=== PATIENT | male | born 1980 | race Caucasian/White ===

== ENCOUNTER 2017-07-22 14:21 | Inpatient (IN) | payer MEDICARE, MEDICAID, OTHER ==
[~2017-07-22] VITALS: Ht 180.3 cm; Wt 105.2 kg
[2017-07-22 14:21] VITALS: BP 129/67
[~2017-07-22 14:21] MED LIST: ABILIFY10 MG ORAL; ACETAMINOPHEN500 M5 PO; AMBIEN10 M1 ORAL; AMBIEN5 MG ORAL; ANUSOL-HC25 MG RECTAL; ASPIR 8181 MG ORAL; BENADRYL50 MG ORAL; COLACE250 MG ORAL; CYCLOBENZAPRINE10 MG ORAL; DEPAKOTE ER500 MG ORAL; DEPAKOTE500 MG PO; DESYREL100 MG PO; DILAUDID1 MG/1 ML PO; DILAUDID4 MG ORAL; DOCUSATE SODIU100 MG ORAL; DULCOLAX10 MG RC; FERROUS SULFAT325 M2 ORAL; FLEET ENEMA133 ML RECTAL; GABAPENTIN400 MG ORAL; GEODON20 MG ORAL; HUMALOG100 UNIT/3 SUBQ; HUMULIN R100 UNIT/1 SUBQ; IBUPROFEN600 MG ORAL; IMODIUM2 MG ORAL; LANTUS SOL100 UNIT/1 SUBQ; LEVEMIR FL100 UNIT/1 SUBQ; LEVEMIR100 UNIT/1 SUBQ; LISINOPRIL5 MG ORAL; LORAZEPAM1 MG ORAL; LYRICA75 M1 ORAL; METFORMIN HCL1000 M1 ORAL; MIRALAX17 GM ORAL; NEURONTIN300 MG ORAL; NORCO 5-325 TA1 EAC1 ORAL; NORCO 5-325 TA1 EACH ORAL; NOVOLIN R100 UNIT/1 SUBQ; NOVOLOG100 UNIT/3; NOVOLOG100 UNIT/3 SUBQ; PERCOCET 10-321 EAC1 PO; PERCOCET 10-321 EACH ORAL; PREPARATION H26 GM TP; QUETIAPINE FUM100 MG ORAL; QUETIAPINE FUM200 MG ORAL; RANITIDINE HCL300 MG ORAL; SENOKOT1 TAB ORAL; SERTRALINE HCL100 MG PO; SERTRALINE HCL25 MG ORAL; TRAMADOL HCL50 MG ORAL; UNOBMED; VIBRAMYCIN100 MG ORAL; WELLBUTRIN XL150 M1 ORAL; ZOFRAN4 MG/5 ML ORAL; ZOLOFT50 MG ORAL; ZOLPIDEM TARTRA10 MG ORAL; ZYPREXA5 MG ORAL
[2017-07-22] MEDS ORDERED: Solu-MEDROL 125mg Inj IVP ONE (14:45)
[2017-07-22] MEDS: Albuterol ud Inhalation HHN SCH ×3 (15:01→16:14)
[2017-07-22] MEDS: Ipratropium 0.02% Inh Soln 2.5ml UD HHN SCH ×3 (15:01→16:14)
[2017-07-22] MEDS ORDERED: Promethazine/Codeine 5ml UD ORAL PRN (15:30)
[2017-07-22] MEDS ORDERED: LORazepam Inj 2mg/ml 1ml IV PRN (15:30)
[2017-07-22] MEDS ORDERED: Albuterol/Ipratropium 3ml neb HHN PRN (15:30)
--- NOTE | 2017-07-22 15:59 | Diagnostic Imaging Report ---
Indication: SOB Technique: One view of the chest Comparison: 11/19/2015 Findings: Lungs and pleural spaces are clear. Heart size is normal. No significant change Impression: No acute process
[2017-07-22 16:23] LABS: BASOPHILS % (AUTO) 0.8 % (0.0-2.0); EOSINOPHILS % (AUTO) 1.2 % (0.0-3.0); LYMPHOCYTES % (AUTO) 24.9 % (20.0-45.0); MEAN CORPUSCULAR HEMOGLOBIN 29.8 PG (27.0-31.0); MEAN CORPUSCULAR HGB CONC 34.4 G/DL (32.0-36.0); MEAN CORPUSCULAR VOLUME 87 FL (80-99); MEAN PLATELET VOLUME 7.8 FL (6.5-10.1); MONOCYTES % (AUTO) 9.7 % (1.0-10.0); NEUTROPHILS % (AUTO) 63.4 % (45.0-75.0); PLATELET COUNT 266 K/UL (150-450); RED BLOOD COUNT 4.49 M/UL (4.70-6.10); RED CELL DISTRIBUTION WIDTH 12.5 % (11.6-14.8)
--- NOTE | 2017-07-22 16:43 | Emergency Room Report ---
History of Present Illness General Chief Complaint: Upper Respiratory Illness Source: Patient Present Illness HPI 36-year-old male presents ED for evaluation. Patient resides in a long term facility. Patient has had a persistent cough times one week with wheezing. Has history of COPD. Patient denies any fevers or chills. States cough is dry. Denies chest pain or shortness of breath. [facility]Chek at [facility] was also high fashion 400. Patient has a history of diabetes. Patient was given insulin afterwards. No aggravating relieving factors. Denies any other associated symptoms Allergies: Coded Allergies: No Known Allergies (Unverified , 02/06/15) Patient History Past Medical History: DM, HTN Past Surgical History: none Pertinent Family History: none Social History: Denies: smoking, alcohol use, drug use Immunizations: UTD Reviewed Nursing Documentation: PMH: Agreed, PSxH: Agreed Nursing Documentation-PMH Past Medical History: Deferred Hx Cardiac Problems: Yes Hx Hypertension: Yes Hx Diabetes: Yes Hx Cancer: No Hx Gastrointestinal Problems: No Hx Neurological Problems: No Hx Peripheral Neuropathy: Yes Hx Dizziness: Yes Hx Weakness: Yes Review of Systems All Other Systems: negative except mentioned in HPI Physical Exam Vital Signs Date Time Temp Pulse Resp B/P (MAP) Pulse Ox O2 Delivery O2 Flow Rate FiO2 07/22/17 14:12 97.3 103 15 129/67 97 Room Air Sp02 EP Interpretation: reviewed, normal General Appearance: no apparent distress, alert, GCS 15, non-toxic Head: normocephalic, atraumatic Eyes: bilateral eye normal inspection, bilateral eye PERRL ENT: hearing grossly normal, normal pharynx, no angioedema, normal voice Neck: full range of motion, supple/symm/no masses Respiratory: speaking full sentences, wheezing Cardiovascular #1: regular rate, rhythm, no edema Cardiovascular #2: 2+ carotid (R), 2+ carotid (L), 2+ radial (R), 2+ radial (L) , 2+ dorsalis pedis (R), 2+ dorsalis pedis (L) Gastrointestinal: normal bowel sounds, non tender, soft, non-distended, no guarding, no rebound Rectal: deferred Genitourinary: normal inspection, no CVA tenderness Musculoskeletal: back normal, gait/station normal, normal range of motion, non- tender Neurologic: alert, oriented x3, responsive, motor strength/tone normal, sensory intact, speech normal Psychiatric: judgement/insight normal, memory normal, mood/affect normal, no suicidal/homicidal ideation Reflexes: 3+ bicep (R), 3+ bicep (L), 3+ tricep (R), 3+ tricep (L), 3+ knee (R) , 3+ knee (L) Skin: normal color, no rash, warm/dry, well hydrated Lymphatic: no adenopathy Medical Decision Making Diagnostic Impression: Primary Impression: COPD exacerbation ER Course Hospital Course 36-year-old M presenting to ED with cough, wheezing h/o COPD Differential diagnoses include: Pneumonia, CHF exacerbation, pneumothorax, fluid overload Clinical course Patient placed on stretcher. On alarm security or surveillance monitor with stable vitals. After initial history and physical, I ordered nebulizer treatments. I ordered labs, IV fluids, EKG, chest x-ray, blood cultures, UA. Labs - minimal leukocytosis noted, hemoglobin/hematocrit stable, electrolytes okay, lactate okay, troponins negative CXR - hyperinflated lungs. no infiltrates abx given. IVFs given. Case discussed with Dr. Keen and he agreed to the patient to his service for further care and support I feel this is a highly complex case requiring extensive working including EKG/ Rhythm strip, Xray/CT/US, Blood/urine lab work, repeat exams while in ED, and administration of strong opiates/narcotics for pain control, admission to hospital or close patient follow up. Diagnosis - COPD exacerbation Patient admitted to floor in serious condition Labs Test 07/22/17 15:55 07/22/17 16:45 White Blood Count 12.0 K/UL (4.8-10.8) Red Blood Count 4.49 M/UL (4.70-6.10) Hemoglobin 13.4 G/DL (14.2-18.0) Hematocrit 38.9 % (42.0-52.0) Mean Corpuscular Volume 87 FL (80-99) Mean Corpuscular Hemoglobin 29.8 PG (27.0-31.0) Mean Corpuscular Hemoglobin Concent 34.4 G/DL (32.0-36.0) Red Cell Distribution Width 12.5 % (11.6-14.8) Platelet Count 266 K/UL (150-450) Mean Platelet Volume 7.8 FL (6.5-10.1) Neutrophils (%) (Auto) 63.4 % (45.0-75.0) Lymphocytes (%) (Auto) 24.9 % (20.0-45.0) Monocytes (%) (Auto) 9.7 % (1.0-10.0) Eosinophils (%) (Auto) 1.2 % (0.0-3.0) Basophils (%) (Auto) 0.8 % (0.0-2.0) Sodium Level 141 mEQ/L (135-145) Potassium Level 4.0 mEQ/L (3.4-4.9) Chloride Level 101 mEQ/L (98-107) Carbon Dioxide Level 25 mEQ/L (20-30) Anion Gap 15 (5-15) Blood Urea Nitrogen 12 mg/dL (7-23) Creatinine 0.8 mg/dL (0.7-1.2) Estimat Glomerular Filtration Rate > 60 mL/min (>60) Glucose Level 78 mg/dL (74-106) Lactic Acid Level 1.90 mmol/L (0.66-2.22) Calcium Level 9.5 mg/dL (8.6-10.2) Magnesium Level 1.8 mg/dL (1.7-2.5) Total Bilirubin 0.2 mg/dL (0.0-1.2) Aspartate Amino Transf (AST/SGOT) 19 U/L (5-40) Alanine Aminotransferase (ALT/SGPT) 25 U/L (3-41) Alkaline Phosphatase 66 U/L (40-129) Total Creatine Kinase 562 U/L (38-174) Creatine Kinase MB 3.4 ng/mL (< 6.7) Creatine Kinase MB Relative Index 0.6 Troponin I < 0.30 ng/mL (<=0.30) Pro-B-Type Natriuretic Peptide 42 pg/mL (0-125) Total Protein 6.6 g/dL (6.6-8.7) Albumin 4.1 g/dL (3.5-5.2) Globulin 2.5 g/dL Albumin/Globulin Ratio 1.6 (1.0-2.7) Acetone Level Negative (NEGATIVE) EKG Diagnostic Results Rate: normal Rhythm: NSR ST Segments: no acute changes ASA given to the pt in ED: No Rhythm Strip Diag. Results EP Interpretation: yes Rhythm: NSR, no PVC's, no ectopy Chest X-Ray Diagnostic Results Chest X-Ray Diagnostic Results : Chest X-Ray Ordered: Yes # of Views/Limited/Complete: 1 View Indication: Shortness of Breath EP Interpretation: Yes Interpretation: no consolidation, no effusion, no pneumothorax, no acute cardiopulmonary disease Impression: No acute disease Electronically Signed by: Electronically signed by Archie Wells MD Last Vital Signs Date Time Temp Pulse Resp B/P (MAP) Pulse Ox O2 Delivery O2 Flow Rate FiO2 07/22/17 16:10 96 18 99 Room Air 07/22/17 14:21 97.3 129/67 Status: improved Disposition: ADMITTED INPATIENT Condition: Serious Referrals: INDU KEEN (PCP) ARCHIE WELLS M.D. Jul 22, 2017 16:43
[2017-07-22 16:50] LABS: TROPONIN I < 0.30 ng/mL (<=0.30)
[2017-07-22 16:53] LABS: ALANINE AMINOTRANSFERASE 25 U/L (3-41); ALBUMIN/GLOBULIN RATIO 1.6 (1.0-2.7); ANION GAP 15 (5-15); ASPARTATE AMINO TRANSFERASE 19 U/L (5-40); CALCIUM 9.5 mg/dL (8.6-10.2); CARBON DIOXIDE 25 mEQ/L (20-30); CHLORIDE 101 mEQ/L (98-107); CREATININE 0.8 mg/dL (0.7-1.2); GLOMERULAR FILTRATION RATE > 60 mL/min (>60); HEMOLYSIS 5; MAGNESIUM 1.8 mg/dL (1.7-2.5); SODIUM 141 mEQ/L (135-145); TOTAL PROTEIN 6.6 g/dL (6.6-8.7)
[2017-07-22] MEDS ORDERED: Morphine Sulfate 4mg/ml Inj IVP ONE (17:00)
[2017-07-22 17:04] LABS: CKMB 3.4 ng/mL (< 6.7)
[2017-07-22 17:17] LABS: APPEARANCE,URINE CLEAR; KETONES,URINE 1+ (NEGATIVE); LEUKOCYTE ESTERASE ,URINE 1+ (NEGATIVE); NITRITE,URINE NEGATIVE (NEGATIVE); PH,URINE 7 (4.5-8.0); PROTEIN,URINE NEGATIVE (NEGATIVE); UROBILINOGEN,URINE NORMAL MG/DL (0.0-1.0)
[2017-07-22 17:30] LABS: RBC,URINE 0-2 /HPF (0 - 0); WBC,URINE 0-2 /HPF (0 - 0)
[2017-07-22 18:58] VITALS: BP 129/79
[2017-07-22] MEDS: Lyrica 75mg cap ORAL SCH (19:44)
[2017-07-22] MEDS: Solu-MEDROL 125mg Inj IV SCH ×2 (19:44→23:56)
[2017-07-22 20:06] VITALS: BP 131/79
[2017-07-22] MEDS: Theophylline ER 100mg ORAL SCH (20:48)
[2017-07-22] MEDS: Heparin 5000 units/ml inj SUBQ SCH ×2 (20:48→20:58)
[2017-07-22] MEDS: NovoLOG Insulin Flexpen SUBQ SCH (20:50)
[2017-07-22] MEDS: Morphine Sulfate 2mg/ml Inj IVP PRN (20:51)
[2017-07-22] MEDS ORDERED: Levemir Flexpen SUBQ SCH (21:00)
[2017-07-22] MEDS: Albuterol/Ipratropium 3ml neb HHN SCH (23:00)
--- NOTE | 2017-07-22 23:30 | History and Physical Report ---
DATE OF ADMISSION: 07/22/2017 TIME: 2 p.m. CONSULTANTS: 1. Lashanda Pham M.D. 2. Dr. Licona. 3. Charmaine Victor M.D. 4. Tavo Malhotra M.D. 5. Antonio Napier M.D. CHIEF COMPLAINT: Cough, wheeze, and hyperglycemia. Brief History: The patient is a 36-year-old male from [facility] presents with above-mentioned diagnoses, cough and wheezing for about two days, getting worse, lost his voice. He also had blood sugar of about 450 this morning. The patient came to [place], diagnosed with the above, awaiting bed to be transferred to medical floor. Currently, calm in bed, slight short of breath,. No complaints. PAST MEDICAL HISTORY: Diabetes, COPD, and encephalopathy. PAST SURGICAL HISTORY: Neck. MEDICATIONS: Albuterol, Atrovent, Solu-Medrol, IV fluids. ALLERGIES: The patient claims [employer]. Social History: Positive smoke. No alcohol. No intravenous drug abuse. FAMILY HISTORY: Noncontributory. Review of Systems: No chest pain. Slight short of breath. No nausea, vomiting or diarrhea. PHYSICAL EXAMINATION: GENERAL: Slightly anxious in bed, oriented x3, no acute distress. Vital Signs: Temperature is 97 degrees, pulse 103, respirations 15, and blood pressure 129/67. CARDIOVASCULAR: No murmurs. LUNGS: Poor exchange. Slight wheeze bilaterally. ABDOMEN: Bowel sounds are positive. Nontender and nondistended. EXTREMITIES: No cyanosis, clubbing, or edema. NEUROLOGICAL: The patient moves all extremities, slightly weak. LABORATORY DATA: The lab results are pending. ASSESSMENT: 1. Cough. 2. Wheeze. 3. Chronic obstructive pulmonary disease exacerbation. 4. Diabetes. 5. Hyperglycemia. 6. Encephalopathy. 7. Chronic pain. Plan: Continue pre-medications. OT/PT. Dietary evaluation. O2 and pulmonary treatment. Taper off steroids. Antibiotics per Infectious Diseases. Resume home medications. CBC and BMP in the morning. Dr. Pham, Dr. Licona, Dr. Victor, Dr. Malhotra, and Dr. Napier to consult. We will continue to follow this patient medically. Aniceto Sepulveda D.O. DR: JAZIEL JOB#: [id number] CC:
[2017-07-23] VITALS: BP 126/68
[2017-07-23] MEDS: Morphine Sulfate 2mg/ml Inj IVP PRN ×6 (00:53→21:42)
[2017-07-23] MEDS: Albuterol/Ipratropium 3ml neb HHN SCH ×6 (02:55→23:15)
[2017-07-23 04:00] VITALS: BP 116/60
[2017-07-23] MEDS: Solu-MEDROL 125mg Inj IV SCH ×3 (05:37→21:42)
[2017-07-23] MEDS: NovoLOG Insulin Flexpen SUBQ SCH ×7 (05:38→20:43)
[2017-07-23 07:21] LABS: MEAN CORPUSCULAR HEMOGLOBIN 30.2 PG (27.0-31.0); MEAN CORPUSCULAR HGB CONC 34.3 G/DL (32.0-36.0); MEAN CORPUSCULAR VOLUME 88 FL (80-99); MEAN PLATELET VOLUME 7.7 FL (6.5-10.1); PLATELET COUNT 232 K/UL (150-450); RED BLOOD COUNT 4.31 M/UL (4.70-6.10); RED CELL DISTRIBUTION WIDTH 12.6 % (11.6-14.8); WHITE BLOOD COUNT 11.8 K/UL (4.8-10.8)
[2017-07-23 07:31] LABS: ALANINE AMINOTRANSFERASE 22 U/L (3-41); ALBUMIN/GLOBULIN RATIO 1.5 (1.0-2.7); ANION GAP 17 (5-15); ASPARTATE AMINO TRANSFERASE 14 U/L (5-40); CALCIUM 9.1 mg/dL (8.6-10.2); CARBON DIOXIDE 23 mEQ/L (20-30); CHLORIDE 96 mEQ/L (98-107); CREATININE 0.8 mg/dL (0.7-1.2); GLOMERULAR FILTRATION RATE > 60 mL/min (>60); HEMOLYSIS 0; POTASSIUM 4.2 mEQ/L (3.4-4.9); SODIUM 136 mEQ/L (135-145); TOTAL PROTEIN 6.5 g/dL (6.6-8.7)
[2017-07-23 08:00] VITALS: BP 116/51
--- NOTE | 2017-07-23 08:18 | General Progress Note ---
Assessment/Plan Assessment/Plan (1) Chiari malformation type II (2) Degenerative disc disease, cervical (3) Lumbar degenerative disc disease (4) Arthritis, lumbar spine (5) Peripheral neuropathy (6) Hydrocephalus (7) Diabetes mellitus Pt will be continued on Morphine as needed. Pt was d/w Dr. Napier and he concurred. Thank you for the courtesy of this consultation. Subjective Date patient seen: Jul 23, 2017 Time patient seen: 07:30 - am Allergies: Coded Allergies: No Known Allergies (Unverified , 02/06/15) Subjective Constitutional: Reports: weakness, Denies: chills, diaphoresis, fever, malaise , no symptoms, other HEENT: Denies: blurred vision, double vision, ear discharge, ear pain, eye pain , mouth pain, mouth swelling, no symptoms, nose congestion, nose pain, other, tearing, throat pain, throat swelling Cardiovascular: Denies: chest pain, edema, irregular heart rate, lightheadedness, no symptoms, other, palpitations, syncope Respiratory: Denies: SOB at rest, SOB with excertion, cough, no symptoms, orthopnea, other, shortness of breath, sputum, stridor, wheezing Gastrointestinal/Abdominal: Denies: abdomen distended, abdominal pain, black stools, blood in stool, constipated, diarrhea, difficulty swallowing, nausea, no symptoms, other, poor appetite, poor fluid intake, rectal bleeding, tarry stools, vomiting Genitourinary: Denies: burning, discharge, flank pain, frequency, hematuria, incontinence, no symptoms, other, pain, urgency Neurologic/Psychiatric: Reports: headache, numbness, tingling, weakness, Denies : anxiety, depressed, emotional problems, no symptoms, other, paresthesia, pre- existing deficit, seizure, tremors Endocrine: Denies: excessive sweating, flushing, increased hunger, increased thirst, increased urine, intolerance to cold, intolerance to heat, no symptoms, other, unexplained weight gain, unexplained weight loss Hematologic/Lymphatic: Denies: anemia, easy bleeding, easy bruising, no symptoms, other Subjective Pt is a known patient from prior admissions and has been admitted under the care of Dr. Sepulveda for COPD exacerbation. He has been started on Morphine 2mg IV Q4H PRN which has help to reduce his pain as per the patient. Objective Last 24 Hour Vital Signs Date Time Temp Pulse Resp B/P (MAP) Pulse Ox O2 Delivery O2 Flow Rate FiO2 07/23/17 07:38 105 16 98 Nasal Cannula 2.0 07/23/17 07:25 99 Nasal Cannula 2.0 07/23/17 07:25 105 20 Room Air 07/23/17 07:25 Nasal Cannula 2.0 07/23/17 07:25 105 20 99 Nasal Cannula 2.0 07/23/17 04:00 97.7 112 19 116/60 95 Room Air 07/23/17 03:05 109 16 98 Nasal Cannula 2.0 07/23/17 02:56 112 18 95 Nasal Cannula 2.0 07/23/17 00:00 97.9 101 18 126/68 95 Nasal Cannula 2.0 07/22/17 23:08 109 18 99 Nasal Cannula 2.0 07/22/17 23:01 109 18 97 Nasal Cannula 2.0 07/22/17 20:50 105 18 97 Nasal Cannula 2.0 07/22/17 20:49 102 20 Nasal Cannula 2.0 07/22/17 20:49 Nasal Cannula 2.0 07/22/17 20:49 94 Nasal Cannula 2.0 07/22/17 20:40 102 20 94 Nasal Cannula 2.0 07/22/17 20:06 98.1 102 20 131/79 93 Room Air 07/22/17 18:58 98.2 106 18 129/79 95 07/22/17 17:48 97.3 97 19 127/67 98 Room Air 07/22/17 16:10 96 18 99 Room Air 07/22/17 16:00 100 20 Room Air 07/22/17 15:33 103 20 100 Room Air 07/22/17 15:16 101 18 99 Room Air 07/22/17 15:15 99 20 100 Room Air 07/22/17 15:00 99 18 Room Air 07/22/17 15:00 99 18 99 Room Air 07/22/17 14:21 97.3 100 15 129/67 97 Room Air 07/22/17 14:12 97.3 103 15 129/67 97 Room Air Laboratory Tests 07/22/17 15:55: White Blood Count 12.0H, Red Blood Count 4.49L, Hemoglobin 13.4L, Hematocrit 38.9L, Mean Corpuscular Volume 87, Mean Corpuscular Hemoglobin 29.8, Mean Corpuscular Hemoglobin Concent 34.4, Red Cell Distribution Width 12.5, Platelet Count 266, Mean Platelet Volume 7.8, Neutrophils (%) (Auto) 63.4, Lymphocytes (% ) (Auto) 24.9, Monocytes (%) (Auto) 9.7, Eosinophils (%) (Auto) 1.2, Basophils ( %) (Auto) 0.8, Sodium Level 141, Potassium Level 4.0, Chloride Level 101, Carbon Dioxide Level 25, Anion Gap 15, Blood Urea Nitrogen 12, Creatinine 0.8, Estimat Glomerular Filtration Rate > 60, Glucose Level 78, Lactic Acid Level 1.90, Calcium Level 9.5, Magnesium Level 1.8, Total Bilirubin 0.2, Aspartate Amino Transf (AST/SGOT) 19, Alanine Aminotransferase (ALT/SGPT) 25, Alkaline Phosphatase 66, Total Creatine Kinase 562H, Creatine Kinase MB 3.4, Creatine Kinase MB Relative Index 0.6, Troponin I < 0.30, Pro-B-Type Natriuretic Peptide 42, Total Protein 6.6, Albumin 4.1, Globulin 2.5, Albumin/Globulin Ratio 1.6, Acetone Level Negative 07/22/17 16:45: Urine Color Pale yellow, Urine Appearance Clear, Urine pH 7, Urine Specific [place] 1.010, Urine Protein Negative, Urine Glucose (UA) Negative, Urine Ketones 1+H, Urine Occult Blood Negative, Urine Nitrite Negative, Urine Bilirubin Negative, Urine Urobilinogen Normal, Urine Leukocyte Esterase 1+H, Urine RBC 0-2H, Urine WBC 0-2, Urine Squamous Epithelial Cells None, Urine Bacteria None 07/23/17 05:10: White Blood Count 11.8H, Red Blood Count 4.31L, Hemoglobin 13.0L, Hematocrit 37.9L, Mean Corpuscular Volume 88, Mean Corpuscular Hemoglobin 30.2, Mean Corpuscular Hemoglobin Concent 34.3, Red Cell Distribution Width 12.6, Platelet Count 232, Mean Platelet Volume 7.7, Neutrophils (%) (Auto) , Lymphocytes (%) ( Auto) , Monocytes (%) (Auto) , Eosinophils (%) (Auto) , Basophils (%) (Auto) , Sodium Level 136, Potassium Level 4.2, Chloride Level 96L, Carbon Dioxide Level 23, Anion Gap 17H, Blood Urea Nitrogen 15, Creatinine 0.8, Estimat Glomerular Filtration Rate > 60, Glucose Level 335#H, Calcium Level 9.1, Total Bilirubin 0.3, Aspartate Amino Transf (AST/SGOT) 14, Alanine Aminotransferase (ALT/SGPT) 22, Alkaline Phosphatase 64, Total Protein 6.5L, Albumin 3.9, Globulin 2.6, Albumin/Globulin Ratio 1.5 Height (Feet): 5 Height (Inches): 11.00 Weight (Pounds): 232 Objective General Appearance: no apparent distress, alert EENT: normal ENT inspection, TMs normal Neck: supple, limited range of motion, muscle spasm Cardiovascular: normal rate, regular rhythm Respiratory/Chest: decreased breath sounds Abdomen: non tender, soft Extremities: non-tender Edema: no edema noted Arm (L), no edema noted Arm (R), no edema noted Leg (L), no edema noted Leg (R), no edema noted Pedal (L), no edema noted Pedal (R), no edema noted Generalized Neurologic: alert, oriented x 3 Skin: warm/dry TREE SINGLETON Jul 23, 2017 08:18
[2017-07-23] MEDS: Theophylline ER 100mg ORAL SCH ×2 (08:27→20:40)
[2017-07-23] MEDS: Ziprasidone 20mg cap ORAL SCH (08:29)
[2017-07-23] MEDS: Lyrica 75mg cap ORAL SCH ×3 (08:29→18:21)
[2017-07-23] MEDS: Heparin 5000 units/ml inj SUBQ SCH ×3 (08:34→20:49)
[2017-07-23 08:58] LABS: BAND NEUTROPHILS % (MANUAL) 6 % (0-8); BASOPHILS % (MANUAL) 0 % (0-2); EOSINOPHILS % (MANUAL) 0 % (0-3); LYMPHOCYTES % (MANUAL) 16 % (20-45); NEUTROPHILS % (MANUAL) 78 % (45-75); PLATELET ESTIMATE ADEQUATE; PLATELET MORPHOLOGY NORMAL; TOTAL CELLS COUNTED 100
[2017-07-23 12:00] VITALS: BP 107/63
--- NOTE | 2017-07-23 13:11 | General Progress Note ---
Assessment/Plan Problem List: (1) Diabetes mellitus ICD Codes: E11.9 - Diabetes mellitus SNOMED: 16754276 (2) Generalized weakness ICD Codes: R53.1 - Weakness SNOMED: 23005233 (3) COPD exacerbation ICD Codes: J44.1 - Chronic obstructive pulmonary disease with (acute) exacerbation SNOMED: 450080350, 935839965 (4) Hyperglycemia due to type 2 diabetes mellitus ICD Codes: E11.65 - Type 2 diabetes mellitus with hyperglycemia SNOMED: 696597388726476 (5) Opiate dependence ICD Codes: F11.20 - Opioid dependence SNOMED: 37292243 (6) Anxiety ICD Codes: F41.9 - Anxiety disorder, unspecified; Z68.41 - Body mass index (BMI ) 40.0-44.9, adult SNOMED: 34276691 Status: stable, progressing, tolerating diet Assessment/Plan o2 pulm tx abx ot pt diet cbc bmp am Subjective Constitutional: Reports: weakness Respiratory: Reports: shortness of breath Allergies: Coded Allergies: No Known Allergies (Unverified , 02/06/15) All Systems: reviewed and negative except above Subjective o2 nc sleepy Objective Last 24 Hour Vital Signs Date Time Temp Pulse Resp B/P (MAP) Pulse Ox O2 Delivery O2 Flow Rate FiO2 07/23/17 12:00 97.9 124 19 107/63 94 Nasal Cannula 4.0 07/23/17 11:00 103 18 99 Nasal Cannula 2.0 07/23/17 10:11 97.7 07/23/17 09:28 97.7 07/23/17 08:00 98.1 90 18 116/51 96 Nasal Cannula 07/23/17 07:38 105 16 98 Nasal Cannula 2.0 07/23/17 07:25 99 Nasal Cannula 2.0 07/23/17 07:25 105 20 Room Air 07/23/17 07:25 Nasal Cannula 2.0 07/23/17 07:25 105 20 99 Nasal Cannula 2.0 07/23/17 04:00 97.7 112 19 116/60 95 Room Air 07/23/17 03:05 109 16 98 Nasal Cannula 2.0 07/23/17 02:56 112 18 95 Nasal Cannula 2.0 07/23/17 00:00 97.9 101 18 126/68 95 Nasal Cannula 2.0 07/22/17 23:08 109 18 99 Nasal Cannula 2.0 07/22/17 23:01 109 18 97 Nasal Cannula 2.0 07/22/17 20:50 105 18 97 Nasal Cannula 2.0 07/22/17 20:49 102 20 Nasal Cannula 2.0 07/22/17 20:49 Nasal Cannula 2.0 07/22/17 20:49 94 Nasal Cannula 2.0 07/22/17 20:40 102 20 94 Nasal Cannula 2.0 07/22/17 20:06 98.1 102 20 131/79 93 Room Air 07/22/17 18:58 98.2 106 18 129/79 95 07/22/17 17:48 97.3 97 19 127/67 98 Room Air 07/22/17 16:10 96 18 99 Room Air 07/22/17 16:00 100 20 Room Air 07/22/17 15:33 103 20 100 Room Air 07/22/17 15:16 101 18 99 Room Air 07/22/17 15:15 99 20 100 Room Air 07/22/17 15:00 99 18 Room Air 07/22/17 15:00 99 18 99 Room Air 07/22/17 14:21 97.3 100 15 129/67 97 Room Air 07/22/17 14:12 97.3 103 15 129/67 97 Room Air Laboratory Tests 07/22/17 15:55: White Blood Count 12.0H, Red Blood Count 4.49L, Hemoglobin 13.4L, Hematocrit 38.9L, Mean Corpuscular Volume 87, Mean Corpuscular Hemoglobin 29.8, Mean Corpuscular Hemoglobin Concent 34.4, Red Cell Distribution Width 12.5, Platelet Count 266, Mean Platelet Volume 7.8, Neutrophils (%) (Auto) 63.4, Lymphocytes (% ) (Auto) 24.9, Monocytes (%) (Auto) 9.7, Eosinophils (%) (Auto) 1.2, Basophils ( %) (Auto) 0.8, Sodium Level 141, Potassium Level 4.0, Chloride Level 101, Carbon Dioxide Level 25, Anion Gap 15, Blood Urea Nitrogen 12, Creatinine 0.8, Estimat Glomerular Filtration Rate > 60, Glucose Level 78, Lactic Acid Level 1.90, Calcium Level 9.5, Magnesium Level 1.8, Total Bilirubin 0.2, Aspartate Amino Transf (AST/SGOT) 19, Alanine Aminotransferase (ALT/SGPT) 25, Alkaline Phosphatase 66, Total Creatine Kinase 562H, Creatine Kinase MB 3.4, Creatine Kinase MB Relative Index 0.6, Troponin I < 0.30, Pro-B-Type Natriuretic Peptide 42, Total Protein 6.6, Albumin 4.1, Globulin 2.5, Albumin/Globulin Ratio 1.6, Acetone Level Negative 07/22/17 16:45: Urine Color Pale yellow, Urine Appearance Clear, Urine pH 7, Urine Specific [place] 1.010, Urine Protein Negative, Urine Glucose (UA) Negative, Urine Ketones 1+H, Urine Occult Blood Negative, Urine Nitrite Negative, Urine Bilirubin Negative, Urine Urobilinogen Normal, Urine Leukocyte Esterase 1+H, Urine RBC 0-2H, Urine WBC 0-2, Urine Squamous Epithelial Cells None, Urine Bacteria None 07/23/17 05:10: White Blood Count 11.8H, Red Blood Count 4.31L, Hemoglobin 13.0L, Hematocrit 37.9L, Mean Corpuscular Volume 88, Mean Corpuscular Hemoglobin 30.2, Mean Corpuscular Hemoglobin Concent 34.3, Red Cell Distribution Width 12.6, Platelet Count 232, Mean Platelet Volume 7.7, Neutrophils (%) (Auto) , Lymphocytes (%) ( Auto) , Monocytes (%) (Auto) , Eosinophils (%) (Auto) , Basophils (%) (Auto) , Sodium Level 136, Potassium Level 4.2, Chloride Level 96L, Carbon Dioxide Level 23, Anion Gap 17H, Blood Urea Nitrogen 15, Creatinine 0.8, Estimat Glomerular Filtration Rate > 60, Glucose Level 335#H, Calcium Level 9.1, Total Bilirubin 0.3, Aspartate Amino Transf (AST/SGOT) 14, Alanine Aminotransferase (ALT/SGPT) 22, Alkaline Phosphatase 64, Total Protein 6.5L, Albumin 3.9, Globulin 2.6, Albumin/Globulin Ratio 1.5, Differential Total Cells Counted 100, Neutrophils % (Manual) 78H, Lymphocytes % (Manual) 16L, Monocytes % (Manual) 0L, Eosinophils % (Manual) 0, Basophils % (Manual) 0, Band Neutrophils 6, Platelet Estimate Adequate, Platelet Morphology Normal Height (Feet): 5 Height (Inches): 11.00 Weight (Pounds): 232 General Appearance: lethargic EENT: normal ENT inspection Neck: normal alignment Cardiovascular: normal peripheral pulses, normal rate, regular rhythm Respiratory/Chest: chest wall non-tender, lungs clear, decreased breath sounds Abdomen: normal bowel sounds, non tender, soft Extremities: normal inspection Edema: no edema noted Arm (L), no edema noted Arm (R), no edema noted Leg (L), no edema noted Leg (R), no edema noted Pedal (L), no edema noted Pedal (R), no edema noted Generalized Neurologic: responsive, motor weakness Skin: normal pigmentation, warm/dry INDU KEEN Jul 23, 2017 13:11
--- NOTE | 2017-07-23 14:07 | Infectious Diseases Prog Note ---
Assessment/Plan Problems: (1) COPD exacerbation Assessment & Plan: will start doxycycline, continue inhalers and steroids (2) Hyperglycemia due to type 2 diabetes mellitus Assessment & Plan: suspect poor compliance , monitor blood sugurar to keep tight glycemic control between 80-120 (3) Diabetes mellitus Assessment & Plan: recommend tight glycemic control to keep blood glucose between 80-120 Subjective Allergies: Coded Allergies: No Known Allergies (Unverified , 02/06/15) Objective Vital Signs Last 24 Hour Vital Signs Date Time Temp Pulse Resp B/P (MAP) Pulse Ox O2 Delivery O2 Flow Rate FiO2 07/23/17 13:31 97.9 07/23/17 12:00 97.9 124 19 107/63 94 Nasal Cannula 4.0 07/23/17 11:10 103 16 98 Nasal Cannula 2.0 07/23/17 11:00 103 18 99 Nasal Cannula 2.0 07/23/17 10:11 97.7 07/23/17 08:00 98.1 90 18 116/51 96 Nasal Cannula 07/23/17 07:38 105 16 98 Nasal Cannula 2.0 07/23/17 07:25 99 Nasal Cannula 2.0 07/23/17 07:25 105 20 Room Air 07/23/17 07:25 Nasal Cannula 2.0 07/23/17 07:25 105 20 99 Nasal Cannula 2.0 07/23/17 04:00 97.7 112 19 116/60 95 Room Air 07/23/17 03:05 109 16 98 Nasal Cannula 2.0 07/23/17 02:56 112 18 95 Nasal Cannula 2.0 07/23/17 00:00 97.9 101 18 126/68 95 Nasal Cannula 2.0 07/22/17 23:08 109 18 99 Nasal Cannula 2.0 07/22/17 23:01 109 18 97 Nasal Cannula 2.0 07/22/17 20:50 105 18 97 Nasal Cannula 2.0 07/22/17 20:49 102 20 Nasal Cannula 2.0 07/22/17 20:49 Nasal Cannula 2.0 07/22/17 20:49 94 Nasal Cannula 2.0 07/22/17 20:40 102 20 94 Nasal Cannula 2.0 07/22/17 20:06 98.1 102 20 131/79 93 Room Air 07/22/17 18:58 98.2 106 18 129/79 95 07/22/17 17:48 97.3 97 19 127/67 98 Room Air 07/22/17 16:10 96 18 99 Room Air 07/22/17 16:00 100 20 Room Air 07/22/17 15:33 103 20 100 Room Air 07/22/17 15:16 101 18 99 Room Air 07/22/17 15:15 99 20 100 Room Air 07/22/17 15:00 99 18 Room Air 07/22/17 15:00 99 18 99 Room Air 07/22/17 14:21 97.3 100 15 129/67 97 Room Air 07/22/17 14:12 97.3 103 15 129/67 97 Room Air Height (Feet): 5 Height (Inches): 11.00 Weight (Pounds): 232 Laboratory Tests Test 07/22/17 15:55 07/22/17 16:45 07/23/17 05:10 White Blood Count 12.0 K/UL (4.8-10.8) H 11.8 K/UL (4.8-10.8) H Red Blood Count 4.49 M/UL (4.70-6.10) L 4.31 M/UL (4.70-6.10) L Hemoglobin 13.4 G/DL (14.2-18.0) L 13.0 G/DL (14.2-18.0) L Hematocrit 38.9 % (42.0-52.0) L 37.9 % (42.0-52.0) L Mean Corpuscular Volume 87 FL (80-99) 88 FL (80-99) Mean Corpuscular Hemoglobin 29.8 PG (27.0-31.0) 30.2 PG (27.0-31.0) Mean Corpuscular Hemoglobin Concent 34.4 G/DL (32.0-36.0) 34.3 G/DL (32.0-36.0) Red Cell Distribution Width 12.5 % (11.6-14.8) 12.6 % (11.6-14.8) Platelet Count 266 K/UL (150-450) 232 K/UL (150-450) Mean Platelet Volume 7.8 FL (6.5-10.1) 7.7 FL (6.5-10.1) Neutrophils (%) (Auto) 63.4 % (45.0-75.0) % (45.0-75.0) Lymphocytes (%) (Auto) 24.9 % (20.0-45.0) % (20.0-45.0) Monocytes (%) (Auto) 9.7 % (1.0-10.0) % (1.0-10.0) Eosinophils (%) (Auto) 1.2 % (0.0-3.0) % (0.0-3.0) Basophils (%) (Auto) 0.8 % (0.0-2.0) % (0.0-2.0) Sodium Level 141 mEQ/L (135-145) 136 mEQ/L (135-145) Potassium Level 4.0 mEQ/L (3.4-4.9) 4.2 mEQ/L (3.4-4.9) Chloride Level 101 mEQ/L (98-107) 96 mEQ/L (98-107) L Carbon Dioxide Level 25 mEQ/L (20-30) 23 mEQ/L (20-30) Anion Gap 15 (5-15) 17 (5-15) H Blood Urea Nitrogen 12 mg/dL (7-23) 15 mg/dL (7-23) Creatinine 0.8 mg/dL (0.7-1.2) 0.8 mg/dL (0.7-1.2) Estimat Glomerular Filtration Rate > 60 mL/min (>60) > 60 mL/min (>60) Glucose Level 78 mg/dL (74-106) 335 mg/dL (74-106) #H Lactic Acid Level 1.90 mmol/L (0.66-2.22) Calcium Level 9.5 mg/dL (8.6-10.2) 9.1 mg/dL (8.6-10.2) Magnesium Level 1.8 mg/dL (1.7-2.5) Total Bilirubin 0.2 mg/dL (0.0-1.2) 0.3 mg/dL (0.0-1.2) Aspartate Amino Transf (AST/SGOT) 19 U/L (5-40) 14 U/L (5-40) Alanine Aminotransferase (ALT/SGPT) 25 U/L (3-41) 22 U/L (3-41) Alkaline Phosphatase 66 U/L (40-129) 64 U/L (40-129) Total Creatine Kinase 562 U/L (38-174) H Creatine Kinase MB 3.4 ng/mL (< 6.7) Creatine Kinase MB Relative Index 0.6 Troponin I < 0.30 ng/mL (<=0.30) Pro-B-Type Natriuretic Peptide 42 pg/mL (0-125) Total Protein 6.6 g/dL (6.6-8.7) 6.5 g/dL (6.6-8.7) L Albumin 4.1 g/dL (3.5-5.2) 3.9 g/dL (3.5-5.2) Globulin 2.5 g/dL 2.6 g/dL Albumin/Globulin Ratio 1.6 (1.0-2.7) 1.5 (1.0-2.7) Acetone Level Negative (NEGATIVE) Urine Color Pale yellow Urine Appearance Clear Urine pH 7 (4.5-8.0) Urine Specific [place] 1.010 (1.005-1.035) Urine Protein Negative (NEGATIVE) Urine Glucose (UA) Negative (NEGATIVE) Urine Ketones 1+ (NEGATIVE) H Urine Occult Blood Negative (NEGATIVE) Urine Nitrite Negative (NEGATIVE) Urine Bilirubin Negative (NEGATIVE) Urine Urobilinogen Normal MG/DL (0.0-1.0) Urine Leukocyte Esterase 1+ (NEGATIVE) H Urine RBC 0-2 /HPF (0 - 0) H Urine WBC 0-2 /HPF (0 - 0) Urine Squamous Epithelial Cells None /LPF (NONE/OCC) Urine Bacteria None /HPF (NONE) Differential Total Cells Counted 100 Neutrophils % (Manual) 78 % (45-75) H Lymphocytes % (Manual) 16 % (20-45) L Monocytes % (Manual) 0 % (1-10) L Eosinophils % (Manual) 0 % (0-3) Basophils % (Manual) 0 % (0-2) Band Neutrophils 6 % (0-8) Platelet Estimate Adequate Platelet Morphology Normal Current Medications Medications (Trade) Dose Ordered Sig/Sofia Route PRN Reason Start Time Stop Time Status Last Admin Dose Admin Acetaminophen (Tylenol) 650 mg Q4H PRN ORAL FEVER>100.5 07/22/17 15:30 08/21/17 15:29 Albuterol/ Ipratropium (DuoNeb 0.5-3(2.5)mg/3ml) 3 ml Q4HRT HHN 07/22/17 23:00 07/27/17 22:59 07/23/17 11:00 Clonidine HCl (Catapres) 0.1 mg Q4H PRN ORAL sbp more than 160 07/22/17 15:30 08/21/17 15:29 Dextrose (Dextrose 50%) STAT PRN IV Hypoglycemia 07/22/17 18:30 08/21/17 18:29 Heparin Sodium (Porcine) (Heparin 5000 units/ml) 5,000 units EVERY 12 HOURS SUBQ 07/22/17 21:00 08/21/17 20:59 07/23/17 08:34 Insulin Aspart (NovoLOG) BEFORE MEALS AND HS SUBQ 07/22/17 21:00 08/21/17 20:59 07/23/17 11:39 Insulin Aspart (NovoLOG) 8 units NOVOTIAC SUBQ 07/23/17 06:30 08/22/17 06:29 07/23/17 11:38 Insulin Detemir (Levemir) 10 units BEDTIME SUBQ 07/22/17 21:00 08/21/17 20:59 07/22/17 20:49 Lorazepam (Ativan 2mg/ml 1ml) 0.5 mg Q4H PRN IV For Anxiety 07/22/17 15:30 07/29/17 15:29 Methylprednisolone Sodium Succinate (Solu-MEDROL) 60 mg EVERY 6 HOURS IV 07/22/17 19:30 08/21/17 19:29 07/23/17 12:32 Morphine Sulfate (Morphine Sulfate) 2 mg Q4H PRN IVP severe pain 7-10 07/22/17 15:30 07/29/17 15:29 07/23/17 13:49 Nitroglycerin (Ntg) 0.4 mg Q5M X 3 DOSES PRN SL Prn Chest Pain 07/22/17 15:30 08/21/17 15:29 Ondansetron HCl (Zofran) 4 mg Q6H PRN IVP Nausea & Vomiting 07/22/17 15:30 08/21/17 15:29 Pregabalin (Lyrica) 75 mg THREE TIMES A DAY ORAL 07/22/17 19:30 08/21/17 19:29 07/23/17 12:32 Promethazine HCl/ Codeine (Phenergan with Codeine) 5 ml Q6H PRN ORAL cough 07/22/17 15:30 08/21/17 15:29 Temazepam (Restoril) 15 mg HSPRN PRN ORAL Insomnia 07/22/17 21:00 07/29/17 20:59 07/22/17 22:57 Theophylline (Bobby-Dur) 100 mg EVERY 12 HOURS ORAL 07/22/17 21:00 08/21/17 20:59 07/23/17 08:27 Ziprasidone (Geodon) 20 mg DAILY ORAL 07/23/17 09:00 08/22/17 08:59 07/23/17 08:29 Teresita Sewell M.D. Jul 23, 2017 14:07
[2017-07-23 16:00] VITALS: BP 127/63
--- NOTE | 2017-07-23 16:18 | Consultation ---
History of Present Illness General Date patient seen: Jul 22, 2017 Chief Complaint: Upper Respiratory Illness Present Illness HPI 36-year-old male with COPD, Diabetes, custodial resident presented to ED for evaluation a persistent cough times one week with wheezing. Patient denies any fevers or chills. . Denies chest pain or shortness of breath. No aggravating relieving factors. He is admitted for acute exacerbation of COPd and bronchitis. Allergies: Coded Allergies: No Known Allergies (Unverified , 02/06/15) Medication History Scheduled Pregabalin* (Lyrica*), 75 MG ORAL THREE TIMES A DAY, (Reported) Ziprasidone Hcl* (Geodon*), 20 MG ORAL DAILY, (Reported) Scheduled PRN Hydromorphone Hcl (Dilaudid), 1 MG PO Q4HR PRN for For Pain, (Reported) Miscellaneous Medications Insulin Aspart* (Novolog*), 0 SUBQ, (Reported) Unable to Obtain Medications (Unable To Obtain Meds), (Reported) Patient History Healthcare decision maker Resuscitation status Advanced Directive on File Past Medical/Surgical History Past Medical/Surgical History: (1) Anxiety (2) Diabetes mellitus (3) Lumbar back pain Review of Systems All Other Systems: negative except mentioned in HPI Physical Exam General Appearance: WD/WN Lines, tubes and drains: peripheral HEENT: normocephalic, atraumatic Neck: non-tender, normal alignment Respiratory/Chest: chest wall non-tender, lungs clear Cardiovascular/Chest: normal peripheral pulses, normal rate Abdomen: normal bowel sounds, non tender Genitourinary/Rectal: normal genital exam, normal rectal exam Extremities: normal range of motion, non-tender 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 normal Last 24 Hour Vital Signs Date Time Temp Pulse Resp B/P (MAP) Pulse Ox O2 Delivery O2 Flow Rate FiO2 07/23/17 14:57 100 16 99 Nasal Cannula 3.0 32 07/23/17 14:47 100 18 99 Nasal Cannula 2.0 28 07/23/17 14:19 97.9 07/23/17 13:31 97.9 07/23/17 12:00 97.9 124 19 107/63 94 Nasal Cannula 4.0 07/23/17 11:10 103 16 98 Nasal Cannula 2.0 28 07/23/17 11:00 103 18 99 Nasal Cannula 2.0 28 07/23/17 08:00 98.1 90 18 116/51 96 Nasal Cannula 07/23/17 07:38 105 16 98 Nasal Cannula 2.0 07/23/17 07:25 99 Nasal Cannula 2.0 07/23/17 07:25 105 20 Room Air 07/23/17 07:25 Nasal Cannula 2.0 07/23/17 07:25 105 20 99 Nasal Cannula 2.0 07/23/17 04:00 97.7 112 19 116/60 95 Room Air 07/23/17 03:05 109 16 98 Nasal Cannula 2.0 07/23/17 02:56 112 18 95 Nasal Cannula 2.0 07/23/17 00:00 97.9 101 18 126/68 95 Nasal Cannula 2.0 07/22/17 23:08 109 18 99 Nasal Cannula 2.0 07/22/17 23:01 109 18 97 Nasal Cannula 2.0 07/22/17 20:50 105 18 97 Nasal Cannula 2.0 07/22/17 20:49 102 20 Nasal Cannula 2.0 07/22/17 20:49 Nasal Cannula 2.0 07/22/17 20:49 94 Nasal Cannula 2.0 07/22/17 20:40 102 20 94 Nasal Cannula 2.0 07/22/17 20:06 98.1 102 20 131/79 93 Room Air 07/22/17 18:58 98.2 106 18 129/79 95 07/22/17 17:48 97.3 97 19 127/67 98 Room Air Laboratory Tests Test 07/22/17 16:45 07/23/17 05:10 Urine Color Pale yellow Urine Appearance Clear Urine pH 7 (4.5-8.0) Urine Specific [place] 1.010 (1.005-1.035) Urine Protein Negative (NEGATIVE) Urine Glucose (UA) Negative (NEGATIVE) Urine Ketones 1+ (NEGATIVE) H Urine Occult Blood Negative (NEGATIVE) Urine Nitrite Negative (NEGATIVE) Urine Bilirubin Negative (NEGATIVE) Urine Urobilinogen Normal MG/DL (0.0-1.0) Urine Leukocyte Esterase 1+ (NEGATIVE) H Urine RBC 0-2 /HPF (0 - 0) H Urine WBC 0-2 /HPF (0 - 0) Urine Squamous Epithelial Cells None /LPF (NONE/OCC) Urine Bacteria None /HPF (NONE) White Blood Count 11.8 K/UL (4.8-10.8) H Red Blood Count 4.31 M/UL (4.70-6.10) L Hemoglobin 13.0 G/DL (14.2-18.0) L Hematocrit 37.9 % (42.0-52.0) L Mean Corpuscular Volume 88 FL (80-99) Mean Corpuscular Hemoglobin 30.2 PG (27.0-31.0) Mean Corpuscular Hemoglobin Concent 34.3 G/DL (32.0-36.0) Red Cell Distribution Width 12.6 % (11.6-14.8) Platelet Count 232 K/UL (150-450) Mean Platelet Volume 7.7 FL (6.5-10.1) Neutrophils (%) (Auto) % (45.0-75.0) Lymphocytes (%) (Auto) % (20.0-45.0) Monocytes (%) (Auto) % (1.0-10.0) Eosinophils (%) (Auto) % (0.0-3.0) Basophils (%) (Auto) % (0.0-2.0) Differential Total Cells Counted 100 Neutrophils % (Manual) 78 % (45-75) H Lymphocytes % (Manual) 16 % (20-45) L Monocytes % (Manual) 0 % (1-10) L Eosinophils % (Manual) 0 % (0-3) Basophils % (Manual) 0 % (0-2) Band Neutrophils 6 % (0-8) Platelet Estimate Adequate Platelet Morphology Normal Sodium Level 136 mEQ/L (135-145) Potassium Level 4.2 mEQ/L (3.4-4.9) Chloride Level 96 mEQ/L (98-107) L Carbon Dioxide Level 23 mEQ/L (20-30) Anion Gap 17 (5-15) H Blood Urea Nitrogen 15 mg/dL (7-23) Creatinine 0.8 mg/dL (0.7-1.2) Estimat Glomerular Filtration Rate > 60 mL/min (>60) Glucose Level 335 mg/dL (74-106) #H Calcium Level 9.1 mg/dL (8.6-10.2) Total Bilirubin 0.3 mg/dL (0.0-1.2) Aspartate Amino Transf (AST/SGOT) 14 U/L (5-40) Alanine Aminotransferase (ALT/SGPT) 22 U/L (3-41) Alkaline Phosphatase 64 U/L (40-129) Total Protein 6.5 g/dL (6.6-8.7) L Albumin 3.9 g/dL (3.5-5.2) Globulin 2.6 g/dL Albumin/Globulin Ratio 1.5 (1.0-2.7) Height (Feet): 5 Height (Inches): 11.00 Weight (Pounds): 232 Medications Current Medications Medications (Trade) Dose Ordered Sig/Sofia Route PRN Reason Start Time Stop Time Status Last Admin Dose Admin Acetaminophen (Tylenol) 650 mg Q4H PRN ORAL FEVER>100.5 07/22/17 15:30 08/21/17 15:29 Albuterol/ Ipratropium (DuoNeb 0.5-3(2.5)mg/3ml) 3 ml Q4HRT HHN 07/22/17 23:00 07/27/17 22:59 07/23/17 14:47 Clonidine HCl (Catapres) 0.1 mg Q4H PRN ORAL sbp more than 160 07/22/17 15:30 08/21/17 15:29 Dextrose (Dextrose 50%) STAT PRN IV Hypoglycemia 07/22/17 18:30 08/21/17 18:29 Doxycycline Monohydrate (Vibramycin) 100 mg EVERY 12 HOURS ORAL 07/23/17 15:00 07/30/17 14:59 07/23/17 15:08 Heparin Sodium (Porcine) (Heparin 5000 units/ml) 5,000 units EVERY 12 HOURS SUBQ 07/22/17 21:00 08/21/17 20:59 07/23/17 08:34 Insulin Aspart (NovoLOG) BEFORE MEALS AND HS SUBQ 07/22/17 21:00 08/21/17 20:59 07/23/17 11:39 Insulin Aspart (NovoLOG) 8 units NOVOTIAC SUBQ 07/23/17 06:30 08/22/17 06:29 07/23/17 11:38 Insulin Detemir (Levemir) 10 units BEDTIME SUBQ 07/22/17 21:00 08/21/17 20:59 07/22/17 20:49 Lorazepam (Ativan 2mg/ml 1ml) 0.5 mg Q4H PRN IV For Anxiety 07/22/17 15:30 07/29/17 15:29 Methylprednisolone Sodium Succinate (Solu-MEDROL) 60 mg EVERY 6 HOURS IV 07/22/17 19:30 08/21/17 19:29 07/23/17 12:32 Morphine Sulfate (Morphine Sulfate) 2 mg Q4H PRN IVP severe pain 7-10 07/22/17 15:30 07/29/17 15:29 07/23/17 13:49 Nitroglycerin (Ntg) 0.4 mg Q5M X 3 DOSES PRN SL Prn Chest Pain 07/22/17 15:30 08/21/17 15:29 Ondansetron HCl (Zofran) 4 mg Q6H PRN IVP Nausea & Vomiting 07/22/17 15:30 08/21/17 15:29 Pregabalin (Lyrica) 75 mg THREE TIMES A DAY ORAL 07/22/17 19:30 08/21/17 19:29 07/23/17 12:32 Promethazine HCl/ Codeine (Phenergan with Codeine) 5 ml Q6H PRN ORAL cough 07/22/17 15:30 08/21/17 15:29 Temazepam (Restoril) 15 mg HSPRN PRN ORAL Insomnia 07/22/17 21:00 07/29/17 20:59 07/22/17 22:57 Theophylline (Bobby-Dur) 100 mg EVERY 12 HOURS ORAL 07/22/17 21:00 08/21/17 20:59 07/23/17 08:27 Ziprasidone (Geodon) 20 mg DAILY ORAL 07/23/17 09:00 08/22/17 08:59 07/23/17 08:29 Assessment/Plan Problem List: (1) COPD exacerbation ICD Codes: J44.1 - Chronic obstructive pulmonary disease with (acute) exacerbation SNOMED: 244025176, 006717788 (2) Lumbar back pain ICD Codes: M54.5 - Lumbar back pain SNOMED: 359823559 (3) Anxiety ICD Codes: F41.9 - Anxiety disorder, unspecified; Z68.41 - Body mass index (BMI ) 40.0-44.9, adult SNOMED: 10544377 (4) Diabetes mellitus ICD Codes: E11.9 - Diabetes mellitus SNOMED: 87705894 Assessment/Plan Iv steroids IV abx check sputum sliding scale insulin coverage. QUINN SMITH Jul 23, 2017 16:18
--- NOTE | 2017-07-23 16:21 | Pulmonology Progress Note ---
Assessment/Plan Problems: (1) COPD exacerbation (2) Lumbar back pain (3) Anxiety (4) Diabetes mellitus Assessment/Plan taper steroids IV abx check sputum sliding scale Subjective ROS Limited/Unobtainable: No Interval Events: not much change, still coughing Allergies: Coded Allergies: No Known Allergies (Unverified , 02/06/15) Objective Last 24 Hour Vital Signs Date Time Temp Pulse Resp B/P (MAP) Pulse Ox O2 Delivery O2 Flow Rate FiO2 07/23/17 14:57 100 16 99 Nasal Cannula 3.0 32 07/23/17 14:47 100 18 99 Nasal Cannula 2.0 07/23/17 14:19 97.9 07/23/17 13:31 97.9 07/23/17 12:00 97.9 124 19 107/63 94 Nasal Cannula 4.0 07/23/17 11:10 103 16 98 Nasal Cannula 2.0 07/23/17 11:00 103 18 99 Nasal Cannula 2.0 07/23/17 08:00 98.1 90 18 116/51 96 Nasal Cannula 07/23/17 07:38 105 16 98 Nasal Cannula 2.0 07/23/17 07:25 99 Nasal Cannula 2.0 07/23/17 07:25 105 20 Room Air 07/23/17 07:25 Nasal Cannula 2.0 07/23/17 07:25 105 20 99 Nasal Cannula 2.0 07/23/17 04:00 97.7 112 19 116/60 95 Room Air 07/23/17 03:05 109 16 98 Nasal Cannula 2.0 07/23/17 02:56 112 18 95 Nasal Cannula 2.0 07/23/17 00:00 97.9 101 18 126/68 95 Nasal Cannula 2.0 07/22/17 23:08 109 18 99 Nasal Cannula 2.0 07/22/17 23:01 109 18 97 Nasal Cannula 2.0 07/22/17 20:50 105 18 97 Nasal Cannula 2.0 07/22/17 20:49 102 20 Nasal Cannula 2.0 07/22/17 20:49 Nasal Cannula 2.0 07/22/17 20:49 94 Nasal Cannula 2.0 07/22/17 20:40 102 20 94 Nasal Cannula 2.0 07/22/17 20:06 98.1 102 20 131/79 93 Room Air 07/22/17 18:58 98.2 106 18 129/79 95 07/22/17 17:48 97.3 97 19 127/67 98 Room Air General Appearance: WD/WN HEENT: normocephalic, atraumatic Respiratory/Chest: chest wall non-tender, lungs clear Cardiovascular: normal peripheral pulses, normal rate Abdomen: normal bowel sounds, soft, non tender Genitourinary: normal external genitalia Extremities: no cyanosis Laboratory Tests 07/22/17 16:45: Urine Color Pale yellow, Urine Appearance Clear, Urine pH 7, Urine Specific [place] 1.010, Urine Protein Negative, Urine Glucose (UA) Negative, Urine Ketones 1+H, Urine Occult Blood Negative, Urine Nitrite Negative, Urine Bilirubin Negative, Urine Urobilinogen Normal, Urine Leukocyte Esterase 1+H, Urine RBC 0-2H, Urine WBC 0-2, Urine Squamous Epithelial Cells None, Urine Bacteria None 07/23/17 05:10: White Blood Count 11.8H, Red Blood Count 4.31L, Hemoglobin 13.0L, Hematocrit 37.9L, Mean Corpuscular Volume 88, Mean Corpuscular Hemoglobin 30.2, Mean Corpuscular Hemoglobin Concent 34.3, Red Cell Distribution Width 12.6, Platelet Count 232, Mean Platelet Volume 7.7, Neutrophils (%) (Auto) , Lymphocytes (%) ( Auto) , Monocytes (%) (Auto) , Eosinophils (%) (Auto) , Basophils (%) (Auto) , Differential Total Cells Counted 100, Neutrophils % (Manual) 78H, Lymphocytes % (Manual) 16L, Monocytes % (Manual) 0L, Eosinophils % (Manual) 0, Basophils % ( Manual) 0, Band Neutrophils 6, Platelet Estimate Adequate, Platelet Morphology Normal, Sodium Level 136, Potassium Level 4.2, Chloride Level 96L, Carbon Dioxide Level 23, Anion Gap 17H, Blood Urea Nitrogen 15, Creatinine 0.8, Estimat Glomerular Filtration Rate > 60, Glucose Level 335#H, Calcium Level 9.1 , Total Bilirubin 0.3, Aspartate Amino Transf (AST/SGOT) 14, Alanine Aminotransferase (ALT/SGPT) 22, Alkaline Phosphatase 64, Total Protein 6.5L, Albumin 3.9, Globulin 2.6, Albumin/Globulin Ratio 1.5 Current Medications Medications (Trade) Dose Ordered Sig/Sofia Route PRN Reason Start Time Stop Time Status Last Admin Dose Admin Acetaminophen (Tylenol) 650 mg Q4H PRN ORAL FEVER>100.5 07/22/17 15:30 08/21/17 15:29 Albuterol/ Ipratropium (DuoNeb 0.5-3(2.5)mg/3ml) 3 ml Q4HRT HHN 07/22/17 23:00 07/27/17 22:59 07/23/17 14:47 Clonidine HCl (Catapres) 0.1 mg Q4H PRN ORAL sbp more than 160 07/22/17 15:30 08/21/17 15:29 Dextrose (Dextrose 50%) STAT PRN IV Hypoglycemia 07/22/17 18:30 08/21/17 18:29 Doxycycline Monohydrate (Vibramycin) 100 mg EVERY 12 HOURS ORAL 07/23/17 15:00 07/30/17 14:59 07/23/17 15:08 Heparin Sodium (Porcine) (Heparin 5000 units/ml) 5,000 units EVERY 12 HOURS SUBQ 07/22/17 21:00 08/21/17 20:59 07/23/17 08:34 Insulin Aspart (NovoLOG) BEFORE MEALS AND HS SUBQ 07/22/17 21:00 08/21/17 20:59 07/23/17 11:39 Insulin Aspart (NovoLOG) 8 units NOVOTIAC SUBQ 07/23/17 06:30 08/22/17 06:29 07/23/17 11:38 Insulin Detemir (Levemir) 10 units BEDTIME SUBQ 07/22/17 21:00 08/21/17 20:59 07/22/17 20:49 Lorazepam (Ativan 2mg/ml 1ml) 0.5 mg Q4H PRN IV For Anxiety 07/22/17 15:30 07/29/17 15:29 Methylprednisolone Sodium Succinate (Solu-MEDROL) 60 mg EVERY 6 HOURS IV 07/22/17 19:30 08/21/17 19:29 07/23/17 12:32 Morphine Sulfate (Morphine Sulfate) 2 mg Q4H PRN IVP severe pain 7-10 07/22/17 15:30 07/29/17 15:29 07/23/17 13:49 Nitroglycerin (Ntg) 0.4 mg Q5M X 3 DOSES PRN SL Prn Chest Pain 07/22/17 15:30 08/21/17 15:29 Ondansetron HCl (Zofran) 4 mg Q6H PRN IVP Nausea & Vomiting 07/22/17 15:30 08/21/17 15:29 Pregabalin (Lyrica) 75 mg THREE TIMES A DAY ORAL 07/22/17 19:30 08/21/17 19:29 07/23/17 12:32 Promethazine HCl/ Codeine (Phenergan with Codeine) 5 ml Q6H PRN ORAL cough 07/22/17 15:30 08/21/17 15:29 Temazepam (Restoril) 15 mg HSPRN PRN ORAL Insomnia 07/22/17 21:00 07/29/17 20:59 07/22/17 22:57 Theophylline (Bobby-Dur) 100 mg EVERY 12 HOURS ORAL 07/22/17 21:00 08/21/17 20:59 07/23/17 08:27 Ziprasidone (Geodon) 20 mg DAILY ORAL 07/23/17 09:00 08/22/17 08:59 07/23/17 08:29 QUINN SMITH Jul 23, 2017 16:21
--- NOTE | 2017-07-23 18:51 | General Progress Note ---
Assessment/Plan Problem List: (1) Hyperglycemia due to type 2 diabetes mellitus ICD Codes: E11.65 - Type 2 diabetes mellitus with hyperglycemia SNOMED: 371719036920351 (2) COPD exacerbation ICD Codes: J44.1 - Chronic obstructive pulmonary disease with (acute) exacerbation SNOMED: 063720333, [id number] Assessment/Plan increase Levemir to 24 units qhs increase Novolog to 18 units ac tid continue sliding scale ac / hs add Metformin Subjective Allergies: Coded Allergies: No Known Allergies (Unverified , 02/06/15) All Systems: reviewed and negative except above Subjective admitted with bronchospasm started on treatment with steroid which exacerbated his diabetes Objective Last 24 Hour Vital Signs Date Time Temp Pulse Resp B/P (MAP) Pulse Ox O2 Delivery O2 Flow Rate FiO2 07/23/17 18:16 97.9 07/23/17 16:00 97.9 116 17 127/63 94 Nasal Cannula 4.0 07/23/17 14:57 100 16 99 Nasal Cannula 3.0 07/23/17 14:47 100 18 99 Nasal Cannula 2.0 07/23/17 13:31 97.9 07/23/17 12:00 97.9 124 19 107/63 94 Nasal Cannula 4.0 07/23/17 11:10 103 16 98 Nasal Cannula 2.0 07/23/17 11:00 103 18 99 Nasal Cannula 2.0 07/23/17 08:00 98.1 90 18 116/51 96 Nasal Cannula 07/23/17 07:38 105 16 98 Nasal Cannula 2.0 07/23/17 07:25 99 Nasal Cannula 2.0 07/23/17 07:25 105 20 Room Air 07/23/17 07:25 Nasal Cannula 2.0 07/23/17 07:25 105 20 99 Nasal Cannula 2.0 07/23/17 04:00 97.7 112 19 116/60 95 Room Air 07/23/17 03:05 109 16 98 Nasal Cannula 2.0 07/23/17 02:56 112 18 95 Nasal Cannula 2.0 07/23/17 00:00 97.9 101 18 126/68 95 Nasal Cannula 2.0 07/22/17 23:08 109 18 99 Nasal Cannula 2.0 07/22/17 23:01 109 18 97 Nasal Cannula 2.0 07/22/17 20:50 105 18 97 Nasal Cannula 2.0 07/22/17 20:49 102 20 Nasal Cannula 2.0 07/22/17 20:49 Nasal Cannula 2.0 07/22/17 20:49 94 Nasal Cannula 2.0 07/22/17 20:40 102 20 94 Nasal Cannula 2.0 07/22/17 20:06 98.1 102 20 131/79 93 Room Air 07/22/17 18:58 98.2 106 18 129/79 95 Laboratory Tests 07/23/17 05:10: White Blood Count 11.8H, Red Blood Count 4.31L, Hemoglobin 13.0L, Hematocrit 37.9L, Mean Corpuscular Volume 88, Mean Corpuscular Hemoglobin 30.2, Mean Corpuscular Hemoglobin Concent 34.3, Red Cell Distribution Width 12.6, Platelet Count 232, Mean Platelet Volume 7.7, Neutrophils (%) (Auto) , Lymphocytes (%) ( Auto) , Monocytes (%) (Auto) , Eosinophils (%) (Auto) , Basophils (%) (Auto) , Differential Total Cells Counted 100, Neutrophils % (Manual) 78H, Lymphocytes % (Manual) 16L, Monocytes % (Manual) 0L, Eosinophils % (Manual) 0, Basophils % ( Manual) 0, Band Neutrophils 6, Platelet Estimate Adequate, Platelet Morphology Normal, Sodium Level 136, Potassium Level 4.2, Chloride Level 96L, Carbon Dioxide Level 23, Anion Gap 17H, Blood Urea Nitrogen 15, Creatinine 0.8, Estimat Glomerular Filtration Rate > 60, Glucose Level 335#H, Calcium Level 9.1 , Total Bilirubin 0.3, Aspartate Amino Transf (AST/SGOT) 14, Alanine Aminotransferase (ALT/SGPT) 22, Alkaline Phosphatase 64, Total Protein 6.5L, Albumin 3.9, Globulin 2.6, Albumin/Globulin Ratio 1.5 Height (Feet): 5 Height (Inches): 11.00 Weight (Pounds): 232 General Appearance: no apparent distress Neck: normal alignment Cardiovascular: normal peripheral pulses Respiratory/Chest: crackles/rales Abdomen: normal bowel sounds Pelvis: normal external exam Edema: no edema noted Arm (L), no edema noted Arm (R), no edema noted Leg (L), no edema noted Leg (R), no edema noted Pedal (L), no edema noted Pedal (R), no edema noted Generalized Objective Current Medications Medications (Trade) Dose Ordered Sig/Sofia Route PRN Reason Start Time Stop Time Status Last Admin Dose Admin Acetaminophen (Tylenol) 650 mg Q4H PRN ORAL FEVER>100.5 07/22/17 15:30 08/21/17 15:29 Albuterol/ Ipratropium (DuoNeb 0.5-3(2.5)mg/3ml) 3 ml Q4HRT HHN 07/22/17 23:00 07/27/17 22:59 07/23/17 14:47 Clonidine HCl (Catapres) 0.1 mg Q4H PRN ORAL sbp more than 160 07/22/17 15:30 08/21/17 15:29 Dextrose (Dextrose 50%) STAT PRN IV Hypoglycemia 07/22/17 18:30 08/21/17 18:29 Doxycycline Monohydrate (Vibramycin) 100 mg EVERY 12 HOURS ORAL 07/23/17 15:00 07/30/17 14:59 07/23/17 15:08 Heparin Sodium (Porcine) (Heparin 5000 units/ml) 5,000 units EVERY 12 HOURS SUBQ 07/22/17 21:00 08/21/17 20:59 07/23/17 08:34 Insulin Aspart (NovoLOG) BEFORE MEALS AND HS SUBQ 07/22/17 21:00 08/21/17 20:59 07/23/17 17:06 Insulin Aspart (NovoLOG) 8 units NOVOTIAC SUBQ 07/23/17 06:30 08/22/17 06:29 07/23/17 17:06 Insulin Detemir (Levemir) 10 units BEDTIME SUBQ 07/22/17 21:00 08/21/17 20:59 07/22/17 20:49 Lorazepam (Ativan 2mg/ml 1ml) 0.5 mg Q4H PRN IV For Anxiety 07/22/17 15:30 07/29/17 15:29 Methylprednisolone Sodium Succinate (Solu-MEDROL) 40 mg EVERY 8 HOURS IV 07/23/17 22:00 08/21/17 19:29 Morphine Sulfate (Morphine Sulfate) 2 mg Q4H PRN IVP severe pain 7-10 07/22/17 15:30 07/29/17 15:29 07/23/17 17:46 Nitroglycerin (Ntg) 0.4 mg Q5M X 3 DOSES PRN SL Prn Chest Pain 07/22/17 15:30 08/21/17 15:29 Ondansetron HCl (Zofran) 4 mg Q6H PRN IVP Nausea & Vomiting 07/22/17 15:30 08/21/17 15:29 Pregabalin (Lyrica) 75 mg THREE TIMES A DAY ORAL 07/22/17 19:30 08/21/17 19:29 07/23/17 18:21 Promethazine HCl/ Codeine (Phenergan with Codeine) 5 ml Q6H PRN ORAL cough 07/22/17 15:30 08/21/17 15:29 Temazepam (Restoril) 15 mg HSPRN PRN ORAL Insomnia 07/22/17 21:00 07/29/17 20:59 07/22/17 22:57 Theophylline (Bobby-Dur) 100 mg EVERY 12 HOURS ORAL 07/22/17 21:00 08/21/17 20:59 07/23/17 08:27 Ziprasidone (Geodon) 20 mg DAILY ORAL 07/23/17 09:00 08/22/17 08:59 07/23/17 08:29 Item Value Date Time Bedside Blood Glucose 413 mg/dl H 07/23/17 1706 Bedside Blood Glucose 332 mg/dl H 07/23/17 1139 Bedside Blood Glucose 307 mg/dl H 07/23/17 0616 ORALIA VALENCIA Jul 23, 2017 18:51
[2017-07-23 20:00] VITALS: BP 123/65
[2017-07-23] MEDS ORDERED: Levemir Flexpen SUBQ SCH (21:00)
[2017-07-24] VITALS: BP 136/74
--- NOTE | 2017-07-24 00:30 | Consultation ---
DATE OF CONSULTATION: 07/23/2017 NOTE: "INCOMPLETE DICTATION" INFECTIOUS DISEASE CONSULTATION CONSULTING PHYSICIAN: Teresita Sewell M.D. REQUESTING PHYSICIAN: Aniceto Sepulveda D.O. Reason For Consultation: Bronchitis, recommendation for antibiotics treatment. History Of Present Illness: The patient is a 36-year-old male, who is a chronic smoker, was sent from [facility] for cough productive with shortness of breath and wheezing. The patient has been smoker since age of 9 and he continued to smoke up to the date of admission. He denies any fever or chills, but his cough was productive of yellowish phlegm. The patient was found to have hyperglycemia on admission, so he was admitted to the hospital for antibiotics treatment and further management and I was consulted by the primary provider for further evaluation and medication treatment of his acute bronchitis. PAST MEDICAL HISTORY: Significant for diabetes and hypertension. PAST SURGICAL HISTORY: Negative. SOCIAL HISTORY: The patient is a chronic smoker since the age of 9. FAMILY HISTORY: Noncontributory. Teresita Sewell M.D. DR: RADHA JOB#: [id number] CC:
[2017-07-24] MEDS: Morphine Sulfate 2mg/ml Inj IVP PRN ×6 (01:41→22:10)
[2017-07-24] MEDS: Albuterol/Ipratropium 3ml neb HHN SCH ×6 (03:30→23:28)
[2017-07-24 04:00] VITALS: BP 102/56
[2017-07-24] MEDS: Solu-MEDROL 125mg Inj IV SCH ×3 (05:58→21:25)
[2017-07-24] MEDS: metFORMIN 500mg tab ORAL SCH ×3 (05:58→17:22)
[2017-07-24] MEDS: NovoLOG Insulin Flexpen SUBQ SCH ×7 (06:17→21:28)
[2017-07-24 07:27] LABS: MEAN CORPUSCULAR HEMOGLOBIN 30.3 PG (27.0-31.0); MEAN CORPUSCULAR HGB CONC 34.2 G/DL (32.0-36.0); MEAN CORPUSCULAR VOLUME 89 FL (80-99); MEAN PLATELET VOLUME 7.6 FL (6.5-10.1); PLATELET COUNT 245 K/UL (150-450); RED BLOOD COUNT 4.11 M/UL (4.70-6.10); RED CELL DISTRIBUTION WIDTH 12.8 % (11.6-14.8); WHITE BLOOD COUNT 18.1 K/UL (4.8-10.8)
[2017-07-24 07:31] LABS: ANION GAP 12 (5-15); CALCIUM 9.3 mg/dL (8.6-10.2); CARBON DIOXIDE 24 mEQ/L (20-30); CHLORIDE 96 mEQ/L (98-107); CREATININE 0.8 mg/dL (0.7-1.2); GLOMERULAR FILTRATION RATE > 60 mL/min (>60); HEMOLYSIS 1; POTASSIUM 4.8 mEQ/L (3.4-4.9); SODIUM 132 mEQ/L (135-145)
[2017-07-24 08:00] VITALS: BP 120/76
[2017-07-24] MEDS: Theophylline ER 100mg ORAL SCH ×2 (08:46→21:32)
[2017-07-24] MEDS: Lyrica 75mg cap ORAL SCH ×3 (08:47→18:07)
[2017-07-24 08:55] LABS: BAND NEUTROPHILS % (MANUAL) 3 % (0-8); BASOPHILS % (MANUAL) 0 % (0-2); EOSINOPHILS % (MANUAL) 0 % (0-3); LYMPHOCYTES % (MANUAL) 9 % (20-45); NEUTROPHILS % (MANUAL) 83 % (45-75); PLATELET ESTIMATE ADEQUATE; PLATELET MORPHOLOGY NORMAL; TOTAL CELLS COUNTED 100
[2017-07-24] MEDS: Heparin 5000 units/ml inj SUBQ SCH ×2 (08:58→21:00)
[2017-07-24] MEDS: Ziprasidone 20mg cap ORAL SCH (09:14)
--- NOTE | 2017-07-24 11:54 | General Progress Note ---
Assessment/Plan Assessment/Plan (1) Chiari malformation type II (2) Degenerative disc disease, cervical (3) Lumbar degenerative disc disease (4) Arthritis, lumbar spine (5) Peripheral neuropathy (6) Hydrocephalus (7) Diabetes mellitus Pt will be continued on Morphine as needed. Pt was d/w Dr. Napier and he concurred. Subjective Date patient seen: Jul 24, 2017 Time patient seen: 11:00 - am Allergies: Coded Allergies: No Known Allergies (Unverified , 02/06/15) Subjective Constitutional: Reports: weakness, Denies: chills, diaphoresis, fever, malaise , no symptoms, other HEENT: Denies: blurred vision, double vision, ear discharge, ear pain, eye pain , mouth pain, mouth swelling, no symptoms, nose congestion, nose pain, other, tearing, throat pain, throat swelling Cardiovascular: Denies: chest pain, edema, irregular heart rate, lightheadedness, no symptoms, other, palpitations, syncope Respiratory: Denies: SOB at rest, SOB with excertion, cough, no symptoms, orthopnea, other, shortness of breath, sputum, stridor, wheezing Gastrointestinal/Abdominal: Denies: abdomen distended, abdominal pain, black stools, blood in stool, constipated, diarrhea, difficulty swallowing, nausea, no symptoms, other, poor appetite, poor fluid intake, rectal bleeding, tarry stools, vomiting Genitourinary: Denies: burning, discharge, flank pain, frequency, hematuria, incontinence, no symptoms, other, pain, urgency Neurologic/Psychiatric: Reports: headache, numbness, tingling, weakness, Denies : anxiety, depressed, emotional problems, no symptoms, other, paresthesia, pre- existing deficit, seizure, tremors Endocrine: Denies: excessive sweating, flushing, increased hunger, increased thirst, increased urine, intolerance to cold, intolerance to heat, no symptoms, other, unexplained weight gain, unexplained weight loss Hematologic/Lymphatic: Denies: anemia, easy bleeding, easy bruising, no symptoms, other Subjective Pt is in bed no signs of pain or distress at this time the pain is tolerated on the Morphine rating it a 5/10. Objective Last 24 Hour Vital Signs Date Time Temp Pulse Resp B/P (MAP) Pulse Ox O2 Delivery O2 Flow Rate FiO2 07/24/17 11:06 116 18 93 Nasal Cannula 3.0 32 07/24/17 11:06 115 20 97 Nasal Cannula 3.0 32 07/24/17 08:03 115 20 98 Nasal Cannula 3.0 32 07/24/17 08:00 97.0 113 20 120/76 97 Nasal Cannula 7.0 07/24/17 07:58 110 20 93 Nasal Cannula 3.0 32 07/24/17 07:58 Nasal Cannula 3.0 32 07/24/17 07:58 93 Nasal Cannula 3.0 32 07/24/17 06:28 97.9 07/24/17 04:00 97.9 123 21 102/56 96 Nasal Cannula 2.0 07/24/17 03:38 110 20 98 Nasal Cannula 3.0 32 07/24/17 03:29 109 20 94 Nasal Cannula 3.0 32 07/24/17 00:00 98.1 106 19 136/74 93 Nasal Cannula 2.0 07/23/17 23:24 116 20 99 Nasal Cannula 3.0 32 07/23/17 23:15 112 20 95 Nasal Cannula 3.0 32 07/23/17 20:00 98.4 123 19 123/65 93 Nasal Cannula 2.0 07/23/17 19:27 114 20 98 Nasal Cannula 3.0 32 07/23/17 19:17 94 Nasal Cannula 3.0 32 07/23/17 19:17 110 18 94 Nasal Cannula 3.0 32 07/23/17 19:17 Nasal Cannula 3.0 32 07/23/17 16:00 97.9 116 17 127/63 94 Nasal Cannula 4.0 07/23/17 14:57 100 16 99 Nasal Cannula 3.0 32 07/23/17 14:47 100 18 99 Nasal Cannula 2.0 28 07/23/17 13:31 97.9 07/23/17 12:00 97.9 124 19 107/63 94 Nasal Cannula 4.0 Intake and Output 07/24/17 07/25/17 19:00 07:00 Intake Total 240 ml Output Total 500 ml Balance -260 ml Intake Oral 240 ml Output Urine Total 500 ml # Bowel Movements 1 Laboratory Tests 07/24/17 05:15: White Blood Count 18.1#H, Red Blood Count 4.11L, Hemoglobin 12.5L, Hematocrit 36.5L, Mean Corpuscular Volume 89, Mean Corpuscular Hemoglobin 30.3, Mean Corpuscular Hemoglobin Concent 34.2, Red Cell Distribution Width 12.8, Platelet Count 245, Mean Platelet Volume 7.6, Neutrophils (%) (Auto) , Lymphocytes (%) ( Auto) , Monocytes (%) (Auto) , Eosinophils (%) (Auto) , Basophils (%) (Auto) , Differential Total Cells Counted 100, Neutrophils % (Manual) 83H, Lymphocytes % (Manual) 9L, Monocytes % (Manual) 5, Eosinophils % (Manual) 0, Basophils % ( Manual) 0, Band Neutrophils 3, Platelet Estimate Adequate, Platelet Morphology Normal, Sodium Level 132L, Potassium Level 4.8, Chloride Level 96L, Carbon Dioxide Level 24, Anion Gap 12, Blood Urea Nitrogen 21, Creatinine 0.8, Estimat Glomerular Filtration Rate > 60, Glucose Level 475#H, Calcium Level 9.3 Height (Feet): 5 Height (Inches): 11.00 Weight (Pounds): 232 Objective General Appearance: no apparent distress, alert EENT: normal ENT inspection, TMs normal Neck: supple, limited range of motion, muscle spasm Cardiovascular: normal rate, regular rhythm Respiratory/Chest: decreased breath sounds Abdomen: non tender, soft Extremities: non-tender Edema: no edema noted Arm (L), no edema noted Arm (R), no edema noted Leg (L), no edema noted Leg (R), no edema noted Pedal (L), no edema noted Pedal (R), no edema noted Generalized Neurologic: alert, oriented x 3 Skin: warm/dry TREE SINGLETON Jul 24, 2017 11:54
[2017-07-24 12:00] VITALS: BP 122/53
--- NOTE | 2017-07-24 15:08 | General Progress Note ---
Assessment/Plan Problem List: (1) Diabetes mellitus ICD Codes: E11.9 - Diabetes mellitus SNOMED: 09648080 (2) Generalized weakness ICD Codes: R53.1 - Weakness SNOMED: 88950202 (3) COPD exacerbation ICD Codes: J44.1 - Chronic obstructive pulmonary disease with (acute) exacerbation SNOMED: 087726548, 592628106 (4) Hyperglycemia due to type 2 diabetes mellitus ICD Codes: E11.65 - Type 2 diabetes mellitus with hyperglycemia SNOMED: 363996959594401 (5) Opiate dependence ICD Codes: F11.20 - Opioid dependence SNOMED: 83055082 (6) Anxiety ICD Codes: F41.9 - Anxiety disorder, unspecified; Z68.41 - Body mass index (BMI ) 40.0-44.9, adult SNOMED: 29243569 Status: stable, progressing, tolerating diet Assessment/Plan o2 pulm tx abx ot pt diet cbc bmp am Subjective Constitutional: Reports: weakness Allergies: Coded Allergies: No Known Allergies (Unverified , 02/06/15) All Systems: reviewed and negative except above Subjective o2 nc sleepy Objective Last 24 Hour Vital Signs Date Time Temp Pulse Resp B/P (MAP) Pulse Ox O2 Delivery O2 Flow Rate FiO2 07/24/17 12:00 98.1 115 21 122/53 93 Nasal Cannula 7.0 07/24/17 11:06 116 18 93 Nasal Cannula 3.0 32 07/24/17 11:06 115 20 97 Nasal Cannula 3.0 32 07/24/17 08:03 115 20 98 Nasal Cannula 3.0 32 07/24/17 08:00 97.0 113 20 120/76 97 Nasal Cannula 7.0 07/24/17 07:58 110 20 93 Nasal Cannula 3.0 32 07/24/17 07:58 Nasal Cannula 3.0 32 07/24/17 07:58 93 Nasal Cannula 3.0 32 07/24/17 06:28 97.9 07/24/17 04:00 97.9 123 21 102/56 96 Nasal Cannula 2.0 07/24/17 03:38 110 20 98 Nasal Cannula 3.0 32 07/24/17 03:29 109 20 94 Nasal Cannula 3.0 32 07/24/17 00:00 98.1 106 19 136/74 93 Nasal Cannula 2.0 07/23/17 23:24 116 20 99 Nasal Cannula 3.0 32 07/23/17 23:15 112 20 95 Nasal Cannula 3.0 32 07/23/17 20:00 98.4 123 19 123/65 93 Nasal Cannula 2.0 07/23/17 19:27 114 20 98 Nasal Cannula 3.0 32 07/23/17 19:17 94 Nasal Cannula 3.0 32 07/23/17 19:17 110 18 94 Nasal Cannula 3.0 32 07/23/17 19:17 Nasal Cannula 3.0 32 07/23/17 16:00 97.9 116 17 127/63 94 Nasal Cannula 4.0 Intake and Output 07/24/17 07/25/17 19:00 07:00 Intake Total 240 ml Output Total 500 ml Balance -260 ml Intake Oral 240 ml Output Urine Total 500 ml # Bowel Movements 1 Laboratory Tests 07/24/17 05:15: White Blood Count 18.1#H, Red Blood Count 4.11L, Hemoglobin 12.5L, Hematocrit 36.5L, Mean Corpuscular Volume 89, Mean Corpuscular Hemoglobin 30.3, Mean Corpuscular Hemoglobin Concent 34.2, Red Cell Distribution Width 12.8, Platelet Count 245, Mean Platelet Volume 7.6, Neutrophils (%) (Auto) , Lymphocytes (%) ( Auto) , Monocytes (%) (Auto) , Eosinophils (%) (Auto) , Basophils (%) (Auto) , Differential Total Cells Counted 100, Neutrophils % (Manual) 83H, Lymphocytes % (Manual) 9L, Monocytes % (Manual) 5, Eosinophils % (Manual) 0, Basophils % ( Manual) 0, Band Neutrophils 3, Platelet Estimate Adequate, Platelet Morphology Normal, Sodium Level 132L, Potassium Level 4.8, Chloride Level 96L, Carbon Dioxide Level 24, Anion Gap 12, Blood Urea Nitrogen 21, Creatinine 0.8, Estimat Glomerular Filtration Rate > 60, Glucose Level 475#H, Calcium Level 9.3 Height (Feet): 5 Height (Inches): 11.00 Weight (Pounds): 232 General Appearance: lethargic EENT: normal ENT inspection Neck: normal alignment Cardiovascular: normal peripheral pulses, normal rate, regular rhythm Respiratory/Chest: chest wall non-tender, lungs clear, normal breath sounds Abdomen: normal bowel sounds, non tender, soft Extremities: normal inspection Edema: no edema noted Arm (L), no edema noted Arm (R), no edema noted Leg (L), no edema noted Leg (R), no edema noted Pedal (L), no edema noted Pedal (R), no edema noted Generalized INDU KEEN Jul 24, 2017 15:08
--- NOTE | 2017-07-24 15:35 | Pulmonology Progress Note ---
Assessment/Plan Problems: (1) COPD exacerbation (2) Lumbar back pain (3) Anxiety (4) Diabetes mellitus Assessment/Plan taper steroids IV abx check sputum sliding scale improving slowly Subjective ROS Limited/Unobtainable: No Constitutional: Reports: no symptoms HEENT: Repors: no symptoms Respiratory: Reports: no symptoms Allergies: Coded Allergies: No Known Allergies (Unverified , 02/06/15) Objective Last 24 Hour Vital Signs Date Time Temp Pulse Resp B/P (MAP) Pulse Ox O2 Delivery O2 Flow Rate FiO2 07/24/17 15:13 120 20 94 Nasal Cannula 3.0 32 07/24/17 15:00 115 20 98 Nasal Cannula 3.0 32 07/24/17 12:00 98.1 115 21 122/53 93 Nasal Cannula 7.0 07/24/17 11:06 116 18 93 Nasal Cannula 3.0 32 07/24/17 11:06 115 20 97 Nasal Cannula 3.0 32 07/24/17 08:03 115 20 98 Nasal Cannula 3.0 32 07/24/17 08:00 97.0 113 20 120/76 97 Nasal Cannula 7.0 07/24/17 07:58 110 20 93 Nasal Cannula 3.0 32 07/24/17 07:58 Nasal Cannula 3.0 32 07/24/17 07:58 93 Nasal Cannula 3.0 32 07/24/17 06:28 97.9 07/24/17 04:00 97.9 123 21 102/56 96 Nasal Cannula 2.0 07/24/17 03:38 110 20 98 Nasal Cannula 3.0 32 07/24/17 03:29 109 20 94 Nasal Cannula 3.0 32 07/24/17 00:00 98.1 106 19 136/74 93 Nasal Cannula 2.0 07/23/17 23:24 116 20 99 Nasal Cannula 3.0 32 07/23/17 23:15 112 20 95 Nasal Cannula 3.0 32 07/23/17 20:00 98.4 123 19 123/65 93 Nasal Cannula 2.0 07/23/17 19:27 114 20 98 Nasal Cannula 3.0 32 07/23/17 19:17 94 Nasal Cannula 3.0 32 07/23/17 19:17 110 18 94 Nasal Cannula 3.0 32 07/23/17 19:17 Nasal Cannula 3.0 32 07/23/17 16:00 97.9 116 17 127/63 94 Nasal Cannula 4.0 Intake and Output 07/24/17 07/25/17 19:00 07:00 Intake Total 240 ml Output Total 500 ml Balance -260 ml Intake Oral 240 ml Output Urine Total 500 ml # Bowel Movements 1 General Appearance: WD/WN HEENT: normocephalic, atraumatic Respiratory/Chest: chest wall non-tender, lungs clear Cardiovascular: normal peripheral pulses, normal rate Abdomen: soft, non tender Extremities: no cyanosis Skin: no rash Neurologic/Psychiatric: 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 Complete Laboratory Tests 07/24/17 05:15: White Blood Count 18.1#H, Red Blood Count 4.11L, Hemoglobin 12.5L, Hematocrit 36.5L, Mean Corpuscular Volume 89, Mean Corpuscular Hemoglobin 30.3, Mean Corpuscular Hemoglobin Concent 34.2, Red Cell Distribution Width 12.8, Platelet Count 245, Mean Platelet Volume 7.6, Neutrophils (%) (Auto) , Lymphocytes (%) ( Auto) , Monocytes (%) (Auto) , Eosinophils (%) (Auto) , Basophils (%) (Auto) , Differential Total Cells Counted 100, Neutrophils % (Manual) 83H, Lymphocytes % (Manual) 9L, Monocytes % (Manual) 5, Eosinophils % (Manual) 0, Basophils % ( Manual) 0, Band Neutrophils 3, Platelet Estimate Adequate, Platelet Morphology Normal, Sodium Level 132L, Potassium Level 4.8, Chloride Level 96L, Carbon Dioxide Level 24, Anion Gap 12, Blood Urea Nitrogen 21, Creatinine 0.8, Estimat Glomerular Filtration Rate > 60, Glucose Level 475#H, Calcium Level 9.3 Current Medications Medications (Trade) Dose Ordered Sig/Sofia Route PRN Reason Start Time Stop Time Status Last Admin Dose Admin Acetaminophen (Tylenol) 650 mg Q4H PRN ORAL FEVER>100.5 9/27/17 15:30 08/21/17 15:29 Albuterol/ Ipratropium (DuoNeb 0.5-3(2.5)mg/3ml) 3 ml Q4HRT HHN 07/22/17 23:00 07/27/17 22:59 07/24/17 15:11 Clonidine HCl (Catapres) 0.1 mg Q4H PRN ORAL sbp more than 160 07/22/17 15:30 08/21/17 15:29 Dextrose (Dextrose 50%) STAT PRN IV Hypoglycemia 07/22/17 18:30 08/21/17 18:29 Divalproex Sodium (Depakote ER) 500 mg EVERY 12 HOURS ORAL 07/24/17 21:00 08/23/17 20:59 Doxycycline Monohydrate (Vibramycin) 100 mg EVERY 12 HOURS ORAL 07/23/17 15:00 07/30/17 14:59 07/24/17 08:46 Heparin Sodium (Porcine) (Heparin 5000 units/ml) 5,000 units EVERY 12 HOURS SUBQ 07/22/17 21:00 08/21/17 20:59 07/23/17 08:34 Insulin Aspart (NovoLOG) BEFORE MEALS AND HS SUBQ 07/22/17 21:00 08/21/17 20:59 07/24/17 12:02 Insulin Aspart (NovoLOG) 18 units NOVOTIAC SUBQ 07/24/17 06:30 08/23/17 06:29 07/24/17 12:01 Insulin Detemir (Levemir) 24 units BEDTIME SUBQ 07/23/17 21:00 08/22/17 20:59 07/23/17 20:42 Lorazepam (Ativan 2mg/ml 1ml) 0.5 mg Q4H PRN IV For Anxiety 07/22/17 15:30 07/29/17 15:29 Metformin HCl (Glucophage) 500 mg TIAC ORAL 07/24/17 06:30 08/23/17 06:29 07/24/17 12:00 Methylprednisolone Sodium Succinate (Solu-MEDROL) 40 mg EVERY 8 HOURS IV 07/23/17 22:00 08/21/17 19:29 07/24/17 14:51 Morphine Sulfate (Morphine Sulfate) 2 mg Q4H PRN IVP severe pain 7-10 07/22/17 15:30 07/29/17 15:29 07/24/17 14:02 Nitroglycerin (Ntg) 0.4 mg Q5M X 3 DOSES PRN SL Prn Chest Pain 07/22/17 15:30 08/21/17 15:29 Ondansetron HCl (Zofran) 4 mg Q6H PRN IVP Nausea & Vomiting 07/22/17 15:30 08/21/17 15:29 Pregabalin (Lyrica) 75 mg THREE TIMES A DAY ORAL 07/22/17 19:30 08/21/17 19:29 07/24/17 13:01 Promethazine HCl/ Codeine (Phenergan with Codeine) 5 ml Q6H PRN ORAL cough 07/22/17 15:30 08/21/17 15:29 Quetiapine Fumarate (SEROquel) 300 mg QHS ORAL 07/24/17 21:00 08/23/17 20:59 Theophylline (Bobby-Dur) 100 mg EVERY 12 HOURS ORAL 07/22/17 21:00 08/21/17 20:59 07/24/17 08:46 Ziprasidone (Geodon) 20 mg DAILY ORAL 07/23/17 09:00 08/22/17 08:59 07/24/17 09:14 Zolpidem Tartrate (Ambien) 5 mg HSPRN PRN ORAL Insomnia 07/24/17 21:00 07/31/17 20:59 QUINN SMITH Jul 24, 2017 15:35
[2017-07-24 16:00] VITALS: BP 107/58
--- NOTE | 2017-07-24 16:17 | General Progress Note ---
Assessment/Plan Problem List: (1) Hyperglycemia due to type 2 diabetes mellitus ICD Codes: E11.65 - Type 2 diabetes mellitus with hyperglycemia SNOMED: 451977182602426 (2) COPD exacerbation ICD Codes: J44.1 - Chronic obstructive pulmonary disease with (acute) exacerbation SNOMED: 806897712, [id number] Assessment/Plan increase Levemir to 40 units qhs increase Novolog to 30 units ac tid continue sliding scale ac / hs continue Metformin Subjective Allergies: Coded Allergies: No Known Allergies (Unverified , 02/06/15) All Systems: reviewed and negative except above Subjective glucose out of control despite insulin dose adjustment patient is ordering food from outside Objective Last 24 Hour Vital Signs Date Time Temp Pulse Resp B/P (MAP) Pulse Ox O2 Delivery O2 Flow Rate FiO2 07/24/17 15:13 120 20 94 Nasal Cannula 3.0 32 07/24/17 15:00 115 20 98 Nasal Cannula 3.0 32 07/24/17 12:00 98.1 115 21 122/53 93 Nasal Cannula 7.0 07/24/17 11:06 116 18 93 Nasal Cannula 3.0 32 07/24/17 11:06 115 20 97 Nasal Cannula 3.0 32 07/24/17 08:03 115 20 98 Nasal Cannula 3.0 32 07/24/17 08:00 97.0 113 20 120/76 97 Nasal Cannula 7.0 07/24/17 07:58 110 20 93 Nasal Cannula 3.0 32 07/24/17 07:58 Nasal Cannula 3.0 32 07/24/17 07:58 93 Nasal Cannula 3.0 32 07/24/17 06:28 97.9 07/24/17 04:00 97.9 123 21 102/56 96 Nasal Cannula 2.0 07/24/17 03:38 110 20 98 Nasal Cannula 3.0 32 07/24/17 03:29 109 20 94 Nasal Cannula 3.0 32 07/24/17 00:00 98.1 106 19 136/74 93 Nasal Cannula 2.0 07/23/17 23:24 116 20 99 Nasal Cannula 3.0 32 07/23/17 23:15 112 20 95 Nasal Cannula 3.0 32 07/23/17 20:00 98.4 123 19 123/65 93 Nasal Cannula 2.0 07/23/17 19:27 114 20 98 Nasal Cannula 3.0 32 07/23/17 19:17 94 Nasal Cannula 3.0 32 07/23/17 19:17 110 18 94 Nasal Cannula 3.0 32 07/23/17 19:17 Nasal Cannula 3.0 32 Intake and Output 07/24/17 07/25/17 19:00 07:00 Intake Total 240 ml Output Total 500 ml Balance -260 ml Intake Oral 240 ml Output Urine Total 500 ml # Bowel Movements 1 Laboratory Tests 07/24/17 05:15: White Blood Count 18.1#H, Red Blood Count 4.11L, Hemoglobin 12.5L, Hematocrit 36.5L, Mean Corpuscular Volume 89, Mean Corpuscular Hemoglobin 30.3, Mean Corpuscular Hemoglobin Concent 34.2, Red Cell Distribution Width 12.8, Platelet Count 245, Mean Platelet Volume 7.6, Neutrophils (%) (Auto) , Lymphocytes (%) ( Auto) , Monocytes (%) (Auto) , Eosinophils (%) (Auto) , Basophils (%) (Auto) , Differential Total Cells Counted 100, Neutrophils % (Manual) 83H, Lymphocytes % (Manual) 9L, Monocytes % (Manual) 5, Eosinophils % (Manual) 0, Basophils % ( Manual) 0, Band Neutrophils 3, Platelet Estimate Adequate, Platelet Morphology Normal, Sodium Level 132L, Potassium Level 4.8, Chloride Level 96L, Carbon Dioxide Level 24, Anion Gap 12, Blood Urea Nitrogen 21, Creatinine 0.8, Estimat Glomerular Filtration Rate > 60, Glucose Level 475#H, Calcium Level 9.3 Height (Feet): 5 Height (Inches): 11.00 Weight (Pounds): 232 General Appearance: no apparent distress Neck: normal alignment Cardiovascular: normal rate Respiratory/Chest: lungs clear Abdomen: normal bowel sounds Edema: no edema noted Arm (L), no edema noted Arm (R), no edema noted Leg (L), no edema noted Leg (R), no edema noted Pedal (L), no edema noted Pedal (R), no edema noted Generalized Objective Current Medications Medications (Trade) Dose Ordered Sig/Sofia Route PRN Reason Start Time Stop Time Status Last Admin Dose Admin Acetaminophen (Tylenol) 650 mg Q4H PRN ORAL FEVER>100.5 07/22/17 15:30 08/21/17 15:29 Albuterol/ Ipratropium (DuoNeb 0.5-3(2.5)mg/3ml) 3 ml Q4HRT HHN 07/22/17 23:00 07/27/17 22:59 07/24/17 15:11 Clonidine HCl (Catapres) 0.1 mg Q4H PRN ORAL sbp more than 160 07/22/17 15:30 08/21/17 15:29 Dextrose (Dextrose 50%) STAT PRN IV Hypoglycemia 07/22/17 18:30 08/21/17 18:29 Divalproex Sodium (Depakote ER) 500 mg EVERY 12 HOURS ORAL 07/24/17 21:00 08/23/17 20:59 Doxycycline Monohydrate (Vibramycin) 100 mg EVERY 12 HOURS ORAL 07/23/17 15:00 07/30/17 14:59 07/24/17 08:46 Heparin Sodium (Porcine) (Heparin 5000 units/ml) 5,000 units EVERY 12 HOURS SUBQ 07/22/17 21:00 08/21/17 20:59 07/23/17 08:34 Insulin Aspart (NovoLOG) BEFORE MEALS AND HS SUBQ 07/22/17 21:00 08/21/17 20:59 07/24/17 12:02 Insulin Aspart (NovoLOG) 18 units NOVOTIAC SUBQ 07/24/17 06:30 08/23/17 06:29 07/24/17 12:01 Insulin Detemir (Levemir) 24 units BEDTIME SUBQ 07/23/17 21:00 08/22/17 20:59 07/23/17 20:42 Lorazepam (Ativan 2mg/ml 1ml) 0.5 mg Q4H PRN IV For Anxiety 07/22/17 15:30 07/29/17 15:29 Metformin HCl (Glucophage) 500 mg TIAC ORAL 07/24/17 06:30 08/23/17 06:29 07/24/17 12:00 Methylprednisolone Sodium Succinate (Solu-MEDROL) 40 mg EVERY 8 HOURS IV 07/23/17 22:00 08/21/17 19:29 07/24/17 14:51 Morphine Sulfate (Morphine Sulfate) 2 mg Q4H PRN IVP severe pain 7-10 07/22/17 15:30 07/29/17 15:29 07/24/17 14:02 Nitroglycerin (Ntg) 0.4 mg Q5M X 3 DOSES PRN SL Prn Chest Pain 07/22/17 15:30 08/21/17 15:29 Ondansetron HCl (Zofran) 4 mg Q6H PRN IVP Nausea & Vomiting 07/22/17 15:30 08/21/17 15:29 Pregabalin (Lyrica) 75 mg THREE TIMES A DAY ORAL 07/22/17 19:30 08/21/17 19:29 07/24/17 13:01 Promethazine HCl/ Codeine (Phenergan with Codeine) 5 ml Q6H PRN ORAL cough 07/22/17 15:30 08/21/17 15:29 Quetiapine Fumarate (SEROquel) 300 mg QHS ORAL 07/24/17 21:00 08/23/17 20:59 Theophylline (Bobby-Dur) 100 mg EVERY 12 HOURS ORAL 07/22/17 21:00 08/21/17 20:59 07/24/17 08:46 Ziprasidone (Geodon) 20 mg DAILY ORAL 07/23/17 09:00 08/22/17 08:59 07/24/17 09:14 Zolpidem Tartrate (Ambien) 5 mg HSPRN PRN ORAL Insomnia 07/24/17 21:00 07/31/17 20:59 Item Value Date Time Bedside Blood Glucose 492 mg/dl H 07/24/17 1202 Bedside Blood Glucose Critically High Result 07/24/17 0621 Bedside Blood Glucose 466 mg/dl H 07/23/172042 ORALIA VALENCIA Jul 24, 2017 16:17
--- NOTE | 2017-07-24 18:35 | Infectious Diseases Prog Note ---
Assessment/Plan Problems: (1) COPD exacerbation Assessment & Plan: continue doxycycline, inhalers and taper steroids (2) Hyperglycemia due to type 2 diabetes mellitus Assessment & Plan: suspect poor compliance , monitor blood sugurar to keep tight glycemic control between 80-120 (3) Diabetes mellitus Assessment & Plan: recommend tight glycemic control to keep blood glucose between 80-120 Subjective Constitutional: Reports: no symptoms HEENT: Reports: no symptoms Respiratory: Reports: dry cough Breasts: Reports: no symptoms Cardiovascular: Reports: no symptoms Gastrointestinal/Abdominal: Reports: no symptoms Genitourinary: Reports: no symptoms Neurologic: Reports: no symptoms Psychiatric: Reports: no symptoms Skin: Reports: no symptoms Endocrine: Reports: no symptoms Allergies: Coded Allergies: No Known Allergies (Unverified , 02/06/15) Objective Vital Signs Last 24 Hour Vital Signs Date Time Temp Pulse Resp B/P (MAP) Pulse Ox O2 Delivery O2 Flow Rate FiO2 07/24/17 16:00 98.1 121 18 107/58 93 Nasal Cannula 4.0 07/24/17 15:13 120 20 94 Nasal Cannula 3.0 32 07/24/17 15:00 115 20 98 Nasal Cannula 3.0 32 07/24/17 12:00 98.1 115 21 122/53 93 Nasal Cannula 7.0 07/24/17 11:06 116 18 93 Nasal Cannula 3.0 32 07/24/17 11:06 115 20 97 Nasal Cannula 3.0 32 07/24/17 08:03 115 20 98 Nasal Cannula 3.0 32 07/24/17 08:00 97.0 113 20 120/76 97 Nasal Cannula 7.0 07/24/17 07:58 110 20 93 Nasal Cannula 3.0 32 07/24/17 07:58 Nasal Cannula 3.0 32 07/24/17 07:58 93 Nasal Cannula 3.0 32 07/24/17 06:28 97.9 07/24/17 04:00 97.9 123 21 102/56 96 Nasal Cannula 2.0 07/24/17 03:38 110 20 98 Nasal Cannula 3.0 32 07/24/17 03:29 109 20 94 Nasal Cannula 3.0 32 07/24/17 00:00 98.1 106 19 136/74 93 Nasal Cannula 2.0 07/23/17 23:24 116 20 99 Nasal Cannula 3.0 32 07/23/17 23:15 112 20 95 Nasal Cannula 3.0 32 07/23/17 20:00 98.4 123 19 123/65 93 Nasal Cannula 2.0 07/23/17 19:27 114 20 98 Nasal Cannula 3.0 32 07/23/17 19:17 94 Nasal Cannula 3.0 32 07/23/17 19:17 110 18 94 Nasal Cannula 3.0 32 07/23/17 19:17 Nasal Cannula 3.0 32 Height (Feet): 5 Height (Inches): 11.00 Weight (Pounds): 232 General Appearance: WD/WN, no acute distress HEENT: normocephalic, atraumatic, anicteric, mucous membranes moist, PERRL Respiratory/Chest: chest wall non-tender, no respiratory distress, no accessory muscle use, decreased breath sounds, inspiratory wheezing Cardiovascular: normal peripheral pulses, normal rate, regular rhythm, no gallop/murmur, no JVD Abdomen: normal bowel sounds, soft, non tender, no organomegaly, non distended , no mass, no scars Extremities: no cyanosis, no clubbing Skin: no rash, no lesions, no ulcers Microbiology Date/Time Source Procedure Growth Status 07/22/17 16:00 Blood Blood Culture - Preliminary NO GROWTH AFTER 24 HOURS Resulted 07/22/17 15:45 Blood Blood Culture - Preliminary NO GROWTH AFTER 24 HOURS Resulted 07/22/17 17:05 Nasal Nares MRSA Culture - Final Staphylococcus Aureus - Mrsa Complete 07/22/17 17:05 Rectum 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 Complete Laboratory Tests Test 07/24/17 05:15 White Blood Count 18.1 K/UL (4.8-10.8) #H Red Blood Count 4.11 M/UL (4.70-6.10) L Hemoglobin 12.5 G/DL (14.2-18.0) L Hematocrit 36.5 % (42.0-52.0) L Mean Corpuscular Volume 89 FL (80-99) Mean Corpuscular Hemoglobin 30.3 PG (27.0-31.0) Mean Corpuscular Hemoglobin Concent 34.2 G/DL (32.0-36.0) Red Cell Distribution Width 12.8 % (11.6-14.8) Platelet Count 245 K/UL (150-450) Mean Platelet Volume 7.6 FL (6.5-10.1) Neutrophils (%) (Auto) % (45.0-75.0) Lymphocytes (%) (Auto) % (20.0-45.0) Monocytes (%) (Auto) % (1.0-10.0) Eosinophils (%) (Auto) % (0.0-3.0) Basophils (%) (Auto) % (0.0-2.0) Differential Total Cells Counted 100 Neutrophils % (Manual) 83 % (45-75) H Lymphocytes % (Manual) 9 % (20-45) L Monocytes % (Manual) 5 % (1-10) Eosinophils % (Manual) 0 % (0-3) Basophils % (Manual) 0 % (0-2) Band Neutrophils 3 % (0-8) Platelet Estimate Adequate Platelet Morphology Normal Sodium Level 132 mEQ/L (135-145) L Potassium Level 4.8 mEQ/L (3.4-4.9) Chloride Level 96 mEQ/L (98-107) L Carbon Dioxide Level 24 mEQ/L (20-30) Anion Gap 12 (5-15) Blood Urea Nitrogen 21 mg/dL (7-23) Creatinine 0.8 mg/dL (0.7-1.2) Estimat Glomerular Filtration Rate > 60 mL/min (>60) Glucose Level 475 mg/dL (74-106) #H Calcium Level 9.3 mg/dL (8.6-10.2) Current Medications Medications (Trade) Dose Ordered Sig/Sofia Route PRN Reason Start Time Stop Time Status Last Admin Dose Admin Acetaminophen (Tylenol) 650 mg Q4H PRN ORAL FEVER>100.5 07/22/17 15:30 08/21/17 15:29 Albuterol/ Ipratropium (DuoNeb 0.5-3(2.5)mg/3ml) 3 ml Q4HRT HHN 07/22/17 23:00 07/27/17 22:59 07/24/17 15:11 Clonidine HCl (Catapres) 0.1 mg Q4H PRN ORAL sbp more than 160 07/22/17 15:30 08/21/17 15:29 Dextrose (Dextrose 50%) STAT PRN IV Hypoglycemia 07/22/17 18:30 08/21/17 18:29 Divalproex Sodium (Depakote ER) 500 mg EVERY 12 HOURS ORAL 07/24/17 21:00 08/23/17 20:59 Doxycycline Monohydrate (Vibramycin) 100 mg EVERY 12 HOURS ORAL 07/23/17 15:00 07/30/17 14:59 07/24/17 08:46 Heparin Sodium (Porcine) (Heparin 5000 units/ml) 5,000 units EVERY 12 HOURS SUBQ 07/22/17 21:00 08/21/17 20:59 07/23/17 08:34 Insulin Aspart (NovoLOG) BEFORE MEALS AND HS SUBQ 07/22/17 21:00 08/21/17 20:59 07/24/17 17:24 Insulin Aspart (NovoLOG) 30 units NOVOTIAC SUBQ 07/24/17 16:50 08/23/17 16:49 07/24/17 17:25 Insulin Detemir (Levemir) 40 units BEDTIME SUBQ 07/24/17 21:00 08/23/17 20:59 Lorazepam (Ativan 2mg/ml 1ml) 0.5 mg Q4H PRN IV For Anxiety 07/22/17 15:30 07/29/17 15:29 Metformin HCl (Glucophage) 500 mg TIAC ORAL 07/24/17 06:30 08/23/17 06:29 07/24/17 17:22 Methylprednisolone Sodium Succinate (Solu-MEDROL) 40 mg EVERY 8 HOURS IV 07/23/17 22:00 08/21/17 19:29 07/24/17 14:51 Morphine Sulfate (Morphine Sulfate) 2 mg Q4H PRN IVP severe pain 7-10 07/22/17 15:30 07/29/17 15:29 07/24/17 18:07 Nitroglycerin (Ntg) 0.4 mg Q5M X 3 DOSES PRN SL Prn Chest Pain 07/22/17 15:30 08/21/17 15:29 Ondansetron HCl (Zofran) 4 mg Q6H PRN IVP Nausea & Vomiting 07/22/17 15:30 08/21/17 15:29 Pregabalin (Lyrica) 75 mg THREE TIMES A DAY ORAL 07/22/17 19:30 08/21/17 19:29 07/24/17 18:07 Promethazine HCl/ Codeine (Phenergan with Codeine) 5 ml Q6H PRN ORAL cough 07/22/17 15:30 08/21/17 15:29 Quetiapine Fumarate (SEROquel) 300 mg QHS ORAL 07/24/17 21:00 08/23/17 20:59 Theophylline (Bobby-Dur) 100 mg EVERY 12 HOURS ORAL 07/22/17 21:00 08/21/17 20:59 07/24/17 08:46 Ziprasidone (Geodon) 20 mg DAILY ORAL 07/23/17 09:00 08/22/17 08:59 07/24/17 09:14 Zolpidem Tartrate (Ambien) 5 mg HSPRN PRN ORAL Insomnia 07/24/17 21:00 07/31/17 20:59 Teresita Sewell M.D. Jul 24, 2017 18:35
[2017-07-24 20:00] VITALS: BP 142/69
[2017-07-24] MEDS: Depakote ER 500mg tab ORAL SCH (21:24)
[2017-07-24] MEDS: Levemir Flexpen SUBQ SCH (21:29)
[2017-07-24] MEDS: Zolpidem 5mg tab ORAL PRN (22:14)
[2017-07-25] VITALS (7 sets, daily range): BP systolic 115–151; BP diastolic 60–99
[2017-07-25] MEDS: Morphine Sulfate 2mg/ml Inj IVP PRN ×6 (02:13→22:34)
[2017-07-25] MEDS: Albuterol/Ipratropium 3ml neb HHN SCH ×6 (03:32→23:22)
[2017-07-25] MEDS: metFORMIN 500mg tab ORAL SCH ×3 (06:02→16:03)
[2017-07-25] MEDS: Solu-MEDROL 125mg Inj IV SCH ×3 (06:02→22:31)
[2017-07-25] MEDS: NovoLOG Insulin Flexpen SUBQ SCH ×7 (06:03→20:38)
[2017-07-25 08:46] LABS: MEAN CORPUSCULAR HEMOGLOBIN 30.1 PG (27.0-31.0); MEAN CORPUSCULAR HGB CONC 34.1 G/DL (32.0-36.0); MEAN CORPUSCULAR VOLUME 88 FL (80-99); PLATELET COUNT 245 K/UL (150-450); RED BLOOD COUNT 4.12 M/UL (4.70-6.10); RED CELL DISTRIBUTION WIDTH 12.9 % (11.6-14.8)
[2017-07-25 08:58] LABS: ANION GAP 16 (5-15); CALCIUM 9.1 mg/dL (8.6-10.2); CARBON DIOXIDE 23 mEQ/L (20-30); CHLORIDE 94 mEQ/L (98-107); CREATININE 0.8 mg/dL (0.7-1.2); GLOMERULAR FILTRATION RATE > 60 mL/min (>60); HEMOLYSIS 5; POTASSIUM 4.4 mEQ/L (3.4-4.9); SODIUM 133 mEQ/L (135-145)
[2017-07-25] MEDS: Theophylline ER 100mg ORAL SCH ×2 (09:45→20:31)
[2017-07-25] MEDS: Depakote ER 500mg tab ORAL SCH ×2 (09:45→20:31)
[2017-07-25] MEDS: Ziprasidone 20mg cap ORAL SCH (09:45)
[2017-07-25] MEDS: Lyrica 75mg cap ORAL SCH ×3 (09:46→17:08)
[2017-07-25] MEDS: Heparin 5000 units/ml inj SUBQ SCH ×2 (09:47→20:32)
--- NOTE | 2017-07-25 10:14 | General Progress Note ---
Assessment/Plan Problem List: (1) Diabetes mellitus ICD Codes: E11.9 - Diabetes mellitus SNOMED: 96004652 (2) Generalized weakness ICD Codes: R53.1 - Weakness SNOMED: 36040267 (3) COPD exacerbation ICD Codes: J44.1 - Chronic obstructive pulmonary disease with (acute) exacerbation SNOMED: 527446476, 922481614 (4) Hyperglycemia due to type 2 diabetes mellitus ICD Codes: E11.65 - Type 2 diabetes mellitus with hyperglycemia SNOMED: 157335908782552 (5) Opiate dependence ICD Codes: F11.20 - Opioid dependence SNOMED: 08611537 (6) Anxiety ICD Codes: F41.9 - Anxiety disorder, unspecified; Z68.41 - Body mass index (BMI ) 40.0-44.9, adult SNOMED: 09766949 Status: stable, progressing, tolerating diet Assessment/Plan o2 pulm tx abx ot pt diet cbc bmp am ltach eval transfer Subjective Constitutional: Reports: weakness Respiratory: Reports: shortness of breath Allergies: Coded Allergies: No Known Allergies (Unverified , 02/06/15) All Systems: reviewed and negative except above Subjective o2 nc sleepy Objective Last 24 Hour Vital Signs Date Time Temp Pulse Resp B/P (MAP) Pulse Ox O2 Delivery O2 Flow Rate FiO2 07/25/17 08:08 92 22 94 Nasal Cannula 3.0 32 07/25/17 08:00 97.7 114 20 115/64 92 Nasal Cannula 2.0 07/25/17 07:58 92 22 92 Nasal Cannula 3.0 32 07/25/17 07:57 Nasal Cannula 3.0 32 07/25/17 07:56 92 Nasal Cannula 3.0 32 07/25/17 04:00 98.2 102 20 121/64 94 Room Air 07/25/17 03:41 105 20 95 Nasal Cannula 3.0 32 07/25/17 03:33 102 20 95 Nasal Cannula 3.0 32 07/25/17 00:00 97.0 109 20 119/62 92 Nasal Cannula 07/24/17 23:37 111 20 94 Nasal Cannula 3.0 32 07/24/17 23:29 110 20 91 Nasal Cannula 3.0 32 07/24/17 20:00 98.1 115 20 142/69 95 Nasal Cannula 07/24/17 19:37 116 20 92 Nasal Cannula 3.0 32 07/24/17 19:29 111 20 93 Nasal Cannula 3.0 32 07/24/17 19:28 Nasal Cannula 3.0 32 07/24/17 19:28 93 Nasal Cannula 3.0 32 07/24/17 16:00 98.1 121 18 107/58 93 Nasal Cannula 4.0 07/24/17 15:13 120 20 94 Nasal Cannula 3.0 32 07/24/17 15:00 115 20 98 Nasal Cannula 3.0 32 07/24/17 12:00 98.1 115 21 122/53 93 Nasal Cannula 7.0 07/24/17 11:06 116 18 93 Nasal Cannula 3.0 32 07/24/17 11:06 115 20 97 Nasal Cannula 3.0 32 Intake and Output 07/25/17 07/26/17 19:00 07:00 Intake Total 240 ml Balance 240 ml Intake Oral 240 ml Laboratory Tests 07/25/17 07:47: White Blood Count 14.0H, Red Blood Count 4.12L, Hemoglobin 12.4L, Hematocrit 36.4L, Mean Corpuscular Volume 88, Mean Corpuscular Hemoglobin 30.1, Mean Corpuscular Hemoglobin Concent 34.1, Red Cell Distribution Width 12.9, Platelet Count 245, Mean Platelet Volume 8.0, Neutrophils (%) (Auto) , Lymphocytes (%) ( Auto) , Monocytes (%) (Auto) , Eosinophils (%) (Auto) , Basophils (%) (Auto) , Neutrophils % (Manual) [Pending], Lymphocytes % (Manual) [Pending], Platelet Estimate [Pending], Platelet Morphology [Pending], Sodium Level 133L, Potassium Level 4.4, Chloride Level 94L, Carbon Dioxide Level 23, Anion Gap 16H, Blood Urea Nitrogen 20, Creatinine 0.8, Estimat Glomerular Filtration Rate > 60, Glucose Level 434H, Calcium Level 9.1 Height (Feet): 5 Height (Inches): 11.00 Weight (Pounds): 232 General Appearance: lethargic EENT: normal ENT inspection Neck: normal alignment Cardiovascular: normal peripheral pulses, normal rate, regular rhythm Respiratory/Chest: chest wall non-tender, lungs clear, normal breath sounds Abdomen: normal bowel sounds, non tender, soft Extremities: normal inspection Edema: no edema noted Arm (L), no edema noted Arm (R), no edema noted Leg (L), no edema noted Leg (R), no edema noted Pedal (L), no edema noted Pedal (R), no edema noted Generalized Neurologic: responsive, motor weakness Skin: normal pigmentation, warm/dry INDU KEEN Jul 25, 2017 10:14
[2017-07-25 10:34] LABS: BAND NEUTROPHILS % (MANUAL) 4 % (0-8); LYMPHOCYTES % (MANUAL) 8 % (20-45); NEUTROPHILS % (MANUAL) 87 % (45-75); PLATELET MORPHOLOGY NORMAL; TOTAL CELLS COUNTED 100
[2017-07-25 10:35] LABS: BASOPHILS % (MANUAL) 0 % (0-2); EOSINOPHILS % (MANUAL) 0 % (0-3); PLATELET ESTIMATE ADEQUATE
--- NOTE | 2017-07-25 15:24 | Pulmonology Progress Note ---
Assessment/Plan Problems: (1) COPD exacerbation (2) Lumbar back pain (3) Anxiety (4) Diabetes mellitus Assessment/Plan taper steroids IV abx check sputum sliding scale improving slowly Subjective ROS Limited/Unobtainable: No Constitutional: Reports: no symptoms Respiratory: Reports: no symptoms Allergies: Coded Allergies: No Known Allergies (Unverified , 02/06/15) Objective Last 24 Hour Vital Signs Date Time Temp Pulse Resp B/P (MAP) Pulse Ox O2 Delivery O2 Flow Rate FiO2 07/25/17 15:05 110 22 98 Nasal Cannula 3.0 32 07/25/17 14:55 104 22 95 Nasal Cannula 3.0 32 07/25/17 12:06 98.6 108 22 116/78 99 Room Air 07/25/17 11:49 102 20 100 Nasal Cannula 3.0 32 07/25/17 11:39 100 20 96 Nasal Cannula 3.0 32 07/25/17 08:08 92 22 94 Nasal Cannula 3.0 32 07/25/17 08:00 97.7 114 20 115/64 92 Nasal Cannula 2.0 07/25/17 07:58 92 22 92 Nasal Cannula 3.0 32 07/25/17 07:57 Nasal Cannula 3.0 32 07/25/17 07:56 92 Nasal Cannula 3.0 32 07/25/17 04:00 98.2 102 20 121/64 94 Room Air 07/25/17 03:41 105 20 95 Nasal Cannula 3.0 32 07/25/17 03:33 102 20 95 Nasal Cannula 3.0 32 07/25/17 00:00 97.0 109 20 119/62 92 Nasal Cannula 07/24/17 23:37 111 20 94 Nasal Cannula 3.0 32 07/24/17 23:29 110 20 91 Nasal Cannula 3.0 32 07/24/17 20:00 98.1 115 20 142/69 95 Nasal Cannula 07/24/17 19:37 116 20 92 Nasal Cannula 3.0 32 07/24/17 19:29 111 20 93 Nasal Cannula 3.0 32 07/24/17 19:28 Nasal Cannula 3.0 32 07/24/17 19:28 93 Nasal Cannula 3.0 32 07/24/17 16:00 98.1 121 18 107/58 93 Nasal Cannula 4.0 Intake and Output 07/25/17 07/26/17 19:00 07:00 Intake Total 240 ml Balance 240 ml Intake Oral 240 ml Objective General Appearance: WD/WN HEENT: normocephalic, atraumatic Respiratory/Chest: chest wall non-tender, lungs clear Cardiovascular: normal peripheral pulses, normal rate Abdomen: soft, non tender Extremities: no cyanosis Skin: no rash 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 Complete Laboratory Tests 07/25/17 07:47: White Blood Count 14.0H, Red Blood Count 4.12L, Hemoglobin 12.4L, Hematocrit 36.4L, Mean Corpuscular Volume 88, Mean Corpuscular Hemoglobin 30.1, Mean Corpuscular Hemoglobin Concent 34.1, Red Cell Distribution Width 12.9, Platelet Count 245, Mean Platelet Volume 8.0, Neutrophils (%) (Auto) , Lymphocytes (%) ( Auto) , Monocytes (%) (Auto) , Eosinophils (%) (Auto) , Basophils (%) (Auto) , Differential Total Cells Counted 100, Neutrophils % (Manual) 87H, Lymphocytes % (Manual) 8L, Monocytes % (Manual) 1, Eosinophils % (Manual) 0, Basophils % ( Manual) 0, Band Neutrophils 4, Platelet Estimate Adequate, Platelet Morphology Normal, Sodium Level 133L, Potassium Level 4.4, Chloride Level 94L, Carbon Dioxide Level 23, Anion Gap 16H, Blood Urea Nitrogen 20, Creatinine 0.8, Estimat Glomerular Filtration Rate > 60, Glucose Level 434H, Calcium Level 9.1 Current Medications Medications (Trade) Dose Ordered Sig/Sofia Route PRN Reason Start Time Stop Time Status Last Admin Dose Admin Acetaminophen (Tylenol) 650 mg Q4H PRN ORAL FEVER>100.5 07/22/17 15:30 08/21/17 15:29 Albuterol/ Ipratropium (DuoNeb 0.5-3(2.5)mg/3ml) 3 ml Q4HRT HHN 07/22/17 23:00 07/27/17 22:59 07/25/17 14:55 Clonidine HCl (Catapres) 0.1 mg Q4H PRN ORAL sbp more than 160 07/22/17 15:30 08/21/17 15:29 Dextrose (Dextrose 50%) STAT PRN IV Hypoglycemia 07/22/17 18:30 08/21/17 18:29 Divalproex Sodium (Depakote ER) 500 mg EVERY 12 HOURS ORAL 07/24/17 21:00 08/23/17 20:59 07/25/17 09:45 Doxycycline Monohydrate (Vibramycin) 100 mg EVERY 12 HOURS ORAL 07/23/17 15:00 07/30/17 14:59 07/25/17 09:45 Heparin Sodium (Porcine) (Heparin 5000 units/ml) 5,000 units EVERY 12 HOURS SUBQ 07/22/17 21:00 08/21/17 20:59 07/25/17 09:47 Insulin Aspart (NovoLOG) BEFORE MEALS AND HS SUBQ 07/22/17 21:00 08/21/17 20:59 07/25/17 11:30 Insulin Aspart (NovoLOG) 30 units NOVOTIAC SUBQ 07/24/17 16:50 08/23/17 16:49 07/25/17 11:30 Insulin Detemir (Levemir) 40 units BEDTIME SUBQ 07/24/17 21:00 08/23/17 20:59 07/24/17 21:29 Lorazepam (Ativan 2mg/ml 1ml) 0.5 mg Q4H PRN IV For Anxiety 07/22/17 15:30 07/29/17 15:29 Metformin HCl (Glucophage) 500 mg TIAC ORAL 07/24/17 06:30 08/23/17 06:29 07/25/17 11:31 Methylprednisolone Sodium Succinate (Solu-MEDROL) 40 mg EVERY 8 HOURS IV 07/23/17 22:00 08/21/17 19:29 07/25/17 13:35 Morphine Sulfate (Morphine Sulfate) 2 mg Q4H PRN IVP severe pain 7-10 07/22/17 15:30 07/29/17 15:29 07/25/17 14:33 Nitroglycerin (Ntg) 0.4 mg Q5M X 3 DOSES PRN SL Prn Chest Pain 07/22/17 15:30 08/21/17 15:29 Ondansetron HCl (Zofran) 4 mg Q6H PRN IVP Nausea & Vomiting 07/22/17 15:30 08/21/17 15:29 Pregabalin (Lyrica) 75 mg THREE TIMES A DAY ORAL 07/22/17 19:30 08/21/17 19:29 07/25/17 13:35 Promethazine HCl/ Codeine (Phenergan with Codeine) 5 ml Q6H PRN ORAL cough 07/22/17 15:30 08/21/17 15:29 Quetiapine Fumarate (SEROquel) 300 mg QHS ORAL 07/24/17 21:00 08/23/17 20:59 07/24/17 21:24 Theophylline (Bobby-Dur) 100 mg EVERY 12 HOURS ORAL 07/22/17 21:00 08/21/17 20:59 07/25/17 09:45 Ziprasidone (Geodon) 20 mg DAILY ORAL 07/23/17 09:00 08/22/17 08:59 07/25/17 09:45 Zolpidem Tartrate (Ambien) 5 mg HSPRN PRN ORAL Insomnia 07/24/17 21:00 07/31/17 20:59 07/24/17 22:14 QUINN SMITH Jul 25, 2017 15:24
--- NOTE | 2017-07-25 16:30 | Infectious Diseases Prog Note ---
Assessment/Plan Problems: (1) COPD exacerbation Assessment & Plan: continue doxycycline, inhalers and taper steroids (2) Hyperglycemia due to type 2 diabetes mellitus Assessment & Plan: suspect poor compliance , monitor blood sugurar to keep tight glycemic control between 80-120 (3) Diabetes mellitus Assessment & Plan: recommend tight glycemic control to keep blood glucose between 80-120 Subjective Constitutional: Reports: no symptoms HEENT: Reports: no symptoms Respiratory: Reports: no symptoms Breasts: Reports: no symptoms Cardiovascular: Reports: no symptoms Gastrointestinal/Abdominal: Reports: no symptoms Genitourinary: Reports: no symptoms Neurologic: Reports: no symptoms Psychiatric: Reports: no symptoms Skin: Reports: no symptoms Endocrine: Reports: no symptoms Hematologic: Reports: no symptoms Allergies: Coded Allergies: No Known Allergies (Unverified , 02/06/15) Objective Vital Signs Last 24 Hour Vital Signs Date Time Temp Pulse Resp B/P (MAP) Pulse Ox O2 Delivery O2 Flow Rate FiO2 07/25/17 15:44 97.6 110 20 119/63 99 Room Air 07/25/17 15:05 110 22 98 Nasal Cannula 3.0 32 07/25/17 14:55 104 22 95 Nasal Cannula 3.0 32 07/25/17 14:34 97.6 07/25/17 14:34 97.6 07/25/17 12:06 98.6 108 22 116/78 99 Room Air 07/25/17 11:49 102 20 100 Nasal Cannula 3.0 32 07/25/17 11:39 100 20 96 Nasal Cannula 3.0 32 07/25/17 08:08 92 22 94 Nasal Cannula 3.0 32 07/25/17 08:00 97.7 114 20 115/64 92 Nasal Cannula 2.0 07/25/17 07:58 92 22 92 Nasal Cannula 3.0 32 07/25/17 07:57 Nasal Cannula 3.0 32 07/25/17 07:56 92 Nasal Cannula 3.0 32 07/25/17 04:00 98.2 102 20 121/64 94 Room Air 07/25/17 03:41 105 20 95 Nasal Cannula 3.0 32 07/25/17 03:33 102 20 95 Nasal Cannula 3.0 32 07/25/17 00:00 97.0 109 20 119/62 92 Nasal Cannula 07/24/17 23:37 111 20 94 Nasal Cannula 3.0 32 07/24/17 23:29 110 20 91 Nasal Cannula 3.0 32 07/24/17 20:00 98.1 115 20 142/69 95 Nasal Cannula 07/24/17 19:37 116 20 92 Nasal Cannula 3.0 32 07/24/17 19:29 111 20 93 Nasal Cannula 3.0 32 07/24/17 19:28 Nasal Cannula 3.0 32 07/24/17 19:28 93 Nasal Cannula 3.0 32 Height (Feet): 5 Height (Inches): 11.00 Weight (Pounds): 232 General Appearance: WD/WN, no acute distress HEENT: normocephalic, atraumatic, anicteric, mucous membranes moist Respiratory/Chest: chest wall non-tender, lungs clear, no respiratory distress , no accessory muscle use, decreased breath sounds Cardiovascular: normal peripheral pulses, normal rate, regular rhythm, no gallop/murmur, no JVD Abdomen: normal bowel sounds, soft, non tender, no organomegaly, non distended , no mass Extremities: no cyanosis, no clubbing Skin: no rash, no lesions Microbiology Date/Time Source Procedure Growth Status 07/22/17 17:05 Nasal Nares MRSA Culture - Final Staphylococcus Aureus - Mrsa Complete 07/22/17 17:05 Rectum 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 Complete Laboratory Tests Test 07/25/17 07:47 White Blood Count 14.0 K/UL (4.8-10.8) H Red Blood Count 4.12 M/UL (4.70-6.10) L Hemoglobin 12.4 G/DL (14.2-18.0) L Hematocrit 36.4 % (42.0-52.0) L Mean Corpuscular Volume 88 FL (80-99) Mean Corpuscular Hemoglobin 30.1 PG (27.0-31.0) Mean Corpuscular Hemoglobin Concent 34.1 G/DL (32.0-36.0) Red Cell Distribution Width 12.9 % (11.6-14.8) Platelet Count 245 K/UL (150-450) Mean Platelet Volume 8.0 FL (6.5-10.1) Neutrophils (%) (Auto) % (45.0-75.0) Lymphocytes (%) (Auto) % (20.0-45.0) Monocytes (%) (Auto) % (1.0-10.0) Eosinophils (%) (Auto) % (0.0-3.0) Basophils (%) (Auto) % (0.0-2.0) Differential Total Cells Counted 100 Neutrophils % (Manual) 87 % (45-75) H Lymphocytes % (Manual) 8 % (20-45) L Monocytes % (Manual) 1 % (1-10) Eosinophils % (Manual) 0 % (0-3) Basophils % (Manual) 0 % (0-2) Band Neutrophils 4 % (0-8) Platelet Estimate Adequate Platelet Morphology Normal Sodium Level 133 mEQ/L (135-145) L Potassium Level 4.4 mEQ/L (3.4-4.9) Chloride Level 94 mEQ/L (98-107) L Carbon Dioxide Level 23 mEQ/L (20-30) Anion Gap 16 (5-15) H Blood Urea Nitrogen 20 mg/dL (7-23) Creatinine 0.8 mg/dL (0.7-1.2) Estimat Glomerular Filtration Rate > 60 mL/min (>60) Glucose Level 434 mg/dL (74-106) H Calcium Level 9.1 mg/dL (8.6-10.2) Current Medications Medications (Trade) Dose Ordered Sig/Sofia Route PRN Reason Start Time Stop Time Status Last Admin Dose Admin Acetaminophen (Tylenol) 650 mg Q4H PRN ORAL FEVER>100.5 07/22/17 15:30 08/21/17 15:29 Albuterol/ Ipratropium (DuoNeb 0.5-3(2.5)mg/3ml) 3 ml Q4HRT HHN 07/22/17 23:00 07/27/17 22:59 07/25/17 14:55 Clonidine HCl (Catapres) 0.1 mg Q4H PRN ORAL sbp more than 160 07/22/17 15:30 08/21/17 15:29 Dextrose (Dextrose 50%) STAT PRN IV Hypoglycemia 07/22/17 18:30 08/21/17 18:29 Divalproex Sodium (Depakote ER) 500 mg EVERY 12 HOURS ORAL 07/24/17 21:00 08/23/17 20:59 07/25/17 09:45 Doxycycline Monohydrate (Vibramycin) 100 mg EVERY 12 HOURS ORAL 07/23/17 15:00 07/30/17 14:59 07/25/17 09:45 Heparin Sodium (Porcine) (Heparin 5000 units/ml) 5,000 units EVERY 12 HOURS SUBQ 07/22/17 21:00 08/21/17 20:59 07/25/17 09:47 Insulin Aspart (NovoLOG) BEFORE MEALS AND HS SUBQ 07/22/17 21:00 08/21/17 20:59 07/25/17 16:18 Insulin Aspart (NovoLOG) 30 units NOVOTIAC SUBQ 07/24/17 16:50 08/23/17 16:49 07/25/17 16:19 Insulin Detemir (Levemir) 40 units BEDTIME SUBQ 07/24/17 21:00 08/23/17 20:59 07/24/17 21:29 Lorazepam (Ativan 2mg/ml 1ml) 0.5 mg Q4H PRN IV For Anxiety 07/22/17 15:30 07/29/17 15:29 Metformin HCl (Glucophage) 500 mg TIAC ORAL 07/24/17 06:30 08/23/17 06:29 07/25/17 16:03 Methylprednisolone Sodium Succinate (Solu-MEDROL) 40 mg EVERY 8 HOURS IV 07/23/17 22:00 08/21/17 19:29 07/25/17 13:35 Morphine Sulfate (Morphine Sulfate) 2 mg Q4H PRN IVP severe pain 7-10 07/22/17 15:30 07/29/17 15:29 07/25/17 14:33 Nitroglycerin (Ntg) 0.4 mg Q5M X 3 DOSES PRN SL Prn Chest Pain 07/22/17 15:30 08/21/17 15:29 Ondansetron HCl (Zofran) 4 mg Q6H PRN IVP Nausea & Vomiting 07/22/17 15:30 08/21/17 15:29 Pregabalin (Lyrica) 75 mg THREE TIMES A DAY ORAL 07/22/17 19:30 08/21/17 19:29 07/25/17 13:35 Promethazine HCl/ Codeine (Phenergan with Codeine) 5 ml Q6H PRN ORAL cough 07/22/17 15:30 10/27/17 15:29 Quetiapine Fumarate (SEROquel) 300 mg QHS ORAL 07/24/17 21:00 08/23/17 20:59 07/24/17 21:24 Theophylline (Bobby-Dur) 100 mg EVERY 12 HOURS ORAL 07/22/17 21:00 08/21/17 20:59 07/25/17 09:45 Ziprasidone (Geodon) 20 mg DAILY ORAL 07/23/17 09:00 08/22/17 08:59 07/25/17 09:45 Zolpidem Tartrate (Ambien) 5 mg HSPRN PRN ORAL Insomnia 07/24/17 21:00 07/31/17 20:59 07/24/17 22:14 Teresita Sewell M.D. Jul 25, 2017 16:30
[2017-07-25] MEDS: Levemir Flexpen SUBQ SCH (20:38)
[2017-07-25] MEDS: Zolpidem 5mg tab ORAL PRN (23:48)
[2017-07-26] VITALS: BP 122/65
[2017-07-26] MEDS: Morphine Sulfate 2mg/ml Inj IVP PRN ×6 (02:34→22:40)
[2017-07-26] MEDS: Albuterol/Ipratropium 3ml neb HHN SCH ×6 (03:29→23:00)
[2017-07-26 04:00] VITALS: BP 114/65
[2017-07-26] MEDS: Solu-MEDROL 125mg Inj IV SCH ×2 (05:48→14:01)
[2017-07-26] MEDS: metFORMIN 500mg tab ORAL SCH ×3 (05:49→16:15)
[2017-07-26] MEDS: NovoLOG Insulin Flexpen SUBQ SCH ×7 (05:50→21:00)
--- NOTE | 2017-07-26 07:39 | General Progress Note ---
Assessment/Plan Problem List: (1) Hyperglycemia due to type 2 diabetes mellitus ICD Codes: E11.65 - Type 2 diabetes mellitus with hyperglycemia SNOMED: 422477218603989 (2) COPD exacerbation ICD Codes: J44.1 - Chronic obstructive pulmonary disease with (acute) exacerbation SNOMED: 850442499, 336762560 Assessment/Plan diabetes exacerbated by IVSM and non compliance with diet increase Levemir to 30 units bid units qhs increase Novolog to 45 units ac tid continue sliding scale ac / hs continue Metformin Subjective Allergies: Coded Allergies: No Known Allergies (Unverified , 02/06/15) All Systems: reviewed and negative except above Subjective glucose out of control despite insulin dose adjustment non compliant with diet Objective Last 24 Hour Vital Signs Date Time Temp Pulse Resp B/P (MAP) Pulse Ox O2 Delivery O2 Flow Rate FiO2 07/26/17 07:25 Nasal Cannula 3.0 32 07/26/17 07:25 111 20 98 Nasal Cannula 3.0 32 07/26/17 07:25 98 Nasal Cannula 3.0 32 07/26/17 07:20 110 20 96 Nasal Cannula 3.0 32 07/26/17 04:00 98.1 117 20 114/65 94 07/26/17 03:39 118 20 97 Nasal Cannula 3.0 32 07/26/17 03:29 112 20 94 Nasal Cannula 3.0 32 07/26/17 00:00 97.5 108 21 122/65 95 Nasal Cannula 2.0 07/25/17 23:30 110 20 92 Nasal Cannula 3.0 32 07/25/17 23:23 96 20 93 Nasal Cannula 3.0 32 07/25/17 20:00 97.5 115 22 132/60 92 Room Air 07/25/17 19:35 122 20 91 Nasal Cannula 3.0 32 07/25/17 19:26 111 20 92 Nasal Cannula 3.0 32 07/25/17 19:22 Nasal Cannula 3.0 32 07/25/17 19:22 92 Nasal Cannula 3.0 32 07/25/17 18:07 98.2 07/25/17 17:20 98.2 87 22 151/99 92 Nasal Cannula 2.0 07/25/17 15:44 97.6 110 20 119/63 99 Room Air 07/25/17 15:05 110 22 98 Nasal Cannula 3.0 32 07/25/17 14:55 104 22 95 Nasal Cannula 3.0 32 07/25/17 14:34 97.6 07/25/17 12:06 98.6 108 22 116/78 99 Room Air 07/25/17 11:49 102 20 100 Nasal Cannula 3.0 32 07/25/17 11:39 100 20 96 Nasal Cannula 3.0 32 07/25/17 08:08 92 22 94 Nasal Cannula 3.0 32 07/25/17 08:00 97.7 114 20 115/64 92 Nasal Cannula 2.0 07/25/17 07:58 92 22 92 Nasal Cannula 3.0 32 07/25/17 07:57 Nasal Cannula 3.0 32 07/25/17 07:56 92 Nasal Cannula 3.0 32 Laboratory Tests 07/25/17 07:47: White Blood Count 14.0H, Red Blood Count 4.12L, Hemoglobin 12.4L, Hematocrit 36.4L, Mean Corpuscular Volume 88, Mean Corpuscular Hemoglobin 30.1, Mean Corpuscular Hemoglobin Concent 34.1, Red Cell Distribution Width 12.9, Platelet Count 245, Mean Platelet Volume 8.0, Neutrophils (%) (Auto) , Lymphocytes (%) ( Auto) , Monocytes (%) (Auto) , Eosinophils (%) (Auto) , Basophils (%) (Auto) , Differential Total Cells Counted 100, Neutrophils % (Manual) 87H, Lymphocytes % (Manual) 8L, Monocytes % (Manual) 1, Eosinophils % (Manual) 0, Basophils % ( Manual) 0, Band Neutrophils 4, Platelet Estimate Adequate, Platelet Morphology Normal, Sodium Level 133L, Potassium Level 4.4, Chloride Level 94L, Carbon Dioxide Level 23, Anion Gap 16H, Blood Urea Nitrogen 20, Creatinine 0.8, Estimat Glomerular Filtration Rate > 60, Glucose Level 434H, Calcium Level 9.1 Height (Feet): 5 Height (Inches): 11.00 Weight (Pounds): 232 General Appearance: no apparent distress EENT: PERRL/EOMI Neck: normal alignment Cardiovascular: normal rate Respiratory/Chest: decreased breath sounds Abdomen: normal bowel sounds Pelvis: normal external exam Edema: no edema noted Arm (L), no edema noted Arm (R), no edema noted Leg (L), no edema noted Leg (R), no edema noted Pedal (L), no edema noted Pedal (R), no edema noted Generalized Objective Current Medications Medications (Trade) Dose Ordered Sig/Sofia Route PRN Reason Start Time Stop Time Status Last Admin Dose Admin Acetaminophen (Tylenol) 650 mg Q4H PRN ORAL FEVER>100.5 07/22/17 15:30 08/21/17 15:29 Albuterol/ Ipratropium (DuoNeb 0.5-3(2.5)mg/3ml) 3 ml Q4HRT HHN 07/22/17 23:00 07/27/17 22:59 07/26/17 07:34 Clonidine HCl (Catapres) 0.1 mg Q4H PRN ORAL sbp more than 160 07/22/17 15:30 08/21/17 15:29 Dextrose (Dextrose 50%) STAT PRN IV Hypoglycemia 07/22/17 18:30 08/21/17 18:29 Divalproex Sodium (Depakote ER) 500 mg EVERY 12 HOURS ORAL 07/24/17 21:00 08/23/17 20:59 07/25/17 20:31 Doxycycline Monohydrate (Vibramycin) 100 mg EVERY 12 HOURS ORAL 07/23/17 15:00 07/30/17 14:59 07/25/17 20:31 Heparin Sodium (Porcine) (Heparin 5000 units/ml) 5,000 units EVERY 12 HOURS SUBQ 07/22/17 21:00 08/21/17 20:59 07/25/17 09:47 Insulin Aspart (NovoLOG) BEFORE MEALS AND HS SUBQ 07/22/17 21:00 08/21/17 20:59 07/26/17 05:50 Insulin Aspart (NovoLOG) 30 units NOVOTIAC SUBQ 07/24/17 16:50 08/23/17 16:49 07/26/17 05:50 Insulin Detemir (Levemir) 40 units BEDTIME SUBQ 07/24/17 21:00 08/23/17 20:59 07/25/17 20:38 Lorazepam (Ativan 2mg/ml 1ml) 0.5 mg Q4H PRN IV For Anxiety 07/22/17 15:30 07/29/17 15:29 Metformin HCl (Glucophage) 500 mg TIAC ORAL 07/24/17 06:30 08/23/17 06:29 07/26/17 05:49 Methylprednisolone Sodium Succinate (Solu-MEDROL) 40 mg EVERY 8 HOURS IV 07/23/17 22:00 08/21/17 19:29 07/26/17 05:48 Morphine Sulfate (Morphine Sulfate) 2 mg Q4H PRN IVP severe pain 7-10 07/22/17 15:30 07/29/17 15:29 07/26/17 06:37 Nitroglycerin (Ntg) 0.4 mg Q5M X 3 DOSES PRN SL Prn Chest Pain 07/22/17 15:30 08/21/17 15:29 Ondansetron HCl (Zofran) 4 mg Q6H PRN IVP Nausea & Vomiting 07/22/17 15:30 08/21/17 15:29 Pregabalin (Lyrica) 75 mg THREE TIMES A DAY ORAL 07/22/17 19:30 08/21/17 19:29 07/25/17 17:08 Promethazine HCl/ Codeine (Phenergan with Codeine) 5 ml Q6H PRN ORAL cough 07/22/17 15:30 08/21/17 15:29 Quetiapine Fumarate (SEROquel) 300 mg QHS ORAL 07/24/17 21:00 08/23/17 20:59 07/25/17 20:31 Theophylline (Bobby-Dur) 100 mg EVERY 12 HOURS ORAL 07/22/17 21:00 08/21/17 20:59 07/25/17 20:31 Ziprasidone (Geodon) 20 mg DAILY ORAL 07/23/17 09:00 08/22/17 08:59 07/25/17 09:45 Zolpidem Tartrate (Ambien) 5 mg HSPRN PRN ORAL Insomnia 07/24/17 21:00 07/31/17 20:59 07/25/17 23:48 Item Value Date Time Bedside Blood Glucose 455 mg/dl H 07/26/17 0630 Bedside Blood Glucose 476 mg/dl H 07/25/17 2100 Bedside Blood Glucose 400 mg/dl H 07/25/17 1619 Bedside Blood Glucose 443 mg/dl H 07/25/17 1130 ORALIA VALENCIA Jul 26, 2017 07:39
[2017-07-26 08:00] VITALS: BP 140/67
[2017-07-26 08:05] LABS: BASOPHILS % (AUTO) 0.4 % (0.0-2.0); LYMPHOCYTES % (AUTO) 10.5 % (20.0-45.0); MEAN CORPUSCULAR HEMOGLOBIN 29.5 PG (27.0-31.0); MEAN CORPUSCULAR HGB CONC 33.5 G/DL (32.0-36.0); MEAN CORPUSCULAR VOLUME 88 FL (80-99); MEAN PLATELET VOLUME 7.6 FL (6.5-10.1); MONOCYTES % (AUTO) 5.3 % (1.0-10.0); NEUTROPHILS % (AUTO) 83.8 % (45.0-75.0); PLATELET COUNT 221 K/UL (150-450); RED BLOOD COUNT 4.25 M/UL (4.70-6.10); RED CELL DISTRIBUTION WIDTH 12.6 % (11.6-14.8); WHITE BLOOD COUNT 14.1 K/UL (4.8-10.8)
[2017-07-26 08:42] LABS: ANION GAP 18 (5-15); CALCIUM 9.1 mg/dL (8.6-10.2); CARBON DIOXIDE 21 mEQ/L (20-30); CHLORIDE 92 mEQ/L (98-107); CREATININE 0.8 mg/dL (0.7-1.2); GLOMERULAR FILTRATION RATE > 60 mL/min (>60); HEMOLYSIS 2; POTASSIUM 4.1 mEQ/L (3.4-4.9); SODIUM 131 mEQ/L (135-145)
[2017-07-26] MEDS: Levemir Flexpen SUBQ SCH ×2 (09:27→18:15)
[2017-07-26] MEDS: Theophylline ER 100mg ORAL SCH ×2 (09:28→20:57)
[2017-07-26] MEDS: Heparin 5000 units/ml inj SUBQ SCH ×2 (09:28→20:59)
[2017-07-26] MEDS: Lyrica 75mg cap ORAL SCH ×3 (09:28→18:09)
[2017-07-26] MEDS: Depakote ER 500mg tab ORAL SCH ×2 (09:28→20:57)
[2017-07-26] MEDS: Ziprasidone 20mg cap ORAL SCH (09:28)
--- NOTE | 2017-07-26 09:54 | General Progress Note ---
Assessment/Plan Problem List: (1) Diabetes mellitus ICD Codes: E11.9 - Diabetes mellitus SNOMED: 02134243 (2) Generalized weakness ICD Codes: R53.1 - Weakness SNOMED: 64465302 (3) COPD exacerbation ICD Codes: J44.1 - Chronic obstructive pulmonary disease with (acute) exacerbation SNOMED: 284919804, 839723068 (4) Hyperglycemia due to type 2 diabetes mellitus ICD Codes: E11.65 - Type 2 diabetes mellitus with hyperglycemia SNOMED: 698345845137237 (5) Opiate dependence ICD Codes: F11.20 - Opioid dependence SNOMED: 78868762 (6) Anxiety ICD Codes: F41.9 - Anxiety disorder, unspecified; Z68.41 - Body mass index (BMI ) 40.0-44.9, adult SNOMED: 87059013 Status: stable, progressing, tolerating diet Assessment/Plan o2 pulm tx abx ot pt diet cbc bmp am ltach eval transfer Subjective Constitutional: Reports: weakness Respiratory: Reports: shortness of breath Allergies: Coded Allergies: No Known Allergies (Unverified , 02/06/15) All Systems: reviewed and negative except above Subjective o2 nc sleepy Objective Last 24 Hour Vital Signs Date Time Temp Pulse Resp B/P (MAP) Pulse Ox O2 Delivery O2 Flow Rate FiO2 07/26/17 08:00 97.7 115 18 140/67 Room Air 07/26/17 07:25 Nasal Cannula 3.0 32 07/26/17 07:25 111 20 98 Nasal Cannula 3.0 32 07/26/17 07:25 98 Nasal Cannula 3.0 32 07/26/17 07:20 110 20 96 Nasal Cannula 3.0 32 07/26/17 04:00 98.1 117 20 114/65 94 07/26/17 03:39 118 20 97 Nasal Cannula 3.0 32 07/26/17 03:29 112 20 94 Nasal Cannula 3.0 32 07/26/17 00:00 97.5 108 21 122/65 95 Nasal Cannula 2.0 07/25/17 23:30 110 20 92 Nasal Cannula 3.0 32 07/25/17 23:23 96 20 93 Nasal Cannula 3.0 32 07/25/17 20:00 97.5 115 22 132/60 92 Room Air 07/25/17 19:35 122 20 91 Nasal Cannula 3.0 32 07/25/17 19:26 111 20 92 Nasal Cannula 3.0 32 07/25/17 19:22 Nasal Cannula 3.0 32 07/25/17 19:22 92 Nasal Cannula 3.0 32 07/25/17 18:07 98.2 07/25/17 17:20 98.2 87 22 151/99 92 Nasal Cannula 2.0 07/25/17 15:44 97.6 110 20 119/63 99 Room Air 07/25/17 15:05 110 22 98 Nasal Cannula 3.0 32 07/25/17 14:55 104 22 95 Nasal Cannula 3.0 32 07/25/17 14:34 97.6 07/25/17 12:06 98.6 108 22 116/78 99 Room Air 07/25/17 11:49 102 20 100 Nasal Cannula 3.0 32 07/25/17 11:39 100 20 96 Nasal Cannula 3.0 32 Laboratory Tests 07/26/17 07:20: White Blood Count 14.1H, Red Blood Count 4.25L, Hemoglobin 12.5L, Hematocrit 37.4L, Mean Corpuscular Volume 88, Mean Corpuscular Hemoglobin 29.5, Mean Corpuscular Hemoglobin Concent 33.5, Red Cell Distribution Width 12.6, Platelet Count 221, Mean Platelet Volume 7.6, Neutrophils (%) (Auto) 83.8H, Lymphocytes ( %) (Auto) 10.5L, Monocytes (%) (Auto) 5.3, Eosinophils (%) (Auto) 0.0, Basophils (%) (Auto) 0.4, Sodium Level 131L, Potassium Level 4.1, Chloride Level 92L, Carbon Dioxide Level 21, Anion Gap 18H, Blood Urea Nitrogen 20, Creatinine 0.8, Estimat Glomerular Filtration Rate > 60, Glucose Level 463H, Calcium Level 9.1 Height (Feet): 5 Height (Inches): 11.00 Weight (Pounds): 232 General Appearance: lethargic EENT: normal ENT inspection Neck: normal alignment Cardiovascular: normal peripheral pulses, normal rate, regular rhythm Respiratory/Chest: chest wall non-tender, lungs clear, decreased breath sounds Abdomen: normal bowel sounds, non tender, soft Extremities: normal inspection Edema: no edema noted Arm (L), no edema noted Arm (R), no edema noted Leg (L), no edema noted Leg (R), no edema noted Pedal (L), no edema noted Pedal (R), no edema noted Generalized Neurologic: responsive, motor weakness Skin: normal pigmentation, warm/dry INDU KEEN Jul 26, 2017 09:54
[2017-07-26] MEDS ORDERED: D5NS 1,000 ML IV SCH (11:00)
--- NOTE | 2017-07-26 11:36 | General Progress Note ---
Assessment/Plan Assessment/Plan (1) Chiari malformation type II (2) Degenerative disc disease, cervical (3) Lumbar degenerative disc disease (4) Arthritis, lumbar spine (5) Peripheral neuropathy (6) Hydrocephalus (7) Diabetes mellitus Pt will be continued on Morphine as needed. Pt was d/w Dr. Napier and he concurred. Subjective Date patient seen: Jul 26, 2017 Time patient seen: 10:30 - am Allergies: Coded Allergies: No Known Allergies (Unverified , 02/06/15) Subjective Constitutional: Reports: weakness, Denies: chills, diaphoresis, fever, malaise , no symptoms, other HEENT: Denies: blurred vision, double vision, ear discharge, ear pain, eye pain , mouth pain, mouth swelling, no symptoms, nose congestion, nose pain, other, tearing, throat pain, throat swelling Cardiovascular: Denies: chest pain, edema, irregular heart rate, lightheadedness, no symptoms, other, palpitations, syncope Respiratory: Denies: SOB at rest, SOB with excertion, cough, no symptoms, orthopnea, other, shortness of breath, sputum, stridor, wheezing Gastrointestinal/Abdominal: Denies: abdomen distended, abdominal pain, black stools, blood in stool, constipated, diarrhea, difficulty swallowing, nausea, no symptoms, other, poor appetite, poor fluid intake, rectal bleeding, tarry stools, vomiting Genitourinary: Denies: burning, discharge, flank pain, frequency, hematuria, incontinence, no symptoms, other, pain, urgency Neurologic/Psychiatric: Reports: headache, numbness, tingling, weakness, Denies : anxiety, depressed, emotional problems, no symptoms, other, paresthesia, pre- existing deficit, seizure, tremors Endocrine: Denies: excessive sweating, flushing, increased hunger, increased thirst, increased urine, intolerance to cold, intolerance to heat, no symptoms, other, unexplained weight gain, unexplained weight loss Hematologic/Lymphatic: Denies: anemia, easy bleeding, easy bruising, no symptoms, other Subjective Patient is in bed is c/o pain which has been at a moderate level on the morphine. Objective Last 24 Hour Vital Signs Date Time Temp Pulse Resp B/P (MAP) Pulse Ox O2 Delivery O2 Flow Rate FiO2 07/26/17 11:10 115 20 98 Nasal Cannula 3.0 32 07/26/17 11:05 114 20 95 Nasal Cannula 3.0 32 07/26/17 11:05 98.1 07/26/17 10:27 98.1 07/26/17 08:00 97.7 115 18 140/67 Room Air 07/26/17 07:25 Nasal Cannula 3.0 32 07/26/17 07:25 111 20 98 Nasal Cannula 3.0 32 07/26/17 07:25 98 Nasal Cannula 3.0 32 07/26/17 07:20 110 20 96 Nasal Cannula 3.0 32 07/26/17 04:00 98.1 117 20 114/65 94 07/26/17 03:39 118 20 97 Nasal Cannula 3.0 32 07/26/17 03:29 112 20 94 Nasal Cannula 3.0 32 07/26/17 00:00 97.5 108 21 122/65 95 Nasal Cannula 2.0 07/25/17 23:30 110 20 92 Nasal Cannula 3.0 32 07/25/17 23:23 96 20 93 Nasal Cannula 3.0 32 07/25/17 20:00 97.5 115 22 132/60 92 Room Air 07/25/17 19:35 122 20 91 Nasal Cannula 3.0 32 07/25/17 19:26 111 20 92 Nasal Cannula 3.0 32 07/25/17 19:22 Nasal Cannula 3.0 32 07/25/17 19:22 92 Nasal Cannula 3.0 32 07/25/17 17:20 98.2 87 22 151/99 92 Nasal Cannula 2.0 07/25/17 15:44 97.6 110 20 119/63 99 Room Air 07/25/17 15:05 110 22 98 Nasal Cannula 3.0 32 07/25/17 14:55 104 22 95 Nasal Cannula 3.0 32 07/25/17 12:06 98.6 108 22 116/78 99 Room Air 07/25/17 11:49 102 20 100 Nasal Cannula 3.0 32 07/25/17 11:39 100 20 96 Nasal Cannula 3.0 32 Laboratory Tests 07/26/17 07:20: White Blood Count 14.1H, Red Blood Count 4.25L, Hemoglobin 12.5L, Hematocrit 37.4L, Mean Corpuscular Volume 88, Mean Corpuscular Hemoglobin 29.5, Mean Corpuscular Hemoglobin Concent 33.5, Red Cell Distribution Width 12.6, Platelet Count 221, Mean Platelet Volume 7.6, Neutrophils (%) (Auto) 83.8H, Lymphocytes ( %) (Auto) 10.5L, Monocytes (%) (Auto) 5.3, Eosinophils (%) (Auto) 0.0, Basophils (%) (Auto) 0.4, Sodium Level 131L, Potassium Level 4.1, Chloride Level 92L, Carbon Dioxide Level 21, Anion Gap 18H, Blood Urea Nitrogen 20, Creatinine 0.8, Estimat Glomerular Filtration Rate > 60, Glucose Level 463H, Calcium Level 9.1 Height (Feet): 5 Height (Inches): 11.00 Weight (Pounds): 232 Objective General Appearance: no apparent distress, alert EENT: normal ENT inspection, TMs normal Neck: supple, limited range of motion, muscle spasm Cardiovascular: normal rate, regular rhythm Respiratory/Chest: decreased breath sounds Abdomen: non tender, soft Extremities: non-tender Edema: no edema noted Arm (L), no edema noted Arm (R), no edema noted Leg (L), no edema noted Leg (R), no edema noted Pedal (L), no edema noted Pedal (R), no edema noted Generalized Neurologic: alert, oriented x 3 Skin: warm/dry TREE SINGLETON Jul 26, 2017 11:36
[2017-07-26 12:00] VITALS: BP 138/70
--- NOTE | 2017-07-26 12:30 | Consultation ---
DATE OF CONSULTATION: 07/23/2017 PSYCHOTHERAPY CONSULTATION AND PROGRESS NOTE CONSULTING PHYSICIAN: Juan Chinchilla M.D. TREATING ATTENDING PHYSICIAN: Aniceto Sepulveda D.O. History of Present Illness: The patient is a 36-year-old male patient. The patient has a history of schizoaffective disorder and history of possible bipolar disorder. The patient brought to the hospital for chronic obstructive pulmonary disorder and hyperglycemia. The patient is from [facility]. The patient states that he was brought to the hospital, admitted for treatment due to mood was fluctuating, his current medical condition. hypertension, some depression and for these reasons the patient is referred for psychotherapeutic services. The patient does have a history of schizoaffective disorder, bipolar type. Denies suicidal or homicidal thoughts of ideation. Denies auditory or visual hallucinations at this time. . Past Medical History: Includes a history of neuropathy, diabetes, and lower extremity weakness. ALLERGIES: The patient has no known drug allergies. Substance Abuse History: The patient does have a history of smoking cigarettes; however, denies history of alcohol use or illicit drug use. Psychiatric History: The patient schizoaffective disorder, bipolar type. The patient has been treated with psychotropic medications in the past. Social History: The patient is a 36-year-old male patient. The patient is currently a resident at [facility]. The patient states that he is . Mental Status Examination: The patient is alert and oriented x4 to person, place, time, and situation. His mood is depressed. Affect is blunted. Thought process is fairly disorganized. The patient has poor attention and concentration. Poor insight, judgment, and impulse control. DIAGNOSES: AXIS I Schizoaffective disorder, bipolar type. AXIS II Deferred. AXIS III Per History and Physical. Plan: This clinician assessed the patient, provided the patient with reality orientation and supportive psychotherapy. Encouraging the patient to participate in treatment milieu as well as . Continue with medication management and behavioral management. This clinician has reviewed the patient's chart and discussed the treatment with the nursing staff. Juan Chinchilla PsyD. DR: Brittany JOB#: [id number] CC:
--- NOTE | 2017-07-26 12:30 | Consultation ---
DATE OF CONSULTATION: 07/24/2017 NOTE: "POOR AUDIO QUALITY" PSYCHIATRIC CONSULTATION History of Present Illness: The patient is a 36-year-old male patient, . The patient admitted with diagnoses of COPD, hyperglycemia, , mood lability, distress, but not on the CPAP . It affected . So, the consultation requested for this patient complications . Social History: The patient . Financially supported by [email or web address] and Medicare. He lives in . SUBSTANCE ABUSE HISTORY: Denies drug and alcohol use. PSYCHIATRIC HISTORY: Schizoaffective disorder. ALLERGIES: No known drug allergies. Medical History: There is a history of diabetes, COPD, wheezing, and chronic cough with shortness of breath. Mental Status Examination: This is a male, 36 years old with psychomotor agitation. Mood is irritable and agitated. Affect is guarded and restricted. Thought process disorganized. He denies any suicidal or homicidal thoughts. Insight and judgment is poor. DIAGNOSES: Schizoaffective, bipolar type. Plan: We will go ahead and restart his Seroquel 300 mg nightly. Continue Geodon 20 mg daily. Also, restart his Depakote 500 mg twice a day to stabilize his mood and encourage him to interact appropriately with staff. Medications . I would like to thank, Dr. Aniceto Sepulvead, for this interesting consultation. Chart reviewed. Discussed with staff. Charmaine Victor M.D. DR: REBECCA JOB#: [id number] CC:
[2017-07-26] MEDS ORDERED: D5NS 1000ml IV ONE (15:26)
--- NOTE | 2017-07-26 15:55 | Infectious Diseases Prog Note ---
Assessment/Plan Problems: (1) COPD exacerbation Assessment & Plan: continue doxycycline, inhalers and taper steroids (2) Hyperglycemia due to type 2 diabetes mellitus Assessment & Plan: suspect poor compliance , monitor blood sugurar to keep tight glycemic control between 80-120 (3) Diabetes mellitus Assessment & Plan: recommend tight glycemic control to keep blood glucose between 80-120 Subjective Constitutional: Reports: no symptoms HEENT: Reports: no symptoms Respiratory: Reports: dry cough Breasts: Reports: no symptoms Cardiovascular: Reports: no symptoms Gastrointestinal/Abdominal: Reports: no symptoms Genitourinary: Reports: no symptoms Neurologic: Reports: no symptoms Psychiatric: Reports: no symptoms Allergies: Coded Allergies: No Known Allergies (Unverified , 02/06/15) Objective Vital Signs Last 24 Hour Vital Signs Date Time Temp Pulse Resp B/P (MAP) Pulse Ox O2 Delivery O2 Flow Rate FiO2 07/26/17 15:24 104 20 96 Nasal Cannula 3.0 32 07/26/17 14:38 98.8 07/26/17 14:38 98.8 07/26/17 12:00 98.8 98 18 138/70 95 Room Air 07/26/17 11:10 115 20 98 Nasal Cannula 3.0 32 07/26/17 11:05 114 20 95 Nasal Cannula 3.0 32 07/26/17 08:00 97.7 115 18 140/67 Room Air 07/26/17 07:25 Nasal Cannula 3.0 32 07/26/17 07:25 111 20 98 Nasal Cannula 3.0 32 07/26/17 07:25 98 Nasal Cannula 3.0 32 07/26/17 07:20 110 20 96 Nasal Cannula 3.0 32 07/26/17 04:00 98.1 117 20 114/65 94 07/26/17 03:39 118 20 97 Nasal Cannula 3.0 32 07/26/17 03:29 112 20 94 Nasal Cannula 3.0 32 07/26/17 00:00 97.5 108 21 122/65 95 Nasal Cannula 2.0 07/25/17 23:30 110 20 92 Nasal Cannula 3.0 32 07/25/17 23:23 96 20 93 Nasal Cannula 3.0 32 07/25/17 20:00 97.5 115 22 132/60 92 Room Air 07/25/17 19:35 122 20 91 Nasal Cannula 3.0 32 07/25/17 19:26 111 20 92 Nasal Cannula 3.0 32 07/25/17 19:22 Nasal Cannula 3.0 32 07/25/17 19:22 92 Nasal Cannula 3.0 32 07/25/17 17:20 98.2 87 22 151/99 92 Nasal Cannula 2.0 Height (Feet): 5 Height (Inches): 11.00 Weight (Pounds): 232 General Appearance: WD/WN, no acute distress HEENT: normocephalic, atraumatic, anicteric, mucous membranes moist Respiratory/Chest: chest wall non-tender, no respiratory distress, no accessory muscle use, decreased breath sounds, expiratory wheezing Cardiovascular: normal peripheral pulses, normal rate, regular rhythm, no gallop/murmur Abdomen: normal bowel sounds, soft, non tender, no organomegaly, non distended , no mass Extremities: no cyanosis, no clubbing Skin: no rash, no lesions, no ulcers Laboratory Tests Test 07/26/17 07:20 White Blood Count 14.1 K/UL (4.8-10.8) H Red Blood Count 4.25 M/UL (4.70-6.10) L Hemoglobin 12.5 G/DL (14.2-18.0) L Hematocrit 37.4 % (42.0-52.0) L Mean Corpuscular Volume 88 FL (80-99) Mean Corpuscular Hemoglobin 29.5 PG (27.0-31.0) Mean Corpuscular Hemoglobin Concent 33.5 G/DL (32.0-36.0) Red Cell Distribution Width 12.6 % (11.6-14.8) Platelet Count 221 K/UL (150-450) Mean Platelet Volume 7.6 FL (6.5-10.1) Neutrophils (%) (Auto) 83.8 % (45.0-75.0) H Lymphocytes (%) (Auto) 10.5 % (20.0-45.0) L Monocytes (%) (Auto) 5.3 % (1.0-10.0) Eosinophils (%) (Auto) 0.0 % (0.0-3.0) Basophils (%) (Auto) 0.4 % (0.0-2.0) Sodium Level 131 mEQ/L (135-145) L Potassium Level 4.1 mEQ/L (3.4-4.9) Chloride Level 92 mEQ/L (98-107) L Carbon Dioxide Level 21 mEQ/L (20-30) Anion Gap 18 (5-15) H Blood Urea Nitrogen 20 mg/dL (7-23) Creatinine 0.8 mg/dL (0.7-1.2) Estimat Glomerular Filtration Rate > 60 mL/min (>60) Glucose Level 463 mg/dL (74-106) H Calcium Level 9.1 mg/dL (8.6-10.2) Current Medications Medications (Trade) Dose Ordered Sig/Sofia Route PRN Reason Start Time Stop Time Status Last Admin Dose Admin Acetaminophen (Tylenol) 650 mg Q4H PRN ORAL FEVER>100.5 07/22/17 15:30 08/21/17 15:29 Albuterol/ Ipratropium (DuoNeb 0.5-3(2.5)mg/3ml) 3 ml Q4HRT HHN 07/22/17 23:00 07/27/17 22:59 07/26/17 15:00 Clonidine HCl (Catapres) 0.1 mg Q4H PRN ORAL sbp more than 160 07/22/17 15:30 08/21/17 15:29 Dextrose (Dextrose 50%) STAT PRN IV Hypoglycemia 07/22/17 18:30 08/21/17 18:29 Divalproex Sodium (Depakote ER) 500 mg EVERY 12 HOURS ORAL 07/24/17 21:00 08/23/17 20:59 07/26/17 09:28 Doxycycline Monohydrate (Vibramycin) 100 mg EVERY 12 HOURS ORAL 07/23/17 15:00 07/30/17 14:59 07/26/17 09:28 Heparin Sodium (Porcine) (Heparin 5000 units/ml) 5,000 units EVERY 12 HOURS SUBQ 07/22/17 21:00 08/21/17 20:59 07/26/17 09:28 Insulin Aspart (NovoLOG) BEFORE MEALS AND HS SUBQ 07/22/17 21:00 08/21/17 20:59 07/26/17 11:12 Insulin Aspart (NovoLOG) 45 units NOVOTIAC SUBQ 07/26/17 11:50 08/25/17 11:49 07/26/17 11:13 Insulin Detemir (Levemir) 30 units BID SUBQ 07/26/17 09:00 08/23/17 20:59 07/26/17 09:27 Lorazepam (Ativan 2mg/ml 1ml) 0.5 mg Q4H PRN IV For Anxiety 07/22/17 15:30 07/29/17 15:29 Metformin HCl (Glucophage) 500 mg TIAC ORAL 07/24/17 06:30 08/23/17 06:29 07/26/17 11:11 Methylprednisolone Sodium Succinate (Solu-MEDROL) 40 mg EVERY 8 HOURS IV 07/23/17 22:00 08/21/17 19:29 07/26/17 14:01 Morphine Sulfate (Morphine Sulfate) 2 mg Q4H PRN IVP severe pain 7-10 07/22/17 15:30 07/29/17 15:29 07/26/17 14:34 Nitroglycerin (Ntg) 0.4 mg Q5M X 3 DOSES PRN SL Prn Chest Pain 07/22/17 15:30 08/21/17 15:29 Ondansetron HCl (Zofran) 4 mg Q6H PRN IVP Nausea & Vomiting 07/22/17 15:30 08/21/17 15:29 Pregabalin (Lyrica) 75 mg THREE TIMES A DAY ORAL 07/22/17 19:30 08/21/17 19:29 07/26/17 13:39 Promethazine HCl/ Codeine (Phenergan with Codeine) 5 ml Q6H PRN ORAL cough 07/22/17 15:30 08/21/17 15:29 Quetiapine Fumarate (SEROquel) 300 mg QHS ORAL 07/24/17 21:00 08/23/17 20:59 07/25/17 20:31 Sodium Chloride 1,000 ml @ 60 mls/hr [id number] IV 07/26/17 11:00 08/25/17 10:59 07/26/17 11:13 Theophylline (Bobby-Dur) 100 mg EVERY 12 HOURS ORAL 07/22/17 21:00 08/21/17 20:59 07/26/17 09:28 Ziprasidone (Geodon) 20 mg DAILY ORAL 07/23/17 09:00 08/22/17 08:59 07/26/17 09:28 Zolpidem Tartrate (Ambien) 5 mg HSPRN PRN ORAL Insomnia 07/24/17 21:00 07/31/17 20:59 07/25/17 23:48 Teresita Sewell M.D. Jul 26, 2017 15:55
[2017-07-26 15:57] VITALS: BP 133/72
--- NOTE | 2017-07-26 16:20 | Pulmonology Progress Note ---
Assessment/Plan Problems: (1) COPD exacerbation (2) Lumbar back pain (3) Anxiety (4) Diabetes mellitus Assessment/Plan taper steroids IV abx check sputum sliding scale improving slowly Subjective ROS Limited/Unobtainable: No Constitutional: Reports: no symptoms HEENT: Repors: no symptoms Allergies: Coded Allergies: No Known Allergies (Unverified , 02/06/15) Objective Last 24 Hour Vital Signs Date Time Temp Pulse Resp B/P (MAP) Pulse Ox O2 Delivery O2 Flow Rate FiO2 07/26/17 15:57 97.4 103 21 133/72 97 Room Air 07/26/17 15:35 96 20 100 Nasal Cannula 3.0 32 07/26/17 15:24 104 20 96 Nasal Cannula 3.0 32 07/26/17 14:38 98.8 07/26/17 14:38 98.8 07/26/17 12:00 98.8 98 18 138/70 95 Room Air 07/26/17 11:10 115 20 98 Nasal Cannula 3.0 32 07/26/17 11:05 114 20 95 Nasal Cannula 3.0 32 07/26/17 08:00 97.7 115 18 140/67 Room Air 07/26/17 07:25 Nasal Cannula 3.0 32 07/26/17 07:25 111 20 98 Nasal Cannula 3.0 32 07/26/17 07:25 98 Nasal Cannula 3.0 32 07/26/17 07:20 110 20 96 Nasal Cannula 3.0 32 07/26/17 04:00 98.1 117 20 114/65 94 07/26/17 03:39 118 20 97 Nasal Cannula 3.0 32 07/26/17 03:29 112 20 94 Nasal Cannula 3.0 32 07/26/17 00:00 97.5 108 21 122/65 95 Nasal Cannula 2.0 07/25/17 23:30 110 20 92 Nasal Cannula 3.0 32 07/25/17 23:23 96 20 93 Nasal Cannula 3.0 32 07/25/17 20:00 97.5 115 22 132/60 92 Room Air 07/25/17 19:35 122 20 91 Nasal Cannula 3.0 32 07/25/17 19:26 111 20 92 Nasal Cannula 3.0 32 07/25/17 19:22 Nasal Cannula 3.0 32 07/25/17 19:22 92 Nasal Cannula 3.0 32 07/25/17 17:20 98.2 87 22 151/99 92 Nasal Cannula 2.0 Intake and Output 07/26/17 07/27/17 19:00 07:00 Intake Total 240 ml Balance 240 ml IV Total 240 ml General Appearance: WD/WN HEENT: normocephalic, atraumatic Respiratory/Chest: chest wall non-tender, lungs clear Cardiovascular: normal peripheral pulses, normal rate Abdomen: normal bowel sounds, no organomegaly Extremities: no cyanosis Skin: no rash 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/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 Laboratory Tests 07/26/17 07:20: White Blood Count 14.1H, Red Blood Count 4.25L, Hemoglobin 12.5L, Hematocrit 37.4L, Mean Corpuscular Volume 88, Mean Corpuscular Hemoglobin 29.5, Mean Corpuscular Hemoglobin Concent 33.5, Red Cell Distribution Width 12.6, Platelet Count 221, Mean Platelet Volume 7.6, Neutrophils (%) (Auto) 83.8H, Lymphocytes ( %) (Auto) 10.5L, Monocytes (%) (Auto) 5.3, Eosinophils (%) (Auto) 0.0, Basophils (%) (Auto) 0.4, Sodium Level 131L, Potassium Level 4.1, Chloride Level 92L, Carbon Dioxide Level 21, Anion Gap 18H, Blood Urea Nitrogen 20, Creatinine 0.8, Estimat Glomerular Filtration Rate > 60, Glucose Level 463H, Calcium Level 9.1 Current Medications Medications (Trade) Dose Ordered Sig/Sofia Route PRN Reason Start Time Stop Time Status Last Admin Dose Admin Acetaminophen (Tylenol) 650 mg Q4H PRN ORAL FEVER>100.5 07/22/17 15:30 08/21/17 15:29 Albuterol/ Ipratropium (DuoNeb 0.5-3(2.5)mg/3ml) 3 ml Q4HRT HHN 07/22/17 23:00 07/27/17 22:59 07/26/17 15:00 Clonidine HCl (Catapres) 0.1 mg Q4H PRN ORAL sbp more than 160 07/22/17 15:30 08/21/17 15:29 Dextrose (Dextrose 50%) STAT PRN IV Hypoglycemia 07/22/17 18:30 08/21/17 18:29 Divalproex Sodium (Depakote ER) 500 mg EVERY 12 HOURS ORAL 07/24/17 21:00 08/23/17 20:59 07/26/17 09:28 Doxycycline Monohydrate (Vibramycin) 100 mg EVERY 12 HOURS ORAL 07/23/17 15:00 07/30/17 14:59 07/26/17 09:28 Heparin Sodium (Porcine) (Heparin 5000 units/ml) 5,000 units EVERY 12 HOURS SUBQ 07/22/17 21:00 08/21/17 20:59 07/26/17 09:28 Insulin Aspart (NovoLOG) BEFORE MEALS AND HS SUBQ 07/22/17 21:00 08/21/17 20:59 07/26/17 16:18 Insulin Aspart (NovoLOG) 45 units NOVOTIAC SUBQ 07/26/17 11:50 08/25/17 11:49 07/26/17 16:18 Insulin Detemir (Levemir) 30 units BID SUBQ 07/26/17 09:00 08/23/17 20:59 07/26/17 09:27 Lorazepam (Ativan 2mg/ml 1ml) 0.5 mg Q4H PRN IV For Anxiety 07/22/17 15:30 07/29/17 15:29 Metformin HCl (Glucophage) 500 mg TIAC ORAL 07/24/17 06:30 08/23/17 06:29 07/26/17 16:15 Methylprednisolone Sodium Succinate (Solu-MEDROL) 40 mg EVERY 8 HOURS IV 07/23/17 22:00 08/21/17 19:29 07/26/17 14:01 Morphine Sulfate (Morphine Sulfate) 2 mg Q4H PRN IVP severe pain 7-10 07/22/17 15:30 07/29/17 15:29 07/26/17 14:34 Nitroglycerin (Ntg) 0.4 mg Q5M X 3 DOSES PRN SL Prn Chest Pain 07/22/17 15:30 08/21/17 15:29 Ondansetron HCl (Zofran) 4 mg Q6H PRN IVP Nausea & Vomiting 07/22/17 15:30 08/21/17 15:29 Pregabalin (Lyrica) 75 mg THREE TIMES A DAY ORAL 07/22/17 19:30 08/21/17 19:29 07/26/17 13:39 Promethazine HCl/ Codeine (Phenergan with Codeine) 5 ml Q6H PRN ORAL cough 07/22/17 15:30 08/21/17 15:29 Quetiapine Fumarate (SEROquel) 300 mg QHS ORAL 07/24/17 21:00 08/23/17 20:59 07/25/17 20:31 Sodium Chloride 1,000 ml @ 60 mls/hr [id number] IV 07/26/17 11:00 08/25/17 10:59 07/26/17 11:13 Theophylline (Bobby-Dur) 100 mg EVERY 12 HOURS ORAL 07/22/17 21:00 08/21/17 20:59 07/26/17 09:28 Ziprasidone (Geodon) 20 mg DAILY ORAL 07/23/17 09:00 08/22/17 08:59 07/26/17 09:28 Zolpidem Tartrate (Ambien) 5 mg HSPRN PRN ORAL Insomnia 07/24/17 21:00 07/31/17 20:59 07/25/17 23:48 QUINN SMITH Jul 26, 2017 16:20
[2017-07-26 20:00] VITALS: BP 137/67
--- NOTE | 2017-07-26 21:15 | Progress Note ---
DATE: 07/26/2017 SUBJECTIVE: The patient is a 36-year-old male patient with COPD. Plan: I will continue treatment with Geodon, Depakote, and Ambien and continued followed by psychiatry throughout hospital course. Chart reviewed and discussed with staff. Seen and assessed at the bedside. Charmaine Victor M.D. DR: LEROY JOB#: [id number] CC:
[2017-07-26] MEDS: Zolpidem 5mg tab ORAL PRN (22:43)
[2017-07-26] MEDS: Nitroglycerin Subl 0.4mg tab SL PRN ×3 (23:26→23:42)
--- NOTE | 2017-07-26 23:48 | Nephrology Progress Note ---
Objective Objective Last 24 Hour Vital Signs Date Time Temp Pulse Resp B/P (MAP) Pulse Ox O2 Delivery O2 Flow Rate FiO2 07/26/17 23:42 86/54 07/26/17 23:35 93/55 07/26/17 23:26 110/59 07/26/17 23:14 107 18 97 Nasal Cannula 3.0 32 07/26/17 23:00 105 18 96 Nasal Cannula 3.0 32 07/26/17 23:00 32 07/26/17 20:37 120 18 96 Nasal Cannula 3.0 32 07/26/17 20:07 117 18 Nasal Cannula 3.0 32 07/26/17 20:04 117 18 97 Nasal Cannula 3.0 32 07/26/17 20:04 97 Nasal Cannula 3.0 32 07/26/17 20:04 Nasal Cannula 3.0 32 07/26/17 20:04 32 07/26/17 20:00 98.6 119 21 137/67 99 Nasal Cannula 2.0 07/26/17 15:57 97.4 103 21 133/72 97 Room Air 07/26/17 15:35 96 20 100 Nasal Cannula 3.0 32 07/26/17 15:24 104 20 96 Nasal Cannula 3.0 32 07/26/17 14:38 98.8 07/26/17 14:38 98.8 07/26/17 12:00 98.8 98 18 138/70 95 Room Air 07/26/17 11:10 115 20 98 Nasal Cannula 3.0 32 07/26/17 11:05 114 20 95 Nasal Cannula 3.0 32 07/26/17 08:00 97.7 115 18 140/67 Room Air 07/26/17 07:25 Nasal Cannula 3.0 32 07/26/17 07:25 111 20 98 Nasal Cannula 3.0 32 07/26/17 07:25 98 Nasal Cannula 3.0 32 07/26/17 07:20 110 20 96 Nasal Cannula 3.0 32 07/26/17 04:00 98.1 117 20 114/65 94 07/26/17 03:39 118 20 97 Nasal Cannula 3.0 32 07/26/17 03:29 112 20 94 Nasal Cannula 3.0 32 07/26/17 00:00 97.5 108 21 122/65 95 Nasal Cannula 2.0 Intake and Output 07/26/17 07/27/17 19:00 07:00 Intake Total 420 ml Balance 420 ml IV Total 420 ml Laboratory Tests 07/26/17 07:20: White Blood Count 14.1H, Red Blood Count 4.25L, Hemoglobin 12.5L, Hematocrit 37.4L, Mean Corpuscular Volume 88, Mean Corpuscular Hemoglobin 29.5, Mean Corpuscular Hemoglobin Concent 33.5, Red Cell Distribution Width 12.6, Platelet Count 221, Mean Platelet Volume 7.6, Neutrophils (%) (Auto) 83.8H, Lymphocytes ( %) (Auto) 10.5L, Monocytes (%) (Auto) 5.3, Eosinophils (%) (Auto) 0.0, Basophils (%) (Auto) 0.4, Sodium Level 131L, Potassium Level 4.1, Chloride Level 92L, Carbon Dioxide Level 21, Anion Gap 18H, Blood Urea Nitrogen 20, Creatinine 0.8, Estimat Glomerular Filtration Rate > 60, Glucose Level 463H, Calcium Level 9.1 Height (Feet): 5 Height (Inches): 11.00 Weight (Pounds): 232 FINA W[place] Jul 26, 2017 23:47
[2017-07-27] VITALS: BP 99/48
[2017-07-27] MEDS: Morphine Sulfate 2mg/ml Inj IVP PRN ×6 (02:42→22:43)
[2017-07-27] MEDS: Albuterol/Ipratropium 3ml neb HHN SCH ×5 (03:44→19:00)
[2017-07-27 04:00] VITALS: BP 101/60
[2017-07-27] MEDS: metFORMIN 500mg tab ORAL SCH ×3 (06:41→17:04)
[2017-07-27] MEDS: NovoLOG Insulin Flexpen SUBQ SCH ×7 (06:45→21:02)
[2017-07-27 08:00] VITALS: BP 119/60
--- NOTE | 2017-07-27 08:04 | General Progress Note ---
Assessment/Plan Problem List: (1) Hyperglycemia due to type 2 diabetes mellitus ICD Codes: E11.65 - Type 2 diabetes mellitus with hyperglycemia SNOMED: 855550190901713 (2) COPD exacerbation ICD Codes: J44.1 - Chronic obstructive pulmonary disease with (acute) exacerbation SNOMED: 164804344, [id number] Assessment/Plan diabetes still out of control but IVSM is DC'ed therefore lower insulin requirement is expected continue Levemir 30 units bid reduce Novolog to 30 units ac tid continue sliding scale ac / hs continue Metformin Subjective Allergies: Coded Allergies: No Known Allergies (Unverified , 02/06/15) All Systems: reviewed and negative except above Subjective events noted Objective Last 24 Hour Vital Signs Date Time Temp Pulse Resp B/P (MAP) Pulse Ox O2 Delivery O2 Flow Rate FiO2 07/27/17 07:42 108 18 99 Nasal Cannula 3.0 32 07/27/17 07:39 Nasal Cannula 3.0 32 07/27/17 07:30 102 18 96 Nasal Cannula 3.0 32 07/27/17 07:30 32 07/27/17 07:25 96 Nasal Cannula 3.0 32 07/27/17 04:00 97.9 104 20 101/60 94 Nasal Cannula 2.0 07/27/17 03:47 105 18 96 Nasal Cannula 3.0 32 07/27/17 03:45 104 18 94 Nasal Cannula 3.0 32 07/27/17 03:45 32 07/27/17 00:00 97.7 113 21 99/48 93 Nasal Cannula 2.0 07/26/17 23:42 86/54 07/26/17 23:35 93/55 07/26/17 23:26 110/59 07/26/17 23:14 107 18 97 Nasal Cannula 3.0 32 07/26/17 23:00 105 18 96 Nasal Cannula 3.0 32 07/26/17 23:00 32 07/26/17 20:37 120 18 96 Nasal Cannula 3.0 32 07/26/17 20:07 117 18 Nasal Cannula 3.0 32 07/26/17 20:04 117 18 97 Nasal Cannula 3.0 32 07/26/17 20:04 97 Nasal Cannula 3.0 32 07/26/17 20:04 Nasal Cannula 3.0 32 07/26/17 20:04 32 07/26/17 20:00 98.6 119 21 137/67 99 Nasal Cannula 2.0 07/26/17 15:57 97.4 103 21 133/72 97 Room Air 07/26/17 15:35 96 20 100 Nasal Cannula 3.0 32 07/26/17 15:24 104 20 96 Nasal Cannula 3.0 32 07/26/17 14:38 98.8 07/26/17 14:38 98.8 07/26/17 12:00 98.8 98 18 138/70 95 Room Air 07/26/17 11:10 115 20 98 Nasal Cannula 3.0 32 07/26/17 11:05 114 20 95 Nasal Cannula 3.0 32 Height (Feet): 5 Height (Inches): 11.00 Weight (Pounds): 232 General Appearance: no apparent distress Neck: normal alignment Cardiovascular: normal rate Respiratory/Chest: normal breath sounds Abdomen: normal bowel sounds Pelvis: normal external exam Edema: no edema noted Arm (L), no edema noted Arm (R), no edema noted Leg (L), no edema noted Leg (R), no edema noted Pedal (L), no edema noted Pedal (R), no edema noted Generalized Objective Current Medications Medications (Trade) Dose Ordered Sig/Sofia Route PRN Reason Start Time Stop Time Status Last Admin Dose Admin Acetaminophen (Tylenol) 650 mg Q4H PRN ORAL FEVER>100.5 07/22/17 15:30 08/21/17 15:29 Albuterol/ Ipratropium (DuoNeb 0.5-3(2.5)mg/3ml) 3 ml Q4HRT HHN 07/22/17 23:00 07/27/17 22:59 07/27/17 07:37 Clonidine HCl (Catapres) 0.1 mg Q4H PRN ORAL sbp more than 160 07/22/17 15:30 08/21/17 15:29 Dextrose (Dextrose 50%) STAT PRN IV Hypoglycemia 07/22/17 18:30 08/21/17 18:29 Divalproex Sodium (Depakote ER) 500 mg EVERY 12 HOURS ORAL 07/24/17 21:00 08/23/17 20:59 07/26/17 20:57 Doxycycline Monohydrate (Vibramycin) 100 mg EVERY 12 HOURS ORAL 07/23/17 15:00 07/30/17 14:59 10/1/17 20:57 Heparin Sodium (Porcine) (Heparin 5000 units/ml) 5,000 units EVERY 12 HOURS SUBQ 07/22/17 21:00 08/21/17 20:59 07/26/17 20:59 Insulin Aspart (NovoLOG) BEFORE MEALS AND HS SUBQ 07/22/17 21:00 08/21/17 20:59 07/27/17 06:45 Insulin Aspart (NovoLOG) 45 units NOVOTIAC SUBQ 07/26/17 11:50 08/25/17 11:49 07/27/17 06:46 Insulin Detemir (Levemir) 30 units BID SUBQ 07/26/17 09:00 08/23/17 20:59 07/26/17 18:15 Lorazepam (Ativan 2mg/ml 1ml) 0.5 mg Q4H PRN IV For Anxiety 07/22/17 15:30 07/29/17 15:29 Metformin HCl (Glucophage) 500 mg TIAC ORAL 07/24/17 06:30 08/23/17 06:29 07/27/17 06:41 Morphine Sulfate (Morphine Sulfate) 2 mg Q4H PRN IVP severe pain 7-10 07/22/17 15:30 07/29/17 15:29 07/27/17 06:42 Nitroglycerin (Ntg) 0.4 mg Q5M X 3 DOSES PRN SL Prn Chest Pain 07/22/17 15:30 08/21/17 15:29 07/26/17 23:42 Ondansetron HCl (Zofran) 4 mg Q6H PRN IVP Nausea & Vomiting 07/22/17 15:30 08/21/17 15:29 Pregabalin (Lyrica) 75 mg THREE TIMES A DAY ORAL 07/22/17 19:30 08/21/17 19:29 07/26/17 18:09 Promethazine HCl/ Codeine (Phenergan with Codeine) 5 ml Q6H PRN ORAL cough 07/22/17 15:30 08/21/17 15:29 Quetiapine Fumarate (SEROquel) 300 mg QHS ORAL 07/24/17 21:00 08/23/17 20:59 07/26/17 20:57 Theophylline (Bobby-Dur) 100 mg EVERY 12 HOURS ORAL 07/22/17 21:00 08/21/17 20:59 07/26/17 20:57 Ziprasidone (Geodon) 20 mg DAILY ORAL 07/23/17 09:00 08/22/17 08:59 07/26/17 09:28 Zolpidem Tartrate (Ambien) 5 mg HSPRN PRN ORAL Insomnia 07/24/17 21:00 07/31/17 20:59 07/26/17 22:43 Item Value Date Time Bedside Blood Glucose 392 mg/dl H 07/27/17 0646 Bedside Blood Glucose 380 mg/dl H 07/26/17 2100 Bedside Blood Glucose 319 mg/dl H 07/26/17 1815 Bedside Blood Glucose 401 mg/dl H 07/26/17 1113 Bedside Blood Glucose 455 mg/dl H 07/26/17 0927 Bedside Blood Glucose 455 mg/dl H 07/26/17 0630 ORALIA VALENCIA Jul 27, 2017 08:04
--- NOTE | 2017-07-27 08:20 | General Progress Note ---
Assessment/Plan Assessment/Plan (1) Chiari malformation type II (2) Degenerative disc disease, cervical (3) Lumbar degenerative disc disease (4) Arthritis, lumbar spine (5) Peripheral neuropathy (6) Hydrocephalus (7) Diabetes mellitus Pt will be continued on Morphine as needed. Pt was d/w Dr. Napier and he concurred. Subjective Date patient seen: Jul 27, 2017 Time patient seen: 07:45 - am Allergies: Coded Allergies: No Known Allergies (Unverified , 02/06/15) Subjective Constitutional: Reports: weakness, Denies: chills, diaphoresis, fever, malaise , no symptoms, other HEENT: Denies: blurred vision, double vision, ear discharge, ear pain, eye pain , mouth pain, mouth swelling, no symptoms, nose congestion, nose pain, other, tearing, throat pain, throat swelling Cardiovascular: Denies: chest pain, edema, irregular heart rate, lightheadedness, no symptoms, other, palpitations, syncope Respiratory: Denies: SOB at rest, SOB with excertion, cough, no symptoms, orthopnea, other, shortness of breath, sputum, stridor, wheezing Gastrointestinal/Abdominal: Denies: abdomen distended, abdominal pain, black stools, blood in stool, constipated, diarrhea, difficulty swallowing, nausea, no symptoms, other, poor appetite, poor fluid intake, rectal bleeding, tarry stools, vomiting Genitourinary: Denies: burning, discharge, flank pain, frequency, hematuria, incontinence, no symptoms, other, pain, urgency Neurologic/Psychiatric: Reports: headache, numbness, tingling, weakness, Denies : anxiety, depressed, emotional problems, no symptoms, other, paresthesia, pre- existing deficit, seizure, tremors Endocrine: Denies: excessive sweating, flushing, increased hunger, increased thirst, increased urine, intolerance to cold, intolerance to heat, no symptoms, other, unexplained weight gain, unexplained weight loss Hematologic/Lymphatic: Denies: anemia, easy bleeding, easy bruising, no symptoms, other Subjective Patient reports that his pain is at a stable and tolerated on the morphine. Objective Last 24 Hour Vital Signs Date Time Temp Pulse Resp B/P (MAP) Pulse Ox O2 Delivery O2 Flow Rate FiO2 07/27/17 07:42 108 18 99 Nasal Cannula 3.0 32 07/27/17 07:39 Nasal Cannula 3.0 32 07/27/17 07:30 102 18 96 Nasal Cannula 3.0 32 07/27/17 07:30 32 07/27/17 07:25 96 Nasal Cannula 3.0 32 07/27/17 04:00 97.9 104 20 101/60 94 Nasal Cannula 2.0 07/27/17 03:47 105 18 96 Nasal Cannula 3.0 32 07/27/17 03:45 104 18 94 Nasal Cannula 3.0 32 07/27/17 03:45 32 07/27/17 00:00 97.7 113 21 99/48 93 Nasal Cannula 2.0 07/26/17 23:42 86/54 07/26/17 23:35 93/55 07/26/17 23:26 110/59 07/26/17 23:14 107 18 97 Nasal Cannula 3.0 32 07/26/17 23:00 105 18 96 Nasal Cannula 3.0 32 07/26/17 23:00 32 07/26/17 20:37 120 18 96 Nasal Cannula 3.0 32 07/26/17 20:07 117 18 Nasal Cannula 3.0 32 07/26/17 20:04 117 18 97 Nasal Cannula 3.0 32 07/26/17 20:04 97 Nasal Cannula 3.0 32 07/26/17 20:04 Nasal Cannula 3.0 32 07/26/17 20:04 32 07/26/17 20:00 98.6 119 21 137/67 99 Nasal Cannula 2.0 07/26/17 15:57 97.4 103 21 133/72 97 Room Air 07/26/17 15:35 96 20 100 Nasal Cannula 3.0 32 07/26/17 15:24 104 20 96 Nasal Cannula 3.0 32 07/26/17 14:38 98.8 07/26/17 14:38 98.8 07/26/17 12:00 98.8 98 18 138/70 95 Room Air 07/26/17 11:10 115 20 98 Nasal Cannula 3.0 32 07/26/17 11:05 114 20 95 Nasal Cannula 3.0 32 Height (Feet): 5 Height (Inches): 11.00 Weight (Pounds): 232 Objective General Appearance: no apparent distress, alert EENT: normal ENT inspection, TMs normal Neck: supple, limited range of motion, muscle spasm Cardiovascular: normal rate, regular rhythm Respiratory/Chest: decreased breath sounds Abdomen: non tender, soft Extremities: non-tender Edema: no edema noted Arm (L), no edema noted Arm (R), no edema noted Leg (L), no edema noted Leg (R), no edema noted Pedal (L), no edema noted Pedal (R), no edema noted Generalized Neurologic: alert, oriented x 3 Skin: warm/dry TREE SINGLETON Jul 27, 2017 08:20
[2017-07-27] MEDS: Depakote ER 500mg tab ORAL SCH ×2 (08:29→20:57)
[2017-07-27] MEDS: Theophylline ER 100mg ORAL SCH ×2 (08:29→20:58)
[2017-07-27] MEDS: Lyrica 75mg cap ORAL SCH ×3 (08:29→17:56)
[2017-07-27] MEDS: Ziprasidone 20mg cap ORAL SCH (08:30)
--- NOTE | 2017-07-27 08:31 | Progress Note ---
Subjective: The patient is a 36-year-old male patient with COPD, diagnosis of bipolar II . Plan: Treat him with Geodon 40 mg daily to stabilize his mood and Ambien for insomnia . Chart reviewed and discussed with staff. Seen and assessed at the bedside. Charmaine Victor M.D. DR: DUY JOB#: [id number] CC:
[2017-07-27] MEDS: Heparin 5000 units/ml inj SUBQ SCH ×2 (08:32→20:58)
--- NOTE | 2017-07-27 08:32 | Progress Note ---
DATE: 07/24/2017 PSYCHOTHERAPY CONSULTATION PROGRESS NOTE TREATING ATTENDING PHYSICIAN: Ancieto Sepulveda D.O. Subjective: The patient is a 36-year-old male patient diagnosed with schizoaffective disorder, bipolar type. The patient has been irritable and agitated. He states that he is concerned about 00:30. Plan: This clinician assessed the patient. Provided the patient with reality orientation and supportive psychotherapy. Encouraging the patient to participate in treatment milieu. Continue with medication management and behavioral management. This clinician has reviewed the patient's chart and discussed the treatment with the nursing staff. Juan Chinchilla PsyD. DR: EDMAR JOB#: [id number] CC:
[2017-07-27 08:44] LABS: BASOPHILS % (AUTO) 0.6 % (0.0-2.0); EOSINOPHILS % (AUTO) 0.1 % (0.0-3.0); LYMPHOCYTES % (AUTO) 31.9 % (20.0-45.0); MEAN CORPUSCULAR HEMOGLOBIN 30.1 PG (27.0-31.0); MEAN CORPUSCULAR HGB CONC 34.5 G/DL (32.0-36.0); MEAN CORPUSCULAR VOLUME 87 FL (80-99); MEAN PLATELET VOLUME 7.7 FL (6.5-10.1); MONOCYTES % (AUTO) 5.4 % (1.0-10.0); PLATELET COUNT 209 K/UL (150-450); RED BLOOD COUNT 4.38 M/UL (4.70-6.10); RED CELL DISTRIBUTION WIDTH 12.8 % (11.6-14.8); WHITE BLOOD COUNT 14.6 K/UL (4.8-10.8)
[2017-07-27 08:58] LABS: TROPONIN I < 0.30 ng/mL (<=0.30)
[2017-07-27 09:00] LABS: ANION GAP 14 (5-15); CARBON DIOXIDE 25 mEQ/L (20-30); CHLORIDE 95 mEQ/L (98-107); CREATININE 0.9 mg/dL (0.7-1.2); GLOMERULAR FILTRATION RATE > 60 mL/min (>60); HEMOLYSIS 2; POTASSIUM 3.7 mEQ/L (3.4-4.9); SODIUM 134 mEQ/L (135-145)
[2017-07-27] MEDS ORDERED: Solu-MEDROL 40mg Inj IVP SCH (09:00)
[2017-07-27] MEDS: Levemir Flexpen SUBQ SCH ×2 (09:41→17:58)
[2017-07-27 12:00] VITALS: BP 107/58
--- NOTE | 2017-07-27 13:53 | General Progress Note ---
Assessment/Plan Problem List: (1) Diabetes mellitus ICD Codes: E11.9 - Diabetes mellitus SNOMED: 64371556 (2) Generalized weakness ICD Codes: R53.1 - Weakness SNOMED: 46045404 (3) COPD exacerbation ICD Codes: J44.1 - Chronic obstructive pulmonary disease with (acute) exacerbation SNOMED: 135102498, 887114020 (4) Hyperglycemia due to type 2 diabetes mellitus ICD Codes: E11.65 - Type 2 diabetes mellitus with hyperglycemia SNOMED: 989734956073233 (5) Opiate dependence ICD Codes: F11.20 - Opioid dependence SNOMED: 86343661 (6) Anxiety ICD Codes: F41.9 - Anxiety disorder, unspecified; Z68.41 - Body mass index (BMI ) 40.0-44.9, adult SNOMED: 88995120 Status: stable, progressing, tolerating diet Assessment/Plan o2 pulm tx abx ot pt diet cbc bmp am ltach eval transfer Subjective Constitutional: Reports: weakness Respiratory: Reports: shortness of breath Allergies: Coded Allergies: No Known Allergies (Unverified , 02/06/15) All Systems: reviewed and negative except above Subjective o2 nc sleepy Objective Last 24 Hour Vital Signs Date Time Temp Pulse Resp B/P (MAP) Pulse Ox O2 Delivery O2 Flow Rate FiO2 07/27/17 12:00 98.2 119 20 107/58 95 Nasal Cannula 2.0 07/27/17 11:51 105 16 99 Nasal Cannula 3.0 32 07/27/17 11:40 32 07/27/17 11:40 102 18 96 Nasal Cannula 3.0 32 07/27/17 11:11 97.9 07/27/17 09:28 97.9 07/27/17 08:00 97.5 113 20 119/60 94 Nasal Cannula 2.0 07/27/17 07:42 108 18 99 Nasal Cannula 3.0 32 07/27/17 07:39 Nasal Cannula 3.0 32 07/27/17 07:30 102 18 96 Nasal Cannula 3.0 32 07/27/17 07:30 32 07/27/17 07:25 96 Nasal Cannula 3.0 32 07/27/17 04:00 97.9 104 20 101/60 94 Nasal Cannula 2.0 07/27/17 03:47 105 18 96 Nasal Cannula 3.0 32 07/27/17 03:45 104 18 94 Nasal Cannula 3.0 32 07/27/17 03:45 32 07/27/17 00:00 97.7 113 21 99/48 93 Nasal Cannula 2.0 07/26/17 23:42 86/54 07/26/17 23:35 93/55 07/26/17 23:26 110/59 07/26/17 23:14 107 18 97 Nasal Cannula 3.0 32 07/26/17 23:00 105 18 96 Nasal Cannula 3.0 32 07/26/17 23:00 32 07/26/17 20:37 120 18 96 Nasal Cannula 3.0 32 07/26/17 20:07 117 18 Nasal Cannula 3.0 32 07/26/17 20:04 117 18 97 Nasal Cannula 3.0 32 07/26/17 20:04 97 Nasal Cannula 3.0 32 07/26/17 20:04 Nasal Cannula 3.0 32 07/26/17 20:04 32 07/26/17 20:00 98.6 119 21 137/67 99 Nasal Cannula 2.0 07/26/17 15:57 97.4 103 21 133/72 97 Room Air 07/26/17 15:35 96 20 100 Nasal Cannula 3.0 32 07/26/17 15:24 104 20 96 Nasal Cannula 3.0 32 07/26/17 14:38 98.8 Laboratory Tests 07/27/17 08:35: White Blood Count 14.6H, Red Blood Count 4.38L, Hemoglobin 13.2L, Hematocrit 38.3L, Mean Corpuscular Volume 87, Mean Corpuscular Hemoglobin 30.1, Mean Corpuscular Hemoglobin Concent 34.5, Red Cell Distribution Width 12.8, Platelet Count 209, Mean Platelet Volume 7.7, Neutrophils (%) (Auto) 62.0, Lymphocytes (% ) (Auto) 31.9, Monocytes (%) (Auto) 5.4, Eosinophils (%) (Auto) 0.1, Basophils ( %) (Auto) 0.6, Sodium Level 134L, Potassium Level 3.7, Chloride Level 95L, Carbon Dioxide Level 25, Anion Gap 14, Blood Urea Nitrogen 23, Creatinine 0.9, Estimat Glomerular Filtration Rate > 60, Glucose Level 285#H, Calcium Level 9.0 , Troponin I < 0.30 Height (Feet): 5 Height (Inches): 11.00 Weight (Pounds): 232 General Appearance: lethargic EENT: normal ENT inspection Neck: normal alignment Cardiovascular: normal peripheral pulses, normal rate, regular rhythm Respiratory/Chest: chest wall non-tender, lungs clear, decreased breath sounds Abdomen: normal bowel sounds, non tender, soft Extremities: normal inspection Edema: no edema noted Arm (L), no edema noted Arm (R), no edema noted Leg (L), no edema noted Leg (R), no edema noted Pedal (L), no edema noted Pedal (R), no edema noted Generalized Neurologic: responsive, motor weakness Skin: normal pigmentation, warm/dry INDU KEEN Jul 27, 2017 13:53
[2017-07-27 16:00] VITALS: BP 120/61
--- NOTE | 2017-07-27 18:06 | Infectious Diseases Prog Note ---
Assessment/Plan Problems: (1) COPD exacerbation Assessment & Plan: improving on doxycycline, inhalers and steroids, recommend pulmonary function test as an out patient, , taper steroids (2) Hyperglycemia due to type 2 diabetes mellitus Assessment & Plan: suspect poor compliance , monitor blood sugurar to keep tight glycemic control between 80-120 (3) Diabetes mellitus Assessment & Plan: recommend tight glycemic control to keep blood glucose between 80-120 Subjective Constitutional: Reports: no symptoms HEENT: Reports: no symptoms Respiratory: Reports: no symptoms Breasts: Reports: no symptoms Cardiovascular: Reports: no symptoms Gastrointestinal/Abdominal: Reports: no symptoms Genitourinary: Reports: no symptoms Neurologic: Reports: no symptoms Psychiatric: Reports: no symptoms Skin: Reports: no symptoms Endocrine: Reports: no symptoms Hematologic: Reports: no symptoms Allergies: Coded Allergies: No Known Allergies (Unverified , 02/06/15) Objective Vital Signs Last 24 Hour Vital Signs Date Time Temp Pulse Resp B/P (MAP) Pulse Ox O2 Delivery O2 Flow Rate FiO2 07/27/17 16:00 97.9 120 21 120/61 95 Nasal Cannula 2.0 07/27/17 15:28 101 16 Nasal Cannula 3.0 32 07/27/17 15:20 99 18 96 Nasal Cannula 3.0 32 07/27/17 15:20 32 07/27/17 15:17 98.2 07/27/17 12:00 98.2 119 20 107/58 95 Nasal Cannula 2.0 07/27/17 11:51 105 16 99 Nasal Cannula 3.0 32 07/27/17 11:40 32 07/27/17 11:40 102 18 96 Nasal Cannula 3.0 32 07/27/17 09:28 97.9 07/27/17 08:00 97.5 113 20 119/60 94 Nasal Cannula 2.0 07/27/17 07:42 108 18 99 Nasal Cannula 3.0 32 07/27/17 07:39 Nasal Cannula 3.0 32 07/27/17 07:30 102 18 96 Nasal Cannula 3.0 32 07/27/17 07:30 32 07/27/17 07:25 96 Nasal Cannula 3.0 32 07/27/17 04:00 97.9 104 20 101/60 94 Nasal Cannula 2.0 07/27/17 03:47 105 18 96 Nasal Cannula 3.0 32 07/27/17 03:45 104 18 94 Nasal Cannula 3.0 32 07/27/17 03:45 32 07/27/17 00:00 97.7 113 21 99/48 93 Nasal Cannula 2.0 07/26/17 23:42 86/54 07/26/17 23:35 93/55 07/26/17 23:26 110/59 07/26/17 23:14 107 18 97 Nasal Cannula 3.0 32 07/26/17 23:00 105 18 96 Nasal Cannula 3.0 32 07/26/17 23:00 32 07/26/17 20:37 120 18 96 Nasal Cannula 3.0 32 07/26/17 20:07 117 18 Nasal Cannula 3.0 32 07/26/17 20:04 117 18 97 Nasal Cannula 3.0 32 07/26/17 20:04 97 Nasal Cannula 3.0 32 07/26/17 20:04 Nasal Cannula 3.0 32 07/26/17 20:04 32 07/26/17 20:00 98.6 119 21 137/67 99 Nasal Cannula 2.0 Height (Feet): 5 Height (Inches): 11.00 Weight (Pounds): 232 General Appearance: WD/WN, no acute distress HEENT: normocephalic, atraumatic, anicteric Respiratory/Chest: chest wall non-tender, no respiratory distress, no accessory muscle use, respiratory distress, decreased breath sounds, expiratory wheezing Cardiovascular: normal peripheral pulses, normal rate, regular rhythm, no gallop/murmur, no JVD Abdomen: normal bowel sounds, soft, non tender, no organomegaly, non distended , no mass Extremities: no cyanosis, no clubbing Skin: no rash, no lesions, no ulcers Neurologic/Psychiatric: alert, oriented x 3 Laboratory Tests Test 07/27/17 08:35 White Blood Count 14.6 K/UL (4.8-10.8) H Red Blood Count 4.38 M/UL (4.70-6.10) L Hemoglobin 13.2 G/DL (14.2-18.0) L Hematocrit 38.3 % (42.0-52.0) L Mean Corpuscular Volume 87 FL (80-99) Mean Corpuscular Hemoglobin 30.1 PG (27.0-31.0) Mean Corpuscular Hemoglobin Concent 34.5 G/DL (32.0-36.0) Red Cell Distribution Width 12.8 % (11.6-14.8) Platelet Count 209 K/UL (150-450) Mean Platelet Volume 7.7 FL (6.5-10.1) Neutrophils (%) (Auto) 62.0 % (45.0-75.0) Lymphocytes (%) (Auto) 31.9 % (20.0-45.0) Monocytes (%) (Auto) 5.4 % (1.0-10.0) Eosinophils (%) (Auto) 0.1 % (0.0-3.0) Basophils (%) (Auto) 0.6 % (0.0-2.0) Sodium Level 134 mEQ/L (135-145) L Potassium Level 3.7 mEQ/L (3.4-4.9) Chloride Level 95 mEQ/L (98-107) L Carbon Dioxide Level 25 mEQ/L (20-30) Anion Gap 14 (5-15) Blood Urea Nitrogen 23 mg/dL (7-23) Creatinine 0.9 mg/dL (0.7-1.2) Estimat Glomerular Filtration Rate > 60 mL/min (>60) Glucose Level 285 mg/dL (74-106) #H Calcium Level 9.0 mg/dL (8.6-10.2) Troponin I < 0.30 ng/mL (<=0.30) Current Medications Medications (Trade) Dose Ordered Sig/Sofia Route PRN Reason Start Time Stop Time Status Last Admin Dose Admin Acetaminophen (Tylenol) 650 mg Q4H PRN ORAL FEVER>100.5 07/22/17 15:30 08/21/17 15:29 Albuterol/ Ipratropium (DuoNeb 0.5-3(2.5)mg/3ml) 3 ml Q4HRT HHN 07/22/17 23:00 07/27/17 22:59 07/27/17 15:27 Clonidine HCl (Catapres) 0.1 mg Q4H PRN ORAL sbp more than 160 07/22/17 15:30 08/21/17 15:29 Dextrose (Dextrose 50%) STAT PRN IV Hypoglycemia 07/22/17 18:30 08/21/17 18:29 Divalproex Sodium (Depakote ER) 500 mg EVERY 12 HOURS ORAL 07/24/17 21:00 08/23/17 20:59 07/27/17 08:29 Doxycycline Monohydrate (Vibramycin) 100 mg EVERY 12 HOURS ORAL 07/23/17 15:00 07/30/17 14:59 07/27/17 08:29 Heparin Sodium (Porcine) (Heparin 5000 units/ml) 5,000 units EVERY 12 HOURS SUBQ 07/22/17 21:00 08/21/17 20:59 07/26/17 20:59 Insulin Aspart (NovoLOG) BEFORE MEALS AND HS SUBQ 07/22/17 21:00 08/21/17 20:59 07/27/17 17:07 Insulin Aspart (NovoLOG) 30 units NOVOTIAC SUBQ 07/27/17 11:50 08/26/17 11:49 07/27/17 17:09 Insulin Detemir (Levemir) 30 units BID SUBQ 07/26/17 09:00 08/23/17 20:59 07/27/17 17:58 Lorazepam (Ativan 2mg/ml 1ml) 0.5 mg Q4H PRN IV For Anxiety 07/22/17 15:30 07/29/17 15:29 Metformin HCl (Glucophage) 500 mg TIAC ORAL 07/24/17 06:30 08/23/17 06:29 07/27/17 17:04 Morphine Sulfate (Morphine Sulfate) 2 mg Q4H PRN IVP severe pain 7-10 07/27/17 11:30 08/03/17 23:59 07/27/17 14:47 Nitroglycerin (Ntg) 0.4 mg Q5M X 3 DOSES PRN SL Prn Chest Pain 07/22/17 15:30 08/21/17 15:29 07/26/17 23:42 Ondansetron HCl (Zofran) 4 mg Q6H PRN IVP Nausea & Vomiting 07/22/17 15:30 08/21/17 15:29 Pregabalin (Lyrica) 150 mg THREE TIMES A DAY ORAL 07/27/17 18:00 08/26/17 17:59 07/27/17 17:56 Promethazine HCl/ Codeine (Phenergan with Codeine) 5 ml Q6H PRN ORAL cough 07/22/17 15:30 08/21/17 15:29 Quetiapine Fumarate (SEROquel) 300 mg QHS ORAL 07/24/17 21:00 08/23/17 20:59 07/26/17 20:57 Theophylline (Bobby-Dur) 100 mg EVERY 12 HOURS ORAL 07/22/17 21:00 08/21/17 20:59 07/27/17 08:29 Ziprasidone (Geodon) 20 mg DAILY ORAL 07/23/17 09:00 08/22/17 08:59 07/27/17 08:30 Zolpidem Tartrate (Ambien) 5 mg HSPRN PRN ORAL Insomnia 07/24/17 21:00 07/31/17 20:59 07/26/17 22:43 Teresita Sewell M.D. Jul 27, 2017 18:06
--- NOTE | 2017-07-27 18:32 | Pulmonology Progress Note ---
Assessment/Plan Problems: (1) COPD exacerbation (2) Lumbar back pain (3) Anxiety (4) Diabetes mellitus Assessment/Plan taper steroids IV abx check sputum sliding scale improving slowly Subjective ROS Limited/Unobtainable: No Constitutional: Reports: no symptoms HEENT: Repors: no symptoms Respiratory: Reports: no symptoms Allergies: Coded Allergies: No Known Allergies (Unverified , 02/06/15) Objective Last 24 Hour Vital Signs Date Time Temp Pulse Resp B/P (MAP) Pulse Ox O2 Delivery O2 Flow Rate FiO2 07/27/17 16:00 97.9 120 21 120/61 95 Nasal Cannula 2.0 07/27/17 15:28 101 16 Nasal Cannula 3.0 32 07/27/17 15:20 99 18 96 Nasal Cannula 3.0 32 07/27/17 15:20 32 07/27/17 15:17 98.2 07/27/17 12:00 98.2 119 20 107/58 95 Nasal Cannula 2.0 07/27/17 11:51 105 16 99 Nasal Cannula 3.0 32 07/27/17 11:40 32 07/27/17 11:40 102 18 96 Nasal Cannula 3.0 32 07/27/17 09:28 97.9 07/27/17 08:00 97.5 113 20 119/60 94 Nasal Cannula 2.0 07/27/17 07:42 108 18 99 Nasal Cannula 3.0 32 07/27/17 07:39 Nasal Cannula 3.0 32 07/27/17 07:30 102 18 96 Nasal Cannula 3.0 32 07/27/17 07:30 32 07/27/17 07:25 96 Nasal Cannula 3.0 32 07/27/17 04:00 97.9 104 20 101/60 94 Nasal Cannula 2.0 07/27/17 03:47 105 18 96 Nasal Cannula 3.0 32 07/27/17 03:45 104 18 94 Nasal Cannula 3.0 32 07/27/17 03:45 32 07/27/17 00:00 97.7 113 21 99/48 93 Nasal Cannula 2.0 07/26/17 23:42 86/54 07/26/17 23:35 93/55 07/26/17 23:26 110/59 07/26/17 23:14 107 18 97 Nasal Cannula 3.0 32 07/26/17 23:00 105 18 96 Nasal Cannula 3.0 32 07/26/17 23:00 32 07/26/17 20:37 120 18 96 Nasal Cannula 3.0 32 07/26/17 20:07 117 18 Nasal Cannula 3.0 32 07/26/17 20:04 117 18 97 Nasal Cannula 3.0 32 07/26/17 20:04 97 Nasal Cannula 3.0 32 07/26/17 20:04 Nasal Cannula 3.0 32 07/26/17 20:04 32 07/26/17 20:00 98.6 119 21 137/67 99 Nasal Cannula 2.0 Objective General Appearance: WD/WN HEENT: normocephalic, atraumatic Respiratory/Chest: chest wall non-tender, lungs clear Cardiovascular: normal peripheral pulses, normal rate Abdomen: soft, non tender Extremities: no cyanosis Skin: no rash 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, no motor/sensory deficits Lymphatic: no neck adenopathy Laboratory Tests 07/27/17 08:35: White Blood Count 14.6H, Red Blood Count 4.38L, Hemoglobin 13.2L, Hematocrit 38.3L, Mean Corpuscular Volume 87, Mean Corpuscular Hemoglobin 30.1, Mean Corpuscular Hemoglobin Concent 34.5, Red Cell Distribution Width 12.8, Platelet Count 209, Mean Platelet Volume 7.7, Neutrophils (%) (Auto) 62.0, Lymphocytes (% ) (Auto) 31.9, Monocytes (%) (Auto) 5.4, Eosinophils (%) (Auto) 0.1, Basophils ( %) (Auto) 0.6, Sodium Level 134L, Potassium Level 3.7, Chloride Level 95L, Carbon Dioxide Level 25, Anion Gap 14, Blood Urea Nitrogen 23, Creatinine 0.9, Estimat Glomerular Filtration Rate > 60, Glucose Level 285#H, Calcium Level 9.0 , Troponin I < 0.30 Current Medications Medications (Trade) Dose Ordered Sig/Sofia Route PRN Reason Start Time Stop Time Status Last Admin Dose Admin Acetaminophen (Tylenol) 650 mg Q4H PRN ORAL FEVER>100.5 07/22/17 15:30 08/21/17 15:29 Albuterol/ Ipratropium (DuoNeb 0.5-3(2.5)mg/3ml) 3 ml Q4HRT HHN 07/22/17 23:00 07/27/17 22:59 07/27/17 15:27 Clonidine HCl (Catapres) 0.1 mg Q4H PRN ORAL sbp more than 160 07/22/17 15:30 08/21/17 15:29 Dextrose (Dextrose 50%) STAT PRN IV Hypoglycemia 07/22/17 18:30 08/21/17 18:29 Divalproex Sodium (Depakote ER) 500 mg EVERY 12 HOURS ORAL 07/24/17 21:00 08/23/17 20:59 07/27/17 08:29 Doxycycline Monohydrate (Vibramycin) 100 mg EVERY 12 HOURS ORAL 07/23/17 15:00 07/30/17 14:59 07/27/17 08:29 Heparin Sodium (Porcine) (Heparin 5000 units/ml) 5,000 units EVERY 12 HOURS SUBQ 07/22/17 21:00 08/21/17 20:59 07/26/17 20:59 Insulin Aspart (NovoLOG) BEFORE MEALS AND HS SUBQ 07/22/17 21:00 08/21/17 20:59 07/27/17 17:07 Insulin Aspart (NovoLOG) 30 units NOVOTIAC SUBQ 07/27/17 11:50 08/26/17 11:49 07/27/17 17:09 Insulin Detemir (Levemir) 30 units BID SUBQ 07/26/17 09:00 08/23/17 20:59 07/27/17 17:58 Lorazepam (Ativan 2mg/ml 1ml) 0.5 mg Q4H PRN IV For Anxiety 07/22/17 15:30 07/29/17 15:29 Metformin HCl (Glucophage) 500 mg TIAC ORAL 07/24/17 06:30 08/23/17 06:29 07/27/17 17:04 Morphine Sulfate (Morphine Sulfate) 2 mg Q4H PRN IVP severe pain 7-10 07/27/17 11:30 08/03/17 23:59 07/27/17 14:47 Nitroglycerin (Ntg) 0.4 mg Q5M X 3 DOSES PRN SL Prn Chest Pain 07/22/17 15:30 08/21/17 15:29 07/26/17 23:42 Ondansetron HCl (Zofran) 4 mg Q6H PRN IVP Nausea & Vomiting 07/22/17 15:30 08/21/17 15:29 Pregabalin (Lyrica) 150 mg THREE TIMES A DAY ORAL 07/27/17 18:00 08/26/17 17:59 07/27/17 17:56 Promethazine HCl/ Codeine (Phenergan with Codeine) 5 ml Q6H PRN ORAL cough 07/22/17 15:30 08/21/17 15:29 Quetiapine Fumarate (SEROquel) 300 mg QHS ORAL 07/24/17 21:00 08/23/17 20:59 07/26/17 20:57 Theophylline (Bobby-Dur) 100 mg EVERY 12 HOURS ORAL 07/22/17 21:00 08/21/17 20:59 07/27/17 08:29 Ziprasidone (Geodon) 20 mg DAILY ORAL 07/23/17 09:00 08/22/17 08:59 07/27/17 08:30 Zolpidem Tartrate (Ambien) 5 mg HSPRN PRN ORAL Insomnia 07/24/17 21:00 07/31/17 20:59 07/26/17 22:43 QUINN SMITH Jul 27, 2017 18:32
[2017-07-27 20:00] VITALS: BP 116/71
--- NOTE | 2017-07-27 22:57 | Nephrology Progress Note ---
Assessment/Plan Problem List: (1) Diabetes mellitus (2) Anxiety (3) Generalized weakness (4) Leukocytosis (5) COPD exacerbation Plan Continue current treatment plan Free water restriction Strict glycemic control Monitor lytes, correct prn O2 therapy prn Pain management prn Objective Objective Last 24 Hour Vital Signs Date Time Temp Pulse Resp B/P (MAP) Pulse Ox O2 Delivery O2 Flow Rate FiO2 07/27/17 22:01 20 07/27/17 22:00 20 07/27/17 20:00 98.4 123 21 116/71 94 Room Air 07/27/17 19:30 Nasal Cannula 2.0 28 07/27/17 19:30 95 Nasal Cannula 2.0 28 07/27/17 19:16 97.9 07/27/17 18:55 97.9 07/27/17 16:00 97.9 120 21 120/61 95 Nasal Cannula 2.0 07/27/17 15:28 101 16 Nasal Cannula 3.0 32 07/27/17 15:20 99 18 96 Nasal Cannula 3.0 32 07/27/17 15:20 32 07/27/17 12:00 98.2 119 20 107/58 95 Nasal Cannula 2.0 07/27/17 11:51 105 16 99 Nasal Cannula 3.0 32 07/27/17 11:40 32 07/27/17 11:40 102 18 96 Nasal Cannula 3.0 32 07/27/17 09:28 97.9 07/27/17 08:00 97.5 113 20 119/60 94 Nasal Cannula 2.0 07/27/17 07:42 108 18 99 Nasal Cannula 3.0 32 07/27/17 07:39 Nasal Cannula 3.0 32 07/27/17 07:30 102 18 96 Nasal Cannula 3.0 32 07/27/17 07:30 32 07/27/17 07:25 96 Nasal Cannula 3.0 32 07/27/17 04:00 97.9 104 20 101/60 94 Nasal Cannula 2.0 07/27/17 03:47 105 18 96 Nasal Cannula 3.0 32 07/27/17 03:45 104 18 94 Nasal Cannula 3.0 32 07/27/17 03:45 32 07/27/17 00:00 97.7 113 21 99/48 93 Nasal Cannula 2.0 07/26/17 23:42 86/54 07/26/17 23:35 93/55 07/26/17 23:26 110/59 07/26/17 23:14 107 18 97 Nasal Cannula 3.0 32 07/26/17 23:00 105 18 96 Nasal Cannula 3.0 32 07/26/17 23:00 32 Intake and Output 07/27/17 07/28/17 19:00 07:00 Intake Total 600 ml Output Total 2200 ml Balance -1600 ml Intake Oral 600 ml Output Urine Total 2200 ml # Voids 2 Laboratory Tests 07/27/17 08:35: White Blood Count 14.6H, Red Blood Count 4.38L, Hemoglobin 13.2L, Hematocrit 38.3L, Mean Corpuscular Volume 87, Mean Corpuscular Hemoglobin 30.1, Mean Corpuscular Hemoglobin Concent 34.5, Red Cell Distribution Width 12.8, Platelet Count 209, Mean Platelet Volume 7.7, Neutrophils (%) (Auto) 62.0, Lymphocytes (% ) (Auto) 31.9, Monocytes (%) (Auto) 5.4, Eosinophils (%) (Auto) 0.1, Basophils ( %) (Auto) 0.6, Sodium Level 134L, Potassium Level 3.7, Chloride Level 95L, Carbon Dioxide Level 25, Anion Gap 14, Blood Urea Nitrogen 23, Creatinine 0.9, Estimat Glomerular Filtration Rate > 60, Glucose Level 285#H, Calcium Level 9.0 , Troponin I < 0.30 Height (Feet): 5 Height (Inches): 11.00 Weight (Pounds): 232 FINA [place] Jul 27, 2017 22:57
[2017-07-28] VITALS: BP 107/61
[2017-07-28] MEDS: Zolpidem 5mg tab ORAL PRN (00:15)
[2017-07-28] MEDS: Albuterol/Ipratropium 3ml neb HHN SCH ×4 (00:45→11:12)
[2017-07-28] MEDS: Morphine Sulfate 2mg/ml Inj IVP PRN ×2 (02:42→06:35)
[2017-07-28 04:00] VITALS: BP 102/55
[2017-07-28] MEDS: NovoLOG Insulin Flexpen SUBQ SCH ×4 (06:36→12:39)
[2017-07-28] MEDS: metFORMIN 500mg tab ORAL SCH ×2 (06:37→12:34)
[2017-07-28] MEDS ORDERED: oxyCODONE HCL/Acetaminophen 5/325mg ORAL PRN (08:15)
--- NOTE | 2017-07-28 08:20 | General Progress Note ---
Assessment/Plan Assessment/Plan (1) Chiari malformation type II (2) Degenerative disc disease, cervical (3) Lumbar degenerative disc disease (4) Arthritis, lumbar spine (5) Peripheral neuropathy (6) Hydrocephalus (7) Diabetes mellitus Pt will be discontinued off Morphine and we will start Percocet 5/325mg PO 1 tab Q4H PRN severe pain. Pt was d/w Dr. Napier and he concurred. Subjective Date patient seen: Jul 28, 2017 Time patient seen: 07:00 - am Allergies: Coded Allergies: No Known Allergies (Unverified , 02/06/15) Subjective Constitutional: Reports: weakness, Denies: chills, diaphoresis, fever, malaise , no symptoms, other HEENT: Denies: blurred vision, double vision, ear discharge, ear pain, eye pain , mouth pain, mouth swelling, no symptoms, nose congestion, nose pain, other, tearing, throat pain, throat swelling Cardiovascular: Denies: chest pain, edema, irregular heart rate, lightheadedness, no symptoms, other, palpitations, syncope Respiratory: Denies: SOB at rest, SOB with excertion, cough, no symptoms, orthopnea, other, shortness of breath, sputum, stridor, wheezing Gastrointestinal/Abdominal: Denies: abdomen distended, abdominal pain, black stools, blood in stool, constipated, diarrhea, difficulty swallowing, nausea, no symptoms, other, poor appetite, poor fluid intake, rectal bleeding, tarry stools, vomiting Genitourinary: Denies: burning, discharge, flank pain, frequency, hematuria, incontinence, no symptoms, other, pain, urgency Neurologic/Psychiatric: Reports: headache, numbness, tingling, weakness, Denies : anxiety, depressed, emotional problems, no symptoms, other, paresthesia, pre- existing deficit, seizure, tremors Endocrine: Denies: excessive sweating, flushing, increased hunger, increased thirst, increased urine, intolerance to cold, intolerance to heat, no symptoms, other, unexplained weight gain, unexplained weight loss Hematologic/Lymphatic: Denies: anemia, easy bleeding, easy bruising, no symptoms, other Subjective Pain has been stable and is comfortable. I d/w pt about stopping the morphine and starting Percocet he understands. Objective Last 24 Hour Vital Signs Date Time Temp Pulse Resp B/P (MAP) Pulse Ox O2 Delivery O2 Flow Rate FiO2 07/28/17 07:25 114 20 99 Room Air 21 07/28/17 07:23 Nasal Cannula 2.0 28 07/28/17 07:16 118 20 96 Room Air 21 07/28/17 07:15 96 Room Air 21 07/28/17 04:00 97.9 103 21 102/55 95 Nasal Cannula 2.0 07/28/17 03:42 104 20 99 Nasal Cannula 2.0 28 07/28/17 03:41 101 20 97 Nasal Cannula 2.0 28 07/28/17 00:00 98.2 108 20 107/61 96 Room Air 07/27/17 23:00 20 07/27/17 23:00 20 07/27/17 22:01 20 07/27/17 22:00 20 07/27/17 20:00 98.4 123 21 116/71 94 Room Air 07/27/17 19:30 Nasal Cannula 2.0 28 07/27/17 19:30 95 Nasal Cannula 2.0 28 07/27/17 19:16 97.9 07/27/17 18:55 97.9 07/27/17 16:00 97.9 120 21 120/61 95 Nasal Cannula 2.0 07/27/17 15:28 101 16 Nasal Cannula 3.0 32 07/27/17 15:20 99 18 96 Nasal Cannula 3.0 32 07/27/17 15:20 32 07/27/17 12:00 98.2 119 20 107/58 95 Nasal Cannula 2.0 07/27/17 11:51 105 16 99 Nasal Cannula 3.0 32 07/27/17 11:40 32 07/27/17 11:40 102 18 96 Nasal Cannula 3.0 32 07/27/17 09:28 97.9 Laboratory Tests 07/27/17 08:35: White Blood Count 14.6H, Red Blood Count 4.38L, Hemoglobin 13.2L, Hematocrit 38.3L, Mean Corpuscular Volume 87, Mean Corpuscular Hemoglobin 30.1, Mean Corpuscular Hemoglobin Concent 34.5, Red Cell Distribution Width 12.8, Platelet Count 209, Mean Platelet Volume 7.7, Neutrophils (%) (Auto) 62.0, Lymphocytes (% ) (Auto) 31.9, Monocytes (%) (Auto) 5.4, Eosinophils (%) (Auto) 0.1, Basophils ( %) (Auto) 0.6, Sodium Level 134L, Potassium Level 3.7, Chloride Level 95L, Carbon Dioxide Level 25, Anion Gap 14, Blood Urea Nitrogen 23, Creatinine 0.9, Estimat Glomerular Filtration Rate > 60, Glucose Level 285#H, Calcium Level 9.0 , Troponin I < 0.30 Height (Feet): 5 Height (Inches): 11.00 Weight (Pounds): 232 Objective General Appearance: no apparent distress, alert EENT: normal ENT inspection, TMs normal Neck: supple, limited range of motion, muscle spasm Cardiovascular: normal rate, regular rhythm Respiratory/Chest: decreased breath sounds Abdomen: non tender, soft Extremities: non-tender Edema: no edema noted Arm (L), no edema noted Arm (R), no edema noted Leg (L), no edema noted Leg (R), no edema noted Pedal (L), no edema noted Pedal (R), no edema noted Generalized Neurologic: alert, oriented x 3 Skin: warm/dry TREE SINGLETON PIrene Jul 28, 2017 08:20
--- NOTE | 2017-07-28 08:30 | Progress Note ---
DATE: 07/27/2017 Subjective: This is a 36-year-old male patient with bipolar II disorder and schizoaffective, bipolar type. Plan: Continue him on Geodon 20 mg daily and also continue him on Depakote to stabilize his mood. We would continue to monitor the patient's course. I encouraged him to interact appropriately with staff and other patients. Chart reviewed and discussed with staff. Seen and assessed at the bedside. Charmaine Victor M.D. DR: MARY JOB#: [id number] CC:
[2017-07-28] MEDS: Heparin 5000 units/ml inj SUBQ SCH (09:00)
--- NOTE | 2017-07-28 09:19 | General Progress Note ---
Assessment/Plan Problem List: (1) Hyperglycemia due to type 2 diabetes mellitus ICD Codes: E11.65 - Type 2 diabetes mellitus with hyperglycemia SNOMED: 986325908974941 (2) COPD exacerbation ICD Codes: J44.1 - Chronic obstructive pulmonary disease with (acute) exacerbation SNOMED: 434816531, 773082936 Assessment/Plan glycemic control improving continue Levemir 30 units bid continue Novolog to 30 units ac tid continue sliding scale ac / hs continue Metformin Subjective Allergies: Coded Allergies: No Known Allergies (Unverified , 02/06/15) All Systems: reviewed and negative except above Subjective events noted Objective Last 24 Hour Vital Signs Date Time Temp Pulse Resp B/P (MAP) Pulse Ox O2 Delivery O2 Flow Rate FiO2 07/28/17 07:25 114 20 99 Room Air 21 07/28/17 07:23 Nasal Cannula 2.0 28 07/28/17 07:16 118 20 96 Room Air 21 07/28/17 07:15 96 Room Air 21 07/28/17 04:00 97.9 103 21 102/55 95 Nasal Cannula 2.0 07/28/17 03:42 104 20 99 Nasal Cannula 2.0 28 07/28/17 03:41 101 20 97 Nasal Cannula 2.0 28 07/28/17 00:00 98.2 108 20 107/61 96 Room Air 07/27/17 23:00 20 07/27/17 23:00 20 07/27/17 22:01 20 07/27/17 22:00 20 07/27/17 20:00 98.4 123 21 116/71 94 Room Air 07/27/17 19:30 Nasal Cannula 2.0 28 07/27/17 19:30 95 Nasal Cannula 2.0 28 07/27/17 19:16 97.9 07/27/17 18:55 97.9 07/27/17 16:00 97.9 120 21 120/61 95 Nasal Cannula 2.0 07/27/17 15:28 101 16 Nasal Cannula 3.0 32 07/27/17 15:20 99 18 96 Nasal Cannula 3.0 32 07/27/17 15:20 32 07/27/17 12:00 98.2 119 20 107/58 95 Nasal Cannula 2.0 07/27/17 11:51 105 16 99 Nasal Cannula 3.0 32 07/27/17 11:40 32 07/27/17 11:40 102 18 96 Nasal Cannula 3.0 32 07/27/17 09:28 97.9 Height (Feet): 5 Height (Inches): 11.00 Weight (Pounds): 232 General Appearance: no apparent distress Neck: non-tender Cardiovascular: normal rate Respiratory/Chest: lungs clear Abdomen: normal bowel sounds Pelvis: normal external exam Objective Current Medications Medications (Trade) Dose Ordered Sig/Sofia Route PRN Reason Start Time Stop Time Status Last Admin Dose Admin Acetaminophen (Tylenol) 650 mg Q4H PRN ORAL FEVER>100.5 07/22/17 15:30 08/21/17 15:29 Albuterol/ Ipratropium (DuoNeb 0.5-3(2.5)mg/3ml) 3 ml Q4HRT HHN 07/28/17 00:45 08/02/17 00:44 07/28/17 07:20 Clonidine HCl (Catapres) 0.1 mg Q4H PRN ORAL sbp more than 160 07/22/17 15:30 08/21/17 15:29 Dextrose (Dextrose 50%) STAT PRN IV Hypoglycemia 07/22/17 18:30 08/21/17 18:29 Divalproex Sodium (Depakote ER) 500 mg EVERY 12 HOURS ORAL 07/24/17 21:00 08/23/17 20:59 07/27/17 20:57 Doxycycline Monohydrate (Vibramycin) 100 mg EVERY 12 HOURS ORAL 07/23/17 15:00 07/30/17 14:59 07/27/17 20:58 Heparin Sodium (Porcine) (Heparin 5000 units/ml) 5,000 units EVERY 12 HOURS SUBQ 07/22/17 21:00 08/21/17 20:59 07/26/17 20:59 Insulin Aspart (NovoLOG) BEFORE MEALS AND HS SUBQ 07/22/17 21:00 08/21/17 20:59 07/28/17 06:37 Insulin Aspart (NovoLOG) 30 units NOVOTIAC SUBQ 07/27/17 11:50 08/26/17 11:49 07/28/17 06:36 Insulin Detemir (Levemir) 30 units BID SUBQ 07/26/17 09:00 08/23/17 20:59 07/27/17 17:58 Lorazepam (Ativan 2mg/ml 1ml) 0.5 mg Q4H PRN IV For Anxiety 07/22/17 15:30 07/29/17 15:29 Metformin HCl (Glucophage) 500 mg TIAC ORAL 07/24/17 06:30 08/23/17 06:29 07/28/17 06:37 Nitroglycerin (Ntg) 0.4 mg Q5M X 3 DOSES PRN SL Prn Chest Pain 07/22/17 15:30 08/21/17 15:29 07/26/17 23:42 Ondansetron HCl (Zofran) 4 mg Q6H PRN IVP Nausea & Vomiting 07/22/17 15:30 08/21/17 15:29 Oxycodone/ Acetaminophen (Percocet 5-325) 1 tab Q4H PRN ORAL severe pain 07/28/17 08:15 08/04/17 08:14 Pregabalin (Lyrica) 150 mg THREE TIMES A DAY ORAL 07/27/17 18:00 08/26/17 17:59 07/27/17 17:56 Promethazine HCl/ Codeine (Phenergan with Codeine) 5 ml Q6H PRN ORAL cough 07/22/17 15:30 08/21/17 15:29 Quetiapine Fumarate (SEROquel) 300 mg QHS ORAL 07/24/17 21:00 08/23/17 20:59 07/27/17 20:58 Theophylline (Bobby-Dur) 100 mg EVERY 12 HOURS ORAL 07/22/17 21:00 08/21/17 20:59 07/27/17 20:58 Ziprasidone (Geodon) 20 mg DAILY ORAL 07/23/17 09:00 08/22/17 08:59 07/27/17 08:30 Zolpidem Tartrate (Ambien) 5 mg HSPRN PRN ORAL Insomnia 07/24/17 21:00 07/31/17 20:59 07/28/17 00:15 Item Value Date Time Bedside Blood Glucose 253 mg/dl H 07/28/17 0637 Bedside Blood Glucose 225 mg/dl H 07/27/17 2102 Bedside Blood Glucose 279 mg/dl H 07/27/17 1758 Bedside Blood Glucose 288 mg/dl H 07/27/17 1207 Bedside Blood Glucose 392 mg/dl H 07/27/1741 Bedside Blood Glucose 392 mg/dl H 07/27/17 0646 ORALIA VALENCIA Jul 28, 2017 09:19
[2017-07-28] MEDS: Depakote ER 500mg tab ORAL SCH (09:39)
[2017-07-28] MEDS: Theophylline ER 100mg ORAL SCH (09:40)
[2017-07-28] MEDS: Lyrica 75mg cap ORAL SCH ×2 (09:40→13:56)
[2017-07-28] MEDS: Levemir Flexpen SUBQ SCH (09:48)
[2017-07-28 09:49] LABS: BASOPHILS % (AUTO) 0.6 % (0.0-2.0); EOSINOPHILS % (AUTO) 0.9 % (0.0-3.0); LYMPHOCYTES % (AUTO) 31.8 % (20.0-45.0); MEAN CORPUSCULAR HEMOGLOBIN 29.4 PG (27.0-31.0); MEAN CORPUSCULAR HGB CONC 33.7 G/DL (32.0-36.0); MEAN CORPUSCULAR VOLUME 87 FL (80-99); MEAN PLATELET VOLUME 7.8 FL (6.5-10.1); MONOCYTES % (AUTO) 5.7 % (1.0-10.0); PLATELET COUNT 194 K/UL (150-450); RED BLOOD COUNT 4.46 M/UL (4.70-6.10); WHITE BLOOD COUNT 13.6 K/UL (4.8-10.8)
[2017-07-28 09:55] LABS: ANION GAP 12 (5-15); CALCIUM 9.2 mg/dL (8.6-10.2); CARBON DIOXIDE 26 mEQ/L (20-30); CHLORIDE 95 mEQ/L (98-107); CREATININE 0.8 mg/dL (0.7-1.2); GLOMERULAR FILTRATION RATE > 60 mL/min (>60); HEMOLYSIS 3; POTASSIUM 3.9 mEQ/L (3.4-4.9); SODIUM 133 mEQ/L (135-145)
[2017-07-28] MEDS: Ziprasidone 20mg cap ORAL SCH (09:57)
--- NOTE | 2017-07-28 13:03 | General Progress Note ---
Assessment/Plan Problem List: (1) Diabetes mellitus ICD Codes: E11.9 - Diabetes mellitus SNOMED: 44627480 (2) Generalized weakness ICD Codes: R53.1 - Weakness SNOMED: 92891338 (3) COPD exacerbation ICD Codes: J44.1 - Chronic obstructive pulmonary disease with (acute) exacerbation SNOMED: 209349001, 045656168 (4) Hyperglycemia due to type 2 diabetes mellitus ICD Codes: E11.65 - Type 2 diabetes mellitus with hyperglycemia SNOMED: 931878788048389 (5) Opiate dependence ICD Codes: F11.20 - Opioid dependence SNOMED: 39665285 (6) Anxiety ICD Codes: F41.9 - Anxiety disorder, unspecified; Z68.41 - Body mass index (BMI ) 40.0-44.9, adult SNOMED: 03913707 Status: stable, progressing, tolerating diet Assessment/Plan o2 pulm tx abx ot pt diet cbc bmp am dc if clear Subjective Allergies: Coded Allergies: No Known Allergies (Unverified , 02/06/15) All Systems: reviewed and negative except above Subjective calm no complaints Objective Last 24 Hour Vital Signs Date Time Temp Pulse Resp B/P (MAP) Pulse Ox O2 Delivery O2 Flow Rate FiO2 07/28/17 11:25 112 20 Room Air 07/28/17 11:10 108 20 Room Air 07/28/17 07:25 114 20 99 Room Air 07/28/17 07:23 Nasal Cannula 2.0 28 07/28/17 07:16 118 20 96 Room Air 07/28/17 07:15 96 Room Air 07/28/17 04:00 97.9 103 21 102/55 95 Nasal Cannula 2.0 07/28/17 03:42 104 20 99 Nasal Cannula 2.0 07/28/17 03:41 101 20 97 Nasal Cannula 2.0 28 07/28/17 00:00 98.2 108 20 107/61 96 Room Air 07/27/17 23:00 20 07/27/17 23:00 20 07/27/17 22:01 20 07/27/17 22:00 20 07/27/17 20:00 98.4 123 21 116/71 94 Room Air 07/27/17 19:30 Nasal Cannula 2.0 28 07/27/17 19:30 95 Nasal Cannula 2.0 28 07/27/17 19:16 97.9 07/27/17 18:55 97.9 07/27/17 16:00 97.9 120 21 120/61 95 Nasal Cannula 2.0 07/27/17 15:28 101 16 Nasal Cannula 3.0 32 07/27/17 15:20 99 18 96 Nasal Cannula 3.0 32 07/27/17 15:20 32 Laboratory Tests 07/28/17 09:20: White Blood Count 13.6H, Red Blood Count 4.46L, Hemoglobin 13.1L, Hematocrit 38.8L, Mean Corpuscular Volume 87, Mean Corpuscular Hemoglobin 29.4, Mean Corpuscular Hemoglobin Concent 33.7, Red Cell Distribution Width 13.0, Platelet Count 194, Mean Platelet Volume 7.8, Neutrophils (%) (Auto) 61.0, Lymphocytes (% ) (Auto) 31.8, Monocytes (%) (Auto) 5.7, Eosinophils (%) (Auto) 0.9, Basophils ( %) (Auto) 0.6, Sodium Level 133L, Potassium Level 3.9, Chloride Level 95L, Carbon Dioxide Level 26, Anion Gap 12, Blood Urea Nitrogen 21, Creatinine 0.8, Estimat Glomerular Filtration Rate > 60, Glucose Level 238H, Calcium Level 9.2 Height (Feet): 5 Height (Inches): 11.00 Weight (Pounds): 232 General Appearance: alert EENT: normal ENT inspection Neck: normal alignment Cardiovascular: normal peripheral pulses, normal rate, regular rhythm Respiratory/Chest: chest wall non-tender, lungs clear, normal breath sounds Abdomen: normal bowel sounds, non tender, soft Edema: no edema noted Arm (L), no edema noted Arm (R), no edema noted Leg (L), no edema noted Leg (R), no edema noted Pedal (L), no edema noted Pedal (R), no edema noted Generalized Neurologic: responsive, motor weakness Skin: normal pigmentation, warm/dry INDU KEEN Jul 28, 2017 13:03
[2017-07-28] MEDS ORDERED: DEPAKOTE250 MG PO (13:39)
[2017-07-28] MEDS ORDERED: SEROQUEL200 MG ORAL (13:40)
[2017-07-28] MEDS ORDERED: PERCOCET 5-3251 EACH ORAL (13:41)
[2017-07-28] MEDS ORDERED: AMBIEN5 MG ORAL (13:44)
[2017-07-28] MEDS ORDERED: LEVEMIR100 UNIT/1 SUBQ (14:00)
[2017-07-28] MEDS ORDERED: NOVOLOG100 UNIT/3 SUBQ (14:05)
[2017-07-28] MEDS ORDERED: NOVOLOG100 UNITS1 SQ (14:05)
[2017-07-28] MEDS ORDERED: METFORMIN HCL500 M1 ORAL (14:09)
--- NOTE | 2017-07-28 18:00 | Cardiology Report ---
APPROVED REPORT EKG Measurement Heart [id number] 124P60 [id number] Sinus tachycardia Otherwise normal ECG
--- NOTE | 2017-07-28 22:01 | Pulmonology Progress Note ---
Assessment/Plan Problems: (1) COPD exacerbation (2) Lumbar back pain (3) Anxiety (4) Diabetes mellitus Assessment/Plan taper steroids IV abx check sputum sliding scale improving slowly Subjective ROS Limited/Unobtainable: No Constitutional: Reports: no symptoms HEENT: Repors: no symptoms Respiratory: Reports: no symptoms Cardiovascular: Reports: no symptoms Allergies: Coded Allergies: No Known Allergies (Unverified , 02/06/15) Objective Last 24 Hour Vital Signs Date Time Temp Pulse Resp B/P (MAP) Pulse Ox O2 Delivery O2 Flow Rate FiO2 07/28/17 11:25 112 20 Room Air 21 07/28/17 11:10 108 20 Room Air 21 07/28/17 07:25 114 20 99 Room Air 21 07/28/17 07:23 Nasal Cannula 2.0 28 07/28/17 07:16 118 20 96 Room Air 21 07/28/17 07:15 96 Room Air 21 07/28/17 04:00 97.9 103 21 102/55 95 Nasal Cannula 2.0 07/28/17 03:42 104 20 99 Nasal Cannula 2.0 28 07/28/17 03:41 101 20 97 Nasal Cannula 2.0 28 07/28/17 00:00 98.2 108 20 107/61 96 Room Air 07/27/17 23:00 20 07/27/17 23:00 20 Objective General Appearance: WD/WN HEENT: normocephalic, atraumatic Respiratory/Chest: chest wall non-tender, lungs clear Cardiovascular: normal peripheral pulses, normal rate Abdomen: soft, non tender Extremities: no cyanosis Skin: no rash Neurologic/Psychiatric: criminology professor II-XII grossly normal, no motor/sensory deficits Lymphatic: no neck adenopathy Laboratory Tests 07/28/17 09:20: White Blood Count 13.6H, Red Blood Count 4.46L, Hemoglobin 13.1L, Hematocrit 38.8L, Mean Corpuscular Volume 87, Mean Corpuscular Hemoglobin 29.4, Mean Corpuscular Hemoglobin Concent 33.7, Red Cell Distribution Width 13.0, Platelet Count 194, Mean Platelet Volume 7.8, Neutrophils (%) (Auto) 61.0, Lymphocytes (% ) (Auto) 31.8, Monocytes (%) (Auto) 5.7, Eosinophils (%) (Auto) 0.9, Basophils ( %) (Auto) 0.6, Sodium Level 133L, Potassium Level 3.9, Chloride Level 95L, Carbon Dioxide Level 26, Anion Gap 12, Blood Urea Nitrogen 21, Creatinine 0.8, Estimat Glomerular Filtration Rate > 60, Glucose Level 238H, Calcium Level 9.2 QUINN SMITH Jul 28, 2017 22:01
--- NOTE | 2017-07-30 08:15 | Progress Note ---
DATE: 07/28/2017 Subjective: The patient is a 36-year-old male patient who came in with COPD. altered mental status. Continue treatment with Geodon and Depakote, Geodon to stabilize his mood and to prevent mood lability . Chart reviewed and discussed with staff. Seen and assessed at the bedside. Charmaine Victor M.D. DR: POONAM JOB#: [id number] CC:
--- NOTE | 2017-07-30 11:27 | Discharge Summary ---
Discharge Summary Hospital Course Date of Admission Jul 22, 2017 at 16:00 Date of Discharge Jul 28, 2017 at 15:26 Admitting Diagnosis COPD, hyperglycemia HPI Chucky Chopra is a 36 year old male who was admitted on Jul 22, 2017 at 16:00 for Chronic Obstructive Pulmonary Disorder, Hyperglyce Hospital Course [id number] Discharge Discharge Disposition Patient was discharged to SNF/Subacute Facility(03) Discharge Diagnoses: Jocy Valdes NP Jul 30, 2017 11:27
--- NOTE | 2017-07-31 01:45 | Discharge Summary 2 SIG ---
DATE OF ADMISSION: 07/22/2017 DATE OF DISCHARGE: 07/28/2017 CONSULTANTS: 1. Lashanda Pham M.D. 2. Teresita Sewell M.D. 3. Tavo Malhotra M.D. 4. Charmaine Victor M.D. 5. Juan Chinchilla M.D. 6. Antonio Napier M.D. Brief Hospital Course: The patient is a 36-year-old male from [facility] presented to ED with cough, wheezing, for 2 days which was getting worse and lost his voice. Blood sugar was 450. On evaluation at ED, laboratories showed minimal leukocytosis. Lactate was negative. Chest x-ray done showed no consolidation, effusion or pneumothorax. No acute cardiopulmonary disease. EKG was in normal sinus rhythm. He was admitted for COPD exacerbation and was started on IV Solu-Medrol and was given doxycycline. He had poor compliance with medications. He had hyperglycemia secondary to type 2 diabetes mellitus. Insulin were titrated and he was started on metformin. At that time of discharge, he was being given Levemir 30 units b.i.d. with NovoLog 30 units before meals b.i.d. and metformin 500 mg t.i.d. before meals. He has schizoaffective bipolar-type disorder and was given Geodon and Depakote to help stabilize mood. Steroid was eventually tapered, and the patient was discharged back to skilled nursing. FINAL DIAGNOSES: 1. Acute chronic obstructive pulmonary disease exacerbation. 2. Diabetes mellitus, out of control. 3. Opiate dependence. 4. Anxiety. 5. Generalized weakness. 6. Lumbar back pain. 7. Schizoaffective bipolar-type disorder. 8. Diabetes mellitus, out of control. DISPOSITION: The patient was discharged back to SNF. DISCHARGE MEDICATIONS: Refer to med list. Aniceto Sepulveda D.O. I have been assigned to dictate discharge summary on this account and I was not involved in the patient's management. Jocy Valdes N.P. DR: JAMI JOB#: [id number] CC: JERALD
--- NOTE | 2017-08-01 02:11 | Cardiology Report ---
APPROVED REPORT EKG Measurement Heart [id number] AL 150P72 [id number] Normal sinus rhythm Normal ECG
--- NOTE | 2017-08-01 02:30 | Consultation ---
DATE OF CONSULTATION: 07/22/2017 INFECTIOUS DISEASES CONSULTATION ADDENDUM MEDICATIONS: Please refer to the MAR. ALLERGIES: The patient has no known drug allergy. PHYSICAL EXAMINATION: General: A middle-aged male, lying in bed, comfortable, awake, alert, oriented, not in distress, coughing and wheezing. Vital Signs: Temperature 97.3 degrees, pulse 100, respirations 15, blood pressure 129/67 and saturation 97% on room air. HEENT: Normocephalic and atraumatic. Pupils are reactive to light. Moist oral mucosa. No exudate or thrush. NECK: Supple. No lymphadenopathy. CARDIOVASCULAR: Regular rate and rhythm. No murmur or gallop. Lungs: He had wheezing and poor air entry to both lung wilson. No rhonchi. Abdomen: Soft, obese, nontender, and nondistended. Positive bowel sounds. No hepatosplenomegaly. EXTREMITIES: No edema or cyanosis. Laboratory And Diagnostic Data: Labs showed white count of 12,000, hemoglobin of 13.4 and platelet count of 266. BUN of 12 and creatinine of 0.8. AST of 19 and ALT of 25. Urinalysis showed +1 leukocyte esterase and 0 to 2 WBC. Imaging, chest x-ray on admission showed no acute process. ASSESSMENT AND RECOMMENDATION: 1. Chronic obstructive pulmonary disease exacerbation. We will start the patient on doxycycline. Continue inhalers and steroids. Recommend pulmonary function test as an outpatient. Taper steroids. 2. Hyperglycemia due to poorly controlled diabetes and steroid. Suspect poor compliance. Monitor blood sugar to keep tight glycemic control between 80 to 120. 3. Diabetes mellitus, poorly controlled. Recommend tight glycemic control to keep blood glucose between 80 to 120. Thank you for the consult. ID will continue to follow. Teresita Sewell M.D. DR: LUIS E JOB#: [id number] CC:
== END 2017-07-28 15:26 | DRG 191 ==
LOC: EDBD 14:21 → EMR 15:58 → 4E 16:00 → EDBEDREQ 16:46
DX: J44.1 Chronic obstructive pulmonary disease with (acute) exacerbation (principal); F11.20 Opioid dependence, uncomplicated; E11.42 Type 2 diabetes mellitus with diabetic polyneuropathy; E11.65 Type 2 diabetes mellitus with hyperglycemia; Q07.02 Arnold-Chiari syndrome with hydrocephalus; J44.0 Chronic obstructive pulmonary disease with (acute) lower respiratory infection; I10 Essential (primary) hypertension; F41.9 Anxiety disorder, unspecified; G89.29 Other chronic pain; M50.30 Other cervical disc degeneration, unspecified cervical region; M51.36 Other intervertebral disc degeneration, lumbar region; J20.9 Acute bronchitis, unspecified; F25.0 Schizoaffective disorder, bipolar type; F17.210 Nicotine dependence, cigarettes, uncomplicated
CPT/HCPCS: 36415; 71010; 80048; 80053; 81003; 82009; 82550; 82553; 82962; 83605; 83735; 83880; 84484; 85007; 85025; 87040; 87081; 93005; 94640; 94664; 94760; 99285; J1815; J2405; J7620; S5561

== ENCOUNTER 2018-01-26 23:15 | Inpatient (IN) | payer MEDICARE, MEDICAID ==
[~2018-01-26] VITALS: Ht 180.3 cm; Wt 107.5 kg
[~2018-01-26 23:15] MED LIST changes: +DEPAKOTE250 MG PO; +METFORMIN HCL500 M1 ORAL; +NOVOLOG100 UNITS1 SQ; +PERCOCET 5-3251 EACH ORAL; +SEROQUEL200 MG ORAL
--- NOTE | 2018-01-26 23:51 | Emergency Room Report ---
History of Present Illness General Chief Complaint: Chest Pain Source: Patient Present Illness HPI 37-year-old male, history of stroke 2 months ago, diabetes, unknown other past medical history, very poor historian with odd affect, presenting with chest pain , high blood sugar Patient states that the last time he took his blood sugar was 2 days ago, states that it was normal, but feels like it is high Also complaining of vague generalized chest pain. Started today. No shortness of breath Also states that his left side felt weak 2 days ago, but states that it now feels weak again today, does not recall the last time that he felt like it was normal, states that it was may be yesterday No headache no neck pain no fever no chills ekg stickers noted to be on patient's chest, patient states that he lives in [place]. he was in the hospital 2 days ago and left because he said "they were not helping me" Allergies: Coded Allergies: No Known Allergies (Unverified , 02/06/15) Patient History Past Medical History: see triage record Past Surgical History: none Pertinent Family History: none Reviewed Nursing Documentation: PMH: Agreed; PSxH: Agreed Nursing Documentation-PMH Hx Cardiac Problems: Yes - STROKE 2 MONTHS AGO Hx Hypertension: Yes Hx COPD: Yes Hx Diabetes: Yes Hx Cancer: No Hx Gastrointestinal Problems: No Hx Neurological Problems: No Hx Peripheral Neuropathy: Yes Hx Dizziness: Yes Hx Weakness: Yes Review of Systems All Other Systems: negative except mentioned in HPI Physical Exam Vital Signs Date Time Temp Pulse Resp B/P (MAP) Pulse Ox O2 Delivery O2 Flow Rate FiO2 01/26/18 23:25 98.2 119 18 124/74 96 Room Air 98.2 Sp02 EP Interpretation: reviewed, normal General Appearance: other - Withdrawn affect, however not in acute distress, calm and cooperative Head: normocephalic, atraumatic Eyes: bilateral eye normal inspection, bilateral eye PERRL, bilateral eye EOMI ENT: normal ENT inspection, normal pharynx, normal voice, moist mucus membranes Neck: normal inspection, full range of motion, supple Respiratory: normal inspection, lungs clear, normal breath sounds, no respiratory distress, no retraction, no wheezing, speaking full sentences, chest symmetrical Cardiovascular #1: tachycardia Cardiovascular #2: 2+ radial (R), 2+ radial (L) Gastrointestinal: normal inspection, non tender, soft, non-distended, no guarding Genitourinary: no CVA tenderness Musculoskeletal: normal inspection, back normal, normal range of motion, non- tender Neurologic: other - Oriented 3, cranial nerves are intact, no facial droop, left-sided motor strength upper and lower extremity is 3-5, right-sided is 5 out of 5, sensory intact, gait is normal Psychiatric: normal inspection, judgement/insight normal, memory normal Skin: normal inspection, normal color, no rash, warm/dry, well hydrated, normal turgor Medical Decision Making Diagnostic Impression: Primary Impression: Acute coronary syndrome Additional Impression: Left hemiparesis ER Course 37-year-old male with chest pain, left-sided weakness, reports of blood sugar is high DDX: ACS vs. CHF vs. pneumonia vs. gastritis/GERD vs. pneumothorax Left-sided hemiparesis, last normal was 24 hours ago, CVA, electrolyte disturbance Plan: IV access, obtain labs including troponin, EKG, CXR CT head ER course: Glucose is normal CT head normal VSS trop neg Disposition: Patient will be admitted to telemetry DW Dr Aniceto Sepulveda Please note that this Emergency Department Report was dictated using [employer] separation designer technology software, occasionally this can lead to erroneous entry secondary to interpretation by the dictation equipment. EKG Diagnostic Results EP Interpretation: Yes Rate: tachy Rhythm: NSR ST Segments: No acute changes ASA given to patient: no Rhythm Strip EP Interpretation: Yes Rate: 110 Rhythm: NSR, no PVCs, no ectopy Chest X-ray CXR: Ordered: Yes 1 view Indication: Chest pain EP interpretation: Yes Interpretation: No consolidation, no effusion, no PTX, no acute cardiopulmonary disease Impression: No acute disease Electronically signed by Ignacio Caro MD Laboratory Tests Test 01/27/18 00:20 01/27/18 00:28 White Blood Count 13.8 K/UL (4.8-10.8) H Red Blood Count 5.07 M/UL (4.70-6.10) Hemoglobin 14.8 G/DL (14.2-18.0) Hematocrit 42.7 % (42.0-52.0) Mean Corpuscular Volume 84 FL (80-99) Mean Corpuscular Hemoglobin 29.2 PG (27.0-31.0) Mean Corpuscular Hemoglobin Concent 34.8 G/DL (32.0-36.0) Red Cell Distribution Width 11.9 % (11.6-14.8) Platelet Count 247 K/UL (150-450) Mean Platelet Volume 7.7 FL (6.5-10.1) Neutrophils (%) (Auto) 70.5 % (45.0-75.0) Lymphocytes (%) (Auto) 20.7 % (20.0-45.0) Monocytes (%) (Auto) 6.8 % (1.0-10.0) Eosinophils (%) (Auto) 1.2 % (0.0-3.0) Basophils (%) (Auto) 0.9 % (0.0-2.0) Prothrombin Time 8.8 SEC (9.30-11.50) L Prothrombin Time INR 0.8 (0.9-1.1) L PTT 26 SEC (23-33) Sodium Level 138 MMOL/L (136-145) Potassium Level 4.0 MMOL/L (3.5-5.1) Chloride Level 103 MMOL/L (98-107) Carbon Dioxide Level 28 MMOL/L (21-32) Anion Gap 7 mmol/L (5-15) Blood Urea Nitrogen 16 mg/dL (7-18) Creatinine 0.9 MG/DL (0.55-1.30) Estimate Glomerular Filtration Rate > 60 mL/min (>60) Glucose Level 154 MG/DL (74-106) H Calcium Level 9.0 MG/DL (8.5-10.1) Magnesium Level 1.8 MG/DL (1.8-2.4) Total Bilirubin 0.3 MG/DL (0.2-1.0) Aspartate Amino Transferase (AST) 19 U/L (15-37) Alanine Aminotransferase (ALT) 31 U/L (12-78) Alkaline Phosphatase 73 U/L (46-116) Troponin I 0.000 ng/mL (0.000-0.056) Pro-B-Type Natriuretic Peptide 146 pg/mL (0-125) H Total Protein 6.7 G/DL (6.4-8.2) Albumin 3.8 G/DL (3.4-5.0) Globulin 2.9 g/dL Albumin/Globulin Ratio 1.3 (1.0-2.7) Urine Color Yellow Urine Appearance Clear Urine pH 6 (4.5-8.0) Urine Specific [place] 1.015 (1.005-1.035) Urine Protein Negative (NEGATIVE) Urine Glucose (UA) Negative (NEGATIVE) Urine Ketones Negative (NEGATIVE) Urine Occult Blood Negative (NEGATIVE) Urine Nitrite Negative (NEGATIVE) Urine Bilirubin Negative (NEGATIVE) Urine Urobilinogen Normal MG/DL (0.0-1.0) Urine Leukocyte Esterase Negative (NEGATIVE) CT/MRI/US Diagnostic Results CT/MRI/US Diagnostic Results : Imaging Test Ordered: CT head Impression CT HEAD: Comparison: 08/24/15 No acute intracranial findings or substantial change. Last Vital Signs Date Time Temp Pulse Resp B/P (MAP) Pulse Ox O2 Delivery O2 Flow Rate FiO2 01/26/18 23:25 98.2 119 18 124/74 96 Room Air 98.2 Disposition: ADMITTED INPATIENT Condition: Serious Ignacio Caro M.D. Jan 26, 2018 23:51
[2018-01-27] VITALS (8 sets, daily range): BP systolic 111–139; BP diastolic 67–78
[2018-01-27 00:46] LABS: APPEARANCE,URINE CLEAR; BILIRUBIN, URINE NEGATIVE (NEGATIVE); GLUCOSE, URINE (UA) NEGATIVE (NEGATIVE); KETONES,URINE NEGATIVE (NEGATIVE); LEUKOCYTE ESTERASE ,URINE NEGATIVE (NEGATIVE); NITRITE,URINE NEGATIVE (NEGATIVE); PH,URINE 6 (4.5-8.0); PROTEIN,URINE NEGATIVE (NEGATIVE); UROBILINOGEN,URINE NORMAL MG/DL (0.0-1.0)
[2018-01-27 00:52] LABS: COLOR,URINE YELLOW
[2018-01-27 00:52] LABS: BASOPHILS % (AUTO) 0.9 % (0.0-2.0); EOSINOPHILS % (AUTO) 1.2 % (0.0-3.0); HEMATOCRIT 42.7 % (42.0-52.0); HEMOGLOBIN 14.8 G/DL (14.2-18.0); LYMPHOCYTES % (AUTO) 20.7 % (20.0-45.0); MEAN CORPUSCULAR VOLUME 84 FL (80-99); MONOCYTES % (AUTO) 6.8 % (1.0-10.0); NEUTROPHILS % (AUTO) 70.5 % (45.0-75.0); PLATELET COUNT 247 K/UL (150-450); RED BLOOD COUNT 5.07 M/UL (4.70-6.10); RED CELL DISTRIBUTION WIDTH 11.9 % (11.6-14.8); WHITE BLOOD COUNT 13.8 K/UL (4.8-10.8)
[2018-01-27 00:57] LABS: ANION GAP 7 mmol/L (5-15); BLOOD UREA NITROGEN 16 mg/dL (7-18); CARBON DIOXIDE 28 MMOL/L (21-32); CHLORIDE 103 MMOL/L (98-107); CREATININE 0.9 MG/DL (0.55-1.30); SODIUM 138 MMOL/L (136-145)
[2018-01-27] MEDS ORDERED: Morphine Sulfate 4mg/ml Inj IVP ONE (01:00)
[2018-01-27] MEDS ORDERED: Aspirin Baby 81mg ORAL ONE (01:00)
[2018-01-27 01:02] LABS: ALANINE AMINOTRANSFERASE 31 U/L (12-78); ALBUMIN 3.8 G/DL (3.4-5.0); ALBUMIN/GLOBULIN RATIO 1.3 (1.0-2.7); ALKALINE PHOSPHATASE 73 U/L (46-116); ASPARTATE AMINO TRANSFERASE 19 U/L (15-37); BILIRUBIN,TOTAL 0.3 MG/DL (0.2-1.0)
[2018-01-27 01:10] LABS: INR 0.8 (0.9-1.1)
[2018-01-27] MEDS ORDERED: Mylanta II UD 30ml ORAL PRN (07:30)
[2018-01-27] MEDS ORDERED: oxyCODONE HCL/Acetaminophen 5/325mg ORAL PRN (07:30)
[2018-01-27] MEDS ORDERED: Zolpidem 5mg tab ORAL PRN (07:30)
[2018-01-27] MEDS ORDERED: Promethazine/Codeine 5ml UD ORAL PRN (07:30)
[2018-01-27] MEDS ORDERED: Morphine Sulfate 2mg/ml Inj IVP PRN (07:30)
[2018-01-27] MEDS ORDERED: Miralax 17gm pkt ORAL PRN (07:30)
[2018-01-27] MEDS ORDERED: LORazepam Inj 2mg/ml 1ml IV PRN (07:30)
[2018-01-27] MEDS ORDERED: Lyrica 75mg cap ORAL SCH (09:00)
[2018-01-27] MEDS ORDERED: Theophylline ER 100mg ORAL SCH (09:00)
--- NOTE | 2018-01-27 09:01 | Diagnostic Imaging Report ---
Indication: Headache Technique: Contiguous 5 mm thick transaxial imaging of the head obtained in a Siemens Sensation [address] scanner. Soft tissue and bone windows generated. Automatic Exposure Control was utilized. Total Dose length Product (DLP): 1379.[address] Dose Index Volume (CTDIvol): 70.38 mGy Comparison: 08/24/2015 Findings: The size and configuration of the cortical sulci, basal cisterns, and ventricles are within normal limits for age. There is no mass effect, midline shift, or edema identified. There is no evidence of acute hemorrhage or abnormal intra-axial or extra-axial fluid collections. The bones and soft tissues are unremarkable. Suboccipital craniectomy again noted. Impression: No mass effect, edema or acute bleed. The CT scanner at [facility] is accredited by the [employer] and the scans are performed using dose optimization techniques as appropriate to a performed exam including Automatic Exposure control.
[2018-01-27] MEDS: Morphine Sulfate 4mg/ml Inj IVP PRN (09:05)
[2018-01-27] MEDS: Lyrica 75mg cap ORAL SCH ×3 (10:17→21:10)
[2018-01-27] MEDS: Ziprasidone 20mg cap ORAL SCH ×2 (10:17→18:36)
[2018-01-27] MEDS: Depakote ER 500mg tab ORAL SCH ×2 (10:18→21:10)
--- NOTE | 2018-01-27 10:26 | Diagnostic Imaging Report ---
Indication: Chest pain Comparison: 07/22/2017 A single view chest radiograph was obtained. Findings: Cardiomediastinal appearance is within normal limits for age. Pulmonary vascularity is appropriate. The diaphragmatic contour is smooth and costophrenic angles are sharp. No pleural effusions are identified. The bones are unremarkable. Impression: No acute findings
[2018-01-27] MEDS: Heparin 5000 units/ml inj SUBQ SCH ×2 (10:43→21:14)
--- NOTE | 2018-01-27 11:17 | Neurology Progress Note ---
Objective Physical Exam Last Vital Signs Date Time Temp Pulse Resp B/P (MAP) Pulse Ox O2 Delivery O2 Flow Rate FiO2 01/27/18 08:00 97.2 95 21 124/71 95 Room Air 97.2 01/27/18 04:00 21 Laboratory Tests Test 01/27/18 00:20 01/27/18 00:28 White Blood Count 13.8 K/UL (4.8-10.8) H Red Blood Count 5.07 M/UL (4.70-6.10) Hemoglobin 14.8 G/DL (14.2-18.0) Hematocrit 42.7 % (42.0-52.0) Mean Corpuscular Volume 84 FL (80-99) Mean Corpuscular Hemoglobin 29.2 PG (27.0-31.0) Mean Corpuscular Hemoglobin Concent 34.8 G/DL (32.0-36.0) Red Cell Distribution Width 11.9 % (11.6-14.8) Platelet Count 247 K/UL (150-450) Mean Platelet Volume 7.7 FL (6.5-10.1) Neutrophils (%) (Auto) 70.5 % (45.0-75.0) Lymphocytes (%) (Auto) 20.7 % (20.0-45.0) Monocytes (%) (Auto) 6.8 % (1.0-10.0) Eosinophils (%) (Auto) 1.2 % (0.0-3.0) Basophils (%) (Auto) 0.9 % (0.0-2.0) Prothrombin Time 8.8 SEC (9.30-11.50) L Prothromb Time International Ratio 0.8 (0.9-1.1) L Activated Partial Thromboplast Time 26 SEC (23-33) Sodium Level 138 MMOL/L (136-145) Potassium Level 4.0 MMOL/L (3.5-5.1) Chloride Level 103 MMOL/L (98-107) Carbon Dioxide Level 28 MMOL/L (21-32) Anion Gap 7 mmol/L (5-15) Blood Urea Nitrogen 16 mg/dL (7-18) Creatinine 0.9 MG/DL (0.55-1.30) Estimat Glomerular Filtration Rate > 60 mL/min (>60) Glucose Level 154 MG/DL (74-106) H Calcium Level 9.0 MG/DL (8.5-10.1) Magnesium Level 1.8 MG/DL (1.8-2.4) Total Bilirubin 0.3 MG/DL (0.2-1.0) Aspartate Amino Transf (AST/SGOT) 19 U/L (15-37) Alanine Aminotransferase (ALT/SGPT) 31 U/L (12-78) Alkaline Phosphatase 73 U/L (46-116) Troponin I 0.000 ng/mL (0.000-0.056) Pro-B-Type Natriuretic Peptide 146 pg/mL (0-125) H Total Protein 6.7 G/DL (6.4-8.2) Albumin 3.8 G/DL (3.4-5.0) Globulin 2.9 g/dL Albumin/Globulin Ratio 1.3 (1.0-2.7) Urine Color Yellow Urine Appearance Clear Urine pH 6 (4.5-8.0) Urine Specific [place] 1.015 (1.005-1.035) Urine Protein Negative (NEGATIVE) Urine Glucose (UA) Negative (NEGATIVE) Urine Ketones Negative (NEGATIVE) Urine Occult Blood Negative (NEGATIVE) Urine Nitrite Negative (NEGATIVE) Urine Bilirubin Negative (NEGATIVE) Urine Urobilinogen Normal MG/DL (0.0-1.0) Urine Leukocyte Esterase Negative (NEGATIVE) Impression/Recommendations Recommendations #[id number] OLIVE WEAVER Jan 27, 2018 11:17
[2018-01-27] MEDS: NovoLOG Insulin Flexpen SUBQ SCH ×3 (12:47→21:14)
[2018-01-27] MEDS: Aspirin EC 81mg tab ORAL SCH (13:57)
--- NOTE | 2018-01-27 15:08 | Consultation ---
History of Present Illness General Date patient seen: Jan 27, 2018 Chief Complaint: Chest Pain Referring physician: Dr. Sepulveda Reason for Consultation: chest pain, dyspnea Present Illness HPI 37-year-old male, wtih history of stroke 2 months ago, diabetes, homeless, very poor historian presented to ER with chest pain. Also complaining of vague generalized chest pain. No headache no neck pain no fever no chills. he was in the hospital 2 days ago and left because he said "they were not helping me" Allergies: Coded Allergies: No Known Allergies (Unverified , 02/06/15) Medication History Scheduled Divalproex Sodium* (Depakote*), 500 MG PO Q12HR, (Reported) Insulin Aspart (Novolog Flexpen), 30 SQ TID, (Reported) Insulin Detemir (Levemir), 30 SUBQ BID, (Reported) Metformin Hcl* (Metformin Hcl*), 500 MG ORAL TIDAC, (Reported) Pregabalin* (Lyrica*), 75 MG ORAL THREE TIMES A DAY, (Reported) Quetiapine Fumarate* (Seroquel*), 300 MG ORAL BEDTIME, (Reported) Ziprasidone Hcl* (Geodon*), 20 MG ORAL DAILY, (Reported) Scheduled PRN Hydromorphone Hcl (Dilaudid), 1 MG PO Q4HR PRN for For Pain, (Reported) Oxycodone/Acetaminophen 5-325* (Percocet 5-325 Mg Tablet*), 1 TAB ORAL Q4H PRN for For Pain, (Reported) Zolpidem Tartrate* (Ambien*), 5 MG ORAL BEDTIME PRN for Insomnia, (Reported) Miscellaneous Medications Insulin Aspart* (Novolog*), 0 SUBQ, (Reported) Insulin Aspart* (Novolog*), 0 SUBQ, (Reported) Unable to Obtain Medications (Unable To Obtain Meds), (Reported) Patient History Healthcare decision maker Resuscitation status Full Code Advanced Directive on File Past Medical/Surgical History Past Medical/Surgical History: (1) Acute coronary syndrome (2) Opiate dependence (3) Anxiety (4) Diabetes mellitus (5) hemiparesis/hemiataxia , left. acute Review of Systems All Other Systems: negative except mentioned in HPI Physical Exam General Appearance: WD/WN Lines, tubes and drains: peripheral HEENT: normocephalic, atraumatic Neck: non-tender, normal alignment Respiratory/Chest: chest wall non-tender, lungs clear Breasts: no masses Cardiovascular/Chest: normal rate Abdomen: non tender, soft Genitourinary/Rectal: normal genital exam Extremities: normal range of motion, non-tender, normal inspection Last 24 Hour Vital Signs Date Time Temp Pulse Resp B/P (MAP) Pulse Ox O2 Delivery O2 Flow Rate FiO2 01/27/18 12:00 97.9 92 19 123/69 96 Room Air 97.9 01/27/18 08:00 97.2 95 21 124/71 95 Room Air 97.2 01/27/18 04:00 97.5 84 18 113/72 96 Room Air 21 97.5 01/27/18 04:00 87 01/27/18 03:04 88 01/27/18 02:40 97.3 87 20 130/78 97 Room Air 21 97.3 01/27/18 02:35 97.7 101 18 139/70 96 Room Air 97.7 01/27/18 02:00 97.0 97 22 124/73 95 Room Air 97.0 01/27/18 01:26 97.7 01/27/18 01:04 97.7 101 18 139/70 96 Room Air 97.7 01/27/18 00:56 98.2 01/26/18 23:44 119 18 01/26/18 23:25 98.2 119 18 124/74 96 Room Air 98.2 Intake and Output 01/26/18 01/27/18 19:00 07:00 Intake Total 240 ml Balance 240 ml Intake Oral 240 ml # Voids 2 # Bowel Movements 1 Laboratory Tests Test 01/27/18 00:20 01/27/18 00:28 White Blood Count 13.8 K/UL (4.8-10.8) H Red Blood Count 5.07 M/UL (4.70-6.10) Hemoglobin 14.8 G/DL (14.2-18.0) Hematocrit 42.7 % (42.0-52.0) Mean Corpuscular Volume 84 FL (80-99) Mean Corpuscular Hemoglobin 29.2 PG (27.0-31.0) Mean Corpuscular Hemoglobin Concent 34.8 G/DL (32.0-36.0) Red Cell Distribution Width 11.9 % (11.6-14.8) Platelet Count 247 K/UL (150-450) Mean Platelet Volume 7.7 FL (6.5-10.1) Neutrophils (%) (Auto) 70.5 % (45.0-75.0) Lymphocytes (%) (Auto) 20.7 % (20.0-45.0) Monocytes (%) (Auto) 6.8 % (1.0-10.0) Eosinophils (%) (Auto) 1.2 % (0.0-3.0) Basophils (%) (Auto) 0.9 % (0.0-2.0) Prothrombin Time 8.8 SEC (9.30-11.50) L Prothromb Time International Ratio 0.8 (0.9-1.1) L Activated Partial Thromboplast Time 26 SEC (23-33) Sodium Level 138 MMOL/L (136-145) Potassium Level 4.0 MMOL/L (3.5-5.1) Chloride Level 103 MMOL/L (98-107) Carbon Dioxide Level 28 MMOL/L (21-32) Anion Gap 7 mmol/L (5-15) Blood Urea Nitrogen 16 mg/dL (7-18) Creatinine 0.9 MG/DL (0.55-1.30) Estimat Glomerular Filtration Rate > 60 mL/min (>60) Glucose Level 154 MG/DL (74-106) H Calcium Level 9.0 MG/DL (8.5-10.1) Magnesium Level 1.8 MG/DL (1.8-2.4) Total Bilirubin 0.3 MG/DL (0.2-1.0) Aspartate Amino Transf (AST/SGOT) 19 U/L (15-37) Alanine Aminotransferase (ALT/SGPT) 31 U/L (12-78) Alkaline Phosphatase 73 U/L (46-116) Troponin I 0.000 ng/mL (0.000-0.056) Pro-B-Type Natriuretic Peptide 146 pg/mL (0-125) H Total Protein 6.7 G/DL (6.4-8.2) Albumin 3.8 G/DL (3.4-5.0) Globulin 2.9 g/dL Albumin/Globulin Ratio 1.3 (1.0-2.7) Urine Color Yellow Urine Appearance Clear Urine pH 6 (4.5-8.0) Urine Specific [place] 1.015 (1.005-1.035) Urine Protein Negative (NEGATIVE) Urine Glucose (UA) Negative (NEGATIVE) Urine Ketones Negative (NEGATIVE) Urine Occult Blood Negative (NEGATIVE) Urine Nitrite Negative (NEGATIVE) Urine Bilirubin Negative (NEGATIVE) Urine Urobilinogen Normal MG/DL (0.0-1.0) Urine Leukocyte Esterase Negative (NEGATIVE) Height (Feet): 5 Height (Inches): 11.00 Weight (Pounds): 237 Medications Current Medications Medications (Trade) Dose Ordered Sig/Sofia Route PRN Reason Start Time Stop Time Status Last Admin Dose Admin Acetaminophen (Tylenol) 650 mg Q4H PRN ORAL fever>100.5 01/27/18 07:30 02/26/18 07:29 Al Hydroxide/Mg Hydroxide (Mylanta II) 30 ml Q6H PRN ORAL dyspepsia 01/27/18 07:30 02/26/18 07:29 Aspirin (Ecotrin) 81 mg DAILY ORAL 01/27/18 13:00 02/26/18 12:59 01/27/18 13:57 Dextrose (Dextrose 50%) 25 ml PRN PRN IV BS 60 TO 69 MG/DL 01/27/18 07:45 02/26/18 07:44 Dextrose (Dextrose 50%) 50 ml PRN PRN IV BS LESS THAN 60 MG/DL 01/27/18 08:00 02/26/18 07:59 Divalproex Sodium (Depakote ER) 500 mg EVERY 12 HOURS ORAL 01/27/18 09:00 02/26/18 08:59 01/27/18 10:18 Heparin Sodium (Porcine) (Heparin 5000 units/ml) 5,000 units EVERY 12 HOURS SUBQ 01/27/18 09:00 02/26/18 08:59 01/27/18 10:43 Insulin Aspart (NovoLOG) BEFORE MEALS AND HS SUBQ 01/27/18 11:30 02/26/18 11:29 01/27/18 12:47 Lorazepam (Ativan 2mg/ml 1ml) 0.5 mg Q4H PRN IV For Anxiety 01/27/18 07:30 02/03/18 07:29 Morphine Sulfate (Morphine Sulfate) 1 mg Q4H PRN IVP Severe Pain (Pain Scale 7-10) 01/27/18 09:00 02/03/18 08:59 01/27/18 09:05 Nicotine (Nicoderm) 1 patch Q24H TDERMAL 01/27/18 13:30 02/26/18 13:29 01/27/18 13:58 Ondansetron HCl (Zofran) 4 mg Q6H PRN IVP Nausea & Vomiting 01/27/18 07:30 02/26/18 07:29 Oxycodone/ Acetaminophen (Percocet 5-325) 1 tab Q4H PRN ORAL moderate pain (4 to 6) 01/27/18 07:30 02/03/18 07:29 Polyethylene Glycol (Miralax) 17 gm HSPRN PRN ORAL Constipation 01/27/18 07:30 02/26/18 07:29 Pregabalin (Lyrica) 75 mg TID@1000,1500,2000 ORAL 01/27/18 10:00 02/26/18 09:59 01/27/18 10:17 Promethazine HCl/ Codeine (Phenergan with Codeine) 5 ml Q4H PRN ORAL For Cough 01/27/18 07:30 02/26/18 07:29 Quetiapine Fumarate (SEROquel) 300 mg BEDTIME ORAL 01/27/18 21:00 02/26/18 20:59 Theophylline (Bobby-Dur) 100 mg EVERY 12 HOURS ORAL 01/27/18 09:00 02/26/18 08:59 01/27/18 10:16 Ziprasidone (Geodon) 20 mg TWICE A DAY ORAL 01/27/18 09:00 02/26/18 08:59 01/27/18 10:17 Zolpidem Tartrate (Ambien) 5 mg HSPRN PRN ORAL Insomnia 01/27/18 07:30 02/03/18 07:29 Assessment/Plan Problem List: (1) Acute coronary syndrome ICD Codes: I24.9 - Acute ischemic heart disease, unspecified SNOMED: 754032130 (2) Opiate dependence ICD Codes: F11.20 - Opioid dependence SNOMED: 67249805 (3) Generalized weakness ICD Codes: R53.1 - Weakness SNOMED: 12219126 (4) hemiparesis/hemiataxia , left. 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
[2018-01-27] MEDS: Lexiscan 0.4mg/5ml syringe IV SCH (15:15)
--- NOTE | 2018-01-27 16:31 | Cardiology Report ---
APPROVED REPORT EKG Measurement Heart [id number] [id number] Sinus tachycardia Otherwise normal ECG
--- NOTE | 2018-01-27 18:00 | History and Physical Report ---
DATE OF ADMISSION: 01/27/2018 TIME: 2 p.m. CONSULTANTS: 1. Hayes Kirk M.D. 2. Hernan Reilly M.D. 3. Lashanda Pham M.D. CHIEF COMPLAINT: Chest pain, shortness of breath, and left weakness. BRIEF HISTORY: This is a 37-year-old male, who [facility] became homeless, presents with two days of increased left chest pain radiating to left arm, slight weakness, and was very short of breath. The patient came to the [facility], diagnosed with the above, and admitted to telemetry for further care. Currently, calm in bed. Chest pain and left arm pain 8/10. No complaints. PAST MEDICAL HISTORY: Diabetes, hypertension, and chronic pain. PAST SURGICAL HISTORY: Back and neck. MEDICATION: Include Seroquel, NicoDerm, NovoLog, Lyrica, Geodon, Depakote, heparin, Bobby-Dur, morphine, dextrose, Percocet, and MiraLAX. ALLERGIES: Denies. SOCIAL HISTORY: Positive smoking. No alcohol. No intravenous drug use. FAMILY HISTORY: Noncontributory. REVIEW OF SYSTEMS: Slight chest pain. Slightly short of breath. No nausea, vomiting, or diarrhea. PHYSICAL EXAMINATION: GENERAL: Calm in bed, oriented x3, and in no acute distress. VITAL SIGNS: Temperature 97, pulse 92, respirations 19, and blood pressure 123/69. CARDIOVASCULAR: No murmur. LUNGS: Distant and clear. ABDOMEN: Bowel sounds positive. Nontender. Nondistended. EXTREMITIES: No cyanosis or edema. NEUROLOGIC: The patient moves all extremities. Slightly weak. LABORATORY AND DIAGNOSTIC DATA: White count 13.8, otherwise CBC is normal. BMP show glucose 154, otherwise BMP is normal. INR is 0.8. Urinalysis is negative. ASSESSMENT: 1. Chest pain and left arm pain. 2. Shortness of breath. 3. Left hemiparesis. 4. Diabetes. 5. Hypertension. 6. Chronic pain. 7. Psych history. PLAN: 1. Continue premeds. 2. Troponin q.8 h. x3. 3. EKG. 4. O2 and pulmonary treatment. 5. Pain control. 6. Blood pressure and blood sugar control. 7. Resume home medications. 8. We will continue to follow this patient. Aniceto Sepulveda D.O. DR: [place] JOB#: [id number] CC:
--- NOTE | 2018-01-27 18:30 | Consultation ---
DATE OF CONSULTATION: 01/27/2018 NEUROLOGICAL CONSULTATION CONSULTING PHYSICIAN: Hernan Reilly M.D. REQUESTING PHYSICIAN: Aniceto Sepulveda D.O. HISTORY OF PRESENT ILLNESS: The patient is a 37-year-old man, seen in neurological consultation to evaluate possible acute stroke. According to the patient, approximately two months ago, he had episodes of left-sided weakness, for which he was hospitalized and then following day, he was discharged as his symptoms obviously were improving. He was symptom-free until couple of days ago when he developed weakness in left upper and left lower extremity and dysarthric speech. When presented to this hospital, he was complaining of chest pain, high blood sugars, vague generalized chest pain. The patient informed that he now resides in [place], [place] and two days ago when developed left-sided weakness, he was seen in the emergency room, but then released home. Following current admission, vital signs were stable, heart rate 119, had left-sided weakness. He had a stat CT of the brain done. This was negative study. No acute abnormalities. EKG, normal sinus rhythm. Chest x-ray, no acute disease noted. Lab work was obtained revealing a CBC study with WBC of 13.8. Normal coagulation panel, urinalysis, chemistry panel with BNP of 146 and glucose 154, but otherwise normal including normal troponin. Following admission until present, there was not much changes in his status. PAST MEDICAL HISTORY: The patient has a history of suboccipital craniotomy, surgery in upper and lower back, hypertension, diabetes, diabetic neuropathy, and chronic psychiatric disorder. MEDICATIONS: The patient's treatment prior to admission included Depakote 500 mg b.i.d., Dilaudid, insulin, metformin, Percocet p.r.n., Lyrica 75 mg t.i.d., Seroquel 300 mg at bedtime, Geodon 20 mg daily, and zolpidem. ALLERGIES: None reported. FAMILY HISTORY: Noncontributory. SOCIAL HISTORY: The patient used to be homeless, now lives in apartment, but apparently he will be moving to . REVIEW OF SYSTEMS: Left-sided weakness, abnormal speech, normal swallowing, numbness and weakness in left upper and left lower extremity, difficulty ambulation. Currently, no chest pain. No palpitations. No respiratory difficulties. Denies abdominal pain discomfort. No urine or bowel incontinence. Normal swallowing. Addendum, the patient has been seen in Neurology consultation in 2014 when he presented with left arm numbness, give-away weakness in left leg. This was attributed to previous surgery, namely Chiari malformation type 2 surgery. At that time, MR angiogram of the brain was normal and MRI of the lumbar spine and cervical spine revealed no acute changes. PHYSICAL EXAMINATION: GENERAL: A well-developed, well-nourished man, not in acute distress, lying comfortably in bed. VITAL SIGNS: His vital signs are stable. Blood pressure 144/71 and temperature 97.2 degrees. HEENT: Head, normocephalic. No evidence of trauma. There is suboccipital scarring. MUSCULOSKELETAL: Peripheral pulses 1+ and symmetric. MENTAL STATUS: He is alert and oriented x3 with no evidence of aphasia or apraxia. He is a poor historian, poor concentration, but follows commands. CRANIAL NERVE II: Pupils both responding to light and accommodation. Extraocular movements intact. No nystagmus. CRANIAL NERVE V: Normal corneal responses. Reduced pin sensation on the left side of the face. CRANIAL NERVE VII: No facial asymmetry. CRANIAL NERVE VIII: Normal hearing. CRANIAL NERVES IX THROUGH XII: Normal limits. MOTOR EXAMINATION: Weakness 3/5 left upper and left lower extremity with proper movement in his both arms and legs when turning around and attention is away. There is a give-away weakness in the left lower extremity. This is intermittent. There is action tremor in his left arm and left leg. Deep tendon reflexes depressed, bilaterally symmetric. Plantar responses flexor. No pathological responses. SENSORY EXAMINATION: Decreased response to pin stimulation on left side of the face and left side of the body. Gait unable to test. The patient was able to stand up, but was violently shaking, went back to bed. IMPRESSION: 1. New onset of left sided hemiparesis, hemisensory loss with dysarthria and give-away weakness. Rule out acute stroke, rule out exacerbation of cervical myelopathy following old surgeries. Rule out a psychosomatic disorder. 2. Hypertension. 3. Hyperlipidemia. 4. Diabetes type 2 with diabetic polyneuropathy. RECOMMENDATION: Get MRI of the brain and MRI of the cervical spine. Get PT/OT. Psychiatry reevaluation to adjust the treatment given significant behavioral abnormalities. Treatment will include aspirin and statins. We will follow with you. Thank you for allowing me to see this interesting patient in neurological consultation. Hernan Kiana Reilly DR: BABATUNDE JOB#: [id number] CC:
--- NOTE | 2018-01-27 19:00 | Consultation ---
DATE OF CONSULTATION: 01/27/2018 CARDIOLOGY CONSULTATION CONSULTING PHYSICIAN: Hayes Kirk M.D. REFERRING PHYSICIAN: Aniceto Sepulveda D.O. REASON FOR CONSULTATION: Chest pain. HISTORY OF PRESENT ILLNESS: The patient is a 37-year-old gentleman, who states that he had a stroke about two months ago. The patient also has diabetes who takes insulin as well as hypertension and COPD. The patient presented to the emergency room complaining of chest pain. The patient also had radiation of pain to the left arm. In the emergency room, the patient was noted to have EKG stickers seen on his chest and he states that he lives in and was hospitalized two days ago, but he left because he stated they were not helping him. REVIEW OF SYSTEMS: Performed and was negative other than what was mentioned in the history of present illness. PAST MEDICAL HISTORY: 1. Hypertension. 2. Diabetes. 3. History of prior CVA. 4. Peripheral neuropathy. FAMILY HISTORY: Noncontributory. SOCIAL HISTORY: He apparently has been using drugs including crystal meth, but no urine toxicology screen was not performed yet. PHYSICAL EXAMINATION: VITAL SIGNS: Blood pressure of 122/69, pulse is 92, respirations 18, and temperature 97.9 degrees. HEAD AND NECK: No JVD. LUNGS: Clear. CARDIOVASCULAR: Regular S1 and S2 with no gallop or murmur. ABDOMEN: Soft. EXTREMITIES: No pitting edema. LABORATORY AND DIAGNOSTIC DATA: EKG showed sinus tachycardia, otherwise normal electrocardiogram. Rate is around 105. His labs show INR 0.8. Sodium 138, potassium 4.0, BUN of 16 and creatinine 0.9 and glucose 174. First troponin is negative. BNP is 146. White count 13.8, hemoglobin 14.8, hematocrit 42.7, and platelet count of 247. ASSESSMENT AND PLAN: 1. Chest pain. The pain is atypical. First troponin is negative and EKG does not show any acute ischemic changes. We will repeat cardiac enzymes as well as echocardiogram. Schedule the patient for a nuclear stress test in the morning. 2. Hypertension. Currently, blood pressure is a stable, hold off on antihypertensives. 3. Diabetes. 4. History of prior CVA, on aspirin. 5. Asthma, theophylline. Thank you very much, Dr. Sepulveda, for allowing me to participate in the care of this patient. Please do not hesitate to contact me for any questions regarding my evaluation. Hayes Kirk M.D. DR: ARCADIO JOB#: [id number] CC:
[2018-01-27] MEDS ORDERED: QUEtiapine 200mg tab ORAL SCH (21:00)
[2018-01-28] VITALS: BP 120/54
[2018-01-28 04:00] VITALS: BP 111/64
[2018-01-28] MEDS: Morphine Sulfate 4mg/ml Inj IVP PRN ×5 (05:50→23:03)
[2018-01-28] MEDS: NovoLOG Insulin Flexpen SUBQ SCH ×4 (06:14→21:53)
[2018-01-28 08:00] VITALS: BP 112/68
[2018-01-28] MEDS: Ziprasidone 20mg cap ORAL SCH ×2 (09:30→17:23)
[2018-01-28] MEDS: Aspirin EC 81mg tab ORAL SCH (09:31)
[2018-01-28] MEDS: Depakote ER 500mg tab ORAL SCH ×2 (09:31→21:54)
[2018-01-28] MEDS: Lyrica 75mg cap ORAL SCH ×3 (09:32→21:55)
[2018-01-28] MEDS: Heparin 5000 units/ml inj SUBQ SCH ×2 (09:34→22:00)
[2018-01-28 12:00] VITALS: BP 121/79
--- NOTE | 2018-01-28 12:41 | Cardiology Report ---
APPROVED REPORT EKG Measurement Heart [id number] Normal sinus rhythm Normal ECG
--- NOTE | 2018-01-28 12:57 | General Progress Note ---
Assessment/Plan Problem List: (1) Left arm numbness prob old residual to neck surgery (2) Chest wall pain ICD Codes: R07.89 - Other chest pain SNOMED: 254001800 (3) Diabetes ICD Codes: E11.9 - Type 2 diabetes mellitus without complications SNOMED: 24729615 (4) Chest pain ICD Codes: R07.9 - Chest pain SNOMED: 53543864 Status: unchanged Assessment/Plan ot pt diet pain control cbc bmp am dc plan Subjective Constitutional: Reports: weakness Allergies: Coded Allergies: No Known Allergies (Unverified , 02/06/15) All Systems: reviewed and negative except above Subjective calm in bed sl cp Objective Last 24 Hour Vital Signs Date Time Temp Pulse Resp B/P (MAP) Pulse Ox O2 Delivery O2 Flow Rate FiO2 01/28/18 11:28 Room Air 01/28/18 11:28 Room Air 01/28/18 10:02 97.7 01/28/18 08:00 97.7 86 21 112/68 95 Room Air 97.7 01/28/18 08:00 95 01/28/18 06:40 88 18 94 Room Air 01/28/18 06:38 87 18 94 Room Air 01/28/18 04:00 78 01/28/18 04:00 97.9 86 18 111/64 95 Room Air 97.9 01/28/18 02:31 Room Air 01/28/18 02:31 Room Air 01/28/18 00:00 86 01/28/18 00:00 97.2 87 20 120/54 98 Room Air 97.2 01/27/18 23:04 Room Air 01/27/18 23:04 Room Air 21 01/27/18 20:00 97.5 75 20 111/67 98 Room Air 97.5 01/27/18 20:00 84 01/27/18 18:33 82 18 98 Room Air 21 01/27/18 18:32 94 20 97 Room Air 01/27/18 16:00 84 01/27/18 16:00 97.9 86 21 131/70 96 Room Air 97.9 01/27/18 15:00 92 18 98 Room Air Intake and Output 01/27/18 01/28/18 18:59 06:59 Intake Total 500 ml 400 ml Balance 500 ml 400 ml Intake Oral 500 ml 400 ml # Voids 2 Height (Feet): 5 Height (Inches): 11.00 Weight (Pounds): 237 General Appearance: alert EENT: normal ENT inspection Neck: normal alignment Cardiovascular: normal peripheral pulses, normal rate, regular rhythm Respiratory/Chest: chest wall non-tender, lungs clear, normal breath sounds Abdomen: normal bowel sounds, non tender, soft Extremities: normal inspection Edema: no edema noted Arm (L), no edema noted Arm (R), no edema noted Leg (L), no edema noted Leg (R), no edema noted Pedal (L), no edema noted Pedal (R), no edema noted Generalized Neurologic: responsive, motor weakness Skin: normal pigmentation, warm/dry INDU KEEN Jan 28, 2018 12:57
--- NOTE | 2018-01-28 13:00 | Neurology Progress Note ---
Interim History Interim History Complaints: not better Events: stable Objective Physical Exam Last Vital Signs Date Time Temp Pulse Resp B/P (MAP) Pulse Ox O2 Delivery O2 Flow Rate FiO2 01/28/18 10:02 97.7 01/28/18 08:00 86 21 112/68 95 Room Air 01/28/18 06:40 21 General: well developed, well nourished, no acute distress Head: normocophalic, atraumatic Neck: no rigidity EENT: benign Neurologic Exam Mental Status: awake, alert, oriented x4, other - inappropriate affect Speech: normal speech, no dysarthia Language: normal language, no aphasia Cranial Nerve II: fundus normal, visual wilson, no papilledema Cranial Nerves III, IV, : PERRLA, EOMI, pupils Cranial Nerve V: other - L face numbness Cranial Nerve VII: normal facial expressions Cranial Nerve VIII: normal hearing, no nystagmus Cranial Nerve IX: normal palate elevation, gag response Cranial Nerve X: no voice hoarseness Cranial Nerve XI: SCM symmetric, trapezii function normal Cranial Nerve XII: tongue midline, no tongue atrophy/fasciculations Motor System: normal muscle tone, other - able to lift all limbs poor effort Sensory: other - L hemisensory loss Coordination: other - clumsy L side. Deep Tendon Reflexes: 1+ bicep (L), 1+ bicep (R), 1+ tricep (L), 1+ tricep (R) , 1+ brachioradialis (L), 1+ brachioradialis (R), 1+ knee (L), 1+ knee (R), 1+ ankle (L), 1+ ankle (R) Reflexes: mute plantar (L), mute plantar (R) Impression/Recommendations Problems: (1) hemiparesis/hemiataxia , left. acute (2) Psychosomatic disorder Status: unchanged Recommendations #[id number] pt/ot psych eval hold opiates OLIVE WEAVER Jan 28, 2018 13:00
--- NOTE | 2018-01-28 13:42 | Diagnostic Imaging Report ---
Indication: Altered mental status Technique: MRI the brain performed utilizing T1 sagittal, T2 axial, T1 FLAIR axial, T2 FLAIR axial, T2*GRE and diffusion axial images without gadolinium. Comparison: Noncontrast CT of the head 01/26/2018; MRI of the brain 02/07/2015 Findings: Mild motion degradation. No diffusion abnormalities are seen on diffusion weighted imaging. The sulci, ventricles and cisterns are within normal limits for age and stable compared to the prior exam. There is no shift of midline structures. No significant extra-axial collections of fluid or blood are demonstrated. The sella and parasellar regions are unremarkable. Expected signal flow voids are seen of the vessels of the skull base. Visualized mastoid air cells are clear. Very minimal mucosal thickening noted in some ethmoid air cells. Patient again noted to be status post suboccipital craniotomy. Very minimal downward cerebellar tonsillar herniation stable. IMPRESSION: No evidence of acute infarct. No intracranial hemorrhage. No mass effect, edema or midline shift. Unchanged mild downward cerebellar tonsillar herniation likely reflective of a Chiari I. Evidence of prior suboccipital craniectomy.
--- NOTE | 2018-01-28 13:58 | Diagnostic Imaging Report ---
Indication: Altered mental status Technique: Sagittal T1 FLAIR PROPELLER, sagittal T2 , sagittal STIR, axial T2 PROPELLER, axial 3D COSMIC ASPIR images were obtained through the cervical spine Comparison: 02/07/2015 Findings: Images somewhat degraded by patient motion. There is mild tonsillar herniation. There is evidence of prior suboccipital craniectomy. There is no definite focal cord signal abnormality. There is multilevel degenerative change of the cervical spine with multilevel disc desiccation, disc space narrowing and uncovertebral joint hypertrophy and disc osteophyte complexes. Level by level analysis as below: C2/C3: Unremarkable. C3/C4: Mild to moderate disc disease with uncovertebral joint hypertrophy. There is mild central canal stenosis. Probable mild right foraminal narrowing. C4/C5: There is a moderate-sized disc osteophyte complex with mild to moderate central canal stenosis and bilateral foraminal narrowing. C5/C6: Small disc osteophyte complex with mild indentation of the thecal sac. Question mild foraminal stenosis on the right. C6/C7: Unremarkable. C7/T1: Unremarkable. Imaged paraspinal soft tissues appear grossly unremarkable. No focal abnormality is seen on large field of view localizer sequences. IMPRESSION: Motion degraded exam. No definite focal cord signal abnormality. Multilevel degenerative change of the cervical spine most pronounced at C4-C5. Overall not significantly progressed compared to prior exam of 02/07/2015. Chiari 1 malformation. Status post suboccipital clinically.
[2018-01-28] MEDS: Lexiscan 0.4mg/5ml syringe IV SCH (15:15)
--- NOTE | 2018-01-28 15:19 | Pulmonology Progress Note ---
Assessment/Plan Problems: (1) Acute coronary syndrome (2) Opiate dependence (3) Generalized weakness (4) hemiparesis/hemiataxia , left. acute (5) COPD (chronic obstructive pulmonary disease) (6) Anxiety (7) Diabetes mellitus Assessment/Plan stress test done, Imaging done symptomatic treatment titrate fio2 to sat of 92% respiratory treatment sliding scale Subjective ROS Limited/Unobtainable: No Interval Events: comfortable, nad Allergies: Coded Allergies: No Known Allergies (Unverified , 02/06/15) Objective Last 24 Hour Vital Signs Date Time Temp Pulse Resp B/P (MAP) Pulse Ox O2 Delivery O2 Flow Rate FiO2 01/28/18 14:31 97.7 01/28/18 12:00 77 01/28/18 11:28 Room Air 01/28/18 11:28 Room Air 01/28/18 10:02 97.7 01/28/18 08:00 97.7 86 21 112/68 95 Room Air 97.7 01/28/18 08:00 95 01/28/18 06:40 88 18 94 Room Air 01/28/18 06:38 87 18 94 Room Air 01/28/18 04:00 78 01/28/18 04:00 97.9 86 18 111/64 95 Room Air 97.9 01/28/18 02:31 Room Air 21 01/28/18 02:31 Room Air 21 01/28/18 00:00 86 01/28/18 00:00 97.2 87 20 120/54 98 Room Air 97.2 01/27/18 23:04 Room Air 01/27/18 23:04 Room Air 01/27/18 20:00 97.5 75 20 111/67 98 Room Air 97.5 01/27/18 20:00 84 01/27/18 18:33 82 18 98 Room Air 21 01/27/18 18:32 94 20 97 Room Air 01/27/18 16:00 84 01/27/18 16:00 97.9 86 21 131/70 96 Room Air 97.9 Intake and Output 01/27/18 01/28/18 19:00 07:00 Intake Total 500 ml 400 ml Balance 500 ml 400 ml Intake Oral 500 ml 400 ml # Voids 2 General Appearance: WD/WN HEENT: normocephalic, atraumatic Respiratory/Chest: chest wall non-tender, lungs clear Cardiovascular: normal peripheral pulses, normal rate Abdomen: normal bowel sounds, soft, non tender, no scars Extremities: no cyanosis 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 Lymphatic: no neck adenopathy Current Medications Medications (Trade) Dose Ordered Sig/Sofia Route PRN Reason Start Time Stop Time Status Last Admin Dose Admin Acetaminophen (Tylenol) 650 mg Q4H PRN ORAL fever>100.5 01/27/18 07:30 02/26/18 07:29 Al Hydroxide/Mg Hydroxide (Mylanta II) 30 ml Q6H PRN ORAL dyspepsia 01/27/18 07:30 02/26/18 07:29 Aspirin (Ecotrin) 81 mg DAILY ORAL 01/27/18 13:00 02/26/18 12:59 01/28/18 09:31 Dextrose (Dextrose 50%) 25 ml PRN PRN IV BS 60 TO 69 MG/DL 01/27/18 07:45 02/26/18 07:44 Dextrose (Dextrose 50%) 50 ml PRN PRN IV BS LESS THAN 60 MG/DL 01/27/18 08:00 02/26/18 07:59 Divalproex Sodium (Depakote ER) 500 mg EVERY 12 HOURS ORAL 01/27/18 09:00 02/26/18 08:59 01/28/18 09:31 Heparin Sodium (Porcine) (Heparin 5000 units/ml) 5,000 units EVERY 12 HOURS SUBQ 01/27/18 09:00 02/26/18 08:59 01/28/18 09:34 Insulin Aspart (NovoLOG) BEFORE MEALS AND HS SUBQ 01/27/18 11:30 02/26/18 11:29 01/28/18 06:14 Lorazepam (Ativan 2mg/ml 1ml) 0.5 mg Q4H PRN IV For Anxiety 01/27/18 07:30 02/03/18 07:29 Morphine Sulfate (Morphine Sulfate) 1 mg Q4H PRN IVP Severe Pain (Pain Scale 7-10) 01/27/18 09:00 02/03/18 08:59 01/28/18 14:31 Nicotine (Nicoderm) 1 patch Q24H TDERMAL 01/27/18 13:30 02/26/18 13:29 01/28/18 14:31 Ondansetron HCl (Zofran) 4 mg Q6H PRN IVP Nausea & Vomiting 01/27/18 07:30 02/26/18 07:29 Oxycodone/ Acetaminophen (Percocet 5-325) 1 tab Q4H PRN ORAL moderate pain (4 to 6) 01/27/18 07:30 02/03/18 07:29 Polyethylene Glycol (Miralax) 17 gm HSPRN PRN ORAL Constipation 01/27/18 07:30 02/26/18 07:29 Pregabalin (Lyrica) 75 mg TID@1000,1500,2000 ORAL 01/27/18 10:00 02/26/18 09:59 01/28/18 09:32 Promethazine HCl/ Codeine (Phenergan with Codeine) 5 ml Q4H PRN ORAL For Cough 01/27/18 07:30 02/26/18 07:29 Quetiapine Fumarate (SEROquel) 300 mg BEDTIME ORAL 01/27/18 21:00 02/26/18 20:59 01/27/18 21:11 Regadenoson (Lexiscan) 0.4 mg ONCE IV 01/27/18 15:15 01/28/18 23:59 Theophylline (Bobby-Dur) 100 mg EVERY 12 HOURS ORAL 01/29/18 09:00 02/28/18 08:59 Ziprasidone (Geodon) 20 mg TWICE A DAY ORAL 01/27/18 09:00 02/26/18 08:59 01/28/18 09:30 Zolpidem Tartrate (Ambien) 5 mg HSPRN PRN ORAL Insomnia 01/27/18 07:30 02/03/18 07:29 Lashanda Pham MD Jan 28, 2018 15:19
[2018-01-28 16:00] VITALS: BP 123/67
--- NOTE | 2018-01-28 16:53 | Cardiac Electrophysiology PN ---
Assessment/Plan Assessment/Plan 1. Typical Chest pain. Ruled out for WA. EKG does not show any acute ischemic changes. Echocardiogram EF 70%. Nuclear stress test done today. Results pending 2. Hypertension. Stable, hold off on antihypertensives. 3. Diabetes. 4. History of prior CVA, on aspirin. 5. Asthma, theophylline. JOSEFINA RN Subjective Subjective Comfortable in NAD. No chest pain or SOB or any arrhythmias. Objective Last 24 Hour Vital Signs Date Time Temp Pulse Resp B/P (MAP) Pulse Ox O2 Delivery O2 Flow Rate FiO2 01/28/18 16:02 97.7 01/28/18 16:00 98.1 97 18 123/67 96 Room Air 21 98.1 01/28/18 15:25 92 18 96 Room Air 21 01/28/18 15:20 92 20 96 Room Air 21 01/28/18 14:31 97.7 01/28/18 12:00 77 01/28/18 12:00 97.5 84 20 121/79 95 Room Air 21 97.5 01/28/18 11:28 Room Air 21 01/28/18 11:28 Room Air 21 01/28/18 10:31 97.7 01/28/18 10:31 97.7 01/28/18 10:02 97.7 01/28/18 08:00 97.7 86 21 112/68 95 Room Air 97.7 01/28/18 08:00 95 01/28/18 06:40 88 18 94 Room Air 21 01/28/18 06:38 87 18 94 Room Air 21 01/28/18 04:00 78 01/28/18 04:00 97.9 86 18 111/64 95 Room Air 97.9 01/28/18 02:31 Room Air 21 01/28/18 02:31 Room Air 21 01/28/18 00:00 86 01/28/18 00:00 97.2 87 20 120/54 98 Room Air 97.2 01/27/18 23:04 Room Air 21 01/27/18 23:04 Room Air 21 01/27/18 20:00 97.5 75 20 111/67 98 Room Air 97.5 01/27/18 20:00 84 01/27/18 18:33 82 18 98 Room Air 21 01/27/18 18:32 94 20 97 Room Air Intake and Output 01/27/18 01/28/18 19:00 07:00 Intake Total 500 ml 400 ml Balance 500 ml 400 ml Intake Oral 500 ml 400 ml # Voids 2 Objective HEAD AND NECK: No JVD. LUNGS: Clear. CARDIOVASCULAR: Regular S1 and S2 with no gallop or murmur. ABDOMEN: Soft. EXTREMITIES: No pitting edema. Hayes Kirk MD Jan 28, 2018 16:53
--- NOTE | 2018-01-28 17:00 | Progress Note ---
DATE: 01/28/2018 SUBJECTIVE: The patient is a 37-year-old male patient with chest pain. He has come confusion and disorganized thought process and mood lability and increased depression. That is why, his attending has requested daily psychiatric consultation. Diagnosis, schizoaffective, bipolar type. MENTAL STATUS EXAMINATION: The patient is a 37-year-old male. Appearance is disheveled. Attitude is irritable and agitated. Affect guarded and restricted. Intellect poor. Mood depressed and anxious. Motor activity, psychomotor agitation. Attention span is poor. Orientation x2. Speech is pressured. Thought process, disorganized and illogical. Thought content, no auditory hallucinations or paranoid delusions. Insight and judgment is poor. DIAGNOSIS: Schizoaffective, bipolar type. PLAN: Plan for this patient is to treat him with Geodon 20 mg twice a day, Depakote 500 mg twice a day, Seroquel 300 mg at bedtime. Provided 18-20 minutes of supportive therapy. Chart is reviewed and discussed with staff. Seen and assessed in his room. Charmaine Victor M.D. DR: REBECCA JOB#: [id number] CC:
[2018-01-28 20:00] VITALS: BP 120/65
[2018-01-29] VITALS: BP 119/64
--- NOTE | 2018-01-29 00:15 | Consultation ---
DATE OF CONSULTATION: 01/27/2018 NOTE: POOR AUDIO HISTORY OF PRESENT ILLNESS: The patient is a 37-year-old male patient. He was admitted to [facility] secondary to chest pain and dizziness. This patient has lot of mood lability and agitation worsened by the stress of his medical illness. That is why his attending physician requested daily psychiatric consultation. This patient to be seen by Psychiatry. I saw and assessed him at bedside. He continues to be disorganized. He does have some mood lability. He has got no logical plan for own his self-care, feelings of helplessness and hopelessness, low energy, poor appetite, and lost of interest in activity. Insight and judgment is poor attending physician has requested daily psychiatric consultation. MEDICATIONS: As far as psychotropic medications, Geodon 20 mg b.i.d., Depakote 500 mg twice a day, and Seroquel 300 mg at bedtime. SOCIAL HISTORY: He is financially supported by [employer] and Medicare . He is currently homeless. SUBSTANCE ABUSE HISTORY: Denies any drug and alcohol use. . PSYCHIATRIC HISTORY: Schizoaffective, bipolar type. He has multiple psychiatric admissions. STRENGTHS: He is motivated to get better. WEAKNESSES: He is impulsive . MENTAL STATUS EXAMINATION: The patient is a 37-year-old male. Appearance is disheveled. Attitude is irritable and agitated. Affect is guarded and restricted. Intellect poor. Mood depressed and anxious. Motor activity, psychomotor agitation. Attention span is poor. Orientation x2. Speech is pressured. Thought process, disorganized. Thought content, paranoid delusions and auditory hallucinations. Insight and judgment is poor. DIAGNOSES: 1. Schizoaffective, bipolar type. 2. Medical problems, chest pain. 3. Psychosocial stressors, financial. PLAN: I am going to restart him on Geodon 20 mg twice a day for psychosis, Depakote 500 mg twice a day , and Seroquel 300 mg at bedtime. Provide 20 minutes supportive therapy and encourage him to interact appropriately with staff and other patients. Chart reviewed and discussed with staff. The patient was seen and assessed in his room . Charmaine Victor M.D. DR: Shania JOB#: [id number] CC:
[2018-01-29 04:00] VITALS: BP 107/66
[2018-01-29] MEDS: Morphine Sulfate 4mg/ml Inj IVP PRN ×5 (04:27→21:27)
[2018-01-29] MEDS: NovoLOG Insulin Flexpen SUBQ SCH ×4 (06:05→21:29)
[2018-01-29 08:00] VITALS: BP 118/66
--- NOTE | 2018-01-29 09:09 | Cardiac Electrophysiology PN ---
Assessment/Plan Assessment/Plan 1. Atypical Chest pain. Ruled out for IA. EKG does not show any acute ischemic changes. Echocardiogram EF 70%. Nuclear stress test done yesterday. Results still pending 2. Hypertension. Stable off on antihypertensives. 3. Diabetes. 4. History of prior CVA, on aspirin. 5. Asthma, theophylline. JOSEFINA RN Subjective Subjective Comfortable in NAD. No chest pain or SOB . Objective Last 24 Hour Vital Signs Date Time Temp Pulse Resp B/P (MAP) Pulse Ox O2 Delivery O2 Flow Rate FiO2 01/29/18 08:28 97.5 01/29/18 07:38 Room Air 01/29/18 07:37 Room Air 01/29/18 04:00 96 01/29/18 04:00 97.5 91 22 107/66 97 Room Air 21 97.5 01/29/18 03:06 Room Air 01/29/18 03:06 Room Air 01/29/18 00:00 96.9 99 20 119/64 99 Room Air 21 96.9 01/29/18 00:00 98 01/28/18 23:11 91 20 97 Room Air 21 01/28/18 23:08 91 20 97 Room Air 21 01/28/18 20:00 98.6 98 18 120/65 97 Room Air 21 98.6 01/28/18 20:00 97 01/28/18 19:23 Room Air 21 01/28/18 19:20 96 20 97 Room Air 21 01/28/18 18:49 97.7 01/28/18 17:07 97.7 01/28/18 16:02 97.7 01/28/18 16:00 98.1 97 18 123/67 96 Room Air 21 98.1 01/28/18 16:00 78 01/28/18 15:25 92 18 96 Room Air 21 01/28/18 15:20 92 20 96 Room Air 21 01/28/18 14:31 97.7 01/28/18 12:00 77 01/28/18 12:00 97.5 84 20 121/79 95 Room Air 21 97.5 01/28/18 11:28 Room Air 21 01/28/18 11:28 Room Air 21 01/28/18 10:31 97.7 01/28/18 10:02 97.7 Intake and Output 01/28/18 01/29/18 19:00 07:00 Intake Total 350 ml 600 ml Output Total 1200 ml 800 ml Balance -850 ml -200 ml Intake Oral 350 ml 600 ml Output Urine Total 1200 ml 800 ml Laboratory Tests Test 01/28/18 18:25 Urine Opiates Screen Negative (NEGATIVE) Urine Barbiturates Screen Negative (NEGATIVE) Phencyclidine (PCP) Screen Negative (NEGATIVE) Urine Amphetamines Screen Negative (NEGATIVE) Urine Benzodiazepines Screen Negative (NEGATIVE) Urine Cocaine Screen Negative (NEGATIVE) Urine Marijuana (THC) Screen Negative (NEGATIVE) Objective HEAD AND NECK: No JVD. LUNGS: Clear. CARDIOVASCULAR: Regular S1 and S2 with no gallop or murmur. ABDOMEN: Soft. EXTREMITIES: No pitting edema. Hayes Kirk MD Jan 29, 2018 09:09
--- NOTE | 2018-01-29 09:23 | Diagnostic Imaging Report ---
Indications: Chest pain Technique: Single day single isotope protocol utilized. Initially, resting images obtained using IV administration 9.9 millicuries 99M technetium Myoview. Subsequently, patient underwent lexiscan stress testing. See cardiology report for details. During Lexiscan infusion, IV administration 30.8 mCi 99 M technetium Myoview. SPECT and planar images obtained. SPECT images gated to 8 phases of the cardiac cycle were also obtained, and reformatted into cine images for evaluation of ejection fraction. Comparison: Findings: Presence or absence of symptoms during infusion is not described on the cardiology report. Per cardiology report, resting EKG demonstrates normal sinus rhythm presence or absence of EKG changes during the infusion is not described on the cardiology report. Imaging demonstrates no fixed or reversible poststress perfusion defects. Normal cardiac chamber size.. Calculated post stress ejection fraction 68%. No focal wall motion abnormality demonstrated. Impression: Nonischemic clinical response to pharmacologic stress, per cardiology report Nonischemic electrocardiographic response to pharmacologic stress, per cardiology report No imaging findings to suggest ischemia, at level of stress achieved. Calculated post stress ejection fraction 68%
[2018-01-29] MEDS: Theophylline ER 100mg ORAL SCH ×2 (09:31→21:27)
[2018-01-29] MEDS: Depakote ER 500mg tab ORAL SCH ×2 (09:31→21:27)
[2018-01-29] MEDS: Aspirin EC 81mg tab ORAL SCH (09:31)
[2018-01-29] MEDS: Ziprasidone 20mg cap ORAL SCH ×2 (09:31→18:00)
[2018-01-29] MEDS: Lyrica 75mg cap ORAL SCH ×3 (09:32→21:27)
[2018-01-29] MEDS: Heparin 5000 units/ml inj SUBQ SCH ×2 (09:36→21:28)
[2018-01-29 10:10] LABS: BASOPHILS % (AUTO) 0.9 % (0.0-2.0); EOSINOPHILS % (AUTO) 2.6 % (0.0-3.0); HEMOGLOBIN 14.4 G/DL (14.2-18.0); LYMPHOCYTES % (AUTO) 34.7 % (20.0-45.0); MEAN CORPUSCULAR VOLUME 86 FL (80-99); NEUTROPHILS % (AUTO) 54.9 % (45.0-75.0); PLATELET COUNT 201 K/UL (150-450); RED BLOOD COUNT 5.01 M/UL (4.70-6.10); RED CELL DISTRIBUTION WIDTH 12.1 % (11.6-14.8); WHITE BLOOD COUNT 9.4 K/UL (4.8-10.8)
[2018-01-29 10:14] LABS: ANION GAP 6 mmol/L (5-15); BLOOD UREA NITROGEN 14 mg/dL (7-18); CALCIUM 8.6 MG/DL (8.5-10.1); CARBON DIOXIDE 27 MMOL/L (21-32); CHLORIDE 105 MMOL/L (98-107); CREATININE 0.9 MG/DL (0.55-1.30); POTASSIUM 3.8 MMOL/L (3.5-5.1); SODIUM 138 MMOL/L (136-145)
[2018-01-29 12:00] VITALS: BP 120/65
--- NOTE | 2018-01-29 12:15 | Neurology Progress Note ---
Interim History Interim History ROS Limited/Unobtainable: No Complaints: not better/ mood ok Events: stable/movement improving Objective Physical Exam Last Vital Signs Date Time Temp Pulse Resp B/P (MAP) Pulse Ox O2 Delivery O2 Flow Rate FiO2 01/29/18 10:31 97.5 01/29/18 08:00 93 01/29/18 08:00 20 118/66 97 Room Air 21 Laboratory Tests Test 01/28/18 18:25 01/29/18 09:45 Urine Opiates Screen Negative (NEGATIVE) Urine Barbiturates Screen Negative (NEGATIVE) Phencyclidine (PCP) Screen Negative (NEGATIVE) Urine Amphetamines Screen Negative (NEGATIVE) Urine Benzodiazepines Screen Negative (NEGATIVE) Urine Cocaine Screen Negative (NEGATIVE) Urine Marijuana (THC) Screen Negative (NEGATIVE) White Blood Count 9.4 K/UL (4.8-10.8) Red Blood Count 5.01 M/UL (4.70-6.10) Hemoglobin 14.4 G/DL (14.2-18.0) Hematocrit 43.0 % (42.0-52.0) Mean Corpuscular Volume 86 FL (80-99) Mean Corpuscular Hemoglobin 28.8 PG (27.0-31.0) Mean Corpuscular Hemoglobin Concent 33.6 G/DL (32.0-36.0) Red Cell Distribution Width 12.1 % (11.6-14.8) Platelet Count 201 K/UL (150-450) Mean Platelet Volume 7.2 FL (6.5-10.1) Neutrophils (%) (Auto) 54.9 % (45.0-75.0) Lymphocytes (%) (Auto) 34.7 % (20.0-45.0) Monocytes (%) (Auto) 7.0 % (1.0-10.0) Eosinophils (%) (Auto) 2.6 % (0.0-3.0) Basophils (%) (Auto) 0.9 % (0.0-2.0) Sodium Level 138 MMOL/L (136-145) Potassium Level 3.8 MMOL/L (3.5-5.1) Chloride Level 105 MMOL/L (98-107) Carbon Dioxide Level 27 MMOL/L (21-32) Anion Gap 6 mmol/L (5-15) Blood Urea Nitrogen 14 mg/dL (7-18) Creatinine 0.9 MG/DL (0.55-1.30) Estimat Glomerular Filtration Rate > 60 mL/min (>60) Glucose Level 136 MG/DL (74-106) H Calcium Level 8.6 MG/DL (8.5-10.1) General: well developed, well nourished, no acute distress Head: normocophalic, atraumatic Neck: no rigidity EENT: benign Neurologic Exam Mental Status: awake - arousable, alert, oriented x4, other - inappropriate affect Speech: normal speech, no dysarthia Language: normal language, no aphasia Cranial Nerve II: fundus normal, visual wilson, no papilledema Cranial Nerves III, IV, : PERRLA, EOMI, pupils Cranial Nerve V: other - L face numbness Cranial Nerve VII: normal facial expressions Cranial Nerve VIII: normal hearing, no nystagmus Cranial Nerve IX: normal palate elevation, gag response Cranial Nerve X: no voice hoarseness Cranial Nerve XI: SCM symmetric, trapezii function normal Cranial Nerve XII: tongue midline, no tongue atrophy/fasciculations Motor System: normal muscle tone, other - able to lift all limbs poor effort Sensory: other - L hemisensory loss Coordination: other - clumsy L side. Deep Tendon Reflexes: 1+ bicep (L), 1+ bicep (R), 1+ tricep (L), 1+ tricep (R) , 1+ brachioradialis (L), 1+ brachioradialis (R), 1+ knee (L), 1+ knee (R), 1+ ankle (L), 1+ ankle (R) Reflexes: mute plantar (L), mute plantar (R) Gait: other - with assistance Impression/Recommendations Problems: (1) hemiparesis/hemiataxia , left. acute (2) Psychosomatic disorder Status: unchanged Recommendations #[id number] pt/ot psych eval hold opiates OLIVE WEAVER Jan 29, 2018 12:14
--- NOTE | 2018-01-29 12:53 | General Progress Note ---
Assessment/Plan Problem List: (1) Left arm numbness prob old residual to neck surgery (2) Chest wall pain ICD Codes: R07.89 - Other chest pain SNOMED: 155836722 (3) Diabetes ICD Codes: E11.9 - Type 2 diabetes mellitus without complications SNOMED: 05395853 (4) Chest pain ICD Codes: R07.9 - Chest pain SNOMED: 43506817 Status: unchanged Assessment/Plan ot pt diet pain control cbc bmp am dc plan snf Subjective Constitutional: Reports: weakness Allergies: Coded Allergies: No Known Allergies (Unverified , 02/06/15) All Systems: reviewed and negative except above Subjective calm in bed sl cp Objective Last 24 Hour Vital Signs Date Time Temp Pulse Resp B/P (MAP) Pulse Ox O2 Delivery O2 Flow Rate FiO2 01/29/18 12:42 98.0 01/29/18 12:00 98.0 95 20 120/65 96 Room Air 21 98.0 01/29/18 10:31 97.5 01/29/18 09:32 97.5 01/29/18 08:58 97.5 01/29/18 08:28 97.5 01/29/18 08:00 93 01/29/18 08:00 97.5 91 20 118/66 97 Room Air 21 97.5 01/29/18 07:38 Room Air 01/29/18 07:37 Room Air 01/29/18 04:00 96 01/29/18 04:00 97.5 91 22 107/66 97 Room Air 21 97.5 01/29/18 03:06 Room Air 01/29/18 03:06 Room Air 01/29/18 00:00 96.9 99 20 119/64 99 Room Air 21 96.9 01/29/18 00:00 98 01/28/18 23:11 91 20 97 Room Air 21 01/28/18 23:08 91 20 97 Room Air 21 01/28/18 20:00 98.6 98 18 120/65 97 Room Air 21 98.6 01/28/18 20:00 97 01/28/18 19:23 Room Air 21 01/28/18 19:20 96 20 97 Room Air 21 01/28/18 18:49 97.7 01/28/18 16:02 97.7 01/28/18 16:00 98.1 97 18 123/67 96 Room Air 21 98.1 01/28/18 16:00 78 01/28/18 15:25 92 18 96 Room Air 21 01/28/18 15:20 92 20 96 Room Air 21 01/28/18 14:31 97.7 Intake and Output 01/28/18 01/29/18 19:00 07:00 Intake Total 350 ml 600 ml Output Total 1200 ml 800 ml Balance -850 ml -200 ml Intake Oral 350 ml 600 ml Output Urine Total 1200 ml 800 ml Laboratory Tests 01/28/18 18:25: Urine Opiates Screen Negative, Urine Barbiturates Screen Negative, Phencyclidine (PCP) Screen Negative, Urine Amphetamines Screen Negative, Urine Benzodiazepines Screen Negative, Urine Cocaine Screen Negative, Urine Marijuana (THC) Screen Negative 01/29/18 09:45: White Blood Count 9.4, Red Blood Count 5.01, Hemoglobin 14.4, Hematocrit 43.0, Mean Corpuscular Volume 86, Mean Corpuscular Hemoglobin 28.8, Mean Corpuscular Hemoglobin Concent 33.6, Red Cell Distribution Width 12.1, Platelet Count 201, Mean Platelet Volume 7.2, Neutrophils (%) (Auto) 54.9, Lymphocytes (%) (Auto) 34.7, Monocytes (%) (Auto) 7.0, Eosinophils (%) (Auto) 2.6, Basophils (%) (Auto ) 0.9, Sodium Level 138, Potassium Level 3.8, Chloride Level 105, Carbon Dioxide Level 27, Anion Gap 6, Blood Urea Nitrogen 14, Creatinine 0.9, Estimat Glomerular Filtration Rate > 60, Glucose Level 136H, Calcium Level 8.6 Height (Feet): 5 Height (Inches): 11.00 Weight (Pounds): 237 General Appearance: alert EENT: normal ENT inspection Neck: normal alignment Cardiovascular: normal peripheral pulses, normal rate, regular rhythm Respiratory/Chest: chest wall non-tender, lungs clear, normal breath sounds Abdomen: normal bowel sounds, non tender, soft Extremities: normal inspection Edema: no edema noted Arm (L), no edema noted Arm (R), no edema noted Leg (L), no edema noted Leg (R), no edema noted Pedal (L), no edema noted Pedal (R), no edema noted Generalized Neurologic: responsive, motor weakness Skin: normal pigmentation, warm/dry INDU KEEN Jan 29, 2018 12:53
--- NOTE | 2018-01-29 15:48 | Pulmonology Progress Note ---
Assessment/Plan Problems: (1) Acute coronary syndrome (2) Opiate dependence (3) Generalized weakness (4) hemiparesis/hemiataxia , left. acute (5) COPD (chronic obstructive pulmonary disease) (6) Anxiety (7) Diabetes mellitus Assessment/Plan stress test done, negative Imaging done symptomatic treatment titrate fio2 to sat of 92% respiratory treatment sliding scale All medications and treatment were reviewed./ Subjective ROS Limited/Unobtainable: No Constitutional: Reports: no symptoms HEENT: Repors: no symptoms Respiratory: Reports: no symptoms Allergies: Coded Allergies: No Known Allergies (Unverified , 02/06/15) Objective Last 24 Hour Vital Signs Date Time Temp Pulse Resp B/P (MAP) Pulse Ox O2 Delivery O2 Flow Rate FiO2 01/29/18 13:12 98.0 01/29/18 12:42 98.0 01/29/18 12:00 91 01/29/18 12:00 98.0 95 20 120/65 96 Room Air 21 98.0 01/29/18 10:31 97.5 01/29/18 09:32 97.5 01/29/18 08:28 97.5 01/29/18 08:00 93 01/29/18 08:00 97.5 91 20 118/66 97 Room Air 21 97.5 01/29/18 07:38 Room Air 01/29/18 07:37 Room Air 01/29/18 04:00 96 01/29/18 04:00 97.5 91 22 107/66 97 Room Air 21 97.5 01/29/18 03:06 Room Air 01/29/18 03:06 Room Air 01/29/18 00:00 96.9 99 20 119/64 99 Room Air 21 96.9 01/29/18 00:00 98 01/28/18 23:11 91 20 97 Room Air 21 01/28/18 23:08 91 20 97 Room Air 21 01/28/18 20:00 98.6 98 18 120/65 97 Room Air 21 98.6 01/28/18 20:00 97 01/28/18 19:23 Room Air 21 01/28/18 19:20 96 20 97 Room Air 21 01/28/18 18:49 97.7 01/28/18 16:02 97.7 01/28/18 16:00 98.1 97 18 123/67 96 Room Air 21 98.1 01/28/18 16:00 78 Intake and Output 01/28/18 01/29/18 19:00 07:00 Intake Total 350 ml 600 ml Output Total 1200 ml 800 ml Balance -850 ml -200 ml Intake Oral 350 ml 600 ml Output Urine Total 1200 ml 800 ml General Appearance: WD/WN HEENT: normocephalic, atraumatic Respiratory/Chest: chest wall non-tender, normal breath sounds, no accessory muscle use Cardiovascular: normal peripheral pulses, normal rate Abdomen: normal bowel sounds, no organomegaly Laboratory Tests 01/28/18 18:25: Urine Opiates Screen Negative, Urine Barbiturates Screen Negative, Phencyclidine (PCP) Screen Negative, Urine Amphetamines Screen Negative, Urine Benzodiazepines Screen Negative, Urine Cocaine Screen Negative, Urine Marijuana (THC) Screen Negative 01/29/18 09:45: White Blood Count 9.4, Red Blood Count 5.01, Hemoglobin 14.4, Hematocrit 43.0, Mean Corpuscular Volume 86, Mean Corpuscular Hemoglobin 28.8, Mean Corpuscular Hemoglobin Concent 33.6, Red Cell Distribution Width 12.1, Platelet Count 201, Mean Platelet Volume 7.2, Neutrophils (%) (Auto) 54.9, Lymphocytes (%) (Auto) 34.7, Monocytes (%) (Auto) 7.0, Eosinophils (%) (Auto) 2.6, Basophils (%) (Auto ) 0.9, Sodium Level 138, Potassium Level 3.8, Chloride Level 105, Carbon Dioxide Level 27, Anion Gap 6, Blood Urea Nitrogen 14, Creatinine 0.9, Estimat Glomerular Filtration Rate > 60, Glucose Level 136H, Calcium Level 8.6 Current Medications Medications (Trade) Dose Ordered Sig/Sofia Route PRN Reason Start Time Stop Time Status Last Admin Dose Admin Acetaminophen (Tylenol) 650 mg Q4H PRN ORAL fever>100.5 01/27/18 07:30 02/26/18 07:29 Al Hydroxide/Mg Hydroxide (Mylanta II) 30 ml Q6H PRN ORAL dyspepsia 01/27/18 07:30 02/26/18 07:29 Aspirin (Ecotrin) 81 mg DAILY ORAL 01/27/18 13:00 02/26/18 12:59 01/29/18 09:31 Dextrose (Dextrose 50%) 25 ml PRN PRN IV BS 60 TO 69 MG/DL 01/27/18 07:45 02/26/18 07:44 Dextrose (Dextrose 50%) 50 ml PRN PRN IV BS LESS THAN 60 MG/DL 01/27/18 08:00 02/26/18 07:59 Divalproex Sodium (Depakote ER) 500 mg EVERY 12 HOURS ORAL 01/27/18 09:00 02/26/18 08:59 01/29/18 09:31 Heparin Sodium (Porcine) (Heparin 5000 units/ml) 5,000 units EVERY 12 HOURS SUBQ 01/27/18 09:00 02/26/18 08:59 01/29/18 09:36 Insulin Aspart (NovoLOG) BEFORE MEALS AND HS SUBQ 01/27/18 11:30 02/26/18 11:29 01/29/18 12:43 Lorazepam (Ativan 2mg/ml 1ml) 0.5 mg Q4H PRN IV For Anxiety 01/27/18 07:30 02/03/18 07:29 Morphine Sulfate (Morphine Sulfate) 1 mg Q4H PRN IVP Severe Pain (Pain Scale 7-10) 01/27/18 09:00 02/03/18 08:59 01/29/18 12:42 Nicotine (Nicoderm) 1 patch Q24H TDERMAL 01/27/18 13:30 02/26/18 13:29 01/29/18 12:41 Ondansetron HCl (Zofran) 4 mg Q6H PRN IVP Nausea & Vomiting 01/27/18 07:30 02/26/18 07:29 Oxycodone/ Acetaminophen (Percocet 5-325) 1 tab Q4H PRN ORAL moderate pain (4 to 6) 01/27/18 07:30 02/03/18 07:29 Polyethylene Glycol (Miralax) 17 gm HSPRN PRN ORAL Constipation 01/27/18 07:30 02/26/18 07:29 Pregabalin (Lyrica) 75 mg TID@1000,1500,2000 ORAL 01/27/18 10:00 02/26/18 09:59 01/29/18 09:32 Promethazine HCl/ Codeine (Phenergan with Codeine) 5 ml Q4H PRN ORAL For Cough 01/27/18 07:30 02/26/18 07:29 Quetiapine Fumarate (SEROquel) 300 mg BEDTIME ORAL 01/27/18 21:00 02/26/18 20:59 01/28/18 21:54 Theophylline (Bobby-Dur) 100 mg EVERY 12 HOURS ORAL 01/29/18 09:00 02/28/18 08:59 01/29/18 09:31 Ziprasidone (Geodon) 20 mg TWICE A DAY ORAL 01/27/18 09:00 02/26/18 08:59 01/29/18 09:31 Zolpidem Tartrate (Ambien) 5 mg HSPRN PRN ORAL Insomnia 01/27/18 07:30 02/03/18 07:29 Lashanda Pham MD Jan 29, 2018 15:48
[2018-01-29 16:00] VITALS: BP 127/74
[2018-01-29 20:00] VITALS: BP 117/79
[2018-01-29] MEDS ORDERED: Miralax 17gm pkt ORAL PRN (21:00)
[2018-01-29] MEDS ORDERED: oxyCODONE HCL/Acetaminophen 5/325mg ORAL PRN (22:00)
[2018-01-29] MEDS ORDERED: LORazepam Inj 2mg/ml 1ml IV PRN (22:00)
[2018-01-29] MEDS ORDERED: Mylanta II UD 30ml ORAL PRN (22:00)
[2018-01-29] MEDS ORDERED: Promethazine/Codeine 5ml UD ORAL PRN (22:00)
[2018-01-29] MEDS ORDERED: Zolpidem 5mg tab ORAL PRN (22:00)
[2018-01-30] VITALS: BP 119/72
[2018-01-30] MEDS: Morphine Sulfate 4mg/ml Inj IVP PRN ×6 (01:51→23:53)
--- NOTE | 2018-01-30 02:30 | Consultation ---
DATE OF CONSULTATION: 01/28/2018 NOTE: POOR AUDIO PSYCHOTHERAPY CONSULTATION PROGRESS NOTE CONSULTING PHYSICIAN: Juan Chinchilla M.D. TREATING ATTENDING PHYSICIAN: Aniceto Sepulveda D.O. HISTORY: The patient is a 37-year-old male patient who has a history of mental illness including schizoaffective disorder, bipolar type. The patient has been unstable in his mood, is anxious, irritable, and labile. For these reasons, he was referred for psychotherapeutic services hospital due to chest pain and dizziness. When this clinician assessed this patient, the patient states that he believes that he had a stroke a few months ago, has been feeling very helpless, hopeless, and devastated at this time. This has impacted his functioning, his speech, his relationships. For these reasons, he has been having a difficult time regulating affect. He denies any suicidal or homicidal thoughts of ideation. Denies any auditory or visual hallucinations. PAST MEDICAL HISTORY: History of diabetes, hypertension, and chronic pain. ALLERGIES: The patient has no known drug allergies. SUBSTANCE ABUSE HISTORY: The patient has a history of smoking cigarettes. Denies history of alcohol use. Denies history of illicit substance use. PSYCHIATRIC HISTORY: The patient has a history of schizoaffective disorder, bipolar type and has been treated with psychotropic medications in the past. SOCIAL HISTORY: The patient is a 37-year-old male patient. He was very the patient states that he has a fiancee and a son and is financially sustained through [employer]. MENTAL STATUS EXAMINATION: The patient is alert and oriented to person and place. Mood is irritable. Affect is labile. Thought process is disorganized. Thought content has been . He has poor attention and concentration. PLAN: This clinician assessed the patient and assessed the patient's mental status. Provided the patient reality orientation and supportive psychotherapy. Encouraging the patient to participate in treatment milieu. Providing him with coping skills. Continue behavioral management. This clinician has reviewed the patient's chart and discussed the treatment with treatment team. Juan Chinchilla PsyD. DR: RUI JOB#: [id number] CC:
[2018-01-30 04:00] VITALS: BP 108/64
[2018-01-30] MEDS: NovoLOG Insulin Flexpen SUBQ SCH ×4 (06:27→21:03)
[2018-01-30 07:13] LABS: BASOPHILS % (AUTO) 0.8 % (0.0-2.0); EOSINOPHILS % (AUTO) 2.7 % (0.0-3.0); HEMATOCRIT 39.6 % (42.0-52.0); HEMOGLOBIN 14.2 G/DL (14.2-18.0); LYMPHOCYTES % (AUTO) 31.6 % (20.0-45.0); MEAN CORPUSCULAR VOLUME 85 FL (80-99); MONOCYTES % (AUTO) 6.8 % (1.0-10.0); NEUTROPHILS % (AUTO) 58.2 % (45.0-75.0); PLATELET COUNT 197 K/UL (150-450); RED BLOOD COUNT 4.65 M/UL (4.70-6.10); RED CELL DISTRIBUTION WIDTH 12.1 % (11.6-14.8); WHITE BLOOD COUNT 9.4 K/UL (4.8-10.8)
[2018-01-30 07:26] LABS: ANION GAP 7 mmol/L (5-15); BLOOD UREA NITROGEN 18 mg/dL (7-18); CALCIUM 8.7 MG/DL (8.5-10.1); CARBON DIOXIDE 27 MMOL/L (21-32); CHLORIDE 103 MMOL/L (98-107); POTASSIUM 3.6 MMOL/L (3.5-5.1); SODIUM 137 MMOL/L (136-145)
[2018-01-30 08:57] VITALS: BP 114/69
[2018-01-30] MEDS: Theophylline ER 100mg ORAL SCH ×2 (09:03→21:01)
[2018-01-30] MEDS: Depakote ER 500mg tab ORAL SCH ×2 (09:03→21:01)
[2018-01-30] MEDS: Ziprasidone 20mg cap ORAL SCH ×2 (09:03→17:25)
[2018-01-30] MEDS: Aspirin EC 81mg tab ORAL SCH (09:03)
[2018-01-30] MEDS: Lyrica 75mg cap ORAL SCH ×3 (09:04→21:03)
[2018-01-30] MEDS: Heparin 5000 units/ml inj SUBQ SCH ×2 (09:10→21:00)
--- NOTE | 2018-01-30 09:49 | General Progress Note ---
Assessment/Plan Problem List: (1) Left arm numbness prob old residual to neck surgery (2) Chest wall pain ICD Codes: R07.89 - Other chest pain SNOMED: 108880865 (3) Diabetes ICD Codes: E11.9 - Type 2 diabetes mellitus without complications SNOMED: 27509206 (4) Chest pain ICD Codes: R07.9 - Chest pain SNOMED: 63098008 Status: stable, progressing, tolerating diet Assessment/Plan ot pt diet pain control cbc bmp am dc plan snf Subjective Constitutional: Reports: weakness Allergies: Coded Allergies: No Known Allergies (Unverified , 02/06/15) All Systems: reviewed and negative except above Subjective calm in bed sl cp Objective Last 24 Hour Vital Signs Date Time Temp Pulse Resp B/P (MAP) Pulse Ox O2 Delivery O2 Flow Rate FiO2 01/30/18 09:04 98.1 01/30/18 08:57 98.1 92 20 114/69 93 98.1 01/30/18 04:00 98.1 89 17 108/64 96 98.1 01/30/18 02:21 98.2 01/30/18 01:51 98.2 01/30/18 00:00 97.3 102 16 119/72 97.3 01/29/18 22:26 98.2 01/29/18 21:27 98.2 01/29/18 21:27 98.2 01/29/18 20:00 98.2 105 16 117/79 98.2 01/29/18 16:00 97.7 86 20 127/74 95 Room Air 21 97.7 01/29/18 13:12 98.0 01/29/18 12:42 98.0 01/29/18 12:00 91 01/29/18 12:00 98.0 95 20 120/65 96 Room Air 21 98.0 Intake and Output 01/29/18 01/30/18 19:00 07:00 Intake Total 1040 ml Output Total 1850 ml 900 ml Balance -810 ml -900 ml Intake Oral 1040 ml Output Urine Total 1850 ml 900 ml Laboratory Tests 01/30/18 05:30: White Blood Count 9.4, Red Blood Count 4.65L, Hemoglobin 14.2, Hematocrit 39.6L , Mean Corpuscular Volume 85, Mean Corpuscular Hemoglobin 30.6, Mean Corpuscular Hemoglobin Concent 35.9, Red Cell Distribution Width 12.1, Platelet Count 197, Mean Platelet Volume 7.8, Neutrophils (%) (Auto) 58.2, Lymphocytes (% ) (Auto) 31.6, Monocytes (%) (Auto) 6.8, Eosinophils (%) (Auto) 2.7, Basophils ( %) (Auto) 0.8, Sodium Level 137, Potassium Level 3.6, Chloride Level 103, Carbon Dioxide Level 27, Anion Gap 7, Blood Urea Nitrogen 18, Creatinine 1.0, Estimat Glomerular Filtration Rate > 60, Glucose Level 130H, Calcium Level 8.7 Height (Feet): 5 Height (Inches): 11.00 Weight (Pounds): 237 General Appearance: alert EENT: normal ENT inspection Neck: non-tender, normal alignment, supple Cardiovascular: normal peripheral pulses, normal rate, regular rhythm Respiratory/Chest: chest wall non-tender, lungs clear, normal breath sounds Abdomen: normal bowel sounds, non tender, soft Extremities: normal inspection Edema: no edema noted Arm (L), no edema noted Arm (R), no edema noted Leg (L), no edema noted Leg (R), no edema noted Pedal (L), no edema noted Pedal (R), no edema noted Generalized Neurologic: responsive, motor weakness Skin: normal pigmentation, warm/dry INDU KEEN Jan 30, 2018 09:49
[2018-01-30 12:05] VITALS: BP 116/65
[2018-01-30 15:48] VITALS: BP 102/74
--- NOTE | 2018-01-30 16:08 | Cardiac Electrophysiology PN ---
Assessment/Plan Assessment/Plan 1. Atypical Chest pain. Ruled out for IN. EKG does not show any acute ischemic changes. Echocardiogram EF 70%. Nuclear stress test showed no ischemia 2. Hypertension. Stable off on antihypertensives. 3. Diabetes. 4. History of prior CVA, on aspirin. 5. Asthma, theophylline. Awaiting place,ent Subjective Subjective Transferred to [facility]. No chest pain or SOB . Objective Last 24 Hour Vital Signs Date Time Temp Pulse Resp B/P (MAP) Pulse Ox O2 Delivery O2 Flow Rate FiO2 01/30/18 15:48 98.0 96 20 102/74 97 98.0 01/30/18 15:10 98.4 01/30/18 12:05 98.4 90 20 116/65 95 98.4 01/30/18 11:13 98.1 01/30/18 10:43 98.1 01/30/18 10:03 98.1 01/30/18 09:04 98.1 01/30/18 08:57 98.1 92 20 114/69 93 98.1 01/30/18 04:00 98.1 89 17 108/64 96 98.1 01/30/18 01:51 98.2 01/30/18 00:00 97.3 102 16 119/72 97.3 01/29/18 22:26 98.2 01/29/18 21:27 98.2 01/29/18 21:27 98.2 01/29/18 20:00 98.2 105 16 117/79 98.2 Intake and Output 01/29/18 01/30/18 19:00 07:00 Intake Total 1040 ml Output Total 1850 ml 900 ml Balance -810 ml -900 ml Intake Oral 1040 ml Output Urine Total 1850 ml 900 ml Laboratory Tests Test 01/30/18 05:30 White Blood Count 9.4 K/UL (4.8-10.8) Red Blood Count 4.65 M/UL (4.70-6.10) L Hemoglobin 14.2 G/DL (14.2-18.0) Hematocrit 39.6 % (42.0-52.0) L Mean Corpuscular Volume 85 FL (80-99) Mean Corpuscular Hemoglobin 30.6 PG (27.0-31.0) Mean Corpuscular Hemoglobin Concent 35.9 G/DL (32.0-36.0) Red Cell Distribution Width 12.1 % (11.6-14.8) Platelet Count 197 K/UL (150-450) Mean Platelet Volume 7.8 FL (6.5-10.1) Neutrophils (%) (Auto) 58.2 % (45.0-75.0) Lymphocytes (%) (Auto) 31.6 % (20.0-45.0) Monocytes (%) (Auto) 6.8 % (1.0-10.0) Eosinophils (%) (Auto) 2.7 % (0.0-3.0) Basophils (%) (Auto) 0.8 % (0.0-2.0) Sodium Level 137 MMOL/L (136-145) Potassium Level 3.6 MMOL/L (3.5-5.1) Chloride Level 103 MMOL/L (98-107) Carbon Dioxide Level 27 MMOL/L (21-32) Anion Gap 7 mmol/L (5-15) Blood Urea Nitrogen 18 mg/dL (7-18) Creatinine 1.0 MG/DL (0.55-1.30) Estimat Glomerular Filtration Rate > 60 mL/min (>60) Glucose Level 130 MG/DL (74-106) H Calcium Level 8.7 MG/DL (8.5-10.1) Microbiology Date/Time Source Procedure Growth Status 01/28/18 12:25 Nasal Nares MRSA Culture - Final Staphylococcus Aureus - Mrsa Complete 01/28/18 12:25 Rectum 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 Complete Objective HEAD AND NECK: No JVD. LUNGS: Clear. CARDIOVASCULAR: Regular S1 and S2 with no gallop or murmur. ABDOMEN: Soft. EXTREMITIES: No pitting edema. Hayes Kirk MD Jan 30, 2018 16:08
--- NOTE | 2018-01-30 17:52 | Pulmonology Progress Note ---
Assessment/Plan Problems: (1) Acute coronary syndrome (2) Opiate dependence (3) Generalized weakness (4) hemiparesis/hemiataxia , left. acute (5) COPD (chronic obstructive pulmonary disease) (6) Anxiety (7) Diabetes mellitus Assessment/Plan no new complains symptomatic treatment titrate fio2 to sat of 92% respiratory treatment sliding scale dc planning in process All medications and treatment were reviewed./ Subjective ROS Limited/Unobtainable: No Interval Events: doing better Allergies: Coded Allergies: No Known Allergies (Unverified , 02/06/15) Objective Last 24 Hour Vital Signs Date Time Temp Pulse Resp B/P (MAP) Pulse Ox O2 Delivery O2 Flow Rate FiO2 01/30/18 16:39 98.0 01/30/18 15:48 98.0 96 20 102/74 97 98.0 01/30/18 15:40 98.0 01/30/18 15:40 98.0 01/30/18 15:10 98.4 01/30/18 12:05 98.4 90 20 116/65 95 98.4 01/30/18 10:43 98.1 01/30/18 09:04 98.1 01/30/18 08:57 98.1 92 20 114/69 93 98.1 01/30/18 04:00 98.1 89 17 108/64 96 98.1 01/30/18 01:51 98.2 01/30/18 00:00 97.3 102 16 119/72 97.3 01/29/18 22:26 98.2 01/29/18 21:27 98.2 01/29/18 21:27 98.2 01/29/18 20:00 98.2 105 16 117/79 98.2 Intake and Output 01/29/18 01/30/18 19:00 07:00 Intake Total 1040 ml Output Total 1850 ml 900 ml Balance -810 ml -900 ml Intake Oral 1040 ml Output Urine Total 1850 ml 900 ml General Appearance: WD/WN HEENT: atraumatic, anicteric Respiratory/Chest: chest wall non-tender, lungs clear Cardiovascular: normal peripheral pulses, regular rhythm Abdomen: normal bowel sounds, soft, non tender Genitourinary: normal external genitalia Extremities: no clubbing Neurologic/Psychiatric: public relations II-XII grossly normal, no motor/sensory deficits Microbiology Date/Time Source Procedure Growth Status 01/28/18 12:25 Nasal Nares MRSA Culture - Final Staphylococcus Aureus - Mrsa Complete 01/28/18 12:25 Rectum 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 Complete Laboratory Tests 01/30/18 05:30: White Blood Count 9.4, Red Blood Count 4.65L, Hemoglobin 14.2, Hematocrit 39.6L , Mean Corpuscular Volume 85, Mean Corpuscular Hemoglobin 30.6, Mean Corpuscular Hemoglobin Concent 35.9, Red Cell Distribution Width 12.1, Platelet Count 197, Mean Platelet Volume 7.8, Neutrophils (%) (Auto) 58.2, Lymphocytes (% ) (Auto) 31.6, Monocytes (%) (Auto) 6.8, Eosinophils (%) (Auto) 2.7, Basophils ( %) (Auto) 0.8, Sodium Level 137, Potassium Level 3.6, Chloride Level 103, Carbon Dioxide Level 27, Anion Gap 7, Blood Urea Nitrogen 18, Creatinine 1.0, Estimat Glomerular Filtration Rate > 60, Glucose Level 130H, Calcium Level 8.7 Current Medications Medications (Trade) Dose Ordered Sig/Sofia Route PRN Reason Start Time Stop Time Status Last Admin Dose Admin Acetaminophen (Tylenol) 650 mg Q4H PRN ORAL fever>100.5 01/29/18 22:00 02/26/18 21:59 Al Hydroxide/Mg Hydroxide (Mylanta II) 30 ml Q6H PRN ORAL dyspepsia 01/29/18 22:00 02/28/18 21:59 Aspirin (Ecotrin) 81 mg DAILY ORAL 01/30/18 09:00 02/26/18 12:59 01/30/18 09:03 Dextrose (Dextrose 50%) 25 ml PRN PRN IV BS 60 TO 69 MG/DL 01/29/18 22:00 02/28/18 21:59 Dextrose (Dextrose 50%) 50 ml PRN PRN IV BS LESS THAN 60 MG/DL 01/29/18 22:00 02/28/18 21:59 Divalproex Sodium (Depakote ER) 500 mg EVERY 12 HOURS ORAL 01/30/18 09:00 03/01/18 08:59 01/30/18 09:03 Heparin Sodium (Porcine) (Heparin 5000 units/ml) 5,000 units EVERY 12 HOURS SUBQ 01/30/18 09:00 03/01/18 08:59 01/30/18 09:10 Insulin Aspart (NovoLOG) BEFORE MEALS AND HS SUBQ 01/30/18 06:30 02/26/18 11:29 01/30/18 16:30 Lorazepam (Ativan 2mg/ml 1ml) 0.5 mg Q4H PRN IV For Anxiety 01/29/18 22:00 02/03/18 21:59 Morphine Sulfate (Morphine Sulfate) 1 mg Q4H PRN IVP Severe Pain (Pain Scale 7-10) 01/29/18 22:00 02/05/18 21:59 01/30/18 15:10 Nicotine (Nicoderm) 1 patch Q24H TDERMAL 01/30/18 13:30 02/26/18 13:29 01/30/18 13:49 Ondansetron HCl (Zofran) 4 mg Q6H PRN IVP Nausea & Vomiting 01/29/18 22:00 02/28/18 21:59 01/30/18 06:39 Oxycodone/ Acetaminophen (Percocet 5-325) 1 tab Q4H PRN ORAL Moderate Pain (Pain Scale 4-6) 01/29/18 22:00 02/03/18 21:59 Polyethylene Glycol (Miralax) 17 gm HSPRN PRN ORAL Constipation 01/29/18 21:00 02/28/18 20:59 Pregabalin (Lyrica) 75 mg TID@1000,1500,2000 ORAL 01/30/18 10:00 02/26/18 09:59 01/30/18 15:40 Promethazine HCl/ Codeine (Phenergan with Codeine) 5 ml Q4H PRN ORAL For Cough 01/29/18 22:00 02/26/18 21:59 Quetiapine Fumarate (SEROquel) 300 mg BEDTIME ORAL 01/30/18 21:00 02/26/18 20:59 Theophylline (Bobby-Dur) 100 mg EVERY 12 HOURS ORAL 01/30/18 09:00 03/01/18 08:59 01/30/18 09:03 Ziprasidone (Geodon) 20 mg TWICE A DAY ORAL 01/30/18 09:00 02/26/18 08:59 01/30/18 17:25 Zolpidem Tartrate (Ambien) 5 mg HSPRN PRN ORAL Insomnia 01/29/18 22:00 02/05/18 21:59 Lashanda Pham MD Jan 30, 2018 17:52
--- NOTE | 2018-01-30 18:06 | Cardiology Report ---
APPROVED REPORT EXAM: Two-dimensional and M-mode echocardiogram with Doppler and color Doppler. INDICATION Chest Pain M-Mode DIMENSIONS IVSd1.2 (0.7-1.1cm)Left Atrium (MM)4.1 (1.6-4.0cm) LVDd4.4 (3.5-5.6cm)Aortic Root3.8 (2.0-3.7cm) PWd1.4 (0.7-1.1cm)Aortic Cusp Exc.2.5 (1.5-2.0cm) IVSs2.3 cm LVDs2.0 (2.5-4.0cm) Normal left ventricular chamber size, systolic function and wall motion. Left ventricular ejection fraction estimated to be 55%. No evidence of left ventricular hypertrophy. No evidence of pericardial effusion. All other cardiac chamber sizes are within normal limits. Focal aortic valve sclerosis with adequate cusp excursion. Mildly Thickened mitral valve leaflets with normal excursion. Mildly Mitral annulus and aortic root calcification. Normal pulmonic valve structure. Normal tricuspid valve structure. IVC at normal size with physiologic collapse. A color flow and spectral Doppler study was performed and revealed: No aortic regurgitation. Trace mitral regurgitation. Mitral diastolic velocities suggest reduced left ventricular relaxation c/w mild LV diastolic dysfunction (Grade I ) Tricuspid systolic velocities suggests peak right ventricular systolic pressure of 24 mmHg No Pulmonic regurgitation present.
[2018-01-30 19:52] VITALS: BP 132/77
--- NOTE | 2018-01-30 23:15 | Progress Note ---
DATE: 01/30/2018 SUBJECTIVE: The patient is a 37-year-old male patient with chest pain, weakness, confused, disorganized, and mood lability worsened by the stress of his medical illness. So, his attending has requested daily psychiatric consultation. MENTAL STATUS EXAMINATION: The patient is a 37-year-old male with psychomotor agitation. Mood is irritable and agitated. Affect is guarded and restricted. Thought process is disorganized and illogical. Endorses suicidal ideations . Insight and judgment is poor. DIAGNOSIS: Schizoaffective, bipolar type. PLAN: Plan is to treat with Geodon 20 mg twice a day, Depakote 500 mg twice a day, and Seroquel 300 mg nightly. Provided 18-20 minutes of supportive therapy. Chart was reviewed and discussed with staff. Seen and assessed at bedside. Charmaine Victor M.D. DR: LEROY JOB#: [id number] CC:
[2018-01-31 00:26] VITALS: BP 115/72
[2018-01-31] MEDS: Morphine Sulfate 4mg/ml Inj IVP PRN ×5 (04:31→20:34)
[2018-01-31 04:35] VITALS: BP 114/67
[2018-01-31] MEDS: NovoLOG Insulin Flexpen SUBQ SCH ×4 (06:13→21:28)
[2018-01-31 07:23] LABS: BASOPHILS % (AUTO) 0.7 % (0.0-2.0); EOSINOPHILS % (AUTO) 2.7 % (0.0-3.0); HEMATOCRIT 41.9 % (42.0-52.0); HEMOGLOBIN 14.1 G/DL (14.2-18.0); MEAN CORPUSCULAR VOLUME 86 FL (80-99); MONOCYTES % (AUTO) 7.5 % (1.0-10.0); NEUTROPHILS % (AUTO) 54.1 % (45.0-75.0); PLATELET COUNT 179 K/UL (150-450); RED BLOOD COUNT 4.85 M/UL (4.70-6.10); RED CELL DISTRIBUTION WIDTH 11.9 % (11.6-14.8); WHITE BLOOD COUNT 8.9 K/UL (4.8-10.8)
[2018-01-31 07:51] LABS: ANION GAP 8 mmol/L (5-15); BLOOD UREA NITROGEN 18 mg/dL (7-18); CALCIUM 9.4 MG/DL (8.5-10.1); CARBON DIOXIDE 27 MMOL/L (21-32); CHLORIDE 104 MMOL/L (98-107); CREATININE 0.9 MG/DL (0.55-1.30); POTASSIUM 3.7 MMOL/L (3.5-5.1); SODIUM 139 MMOL/L (136-145)
[2018-01-31] MEDS: Aspirin EC 81mg tab ORAL SCH (08:31)
[2018-01-31] MEDS: Theophylline ER 100mg ORAL SCH ×2 (08:31→20:34)
[2018-01-31] MEDS: Depakote ER 500mg tab ORAL SCH ×2 (08:31→20:35)
[2018-01-31] MEDS: Ziprasidone 20mg cap ORAL SCH ×2 (08:31→17:07)
[2018-01-31] MEDS: Heparin 5000 units/ml inj SUBQ SCH ×2 (08:33→20:24)
--- NOTE | 2018-01-31 08:38 | General Progress Note ---
Assessment/Plan Problem List: (1) Left arm numbness prob old residual to neck surgery (2) Chest wall pain ICD Codes: R07.89 - Other chest pain SNOMED: 321977947 (3) Diabetes ICD Codes: E11.9 - Type 2 diabetes mellitus without complications SNOMED: 68411382 (4) Chest pain ICD Codes: R07.9 - Chest pain SNOMED: 74266507 Status: stable, progressing, tolerating diet Assessment/Plan ot pt diet pain control cbc bmp am dc plan snf Subjective Constitutional: Reports: weakness Allergies: Coded Allergies: No Known Allergies (Unverified , 02/06/15) All Systems: reviewed and negative except above Subjective calm in bed sl cp Objective Last 24 Hour Vital Signs Date Time Temp Pulse Resp B/P (MAP) Pulse Ox O2 Delivery O2 Flow Rate FiO2 01/31/18 05:03 98.1 01/31/18 04:36 Room Air 01/31/18 04:35 98.1 75 17 114/67 95 98.1 01/31/18 04:31 98.6 01/31/18 00:26 98.6 99 19 115/72 93 98.6 01/31/18 00:00 Room Air 01/30/18 23:53 98.3 01/30/18 22:02 98.3 01/30/18 21:03 98.3 01/30/18 20:00 Room Air 01/30/18 19:52 98.3 88 18 132/77 96 98.3 01/30/18 19:34 98.0 01/30/18 15:48 98.0 96 20 102/74 97 98.0 01/30/18 15:40 98.0 01/30/18 15:10 98.4 01/30/18 12:05 98.4 90 20 116/65 95 98.4 01/30/18 10:43 98.1 01/30/18 09:04 98.1 01/30/18 08:57 98.1 92 20 114/69 93 98.1 Intake and Output 01/30/18 01/31/18 19:00 07:00 Intake Total 1410 ml 800 ml Balance 1410 ml 800 ml Intake Oral 1410 ml 800 ml # Voids 6 2 Laboratory Tests 01/31/18 04:50: White Blood Count 8.9, Red Blood Count 4.85, Hemoglobin 14.1L, Hematocrit 41.9L , Mean Corpuscular Volume 86, Mean Corpuscular Hemoglobin 29.1, Mean Corpuscular Hemoglobin Concent 33.7, Red Cell Distribution Width 11.9, Platelet Count 179, Mean Platelet Volume 7.5, Neutrophils (%) (Auto) 54.1, Lymphocytes (% ) (Auto) 35.0, Monocytes (%) (Auto) 7.5, Eosinophils (%) (Auto) 2.7, Basophils ( %) (Auto) 0.7, Sodium Level 139, Potassium Level 3.7, Chloride Level 104, Carbon Dioxide Level 27, Anion Gap 8, Blood Urea Nitrogen 18, Creatinine 0.9, Estimat Glomerular Filtration Rate > 60, Glucose Level 100, Calcium Level 9.4 Height (Feet): 5 Height (Inches): 11.00 Weight (Pounds): 237 General Appearance: alert EENT: normal ENT inspection Neck: normal alignment Cardiovascular: normal peripheral pulses, normal rate, regular rhythm Respiratory/Chest: chest wall non-tender, lungs clear, normal breath sounds Abdomen: normal bowel sounds, non tender, soft Extremities: normal inspection Edema: no edema noted Arm (L), no edema noted Arm (R), no edema noted Leg (L), no edema noted Leg (R), no edema noted Pedal (L), no edema noted Pedal (R), no edema noted Generalized Neurologic: responsive, motor weakness Skin: normal pigmentation, warm/dry INDU KEEN Jan 31, 2018 08:38
[2018-01-31] MEDS: Lyrica 75mg cap ORAL SCH ×4 (10:08→20:23)
[2018-01-31] MEDS: Metoprolol 25mg tab ORAL SCH ×2 (10:08→20:34)
[2018-01-31] MEDS: Albuterol/Ipratropium 3ml neb HHN PRN ×3 (10:23→22:47)
[2018-01-31 20:00] VITALS: BP 115/75
[2018-02-01] VITALS: BP 129/58
[2018-02-01] MEDS: Morphine Sulfate 4mg/ml Inj IVP PRN ×6 (00:34→21:48)
[2018-02-01 04:46] VITALS: BP 111/64
[2018-02-01] MEDS: NovoLOG Insulin Flexpen SUBQ SCH ×4 (06:18→20:28)
[2018-02-01 07:11] LABS: BASOPHILS % (AUTO) 0.8 % (0.0-2.0); EOSINOPHILS % (AUTO) 2.4 % (0.0-3.0); HEMOGLOBIN 13.4 G/DL (14.2-18.0); MEAN CORPUSCULAR VOLUME 86 FL (80-99); MONOCYTES % (AUTO) 8.2 % (1.0-10.0); NEUTROPHILS % (AUTO) 56.6 % (45.0-75.0); PLATELET COUNT 188 K/UL (150-450); RED BLOOD COUNT 4.53 M/UL (4.70-6.10); WHITE BLOOD COUNT 9.3 K/UL (4.8-10.8)
[2018-02-01 07:37] LABS: ANION GAP 10 mmol/L (5-15); BLOOD UREA NITROGEN 12 mg/dL (7-18); CALCIUM 8.8 MG/DL (8.5-10.1); CARBON DIOXIDE 26 MMOL/L (21-32); CHLORIDE 103 MMOL/L (98-107); CREATININE 0.8 MG/DL (0.55-1.30); POTASSIUM 3.6 MMOL/L (3.5-5.1); SODIUM 138 MMOL/L (136-145)
[2018-02-01 08:00] VITALS: BP 126/67
--- NOTE | 2018-02-01 08:00 | Consultation ---
DATE OF CONSULTATION: 01/29/2018 CONSULTING PHYSICIAN: Charmaine Victor M.D. ATTENDING PHYSICIAN: Aniceto Sepulveda D.O. REASON FOR ADMISSION: This is a 37-year-old patient with chest pain. This patient has altered mental status and confusion. Cognition has declined below baseline. That is why, his attending has requested daily psychiatric consultation. Diagnosis is . MENTAL STATUS EXAMINATION: This is a 37-year-old male with psychomotor agitation. Mood is irritable and agitated. Affect guarded and restricted. Intellect poor. Mood depressed and anxious. Motor activity, psychomotor agitation. Attention span is poor. Orientation x2. Speech is pressured. Thought process is disorganized and illogical. Thought content is auditory hallucinations and paranoid delusions. Insight and judgment is poor. DIAGNOSIS: Schizoaffective, bipolar type. PLAN: Plan is to treat him with Geodon 20 mg twice a day, Depakote 500 twice a day, Seroquel 300 nightly. Provided 18-20 minutes of supportive therapy. Encouraged him to interact appropriately with staff. Chart reviewed. Discussed with staff. Charmaine Victor M.D. DR: Michelle JOB#: [id number] CC:
--- NOTE | 2018-02-01 08:01 | Progress Note ---
DATE: 01/31/2018 NOTE: "POOR AUDIO QUALITY" SUBJECTIVE: The patient is a 37-year-old male patient admitted to the hospital because of chest pain, mood lability and agitation worsened by the stress of his medical illness, so his attending physician has requested daily psychiatric consultation for the patient. As far as mood labile, irritable, and agitated. MENTAL STATUS EXAMINATION: This is a 37-year-old male with psychomotor agitation. Mood is irritable and agitated. Affect guarded and restricted. Thought process is disorganized and illogical. Thought content, auditory hallucinations and paranoid delusions. Insight and judgment is poor . DIAGNOSIS: Schizoaffective, bipolar type. PLAN: Continue him on Geodon 20 twice a day and Depakote to stabilize his mood. Provided 18-20 minutes of supportive therapy and encouraged him to interact appropriately with staff and other patients. Chart was reviewed and discussed with staff. Seen and assessed in his room. Charmaine Victor M.D. DR: Lenny JOB#: [id number] CC:
[2018-02-01] MEDS: Heparin 5000 units/ml inj SUBQ SCH ×2 (09:00→20:26)
[2018-02-01] MEDS: Ziprasidone 20mg cap ORAL SCH ×2 (09:36→17:49)
[2018-02-01] MEDS: Lyrica 75mg cap ORAL SCH ×3 (09:36→20:26)
[2018-02-01] MEDS: Theophylline ER 100mg ORAL SCH ×2 (09:37→21:47)
[2018-02-01] MEDS: Metoprolol 25mg tab ORAL SCH (09:37)
[2018-02-01] MEDS: Depakote ER 500mg tab ORAL SCH ×2 (09:37→21:47)
[2018-02-01] MEDS: Aspirin EC 81mg tab ORAL SCH (09:37)
--- NOTE | 2018-02-01 11:02 | Cardiac Electrophysiology PN ---
Assessment/Plan Assessment/Plan 1. Atypical Chest pain. Ruled out for MD. EKG no acute ischemic changes. Echocardiogram EF 70%. Nuclear stress test showed no ischemia 2. Hypertension. Change Lopressor to Lisinopril 10 daily in view of Asthma and DM 3. Diabetes. 4. History of prior CVA, on aspirin. 5. Asthma, theophylline. Awaiting placement JOSEFINA RN Subjective Subjective On NMB. No chest pain or SOB .Awaiting placement Objective Last 24 Hour Vital Signs Date Time Temp Pulse Resp B/P (MAP) Pulse Ox O2 Delivery O2 Flow Rate FiO2 02/01/18 10:40 97 20 Room Air 21 02/01/18 09:37 98 126/67 02/01/18 08:00 98.4 98 21 126/67 99 98.4 02/01/18 05:12 98.1 02/01/18 04:46 98.1 94 18 111/64 94 Room Air 98.1 02/01/18 04:42 97.5 02/01/18 01:13 Room Air 02/01/18 00:34 97.5 02/01/18 00:00 97.5 104 18 129/58 92 Room Air 97.5 01/31/18 23:03 101 20 97 Room Air 21 01/31/18 22:46 105 20 97 Room Air 21 01/31/18 22:46 21 01/31/18 21:33 105 20 Room Air 21 01/31/18 21:22 98.1 01/31/18 20:34 105 115/75 01/31/18 20:34 98.1 01/31/18 20:23 98.1 01/31/18 20:00 Room Air 01/31/18 20:00 98.2 105 20 115/75 97 Room Air 98.2 01/31/18 16:35 85 14 Room Air 21 01/31/18 16:32 98.1 01/31/18 16:26 84 14 Room Air 21 01/31/18 15:17 98.1 01/31/18 12:32 98.1 Intake and Output 01/31/18 02/01/18 19:00 07:00 Intake Total 2000 ml 680 ml Output Total 800 ml Balance 1200 ml 680 ml Intake Oral 2000 ml 680 ml Output Urine Total 800 ml # Voids 3 3 Laboratory Tests Test 02/01/18 05:45 White Blood Count 9.3 K/UL (4.8-10.8) Red Blood Count 4.53 M/UL (4.70-6.10) L Hemoglobin 13.4 G/DL (14.2-18.0) L Hematocrit 39.0 % (42.0-52.0) L Mean Corpuscular Volume 86 FL (80-99) Mean Corpuscular Hemoglobin 29.5 PG (27.0-31.0) Mean Corpuscular Hemoglobin Concent 34.2 G/DL (32.0-36.0) Red Cell Distribution Width 12.0 % (11.6-14.8) Platelet Count 188 K/UL (150-450) Mean Platelet Volume 8.2 FL (6.5-10.1) Neutrophils (%) (Auto) 56.6 % (45.0-75.0) Lymphocytes (%) (Auto) 32.0 % (20.0-45.0) Monocytes (%) (Auto) 8.2 % (1.0-10.0) Eosinophils (%) (Auto) 2.4 % (0.0-3.0) Basophils (%) (Auto) 0.8 % (0.0-2.0) Sodium Level 138 MMOL/L (136-145) Potassium Level 3.6 MMOL/L (3.5-5.1) Chloride Level 103 MMOL/L (98-107) Carbon Dioxide Level 26 MMOL/L (21-32) Anion Gap 10 mmol/L (5-15) Blood Urea Nitrogen 12 mg/dL (7-18) Creatinine 0.8 MG/DL (0.55-1.30) Estimat Glomerular Filtration Rate > 60 mL/min (>60) Glucose Level 168 MG/DL (74-106) H Calcium Level 8.8 MG/DL (8.5-10.1) Objective HEAD AND NECK: No JVD. LUNGS: Clear. CARDIOVASCULAR: Regular S1 and S2 with no gallop or murmur. ABDOMEN: Soft. EXTREMITIES: No pitting edema. Hayes Kirk MD Feb 01, 2018 11:02
[2018-02-01 12:00] VITALS: BP 105/62
--- NOTE | 2018-02-01 14:00 | General Progress Note ---
Assessment/Plan Problem List: (1) Left arm numbness prob old residual to neck surgery (2) Chest wall pain ICD Codes: R07.89 - Other chest pain SNOMED: 418907542 (3) Diabetes ICD Codes: E11.9 - Type 2 diabetes mellitus without complications SNOMED: 39458874 (4) Chest pain ICD Codes: R07.9 - Chest pain SNOMED: 46872294 Status: stable, progressing, tolerating diet Assessment/Plan ot pt diet pain control cbc bmp am dc plan snf Subjective Constitutional: Reports: weakness Allergies: Coded Allergies: No Known Allergies (Unverified , 02/06/15) All Systems: reviewed and negative except above Subjective calm in bed sl cp Objective Last 24 Hour Vital Signs Date Time Temp Pulse Resp B/P (MAP) Pulse Ox O2 Delivery O2 Flow Rate FiO2 02/01/18 12:00 98.6 63 19 105/62 95 98.6 02/01/18 10:40 97 20 Room Air 21 02/01/18 09:37 98 126/67 02/01/18 08:00 98.4 98 21 126/67 99 98.4 02/01/18 05:12 98.1 02/01/18 04:46 98.1 94 18 111/64 94 Room Air 98.1 02/01/18 04:42 97.5 02/01/18 01:13 Room Air 02/01/18 00:34 97.5 02/01/18 00:00 97.5 104 18 129/58 92 Room Air 97.5 01/31/18 23:03 101 20 97 Room Air 21 01/31/18 22:46 105 20 97 Room Air 21 01/31/18 22:46 21 01/31/18 21:33 105 20 Room Air 21 01/31/18 21:22 98.1 01/31/18 20:34 105 115/75 01/31/18 20:34 98.1 01/31/18 20:23 98.1 01/31/18 20:00 Room Air 01/31/18 20:00 98.2 105 20 115/75 97 Room Air 98.2 01/31/18 16:35 85 14 Room Air 21 01/31/18 16:32 98.1 01/31/18 16:26 84 14 Room Air 21 01/31/18 15:17 98.1 Intake and Output 01/31/18 02/01/18 19:00 07:00 Intake Total 2000 ml 680 ml Output Total 800 ml Balance 1200 ml 680 ml Intake Oral 2000 ml 680 ml Output Urine Total 800 ml # Voids 3 3 Laboratory Tests 02/01/18 05:45: White Blood Count 9.3, Red Blood Count 4.53L, Hemoglobin 13.4L, Hematocrit 39.0L , Mean Corpuscular Volume 86, Mean Corpuscular Hemoglobin 29.5, Mean Corpuscular Hemoglobin Concent 34.2, Red Cell Distribution Width 12.0, Platelet Count 188, Mean Platelet Volume 8.2, Neutrophils (%) (Auto) 56.6, Lymphocytes (% ) (Auto) 32.0, Monocytes (%) (Auto) 8.2, Eosinophils (%) (Auto) 2.4, Basophils ( %) (Auto) 0.8, Sodium Level 138, Potassium Level 3.6, Chloride Level 103, Carbon Dioxide Level 26, Anion Gap 10, Blood Urea Nitrogen 12, Creatinine 0.8, Estimat Glomerular Filtration Rate > 60, Glucose Level 168H, Calcium Level 8.8 Height (Feet): 5 Height (Inches): 11.00 Weight (Pounds): 237 General Appearance: alert EENT: normal ENT inspection Neck: normal alignment Cardiovascular: normal peripheral pulses, normal rate, regular rhythm Respiratory/Chest: chest wall non-tender, lungs clear, normal breath sounds Abdomen: normal bowel sounds, non tender, soft Extremities: normal inspection Edema: no edema noted Arm (L), no edema noted Arm (R), no edema noted Leg (L), no edema noted Leg (R), no edema noted Pedal (L), no edema noted Pedal (R), no edema noted Generalized Neurologic: responsive, motor weakness Skin: normal pigmentation, warm/dry INDU KEEN Feb 01, 2018 14:00
[2018-02-01 15:48] VITALS: BP 112/65
--- NOTE | 2018-02-01 19:34 | Pulmonology Progress Note ---
Assessment/Plan Problems: (1) Acute coronary syndrome (2) Opiate dependence (3) Generalized weakness (4) hemiparesis/hemiataxia , left. acute (5) COPD (chronic obstructive pulmonary disease) (6) Anxiety (7) Diabetes mellitus Assessment/Plan no new complains symptomatic treatment titrate fio2 to sat of 92% respiratory treatment sliding scale dc planning in process All medications and treatment were reviewed./ Subjective Interval Events: late note for 01/31/15 Constitutional: Reports: no symptoms HEENT: Repors: no symptoms Allergies: Coded Allergies: No Known Allergies (Unverified , 02/06/15) Objective Last 24 Hour Vital Signs Date Time Temp Pulse Resp B/P (MAP) Pulse Ox O2 Delivery O2 Flow Rate FiO2 02/01/18 19:28 95 20 Room Air 21 02/01/18 15:48 98.1 109 19 112/65 97 98.1 02/01/18 12:00 98.6 63 19 105/62 95 98.6 02/01/18 10:40 97 20 Room Air 21 02/01/18 09:37 98 126/67 02/01/18 08:00 98.4 98 21 126/67 99 98.4 02/01/18 05:12 98.1 02/01/18 04:46 98.1 94 18 111/64 94 Room Air 98.1 02/01/18 04:42 97.5 02/01/18 01:13 Room Air 02/01/18 00:34 97.5 02/01/18 00:00 97.5 104 18 129/58 92 Room Air 97.5 01/31/18 23:03 101 20 97 Room Air 21 01/31/18 22:46 105 20 97 Room Air 21 01/31/18 22:46 21 01/31/18 21:33 105 20 Room Air 21 01/31/18 21:22 98.1 01/31/18 20:34 105 115/75 01/31/18 20:34 98.1 01/31/18 20:23 98.1 01/31/18 20:00 Room Air 01/31/18 20:00 98.2 105 20 115/75 97 Room Air 98.2 Intake and Output 01/31/18 02/01/18 19:00 07:00 Intake Total 2000 ml 680 ml Output Total 800 ml Balance 1200 ml 680 ml Intake Oral 2000 ml 680 ml Output Urine Total 800 ml # Voids 3 3 General Appearance: WD/WN HEENT: normocephalic, atraumatic Respiratory/Chest: chest wall non-tender, lungs clear, no respiratory distress Cardiovascular: normal peripheral pulses, normal rate Abdomen: normal bowel sounds, soft, non tender Genitourinary: normal external genitalia Skin: no rash Neurologic/Psychiatric: no motor/sensory deficits, oriented x 3, normal mood/ affect Laboratory Tests 02/01/18 05:45: White Blood Count 9.3, Red Blood Count 4.53L, Hemoglobin 13.4L, Hematocrit 39.0L , Mean Corpuscular Volume 86, Mean Corpuscular Hemoglobin 29.5, Mean Corpuscular Hemoglobin Concent 34.2, Red Cell Distribution Width 12.0, Platelet Count 188, Mean Platelet Volume 8.2, Neutrophils (%) (Auto) 56.6, Lymphocytes (% ) (Auto) 32.0, Monocytes (%) (Auto) 8.2, Eosinophils (%) (Auto) 2.4, Basophils ( %) (Auto) 0.8, Sodium Level 138, Potassium Level 3.6, Chloride Level 103, Carbon Dioxide Level 26, Anion Gap 10, Blood Urea Nitrogen 12, Creatinine 0.8, Estimat Glomerular Filtration Rate > 60, Glucose Level 168H, Calcium Level 8.8 Current Medications Medications (Trade) Dose Ordered Sig/Sofia Route PRN Reason Start Time Stop Time Status Last Admin Dose Admin Acetaminophen (Tylenol) 650 mg Q4H PRN ORAL fever>100.5 01/29/18 22:00 02/26/18 21:59 Al Hydroxide/Mg Hydroxide (Mylanta II) 30 ml Q6H PRN ORAL dyspepsia 01/29/18 22:00 02/28/18 21:59 Albuterol/ Ipratropium (Albuterol/ Ipratropium) 3 ml Q4H PRN HHN Shortness of Breath 01/31/18 10:15 02/05/18 10:14 01/31/18 22:47 Aspirin (Ecotrin) 81 mg DAILY ORAL 01/30/18 09:00 02/26/18 12:59 02/01/18 09:37 Dextrose (Dextrose 50%) 25 ml PRN PRN IV BS 60 TO 69 MG/DL 01/29/18 22:00 02/28/18 21:59 Dextrose (Dextrose 50%) 50 ml PRN PRN IV BS LESS THAN 60 MG/DL 01/29/18 22:00 02/28/18 21:59 Divalproex Sodium (Depakote ER) 500 mg EVERY 12 HOURS ORAL 01/30/18 09:00 03/01/18 08:59 02/01/18 09:37 Heparin Sodium (Porcine) (Heparin 5000 units/ml) 5,000 units EVERY 12 HOURS SUBQ 01/30/18 09:00 03/01/18 08:59 01/31/18 08:33 Insulin Aspart (NovoLOG) BEFORE MEALS AND HS SUBQ 01/30/18 06:30 02/26/18 11:29 02/01/18 16:54 Lisinopril (Zestril) 10 mg DAILY ORAL 02/02/18 09:00 03/04/18 08:59 Lorazepam (Ativan 2mg/ml 1ml) 0.5 mg Q4H PRN IV For Anxiety 01/29/18 22:00 02/03/18 21:59 02/01/18 12:45 Morphine Sulfate (Morphine Sulfate) 1 mg Q4H PRN IVP Severe Pain (Pain Scale 7-10) 01/29/18 22:00 02/05/18 21:59 02/01/18 17:50 Nicotine (Nicoderm) 1 patch Q24H TDERMAL 01/31/18 10:30 03/02/18 10:29 02/01/18 09:50 Ondansetron HCl (Zofran) 4 mg Q6H PRN IVP Nausea & Vomiting 01/29/18 22:00 02/28/18 21:59 01/30/18 06:39 Oxycodone/ Acetaminophen (Percocet 5-325) 1 tab Q4H PRN ORAL Moderate Pain (Pain Scale 4-6) 01/29/18 22:00 02/03/18 21:59 Polyethylene Glycol (Miralax) 17 gm HSPRN PRN ORAL Constipation 01/29/18 21:00 02/28/18 20:59 Pregabalin (Lyrica) 75 mg TID@1000,1500,2000 ORAL 01/30/18 10:00 02/26/18 09:59 02/01/18 15:55 Promethazine HCl/ Codeine (Phenergan with Codeine) 5 ml Q4H PRN ORAL For Cough 01/29/18 22:00 02/26/18 21:59 Quetiapine Fumarate (SEROquel) 300 mg BEDTIME ORAL 01/30/18 21:00 02/26/18 20:59 01/31/18 20:35 Theophylline (Bobby-Dur) 100 mg EVERY 12 HOURS ORAL 01/30/18 09:00 03/01/18 08:59 02/01/18 09:37 Ziprasidone (Geodon) 20 mg TWICE A DAY ORAL 01/30/18 09:00 02/26/18 08:59 02/01/18 17:49 Zolpidem Tartrate (Ambien) 5 mg HSPRN PRN ORAL Insomnia 01/29/18 22:00 02/05/18 21:59 Lashanda Pham MD Feb 01, 2018 19:34
--- NOTE | 2018-02-01 19:37 | Pulmonology Progress Note ---
Assessment/Plan Problems: (1) Acute coronary syndrome (2) Opiate dependence (3) Generalized weakness (4) hemiparesis/hemiataxia , left. acute (5) COPD (chronic obstructive pulmonary disease) (6) Anxiety (7) Diabetes mellitus Assessment/Plan no new complains symptomatic treatment titrate fio2 to sat of 92% respiratory treatment sliding scale dc planning in process All medications and treatment were reviewed./ Subjective ROS Limited/Unobtainable: No HEENT: Repors: no symptoms Allergies: Coded Allergies: No Known Allergies (Unverified , 02/06/15) Objective Last 24 Hour Vital Signs Date Time Temp Pulse Resp B/P (MAP) Pulse Ox O2 Delivery O2 Flow Rate FiO2 02/01/18 19:28 95 20 Room Air 21 02/01/18 15:48 98.1 109 19 112/65 97 98.1 02/01/18 12:00 98.6 63 19 105/62 95 98.6 02/01/18 10:40 97 20 Room Air 21 02/01/18 09:37 98 126/67 02/01/18 08:00 98.4 98 21 126/67 99 98.4 02/01/18 05:12 98.1 02/01/18 04:46 98.1 94 18 111/64 94 Room Air 98.1 02/01/18 04:42 97.5 02/01/18 01:13 Room Air 02/01/18 00:34 97.5 02/01/18 00:00 97.5 104 18 129/58 92 Room Air 97.5 01/31/18 23:03 101 20 97 Room Air 21 01/31/18 22:46 105 20 97 Room Air 21 01/31/18 22:46 21 01/31/18 21:33 105 20 Room Air 21 01/31/18 21:22 98.1 01/31/18 20:34 105 115/75 01/31/18 20:34 98.1 01/31/18 20:23 98.1 01/31/18 20:00 Room Air 01/31/18 20:00 98.2 105 20 115/75 97 Room Air 98.2 Intake and Output 01/31/18 02/01/18 19:00 07:00 Intake Total 2000 ml 680 ml Output Total 800 ml Balance 1200 ml 680 ml Intake Oral 2000 ml 680 ml Output Urine Total 800 ml # Voids 3 3 General Appearance: WD/WN HEENT: normocephalic, atraumatic Respiratory/Chest: chest wall non-tender, lungs clear, chest wall tender Cardiovascular: regular rhythm Abdomen: non distended Extremities: no cyanosis Neurologic/Psychiatric: no motor/sensory deficits Laboratory Tests 02/01/18 05:45: White Blood Count 9.3, Red Blood Count 4.53L, Hemoglobin 13.4L, Hematocrit 39.0L , Mean Corpuscular Volume 86, Mean Corpuscular Hemoglobin 29.5, Mean Corpuscular Hemoglobin Concent 34.2, Red Cell Distribution Width 12.0, Platelet Count 188, Mean Platelet Volume 8.2, Neutrophils (%) (Auto) 56.6, Lymphocytes (% ) (Auto) 32.0, Monocytes (%) (Auto) 8.2, Eosinophils (%) (Auto) 2.4, Basophils ( %) (Auto) 0.8, Sodium Level 138, Potassium Level 3.6, Chloride Level 103, Carbon Dioxide Level 26, Anion Gap 10, Blood Urea Nitrogen 12, Creatinine 0.8, Estimat Glomerular Filtration Rate > 60, Glucose Level 168H, Calcium Level 8.8 Current Medications Medications (Trade) Dose Ordered Sig/Sofia Route PRN Reason Start Time Stop Time Status Last Admin Dose Admin Acetaminophen (Tylenol) 650 mg Q4H PRN ORAL fever>100.5 01/29/18 22:00 02/26/18 21:59 Al Hydroxide/Mg Hydroxide (Mylanta II) 30 ml Q6H PRN ORAL dyspepsia 01/29/18 22:00 02/28/18 21:59 Albuterol/ Ipratropium (Albuterol/ Ipratropium) 3 ml Q4H PRN HHN Shortness of Breath 01/31/18 10:15 02/05/18 10:14 01/31/18 22:47 Aspirin (Ecotrin) 81 mg DAILY ORAL 01/30/18 09:00 02/26/18 12:59 02/01/18 09:37 Dextrose (Dextrose 50%) 25 ml PRN PRN IV BS 60 TO 69 MG/DL 01/29/18 22:00 02/28/18 21:59 Dextrose (Dextrose 50%) 50 ml PRN PRN IV BS LESS THAN 60 MG/DL 01/29/18 22:00 02/28/18 21:59 Divalproex Sodium (Depakote ER) 500 mg EVERY 12 HOURS ORAL 01/30/18 09:00 03/01/18 08:59 02/01/18 09:37 Heparin Sodium (Porcine) (Heparin 5000 units/ml) 5,000 units EVERY 12 HOURS SUBQ 01/30/18 09:00 03/01/18 08:59 01/31/18 08:33 Insulin Aspart (NovoLOG) BEFORE MEALS AND HS SUBQ 01/30/18 06:30 02/26/18 11:29 02/01/18 16:54 Lisinopril (Zestril) 10 mg DAILY ORAL 02/02/18 09:00 03/04/18 08:59 Lorazepam (Ativan 2mg/ml 1ml) 0.5 mg Q4H PRN IV For Anxiety 01/29/18 22:00 02/03/18 21:59 02/01/18 12:45 Morphine Sulfate (Morphine Sulfate) 1 mg Q4H PRN IVP Severe Pain (Pain Scale 7-10) 01/29/18 22:00 02/05/18 21:59 02/01/18 17:50 Nicotine (Nicoderm) 1 patch Q24H TDERMAL 01/31/18 10:30 03/02/18 10:29 02/01/18 09:50 Ondansetron HCl (Zofran) 4 mg Q6H PRN IVP Nausea & Vomiting 01/29/18 22:00 02/28/18 21:59 01/30/18 06:39 Oxycodone/ Acetaminophen (Percocet 5-325) 1 tab Q4H PRN ORAL Moderate Pain (Pain Scale 4-6) 01/29/18 22:00 02/03/18 21:59 Polyethylene Glycol (Miralax) 17 gm HSPRN PRN ORAL Constipation 01/29/18 21:00 02/28/18 20:59 Pregabalin (Lyrica) 75 mg TID@1000,1500,2000 ORAL 01/30/18 10:00 02/26/18 09:59 02/01/18 15:55 Promethazine HCl/ Codeine (Phenergan with Codeine) 5 ml Q4H PRN ORAL For Cough 01/29/18 22:00 02/26/18 21:59 Quetiapine Fumarate (SEROquel) 300 mg BEDTIME ORAL 01/30/18 21:00 02/26/18 20:59 01/31/18 20:35 Theophylline (Bobby-Dur) 100 mg EVERY 12 HOURS ORAL 01/30/18 09:00 03/01/18 08:59 02/01/18 09:37 Ziprasidone (Geodon) 20 mg TWICE A DAY ORAL 01/30/18 09:00 02/26/18 08:59 02/01/18 17:49 Zolpidem Tartrate (Ambien) 5 mg HSPRN PRN ORAL Insomnia 01/29/18 22:00 02/05/18 21:59 Lashanda Pham MD Feb 01, 2018 19:36
[2018-02-01 20:00] VITALS: BP 114/68
[2018-02-02] VITALS (7 sets, daily range): BP systolic 108–123; BP diastolic 53–96
--- NOTE | 2018-02-02 02:30 | Progress Note ---
DATE: 02/01/2018 NOTE: POOR AUDIO SUBJECTIVE: The patient is a 37-year-old male patient with schizoaffective, bipolar type, , disorganized thought process, worsened by the stress of his medical illness. He is very depressed, confused. Mood labile. Insight and judgment is poor. daily psychiatric consultation. agitation and irritability. . MENTAL STATUS EXAMINATION: This is a 37-year-old male. Appearance, disheveled, agitated, . Affect guarded and restricted. Intellect poor. . Motor activity, psychomotor agitation. . Insight and judgement is poor. . DIAGNOSIS: Schizoaffective, bipolar type. PLAN: This patient is to continue treatment with Geodon and Depakote to stabilize his mood. Provided 18-20 minutes of supportive therapy. Chart was reviewed and discussed with staff. . Charmaine Victor M.D. DR: REBECCA JOB#: [id number] CC:
[2018-02-02] MEDS: Morphine Sulfate 4mg/ml Inj IVP PRN ×5 (05:06→21:27)
[2018-02-02] MEDS: NovoLOG Insulin Flexpen SUBQ SCH ×4 (05:56→21:19)
[2018-02-02 07:05] LABS: BASOPHILS % (AUTO) 0.8 % (0.0-2.0); EOSINOPHILS % (AUTO) 3.1 % (0.0-3.0); HEMATOCRIT 42.5 % (42.0-52.0); LYMPHOCYTES % (AUTO) 34.8 % (20.0-45.0); MEAN CORPUSCULAR VOLUME 87 FL (80-99); MONOCYTES % (AUTO) 7.3 % (1.0-10.0); NEUTROPHILS % (AUTO) 54.1 % (45.0-75.0); PLATELET COUNT 214 K/UL (150-450); RED BLOOD COUNT 4.91 M/UL (4.70-6.10); RED CELL DISTRIBUTION WIDTH 12.1 % (11.6-14.8); WHITE BLOOD COUNT 9.5 K/UL (4.8-10.8)
[2018-02-02 07:08] LABS: ANION GAP 12 mmol/L (5-15); BLOOD UREA NITROGEN 15 mg/dL (7-18); CALCIUM 9.4 MG/DL (8.5-10.1); CARBON DIOXIDE 23 MMOL/L (21-32); CHLORIDE 103 MMOL/L (98-107); CREATININE 0.9 MG/DL (0.55-1.30); POTASSIUM 3.8 MMOL/L (3.5-5.1); SODIUM 138 MMOL/L (136-145)
--- NOTE | 2018-02-02 08:20 | Physician Query ---
--------- THIS DOCUMENT IS A PERMANENT PART OF THE MEDICAL RECORD --------- PLEASE COMPLETE THE DOCUMENT BEFORE SIGNING Dear INDU Carver Date 02/02/18 Track Patrol/CDS' Name Eldon Mcgowan [employer] Patrol/CDS Phone#: [phone] Exercise your independent professional judgment when responding to query. Questions asked do not imply particular answer is desired or expected. We greatly appreciate your clarification on this issue. Clinical Documentation States: Cardiology Progress Note: Dr. Kirk (02/02/18) "Atypical Chest pain. Ruled out for [place]. EKG no acute ischemic changes. Echocardiogram EF 70%. Nuclear stress test showed no ischemia." Progress Note: Dr. Keen (02/01/18) " Chest wall pain" Clinical Findings Show: EKG = no acute ischemic changes Troponin = 0.000 O2% = 94-99 EF = 70% Please document the suspected etiology of Chest Pain: a.Type: []Cardiac []Non-cardiac []Unspecified b.Etiology - cardiac [] Aortic dissection []Mitral valve prolapsed [] Acute myocardial infarction []Spasm of coronary arteries [] Coronary Artery Disease []Pericarditis c.Etiology - non-cardiac [] Anxiety []Pleurisy [] Cancer []Pneumonia, type [] Costochondritis []Pneumothorax [] GERD/Esophagitis []Pulmonary embolism [] Unable to determine []Other: Condition Present on Admission: [] Yes [] No []Clinically Undeterminable Please also document in your Progress Notes and/or Discharge Summary and indicate if the condition was present on admission. Dr. INDU KEEN Date/Time MTDD
[2018-02-02] MEDS: Heparin 5000 units/ml inj SUBQ SCH ×2 (09:00→21:11)
[2018-02-02] MEDS: Lisinopril 10mg tab ORAL SCH (09:10)
[2018-02-02] MEDS: Theophylline ER 100mg ORAL SCH ×2 (09:10→21:09)
[2018-02-02] MEDS: Depakote ER 500mg tab ORAL SCH ×2 (09:10→21:09)
[2018-02-02] MEDS: Aspirin EC 81mg tab ORAL SCH (09:10)
[2018-02-02] MEDS: Ziprasidone 20mg cap ORAL SCH ×2 (09:10→17:10)
[2018-02-02] MEDS: Lyrica 75mg cap ORAL SCH ×3 (09:48→21:09)
--- NOTE | 2018-02-02 13:45 | Consultation ---
DATE OF CONSULTATION: 02/02/2018 HISTORY OF PRESENT ILLNESS: This is a 37-year-old male patient, again who is admitted to [facility] secondary to chest pain and weakness, but this patient does have some extreme mood lability worsened by stress of his medical illness. He has a previous diagnosis of schizoaffective bipolar type and because his mood lability is worsening secondary to stress of his medical illness, his attending has continued to request daily psychiatric consultation for this patient to be seen. MENTAL STATUS EXAMINATION: This is a 37-year-old male with psychomotor agitation. Appearance is disheveled. Attitude, irritable and agitated. Affect, guarded and restricted. Intellect poor. Mood, depressed and anxious. Motor activity, psychomotor retardation. Attention span is poor. Orientation x2. Speech is pressured. Thought process, disorganized and illogical. Thought content, auditory hallucinations and paranoid delusions. Insight and judgment is poor. is poor. Description of delusions, delusions of people following him. Change his medications recently. DIAGNOSIS: Schizoaffective, bipolar type. PLAN: Plan for this patient is to treat him with Geodon 20 mg twice a day with meals, Depakote 500 mg q.12 hours, Seroquel 300 mg at bedtime, and Ativan 0.5 mg IV q.4 h. hours as needed, and encourage him to interact appropriately with staff and other patients. An 18 to 20 minutes of supportive therapy provided. Chart reviewed and discussed with staff. Seen and assessed at bedside. The patient continued to be followed by Psychiatry. Charmaine Victor M.D. DR: PAUL JOB#: [id number] CC:
--- NOTE | 2018-02-02 15:22 | General Progress Note ---
Assessment/Plan Problem List: (1) Left arm numbness prob old residual to neck surgery (2) Chest wall pain ICD Codes: R07.89 - Other chest pain SNOMED: 067560652 (3) Diabetes ICD Codes: E11.9 - Type 2 diabetes mellitus without complications SNOMED: 83058425 (4) Chest pain ICD Codes: R07.9 - Chest pain SNOMED: 61588873 Status: stable, progressing, tolerating diet Assessment/Plan ot pt diet pain control dc w legned hh Subjective Constitutional: Reports: weakness Allergies: Coded Allergies: No Known Allergies (Unverified , 02/06/15) All Systems: reviewed and negative except above Subjective calm in bed sl cp Objective Last 24 Hour Vital Signs Date Time Temp Pulse Resp B/P (MAP) Pulse Ox O2 Delivery O2 Flow Rate FiO2 02/02/18 13:37 98.1 02/02/18 13:07 98.1 02/02/18 11:38 98.1 102 19 108/96 96 98.1 02/02/18 10:47 98.4 02/02/18 09:48 98.4 02/02/18 09:10 122/68 02/02/18 09:07 98.4 02/02/18 08:00 98.4 102 19 122/68 96 98.4 02/02/18 07:25 93 16 Room Air 21 02/02/18 05:06 97.9 02/02/18 04:00 97.9 101 22 123/73 98 Room Air 97.9 02/02/18 00:00 98.6 97 22 116/65 97 Room Air 98.6 02/01/18 21:48 98.1 02/01/18 20:26 98.1 02/01/18 20:00 98.2 78 18 114/68 95 Room Air 98.2 02/01/18 19:28 95 20 Room Air 21 02/01/18 15:48 98.1 109 19 112/65 97 98.1 Intake and Output 02/01/18 02/02/18 19:00 07:00 Intake Total 480 ml 200 ml Balance 480 ml 200 ml Intake Oral 480 ml 200 ml Laboratory Tests 02/02/18 05:10: White Blood Count 9.5, Red Blood Count 4.91, Hemoglobin 15.0, Hematocrit 42.5, Mean Corpuscular Volume 87, Mean Corpuscular Hemoglobin 30.5, Mean Corpuscular Hemoglobin Concent 35.2, Red Cell Distribution Width 12.1, Platelet Count 214, Mean Platelet Volume 8.4, Neutrophils (%) (Auto) 54.1, Lymphocytes (%) (Auto) 34.8, Monocytes (%) (Auto) 7.3, Eosinophils (%) (Auto) 3.1H, Basophils (%) (Auto ) 0.8, Sodium Level 138, Potassium Level 3.8, Chloride Level 103, Carbon Dioxide Level 23, Anion Gap 12, Blood Urea Nitrogen 15, Creatinine 0.9, Estimat Glomerular Filtration Rate > 60, Glucose Level 133H, Calcium Level 9.4 Height (Feet): 5 Height (Inches): 11.00 Weight (Pounds): 237 General Appearance: alert EENT: normal ENT inspection Neck: normal alignment Cardiovascular: normal peripheral pulses, normal rate, regular rhythm Respiratory/Chest: chest wall non-tender, lungs clear, normal breath sounds Abdomen: normal bowel sounds, non tender, soft Extremities: normal inspection Edema: no edema noted Arm (L), no edema noted Arm (R), no edema noted Leg (L), no edema noted Leg (R), no edema noted Pedal (L), no edema noted Pedal (R), no edema noted Generalized Neurologic: responsive, motor weakness Skin: normal pigmentation, warm/dry INDU KEEN Feb 02, 2018 15:22
--- NOTE | 2018-02-02 15:28 | Cardiac Electrophysiology PN ---
Assessment/Plan Assessment/Plan 1. Atypical Chest pain. Ruled out for [place]. EKG no acute ischemic changes. Echocardiogram EF 70%. Nuclear stress test showed no ischemia 2. Hypertension. On Lisinopril 10 daily 3. Diabetes. 4. History of prior CVA, on aspirin. 5. Asthma, theophylline. JOSEFINA RN Subjective Subjective On NMB. No chest pain or SOB Objective Last 24 Hour Vital Signs Date Time Temp Pulse Resp B/P (MAP) Pulse Ox O2 Delivery O2 Flow Rate FiO2 02/02/18 13:37 98.1 02/02/18 13:07 98.1 02/02/18 11:38 98.1 102 19 108/96 96 98.1 02/02/18 10:47 98.4 02/02/18 09:48 98.4 02/02/18 09:10 122/68 02/02/18 09:07 98.4 02/02/18 08:00 98.4 102 19 122/68 96 98.4 02/02/18 07:25 93 16 Room Air 21 02/02/18 05:06 97.9 02/02/18 04:00 97.9 101 22 123/73 98 Room Air 97.9 02/02/18 00:00 98.6 97 22 116/65 97 Room Air 98.6 02/01/18 21:48 98.1 02/01/18 20:26 98.1 02/01/18 20:00 98.2 78 18 114/68 95 Room Air 98.2 02/01/18 19:28 95 20 Room Air 21 02/01/18 15:48 98.1 109 19 112/65 97 98.1 Intake and Output 02/01/18 02/02/18 19:00 07:00 Intake Total 480 ml 200 ml Balance 480 ml 200 ml Intake Oral 480 ml 200 ml Laboratory Tests Test 02/02/18 05:10 White Blood Count 9.5 K/UL (4.8-10.8) Red Blood Count 4.91 M/UL (4.70-6.10) Hemoglobin 15.0 G/DL (14.2-18.0) Hematocrit 42.5 % (42.0-52.0) Mean Corpuscular Volume 87 FL (80-99) Mean Corpuscular Hemoglobin 30.5 PG (27.0-31.0) Mean Corpuscular Hemoglobin Concent 35.2 G/DL (32.0-36.0) Red Cell Distribution Width 12.1 % (11.6-14.8) Platelet Count 214 K/UL (150-450) Mean Platelet Volume 8.4 FL (6.5-10.1) Neutrophils (%) (Auto) 54.1 % (45.0-75.0) Lymphocytes (%) (Auto) 34.8 % (20.0-45.0) Monocytes (%) (Auto) 7.3 % (1.0-10.0) Eosinophils (%) (Auto) 3.1 % (0.0-3.0) H Basophils (%) (Auto) 0.8 % (0.0-2.0) Sodium Level 138 MMOL/L (136-145) Potassium Level 3.8 MMOL/L (3.5-5.1) Chloride Level 103 MMOL/L (98-107) Carbon Dioxide Level 23 MMOL/L (21-32) Anion Gap 12 mmol/L (5-15) Blood Urea Nitrogen 15 mg/dL (7-18) Creatinine 0.9 MG/DL (0.55-1.30) Estimat Glomerular Filtration Rate > 60 mL/min (>60) Glucose Level 133 MG/DL (74-106) H Calcium Level 9.4 MG/DL (8.5-10.1) Objective HEAD AND NECK: No JVD. LUNGS: Clear. CARDIOVASCULAR: Regular S1 and S2 with no gallop or murmur. ABDOMEN: Soft. EXTREMITIES: No pitting edema. Hayes Kirk MD Feb 02, 2018 15:28
--- NOTE | 2018-02-02 20:05 | Pulmonology Progress Note ---
Assessment/Plan Problems: (1) Acute coronary syndrome (2) Opiate dependence (3) Generalized weakness (4) hemiparesis/hemiataxia , left. acute (5) COPD (chronic obstructive pulmonary disease) (6) Anxiety (7) Diabetes mellitus Assessment/Plan no new complains symptomatic treatment titrate fio2 to sat of 92% respiratory treatment sliding scale dc planning in process All medications and treatment were reviewed./ dc planning in progress Subjective ROS Limited/Unobtainable: No Allergies: Coded Allergies: No Known Allergies (Unverified , 02/06/15) Objective Last 24 Hour Vital Signs Date Time Temp Pulse Resp B/P (MAP) Pulse Ox O2 Delivery O2 Flow Rate FiO2 02/02/18 17:40 98.1 02/02/18 17:10 98.1 02/02/18 16:39 98.1 02/02/18 15:43 98.1 94 19 115/53 97 98.1 02/02/18 15:40 98.1 02/02/18 13:07 98.1 02/02/18 11:38 98.1 102 19 108/96 96 98.1 02/02/18 09:48 98.4 02/02/18 09:10 122/68 02/02/18 09:07 98.4 02/02/18 08:00 98.4 102 19 122/68 96 98.4 02/02/18 07:25 93 16 Room Air 21 02/02/18 05:06 97.9 02/02/18 04:00 97.9 101 22 123/73 98 Room Air 97.9 02/02/18 00:00 98.6 97 22 116/65 97 Room Air 98.6 02/01/18 21:48 98.1 02/01/18 20:26 98.1 Intake and Output 02/01/18 02/02/18 19:00 07:00 Intake Total 480 ml 200 ml Balance 480 ml 200 ml Intake Oral 480 ml 200 ml Objective General Appearance: WD/WN HEENT: normocephalic Respiratory/Chest: chest wall non-tender, lungs clear Cardiovascular: normal peripheral pulses, regular rhythm Abdomen: normal bowel sounds, no organomegaly Genitourinary: normal external genitalia Extremities: no clubbing Neurologic/Psychiatric: [employer] II-XII grossly normal, no motor/sensory deficits, oriented x 3 Laboratory Tests 02/02/18 05:10: White Blood Count 9.5, Red Blood Count 4.91, Hemoglobin 15.0, Hematocrit 42.5, Mean Corpuscular Volume 87, Mean Corpuscular Hemoglobin 30.5, Mean Corpuscular Hemoglobin Concent 35.2, Red Cell Distribution Width 12.1, Platelet Count 214, Mean Platelet Volume 8.4, Neutrophils (%) (Auto) 54.1, Lymphocytes (%) (Auto) 34.8, Monocytes (%) (Auto) 7.3, Eosinophils (%) (Auto) 3.1H, Basophils (%) (Auto ) 0.8, Sodium Level 138, Potassium Level 3.8, Chloride Level 103, Carbon Dioxide Level 23, Anion Gap 12, Blood Urea Nitrogen 15, Creatinine 0.9, Estimat Glomerular Filtration Rate > 60, Glucose Level 133H, Calcium Level 9.4 Current Medications Medications (Trade) Dose Ordered Sig/Sofia Route PRN Reason Start Time Stop Time Status Last Admin Dose Admin Acetaminophen (Tylenol) 650 mg Q4H PRN ORAL fever>100.5 01/29/18 22:00 02/26/18 21:59 Al Hydroxide/Mg Hydroxide (Mylanta II) 30 ml Q6H PRN ORAL dyspepsia 01/29/18 22:00 02/28/18 21:59 Albuterol/ Ipratropium (Albuterol/ Ipratropium) 3 ml Q4H PRN HHN Shortness of Breath 01/31/18 10:15 02/05/18 10:14 01/31/18 22:47 Aspirin (Ecotrin) 81 mg DAILY ORAL 01/30/18 09:00 02/26/18 12:59 02/02/18 09:10 Dextrose (Dextrose 50%) 25 ml PRN PRN IV BS 60 TO 69 MG/DL 01/29/18 22:00 02/28/18 21:59 Dextrose (Dextrose 50%) 50 ml PRN PRN IV BS LESS THAN 60 MG/DL 01/29/18 22:00 02/28/18 21:59 Divalproex Sodium (Depakote ER) 500 mg EVERY 12 HOURS ORAL 01/30/18 09:00 03/01/18 08:59 02/02/18 09:10 Heparin Sodium (Porcine) (Heparin 5000 units/ml) 5,000 units EVERY 12 HOURS SUBQ 01/30/18 09:00 03/01/18 08:59 01/31/18 08:33 Insulin Aspart (NovoLOG) BEFORE MEALS AND HS SUBQ 01/30/18 06:30 02/26/18 11:29 02/02/18 16:32 Lisinopril (Zestril) 10 mg DAILY ORAL 02/02/18 09:00 03/04/18 08:59 02/02/18 09:10 Lorazepam (Ativan 2mg/ml 1ml) 0.5 mg Q4H PRN IV For Anxiety 01/29/18 22:00 02/03/18 21:59 02/01/18 12:45 Morphine Sulfate (Morphine Sulfate) 1 mg Q4H PRN IVP Severe Pain (Pain Scale 7-10) 01/29/18 22:00 02/05/18 21:59 02/02/18 17:10 Nicotine (Nicoderm) 1 patch Q24H TDERMAL 01/31/18 10:30 03/02/18 10:29 02/02/18 09:49 Ondansetron HCl (Zofran) 4 mg Q6H PRN IVP Nausea & Vomiting 01/29/18 22:00 02/28/18 21:59 02/02/18 17:51 Oxycodone/ Acetaminophen (Percocet 5-325) 1 tab Q4H PRN ORAL Moderate Pain (Pain Scale 4-6) 01/29/18 22:00 02/03/18 21:59 Polyethylene Glycol (Miralax) 17 gm HSPRN PRN ORAL Constipation 01/29/18 21:00 02/28/18 20:59 Pregabalin (Lyrica) 75 mg TID@1000,1500,2000 ORAL 01/30/18 10:00 02/26/18 09:59 02/02/18 15:40 Promethazine HCl/ Codeine (Phenergan with Codeine) 5 ml Q4H PRN ORAL For Cough 01/29/18 22:00 02/26/18 21:59 Quetiapine Fumarate (SEROquel) 300 mg BEDTIME ORAL 01/30/18 21:00 02/26/18 20:59 02/01/18 21:48 Theophylline (Bobby-Dur) 100 mg EVERY 12 HOURS ORAL 01/30/18 09:00 03/01/18 08:59 02/02/18 09:10 Ziprasidone (Geodon) 20 mg TWICE A DAY ORAL 01/30/18 09:00 02/26/18 08:59 02/02/18 17:10 Zolpidem Tartrate (Ambien) 5 mg HSPRN PRN ORAL Insomnia 01/29/18 22:00 02/05/18 21:59 02/01/18 21:56 Lashanda Pham MD Feb 02, 2018 20:05
[2018-02-03] MEDS: Morphine Sulfate 4mg/ml Inj IVP PRN ×5 (02:38→20:00)
[2018-02-03 04:00] VITALS: BP 106/54
[2018-02-03] MEDS: NovoLOG Insulin Flexpen SUBQ SCH ×3 (05:54→17:11)
[2018-02-03 08:00] VITALS: BP 106/55
[2018-02-03] MEDS: Heparin 5000 units/ml inj SUBQ SCH (09:00)
[2018-02-03] MEDS: Theophylline ER 100mg ORAL SCH (10:10)
[2018-02-03] MEDS: Lisinopril 10mg tab ORAL SCH (10:15)
[2018-02-03] MEDS: Aspirin EC 81mg tab ORAL SCH (10:16)
[2018-02-03] MEDS: Lyrica 75mg cap ORAL SCH ×2 (10:20→16:08)
[2018-02-03] MEDS: Ziprasidone 20mg cap ORAL SCH ×2 (10:34→18:33)
[2018-02-03] MEDS: Depakote ER 500mg tab ORAL SCH (10:35)
[2018-02-03 12:00] VITALS: BP 114/61
--- NOTE | 2018-02-03 13:54 | General Progress Note ---
Assessment/Plan Problem List: (1) Left arm numbness prob old residual to neck surgery (2) Chest wall pain ICD Codes: R07.89 - Other chest pain SNOMED: 812113804 (3) Diabetes ICD Codes: E11.9 - Type 2 diabetes mellitus without complications SNOMED: 23882846 (4) Chest pain ICD Codes: R07.9 - Chest pain SNOMED: 85746974 Status: stable, progressing, tolerating diet Assessment/Plan ot pt diet pain control dc w legned hh Subjective Constitutional: Reports: malaise, weakness Allergies: Coded Allergies: No Known Allergies (Unverified , 02/06/15) All Systems: reviewed and negative except above Subjective calm in bed sl cp Objective Last 24 Hour Vital Signs Date Time Temp Pulse Resp B/P (MAP) Pulse Ox O2 Delivery O2 Flow Rate FiO2 02/03/18 12:00 Room Air 02/03/18 12:00 97.7 97 17 114/61 99 97.7 02/03/18 10:20 97.6 02/03/18 10:15 118/70 02/03/18 08:00 97.2 98 19 106/55 98 97.2 02/03/18 08:00 Room Air 02/03/18 06:57 97.5 02/03/18 04:00 97.5 89 19 106/54 100 97.5 02/03/18 03:08 98.1 02/03/18 02:38 98.1 02/02/18 23:53 98.1 110 20 116/56 93 98.1 02/02/18 21:27 98.2 02/02/18 21:09 98.2 02/02/18 21:00 98.2 02/02/18 20:00 98.2 108 20 115/53 93 98.2 02/02/18 19:30 99 18 Room Air 21 02/02/18 17:10 98.1 02/02/18 15:43 98.1 94 19 115/53 97 98.1 02/02/18 15:40 98.1 Intake and Output 02/02/18 02/03/18 19:00 07:00 Intake Total 580 ml 1000 ml Balance 580 ml 1000 ml Intake Oral 580 ml 1000 ml # Voids 3 Height (Feet): 5 Height (Inches): 11.00 Weight (Pounds): 237 General Appearance: alert EENT: normal ENT inspection Neck: normal alignment Cardiovascular: normal peripheral pulses, normal rate, regular rhythm Respiratory/Chest: chest wall non-tender, lungs clear, normal breath sounds Abdomen: normal bowel sounds, non tender, soft Extremities: normal inspection Edema: no edema noted Arm (L), no edema noted Arm (R), no edema noted Leg (L), no edema noted Leg (R), no edema noted Pedal (L), no edema noted Pedal (R), no edema noted Generalized Neurologic: responsive, motor weakness Skin: normal pigmentation, warm/dry INDU KEEN Feb 03, 2018 13:54
--- NOTE | 2018-02-03 14:04 | Cardiac Electrophysiology PN ---
Assessment/Plan Assessment/Plan 1. Atypical Chest pain. Ruled out for [place]. EKG no acute ischemic changes. Echocardiogram EF 70%. Nuclear stress test showed no ischemia No further 2. Hypertension. On Lisinopril 10 daily 3. Diabetes. 4. History of prior CVA, on aspirin. 5. Asthma, theophylline. JOSEFINA RN DC today Subjective Subjective On NMB. No chest pain or SOB. DC planning today. Awaiting transportation. Objective Last 24 Hour Vital Signs Date Time Temp Pulse Resp B/P (MAP) Pulse Ox O2 Delivery O2 Flow Rate FiO2 02/03/18 12:00 Room Air 02/03/18 12:00 97.7 97 17 114/61 99 97.7 02/03/18 10:20 97.6 02/03/18 10:15 118/70 02/03/18 08:00 97.2 98 19 106/55 98 97.2 02/03/18 08:00 Room Air 02/03/18 06:57 97.5 02/03/18 04:00 97.5 89 19 106/54 100 97.5 02/03/18 03:08 98.1 02/03/18 02:38 98.1 02/02/18 23:53 98.1 110 20 116/56 93 98.1 02/02/18 21:27 98.2 02/02/18 21:09 98.2 02/02/18 21:00 98.2 02/02/18 20:00 98.2 108 20 115/53 93 98.2 02/02/18 19:30 99 18 Room Air 21 02/02/18 17:10 98.1 02/02/18 15:43 98.1 94 19 115/53 97 98.1 02/02/18 15:40 98.1 Intake and Output 02/02/18 02/03/18 19:00 07:00 Intake Total 580 ml 1000 ml Balance 580 ml 1000 ml Intake Oral 580 ml 1000 ml # Voids 3 Objective HEAD AND NECK: No JVD. LUNGS: Clear. CARDIOVASCULAR: Regular S1 and S2 with no gallop or murmur. ABDOMEN: Soft. EXTREMITIES: No pitting edema. Hayes Kirk MD Feb 03, 2018 14:04
[2018-02-03] MEDS ORDERED: ACETAMINOPHEN325 M1 ORAL (15:23)
[2018-02-03] MEDS ORDERED: MYLANTA II30 ML ORAL (15:24)
[2018-02-03 15:25] VITALS: BP 109/54
[2018-02-03] MEDS ORDERED: ASPIRIN EC81 MG ORAL (15:26)
[2018-02-03] MEDS ORDERED: PROMETHAZINE-C118 M1 ORAL (15:27)
[2018-02-03] MEDS ORDERED: NOVOLOG100 UNIT/5 SUBQ (15:30)
[2018-02-03] MEDS ORDERED: DUONEB 0.5-3(2.53 ML HHN (15:31)
[2018-02-03] MEDS ORDERED: LISINOPRIL20 MG ORAL (15:37)
[2018-02-03] MEDS ORDERED: NICODERM CQ1 EAC1 TD ×2 (16:03→16:26)
[2018-02-03] MEDS ORDERED: OXYCODONE-ACET1 EAC3 ORAL (16:27)
[2018-02-03] MEDS ORDERED: MIRALAX17 G2 ORAL (16:28)
[2018-02-03] MEDS ORDERED: THEOPHYLLINE A100 MG ORAL (16:29)
--- NOTE | 2018-02-03 19:15 | Progress Note ---
DATE: 02/03/2018 SUBJECTIVE: This is a 37-year-old patient with chest pain and weakness with altered mental status and confusion, but he has a diagnosis of schizoaffective, bipolar type, and so, requires daily psychiatric consultation to stabilize his mood. MENTAL STATUS EXAMINATION: This is a 37-year-old male. Appearance disheveled, irritable, and agitated. Affect guarded and restricted. Intellect poor. Mood depressed and anxious. Motor activity, psychomotor agitation. Attention span is poor. Orientation x2. Speech is pressured. Thought process, disorganized and illogical. Insight and judgment is poor. DIAGNOSIS: Schizoaffective, bipolar type. PLAN: Treat him with Geodon 20 mg twice a day, Depakote 500 mg q.12 h., Seroquel 300 mg at bedtime. Provide 18 to 20 minutes of supportive therapy. Encouraged him to interact appropriately with staff and other patients. 18 to 20 minutes of supportive therapy provided. Chart reviewed. Discussed with staff. The patient seen and assessed in his room. Charmaine Victor M.D. DR: LEROY JOB#: [id number] CC:
--- NOTE | 2018-02-03 19:21 | Pulmonology Progress Note ---
Assessment/Plan Problems: (1) Acute coronary syndrome (2) Opiate dependence (3) Generalized weakness (4) hemiparesis/hemiataxia , left. acute (5) COPD (chronic obstructive pulmonary disease) (6) Anxiety (7) Diabetes mellitus Assessment/Plan no new complains symptomatic treatment titrate fio2 to sat of 92% respiratory treatment sliding scale dc planning in process All medications and treatment were reviewed./ dc planning in progress Subjective Allergies: Coded Allergies: No Known Allergies (Unverified , 02/06/15) Objective Last 24 Hour Vital Signs Date Time Temp Pulse Resp B/P (MAP) Pulse Ox O2 Delivery O2 Flow Rate FiO2 02/03/18 15:25 97.0 106 18 109/54 98 Room Air 97.0 02/03/18 12:00 Room Air 02/03/18 12:00 97.7 97 17 114/61 99 97.7 02/03/18 10:20 97.6 02/03/18 10:15 118/70 02/03/18 08:00 97.2 98 19 106/55 98 97.2 02/03/18 08:00 Room Air 02/03/18 06:57 97.5 02/03/18 04:00 97.5 89 19 106/54 100 97.5 02/03/18 03:08 98.1 02/03/18 02:38 98.1 02/02/18 23:53 98.1 110 20 116/56 93 98.1 02/02/18 21:27 98.2 02/02/18 21:09 98.2 02/02/18 21:00 98.2 02/02/18 20:00 98.2 108 20 115/53 93 98.2 02/02/18 19:30 99 18 Room Air 21 Intake and Output 02/02/18 02/03/18 19:00 07:00 Intake Total 580 ml 1000 ml Balance 580 ml 1000 ml Intake Oral 580 ml 1000 ml # Voids 3 Objective General Appearance: WD/WN HEENT: normocephalic Respiratory/Chest: chest wall non-tender, lungs clear Cardiovascular: normal peripheral pulses, regular rhythm Abdomen: normal bowel sounds, no organomegaly Genitourinary: normal external genitalia Extremities: no clubbing 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, no motor/sensory deficits, oriented x 3 Current Medications Medications (Trade) Dose Ordered Sig/Sofia Route PRN Reason Start Time Stop Time Status Last Admin Dose Admin Acetaminophen (Tylenol) 650 mg Q4H PRN ORAL fever>100.5 01/29/18 22:00 02/26/18 21:59 Al Hydroxide/Mg Hydroxide (Mylanta II) 30 ml Q6H PRN ORAL dyspepsia 01/29/18 22:00 02/28/18 21:59 Albuterol/ Ipratropium (Albuterol/ Ipratropium) 3 ml Q4H PRN HHN Shortness of Breath 01/31/18 10:15 02/05/18 10:14 01/31/18 22:47 Aspirin (Ecotrin) 81 mg DAILY ORAL 01/30/18 09:00 02/26/18 12:59 02/03/18 10:16 Dextrose (Dextrose 50%) 25 ml PRN PRN IV BS 60 TO 69 MG/DL 01/29/18 22:00 02/28/18 21:59 Dextrose (Dextrose 50%) 50 ml PRN PRN IV BS LESS THAN 60 MG/DL 01/29/18 22:00 02/28/18 21:59 Divalproex Sodium (Depakote ER) 500 mg EVERY 12 HOURS ORAL 01/30/18 09:00 03/01/18 08:59 02/03/18 10:35 Heparin Sodium (Porcine) (Heparin 5000 units/ml) 5,000 units EVERY 12 HOURS SUBQ 01/30/18 09:00 03/01/18 08:59 02/02/18 21:11 Insulin Aspart (NovoLOG) BEFORE MEALS AND HS SUBQ 01/30/18 06:30 02/26/18 11:29 02/03/18 17:11 Lisinopril (Zestril) 10 mg DAILY ORAL 02/02/18 09:00 03/04/18 08:59 02/03/18 10:15 Lorazepam (Ativan 2mg/ml 1ml) 0.5 mg Q4H PRN IV For Anxiety 01/29/18 22:00 02/03/18 21:59 02/01/18 12:45 Morphine Sulfate (Morphine Sulfate) 1 mg Q4H PRN IVP Severe Pain (Pain Scale 7-10) 01/29/18 22:00 4/13/18 21:59 02/03/18 15:33 Nicotine (Nicoderm) 1 patch Q24H TDERMAL 01/31/18 10:30 03/02/18 10:29 02/03/18 10:09 Ondansetron HCl (Zofran) 4 mg Q6H PRN IVP Nausea & Vomiting 01/29/18 22:00 02/28/18 21:59 02/02/18 17:51 Oxycodone/ Acetaminophen (Percocet 5-325) 1 tab Q4H PRN ORAL Moderate Pain (Pain Scale 4-6) 01/29/18 22:00 02/03/18 21:59 Polyethylene Glycol (Miralax) 17 gm HSPRN PRN ORAL Constipation 01/29/18 21:00 02/28/18 20:59 Pregabalin (Lyrica) 75 mg TID@1000,1500,2000 ORAL 01/30/18 10:00 02/26/18 09:59 02/03/18 16:08 Promethazine HCl/ Codeine (Phenergan with Codeine) 5 ml Q4H PRN ORAL For Cough 01/29/18 22:00 02/26/18 21:59 Quetiapine Fumarate (SEROquel) 300 mg BEDTIME ORAL 01/30/18 21:00 02/26/18 20:59 02/02/18 21:09 Theophylline (Bobby-Dur) 100 mg EVERY 12 HOURS ORAL 01/30/18 09:00 03/01/18 08:59 02/03/18 10:10 Ziprasidone (Geodon) 20 mg TWICE A DAY ORAL 01/30/18 09:00 02/26/18 08:59 02/03/18 18:33 Zolpidem Tartrate (Ambien) 5 mg HSPRN PRN ORAL Insomnia 01/29/18 22:00 02/05/18 21:59 02/01/18 21:56 Lashanda Pham MD Feb 03, 2018 19:21
[2018-02-03 20:00] VITALS: BP 125/59
--- NOTE | 2018-02-04 16:10 | Discharge Summary ---
Discharge Summary Discharge Summary Discharge Summary DATE OF ADMISSION: 01/27/2018 DATE OF DISCHARGE: 02/03/2018 CONSULTANTS: Dr. Lashanda Chinchilla PsyD BRIEF HOSPITAL COURSE: Patient is a 37-year-old male who was at the intermediate became homeless, presented with 2 days of increased left chest pain radiating to the left arm, with slight weakness and was very short of breath. He has medical history of COPD, hypertension, diabetes, and chronic pain. He complained of vague generalized chest pain that started on the day of admission. He is a very poor historian. On evaluation at ED, blood work showed elevated WBC 13.8, initial troponin was negative, probe BNP was 146. Urinalysis was negative. Chest x-ray showed no acute findings. Head CT with no mass effect, edema or acute bleed. He was admitted for evaluation of chest pain possible acute coronary syndrome, diabetes mellitus, anxiety, COPD and generalized weakness. EKG did not show any acute ischemic changes. Echocardiogram with ejection fraction of 55%, no evidence of pericardial effusion, no aortic regurgitation. Neurological consultation was done to evaluate possible acute stroke. According to the patient 2 months ago he had episodes of left-sided weakness, following day, his symptoms improved and was discharged. He had been symptom- free until couple of days prior to admission, he developed weakness in the left upper and left lower extremity with dysarthric speech. CT of the brain done at ED was negative. Brain MRI was negative for acute infarct. No intracranial hemorrhage, no mass effect edema or midline shift. Cervical spine MRI showed no definite focal cord signal abnormality. There was multilevel degenerative changes more pronounced at C4-C5. Overall not significantly progressed compared to prior exam on 02/07/2015. Psychiatric evaluation was done. He has a lot of mood lability and agitation worsened by the stress of his medical illness. He was diagnosed to have schizoaffective disorder, bipolar type. He was started on Russell and 20 mg twice a day for psychosis, Depakote and Seroquel. He was given PT/OT. He underwent myocardial perfusion scan, results were negative. Calculated post stress ejection fraction 68%. He was eventually discharged to a SNF. FINAL DIAGNOSES: Left arm numbness probably old residual to neck surgery Diabetes type 2 Atypical chest pain ruled out for PR Old CVA Asthma/COPD Hypertension Schizoaffective bipolar type Anxiety Left acute hemiparesis/silvia-ataxia Psychosomatic disorder DISPOSITION: He was discharged to [facility]. DISCHARGE MEDICATIONS: Refer to Discharge Medication List. I have been assigned to dictate discharge summary on this account, and I was not involved in the patient's management. Jocy Valdes NP Feb 04, 2018 16:10
== END 2018-02-03 20:15 | DRG 313 ==
LOC: EMR 23:39 → 2E 01-27 01:09 → EDBEDREQ 01-27 01:47 → 2E 01-27 03:24 → 4W 01-29 17:05
DX: R07.89 Other chest pain (principal); F11.20 Opioid dependence, uncomplicated; G81.94 Hemiplegia, unspecified affecting left nondominant side; E11.42 Type 2 diabetes mellitus with diabetic polyneuropathy; M79.602 Pain in left arm; R20.0 Anesthesia of skin; I10 Essential (primary) hypertension; J44.9 Chronic obstructive pulmonary disease, unspecified; E78.5 Hyperlipidemia, unspecified; F41.9 Anxiety disorder, unspecified; Z79.4 Long term (current) use of insulin; F25.0 Schizoaffective disorder, bipolar type; F45.9 Somatoform disorder, unspecified; G89.29 Other chronic pain; Z86.73 Personal history of transient ischemic attack (TIA), and cerebral infarction without residual deficits; F17.210 Nicotine dependence, cigarettes, uncomplicated
CPT/HCPCS: 36415; 70450; 70551; 71045; 72141; 78452; 80048; 80053; 80307; 81003; 82962; 83735; 83880; 84484; 85025; 85610; 85730; 87081; 93005; 93017; 93306; 94640; 94664; 99285; J1815; J2405; J2785; J7620

== ENCOUNTER 2018-04-07 07:35 | Inpatient (IN) | payer MEDICARE, MEDICAID ==
[~2018-04-07] VITALS: Ht 180.3 cm; Wt 104.3 kg
[~2018-04-07 07:35] MED LIST changes: +ACETAMINOPHEN325 M1 ORAL; +ASPIRIN EC81 MG ORAL; +DUONEB 0.5-3(2.53 ML HHN; +LISINOPRIL20 MG ORAL; +MIRALAX17 G2 ORAL; +MYLANTA II30 ML ORAL; +NICODERM CQ1 EAC1 TD; +NOVOLOG100 UNIT/5 SUBQ; +OXYCODONE-ACET1 EAC3 ORAL; +PROMETHAZINE-C118 M1 ORAL; +THEOPHYLLINE A100 MG ORAL
[2018-04-07] MEDS ORDERED: TRAZODONE HCL150 MG ORAL (07:47)
[2018-04-07] MEDS ORDERED: DEPAKOTE250 MG PO (07:47)
[2018-04-07] MEDS ORDERED: ZYPREXA2.5 MG ORAL (07:47)
[2018-04-07] MEDS ORDERED: Ketorolac 60mg Inj IM ONE (08:15)
[2018-04-07 09:08] VITALS: BP 122/77
[2018-04-07 09:13] LABS: BASOPHILS % (AUTO) 0.9 % (0.0-2.0); EOSINOPHILS % (AUTO) 1.7 % (0.0-3.0); HEMATOCRIT 45.6 % (42.0-52.0); HEMOGLOBIN 15.1 G/DL (14.2-18.0); LYMPHOCYTES % (AUTO) 23.4 % (20.0-45.0); MEAN CORPUSCULAR VOLUME 86 FL (80-99); MONOCYTES % (AUTO) 9.7 % (1.0-10.0); NEUTROPHILS % (AUTO) 64.3 % (45.0-75.0); PLATELET COUNT 216 K/UL (150-450); RED BLOOD COUNT 5.33 M/UL (4.70-6.10); RED CELL DISTRIBUTION WIDTH 12.2 % (11.6-14.8); WHITE BLOOD COUNT 10.7 K/UL (4.8-10.8)
--- NOTE | 2018-04-07 09:16 | Emergency Room Report ---
History of Present Illness General Chief Complaint: Pain Source: Patient Present Illness HPI This patient has a history of diabetes, COPD, CVA. He states that he has been walking a lot. He states that he currently is living on [address] because he doesn't have enough money to pay for an apartment. He states that he has blisters on both of his feet and this is causing severe pain and difficulty walking. He states that he is also had multiple falls. He states that he has been unsteady and feels disoriented. He denies chest pain or shortness of breath. He denies abdominal pain. He has no other complaints. Allergies: Coded Allergies: No Known Allergies (Unverified , 02/06/15) Patient History Past Medical History: see triage record, DM, HTN, COPD, CVA/TIA, psych hx Social History: Reports: smoking; Denies: alcohol use, drug use Reviewed Nursing Documentation: PMH: Agreed; PSxH: Agreed Nursing Documentation-PMH Hx Cardiac Problems: Yes Hx Hypertension: Yes Hx COPD: Yes Hx Diabetes: Yes Hx Cancer: No Hx Gastrointestinal Problems: Yes Hx Neurological Problems: Yes - BACK & NECK SURGERY Hx Cerebrovascular Accident: Yes - November 2017 Hx Peripheral Neuropathy: Yes Hx Head Trauma: Yes Hx Dizziness: Yes Hx Weakness: Yes Review of Systems All Other Systems: negative except mentioned in HPI Physical Exam Vital Signs Date Time Temp Pulse Resp B/P (MAP) Pulse Ox O2 Delivery O2 Flow Rate FiO2 04/07/18 07:44 98.5 100 18 127/69 95 Room Air 98.4 Sp02 EP Interpretation: reviewed, normal General Appearance: no apparent distress, alert, GCS 15, non-toxic Head: normocephalic, atraumatic Eyes: bilateral eye normal inspection, bilateral eye PERRL ENT: hearing grossly normal, normal pharynx, no angioedema, normal voice Neck: full range of motion, supple/symm/no masses Respiratory: chest non-tender, lungs clear, normal breath sounds, no respiratory distress, no retraction, no accessory muscle use, speaking full sentences Cardiovascular #1: regular rate, rhythm, no edema Gastrointestinal: normal bowel sounds, non tender, soft, non-distended, no guarding, no rebound Rectal: deferred Musculoskeletal: back normal, normal range of motion, other - Antalgic gait, Multiple bulla on bilateral bottom of feet. Neurologic: alert, oriented x3, responsive, motor strength/tone normal, sensory intact, speech normal Psychiatric: judgement/insight normal, memory normal, mood/affect normal, no suicidal/homicidal ideation Skin: warm/dry, well hydrated, other - See MSK exam Medical Decision Making Diagnostic Impression: Primary Impression: Gravely disabled Additional Impression: Blisters of multiple sites ER Course This patient has multiple chronic medical conditions. He is unable to care for himself. He has blisters on his feet from walking all over the city and not being able to manage his personal life and social situation. He has severe pain on his feet from blisters from walking. He is admitted for being gravely disabled. His primary care physician will plan on finding placement for this patient where he can receive some medical/nursing assistance with his chronic medical conditions and assist in his living conditions. Laboratory Tests Test 04/07/18 09:00 White Blood Count 10.7 K/UL (4.8-10.8) Red Blood Count 5.33 M/UL (4.70-6.10) Hemoglobin 15.1 G/DL (14.2-18.0) Hematocrit 45.6 % (42.0-52.0) Mean Corpuscular Volume 86 FL (80-99) Mean Corpuscular Hemoglobin 28.3 PG (27.0-31.0) Mean Corpuscular Hemoglobin Concent 33.1 G/DL (32.0-36.0) Red Cell Distribution Width 12.2 % (11.6-14.8) Platelet Count 216 K/UL (150-450) Mean Platelet Volume 8.0 FL (6.5-10.1) Neutrophils (%) (Auto) 64.3 % (45.0-75.0) Lymphocytes (%) (Auto) 23.4 % (20.0-45.0) Monocytes (%) (Auto) 9.7 % (1.0-10.0) Eosinophils (%) (Auto) 1.7 % (0.0-3.0) Basophils (%) (Auto) 0.9 % (0.0-2.0) Sodium Level 139 MMOL/L (136-145) Potassium Level 3.9 MMOL/L (3.5-5.1) Chloride Level 105 MMOL/L (98-107) Carbon Dioxide Level 26 MMOL/L (21-32) Anion Gap 8 mmol/L (5-15) Blood Urea Nitrogen 17 mg/dL (7-18) Creatinine 1.0 MG/DL (0.55-1.30) Estimate Glomerular Filtration Rate > 60 mL/min (>60) Glucose Level 138 MG/DL (74-106) H Lactic Acid Level 1.40 mmol/L (0.4-2.0) Calcium Level 9.3 MG/DL (8.5-10.1) Total Bilirubin 0.4 MG/DL (0.2-1.0) Aspartate Amino Transferase (AST) 21 U/L (15-37) Alanine Aminotransferase (ALT) 29 U/L (12-78) Alkaline Phosphatase 67 U/L (46-116) Total Creatine Kinase 317 U/L (26-308) H Total Protein 6.8 G/DL (6.4-8.2) Albumin 3.7 G/DL (3.4-5.0) Globulin 3.1 g/dL Albumin/Globulin Ratio 1.2 (1.0-2.7) Last Vital Signs Date Time Temp Pulse Resp B/P (MAP) Pulse Ox O2 Delivery O2 Flow Rate FiO2 04/07/18 08:28 98.5 04/07/18 07:44 100 18 127/69 95 Room Air Disposition: ADMITTED INPATIENT Condition: Stable Referrals: Aniceto Sepulveda DO (PCP) Fadumo Marquez DO Apr 07, 2018 09:15
[2018-04-07 09:25] LABS: ANION GAP 8 mmol/L (5-15); BLOOD UREA NITROGEN 17 mg/dL (7-18); CALCIUM 9.3 MG/DL (8.5-10.1); CARBON DIOXIDE 26 MMOL/L (21-32); CHLORIDE 105 MMOL/L (98-107); POTASSIUM 3.9 MMOL/L (3.5-5.1); SODIUM 139 MMOL/L (136-145)
[2018-04-07 09:30] LABS: ALANINE AMINOTRANSFERASE 29 U/L (12-78); ALBUMIN 3.7 G/DL (3.4-5.0); ALBUMIN/GLOBULIN RATIO 1.2 (1.0-2.7); ALKALINE PHOSPHATASE 67 U/L (46-116); ASPARTATE AMINO TRANSFERASE 21 U/L (15-37); BILIRUBIN,TOTAL 0.4 MG/DL (0.2-1.0); CREATINE KINASE 317 U/L (26-308)
[2018-04-07 11:49] VITALS: BP 118/77
[2018-04-07] MEDS ORDERED: oxyCODONE HCL/Acetaminophen 5/325mg ORAL PRN ×2 (15:30→15:45)
[2018-04-07] MEDS ORDERED: Mylanta II UD 30ml ORAL PRN (15:45)
[2018-04-07] MEDS ORDERED: LORazepam Inj 2mg/ml 1ml IV PRN (16:00)
--- NOTE | 2018-04-07 16:32 | Consultation ---
History of Present Illness General Date patient seen: Apr 07, 2018 Chief Complaint: Pain Present Illness HPI 37 year old male with history of diabetes, COPD, CVA. He states that he has been walking a lot. He states that he currently is living on the [address] because he doesn't have enough money to pay for an apartment. He states that he has blisters on both of his feet and this is causing severe pain and difficulty walking. He states that he is also had multiple falls. He states that he has been unsteady and feels disoriented. He denies chest pain or shortness of breath. He denies abdominal pain. He has no other complaints. Allergies: Coded Allergies: No Known Allergies (Unverified , 02/06/15) Medication History Scheduled Aspirin Ec* (Aspirin Ec*), 81 MG ORAL DAILY, (Reported) Divalproex Sodium* (Depakote*), 500 MG PO Q12HR, (Reported) Divalproex Sodium* (Depakote*), 250 MG PO Q12HR, (Reported) Insulin Aspart (Novolog Flexpen), 30 SQ TID, (Reported) Insulin Aspart (Novolog), SUBQ AC+HS, (Reported) Insulin Detemir (Levemir), 30 SUBQ BID, (Reported) Lisinopril (Lisinopril*), 10 MG ORAL DAILY, (Reported) Metformin Hcl* (Metformin Hcl*), 500 MG ORAL TIDAC, (Reported) Nicotine 14MG Patch* (Nicoderm Cq 14MG*), 1 EACH TD DAILY, (Reported) Nicotine 14MG Patch* (Nicoderm Cq 14MG*), 1 EACH TD DAILY, (Reported) Olanzapine* (Zyprexa*), 2.5 MG ORAL DAILY, (Reported) Olanzapine* (Zyprexa*), 2.5 MG ORAL DAILY, (Reported) Pregabalin* (Lyrica*), 75 MG ORAL THREE TIMES A DAY, (Reported) Quetiapine Fumarate* (Seroquel*), 300 MG ORAL BEDTIME, (Reported) Theophylline (Theodur*), 100 MG ORAL Q12HR, (Reported) Trazodone* (Trazodone*), 150 MG ORAL BEDTIME, (Reported) Ziprasidone Hcl* (Geodon*), 20 MG ORAL DAILY, (Reported) Scheduled PRN Acetaminophen* (Acetaminophen 325MG Tablet*), 325 MG ORAL Q4H PRN for Mild Pain/ Temp > 100.5, (Reported) Acetaminophen* (Acetaminophen 325MG Tablet*), 650 MG ORAL Q4H PRN for Prn Headache/Temp > 101, (Reported) Al Hydroxide/mg Hydroxide (Mag-Al Plus Suspension), 30 ML ORAL Q6HR PRN for dyspepsia, (Reported) Codeine/Promethazine Hcl* (Promethazine-Codeine Syrup*), 5 ML ORAL Q4H PRN for For Cough, (Reported) Hydromorphone Hcl (Dilaudid), 1 MG PO Q4HR PRN for For Pain, (Reported) Ipratropium/Albuterol Sulfate (DuoNeb 0.5-3(2.5)mg/3ml), 3 ML HHN Q4HR PRN for Shortness of Breath, (Reported) Oxycodone Hcl/Acetaminophen 5-325* (Oxycodone-Acetaminophen 5-325*), 1 TAB ORAL Q4H PRN for For Pain, (Reported) Oxycodone Hcl/Acetaminophen 5-325* (Oxycodone-Acetaminophen 5-325*), 1 TAB ORAL Q4H PRN for 4-6, (Reported) Oxycodone/Acetaminophen 5-325* (Percocet 5-325 Mg Tablet*), 1 TAB ORAL Q4H PRN for For Pain, (Reported) Polyethylene Glycol 3350* (Miralax*), 17 GM ORAL DAILY PRN for Constipation, ( Reported) Zolpidem Tartrate* (Ambien*), 5 MG ORAL BEDTIME PRN for Insomnia, (Reported) Miscellaneous Medications Insulin Aspart* (Novolog*), 0 SUBQ, (Reported) Insulin Aspart* (Novolog*), 0 SUBQ, (Reported) Unable to Obtain Medications (Unable To Obtain Meds), (Reported) Patient History Healthcare decision maker Resuscitation status Advanced Directive on File Review of Systems All Other Systems: negative except mentioned in HPI Physical Exam General Appearance: WD/WN Lines, tubes and drains: peripheral HEENT: anicteric Neck: normal alignment, supple Respiratory/Chest: lungs clear, normal breath sounds, no accessory muscle use Cardiovascular/Chest: normal peripheral pulses, regularly irregular Abdomen: normal bowel sounds, soft Genitourinary/Rectal: normal genital exam Last 24 Hour Vital Signs Date Time Temp Pulse Resp B/P (MAP) Pulse Ox O2 Delivery O2 Flow Rate FiO2 04/07/18 13:57 97.6 95 23 123/69 96 Room Air 97.5 04/07/18 11:49 97.5 89 25 118/77 95 Room Air 97.5 04/07/18 09:08 97.2 80 13 122/77 97 Room Air 97.2 04/07/18 08:58 97.2 04/07/18 08:28 98.5 04/07/18 07:44 98.5 100 18 127/69 95 Room Air 98.4 Laboratory Tests Test 04/07/18 09:00 White Blood Count 10.7 K/UL (4.8-10.8) Red Blood Count 5.33 M/UL (4.70-6.10) Hemoglobin 15.1 G/DL (14.2-18.0) Hematocrit 45.6 % (42.0-52.0) Mean Corpuscular Volume 86 FL (80-99) Mean Corpuscular Hemoglobin 28.3 PG (27.0-31.0) Mean Corpuscular Hemoglobin Concent 33.1 G/DL (32.0-36.0) Red Cell Distribution Width 12.2 % (11.6-14.8) Platelet Count 216 K/UL (150-450) Mean Platelet Volume 8.0 FL (6.5-10.1) Neutrophils (%) (Auto) 64.3 % (45.0-75.0) Lymphocytes (%) (Auto) 23.4 % (20.0-45.0) Monocytes (%) (Auto) 9.7 % (1.0-10.0) Eosinophils (%) (Auto) 1.7 % (0.0-3.0) Basophils (%) (Auto) 0.9 % (0.0-2.0) Sodium Level 139 MMOL/L (136-145) Potassium Level 3.9 MMOL/L (3.5-5.1) Chloride Level 105 MMOL/L (98-107) Carbon Dioxide Level 26 MMOL/L (21-32) Anion Gap 8 mmol/L (5-15) Blood Urea Nitrogen 17 mg/dL (7-18) Creatinine 1.0 MG/DL (0.55-1.30) Estimat Glomerular Filtration Rate > 60 mL/min (>60) Glucose Level 138 MG/DL (74-106) H Lactic Acid Level 1.40 mmol/L (0.4-2.0) Calcium Level 9.3 MG/DL (8.5-10.1) Total Bilirubin 0.4 MG/DL (0.2-1.0) Aspartate Amino Transf (AST/SGOT) 21 U/L (15-37) Alanine Aminotransferase (ALT/SGPT) 29 U/L (12-78) Alkaline Phosphatase 67 U/L (46-116) Total Creatine Kinase 317 U/L (26-308) H Total Protein 6.8 G/DL (6.4-8.2) Albumin 3.7 G/DL (3.4-5.0) Globulin 3.1 g/dL Albumin/Globulin Ratio 1.2 (1.0-2.7) Height (Feet): 5 Height (Inches): 11.00 Weight (Pounds): 230 Medications Current Medications Medications (Trade) Dose Ordered Sig/Sofia Route PRN Reason Start Time Stop Time Status Last Admin Dose Admin Acetaminophen (Tylenol) 650 mg Q4H PRN ORAL T>100.5 04/07/18 15:45 05/07/18 15:44 Al Hydroxide/Mg Hydroxide (Mylanta II) 30 ml Q6H PRN ORAL dyspepsia 04/07/18 15:45 05/07/18 15:44 Dextrose (Dextrose 50%) 25 ml PRN IV Hypoglycemia 04/07/18 16:00 05/07/18 15:59 Dextrose (Dextrose 50%) 50 ml PRN IV hypoglycemia 04/07/18 16:00 05/07/18 15:59 Divalproex Sodium (Depakote) 250 mg Q12HR ORAL 04/07/18 21:00 05/07/18 20:59 Heparin Sodium (Porcine) (Heparin 5000 units/ml) 5,000 units EVERY 12 HOURS SUBQ 04/07/18 21:00 05/07/18 20:59 Insulin Aspart (NovoLOG) BEFORE MEALS AND HS SUBQ 04/07/18 17:00 05/07/18 16:59 Lorazepam (Ativan 2mg/ml 1ml) 0.5 mg Q4H PRN IV For Anxiety 04/07/18 16:00 04/14/18 15:59 Morphine Sulfate (Morphine Sulfate) 1 mg Q4H PRN IVP Severe Pain (Pain Scale 7-10) 04/07/18 15:45 04/14/18 15:44 Olanzapine (ZyPREXA) 2.5 mg DAILY ORAL 04/08/18 09:00 05/08/18 08:59 Ondansetron HCl (Zofran) 4 mg Q6H PRN IVP Nausea & Vomiting 04/07/18 15:45 05/07/18 15:44 Oxycodone/ Acetaminophen (Percocet 5-325) 1 tab Q4H PRN ORAL Moderate Pain (Pain Scale 4-6) 04/07/18 15:45 04/14/18 15:29 Polyethylene Glycol (Miralax) 17 gm HSPRN PRN ORAL Constipation 04/07/18 21:00 05/07/18 20:59 Pregabalin (Lyrica) 75 mg Q8HR ORAL 04/07/18 18:00 05/07/18 17:59 Quetiapine Fumarate (SEROquel) 300 mg BEDTIME ORAL 04/07/18 21:00 05/07/18 20:59 Theophylline (Bobby-Dur) 100 mg Q12HR ORAL 04/07/18 21:00 05/07/18 20:59 Trazodone HCl (Desyrel) 150 mg BEDTIME ORAL 04/07/18 21:00 05/07/18 20:59 Ziprasidone (Geodon) 20 mg DAILY ORAL 04/08/18 09:00 05/08/18 08:59 Zolpidem Tartrate (Ambien) 5 mg HSPRN PRN ORAL Insomnia 04/07/18 21:00 04/14/18 20:59 Assessment/Plan Problem List: (1) COPD (chronic obstructive pulmonary disease) ICD Codes: J44.9 - Chronic obstructive pulmonary disease, unspecified SNOMED: 48663390 (2) HTN (hypertension) ICD Codes: I10 - Essential (primary) hypertension SNOMED: 58184208 (3) Diabetes ICD Codes: E11.9 - Diabetes mellitus SNOMED: 24259529 (4) CVA (cerebral vascular accident) ICD Codes: I63.9 - Cerebral infarction, unspecified SNOMED: 681033310 Assessment/Plan respiratory treatment symptomatic treatment check electrolytes dvt prophylaxis Lashanda Pham MD Apr 07, 2018 16:31
[2018-04-07] MEDS: NovoLOG Insulin Flexpen SUBQ SCH ×2 (17:00→20:49)
[2018-04-07] MEDS: Lyrica 75mg cap ORAL SCH (17:15)
[2018-04-07] MEDS: Morphine Sulfate 2mg/ml Inj IVP PRN ×2 (17:15→21:15)
--- NOTE | 2018-04-07 17:30 | History and Physical Report ---
DATE OF ADMISSION: 04/07/2018 CONSULTANTS: 1. Lashanda Pham M.D. 2. Charmaine Victor M.D. 3. Tl Trimble D.P.M. 4. Ellis Contreras M.D. 5. Antonio Napier M.D. CHIEF COMPLAINT: Blister feet, confusion, and weakness. BRIEF HISTORY: This is a 37-year-old male, who lives with friends, apparently became homeless and got kicked out. He came into [place] ER last night with severe foot pain and weakness. He was found to have multiple blisters on the bottom of the sole. The patient is being admitted to medical floor for further treatment. Currently, calm in bed, slight general pain. No complaints. PAST MEDICAL HISTORY: Diabetes, hypertension, and CVA. PAST SURGICAL HISTORY: Back and neck. MEDICATIONS: Currently, just Toradol and intravenous fluids. ALLERGIES: Denies. SOCIAL HISTORY: Positive smoking. No alcohol. No intravenous drug abuse. FAMILY HISTORY: Noncontributory. REVIEW OF SYSTEMS: No chest pain. No shortness of breath. No nausea, vomiting, or diarrhea. PHYSICAL EXAMINATION: GENERAL: Calm in bed, in the ER gurney, oriented x3, and in no acute distress. VITAL SIGNS: Temperature 97 degrees, pulse 89, respirations 25, and blood pressure 118/77. CARDIOVASCULAR: No murmurs. LUNGS: Distant and clear. ABDOMEN: Bowel sounds positive. Nontender. Nondistended. EXTREMITIES: No cyanosis, clubbing, or edema. Bottom of the sole with multiple 1 inch x 0.5 inch blister in the bottom of metatarsal bilaterally. NEUROLOGIC: The patient moves all extremities. Slightly weak. LABORATORY DATA: CBC is normal. BMP show glucose 138 and creatine kinase is 317, otherwise BMP is normal. ASSESSMENT: 1. Severe blister to the foot. 2. Encephalopathy. 3. Weakness. 4. Diabetes. 5. Hypertension. 6. Cerebrovascular accident. PLAN: 1. Continue premedications. 2. Wound care. 3. OT, PT, and dietary followup. 4. Blood pressure and blood sugar control. 5. Pain control. 6. CBC and BMP in the morning. 7. Dr. Pham, Dr. Victor, Dr. Trimble, Dr. Contreras, and Dr. Napier to consult. Aniceto Sepulveda D.O. DR: [place] JOB#: [id number] CC:
--- NOTE | 2018-04-07 19:44 | Consultation ---
History of Present Illness General Date patient seen: Apr 07, 2018 Chief Complaint: Pain Present Illness HPI 37 y/o M with hx of COPD, DM, HTN, CVA/TIA, back and neck surgery, peripheral neuropathy, psych hx, homelessness presents to ED on 04/07 with blisters on b/l feet that is causing severe pain and difficulty walking. Patient has been walking a lot recently since now is homeless. Also refers multiple falls. Endorses feeling unsteady and disoriented. Denies CP, SOB, abd pain afebrile no leukocytosis off abx Allergies: Coded Allergies: No Known Allergies (Unverified , 02/06/15) Medication History Scheduled Aspirin Ec* (Aspirin Ec*), 81 MG ORAL DAILY, (Reported) Divalproex Sodium* (Depakote*), 500 MG PO Q12HR, (Reported) Divalproex Sodium* (Depakote*), 250 MG PO Q12HR, (Reported) Insulin Aspart (Novolog Flexpen), 30 SQ TID, (Reported) Insulin Aspart (Novolog), SUBQ AC+HS, (Reported) Insulin Detemir (Levemir), 30 SUBQ BID, (Reported) Lisinopril (Lisinopril*), 10 MG ORAL DAILY, (Reported) Metformin Hcl* (Metformin Hcl*), 500 MG ORAL TIDAC, (Reported) Nicotine 14MG Patch* (Nicoderm Cq 14MG*), 1 EACH TD DAILY, (Reported) Nicotine 14MG Patch* (Nicoderm Cq 14MG*), 1 EACH TD DAILY, (Reported) Olanzapine* (Zyprexa*), 2.5 MG ORAL DAILY, (Reported) Pregabalin* (Lyrica*), 75 MG ORAL THREE TIMES A DAY, (Reported) Quetiapine Fumarate* (Seroquel*), 300 MG ORAL BEDTIME, (Reported) Theophylline (Theodur*), 100 MG ORAL Q12HR, (Reported) Trazodone* (Trazodone*), 150 MG ORAL BEDTIME, (Reported) Ziprasidone Hcl* (Geodon*), 20 MG ORAL DAILY, (Reported) Scheduled PRN Acetaminophen* (Acetaminophen 325MG Tablet*), 325 MG ORAL Q4H PRN for Mild Pain/ Temp > 100.5, (Reported) Al Hydroxide/mg Hydroxide (Mag-Al Plus Suspension), 30 ML ORAL Q6HR PRN for dyspepsia, (Reported) Codeine/Promethazine Hcl* (Promethazine-Codeine Syrup*), 5 ML ORAL Q4H PRN for For Cough, (Reported) Hydromorphone Hcl (Dilaudid), 1 MG PO Q4HR PRN for For Pain, (Reported) Ipratropium/Albuterol Sulfate (DuoNeb 0.5-3(2.5)mg/3ml), 3 ML HHN Q4HR PRN for Shortness of Breath, (Reported) Oxycodone Hcl/Acetaminophen 5-325* (Oxycodone-Acetaminophen 5-325*), 1 TAB ORAL Q4H PRN for For Pain, (Reported) Oxycodone/Acetaminophen 5-325* (Percocet 5-325 Mg Tablet*), 1 TAB ORAL Q4H PRN for For Pain, (Reported) Polyethylene Glycol 3350* (Miralax*), 17 GM ORAL DAILY PRN for Constipation, ( Reported) Zolpidem Tartrate* (Ambien*), 5 MG ORAL BEDTIME PRN for Insomnia, (Reported) Miscellaneous Medications Insulin Aspart* (Novolog*), 0 SUBQ, (Reported) Insulin Aspart* (Novolog*), 0 SUBQ, (Reported) Unable to Obtain Medications (Unable To Obtain Meds), (Reported) Patient History Healthcare decision maker Resuscitation status Advanced Directive on File Patient History Narrative Pmhx: as above Shx: Reports: smoking; Denies: alcohol use, drug use Fhx: non contributory Review of Systems All Other Systems: negative except mentioned in HPI Physical Exam Physical Exam Narrative GENERAL: Calm in bed, in the ER gurney, oriented x3, and in no acute distress. CARDIOVASCULAR: No murmurs. LUNGS: Distant and clear. ABDOMEN: Bowel sounds positive. Nontender. Nondistended. EXTREMITIES: No cyanosis, clubbing, or edema. Bottom of the sole with multiple 1 inch x 0.5 inch blister in the bottom of metatarsal bilaterally. no purulent discharge NEUROLOGIC: The patient moves all extremities. Slightly weak. Last 24 Hour Vital Signs Date Time Temp Pulse Resp B/P (MAP) Pulse Ox O2 Delivery O2 Flow Rate FiO2 04/07/18 18:14 97.6 04/07/18 17:45 97.6 04/07/18 17:15 97.6 04/07/18 17:15 97.6 04/07/18 13:57 97.6 95 23 123/69 96 Room Air 97.5 04/07/18 11:49 97.5 89 25 118/77 95 Room Air 97.5 04/07/18 09:08 97.2 80 13 122/77 97 Room Air 97.2 04/07/18 08:58 97.2 04/07/18 08:28 98.5 04/07/18 07:44 98.5 100 18 127/69 95 Room Air 98.4 Laboratory Tests Test 04/07/18 09:00 White Blood Count 10.7 K/UL (4.8-10.8) Red Blood Count 5.33 M/UL (4.70-6.10) Hemoglobin 15.1 G/DL (14.2-18.0) Hematocrit 45.6 % (42.0-52.0) Mean Corpuscular Volume 86 FL (80-99) Mean Corpuscular Hemoglobin 28.3 PG (27.0-31.0) Mean Corpuscular Hemoglobin Concent 33.1 G/DL (32.0-36.0) Red Cell Distribution Width 12.2 % (11.6-14.8) Platelet Count 216 K/UL (150-450) Mean Platelet Volume 8.0 FL (6.5-10.1) Neutrophils (%) (Auto) 64.3 % (45.0-75.0) Lymphocytes (%) (Auto) 23.4 % (20.0-45.0) Monocytes (%) (Auto) 9.7 % (1.0-10.0) Eosinophils (%) (Auto) 1.7 % (0.0-3.0) Basophils (%) (Auto) 0.9 % (0.0-2.0) Sodium Level 139 MMOL/L (136-145) Potassium Level 3.9 MMOL/L (3.5-5.1) Chloride Level 105 MMOL/L (98-107) Carbon Dioxide Level 26 MMOL/L (21-32) Anion Gap 8 mmol/L (5-15) Blood Urea Nitrogen 17 mg/dL (7-18) Creatinine 1.0 MG/DL (0.55-1.30) Estimat Glomerular Filtration Rate > 60 mL/min (>60) Glucose Level 138 MG/DL (74-106) H Lactic Acid Level 1.40 mmol/L (0.4-2.0) Calcium Level 9.3 MG/DL (8.5-10.1) Total Bilirubin 0.4 MG/DL (0.2-1.0) Aspartate Amino Transf (AST/SGOT) 21 U/L (15-37) Alanine Aminotransferase (ALT/SGPT) 29 U/L (12-78) Alkaline Phosphatase 67 U/L (46-116) Total Creatine Kinase 317 U/L (26-308) H Total Protein 6.8 G/DL (6.4-8.2) Albumin 3.7 G/DL (3.4-5.0) Globulin 3.1 g/dL Albumin/Globulin Ratio 1.2 (1.0-2.7) Height (Feet): 5 Height (Inches): 11.00 Weight (Pounds): 230 Medications Current Medications Medications (Trade) Dose Ordered Sig/Sofia Route PRN Reason Start Time Stop Time Status Last Admin Dose Admin Acetaminophen (Tylenol) 650 mg Q4H PRN ORAL T>100.5 04/07/18 15:45 05/07/18 15:44 Al Hydroxide/Mg Hydroxide (Mylanta II) 30 ml Q6H PRN ORAL dyspepsia 04/07/18 15:45 05/07/18 15:44 Dextrose (Dextrose 50%) 25 ml PRN IV Hypoglycemia 04/07/18 16:00 05/07/18 15:59 Dextrose (Dextrose 50%) 50 ml PRN IV hypoglycemia 04/07/18 16:00 05/07/18 15:59 Divalproex Sodium (Depakote) 250 mg Q12HR ORAL 04/07/18 21:00 05/07/18 20:59 Heparin Sodium (Porcine) (Heparin 5000 units/ml) 5,000 units EVERY 12 HOURS SUBQ 04/07/18 21:00 05/07/18 20:59 Insulin Aspart (NovoLOG) BEFORE MEALS AND HS SUBQ 04/07/18 17:00 05/07/18 16:59 Lorazepam (Ativan 2mg/ml 1ml) 0.5 mg Q4H PRN IV For Anxiety 04/07/18 16:00 04/14/18 15:59 Morphine Sulfate (Morphine Sulfate) 1 mg Q4H PRN IVP Severe Pain (Pain Scale 7-10) 04/07/18 15:45 04/14/18 15:44 04/07/18 17:15 Olanzapine (ZyPREXA) 2.5 mg DAILY ORAL 04/08/18 09:00 05/08/18 08:59 Ondansetron HCl (Zofran) 4 mg Q6H PRN IVP Nausea & Vomiting 04/07/18 15:45 05/07/18 15:44 Oxycodone/ Acetaminophen (Percocet 5-325) 1 tab Q4H PRN ORAL Moderate Pain (Pain Scale 4-6) 04/07/18 15:45 04/14/18 15:29 Polyethylene Glycol (Miralax) 17 gm HSPRN PRN ORAL Constipation 04/07/18 21:00 05/07/18 20:59 Pregabalin (Lyrica) 75 mg Q8HR ORAL 04/07/18 18:00 05/07/18 17:59 04/07/18 17:15 Quetiapine Fumarate (SEROquel) 300 mg BEDTIME ORAL 04/07/18 21:00 05/07/18 20:59 Theophylline (Bobby-Dur) 100 mg Q12HR ORAL 04/07/18 21:00 05/07/18 20:59 Trazodone HCl (Desyrel) 150 mg BEDTIME ORAL 04/07/18 21:00 05/07/18 20:59 Ziprasidone (Geodon) 20 mg DAILY ORAL 04/08/18 09:00 05/08/18 08:59 Zolpidem Tartrate (Ambien) 5 mg HSPRN PRN ORAL Insomnia 04/07/18 21:00 04/14/18 20:59 Assessment/Plan Assessment/Plan Abx: None Assessment: b/l Feet blisters (from extensive walking in likely component of diabetic neuropathy)- no signs of infection afebrile, no leukocytosis COPD DM HTN CVA/TIA back and neck surgery peripheral neuropathy psych hx homelessness Plan: -Continue to monitor off abx -wound care, pain control -podiatry eval -f/u cx -Monitor CBC/CMP, temperatures Thank you for this consultation. Will continue to follow along with you. Discussed with JAKE. Natalya Lopez M.D. Apr 07, 2018 19:44
[2018-04-07] MEDS: Heparin 5000 units/ml inj SUBQ SCH (20:48)
[2018-04-07] MEDS: TraZODone 50mg tab ORAL SCH (20:50)
[2018-04-07] MEDS: Theophylline ER 100mg ORAL SCH (20:50)
[2018-04-07 21:00] VITALS: BP 125/69
[2018-04-07] MEDS ORDERED: Zolpidem 5mg tab ORAL PRN (21:00)
[2018-04-07] MEDS ORDERED: Miralax 17gm pkt ORAL PRN (21:00)
[2018-04-08] VITALS: BP 109/65
[2018-04-08] MEDS: Morphine Sulfate 2mg/ml Inj IVP PRN ×5 (03:52→21:15)
[2018-04-08 04:00] VITALS: BP 104/65
[2018-04-08] MEDS: Lyrica 75mg cap ORAL SCH ×3 (05:45→22:18)
[2018-04-08] MEDS: NovoLOG Insulin Flexpen SUBQ SCH ×4 (05:46→21:21)
[2018-04-08 06:45] LABS: BASOPHILS % (AUTO) 1.1 % (0.0-2.0); EOSINOPHILS % (AUTO) 2.2 % (0.0-3.0); HEMATOCRIT 41.1 % (42.0-52.0); MEAN CORPUSCULAR VOLUME 86 FL (80-99); MONOCYTES % (AUTO) 8.9 % (1.0-10.0); NEUTROPHILS % (AUTO) 44.8 % (45.0-75.0); PLATELET COUNT 168 K/UL (150-450); RED BLOOD COUNT 4.79 M/UL (4.70-6.10); RED CELL DISTRIBUTION WIDTH 11.9 % (11.6-14.8); WHITE BLOOD COUNT 7.1 K/UL (4.8-10.8)
[2018-04-08 07:09] LABS: ALANINE AMINOTRANSFERASE 26 U/L (12-78); ALBUMIN 3.1 G/DL (3.4-5.0); ALBUMIN/GLOBULIN RATIO 1.1 (1.0-2.7); ALKALINE PHOSPHATASE 60 U/L (46-116); ANION GAP 8 mmol/L (5-15); ASPARTATE AMINO TRANSFERASE 15 U/L (15-37); BILIRUBIN,TOTAL 0.5 MG/DL (0.2-1.0); BLOOD UREA NITROGEN 19 mg/dL (7-18); CALCIUM 8.5 MG/DL (8.5-10.1); CARBON DIOXIDE 25 MMOL/L (21-32); CHLORIDE 107 MMOL/L (98-107); CHOLESTEROL 99 MG/DL (< 200); HDL CHOLESTEROL 30 MG/DL (40-60); POTASSIUM 4.1 MMOL/L (3.5-5.1); SODIUM 140 MMOL/L (136-145); TRIGLYCERIDES 97 MG/DL (30-150)
[2018-04-08 08:00] VITALS: BP 105/67
[2018-04-08] MEDS: Ziprasidone 20mg cap ORAL SCH (08:21)
[2018-04-08] MEDS: Theophylline ER 100mg ORAL SCH ×2 (08:21→21:02)
[2018-04-08] MEDS: OLANZapine 2.5mg tab ORAL SCH (08:22)
[2018-04-08] MEDS: Heparin 5000 units/ml inj SUBQ SCH ×2 (08:23→21:07)
[2018-04-08] MEDS: Albuterol/Ipratropium 3ml neb HHN PRN ×2 (10:13→13:43)
--- NOTE | 2018-04-08 11:16 | Consultation ---
Consult Note Assessment/Plan A/ 1) Blisters bilateral feet 2) Pain bilateral lower extremities neurpathic vs radiculopathy 3) Uncontrolled DM P/ 1) Cont wound care with adaptic. This is appropriate. No surgical intervention indicated 2) Patient has diffuse pain bilateral LE. Also complains of lower back pain. Recommend increase dose of Lyrica, but will leave it up to pain management to decide. Ordered lumbar spine films to evaluate lower back. 3) Will continue to follow. Thank you Tl Rowe DPM Apr 08, 2018 11:16
--- NOTE | 2018-04-08 11:50 | Infectious Diseases Prog Note ---
Assessment/Plan Assessment/Plan Abx: None Assessment: b/l Feet blisters (from extensive walking in likely component of diabetic neuropathy)- no signs of infection afebrile, no leukocytosis COPD DM HTN CVA/TIA back and neck surgery peripheral neuropathy psych hx homelessness Plan: -Continue to monitor off abx -wound care, pain control -podiatry f/u -f/u cx -Monitor CBC/CMP, temperatures Thank you for this consultation. Will continue to follow along with you. Discussed with RN. Subjective Allergies: Coded Allergies: No Known Allergies (Unverified , 02/06/15) Subjective afebrile no leukocytosis Objective Vital Signs Last 24 Hour Vital Signs Date Time Temp Pulse Resp B/P (MAP) Pulse Ox O2 Delivery O2 Flow Rate FiO2 04/08/18 10:22 75 20 98 Nasal Cannula 3.0 32 04/08/18 10:13 75 20 97 Nasal Cannula 3.0 32 04/08/18 10:13 32 04/08/18 10:13 75 20 Nasal Cannula 3.0 32 04/08/18 08:53 98.6 04/08/18 08:23 98.6 04/08/18 08:00 97.6 84 20 105/67 100 97.6 04/08/18 06:45 98.6 04/08/18 05:45 98.6 04/08/18 04:00 98.0 83 20 104/65 94 Room Air 98.0 04/08/18 03:52 98.6 04/08/18 00:00 98.6 86 20 109/65 99 Room Air 98.6 04/07/18 21:15 97.6 04/07/18 21:00 98.4 89 20 125/69 94 Room Air 98.4 04/07/18 21:00 94 Room Air 04/07/18 17:15 97.6 04/07/18 17:15 97.6 04/07/18 13:57 97.6 95 23 123/69 96 Room Air 97.5 04/07/18 11:49 97.5 89 25 118/77 95 Room Air 97.5 Height (Feet): 5 Height (Inches): 11.00 Weight (Pounds): 230 Objective GENERAL: Calm in bed, in the ER gurney, oriented x3, and in no acute distress. CARDIOVASCULAR: No murmurs. LUNGS: Distant and clear. ABDOMEN: Bowel sounds positive. Nontender. Nondistended. EXTREMITIES: No cyanosis, clubbing, or edema. Bottom of the sole with multiple 1 inch x 0.5 inch blister in the bottom of metatarsal bilaterally. no purulent discharge NEUROLOGIC: The patient moves all extremities. Slightly weak. Laboratory Tests Test 04/08/18 06:00 04/08/18 06:10 Hemoglobin A1c Pending White Blood Count 7.1 K/UL (4.8-10.8) Red Blood Count 4.79 M/UL (4.70-6.10) Hemoglobin 14.0 G/DL (14.2-18.0) L Hematocrit 41.1 % (42.0-52.0) L Mean Corpuscular Volume 86 FL (80-99) Mean Corpuscular Hemoglobin 29.2 PG (27.0-31.0) Mean Corpuscular Hemoglobin Concent 34.1 G/DL (32.0-36.0) Red Cell Distribution Width 11.9 % (11.6-14.8) Platelet Count 168 K/UL (150-450) Mean Platelet Volume 8.8 FL (6.5-10.1) Neutrophils (%) (Auto) 44.8 % (45.0-75.0) L Lymphocytes (%) (Auto) 43.0 % (20.0-45.0) Monocytes (%) (Auto) 8.9 % (1.0-10.0) Eosinophils (%) (Auto) 2.2 % (0.0-3.0) Basophils (%) (Auto) 1.1 % (0.0-2.0) Sodium Level 140 MMOL/L (136-145) Potassium Level 4.1 MMOL/L (3.5-5.1) Chloride Level 107 MMOL/L (98-107) Carbon Dioxide Level 25 MMOL/L (21-32) Anion Gap 8 mmol/L (5-15) Blood Urea Nitrogen 19 mg/dL (7-18) H Creatinine 1.0 MG/DL (0.55-1.30) Estimat Glomerular Filtration Rate > 60 mL/min (>60) Glucose Level 108 MG/DL (74-106) H Calcium Level 8.5 MG/DL (8.5-10.1) Total Bilirubin 0.5 MG/DL (0.2-1.0) Aspartate Amino Transf (AST/SGOT) 15 U/L (15-37) Alanine Aminotransferase (ALT/SGPT) 26 U/L (12-78) Alkaline Phosphatase 60 U/L (46-116) Total Protein 6.0 G/DL (6.4-8.2) L Albumin 3.1 G/DL (3.4-5.0) L Globulin 2.9 g/dL Albumin/Globulin Ratio 1.1 (1.0-2.7) Triglycerides Level 97 MG/DL (30-150) Cholesterol Level 99 MG/DL (< 200) LDL Cholesterol 66 mg/dL (<100) HDL Cholesterol 30 MG/DL (40-60) L Cholesterol/HDL Ratio 3.3 (3.3-4.4) Current Medications Medications (Trade) Dose Ordered Sig/Sofia Route PRN Reason Start Time Stop Time Status Last Admin Dose Admin Acetaminophen (Tylenol) 650 mg Q4H PRN ORAL T>100.5 04/07/18 15:45 05/07/18 15:44 Al Hydroxide/Mg Hydroxide (Mylanta II) 30 ml Q6H PRN ORAL dyspepsia 04/07/18 15:45 05/07/18 15:44 Albuterol/ Ipratropium (Albuterol/ Ipratropium) 3 ml Q4H PRN HHN Shortness of Breath 04/08/18 10:07 04/13/18 10:06 04/08/18 10:13 Dextrose (Dextrose 50%) 25 ml PRN IV Hypoglycemia 04/07/18 16:00 05/07/18 15:59 Dextrose (Dextrose 50%) 50 ml PRN IV hypoglycemia 04/07/18 16:00 05/07/18 15:59 Divalproex Sodium (Depakote) 250 mg Q12HR ORAL 04/07/18 21:00 05/07/18 20:59 04/08/18 08:21 Heparin Sodium (Porcine) (Heparin 5000 units/ml) 5,000 units EVERY 12 HOURS SUBQ 04/07/18 21:00 05/07/18 20:59 04/07/18 20:48 Insulin Aspart (NovoLOG) BEFORE MEALS AND HS SUBQ 04/07/18 17:00 05/07/18 16:59 04/08/18 05:46 Lorazepam (Ativan 2mg/ml 1ml) 0.5 mg Q4H PRN IV For Anxiety 04/07/18 16:00 04/14/18 15:59 Morphine Sulfate (Morphine Sulfate) 1 mg Q4H PRN IVP Severe Pain (Pain Scale 7-10) 04/07/18 15:45 04/14/18 15:44 04/08/18 08:23 Olanzapine (ZyPREXA) 2.5 mg DAILY ORAL 04/08/18 09:00 05/08/18 08:59 04/08/18 08:22 Ondansetron HCl (Zofran) 4 mg Q6H PRN IVP Nausea & Vomiting 04/07/18 15:45 05/07/18 15:44 Oxycodone/ Acetaminophen (Percocet 5-325) 1 tab Q4H PRN ORAL Moderate Pain (Pain Scale 4-6) 04/07/18 15:45 04/14/18 15:29 Polyethylene Glycol (Miralax) 17 gm HSPRN PRN ORAL Constipation 04/07/18 21:00 05/07/18 20:59 Pregabalin (Lyrica) 75 mg Q8HR ORAL 04/07/18 18:00 05/07/18 17:59 04/08/18 05:45 Quetiapine Fumarate (SEROquel) 300 mg BEDTIME ORAL 04/07/18 21:00 05/07/18 20:59 04/07/18 20:50 Theophylline (Bobby-Dur) 100 mg Q12HR ORAL 04/07/18 21:00 05/07/18 20:59 04/08/18 08:21 Trazodone HCl (Desyrel) 150 mg BEDTIME ORAL 04/07/18 21:00 05/07/18 20:59 04/07/18 20:50 Ziprasidone (Geodon) 20 mg DAILY ORAL 04/08/18 09:00 05/08/18 08:59 04/08/18 08:21 Zolpidem Tartrate (Ambien) 5 mg HSPRN PRN ORAL Insomnia 04/07/18 21:00 04/14/18 20:59 Natalya Lopez M.D. Apr 08, 2018 11:50
[2018-04-08 12:00] VITALS: BP 102/67
--- NOTE | 2018-04-08 14:03 | General Progress Note ---
Assessment/Plan Problem List: (1) Blister (nonthermal), unspecified foot, sequela ICD Codes: S90.829S - Blister (nonthermal), unspecified foot, sequela SNOMED: 503398628 (2) Weak ICD Codes: R53.1 - Weakness SNOMED: 66962320 (3) HTN (hypertension) ICD Codes: I10 - Essential (primary) hypertension SNOMED: 44044962 (4) CVA (cerebral vascular accident) ICD Codes: I63.9 - Cerebral infarction, unspecified SNOMED: 162620288 (5) Diabetes ICD Codes: E11.9 - Diabetes mellitus SNOMED: 51863725 (6) Generalized weakness ICD Codes: R53.1 - Weakness SNOMED: 36056126 Status: unchanged Assessment/Plan ot pt diet wound care abx cbc bmp am dc plan snf Subjective Constitutional: Reports: weakness Allergies: Coded Allergies: No Known Allergies (Unverified , 02/06/15) All Systems: reviewed and negative except above Subjective o2nc calm in bed Objective Last 24 Hour Vital Signs Date Time Temp Pulse Resp B/P (MAP) Pulse Ox O2 Delivery O2 Flow Rate FiO2 04/08/18 13:51 74 20 98 Nasal Cannula 3.0 32 04/08/18 13:43 73 18 98 Nasal Cannula 3.0 32 04/08/18 13:43 32 04/08/18 13:09 98.6 04/08/18 12:39 98.6 04/08/18 10:22 75 20 98 Nasal Cannula 3.0 32 04/08/18 10:13 75 20 97 Nasal Cannula 3.0 32 04/08/18 10:13 32 04/08/18 10:13 75 20 Nasal Cannula 3.0 32 04/08/18 08:23 98.6 04/08/18 08:00 97.6 84 20 105/67 100 97.6 04/08/18 06:45 98.6 04/08/18 05:45 98.6 04/08/18 04:00 98.0 83 20 104/65 94 Room Air 98.0 04/08/18 03:52 98.6 04/08/18 00:00 98.6 86 20 109/65 99 Room Air 98.6 04/07/18 21:15 97.6 04/07/18 21:00 98.4 89 20 125/69 94 Room Air 98.4 04/07/18 21:00 94 Room Air 04/07/18 17:15 97.6 04/07/18 17:15 97.6 Intake and Output 04/07/18 04/08/18 19:00 07:00 Intake Total 1150 ml Balance 1150 ml Intake Oral 150 ml IV Total 1000 ml # Voids 2 Laboratory Tests 04/08/18 06:00: Hemoglobin A1c 6.2H 04/08/18 06:10: White Blood Count 7.1, Red Blood Count 4.79, Hemoglobin 14.0L, Hematocrit 41.1L , Mean Corpuscular Volume 86, Mean Corpuscular Hemoglobin 29.2, Mean Corpuscular Hemoglobin Concent 34.1, Red Cell Distribution Width 11.9, Platelet Count 168, Mean Platelet Volume 8.8, Neutrophils (%) (Auto) 44.8L, Lymphocytes ( %) (Auto) 43.0, Monocytes (%) (Auto) 8.9, Eosinophils (%) (Auto) 2.2, Basophils (%) (Auto) 1.1, Sodium Level 140, Potassium Level 4.1, Chloride Level 107, Carbon Dioxide Level 25, Anion Gap 8, Blood Urea Nitrogen 19H, Creatinine 1.0, Estimat Glomerular Filtration Rate > 60, Glucose Level 108H, Calcium Level 8.5, Total Bilirubin 0.5, Aspartate Amino Transf (AST/SGOT) 15, Alanine Aminotransferase (ALT/SGPT) 26, Alkaline Phosphatase 60, Total Protein 6.0L, Albumin 3.1L, Globulin 2.9, Albumin/Globulin Ratio 1.1, Triglycerides Level 97, Cholesterol Level 99, LDL Cholesterol 66, HDL Cholesterol 30L, Cholesterol/HDL Ratio 3.3 Height (Feet): 5 Height (Inches): 11.00 Weight (Pounds): 230 General Appearance: alert EENT: normal ENT inspection Neck: normal alignment Cardiovascular: normal peripheral pulses, normal rate, regular rhythm Respiratory/Chest: chest wall non-tender, lungs clear, normal breath sounds Abdomen: normal bowel sounds, non tender, soft Extremities: normal inspection Edema: no edema noted Arm (L), no edema noted Arm (R), no edema noted Leg (L), no edema noted Leg (R), no edema noted Pedal (L), no edema noted Pedal (R), no edema noted Generalized Neurologic: responsive, motor weakness Skin: normal pigmentation, warm/dry Aniceto Sepulveda DO Apr 08, 2018 14:03
--- NOTE | 2018-04-08 14:31 | Pulmonology Progress Note ---
Assessment/Plan Problems: (1) COPD (chronic obstructive pulmonary disease) (2) Generalized weakness (3) HTN (hypertension) (4) CVA (cerebral vascular accident) Assessment/Plan respiratory treatment symptomatic treatment check electrolytes dvt prophylaxis Subjective ROS Limited/Unobtainable: No Allergies: Coded Allergies: No Known Allergies (Unverified , 02/06/15) Objective Last 24 Hour Vital Signs Date Time Temp Pulse Resp B/P (MAP) Pulse Ox O2 Delivery O2 Flow Rate FiO2 04/08/18 13:51 74 20 98 Nasal Cannula 3.0 32 04/08/18 13:43 73 18 98 Nasal Cannula 3.0 32 04/08/18 13:43 32 04/08/18 13:09 98.6 04/08/18 12:39 98.6 04/08/18 10:22 75 20 98 Nasal Cannula 3.0 32 04/08/18 10:13 75 20 97 Nasal Cannula 3.0 32 04/08/18 10:13 32 04/08/18 10:13 75 20 Nasal Cannula 3.0 32 04/08/18 08:23 98.6 04/08/18 08:00 97.6 84 20 105/67 100 97.6 04/08/18 06:45 98.6 04/08/18 05:45 98.6 04/08/18 04:00 98.0 83 20 104/65 94 Room Air 98.0 04/08/18 03:52 98.6 04/08/18 00:00 98.6 86 20 109/65 99 Room Air 98.6 04/07/18 21:15 97.6 04/07/18 21:00 98.4 89 20 125/69 94 Room Air 98.4 04/07/18 21:00 94 Room Air 04/07/18 17:15 97.6 04/07/18 17:15 97.6 Intake and Output 04/07/18 04/08/18 19:00 07:00 Intake Total 1150 ml Balance 1150 ml Intake Oral 150 ml IV Total 1000 ml # Voids 2 General Appearance: WD/WN HEENT: normocephalic Respiratory/Chest: chest wall non-tender, lungs clear Cardiovascular: normal peripheral pulses, normal rate Abdomen: normal bowel sounds, no organomegaly Genitourinary: normal external genitalia Neurologic/Psychiatric: inter com installer II-XII grossly normal, no motor/sensory deficits Laboratory Tests 04/08/18 06:00: Hemoglobin A1c 6.2H 04/08/18 06:10: White Blood Count 7.1, Red Blood Count 4.79, Hemoglobin 14.0L, Hematocrit 41.1L , Mean Corpuscular Volume 86, Mean Corpuscular Hemoglobin 29.2, Mean Corpuscular Hemoglobin Concent 34.1, Red Cell Distribution Width 11.9, Platelet Count 168, Mean Platelet Volume 8.8, Neutrophils (%) (Auto) 44.8L, Lymphocytes ( %) (Auto) 43.0, Monocytes (%) (Auto) 8.9, Eosinophils (%) (Auto) 2.2, Basophils (%) (Auto) 1.1, Sodium Level 140, Potassium Level 4.1, Chloride Level 107, Carbon Dioxide Level 25, Anion Gap 8, Blood Urea Nitrogen 19H, Creatinine 1.0, Estimat Glomerular Filtration Rate > 60, Glucose Level 108H, Calcium Level 8.5, Total Bilirubin 0.5, Aspartate Amino Transf (AST/SGOT) 15, Alanine Aminotransferase (ALT/SGPT) 26, Alkaline Phosphatase 60, Total Protein 6.0L, Albumin 3.1L, Globulin 2.9, Albumin/Globulin Ratio 1.1, Triglycerides Level 97, Cholesterol Level 99, LDL Cholesterol 66, HDL Cholesterol 30L, Cholesterol/HDL Ratio 3.3 Current Medications Medications (Trade) Dose Ordered Sig/Sofia Route PRN Reason Start Time Stop Time Status Last Admin Dose Admin Acetaminophen (Tylenol) 650 mg Q4H PRN ORAL T>100.5 04/07/18 15:45 05/07/18 15:44 Al Hydroxide/Mg Hydroxide (Mylanta II) 30 ml Q6H PRN ORAL dyspepsia 04/07/18 15:45 05/07/18 15:44 Albuterol/ Ipratropium (Albuterol/ Ipratropium) 3 ml Q4H PRN HHN Shortness of Breath 04/08/18 10:07 04/13/18 10:06 04/08/18 13:43 Dextrose (Dextrose 50%) 25 ml PRN IV Hypoglycemia 04/07/18 16:00 05/07/18 15:59 Dextrose (Dextrose 50%) 50 ml PRN IV hypoglycemia 04/07/18 16:00 05/07/18 15:59 Divalproex Sodium (Depakote) 250 mg Q12HR ORAL 04/07/18 21:00 05/07/18 20:59 04/08/18 08:21 Heparin Sodium (Porcine) (Heparin 5000 units/ml) 5,000 units EVERY 12 HOURS SUBQ 04/07/18 21:00 05/07/18 20:59 04/07/18 20:48 Insulin Aspart (NovoLOG) BEFORE MEALS AND HS SUBQ 04/07/18 17:00 05/07/18 16:59 04/08/18 05:46 Lorazepam (Ativan 2mg/ml 1ml) 0.5 mg Q4H PRN IV For Anxiety 04/07/18 16:00 04/14/18 15:59 Morphine Sulfate (Morphine Sulfate) 1 mg Q4H PRN IVP Severe Pain (Pain Scale 7-10) 04/07/18 15:45 04/14/18 15:44 04/08/18 12:39 Olanzapine (ZyPREXA) 2.5 mg DAILY ORAL 04/08/18 09:00 05/08/18 08:59 04/08/18 08:22 Ondansetron HCl (Zofran) 4 mg Q6H PRN IVP Nausea & Vomiting 04/07/18 15:45 05/07/18 15:44 Oxycodone/ Acetaminophen (Percocet 5-325) 1 tab Q4H PRN ORAL Moderate Pain (Pain Scale 4-6) 04/07/18 15:45 04/14/18 15:29 Polyethylene Glycol (Miralax) 17 gm HSPRN PRN ORAL Constipation 04/07/18 21:00 05/07/18 20:59 Pregabalin (Lyrica) 75 mg Q8HR ORAL 04/07/18 18:00 05/07/18 17:59 04/08/18 05:45 Quetiapine Fumarate (SEROquel) 300 mg BEDTIME ORAL 04/07/18 21:00 05/07/18 20:59 04/07/18 20:50 Theophylline (Bobby-Dur) 100 mg Q12HR ORAL 04/07/18 21:00 05/07/18 20:59 04/08/18 08:21 Trazodone HCl (Desyrel) 150 mg BEDTIME ORAL 04/07/18 21:00 05/07/18 20:59 04/07/18 20:50 Ziprasidone (Geodon) 20 mg DAILY ORAL 04/08/18 09:00 05/08/18 08:59 04/08/18 08:21 Zolpidem Tartrate (Ambien) 5 mg HSPRN PRN ORAL Insomnia 04/07/18 21:00 04/14/18 20:59 Lashanda Pham MD Apr 08, 2018 14:31
--- NOTE | 2018-04-08 14:39 | Diagnostic Imaging Report ---
Indication: Cough, shortness of breath Technique: One view of the chest Comparison: 01/27/2018 Findings: Lungs and pleural spaces are clear. Heart size is normal. No significant interim change Impression: No acute process
[2018-04-08 16:22] VITALS: BP 119/75
--- NOTE | 2018-04-08 17:10 | Diagnostic Imaging Report ---
Indication: Back pain Technique: 4 views of the lumbar spine Comparison: 06/22/2016 Findings: Bony alignment is normal. Vertebral body heights are preserved. Disc spaces are preserved. There is segmentation anomaly with a transitional lumbosacral segment. No significant interim change Impression: No acute process
--- NOTE | 2018-04-08 17:15 | Consultation ---
DATE OF CONSULTATION: 04/08/2018 REQUESTING PHYSICIAN: Aniceto Sepulveda D.O. CONSULTING PHYSICIAN: Tl Trimble D.P.M. REASON FOR CONSULTATION: Blisters bilateral feet in the presence of diabetes mellitus. HISTORY OF PRESENT ILLNESS: The patient is a 37-year-old male who was admitted to [facility] on 04/07/2018 for possible diabetic foot infection, blistering. The patient states that he has been walking with shoes on for long periods of time and has developed blisters on the bottom of both feet that are painful. The patient states that he prior to having blisters had lower extremity pain extending from his lower back all the way down to his feet with his right being worse than his left and the pain is diffuse. Also, states that he uses his friend's glucometer to assess his blood sugars in order to give himself his insulin. PAST MEDICAL HISTORY: Significant for diabetes, hypertension, and cerebrovascular accident. PAST SURGICAL HISTORY: Significant for back and neck surgeries. MEDICATIONS: Per MAR and include Lyrica and morphine. SOCIAL HISTORY: The patient lives with roommates and friends. Positive for smoking. FAMILY HISTORY: Noncontributory. REVIEW OF SYSTEMS: HEENT: The patient denies any headaches, blurred vision, or ringing in the ears. CARDIOVASCULAR: The patient denies any chest pain or shortness of breath. GENITOURINARY: The patient denies any urgency, frequency, burning upon urination, or hematuria. GASTROINTESTINAL: The patient denies any constipation, diarrhea or blood in stool. PHYSICAL EXAMINATION: VITAL SIGNS: Temperature is 98.6 degrees, pulse is 75, respirations 20, and saturating 98% on room air. EXTREMITIES: Lower extremity physical exam, vascular, palpable pedal pulses noted bilaterally. Feet are equally warm. There is no edema or cyanosis noted. DERMATOLOGICAL: There is superficial blistering noted on the plantar aspect of both feet at the plantar to the second and third metatarsophalangeal joints bilaterally. No periwound erythema is noted. No drainage is noted. Area is tender to palpation. No malodor is noted from the site. MUSCULOSKELETAL: He has 4/5 muscle strength noted on anterior lateral and posterior muscle groups of bilateral lower extremities. No gross deformities are noted. NEUROLOGIC: The patient has paresthesias. LABORATORY AND DIAGNOSTIC DATA: White blood cell count is 7.1 and has been normal since admission, hemoglobin and hematocrit are 14.0 and 41.1 and platelet count is 168. Creatinine is 1.0, BUN is 19, glucose is 108, potassium is 4.1, and sodium is 140. Lactic acid is 1.40. Albumin is 3.1. No imaging is noted on this admission. ASSESSMENT: 1. Blisters, bilateral feet. 2. Pain in bilateral lower extremities, neuropathic versus radiculopathy. 3. Uncontrolled diabetes mellitus. PLAN: 1. Continue wound care with Adaptic on bilateral blisters, this is appropriate for this type of injury. No surgical intervention is indicated at this time. 2. The patient has diffuse pain in bilateral lower extremities. He also complains of lower back pain. Recommended increased dose of Lyrica, but I will leave it up for pain management to make that determination. Ordered a set of lumbar spine films to evaluate lower back. 3. Hemoglobin A1c was ordered. 4. We will follow. Thank you for the courtesy of this consultation. Tl Trimble D.P.M. DR: TEREZA JOB#: [id number] CC:
[2018-04-08 20:00] VITALS: BP 133/80
[2018-04-08] MEDS: TraZODone 50mg tab ORAL SCH (21:08)
[2018-04-09 04:00] VITALS: BP 119/70
[2018-04-09] MEDS: Lyrica 75mg cap ORAL SCH ×3 (06:21→22:16)
[2018-04-09] MEDS: Morphine Sulfate 2mg/ml Inj IVP PRN ×5 (06:21→22:50)
[2018-04-09] MEDS: NovoLOG Insulin Flexpen SUBQ SCH ×4 (06:30→20:49)
[2018-04-09] MEDS: Ziprasidone 20mg cap ORAL SCH (08:02)
[2018-04-09] MEDS: Theophylline ER 100mg ORAL SCH ×2 (08:02→20:45)
[2018-04-09] MEDS: Heparin 5000 units/ml inj SUBQ SCH ×2 (08:03→20:45)
[2018-04-09] MEDS: OLANZapine 2.5mg tab ORAL SCH (08:03)
--- NOTE | 2018-04-09 09:41 | General Progress Note ---
Assessment/Plan Assessment/Plan (1) Chiari malformation type II (2) Degenerative disc disease, cervical (3) Lumbar degenerative disc disease (4) Arthritis, lumbar spine (5) Peripheral neuropathy (6) Hydrocephalus (7) Diabetes mellitus Pt will be continued on Morphine and percocet. Pt was d/w Dr. Napier and he concurred. Subjective Date patient seen: Apr 09, 2018 Time patient seen: 08:45 - am Allergies: Coded Allergies: No Known Allergies (Unverified , 02/06/15) Subjective Constitutional: Reports: weakness, Denies: chills, diaphoresis, fever, malaise , no symptoms, other HEENT: Denies: blurred vision, double vision, ear discharge, ear pain, eye pain , mouth pain, mouth swelling, no symptoms, nose congestion, nose pain, other, tearing, throat pain, throat swelling Cardiovascular: Denies: chest pain, edema, irregular heart rate, lightheadedness, no symptoms, other, palpitations, syncope Respiratory: Denies: SOB at rest, SOB with excertion, cough, no symptoms, orthopnea, other, shortness of breath, sputum, stridor, wheezing Gastrointestinal/Abdominal: Denies: abdomen distended, abdominal pain, black stools, blood in stool, constipated, diarrhea, difficulty swallowing, nausea, no symptoms, other, poor appetite, poor fluid intake, rectal bleeding, tarry stools, vomiting Genitourinary: Denies: burning, discharge, flank pain, frequency, hematuria, incontinence, no symptoms, other, pain, urgency Neurologic/Psychiatric: Reports: headache, numbness, tingling, weakness, Denies : anxiety, depressed, emotional problems, no symptoms, other, paresthesia, pre- existing deficit, seizure, tremors Endocrine: Denies: excessive sweating, flushing, increased hunger, increased thirst, increased urine, intolerance to cold, intolerance to heat, no symptoms, other, unexplained weight gain, unexplained weight loss Hematologic/Lymphatic: Denies: anemia, easy bleeding, easy bruising, no symptoms, other Subjective Pt is a known patient admitted under the care of Dr. Sepulveda. He is in bed and showing no signs of pain. started on Morphine 1mg IV Q4H PRN severe pain and Percocet 5/325mg PO 1 tab Q4H PRN mod pain. Objective Last 24 Hour Vital Signs Date Time Temp Pulse Resp B/P (MAP) Pulse Ox O2 Delivery O2 Flow Rate FiO2 04/09/18 04:00 97.7 89 19 119/70 95 Room Air 97.7 04/08/18 20:07 98 Nasal Cannula 2.0 28 04/08/18 20:07 Nasal Cannula 2.0 28 04/08/18 20:07 83 20 Nasal Cannula 2.0 28 04/08/18 20:00 98.7 94 19 133/80 95 Room Air 98.7 04/08/18 17:12 98.2 04/08/18 16:42 98.2 04/08/18 16:22 98.2 94 20 119/75 98 Nasal Cannula 2.0 98.2 04/08/18 16:12 98.2 04/08/18 15:13 98.6 04/08/18 13:51 74 20 98 Nasal Cannula 3.0 32 04/08/18 13:43 73 18 98 Nasal Cannula 3.0 32 04/08/18 13:43 32 04/08/18 12:39 98.6 04/08/18 12:00 98.0 85 20 102/67 97 Nasal Cannula 2.0 98.0 04/08/18 10:22 75 20 98 Nasal Cannula 3.0 32 04/08/18 10:13 75 20 97 Nasal Cannula 3.0 32 04/08/18 10:13 32 04/08/18 10:13 75 20 Nasal Cannula 3.0 32 Intake and Output 04/08/18 04/09/18 19:00 07:00 Intake Total 1645 ml 2000 ml Balance 1645 ml 2000 ml Intake Oral 1645 ml 2000 ml # Voids 6 1 Height (Feet): 5 Height (Inches): 11.00 Weight (Pounds): 230 Objective General Appearance: no apparent distress, alert EENT: normal ENT inspection, TMs normal Neck: supple, limited range of motion, muscle spasm Cardiovascular: normal rate, regular rhythm Respiratory/Chest: decreased breath sounds Abdomen: non tender, soft Extremities: non-tender Edema: no edema noted Arm (L), no edema noted Arm (R), no edema noted Leg (L), no edema noted Leg (R), no edema noted Pedal (L), no edema noted Pedal (R), no edema noted Generalized Neurologic: alert, oriented x 3 Skin: warm/dry Joao Munoz Apr 09, 2018 09:41
[2018-04-09 09:52] LABS: BASOPHILS % (AUTO) 0.8 % (0.0-2.0); EOSINOPHILS % (AUTO) 1.8 % (0.0-3.0); HEMOGLOBIN 14.1 G/DL (14.2-18.0); LYMPHOCYTES % (AUTO) 32.3 % (20.0-45.0); MEAN CORPUSCULAR VOLUME 85 FL (80-99); MONOCYTES % (AUTO) 7.4 % (1.0-10.0); NEUTROPHILS % (AUTO) 57.7 % (45.0-75.0); PLATELET COUNT 184 K/UL (150-450); RED BLOOD COUNT 4.95 M/UL (4.70-6.10); RED CELL DISTRIBUTION WIDTH 11.7 % (11.6-14.8); WHITE BLOOD COUNT 7.5 K/UL (4.8-10.8)
[2018-04-09 10:11] LABS: PHOSPHORUS 3.7 MG/DL (2.5-4.9)
[2018-04-09 10:14] LABS: ALANINE AMINOTRANSFERASE 24 U/L (12-78); ALBUMIN 3.1 G/DL (3.4-5.0); ALKALINE PHOSPHATASE 56 U/L (46-116); ANION GAP 10 mmol/L (5-15); ASPARTATE AMINO TRANSFERASE 12 U/L (15-37); BILIRUBIN,TOTAL 0.3 MG/DL (0.2-1.0); BLOOD UREA NITROGEN 15 mg/dL (7-18); CALCIUM 8.6 MG/DL (8.5-10.1); CARBON DIOXIDE 25 MMOL/L (21-32); CHLORIDE 105 MMOL/L (98-107); POTASSIUM 3.7 MMOL/L (3.5-5.1); SODIUM 140 MMOL/L (136-145)
--- NOTE | 2018-04-09 10:48 | General Progress Note ---
Assessment/Plan Problem List: (1) Blister (nonthermal), unspecified foot, sequela ICD Codes: S90.829S - Blister (nonthermal), unspecified foot, sequela SNOMED: 409507589 (2) Weak ICD Codes: R53.1 - Weakness SNOMED: 62382492 (3) HTN (hypertension) ICD Codes: I10 - Essential (primary) hypertension SNOMED: 74333927 (4) CVA (cerebral vascular accident) ICD Codes: I63.9 - Cerebral infarction, unspecified SNOMED: 784673475 (5) Diabetes ICD Codes: E11.9 - Diabetes mellitus SNOMED: 00454522 (6) Generalized weakness ICD Codes: R53.1 - Weakness SNOMED: 82035535 Status: stable, progressing Assessment/Plan ot pt diet wound care abx cbc bmp am dc to snf if clear Subjective Constitutional: Reports: weakness Allergies: Coded Allergies: No Known Allergies (Unverified , 02/06/15) Subjective calm in bed Objective Last 24 Hour Vital Signs Date Time Temp Pulse Resp B/P (MAP) Pulse Ox O2 Delivery O2 Flow Rate FiO2 04/09/18 10:28 97.7 04/09/18 04:00 97.7 89 19 119/70 95 Room Air 97.7 04/08/18 20:07 98 Nasal Cannula 2.0 28 04/08/18 20:07 Nasal Cannula 2.0 28 04/08/18 20:07 83 20 Nasal Cannula 2.0 28 04/08/18 20:00 98.7 94 19 133/80 95 Room Air 98.7 04/08/18 17:12 98.2 04/08/18 16:42 98.2 04/08/18 16:22 98.2 94 20 119/75 98 Nasal Cannula 2.0 98.2 04/08/18 16:12 98.2 04/08/18 15:13 98.6 04/08/18 13:51 74 20 98 Nasal Cannula 3.0 32 04/08/18 13:43 73 18 98 Nasal Cannula 3.0 32 04/08/18 13:43 32 04/08/18 12:39 98.6 04/08/18 12:00 98.0 85 20 102/67 97 Nasal Cannula 2.0 98.0 Intake and Output 04/08/18 04/09/18 19:00 07:00 Intake Total 1645 ml 2000 ml Balance 1645 ml 2000 ml Intake Oral 1645 ml 2000 ml # Voids 6 1 Laboratory Tests 04/09/18 09:15: White Blood Count 7.5, Red Blood Count 4.95, Hemoglobin 14.1L, Hematocrit 42.0, Mean Corpuscular Volume 85, Mean Corpuscular Hemoglobin 28.5, Mean Corpuscular Hemoglobin Concent 33.6, Red Cell Distribution Width 11.7, Platelet Count 184, Mean Platelet Volume 8.5, Neutrophils (%) (Auto) 57.7, Lymphocytes (%) (Auto) 32.3, Monocytes (%) (Auto) 7.4, Eosinophils (%) (Auto) 1.8, Basophils (%) (Auto ) 0.8, Sodium Level 140, Potassium Level 3.7, Chloride Level 105, Carbon Dioxide Level 25, Anion Gap 10, Blood Urea Nitrogen 15, Creatinine 1.0, Estimat Glomerular Filtration Rate > 60, Glucose Level 165H, Calcium Level 8.6, Phosphorus Level 3.7, Magnesium Level 1.6L, Total Bilirubin 0.3, Aspartate Amino Transf (AST/SGOT) 12L, Alanine Aminotransferase (ALT/SGPT) 24, Alkaline Phosphatase 56, Total Protein 6.1L, Albumin 3.1L, Globulin 3.0, Albumin/ Globulin Ratio 1.0 Height (Feet): 5 Height (Inches): 11.00 Weight (Pounds): 230 General Appearance: alert EENT: normal ENT inspection Neck: normal alignment Cardiovascular: normal peripheral pulses, normal rate, regular rhythm Respiratory/Chest: chest wall non-tender, lungs clear, normal breath sounds Abdomen: normal bowel sounds, non tender, soft Extremities: normal inspection Edema: no edema noted Arm (L), no edema noted Arm (R), no edema noted Leg (L), no edema noted Leg (R), no edema noted Pedal (L), no edema noted Pedal (R), no edema noted Generalized Neurologic: responsive, motor weakness Skin: normal pigmentation, warm/dry Aniceto Sepulveda DO Apr 09, 2018 10:48
[2018-04-09 11:25] VITALS: BP 110/70
[2018-04-09] MEDS ORDERED: ACETAMINOPHEN325 M1 ORAL (11:44)
[2018-04-09] MEDS ORDERED: ZYPREXA2.5 MG ORAL (12:26)
[2018-04-09] MEDS ORDERED: OXYCODONE-ACET1 EAC3 ORAL (12:29)
--- NOTE | 2018-04-09 15:36 | Pulmonology Progress Note ---
Assessment/Plan Problems: (1) COPD (chronic obstructive pulmonary disease) (2) CVA (cerebral vascular accident) (3) HTN (hypertension) (4) Diabetes Assessment/Plan respiratory treatment symptomatic treatment check electrolytes dvt prophylaxis Subjective ROS Limited/Unobtainable: No Constitutional: Reports: no symptoms HEENT: Repors: no symptoms Respiratory: Reports: no symptoms Allergies: Coded Allergies: No Known Allergies (Unverified , 02/06/15) Objective Last 24 Hour Vital Signs Date Time Temp Pulse Resp B/P (MAP) Pulse Ox O2 Delivery O2 Flow Rate FiO2 04/09/18 15:01 98.6 04/09/18 14:31 98.6 04/09/18 14:29 98.6 04/09/18 13:30 98.6 04/09/18 11:25 98.6 85 20 110/70 96 98.6 04/09/18 10:28 97.7 04/09/18 08:33 Room Air 04/09/18 08:32 94 Room Air 04/09/18 08:31 76 16 Room Air 04/09/18 04:00 97.7 89 19 119/70 95 Room Air 97.7 04/08/18 20:07 98 Nasal Cannula 2.0 28 04/08/18 20:07 Nasal Cannula 2.0 28 04/08/18 20:07 83 20 Nasal Cannula 2.0 28 04/08/18 20:00 98.7 94 19 133/80 95 Room Air 98.7 04/08/18 16:42 98.2 04/08/18 16:22 98.2 94 20 119/75 98 Nasal Cannula 2.0 98.2 Intake and Output 04/08/18 04/09/18 19:00 07:00 Intake Total 1645 ml 2000 ml Balance 1645 ml 2000 ml Intake Oral 1645 ml 2000 ml # Voids 6 1 General Appearance: WD/WN HEENT: normocephalic, atraumatic Respiratory/Chest: chest wall non-tender, lungs clear Cardiovascular: normal peripheral pulses, normal rate Genitourinary: normal external genitalia Extremities: no cyanosis 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 Laboratory Tests 04/09/18 09:15: White Blood Count 7.5, Red Blood Count 4.95, Hemoglobin 14.1L, Hematocrit 42.0, Mean Corpuscular Volume 85, Mean Corpuscular Hemoglobin 28.5, Mean Corpuscular Hemoglobin Concent 33.6, Red Cell Distribution Width 11.7, Platelet Count 184, Mean Platelet Volume 8.5, Neutrophils (%) (Auto) 57.7, Lymphocytes (%) (Auto) 32.3, Monocytes (%) (Auto) 7.4, Eosinophils (%) (Auto) 1.8, Basophils (%) (Auto ) 0.8, Sodium Level 140, Potassium Level 3.7, Chloride Level 105, Carbon Dioxide Level 25, Anion Gap 10, Blood Urea Nitrogen 15, Creatinine 1.0, Estimat Glomerular Filtration Rate > 60, Glucose Level 165H, Calcium Level 8.6, Phosphorus Level 3.7, Magnesium Level 1.6L, Total Bilirubin 0.3, Aspartate Amino Transf (AST/SGOT) 12L, Alanine Aminotransferase (ALT/SGPT) 24, Alkaline Phosphatase 56, Total Protein 6.1L, Albumin 3.1L, Globulin 3.0, Albumin/ Globulin Ratio 1.0 Current Medications Medications (Trade) Dose Ordered Sig/Sofia Route PRN Reason Start Time Stop Time Status Last Admin Dose Admin Acetaminophen (Tylenol) 650 mg Q4H PRN ORAL T>100.5 04/07/18 15:45 05/07/18 15:44 Al Hydroxide/Mg Hydroxide (Mylanta II) 30 ml Q6H PRN ORAL dyspepsia 04/07/18 15:45 05/07/18 15:44 Albuterol/ Ipratropium (Albuterol/ Ipratropium) 3 ml Q4H PRN HHN Shortness of Breath 04/08/18 10:07 04/13/18 10:06 04/08/18 13:43 Dextrose (Dextrose 50%) 25 ml PRN IV Hypoglycemia 04/07/18 16:00 05/07/18 15:59 Dextrose (Dextrose 50%) 50 ml PRN IV hypoglycemia 04/07/18 16:00 05/07/18 15:59 Divalproex Sodium (Depakote) 250 mg Q12HR ORAL 04/07/18 21:00 05/07/18 20:59 04/09/18 08:03 Heparin Sodium (Porcine) (Heparin 5000 units/ml) 5,000 units EVERY 12 HOURS SUBQ 04/07/18 21:00 05/07/18 20:59 04/08/18 21:07 Insulin Aspart (NovoLOG) BEFORE MEALS AND HS SUBQ 04/07/18 17:00 05/07/18 16:59 04/09/18 12:12 Lorazepam (Ativan 2mg/ml 1ml) 0.5 mg Q4H PRN IV For Anxiety 04/07/18 16:00 04/14/18 15:59 Morphine Sulfate (Morphine Sulfate) 1 mg Q4H PRN IVP Severe Pain (Pain Scale 7-10) 04/07/18 15:45 04/14/18 15:44 04/09/18 14:31 Olanzapine (ZyPREXA) 2.5 mg DAILY ORAL 04/08/18 09:00 05/08/18 08:59 04/09/18 08:03 Ondansetron HCl (Zofran) 4 mg Q6H PRN IVP Nausea & Vomiting 04/07/18 15:45 05/07/18 15:44 Oxycodone/ Acetaminophen (Percocet 5-325) 1 tab Q4H PRN ORAL Moderate Pain (Pain Scale 4-6) 04/07/18 15:45 04/14/18 15:29 Polyethylene Glycol (Miralax) 17 gm HSPRN PRN ORAL Constipation 04/07/18 21:00 05/07/18 20:59 Pregabalin (Lyrica) 75 mg Q8HR ORAL 04/07/18 18:00 05/07/18 17:59 04/09/18 13:30 Quetiapine Fumarate (SEROquel) 300 mg BEDTIME ORAL 04/07/18 21:00 05/07/18 20:59 04/08/18 21:02 Theophylline (Bobby-Dur) 100 mg Q12HR ORAL 04/07/18 21:00 05/07/18 20:59 04/09/18 08:02 Trazodone HCl (Desyrel) 150 mg BEDTIME ORAL 04/07/18 21:00 05/07/18 20:59 04/08/18 21:08 Ziprasidone (Geodon) 20 mg DAILY ORAL 04/08/18 09:00 05/08/18 08:59 04/09/18 08:02 Zolpidem Tartrate (Ambien) 5 mg HSPRN PRN ORAL Insomnia 04/07/18 21:00 04/14/18 20:59 Lashanda Pham MD Apr 09, 2018 15:36
[2018-04-09 16:00] VITALS: BP 115/72
[2018-04-09 20:00] VITALS: BP 117/71
[2018-04-09] MEDS: TraZODone 50mg tab ORAL SCH (20:44)
--- NOTE | 2018-04-09 21:00 | Infectious Diseases Prog Note ---
Assessment/Plan Assessment/Plan Abx: None Assessment: b/l Feet blisters (from extensive walking in likely component of diabetic neuropathy)- no signs of infection afebrile, no leukocytosis COPD DM HTN CVA/TIA back and neck surgery peripheral neuropathy psych hx homelessness Plan: -Continue to monitor off abx; ok go discharge from ID perspective -wound care, pain control -podiatry f/u -f/u cx -Monitor CBC/CMP, temperatures Thank you for this consultation. Will continue to follow along with you. Discussed with RN. Subjective Allergies: Coded Allergies: No Known Allergies (Unverified , 02/06/15) Subjective afebrile no leukocytosis Objective Vital Signs Last 24 Hour Vital Signs Date Time Temp Pulse Resp B/P (MAP) Pulse Ox O2 Delivery O2 Flow Rate FiO2 04/09/18 18:49 98.2 04/09/18 16:00 98.2 83 20 115/72 98 98.2 04/09/18 15:01 98.6 04/09/18 14:31 98.6 04/09/18 14:29 98.6 04/09/18 13:30 98.6 04/09/18 11:25 98.6 85 20 110/70 96 98.6 04/09/18 10:28 97.7 04/09/18 08:33 Room Air 04/09/18 08:32 94 Room Air 04/09/18 08:31 76 16 Room Air 04/09/18 04:00 97.7 89 19 119/70 95 Room Air 97.7 Height (Feet): 5 Height (Inches): 11.00 Weight (Pounds): 230 Objective GENERAL: Calm in bed, in the ER gurney, oriented x3, and in no acute distress. CARDIOVASCULAR: No murmurs. LUNGS: Distant and clear. ABDOMEN: Bowel sounds positive. Nontender. Nondistended. EXTREMITIES: No cyanosis, clubbing, or edema. Bottom of the sole with multiple 1 inch x 0.5 inch blister in the bottom of metatarsal bilaterally. no purulent discharge NEUROLOGIC: The patient moves all extremities. Slightly weak. Laboratory Tests Test 04/09/18 09:15 White Blood Count 7.5 K/UL (4.8-10.8) Red Blood Count 4.95 M/UL (4.70-6.10) Hemoglobin 14.1 G/DL (14.2-18.0) L Hematocrit 42.0 % (42.0-52.0) Mean Corpuscular Volume 85 FL (80-99) Mean Corpuscular Hemoglobin 28.5 PG (27.0-31.0) Mean Corpuscular Hemoglobin Concent 33.6 G/DL (32.0-36.0) Red Cell Distribution Width 11.7 % (11.6-14.8) Platelet Count 184 K/UL (150-450) Mean Platelet Volume 8.5 FL (6.5-10.1) Neutrophils (%) (Auto) 57.7 % (45.0-75.0) Lymphocytes (%) (Auto) 32.3 % (20.0-45.0) Monocytes (%) (Auto) 7.4 % (1.0-10.0) Eosinophils (%) (Auto) 1.8 % (0.0-3.0) Basophils (%) (Auto) 0.8 % (0.0-2.0) Sodium Level 140 MMOL/L (136-145) Potassium Level 3.7 MMOL/L (3.5-5.1) Chloride Level 105 MMOL/L (98-107) Carbon Dioxide Level 25 MMOL/L (21-32) Anion Gap 10 mmol/L (5-15) Blood Urea Nitrogen 15 mg/dL (7-18) Creatinine 1.0 MG/DL (0.55-1.30) Estimat Glomerular Filtration Rate > 60 mL/min (>60) Glucose Level 165 MG/DL (74-106) H Calcium Level 8.6 MG/DL (8.5-10.1) Phosphorus Level 3.7 MG/DL (2.5-4.9) Magnesium Level 1.6 MG/DL (1.8-2.4) L Total Bilirubin 0.3 MG/DL (0.2-1.0) Aspartate Amino Transf (AST/SGOT) 12 U/L (15-37) L Alanine Aminotransferase (ALT/SGPT) 24 U/L (12-78) Alkaline Phosphatase 56 U/L (46-116) Total Protein 6.1 G/DL (6.4-8.2) L Albumin 3.1 G/DL (3.4-5.0) L Globulin 3.0 g/dL Albumin/Globulin Ratio 1.0 (1.0-2.7) Current Medications Medications (Trade) Dose Ordered Sig/Sofia Route PRN Reason Start Time Stop Time Status Last Admin Dose Admin Acetaminophen (Tylenol) 650 mg Q4H PRN ORAL T>100.5 04/07/18 15:45 05/07/18 15:44 Al Hydroxide/Mg Hydroxide (Mylanta II) 30 ml Q6H PRN ORAL dyspepsia 04/07/18 15:45 05/07/18 15:44 Albuterol/ Ipratropium (Albuterol/ Ipratropium) 3 ml Q4H PRN HHN Shortness of Breath 04/08/18 10:07 04/13/18 10:06 04/08/18 13:43 Dextrose (Dextrose 50%) 25 ml PRN IV Hypoglycemia 04/07/18 16:00 05/07/18 15:59 Dextrose (Dextrose 50%) 50 ml PRN IV hypoglycemia 04/07/18 16:00 05/07/18 15:59 Divalproex Sodium (Depakote) 250 mg Q12HR ORAL 04/07/18 21:00 05/07/18 20:59 04/09/18 20:44 Heparin Sodium (Porcine) (Heparin 5000 units/ml) 5,000 units EVERY 12 HOURS SUBQ 04/07/18 21:00 05/07/18 20:59 04/08/18 21:07 Insulin Aspart (NovoLOG) BEFORE MEALS AND HS SUBQ 04/07/18 17:00 05/07/18 16:59 04/09/18 20:49 Lorazepam (Ativan 2mg/ml 1ml) 0.5 mg Q4H PRN IV For Anxiety 04/07/18 16:00 04/14/18 15:59 Morphine Sulfate (Morphine Sulfate) 1 mg Q4H PRN IVP Severe Pain (Pain Scale 7-10) 04/07/18 15:45 04/14/18 15:44 04/09/18 18:49 Olanzapine (ZyPREXA) 2.5 mg DAILY ORAL 04/08/18 09:00 05/08/18 08:59 04/09/18 08:03 Ondansetron HCl (Zofran) 4 mg Q6H PRN IVP Nausea & Vomiting 04/07/18 15:45 05/07/18 15:44 Oxycodone/ Acetaminophen (Percocet 5-325) 1 tab Q4H PRN ORAL Moderate Pain (Pain Scale 4-6) 04/07/18 15:45 04/14/18 15:29 Polyethylene Glycol (Miralax) 17 gm HSPRN PRN ORAL Constipation 04/07/18 21:00 05/07/18 20:59 Pregabalin (Lyrica) 75 mg Q8HR ORAL 04/07/18 18:00 05/07/18 17:59 04/09/18 13:30 Quetiapine Fumarate (SEROquel) 300 mg BEDTIME ORAL 04/07/18 21:00 05/07/18 20:59 04/09/18 20:45 Theophylline (Bobby-Dur) 100 mg Q12HR ORAL 04/07/18 21:00 05/07/18 20:59 04/09/18 20:45 Trazodone HCl (Desyrel) 150 mg BEDTIME ORAL 04/07/18 21:00 05/07/18 20:59 04/09/18 20:44 Ziprasidone (Geodon) 20 mg DAILY ORAL 04/08/18 09:00 05/08/18 08:59 04/09/18 08:02 Zolpidem Tartrate (Ambien) 5 mg HSPRN PRN ORAL Insomnia 04/07/18 21:00 04/14/18 20:59 Natalya Lopez M.D. Apr 09, 2018 21:00
[2018-04-10] VITALS: BP 111/69
[2018-04-10] MEDS: Morphine Sulfate 2mg/ml Inj IVP PRN ×4 (03:19→20:38)
[2018-04-10 04:28] VITALS: BP 114/68
[2018-04-10] MEDS: Lyrica 75mg cap ORAL SCH ×3 (06:05→21:28)
[2018-04-10] MEDS: NovoLOG Insulin Flexpen SUBQ SCH ×4 (06:06→20:50)
[2018-04-10 08:00] VITALS: BP 118/71
[2018-04-10] MEDS: Ziprasidone 20mg cap ORAL SCH (08:33)
[2018-04-10] MEDS: Depakote 500mg tab ORAL SCH ×2 (08:33→20:37)
[2018-04-10] MEDS: Theophylline ER 100mg ORAL SCH ×2 (08:33→20:37)
[2018-04-10] MEDS: OLANZapine 2.5mg tab ORAL SCH (08:33)
[2018-04-10] MEDS: Heparin 5000 units/ml inj SUBQ SCH ×2 (09:00→20:51)
--- NOTE | 2018-04-10 10:16 | General Progress Note ---
Assessment/Plan Problem List: (1) Blister (nonthermal), unspecified foot, sequela ICD Codes: S90.829S - Blister (nonthermal), unspecified foot, sequela SNOMED: 367423252 (2) Weak ICD Codes: R53.1 - Weakness SNOMED: 97823870 (3) HTN (hypertension) ICD Codes: I10 - Essential (primary) hypertension SNOMED: 47808397 (4) CVA (cerebral vascular accident) ICD Codes: I63.9 - Cerebral infarction, unspecified SNOMED: 709272174 (5) Diabetes ICD Codes: E11.9 - Diabetes mellitus SNOMED: 18246672 (6) Generalized weakness ICD Codes: R53.1 - Weakness SNOMED: 60725616 Status: stable, progressing Assessment/Plan ot pt diet wound care abx cbc bmp am dc to snf if clear Subjective Constitutional: Reports: weakness Allergies: Coded Allergies: No Known Allergies (Unverified , 02/06/15) All Systems: reviewed and negative except above Subjective calm in bed Objective Last 24 Hour Vital Signs Date Time Temp Pulse Resp B/P (MAP) Pulse Ox O2 Delivery O2 Flow Rate FiO2 04/10/18 08:00 97.7 97 18 118/71 93 Room Air 97.7 04/10/18 04:28 97.9 74 17 114/68 96 97.9 04/10/18 00:00 98.2 85 16 111/69 95 98.2 04/09/18 21:37 95 Room Air 04/09/18 21:37 91 18 Room Air 04/09/18 21:37 Room Air 04/09/18 20:00 98.1 102 17 117/71 97 98.1 04/09/18 18:49 98.2 04/09/18 16:00 98.2 83 20 115/72 98 98.2 04/09/18 15:01 98.6 04/09/18 14:31 98.6 04/09/18 14:29 98.6 04/09/18 13:30 98.6 04/09/18 11:25 98.6 85 20 110/70 96 98.6 04/09/18 10:28 97.7 Intake and Output 04/09/18 04/10/18 19:00 07:00 Intake Total 1200 ml Balance 1200 ml Intake Oral 1200 ml # Voids 4 2 Height (Feet): 5 Height (Inches): 11.00 Weight (Pounds): 230 General Appearance: alert, lethargic EENT: normal ENT inspection Neck: normal alignment Cardiovascular: normal peripheral pulses, normal rate, regular rhythm Respiratory/Chest: chest wall non-tender, lungs clear, normal breath sounds Abdomen: normal bowel sounds, non tender, soft Extremities: normal inspection Edema: no edema noted Arm (L), no edema noted Arm (R), no edema noted Leg (L), no edema noted Leg (R), no edema noted Pedal (L), no edema noted Pedal (R), no edema noted Generalized Neurologic: responsive, motor weakness Skin: normal pigmentation, warm/dry Aniceto Sepulveda DO Apr 10, 2018 10:16
[2018-04-10] MEDS: Albuterol/Ipratropium 3ml neb HHN PRN (11:46)
[2018-04-10 12:00] VITALS: BP 117/94
--- NOTE | 2018-04-10 13:07 | Infectious Diseases Prog Note ---
Assessment/Plan Assessment/Plan Abx: None Assessment: b/l Feet blisters (from extensive walking in likely component of diabetic neuropathy)- no signs of infection afebrile, no leukocytosis COPD DM HTN CVA/TIA back and neck surgery peripheral neuropathy psych hx homelessness Plan: -Continue to monitor off abx; ok go discharge from ID perspective -wound care, pain control -podiatry f/u -f/u cx -Monitor CBC/CMP, temperatures Thank you for this consultation. Will continue to follow along with you. Discussed with RN. Subjective Allergies: Coded Allergies: No Known Allergies (Unverified , 02/06/15) Subjective afebrile no leukocytosis off abx discharge planning Objective Vital Signs Last 24 Hour Vital Signs Date Time Temp Pulse Resp B/P (MAP) Pulse Ox O2 Delivery O2 Flow Rate FiO2 04/10/18 11:46 32 04/10/18 11:46 83 18 97 Room Air 04/10/18 09:40 88 16 Room Air 04/10/18 09:40 Room Air 04/10/18 09:40 97 Room Air 04/10/18 08:00 97.7 97 18 118/71 93 Room Air 97.7 04/10/18 04:28 97.9 74 17 114/68 96 97.9 04/10/18 00:00 98.2 85 16 111/69 95 98.2 04/09/18 21:37 95 Room Air 04/09/18 21:37 91 18 Room Air 04/09/18 21:37 Room Air 04/09/18 20:00 98.1 102 17 117/71 97 98.1 04/09/18 18:49 98.2 04/09/18 16:00 98.2 83 20 115/72 98 98.2 04/09/18 15:01 98.6 04/09/18 14:31 98.6 04/09/18 14:29 98.6 04/09/18 13:30 98.6 Height (Feet): 5 Height (Inches): 11.00 Weight (Pounds): 230 Objective GENERAL: Calm in bed, in the ER gurney, oriented x3, and in no acute distress. CARDIOVASCULAR: No murmurs. LUNGS: Distant and clear. ABDOMEN: Bowel sounds positive. Nontender. Nondistended. EXTREMITIES: No cyanosis, clubbing, or edema. Bottom of the sole with multiple 1 inch x 0.5 inch blister in the bottom of metatarsal bilaterally. no purulent discharge NEUROLOGIC: The patient moves all extremities. Slightly weak. Current Medications Medications (Trade) Dose Ordered Sig/Sofia Route PRN Reason Start Time Stop Time Status Last Admin Dose Admin Acetaminophen (Tylenol) 650 mg Q4H PRN ORAL T>100.5 04/07/18 15:45 05/07/18 15:44 Al Hydroxide/Mg Hydroxide (Mylanta II) 30 ml Q6H PRN ORAL dyspepsia 04/07/18 15:45 05/07/18 15:44 Albuterol/ Ipratropium (Albuterol/ Ipratropium) 3 ml Q4H PRN HHN Shortness of Breath 04/08/18 10:07 04/13/18 10:06 04/10/18 11:46 Dextrose (Dextrose 50%) 25 ml PRN IV Hypoglycemia 04/07/18 16:00 05/07/18 15:59 Dextrose (Dextrose 50%) 50 ml PRN IV hypoglycemia 04/07/18 16:00 05/07/18 15:59 Divalproex Sodium (Depakote) 500 mg Q12HR ORAL 04/10/18 09:00 05/07/18 20:59 04/10/18 08:33 Heparin Sodium (Porcine) (Heparin 5000 units/ml) 5,000 units EVERY 12 HOURS SUBQ 04/07/18 21:00 05/07/18 20:59 04/08/18 21:07 Insulin Aspart (NovoLOG) BEFORE MEALS AND HS SUBQ 04/07/18 17:00 05/07/18 16:59 04/10/18 12:06 Lorazepam (Ativan 2mg/ml 1ml) 0.5 mg Q4H PRN IV For Anxiety 04/07/18 16:00 04/14/18 15:59 Morphine Sulfate (Morphine Sulfate) 1 mg Q4H PRN IVP Severe Pain (Pain Scale 7-10) 04/07/18 15:45 04/14/18 15:44 04/10/18 08:24 Olanzapine (ZyPREXA) 2.5 mg DAILY ORAL 04/08/18 09:00 05/08/18 08:59 04/10/18 08:33 Ondansetron HCl (Zofran) 4 mg Q6H PRN IVP Nausea & Vomiting 04/07/18 15:45 05/07/18 15:44 Oxycodone/ Acetaminophen (Percocet 5-325) 1 tab Q4H PRN ORAL Moderate Pain (Pain Scale 4-6) 04/07/18 15:45 04/14/18 15:29 Polyethylene Glycol (Miralax) 17 gm HSPRN PRN ORAL Constipation 04/07/18 21:00 05/07/18 20:59 Pregabalin (Lyrica) 75 mg Q8HR ORAL 04/07/18 18:00 05/07/18 17:59 04/10/18 06:05 Quetiapine Fumarate (SEROquel) 300 mg BEDTIME ORAL 04/07/18 21:00 05/07/18 20:59 04/09/18 20:45 Theophylline (Bobby-Dur) 100 mg Q12HR ORAL 04/07/18 21:00 05/07/18 20:59 04/10/18 08:33 Trazodone HCl (Desyrel) 150 mg BEDTIME ORAL 04/07/18 21:00 05/07/18 20:59 04/09/18 20:44 Ziprasidone (Geodon) 20 mg DAILY ORAL 04/08/18 09:00 05/08/18 08:59 04/10/18 08:33 Zolpidem Tartrate (Ambien) 5 mg HSPRN PRN ORAL Insomnia 04/07/18 21:00 04/14/18 20:59 Natalya Lopez M.D. Apr 10, 2018 13:07
[2018-04-10 20:00] VITALS: BP 126/78
[2018-04-10] MEDS: TraZODone 50mg tab ORAL SCH (20:36)
[2018-04-11] VITALS: BP 121/78
[2018-04-11] MEDS: Morphine Sulfate 2mg/ml Inj IVP PRN ×5 (01:31→20:50)
[2018-04-11 03:55] VITALS: BP 105/69
[2018-04-11] MEDS: Lyrica 75mg cap ORAL SCH ×3 (05:56→21:35)
[2018-04-11] MEDS: NovoLOG Insulin Flexpen SUBQ SCH ×4 (06:00→20:51)
[2018-04-11 06:20] LABS: ANION GAP 9 mmol/L (5-15); BLOOD UREA NITROGEN 15 mg/dL (7-18); CALCIUM 8.9 MG/DL (8.5-10.1); CARBON DIOXIDE 27 MMOL/L (21-32); CHLORIDE 103 MMOL/L (98-107); CREATININE 0.9 MG/DL (0.55-1.30); POTASSIUM 3.8 MMOL/L (3.5-5.1); SODIUM 139 MMOL/L (136-145)
[2018-04-11 07:34] LABS: BASOPHILS % (AUTO) 0.9 % (0.0-2.0); EOSINOPHILS % (AUTO) 2.1 % (0.0-3.0); HEMATOCRIT 42.9 % (42.0-52.0); HEMOGLOBIN 14.7 G/DL (14.2-18.0); LYMPHOCYTES % (AUTO) 34.3 % (20.0-45.0); MEAN CORPUSCULAR VOLUME 85 FL (80-99); MONOCYTES % (AUTO) 7.7 % (1.0-10.0); NEUTROPHILS % (AUTO) 55.1 % (45.0-75.0); PLATELET COUNT 192 K/UL (150-450); RED BLOOD COUNT 5.06 M/UL (4.70-6.10); RED CELL DISTRIBUTION WIDTH 11.7 % (11.6-14.8); WHITE BLOOD COUNT 8.7 K/UL (4.8-10.8)
[2018-04-11 08:00] VITALS: BP 108/64
[2018-04-11] MEDS: Depakote 500mg tab ORAL SCH ×2 (09:35→20:49)
[2018-04-11] MEDS: Heparin 5000 units/ml inj SUBQ SCH ×2 (09:36→21:00)
[2018-04-11] MEDS: Theophylline ER 100mg ORAL SCH ×2 (09:36→20:49)
[2018-04-11] MEDS: Ziprasidone 20mg cap ORAL SCH (09:36)
[2018-04-11] MEDS: OLANZapine 2.5mg tab ORAL SCH (09:36)
--- NOTE | 2018-04-11 11:38 | General Progress Note ---
Assessment/Plan Problem List: (1) Blister (nonthermal), unspecified foot, sequela ICD Codes: S90.829S - Blister (nonthermal), unspecified foot, sequela SNOMED: 962126455 (2) Weak ICD Codes: R53.1 - Weakness SNOMED: 34715818 (3) HTN (hypertension) ICD Codes: I10 - Essential (primary) hypertension SNOMED: 70288700 (4) CVA (cerebral vascular accident) ICD Codes: I63.9 - Cerebral infarction, unspecified SNOMED: 090906215 (5) Diabetes ICD Codes: E11.9 - Diabetes mellitus SNOMED: 63082618 (6) Generalized weakness ICD Codes: R53.1 - Weakness SNOMED: 06919247 Status: stable, progressing Assessment/Plan ot pt diet wound care abx cbc bmp am dc to snf if clear Subjective Constitutional: Reports: weakness Allergies: Coded Allergies: No Known Allergies (Unverified , 02/06/15) All Systems: reviewed and negative except above Subjective calm in bed Objective Last 24 Hour Vital Signs Date Time Temp Pulse Resp B/P (MAP) Pulse Ox O2 Delivery O2 Flow Rate FiO2 04/11/18 08:00 97.8 89 19 108/64 93 97.8 04/11/18 07:56 96 Room Air 21 04/11/18 07:56 Room Air 04/11/18 07:56 59 18 Room Air 21 04/11/18 03:55 98.1 86 18 105/69 98 Nasal Cannula 2.0 98.1 04/11/18 00:00 98.4 89 18 121/78 96 Nasal Cannula 2.0 98.4 04/10/18 20:00 97.7 85 19 126/78 96 Nasal Cannula 2.0 97.7 04/10/18 20:00 88 18 Nasal Cannula 2.0 28 04/10/18 20:00 Nasal Cannula 2.0 28 04/10/18 20:00 95 Nasal Cannula 2.0 28 04/10/18 15:06 97.3 04/10/18 12:00 97.3 94 18 117/94 94 Room Air 97.3 04/10/18 11:46 32 04/10/18 11:46 83 18 97 Room Air Intake and Output 04/10/18 04/11/18 19:00 07:00 Intake Total 1500 ml 1200 ml Balance 1500 ml 1200 ml Intake Oral 1500 ml 1200 ml # Voids 3 Laboratory Tests 04/11/18 05:20: White Blood Count 8.7, Red Blood Count 5.06, Hemoglobin 14.7, Hematocrit 42.9, Mean Corpuscular Volume 85, Mean Corpuscular Hemoglobin 29.0, Mean Corpuscular Hemoglobin Concent 34.2, Red Cell Distribution Width 11.7, Platelet Count 192, Mean Platelet Volume 8.8, Neutrophils (%) (Auto) 55.1, Lymphocytes (%) (Auto) 34.3, Monocytes (%) (Auto) 7.7, Eosinophils (%) (Auto) 2.1, Basophils (%) (Auto ) 0.9, Sodium Level 139, Potassium Level 3.8, Chloride Level 103, Carbon Dioxide Level 27, Anion Gap 9, Blood Urea Nitrogen 15, Creatinine 0.9, Estimat Glomerular Filtration Rate > 60, Glucose Level 143H, Calcium Level 8.9 Height (Feet): 5 Height (Inches): 11.00 Weight (Pounds): 230 General Appearance: alert EENT: normal ENT inspection Neck: normal alignment Cardiovascular: normal peripheral pulses, normal rate, regular rhythm Respiratory/Chest: chest wall non-tender, lungs clear, normal breath sounds Abdomen: normal bowel sounds, non tender, soft Extremities: normal inspection Edema: no edema noted Arm (L), no edema noted Arm (R), no edema noted Leg (L), no edema noted Leg (R), no edema noted Pedal (L), no edema noted Pedal (R), no edema noted Generalized Neurologic: responsive, motor weakness Skin: normal pigmentation, warm/dry Aniceto Sepulveda DO Apr 11, 2018 11:38
[2018-04-11 12:00] VITALS: BP 105/67
--- NOTE | 2018-04-11 12:41 | General Progress Note ---
Assessment/Plan Assessment/Plan (1) Chiari malformation type II (2) Degenerative disc disease, cervical (3) Lumbar degenerative disc disease (4) Arthritis, lumbar spine (5) Peripheral neuropathy (6) Hydrocephalus (7) Diabetes mellitus Pt will be continued on Morphine and percocet. Pt was d/w Dr. Napier and he concurred. Subjective Date patient seen: Apr 11, 2018 Time patient seen: 12:15 - pm Allergies: Coded Allergies: No Known Allergies (Unverified , 02/06/15) Subjective Constitutional: Reports: weakness, Denies: chills, diaphoresis, fever, malaise , no symptoms, other HEENT: Denies: blurred vision, double vision, ear discharge, ear pain, eye pain , mouth pain, mouth swelling, no symptoms, nose congestion, nose pain, other, tearing, throat pain, throat swelling Cardiovascular: Denies: chest pain, edema, irregular heart rate, lightheadedness, no symptoms, other, palpitations, syncope Respiratory: Denies: SOB at rest, SOB with excertion, cough, no symptoms, orthopnea, other, shortness of breath, sputum, stridor, wheezing Gastrointestinal/Abdominal: Denies: abdomen distended, abdominal pain, black stools, blood in stool, constipated, diarrhea, difficulty swallowing, nausea, no symptoms, other, poor appetite, poor fluid intake, rectal bleeding, tarry stools, vomiting Genitourinary: Denies: burning, discharge, flank pain, frequency, hematuria, incontinence, no symptoms, other, pain, urgency Neurologic/Psychiatric: Reports: headache, numbness, tingling, weakness, Denies : anxiety, depressed, emotional problems, no symptoms, other, paresthesia, pre- existing deficit, seizure, tremors Endocrine: Denies: excessive sweating, flushing, increased hunger, increased thirst, increased urine, intolerance to cold, intolerance to heat, no symptoms, other, unexplained weight gain, unexplained weight loss Hematologic/Lymphatic: Denies: anemia, easy bleeding, easy bruising, no symptoms, other Subjective Pt is in bed no signs of pain or distress. Comfortable with no new complaints. Objective Last 24 Hour Vital Signs Date Time Temp Pulse Resp B/P (MAP) Pulse Ox O2 Delivery O2 Flow Rate FiO2 04/11/18 12:00 97.7 92 18 105/67 97 Nasal Cannula 2.0 97.7 04/11/18 08:00 97.8 89 19 108/64 93 97.8 04/11/18 07:56 96 Room Air 21 04/11/18 07:56 Room Air 04/11/18 07:56 59 18 Room Air 21 04/11/18 03:55 98.1 86 18 105/69 98 Nasal Cannula 2.0 98.1 04/11/18 00:00 98.4 89 18 121/78 96 Nasal Cannula 2.0 98.4 04/10/18 20:00 97.7 85 19 126/78 96 Nasal Cannula 2.0 97.7 04/10/18 20:00 88 18 Nasal Cannula 2.0 28 04/10/18 20:00 Nasal Cannula 2.0 28 04/10/18 20:00 95 Nasal Cannula 2.0 28 04/10/18 15:06 97.3 Intake and Output 04/10/18 04/11/18 19:00 07:00 Intake Total 1500 ml 1200 ml Balance 1500 ml 1200 ml Intake Oral 1500 ml 1200 ml # Voids 3 Laboratory Tests 04/11/18 05:20: White Blood Count 8.7, Red Blood Count 5.06, Hemoglobin 14.7, Hematocrit 42.9, Mean Corpuscular Volume 85, Mean Corpuscular Hemoglobin 29.0, Mean Corpuscular Hemoglobin Concent 34.2, Red Cell Distribution Width 11.7, Platelet Count 192, Mean Platelet Volume 8.8, Neutrophils (%) (Auto) 55.1, Lymphocytes (%) (Auto) 34.3, Monocytes (%) (Auto) 7.7, Eosinophils (%) (Auto) 2.1, Basophils (%) (Auto ) 0.9, Sodium Level 139, Potassium Level 3.8, Chloride Level 103, Carbon Dioxide Level 27, Anion Gap 9, Blood Urea Nitrogen 15, Creatinine 0.9, Estimat Glomerular Filtration Rate > 60, Glucose Level 143H, Calcium Level 8.9 Height (Feet): 5 Height (Inches): 11.00 Weight (Pounds): 230 Objective General Appearance: no apparent distress, alert EENT: normal ENT inspection, TMs normal Neck: supple, limited range of motion, muscle spasm Cardiovascular: normal rate, regular rhythm Respiratory/Chest: decreased breath sounds Abdomen: non tender, soft Extremities: non-tender Edema: no edema noted Arm (L), no edema noted Arm (R), no edema noted Leg (L), no edema noted Leg (R), no edema noted Pedal (L), no edema noted Pedal (R), no edema noted Generalized Neurologic: alert, oriented x 3 Skin: warm/dry Joao Munoz Apr 11, 2018 12:41
[2018-04-11 16:00] VITALS: BP 130/73
[2018-04-11 20:16] VITALS: BP 124/72
[2018-04-11] MEDS: TraZODone 50mg tab ORAL SCH (20:49)
[2018-04-12] VITALS: BP 110/70
[2018-04-12 04:00] VITALS: BP 120/59
[2018-04-12] MEDS: Morphine Sulfate 2mg/ml Inj IVP PRN ×3 (04:37→12:42)
[2018-04-12] MEDS: NovoLOG Insulin Flexpen SUBQ SCH ×2 (06:02→12:01)
[2018-04-12] MEDS: Lyrica 75mg cap ORAL SCH ×2 (06:03→14:10)
[2018-04-12 07:31] LABS: EOSINOPHILS % (AUTO) 2.1 % (0.0-3.0); HEMATOCRIT 43.5 % (42.0-52.0); HEMOGLOBIN 14.9 G/DL (14.2-18.0); LYMPHOCYTES % (AUTO) 32.1 % (20.0-45.0); MEAN CORPUSCULAR VOLUME 85 FL (80-99); MONOCYTES % (AUTO) 8.2 % (1.0-10.0); NEUTROPHILS % (AUTO) 56.7 % (45.0-75.0); PLATELET COUNT 178 K/UL (150-450); RED BLOOD COUNT 5.13 M/UL (4.70-6.10); RED CELL DISTRIBUTION WIDTH 11.9 % (11.6-14.8); WHITE BLOOD COUNT 8.2 K/UL (4.8-10.8)
[2018-04-12 07:47] LABS: ANION GAP 9 mmol/L (5-15); BLOOD UREA NITROGEN 17 mg/dL (7-18); CALCIUM 8.4 MG/DL (8.5-10.1); CARBON DIOXIDE 26 MMOL/L (21-32); CHLORIDE 104 MMOL/L (98-107); CREATININE 0.9 MG/DL (0.55-1.30); POTASSIUM 3.9 MMOL/L (3.5-5.1); SODIUM 139 MMOL/L (136-145)
--- NOTE | 2018-04-12 07:54 | General Progress Note ---
Assessment/Plan Assessment/Plan (1) Chiari malformation type II (2) Degenerative disc disease, cervical (3) Lumbar degenerative disc disease (4) Arthritis, lumbar spine (5) Peripheral neuropathy (6) Hydrocephalus (7) Diabetes mellitus Pt will be continued on Morphine and percocet. Pt was d/w Dr. Napier and he concurred. Subjective Date patient seen: Apr 12, 2018 Time patient seen: 07:30 - am Allergies: Coded Allergies: No Known Allergies (Unverified , 02/06/15) Subjective Constitutional: Reports: weakness, Denies: chills, diaphoresis, fever, malaise , no symptoms, other HEENT: Denies: blurred vision, double vision, ear discharge, ear pain, eye pain , mouth pain, mouth swelling, no symptoms, nose congestion, nose pain, other, tearing, throat pain, throat swelling Cardiovascular: Denies: chest pain, edema, irregular heart rate, lightheadedness, no symptoms, other, palpitations, syncope Respiratory: Denies: SOB at rest, SOB with excertion, cough, no symptoms, orthopnea, other, shortness of breath, sputum, stridor, wheezing Gastrointestinal/Abdominal: Denies: abdomen distended, abdominal pain, black stools, blood in stool, constipated, diarrhea, difficulty swallowing, nausea, no symptoms, other, poor appetite, poor fluid intake, rectal bleeding, tarry stools, vomiting Genitourinary: Denies: burning, discharge, flank pain, frequency, hematuria, incontinence, no symptoms, other, pain, urgency Neurologic/Psychiatric: Reports: headache, numbness, tingling, weakness, Denies : anxiety, depressed, emotional problems, no symptoms, other, paresthesia, pre- existing deficit, seizure, tremors Endocrine: Denies: excessive sweating, flushing, increased hunger, increased thirst, increased urine, intolerance to cold, intolerance to heat, no symptoms, other, unexplained weight gain, unexplained weight loss Hematologic/Lymphatic: Denies: anemia, easy bleeding, easy bruising, no symptoms, other Subjective Pt reports that his pain has been well controlled and tolerated on the Morphine and Percocet. He has no new complaints. Objective Last 24 Hour Vital Signs Date Time Temp Pulse Resp B/P (MAP) Pulse Ox O2 Delivery O2 Flow Rate FiO2 04/12/18 05:07 97.3 04/12/18 05:07 97.3 04/12/18 04:00 97.3 87 17 120/59 96 Room Air 97.3 04/12/18 00:00 87 18 110/70 94 Room Air 04/11/18 20:16 98.1 91 18 124/72 95 Room Air 98.1 04/11/18 20:00 90 18 Room Air 21 04/11/18 19:30 95 Room Air 21 04/11/18 19:30 Room Air 21 04/11/18 16:00 99.1 95 18 130/73 98 Nasal Cannula 2.0 99.1 04/11/18 12:00 97.7 92 18 105/67 97 Nasal Cannula 2.0 97.7 04/11/18 08:00 97.8 89 19 108/64 93 97.8 04/11/18 07:56 96 Room Air 21 04/11/18 07:56 Room Air 04/11/18 07:56 59 18 Room Air 21 Intake and Output 04/11/18 04/12/18 19:00 07:00 Intake Total 1500 ml Balance 1500 ml Intake Oral 1500 ml # Voids 3 Laboratory Tests 04/12/18 07:10: White Blood Count 8.2, Red Blood Count 5.13, Hemoglobin 14.9, Hematocrit 43.5, Mean Corpuscular Volume 85, Mean Corpuscular Hemoglobin 29.0, Mean Corpuscular Hemoglobin Concent 34.2, Red Cell Distribution Width 11.9, Platelet Count 178, Mean Platelet Volume 8.3, Neutrophils (%) (Auto) 56.7, Lymphocytes (%) (Auto) 32.1, Monocytes (%) (Auto) 8.2, Eosinophils (%) (Auto) 2.1, Basophils (%) (Auto ) 1.0, Sodium Level 139, Potassium Level 3.9, Chloride Level 104, Carbon Dioxide Level 26, Anion Gap 9, Blood Urea Nitrogen 17, Creatinine 0.9, Estimat Glomerular Filtration Rate > 60, Glucose Level 131H, Calcium Level 8.4L Height (Feet): 5 Height (Inches): 11.00 Weight (Pounds): 230 Objective General Appearance: no apparent distress, alert EENT: normal ENT inspection, TMs normal Neck: supple, limited range of motion, muscle spasm Cardiovascular: normal rate, regular rhythm Respiratory/Chest: decreased breath sounds Abdomen: non tender, soft Extremities: non-tender Edema: no edema noted Arm (L), no edema noted Arm (R), no edema noted Leg (L), no edema noted Leg (R), no edema noted Pedal (L), no edema noted Pedal (R), no edema noted Generalized Neurologic: alert, oriented x 3 Skin: warm/dry Joao Munoz Apr 12, 2018 07:54
[2018-04-12 08:00] VITALS: BP 108/58
[2018-04-12] MEDS: Ziprasidone 20mg cap ORAL SCH (08:36)
[2018-04-12] MEDS: OLANZapine 2.5mg tab ORAL SCH (08:37)
[2018-04-12] MEDS: Theophylline ER 100mg ORAL SCH (08:37)
[2018-04-12] MEDS: Depakote 500mg tab ORAL SCH (08:37)
[2018-04-12] MEDS: Heparin 5000 units/ml inj SUBQ SCH (08:38)
--- NOTE | 2018-04-12 10:00 | Progress Note ---
DATE: 04/11/2018 SUBJECTIVE: This is a 37-year-old male patient, who still has racing thoughts, pressured speech, mood lability. He has no logical plan for his own self-care. He has got feelings of helplessness, hopelessness, low energy, 00:15 significantly altered mental status. That is why, his attending has requested daily psychiatric consultation. MENTAL STATUS EXAMINATION: A 37-year-old male. Appearance is disheveled. Attitude, irritable and agitated. Affect guarded and restricted. Intellect poor. Mood depressed and anxious. Motor activity, psychomotor agitation. Attention span is poor. Orientation x2. Speech is pressured. Thought process, disorganized and illogical. Thought content, auditory hallucinations and paranoid delusions. Insight and judgement is poor. DIAGNOSIS: Schizoaffective, bipolar type. PLAN: Treat him with Seroquel 300 mg nightly, Trileptal 150 mg twice day, 00:47 100 mg twice day, Geodon 20 mg, 00:50 daily. Also provided 18 to 20 minutes of supportive psychotherapy. 00:55 to help him understand and have 01:00 symptoms to help control his mood lability and agitation. Again, 18 to 20 minutes of psychotherapy provided. Chart reviewed and discussed with staff. Seen and assessed in his room. Charmaine Victor M.D. DR: Yordan JOB#: [id number] CC:
--- NOTE | 2018-04-12 10:00 | Consultation ---
DATE OF CONSULTATION: 04/10/2018 NOTE: "VERY POOR AUDIO QUALITY" HISTORY OF PRESENT ILLNESS: This is a 37-year-old male patient gravely disabled . He came in to the [facility], confused, disorganized, mood labile, paranoid delusions with extreme mood lability. altered because of decline in his cognition and medical problems. He stated that he had disabled and he also has racing thoughts and pressured speech, so because of his decline in cognition and altered mental status, his attending has requested daily psychiatric consultation for that reason. MEDICAL PROBLEMS: Neuropathy of lower extremity, weakness of lower extremity, and he has difficulty with ambulation. ALLERGIES: No known drug allergies. SUBSTANCE ABUSE HISTORY: He has history of polysubstance abuse, but . SOCIAL HISTORY: He is financially supported by [employer] and Medicare. ALLERGIES: No known drug allergies. FAMILY PSYCHIATRIC HISTORY: Denies. PSYCHIATRIC HISTORY: He has history of schizoaffective bipolar type, multiple psychiatric admissions. STRENGTHS: He is motivated to be better and relatively healthy . WEAKNESSES: He is impulsive and support system. MENTAL STATUS EXAMINATION: This is a 37-year-old male. Appearance is disheveled. Attitude, irritable and agitated. Affect, guarded and restricted. Intellect poor. Mood is depressed and anxious. Motor activity, psychomotor agitation. Attention span is poor. Orientation x2. Speech is pressured. Thought process, disorganized and illogical. Thought content, auditory hallucinations and paranoid delusions. Insight and judgment is poor. DIAGNOSIS: Schizoaffective, bipolar type. PLAN: Plan for this patient is to continue titrating up on his medication regimen to stabilize his mood. My plan is to titrate upon his Depakote to 500 mg twice a day, treat him with Geodon 20 mg a day, Seroquel 300 nightly, trazodone at 150 mg nightly. Provided 20 minutes of supportive psychotherapy. Also, Zyprexa 2.5 mg daily as well and encouraged him to interact appropriately with staff and other patients. Again, 20 minutes of supportive therapy provided. Chart reviewed and discussed with staff. 03:[address]: JOHN JOB#: [id number] CC:
--- NOTE | 2018-04-12 10:33 | General Progress Note ---
Assessment/Plan Problem List: (1) Blister (nonthermal), unspecified foot, sequela ICD Codes: S90.829S - Blister (nonthermal), unspecified foot, sequela SNOMED: 056259226 (2) Weak ICD Codes: R53.1 - Weakness SNOMED: 01104672 (3) HTN (hypertension) ICD Codes: I10 - Essential (primary) hypertension SNOMED: 49962462 (4) CVA (cerebral vascular accident) ICD Codes: I63.9 - Cerebral infarction, unspecified SNOMED: 537432703 (5) Diabetes ICD Codes: E11.9 - Diabetes mellitus SNOMED: 61298621 (6) Generalized weakness ICD Codes: R53.1 - Weakness SNOMED: 37784205 Status: stable, progressing Assessment/Plan ot pt diet wound care abx cbc bmp am dc to snf if clear Subjective Constitutional: Reports: weakness Allergies: Coded Allergies: No Known Allergies (Unverified , 02/06/15) All Systems: reviewed and negative except above Subjective calm in bed Objective Last 24 Hour Vital Signs Date Time Temp Pulse Resp B/P (MAP) Pulse Ox O2 Delivery O2 Flow Rate FiO2 04/12/18 08:00 97.9 94 22 108/58 99 97.9 04/12/18 05:07 97.3 04/12/18 05:07 97.3 04/12/18 04:00 97.3 87 17 120/59 96 Room Air 97.3 04/12/18 00:00 87 18 110/70 94 Room Air 04/11/18 20:16 98.1 91 18 124/72 95 Room Air 98.1 04/11/18 20:00 90 18 Room Air 21 04/11/18 19:30 95 Room Air 21 04/11/18 19:30 Room Air 21 04/11/18 16:00 99.1 95 18 130/73 98 Nasal Cannula 2.0 99.1 04/11/18 12:00 97.7 92 18 105/67 97 Nasal Cannula 2.0 97.7 Intake and Output 04/11/18 04/12/18 19:00 07:00 Intake Total 1500 ml Balance 1500 ml Intake Oral 1500 ml # Voids 3 Laboratory Tests 04/12/18 07:10: White Blood Count 8.2, Red Blood Count 5.13, Hemoglobin 14.9, Hematocrit 43.5, Mean Corpuscular Volume 85, Mean Corpuscular Hemoglobin 29.0, Mean Corpuscular Hemoglobin Concent 34.2, Red Cell Distribution Width 11.9, Platelet Count 178, Mean Platelet Volume 8.3, Neutrophils (%) (Auto) 56.7, Lymphocytes (%) (Auto) 32.1, Monocytes (%) (Auto) 8.2, Eosinophils (%) (Auto) 2.1, Basophils (%) (Auto ) 1.0, Sodium Level 139, Potassium Level 3.9, Chloride Level 104, Carbon Dioxide Level 26, Anion Gap 9, Blood Urea Nitrogen 17, Creatinine 0.9, Estimat Glomerular Filtration Rate > 60, Glucose Level 131H, Calcium Level 8.4L Height (Feet): 5 Height (Inches): 11.00 Weight (Pounds): 230 General Appearance: alert EENT: normal ENT inspection Neck: normal alignment Cardiovascular: normal peripheral pulses, normal rate, regular rhythm Respiratory/Chest: chest wall non-tender, lungs clear, normal breath sounds Abdomen: normal bowel sounds, non tender, soft Extremities: normal inspection Edema: no edema noted Arm (L), no edema noted Arm (R), no edema noted Leg (L), no edema noted Leg (R), no edema noted Pedal (L), no edema noted Pedal (R), no edema noted Generalized Neurologic: responsive, motor weakness Skin: normal pigmentation, warm/dry Aniceto Sepulveda DO Apr 12, 2018 10:33
[2018-04-12 12:00] VITALS: BP 111/63
--- NOTE | 2018-04-12 14:10 | Pulmonology Progress Note ---
Assessment/Plan Problems: (1) COPD (chronic obstructive pulmonary disease) (2) Generalized weakness (3) HTN (hypertension) (4) CVA (cerebral vascular accident) Assessment/Plan respiratory treatment symptomatic treatment check electrolytes dvt prophylaxis Subjective ROS Limited/Unobtainable: No Allergies: Coded Allergies: No Known Allergies (Unverified , 02/06/15) Objective Last 24 Hour Vital Signs Date Time Temp Pulse Resp B/P (MAP) Pulse Ox O2 Delivery O2 Flow Rate FiO2 04/12/18 12:00 97.7 91 21 111/63 97 97.7 04/12/18 08:40 Room Air 21 04/12/18 08:40 102 20 Room Air 21 04/12/18 08:40 96 Room Air 21 04/12/18 08:00 97.9 94 22 108/58 99 97.9 04/12/18 05:07 97.3 04/12/18 05:07 97.3 04/12/18 04:00 97.3 87 17 120/59 96 Room Air 97.3 04/12/18 00:00 87 18 110/70 94 Room Air 04/11/18 20:16 98.1 91 18 124/72 95 Room Air 98.1 04/11/18 20:00 90 18 Room Air 21 04/11/18 19:30 95 Room Air 21 04/11/18 19:30 Room Air 21 04/11/18 16:00 99.1 95 18 130/73 98 Nasal Cannula 2.0 99.1 Intake and Output 04/11/18 04/12/18 19:00 07:00 Intake Total 1500 ml Balance 1500 ml Intake Oral 1500 ml # Voids 3 General Appearance: WD/WN HEENT: normocephalic, atraumatic Respiratory/Chest: chest wall non-tender, lungs clear Abdomen: normal bowel sounds, soft, non tender, no scars Skin: no lesions Neurologic/Psychiatric: no motor/sensory deficits Laboratory Tests 04/12/18 07:10: White Blood Count 8.2, Red Blood Count 5.13, Hemoglobin 14.9, Hematocrit 43.5, Mean Corpuscular Volume 85, Mean Corpuscular Hemoglobin 29.0, Mean Corpuscular Hemoglobin Concent 34.2, Red Cell Distribution Width 11.9, Platelet Count 178, Mean Platelet Volume 8.3, Neutrophils (%) (Auto) 56.7, Lymphocytes (%) (Auto) 32.1, Monocytes (%) (Auto) 8.2, Eosinophils (%) (Auto) 2.1, Basophils (%) (Auto ) 1.0, Sodium Level 139, Potassium Level 3.9, Chloride Level 104, Carbon Dioxide Level 26, Anion Gap 9, Blood Urea Nitrogen 17, Creatinine 0.9, Estimat Glomerular Filtration Rate > 60, Glucose Level 131H, Calcium Level 8.4L Current Medications Medications (Trade) Dose Ordered Sig/Sofia Route PRN Reason Start Time Stop Time Status Last Admin Dose Admin Acetaminophen (Tylenol) 650 mg Q4H PRN ORAL T>100.5 04/07/18 15:45 05/07/18 15:44 Al Hydroxide/Mg Hydroxide (Mylanta II) 30 ml Q6H PRN ORAL dyspepsia 04/07/18 15:45 05/07/18 15:44 Albuterol/ Ipratropium (Albuterol/ Ipratropium) 3 ml Q4H PRN HHN Shortness of Breath 04/08/18 10:07 04/13/18 10:06 04/10/18 11:46 Dextrose (Dextrose 50%) 25 ml PRN IV Hypoglycemia 04/07/18 16:00 05/07/18 15:59 Dextrose (Dextrose 50%) 50 ml PRN IV hypoglycemia 04/07/18 16:00 05/07/18 15:59 Divalproex Sodium (Depakote) 500 mg Q12HR ORAL 04/10/18 09:00 05/07/18 20:59 04/12/18 08:37 Heparin Sodium (Porcine) (Heparin 5000 units/ml) 5,000 units EVERY 12 HOURS SUBQ 04/07/18 21:00 05/07/18 20:59 04/08/18 21:07 Insulin Aspart (NovoLOG) BEFORE MEALS AND HS SUBQ 04/07/18 17:00 05/07/18 16:59 04/12/18 12:01 Lorazepam (Ativan 2mg/ml 1ml) 0.5 mg Q4H PRN IV For Anxiety 04/07/18 16:00 04/14/18 15:59 Morphine Sulfate (Morphine Sulfate) 1 mg Q4H PRN IVP Severe Pain (Pain Scale 7-10) 04/07/18 15:45 04/14/18 15:44 04/12/18 12:42 Olanzapine (ZyPREXA) 2.5 mg DAILY ORAL 04/08/18 09:00 05/08/18 08:59 04/12/18 08:37 Ondansetron HCl (Zofran) 4 mg Q6H PRN IVP Nausea & Vomiting 04/07/18 15:45 05/07/18 15:44 Oxycodone/ Acetaminophen (Percocet 5-325) 1 tab Q4H PRN ORAL Moderate Pain (Pain Scale 4-6) 04/07/18 15:45 04/14/18 15:29 Polyethylene Glycol (Miralax) 17 gm HSPRN PRN ORAL Constipation 04/07/18 21:00 05/07/18 20:59 Pregabalin (Lyrica) 75 mg Q8HR ORAL 04/07/18 18:00 05/07/18 17:59 04/12/18 06:03 Quetiapine Fumarate (SEROquel) 300 mg BEDTIME ORAL 04/07/18 21:00 05/07/18 20:59 04/11/18 20:49 Theophylline (Bobby-Dur) 100 mg Q12HR ORAL 04/07/18 21:00 05/07/18 20:59 04/12/18 08:37 Trazodone HCl (Desyrel) 150 mg BEDTIME ORAL 04/07/18 21:00 05/07/18 20:59 04/11/18 20:49 Ziprasidone (Geodon) 20 mg DAILY ORAL 04/08/18 09:00 05/08/18 08:59 04/12/18 08:36 Zolpidem Tartrate (Ambien) 5 mg HSPRN PRN ORAL Insomnia 04/07/18 21:00 04/14/18 20:59 Lashanda Pham MD Apr 12, 2018 14:10
--- NOTE | 2018-04-12 14:15 | Progress Note ---
DATE: 04/12/2018 SUBJECTIVE: This is a 37-year-old male patient is very disabled. This patient is confused and disorganized. Mood labile. . He is very depressed. He feels helplessness, hopelessness. That is why, his attending has requested daily psychiatric consultation. His cognition has progressively declined and below baseline. He has altered mental status and confusion. MENTAL STATUS EXAMINATION: A 37-year-old male. Appearance is disheveled. Attitude, irritable and agitated. Affect guarded and restricted. Intellect poor. Mood depressed and anxious. Motor activity, psychomotor agitation. Attention span is poor. Orientation x2. Speech is pressured. Thought process, disorganized and illogical. Thought content, auditory hallucinations and paranoid delusions. Insight and judgement is poor. DIAGNOSIS: Schizoaffective, bipolar type. PLAN: Treat him with Seroquel 300 mg at bedtime, Trileptal 150 mg twice a day, Depakote 500 mg twice a day, Geodon 20 mg a day, Zyprexa 2.5 mg daily. Provided 20 minutes of supportive cognitive behavior therapy this morning. labile. Psychosocial stressors with a cognitive behavioral therapy. environment and that is worsening his depression and anxiety. Working on change during the cognitive behavioral therapy so he has less depression and anxiety and thinks about stressors in a more adaptive way so it could be better less depression and anxiety. Provided 20 minutes of supportive psychotherapy. Charmaine Victor M.D. DR: MARY JOB#: [id number] CC:
--- NOTE | 2018-04-13 10:12 | Discharge Summary ---
Discharge Summary Discharge Summary _ DATE OF ADMISSION: 04/07/2018 DATE OF DISCHARGE: 04/12/2018 REASON FOR ADMISSION: 37 years old male with past medical history significant for diabetes, hypertension, CVA ,COPD , presented to emergency room with complaint of severe bilateral feet pain and blisters. Patient recently became homeless . He had difficulty walking due to pain. He stated that he had multiple falls. He stated that he felt unsteady and disoriented. He denied chest pain or shortness of breath. He denied abdominal pain. Vital signs were stable. Laboratory workup revealed no leukocytosis, stable hemoglobin and hematocrit, glucose 138 Patient admitted for further management with diagnosis of blister bilateral feet, stable bilateral lower extremity pain ,diabetes ,COPD, hypertension, history of CVA. CONSULTANTS: pulmonary Dr. Pham ID specialist Ben psychiatrist Dr. Victor data center project manager Pain specialist Dr. Napier [facility] COURSE: Patient admitted to Med Surg floor. Podiatry evaluation was requested. Wound care provided as per data center project manager recommendation. No surgical intervention necessary at this time. Pain management consult was requested. Pain management provided as per pain specialist recommendation . X-ray of L-spine revealed no evidence of acute bony injury. Pain was addressed and controlled . Fall precautions were maintained. Patient was working with physical and occupational therapists. Educational Program Director closely followed. Supplemental oxygen and pulmonary toilet provided as needed to keep pulse oximetry above 92%. No evidence of COPD exacerbation. Chest x-ray was negative for acute cardiopulmonary pathology. Blood sugar was managed with sliding scale of insulin , remained stable. Hemoglobin A1c 6.2, at goal. DVT prophylaxis provided. Infectious disease specialist closely followed. Per infectious disease specialist , no leukocytosis , no fevers. Infectious disease doctor recommended to keep patient off antibiotic and continue with wound care and pain management Psychiatrist closely followed. Psychiatrist diagnosed patient with schizoaffective bipolar type disorder. Psychiatrist optimized psychiatric medication regimen. Supportive cognitive behavioral therapy provided. Patient clinically improved. Place was found in recuperative care. Patient was stable for discharge to recuperative care via taxi. FINAL DIAGNOSES: Blisters bilateral feet Peripheral neuropathy Schizoaffective bipolar type COPD Diabetes mellitus Hypertension History of CVA DDD C-spine DDD L-spine Arthritis L-spine Homelessness DISCHARGE MEDICATIONS: See Medication Reconciliation list. DISCHARGE INSTRUCTIONS: Patient was discharged to recuperative care via taxi. Taxi voucher provided . Follow up with primary care provider in one week. I have been assigned to dictate discharge summary for this account. I was not involved in the patient's management. Elisa Antony NP Apr 13, 2018 10:12
== END 2018-04-12 17:10 | disposition home or self-care (01) | DRG 606 ==
LOC: EMR 08:14 → EDBEDREQ 09:01 → 4W 10:43 → EDBEDREQ 11:42
DX: S90.822A Blister (nonthermal), left foot, initial encounter (principal); G93.40 Encephalopathy, unspecified; Q07.02 Arnold-Chiari syndrome with hydrocephalus; S90.821A Blister (nonthermal), right foot, initial encounter; X58.XXXA Exposure to other specified factors, initial encounter; Z59.0 Homelessness; G62.9 Polyneuropathy, unspecified; F25.0 Schizoaffective disorder, bipolar type; J44.9 Chronic obstructive pulmonary disease, unspecified; I10 Essential (primary) hypertension; Z86.73 Personal history of transient ischemic attack (TIA), and cerebral infarction without residual deficits; M50.30 Other cervical disc degeneration, unspecified cervical region; M51.36 Other intervertebral disc degeneration, lumbar region; M46.86 Other specified inflammatory spondylopathies, lumbar region; R26.2 Difficulty in walking, not elsewhere classified; Z91.81 History of falling; E11.65 Type 2 diabetes mellitus with hyperglycemia; R53.1 Weakness; F19.21 Other psychoactive substance dependence, in remission
CPT/HCPCS: 36415; 71045; 72110; 80048; 80053; 80061; 82550; 82962; 83036; 83605; 83735; 84100; 85025; 94640; 94664; 94760; 99285; J1815; J7620

== ENCOUNTER 2018-04-17 17:57 | Emergency (ER) | payer MEDICARE, MEDICAID ==
[~2018-04-17] VITALS: Ht 180.3 cm; Wt 104.3 kg
[~2018-04-17 17:57] MED LIST changes: +TRAZODONE HCL150 MG ORAL; +ZYPREXA2.5 MG ORAL
[2018-04-17] MEDS ORDERED: NOVOLOG100 UNIT/3 SUBQ (18:09)
[2018-04-17] MEDS ORDERED: SEROQUEL200 MG ORAL (18:09)
[2018-04-17] MEDS ORDERED: LYRICA75 M1 ORAL (18:09)
--- NOTE | 2018-04-17 18:20 | Emergency Room Report ---
History of Present Illness General Chief Complaint: General Complaint Source: Patient Present Illness HPI Patient presents with complaints of elevated glucose levels Patient reports that he has had diarrhea recently His glucose was running around 300 Patient denies any chest pain or shortness of breath he has some mild epigastric discomfort Denies any dysuria frequency denies any fevers or chills reports that he is taking his usual insulin dosage Denies any neck pain or photophobia denies any fevers Allergies: Coded Allergies: No Known Allergies (Unverified , 02/06/15) Patient History Past Medical History: see triage record Pertinent Family History: none Reviewed Nursing Documentation: PMH: Agreed; PSxH: Agreed Nursing Documentation-PMH Hx Cardiac Problems: Yes Hx Hypertension: Yes Hx COPD: Yes Hx Diabetes: Yes Hx Cancer: No Hx Gastrointestinal Problems: Yes Hx Neurological Problems: Yes - BACK & NECK SURGERY Hx Cerebrovascular Accident: Yes - November 2017 Hx Peripheral Neuropathy: Yes Hx Head Trauma: Yes Hx Dizziness: Yes Hx Weakness: Yes Review of Systems All Other Systems: negative except mentioned in HPI Physical Exam Vital Signs Date Time Temp Pulse Resp B/P (MAP) Pulse Ox O2 Delivery O2 Flow Rate FiO2 04/17/18 18:00 98.2 101 17 119/73 96 Room Air 98.2 Sp02 EP Interpretation: reviewed, normal General Appearance: well appearing, no apparent distress Head: normocephalic, other - Mild abrasion to the right top scalp appears to be healing secondarily Eyes: bilateral eye PERRL, bilateral eye EOMI ENT: hearing grossly normal, normal pharynx, TMs + canals normal, uvula midline Neck: full range of motion, supple, no meningismus, no bony tend Respiratory: lungs clear, normal breath sounds, no rhonchi, no respiratory distress, no retraction, no accessory muscle use Cardiovascular #1: normal peripheral pulses, regular rate, rhythm, no edema, no gallop, no JVD, no murmur Gastrointestinal: normal bowel sounds, non tender, soft, no mass, no organomegaly, non-distended, no guarding, no hernia, no pulsatile mass, no rebound Genitourinary: no CVA tenderness Musculoskeletal: normal inspection Neurologic: oriented x3, responsive, foot doctor III-XII nml as tested, motor strength/ tone normal, sensory intact Psychiatric: mood/affect normal Skin: normal color, no rash, warm/dry, palpation normal Lymphatic: normal inspection, no adenopathy Medical Decision Making Diagnostic Impression: Primary Impression: Hyperglycemia ER Course Given the patient's history and presentation Initially IV hydration and extensive blood work was initiated Patient's Accu-Chek however was appropriate Therefore chemistry was sent Patient remains clinically well Appears well-hydrated Chemistry exam also does not reveal any acidosis And patient stable for close outpatient follow-up Labs Test 04/17/18 18:10 04/17/18 18:25 Urine Color Pale yellow Urine Appearance Clear Urine pH 7 (4.5-8.0) Urine Specific [place] 1.010 (1.005-1.035) Urine Protein Negative (NEGATIVE) Urine Glucose (UA) Negative (NEGATIVE) Urine Ketones Negative (NEGATIVE) Urine Occult Blood Negative (NEGATIVE) Urine Nitrite Negative (NEGATIVE) Urine Bilirubin Negative (NEGATIVE) Urine Urobilinogen Normal MG/DL (0.0-1.0) Urine Leukocyte Esterase Negative (NEGATIVE) Sodium Level 138 MMOL/L (136-145) Potassium Level 3.5 MMOL/L (3.5-5.1) Chloride Level 103 MMOL/L (98-107) Carbon Dioxide Level 24 MMOL/L (21-32) Anion Gap 11 mmol/L (5-15) Blood Urea Nitrogen 9 mg/dL (7-18) Creatinine 1.1 MG/DL (0.55-1.30) Estimat Glomerular Filtration Rate > 60 mL/min (>60) Glucose Level 183 MG/DL (74-106) Calcium Level 9.3 MG/DL (8.5-10.1) Total Bilirubin 0.2 MG/DL (0.2-1.0) Aspartate Amino Transf (AST/SGOT) 12 U/L (15-37) Alanine Aminotransferase (ALT/SGPT) 26 U/L (12-78) Alkaline Phosphatase 66 U/L (46-116) Total Protein 6.8 G/DL (6.4-8.2) Albumin 3.5 G/DL (3.4-5.0) Globulin 3.3 g/dL Albumin/Globulin Ratio 1.1 (1.0-2.7) Lipase 183 U/L (73-393) Last Vital Signs Date Time Temp Pulse Resp B/P (MAP) Pulse Ox O2 Delivery O2 Flow Rate FiO2 04/17/18 18:00 98.2 101 17 119/73 96 Room Air 98.2 Status: improved Disposition: ASSISTED LIVING Condition: Improved Additional Instructions: Patient is provided with the discharge instructions notified to follow up with primary doctor in the next 2-3 days otherwise return to the er with any worsening symptoms. Please note that this report is being documented using DRAGON technology. This can lead to erroneous entry secondary to incorrect interpretation by the dictating instrument. Cory Nguyen DO Apr 17, 2018 18:20
[2018-04-17] MEDS ORDERED: Insulin Human Regular 100units/ml 3ml IV ONE (18:30)
[2018-04-17 18:33] VITALS: BP 119/73
[2018-04-17 19:00] LABS: APPEARANCE,URINE CLEAR; BILIRUBIN, URINE NEGATIVE (NEGATIVE); COLOR,URINE PALE YELLOW; GLUCOSE, URINE (UA) NEGATIVE (NEGATIVE); KETONES,URINE NEGATIVE (NEGATIVE); LEUKOCYTE ESTERASE ,URINE NEGATIVE (NEGATIVE); NITRITE,URINE NEGATIVE (NEGATIVE); PH,URINE 7 (4.5-8.0); PROTEIN,URINE NEGATIVE (NEGATIVE); UROBILINOGEN,URINE NORMAL MG/DL (0.0-1.0)
[2018-04-17 19:05] LABS: ANION GAP 11 mmol/L (5-15); BLOOD UREA NITROGEN 9 mg/dL (7-18); CALCIUM 9.3 MG/DL (8.5-10.1); CARBON DIOXIDE 24 MMOL/L (21-32); CHLORIDE 103 MMOL/L (98-107); CREATININE 1.1 MG/DL (0.55-1.30); POTASSIUM 3.5 MMOL/L (3.5-5.1); SODIUM 138 MMOL/L (136-145)
[2018-04-17 19:10] LABS: ALANINE AMINOTRANSFERASE 26 U/L (12-78); ALBUMIN 3.5 G/DL (3.4-5.0); ALBUMIN/GLOBULIN RATIO 1.1 (1.0-2.7); ALKALINE PHOSPHATASE 66 U/L (46-116); ASPARTATE AMINO TRANSFERASE 12 U/L (15-37); BILIRUBIN,TOTAL 0.2 MG/DL (0.2-1.0)
[2018-04-17 19:29] VITALS: BP 119/73
== END 2018-04-17 19:31 | disposition home or self-care (01) ==
LOC: EMR 18:40
DX: E11.65 Type 2 diabetes mellitus with hyperglycemia (principal); I10 Essential (primary) hypertension; J44.9 Chronic obstructive pulmonary disease, unspecified; Z86.73 Personal history of transient ischemic attack (TIA), and cerebral infarction without residual deficits
CPT/HCPCS: 36415; 80053; 81003; 83690; 96374; 96375; 99283

== ENCOUNTER 2018-07-29 18:36 | Inpatient (IN) | payer MEDICARE, OTHER ==
[~2018-07-29] VITALS: Ht 180.3 cm; Wt 116.1 kg
[~2018-07-29 18:36] MED LIST changes: +ALBUTEROL SULF8.5 GM INH; +PREDNISONE20 MG ORAL
--- NOTE | 2018-07-29 18:47 | Emergency Room Report ---
History of Present Illness General Chief Complaint: To Be Triaged Source: Patient Present Illness HPI 37-year-old male with a history of seizure disorder on Depakote, hypertension, diabetes, tobacco use presents with left-sided weakness and mild dysarthria for one week. He reports he is not sure the date of his started, but does report it was definitely before the weekend, and today is . He reports he waited until his doctor's appointment today, and so his doctor Aniceto Sepulveda. Patient is also on quetiapine and escitalopram. Allergies: Coded Allergies: No Known Allergies (Unverified , 02/06/15) Patient History Past Medical History: see triage record Social History: Reports: smoking Reviewed Nursing Documentation: PMH: Agreed; PSxH: Agreed Nursing Documentation-PMH Hx Cardiac Problems: Yes Hx Hypertension: Yes Hx COPD: Yes Hx Diabetes: Yes Hx Cancer: No Hx Gastrointestinal Problems: Yes Hx Neurological Problems: Yes - BACK & NECK SURGERY Hx Cerebrovascular Accident: Yes Hx Peripheral Neuropathy: Yes Hx Head Trauma: Yes Hx Dizziness: Yes Hx Weakness: Yes Review of Systems All Other Systems: negative except mentioned in HPI Physical Exam Sp02 EP Interpretation: reviewed, normal General Appearance: no apparent distress, alert, non-toxic Head: normocephalic Eyes: bilateral eye normal inspection, bilateral eye PERRL, bilateral eye EOMI ENT: normal ENT inspection, hearing grossly normal, normal pharynx, no angioedema, normal voice, moist mucus membranes Neck: normal inspection, full range of motion, supple, supple/symm/no masses Respiratory: chest non-tender, lungs clear, normal breath sounds, chest symmetrical, palpation of chest normal Cardiovascular #1: normal peripheral pulses, regular rate, rhythm, no JVD, no murmur, no rub Cardiovascular #2: 2+ radial (R), 2+ radial (L) Gastrointestinal: normal inspection, non tender, soft, no mass, no guarding, no rebound Rectal: deferred Genitourinary: normal inspection, no CVA tenderness Musculoskeletal: back normal, gait/station normal, normal range of motion, non- tender, no calf tenderness Neurologic: alert, oriented x3, responsive, state's attorney III-XII nml as tested - L face with decreased sensation, motor strength/tone normal - decreased strength LUE and LLE, sensory intact - diminished to sharp sensation in LUE and LLE, speech normal, other - antalgic gait Psychiatric: judgement/insight normal, memory normal, mood/affect normal Skin: normal color, no rash, warm/dry, normal turgor Lymphatic: no adenopathy Medical Decision Making Diagnostic Impression: Primary Impression: CVA (cerebral vascular accident) ER Course Patient with L sided deficits, but symptoms for ~1 week, last known normal at least 5 days ago therefore patient is not a tPA or neurointerventional candidate. Sent by Dr. Aniceto Sepulveda, will admit for possible CVA workup. Given aspirin, admitted to Aniceto Sepulveda. EKG Diagnostic Results EKG Time: 18:42 EP Interpretation: no st-t changes, no twi Rate: normal Rhythm: NSR ST Segments: no acute changes ASA given to the pt in ED: Yes Rhythm Strip Diag. Results Rhythm Strip Time: 18:57 EP Interpretation: yes Rate: 95 Rhythm: NSR, no PVC's, no ectopy Chest X-Ray Diagnostic Results Chest X-Ray Diagnostic Results : Chest X-Ray Ordered: Yes # of Views/Limited/Complete: 1 View Indication: Other - cva EP Interpretation: Yes Interpretation: no consolidation, no effusion, no pneumothorax, no acute cardiopulmonary disease Impression: No acute disease Electronically Signed by: Manuel Medina MD CT/MRI/US Diagnostic Results CT/MRI/US Diagnostic Results : Imaging Test Ordered: ct head Impression Per Dr. David Minor, no acute hemorrhage, mass effect or edema, no large cortical infarct seen. Status post suboccipital craniectomy Disposition: ADMITTED INPATIENT Admit Decision Time: 18:58 Condition: Stable MANUEL MEDINA M.D Jul 29, 2018 18:47
[2018-07-29 18:50] VITALS: BP 138/78
[2018-07-29] MEDS ORDERED: ASPIR 8181 MG ORAL (19:02)
[2018-07-29] MEDS ORDERED: LEXAPRO10 MG ORAL (19:02)
[2018-07-29] MEDS ORDERED: METOPROLOL SUCC25 MG ORAL (19:02)
[2018-07-29 19:27] LABS: BASOPHILS % (AUTO) 1.3 % (0.0-2.0); EOSINOPHILS % (AUTO) 1.9 % (0.0-3.0); HEMOGLOBIN 14.5 G/DL (14.2-18.0); LYMPHOCYTES % (AUTO) 31.1 % (20.0-45.0); MEAN CORPUSCULAR VOLUME 86 FL (80-99); MONOCYTES % (AUTO) 7.7 % (1.0-10.0); NEUTROPHILS % (AUTO) 58.1 % (45.0-75.0); PLATELET COUNT 205 K/UL (150-450); RED BLOOD COUNT 4.77 M/UL (4.70-6.10); RED CELL DISTRIBUTION WIDTH 12.2 % (11.6-14.8); WHITE BLOOD COUNT 9.5 K/UL (4.8-10.8)
[2018-07-29 19:29] LABS: INR 0.9 (0.9-1.1)
[2018-07-29 19:32] LABS: ANION GAP 12 mmol/L (5-15); BLOOD UREA NITROGEN 11 mg/dL (7-18); CALCIUM 8.6 MG/DL (8.5-10.1); CARBON DIOXIDE 23 MMOL/L (21-32); CHLORIDE 105 MMOL/L (98-107); CREATININE 0.9 MG/DL (0.55-1.30); POTASSIUM 3.8 MMOL/L (3.5-5.1); SODIUM 140 MMOL/L (136-145)
[2018-07-29 19:37] LABS: ALANINE AMINOTRANSFERASE 49 U/L (12-78); ALBUMIN 3.7 G/DL (3.4-5.0); ALBUMIN/GLOBULIN RATIO 1.3 (1.0-2.7); ALKALINE PHOSPHATASE 70 U/L (46-116); ASPARTATE AMINO TRANSFERASE 22 U/L (15-37); BILIRUBIN,TOTAL 0.6 MG/DL (0.2-1.0); CHOLESTEROL 119 MG/DL (< 200); HDL CHOLESTEROL 29 MG/DL (40-60); TRIGLYCERIDES 174 MG/DL (30-150)
[2018-07-29 19:56] LABS: APPEARANCE,URINE CLEAR; BILIRUBIN, URINE NEGATIVE (NEGATIVE); GLUCOSE, URINE (UA) NEGATIVE (NEGATIVE); KETONES,URINE 1+ (NEGATIVE); LEUKOCYTE ESTERASE ,URINE 1+ (NEGATIVE); NITRITE,URINE NEGATIVE (NEGATIVE); PH,URINE 6.5 (4.5-8.0); PROTEIN,URINE NEGATIVE (NEGATIVE); UROBILINOGEN,URINE 4 MG/DL (0.0-1.0)
[2018-07-29 20:02] LABS: COLOR,URINE YELLOW
[2018-07-29] MEDS ORDERED: D5 1/2NS 1,000 ML IV SCH (20:52)
[2018-07-29] MEDS ORDERED: Nitroglycerin Subl 0.4mg tab SL PRN (21:00)
[2018-07-29] MEDS ORDERED: Promethazine/Codeine 5ml UD ORAL PRN (21:00)
[2018-07-29] MEDS ORDERED: Albuterol/Ipratropium 3ml neb HHN PRN (21:00)
[2018-07-29] MEDS ORDERED: LORazepam Inj 2mg/ml 1ml IV PRN (21:00)
[2018-07-29] MEDS ORDERED: Mylanta II UD 30ml ORAL PRN (21:00)
[2018-07-29] MEDS ORDERED: Depakote 500mg tab ORAL SCH (21:00)
[2018-07-29] MEDS ORDERED: QUEtiapine 200mg tab ORAL SCH (21:00)
[2018-07-29] MEDS ORDERED: Miralax 17gm pkt ORAL PRN (21:00)
[2018-07-29 22:00] VITALS: BP 106/64
[2018-07-30] VITALS: BP 115/72
[2018-07-30] MEDS: Heparin 5000 units/ml inj SUBQ SCH ×3 (00:07→21:34)
[2018-07-30] MEDS: Morphine Sulfate 2mg/ml Inj IVP PRN ×6 (00:10→22:35)
[2018-07-30 04:00] VITALS: BP 98/59
[2018-07-30 05:32] LABS: INR 0.9 (0.9-1.1)
[2018-07-30 05:41] LABS: AMMONIA 46 umol/L (11-32); ANION GAP 5 mmol/L (5-15); BLOOD UREA NITROGEN 10 mg/dL (7-18); CALCIUM 8.3 MG/DL (8.5-10.1); CARBON DIOXIDE 28 MMOL/L (21-32); CHLORIDE 107 MMOL/L (98-107); CREATININE 0.9 MG/DL (0.55-1.30); POTASSIUM 3.4 MMOL/L (3.5-5.1); SODIUM 140 MMOL/L (136-145)
[2018-07-30 05:53] LABS: ALANINE AMINOTRANSFERASE 42 U/L (12-78); ALBUMIN 3.2 G/DL (3.4-5.0); ALBUMIN/GLOBULIN RATIO 1.1 (1.0-2.7); ALKALINE PHOSPHATASE 61 U/L (46-116); ASPARTATE AMINO TRANSFERASE 19 U/L (15-37); BILIRUBIN,TOTAL 0.8 MG/DL (0.2-1.0)
[2018-07-30 07:18] LABS: BASOPHILS % (AUTO) 1.1 % (0.0-2.0); EOSINOPHILS % (AUTO) 4.7 % (0.0-3.0); HEMATOCRIT 40.2 % (42.0-52.0); HEMOGLOBIN 14.4 G/DL (14.2-18.0); LYMPHOCYTES % (AUTO) 16.7 % (20.0-45.0); MEAN CORPUSCULAR VOLUME 97 FL (80-99); MONOCYTES % (AUTO) 9.9 % (1.0-10.0); NEUTROPHILS % (AUTO) 67.6 % (45.0-75.0); PLATELET COUNT 206 K/UL (150-450); RED BLOOD COUNT 4.16 M/UL (4.70-6.10); RED CELL DISTRIBUTION WIDTH 11.6 % (11.6-14.8); WHITE BLOOD COUNT 5.3 K/UL (4.8-10.8)
[2018-07-30 08:00] VITALS: BP 101/62
--- NOTE | 2018-07-30 08:39 | Diagnostic Imaging Report ---
Indication: Seizure disorder, left-sided weakness and mild dysarthria for one week Technique: Continuous helical CT scanning of the head was performed without intravenous contrast material. Axial and coronal 5 mm sections were generated. Radiation dose was minimized using automated exposure control Dose: Total Dose Length Product - DLP 1414.[address] Dose Index - CTDIvol(s) 70.38 mGy. Comparison: none Findings: The ventricular system is normal in size and configuration. There is no shift of midline structures. No abnormal extra-axial fluid collections are noted. There is no evidence of intracerebral bleeding. No other abnormal high or low density areas are noted within the brain. Normal smith-white differentiation. Visualized orbits and sinuses are unremarkable. There is evidence of prior suboccipital craniectomy.. Impression: Evidence of prior suboccipital craniectomy Negative for acute intracranial bleed or mass effect This agrees with the preliminary interpretation provided overnight by Dr. Minor The CT scanner at [facility] is accredited by the [employer] and the scans are performed using protocols designed to limit radiation exposure to as low as reasonably achievable to attain images of sufficient resolution adequate for diagnostic evaluation.
[2018-07-30] MEDS ORDERED: Aspirin EC 81mg tab ORAL SCH (09:00)
[2018-07-30] MEDS ORDERED: Metoprolol Succinate XL 25mg tab ORAL SCH (09:00)
[2018-07-30] MEDS ORDERED: Pneumococcal Vaccine 25mcg/0.5ml IM ONE (09:00)
[2018-07-30] MEDS ORDERED: Depakote 500mg tab ORAL SCH ×3 (09:00→21:00)
--- NOTE | 2018-07-30 10:51 | Consultation ---
History of Present Illness General Date patient seen: Jul 30, 2018 Chief Complaint: Stroke Symptoms Present Illness HPI 37-year-old male with a history of seizure disorder on Depakote ( not taking), hypertension, tobacco use presents with left-sided weakness and mild dysarthria for one week. He reports he is not sure the date of his started. He reports he waited until his doctor's appointment, who sent him to [facility] . Pt was suppose to take Depakote, which he couldn't buy. His girlfriend stated that the attacks look like seizure activity. Allergies: Coded Allergies: HALOPERIDOL (Verified Allergy, Unknown, 07/30/18) Medication History Scheduled Aspirin* (Aspir 81*), 81 MG ORAL DAILY, (Reported) Divalproex Sodium* (Depakote*), 500 MG PO Q12HR, (Reported) Escitalopram Oxalate* (Lexapro*), 10 MG ORAL DAILY, (Reported) Metoprolol Succinate* (Metoprolol Succinate*), 25 MG ORAL Q12HR, (Reported) Quetiapine Fumarate* (Seroquel*), 200 MG ORAL BEDTIME, (Reported) Discontinued Medications Albuterol Sulfate* (Albuterol Sulfate Mdi*), 2 PUFF INH Q4H PRN for cough/ wheezing Discontinued Reason: Pt stopped taking med Insulin Aspart (Novolog Flexpen), 30 SQ TID, (Reported) Discontinued Reason: Pt stopped taking med Insulin Detemir (Levemir), 30 SUBQ BID, (Reported) Discontinued Reason: Pt stopped taking med Lisinopril (Lisinopril*), 10 MG ORAL DAILY, (Reported) Discontinued Reason: Pt stopped taking med Metformin Hcl* (Metformin Hcl*), 500 MG ORAL TIDAC, (Reported) Discontinued Reason: Pt stopped taking med Olanzapine* (Zyprexa*), 2.5 MG ORAL DAILY, (Reported) Discontinued Reason: Pt stopped taking med Prednisone* (Prednisone*), 60 MG ORAL DAILY Discontinued Reason: Pt stopped taking med Pregabalin* (Lyrica*), 75 MG ORAL THREE TIMES A DAY, (Reported) Discontinued Reason: Pt stopped taking med Patient History Healthcare decision maker Resuscitation status Full Code Advanced Directive on File No Past Medical/Surgical History Past Medical/Surgical History: (1) COPD (chronic obstructive pulmonary disease) (2) HTN (hypertension) (3) Psychosomatic disorder (4) Anxiety (5) Diabetes mellitus (6) Morbid obesity with BMI of 40.0-44.9, adult (7) Opioid dependence (8) Peripheral neuropathy Review of Systems All Other Systems: negative except mentioned in HPI Physical Exam General Appearance: WD/WN, no apparent distress Lines, tubes and drains: peripheral HEENT: normocephalic, atraumatic Neck: non-tender, normal alignment Respiratory/Chest: chest wall non-tender, lungs clear Cardiovascular/Chest: normal peripheral pulses Abdomen: normal bowel sounds Extremities: normal range of motion Last 24 Hour Vital Signs Date Time Temp Pulse Resp B/P (MAP) Pulse Ox O2 Delivery O2 Flow Rate FiO2 07/30/18 09:00 76 101/62 07/30/18 08:00 98.0 76 22 101/62 (75) 97 98.0 07/30/18 04:00 97.3 74 23 98/59 (72) 97 97.3 07/30/18 04:00 74 07/30/18 00:30 74 07/30/18 00:03 92 20 Room Air 07/30/18 00:00 97.5 80 24 115/72 (86) 97 97.5 07/29/18 23:30 Room Air 07/29/18 23:25 98.7 88 20 106/64 99 Room Air 98.7 07/29/18 22:00 98.7 88 20 106/64 99 Room Air 98.7 07/29/18 18:50 98.8 95 23 138/78 99 Room Air 98.8 07/29/18 18:44 98.8 103 23 138/78 99 Room Air 98.8 Intake and Output 07/29/18 07/30/18 19:00 07:00 Intake Total 400 ml Output Total 150 ml Balance 250 ml Intake Oral 100 ml IV Total 300 ml Output Urine Total 150 ml # Voids 2 Laboratory Tests Test 07/29/18 18:40 07/29/18 19:35 07/30/18 05:04 07/30/18 06:40 White Blood Count 9.5 K/UL (4.8-10.8) 5.3 K/UL (4.8-10.8) Red Blood Count 4.77 M/UL (4.70-6.10) 4.16 M/UL (4.70-6.10) L Hemoglobin 14.5 G/DL (14.2-18.0) 14.4 G/DL (14.2-18.0) Hematocrit 41.0 % (42.0-52.0) L 40.2 % (42.0-52.0) L Mean Corpuscular Volume 86 FL (80-99) 97 FL (80-99) # Mean Corpuscular Hemoglobin 30.3 PG (27.0-31.0) 34.6 PG (27.0-31.0) H Mean Corpuscular Hemoglobin Concent 35.3 G/DL (32.0-36.0) 35.8 G/DL (32.0-36.0) Red Cell Distribution Width 12.2 % (11.6-14.8) 11.6 % (11.6-14.8) Platelet Count 205 K/UL (150-450) 206 K/UL (150-450) Mean Platelet Volume 9.5 FL (6.5-10.1) 9.4 FL (6.5-10.1) Neutrophils (%) (Auto) 58.1 % (45.0-75.0) 67.6 % (45.0-75.0) Lymphocytes (%) (Auto) 31.1 % (20.0-45.0) 16.7 % (20.0-45.0) L Monocytes (%) (Auto) 7.7 % (1.0-10.0) 9.9 % (1.0-10.0) Eosinophils (%) (Auto) 1.9 % (0.0-3.0) 4.7 % (0.0-3.0) H Basophils (%) (Auto) 1.3 % (0.0-2.0) 1.1 % (0.0-2.0) Prothrombin Time 9.7 SEC (9.30-11.50) 9.9 SEC (9.30-11.50) Prothromb Time International Ratio 0.9 (0.9-1.1) 0.9 (0.9-1.1) Activated Partial Thromboplast Time 28 SEC (23-33) 21 SEC (23-33) L Sodium Level 140 MMOL/L (136-145) 140 MMOL/L (136-145) Potassium Level 3.8 MMOL/L (3.5-5.1) 3.4 MMOL/L (3.5-5.1) L Chloride Level 105 MMOL/L (98-107) 107 MMOL/L (98-107) Carbon Dioxide Level 23 MMOL/L (21-32) 28 MMOL/L (21-32) Anion Gap 12 mmol/L (5-15) 5 mmol/L (5-15) Blood Urea Nitrogen 11 mg/dL (7-18) 10 mg/dL (7-18) Creatinine 0.9 MG/DL (0.55-1.30) 0.9 MG/DL (0.55-1.30) Estimat Glomerular Filtration Rate > 60 mL/min (>60) > 60 mL/min (>60) Glucose Level 135 MG/DL (74-106) H 113 MG/DL (74-106) H Calcium Level 8.6 MG/DL (8.5-10.1) 8.3 MG/DL (8.5-10.1) L Total Bilirubin 0.6 MG/DL (0.2-1.0) 0.8 MG/DL (0.2-1.0) Aspartate Amino Transf (AST/SGOT) 22 U/L (15-37) 19 U/L (15-37) Alanine Aminotransferase (ALT/SGPT) 49 U/L (12-78) 42 U/L (12-78) Alkaline Phosphatase 70 U/L (46-116) 61 U/L (46-116) Troponin I 0.004 ng/mL (0.000-0.056) Total Protein 6.5 G/DL (6.4-8.2) 6.1 G/DL (6.4-8.2) L Albumin 3.7 G/DL (3.4-5.0) 3.2 G/DL (3.4-5.0) L Globulin 2.8 g/dL 2.9 g/dL Albumin/Globulin Ratio 1.3 (1.0-2.7) 1.1 (1.0-2.7) Triglycerides Level 174 MG/DL (30-150) H Cholesterol Level 119 MG/DL (< 200) LDL Cholesterol 64 mg/dL (<100) HDL Cholesterol 29 MG/DL (40-60) L Cholesterol/HDL Ratio 4.1 (3.3-4.4) Valproic Acid (Depakene) Level 53 MCG/ML (50-100) Urine Color Yellow Urine Appearance Clear Urine pH 6.5 (4.5-8.0) Urine Specific [place] 1.015 (1.005-1.035) Urine Protein Negative (NEGATIVE) Urine Glucose (UA) Negative (NEGATIVE) Urine Ketones 1+ (NEGATIVE) H Urine Blood Negative (NEGATIVE) Urine Nitrite Negative (NEGATIVE) Urine Bilirubin Negative (NEGATIVE) Urine Urobilinogen 4 MG/DL (0.0-1.0) H Urine Leukocyte Esterase 1+ (NEGATIVE) H Urine RBC 0-2 /HPF (0 - 0) H Urine WBC 0-2 /HPF (0 - 0) Urine Squamous Epithelial Cells None /LPF (NONE/OCC) Urine Amorphous Sediment Few /LPF (NONE) H Urine Bacteria Few /HPF (NONE) Ammonia 46 umol/L (11-32) H Thyroid Stimulating Hormone (TSH) 2.267 uiU/mL (0.358-3.740) Height (Feet): 5 Height (Inches): 11.00 Weight (Pounds): 256 Medications Current Medications Medications (Trade) Dose Ordered Sig/Sofia Route PRN Reason Start Time Stop Time Status Last Admin Dose Admin Acetaminophen (Tylenol) 650 mg Q4H PRN ORAL fever 07/29/18 21:00 08/28/18 20:59 Al Hydroxide/Mg Hydroxide (Mylanta II) 30 ml Q6H PRN ORAL dyspepsia 07/29/18 21:00 08/28/18 20:59 Albuterol/ Ipratropium (Albuterol/ Ipratropium) 3 ml Q4H PRN HHN Shortness of Breath 07/29/18 21:00 08/03/18 20:59 Aspirin (Ecotrin) 81 mg DAILY ORAL 07/30/18 09:00 08/29/18 08:59 07/30/18 08:59 Clonidine HCl (Catapres Tab) 0.1 mg Q4H PRN ORAL For High Blood Pressure 07/29/18 21:00 08/28/18 20:59 Dextrose (Dextrose 50%) 25 ml Q30M PRN IV Hypoglycemia 07/29/18 21:00 08/28/18 20:59 Dextrose (Dextrose 50%) 50 ml Q30M PRN IV Hypoglycemia 07/29/18 21:00 08/28/18 20:59 Divalproex Sodium (Depakote) 500 mg EVERY 12 HOURS ORAL 07/30/18 10:45 08/29/18 10:44 UNV Divalproex Sodium (Depakote) 500 mg Q12HR ORAL 07/30/18 09:00 08/28/18 20:59 07/30/18 08:59 Escitalopram Oxalate (Lexapro) 10 mg DAILY ORAL 07/30/18 09:00 08/29/18 08:59 07/30/18 08:59 Heparin Sodium (Porcine) (Heparin 5000 units/ml) 5,000 units EVERY 12 HOURS SUBQ 07/29/18 21:00 08/28/18 20:59 07/30/18 09:08 Lorazepam (Ativan 2mg/ml 1ml) 0.5 mg Q4H PRN IV For Anxiety 07/29/18 21:00 08/05/18 20:59 Metoprolol Succinate (Toprol XL) 25 mg Q12HR ORAL 07/30/18 09:00 08/29/18 08:59 07/30/18 09:00 Morphine Sulfate (Morphine Sulfate) 1 mg Q4H PRN IVP For Pain 7-10 07/29/18 21:00 08/05/18 20:59 07/30/18 09:01 Nitroglycerin (Ntg) 0.4 mg Q5M X 3 DOSES PRN SL Prn Chest Pain 07/29/18 21:00 08/28/18 20:59 Ondansetron HCl (Zofran) 4 mg Q6H PRN IVP Nausea & Vomiting 07/29/18 21:00 08/28/18 20:59 07/30/18 00:07 Polyethylene Glycol (Miralax) 17 gm HSPRN PRN ORAL Constipation 07/29/18 21:00 08/28/18 20:59 Promethazine HCl/ Codeine (Phenergan with Codeine) 5 ml Q4H PRN ORAL For Cough 07/29/18 21:00 08/28/18 20:59 Quetiapine Fumarate (SEROquel) 200 mg BEDTIME ORAL 07/29/18 21:00 08/28/18 20:59 07/30/18 00:07 Temazepam (Restoril) 15 mg HSPRN PRN ORAL Insomnia 07/29/18 21:00 08/05/18 20:59 Assessment/Plan Problem List: (1) Uncontrolled seizures ICD Codes: R56.9 - Unspecified convulsions SNOMED: 43456464 (2) Noncompliance ICD Codes: Z91.19 - Patient's noncompliance with other medical treatment and regimen SNOMED: 3720328 (3) COPD (chronic obstructive pulmonary disease) ICD Codes: J44.9 - Chronic obstructive pulmonary disease, unspecified SNOMED: 62025970 (4) HTN (hypertension) ICD Codes: I10 - Essential (primary) hypertension SNOMED: 63181785 (5) Psychosomatic disorder ICD Codes: F45.9 - Somatoform disorder, unspecified SNOMED: 17815274 (6) Anxiety ICD Codes: F41.9 - Anxiety disorder, unspecified; Z68.41 - Body mass index (BMI ) 40.0-44.9, adult SNOMED: 32017667 Assessment/Plan restart Depakote pt/ot neuro evaluation monitor BP check electrolytes Lashanda Pham MD Jul 30, 2018 10:51
--- NOTE | 2018-07-30 11:22 | Diagnostic Imaging Report ---
Indication: Chest pain Technique: One view of the chest Comparison: 06/23/2018 Findings: Lungs and pleural spaces are clear. Heart size is normal. No significant change Impression: No acute process
[2018-07-30] MEDS ORDERED: NovoLOG Insulin Flexpen SUBQ SCH (11:30)
[2018-07-30 12:00] VITALS: BP 110/64
--- NOTE | 2018-07-30 14:00 | Consultation ---
DATE OF CONSULTATION: 07/30/2018 CONSULTING PHYSICIAN: Charmaine Victor M.D. HISTORY OF PRESENT ILLNESS: This is a 37-year-old male patient with cerebrovascular disease. He continues to have some depression, confusion, mood lability. He has got no logical plan for his own self-care. He has got feelings of helplessness, hopelessness, low energy, poor appetite, and loss of interest in activity. That is why, he does require daily psychiatric consultation. He has got some mood lability, confusion, and disorganized thought process secondary to stress of his medical illness, but this patient came into the hospital secondary to cerebrovascular accident. He does have confusion, disorganized thought process, and mood lability. The patient states he does have some mood lability, because his mood lability has worsened secondary to stress of his medical illness, his attending physician has requested daily psychiatric consultation. MEDICAL PROBLEMS: He has a history of hypertension, COPD, obesity, status post cerebrovascular accident. ALLERGIES: He has allergies to Haldol. PSYCHOTROPIC MEDICATIONS: On admission, Seroquel 200 mg at bedtime, Depakote at a dose of 500 mg twice a day, and Lexapro 10 mg daily. SUBSTANCE ABUSE HISTORY: No recent ETOH, drug, and alcohol use recently. FAMILY PSYCHIATRIC HISTORY: Denies. PAIN ASSESSMENT: 0/10 pain. DEVELOPMENTAL PROBLEMS: Denies any known developmental problems. SOCIAL HISTORY: Financially supported by [employer] and Medicare. MENTAL STATUS EXAMINATION: This is a 37-year-old male. His appearance is disheveled. Attitude, irritable and agitated. Affect, guarded and restricted. Intellect poor. Mood depressed and anxious. Motor activity, psychomotor agitation. Attention span is poor. Orientation x2. Speech is low volume and slurred. Thought process, disorganized and logical. Thought content, slight auditory hallucinations, paranoid delusions, and racing thoughts. Insight and judgment is poor. Short-term memory, 3/3 were recalled after 5 minutes delay with good short-term memory. Long-term memory is intact based on the knowledge of long-term events in his life such as high school that he went to. DIAGNOSES: 1. Schizoaffective, bipolar type. 2. Medical includes seizure disorder, lower extremity weakness, status post CVA, psychosocial stressors, financial. PLAN: For now, I am going to continue this patient on Depakote 500 mg twice a day to stabilize his mood, Seroquel 200 mg at bedtime for psychosis, Lexapro 10 mg daily, and Ativan as needed, which should be a dose of 0.5 mg every four hours IV as needed for anxiety and he will continue to be followed by Psychiatry throughout hospital course. Chart reviewed. Discussed staff. Seen and assessed at bedside. . Also provided 20 minutes of cognitive behavior therapy. My session today with the patient again 20 minutes of cognitive behavior therapy to help the patient identify his automatic negative thoughts and help him to convert the automatic negative thoughts to more positive thoughts to reduce depression and anxiety. A 20 minutes of cognitive behavioral therapy. Charmaine Victor M.D. DR: MARY JOB#: [id number] CC:
--- NOTE | 2018-07-30 14:56 | Consultation ---
Consult Note Consult Note [id number] Ellis Contreras MD Jul 30, 2018 14:56
[2018-07-30] MEDS ORDERED: Albuterol/Ipratropium 3ml neb HHN PRN (15:30)
[2018-07-30] MEDS ORDERED: LORazepam Inj 2mg/ml 1ml IV PRN (15:30)
[2018-07-30] MEDS ORDERED: Mylanta II UD 30ml ORAL PRN (15:30)
[2018-07-30] MEDS ORDERED: Nitroglycerin Subl 0.4mg tab SL PRN (15:45)
[2018-07-30 16:00] VITALS: BP 120/72
[2018-07-30] MEDS ORDERED: Promethazine/Codeine 5ml UD ORAL PRN (16:00)
[2018-07-30] MEDS ORDERED: Gadavist 7.5mMol/7.5ml vial IV PRN (16:16)
--- NOTE | 2018-07-30 16:41 | Consultation ---
Consult Note Consult Note NEUROLOGY CONSULTATION: Full note dictated #[id number] 37 y/o, RH, CM with long H/O Obesity, BAD, HTN, DM, COPD, tobacco abuse, seizures, strokes - the symptoms of which he cannot remember. He was hospitalized on 07/29/18 for speech problems, increased left sided weakness, and "seizures" because he had run out of his Depakote. ON EXAM: Problems with orientation, memory, HCF, Language. Give way weakness on left side. Globally absent DTRs. Unable to walk for more than a few steps as the left leg collapses. IMPRESSION: 1. BAD, HTN, DM, Smoking, Strokes, Seizures. 2. Seizure disorder of ? type. 3. Unfortunately embellishing amount of left sided weakness. REC: Continue Depakote for Sz prophylaxis. Check trough VA level MRI of brain EEG Tanna Brady M.D., M.S.P.H. TANNA BRADY Jul 30, 2018 16:41
[2018-07-30] MEDS: NovoLOG Insulin Flexpen SUBQ SCH ×2 (17:12→21:00)
--- NOTE | 2018-07-30 19:30 | Consultation ---
DATE OF CONSULTATION: 07/30/2018 NOTE: "POOR AUDIO QUALITY" INFECTIOUS DISEASES CONSULTATION CONSULTING PHYSICIAN: Ellis Contreras M.D. REFERRING PHYSICIAN: Aniceto Sepulveda D.O. REASON FOR CONSULTATION: Evaluation of the patient for gastroenteritis. HISTORY OF PRESENT ILLNESS: The patient is a 37-year-old male with multiple medical problems, who was transferred to this medical center with slurred speech. The patient has multiple medical problems, who was living in the [facility] and because there was slurred speech and letharginess, he was transferred to this medical center. The patient has history of abdominal pain in the upper abdomen associated with diarrhea. The patient did not have any nausea or vomiting. Diarrhea has resolved. Infectious Disease consultation has been requested for further evaluation of the patient's antibiotic management. PAST MEDICAL HISTORY: 1. Seizure disorder. 2. Hypertension. 3. CVA. 4. History of obesity. 5. History of back surgery. 6. Diabetes. 7. Anxiety. ALLERGIES: To haloperidol. FAMILY HISTORY: Not contributing. REVIEW OF SYSTEMS: A 10-point review was done, except what was mentioned above has been negative. MEDICATIONS: Currently off of antibiotics. PHYSICAL EXAMINATION: VITAL SIGNS: Temperature 97.3, pulse 66, respiratory rate 18, blood pressure 110/64. HEENT: No pale conjuctivae. No icterus. NECK: No lymphadenopathy. CHEST: Clear. HEART: S1 and S2. ABDOMEN: Soft, obese, nontender. EXTREMITIES: No cyanosis at this time. NEUROLOGIC: The patient has some slurred speech. LABORATORY AND DIAGNOSTIC DATA: WBC 5.3, hemoglobin 14, platelets 206,000. UA unremarkable. BUN 10, creatinine 0.8. ALT, AST, and alkaline phosphatase unremarkable. Ammonia 46. Chest x-ray . Head CT is possible craniotomy. ASSESSMENT: The patient is a 37-year-old male with: 1. Gastroenteritis, resolved. 2. Afebrile. 3. Normal WBC. PLAN: 1. We will monitor the patient off of antibiotics. 2. Monitor screening cultures. 3. Monitor CBC. 4. Monitor BMP. 5. If the patient's symptoms worsen, he may develop diarrhea, may send stool for culture and C. difficile. Thank you, Dr. Aniceto Sepulveda, for allowing me to see this patient. I will follow the patient with you during this hospitalization. Ellis Contreras M.D. DR: Praneeth JOB#: [id number] CC:
--- NOTE | 2018-07-30 19:45 | Consultation ---
DATE OF CONSULTATION: 07/30/2018 NEUROLOGY CONSULTATION CONSULTING PHYSICIAN: Dago Brady M.D. REQUESTING PHYSICIAN: Aniceto Sepulveda D.O. HISTORY: Mr. Chucky Chopra is a 37-year-old, right-handed, , gentleman, who has a long history of obesity, bipolar affective disorder, hypertension, diabetes mellitus, chronic obstructive pulmonary disease, tobacco abuse, seizures that are not well described, and strokes that are not well described, who was hospitalized on 07/29/2018 for speech problems, increased left-sided weakness, and seizures, because he had run out of DepPreactte. This consultation was requested to evaluate the patient for a possible new stroke, and in addition, to control his seizures. Since he has been in the hospital, he has improved. He has had no seizures and his strength is getting better. When asked about his seizures, he could not describe them, but his girlfriend tells us that when he has one of his events, he apparently becomes unresponsive for a brief period of time and behaves in an unusual manner again the exact details of which she could not describe. With regards to his strokes, he cannot remember what exactly happened when he had them. PAST MEDICAL HISTORY: Significant for obesity, bipolar affective disorder, hypertension, diabetes mellitus, chronic obstructive pulmonary disease, tobacco abuse, seizures, and strokes. FAMILY HISTORY: Significant for high blood pressure and diabetes mellitus in numerous family members. PERSONAL HISTORY: Home: He lives in a half-way. His fiancee stays in the half-way next to him. 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 Habits: He smokes approximately 1 pack of cigarettes per day and has been doing so since he was in his early teens. He denies the use of alcohol or illicit drugs. PRESENT MEDICATIONS: aspirin 81 mg daily, Lexapro 10 mg daily, Depakote 500 mg q.12 hours, heparin for DVT prophylaxis, metoprolol, MiraLAX, Seroquel 200 mg at bedtime, temazepam, morphine sulfate p.r.n., insulin, Phenergan With Codeine p.r.n., Zofran p.r.n., nitroglycerin p.r.n., Tylenol p.r.n., Mylanta p.r.n., clonidine p.r.n., DuoNeb inhaler p.r.n., and lorazepam p.r.n. PHYSICAL EXAMINATION: GENERAL: He is a well-developed, well-nourished, obese, gentleman, lying in bed, in no acute distress. VITAL SIGNS: Pulse 79/ minute, blood pressure 110/64 mmHg, respirations 20/minute, and temperature 97.9 degrees Fahrenheit. HEAD: Normocephalic and atraumatic. EENT: Examination benign. NECK: No neck rigidity was observed. NEUROLOGICAL EXAMINATION: MENTAL STATUS EXAMINATION: He was awake and alert. He was oriented to person, place, and time except for the exact date. He was able to recall 3/3 words immediately, but could only remember 2/3 words in 1 minute and 3 minutes. He was able to remember Presidents Trump and Obama, but could not remember Presidents prior to that. His mathematical skills were impaired except when he used his phone as a calculator. His visuospatial function was also impaired. SPEECH: He had a mild dysarthria. LANGUAGE: He had anomia for low-frequency words. CRANIAL NERVE EXAMINATION: II: The visual wilson were intact on confrontation testing. III, IV & : The external ocular movements were full and the pupils 3 mm in diameter, equal, round, regular, and reactive to light. V: He had normal facial sensations, and the temporales, masseters, and pterygoids functioned normally. VII: He had normal facial expressions and no facial asymmetry. VIII: He was able to hear well bilaterally and had no nystagmus. IX: The palate moved symmetrically on phonation. X: He had no hoarseness of voice. XI: The sternocleidomastoids and trapezii functioned normally. XII: The tongue was in the midline without any fasciculations or atrophy. MOTOR SYSTEM: Tone was normal in all four extremities. Examination of muscle mass revealed no focal wasting. Examination of power revealed G 5/5 power on the right side. On the left side, power was exceedingly difficult to test because he exhibited significant give-way weakness. SENSORY EXAMINATION: He had intact sensations to pinprick, light touch, and graphesthesia. COORDINATION: He performed well on [id number] and [id number] testing on the right side. On the left side, these were performed in a very erratic manner. REFLEXES: 0 at the biceps, triceps, brachioradialis, knees and ankles. The plantar responses were flexor bilaterally. STANCE: He stood up with support. After he had been standing for a few seconds, he exhibited unusual movements of his left leg, which he attributed to weakness. GAIT: He was able to take a few steps, but then exhibited some left leg collapse as a result of which he was made to back up, which he did quite well and sit in bed. DIAGNOSTIC IMPRESSION: 1. Mr. Chucky Chopra is a 37-year-old, right-handed, , gentleman, with a long history of obesity, bipolar affective disorder, hypertension, diabetes mellitus, chronic obstructive pulmonary disease, tobacco abuse, seizures of an unknown type, and strokes of an unknown type, who was hospitalized on 07/29/2018 for speech problems, increased left-sided weakness, and questionable seizures when he had run out of Depakote. 2. On neurological examination at this time, he does demonstrate problems with orientation, recent and remote memory, higher cognitive function, and language. He also exhibits significant give-way weakness on the left side making it impossible to determine the amount of strength on that side. He has globally absent deep tendon reflexes and when he is made to stand and walk, he exhibits left leg collapse. However when he is made to back up, he does that quite well. 3. He did have a CT scan of the brain performed on 07/29/2018 and it revealed findings consistent with suboccipital craniectomy, but no other intracranial pathology was discovered. 4. Laboratory data obtained thus far have revealed a relatively normal CBC, chemistry panel with an elevated blood glucose at 135 when he came in. Relatively normal lipid panel. His valproic acid level was 53 - it is unclear if this was random, trough, or peak level. 5. The patient's history, neurological examination, laboratory data, and imaging studies are most compatible with underlying bipolar affective disorder, hypertension, diabetes mellitus, smoking, strokes, and seizures. It is unclear if the patient's increased left-sided weakness is due to embellishment or due to true weakness. It is also unclear as to what type of seizure disorder he has. RECOMMENDATIONS: 1. Agree with management thus far. 2. Would continue Depakote 500 mg q.12 h. for seizure prophylaxis. 3. We will check a trough valproic acid level. 4. An MRI scan of the brain without and with gadolinium will be ordered to evaluate the patient for intracranial pathology. 5. An EEG will be ordered to evaluate the patient for the type of seizure disorder. 6. The patient should be mobilized rapidly with the help of physical and occupational therapy. Thank you for entrusting me with the care of Mr. Chopra. I shall follow him with you. Dago Brady M.D., M.S.P.H. DR: JACKIE JOB#: [id number]
[2018-07-30 20:00] VITALS: BP 120/67
[2018-07-30] MEDS ORDERED: Miralax 17gm pkt ORAL PRN (21:00)
[2018-07-30] MEDS: QUEtiapine 200mg tab ORAL SCH (21:26)
[2018-07-30] MEDS: Depakote 500mg tab ORAL SCH (21:26)
[2018-07-30] MEDS: Metoprolol Succinate XL 25mg tab ORAL SCH (21:27)
[2018-07-31] VITALS: BP 109/85
[2018-07-31 04:00] VITALS: BP 99/63
[2018-07-31] MEDS: Morphine Sulfate 2mg/ml Inj IVP PRN ×5 (05:21→21:41)
[2018-07-31] MEDS: NovoLOG Insulin Flexpen SUBQ SCH ×4 (06:26→21:43)
[2018-07-31 08:00] VITALS: BP 112/64
--- NOTE | 2018-07-31 08:28 | General Progress Note ---
Assessment/Plan Problem List: (1) The administrative codes within the IMO content you are accessing may have as of 07/26/2018. Please contact your IT Dept/Help Desk and request the latest Regulatory release be installed. IT Dept/Help Desk- Please refer to our FAQ page ([email or web address] or contact O Customer Support at [email or web address] (2) Malnutrition ICD Codes: E46 - Unspecified protein-calorie malnutrition SNOMED: 29434208 (3) CVA (cerebral vascular accident) ICD Codes: I63.9 - Cerebral infarction, unspecified SNOMED: 188332699 (4) COPD exacerbation ICD Codes: J44.1 - Chronic obstructive pulmonary disease with (acute) exacerbation SNOMED: 597422436, 042297032 (5) HTN (hypertension) ICD Codes: I10 - Essential (primary) hypertension SNOMED: 53664913 (6) Anxiety ICD Codes: F41.9 - Anxiety disorder, unspecified; Z68.41 - Body mass index (BMI ) 40.0-44.9, adult SNOMED: 51625765 (7) Diabetes mellitus ICD Codes: E11.9 - Diabetes mellitus SNOMED: 73938710 Status: unchanged Assessment/Plan ot pt diet abx cbc bmp am dc plan snf Subjective Constitutional: Reports: weakness Allergies: Coded Allergies: HALOPERIDOL (Verified Allergy, Unknown, 07/30/18) All Systems: reviewed and negative except above Subjective calm in bed Objective Last 24 Hour Vital Signs Date Time Temp Pulse Resp B/P (MAP) Pulse Ox O2 Delivery O2 Flow Rate FiO2 07/31/18 05:12 82 20 Room Air 21 07/31/18 04:00 98.8 72 21 99/63 (75) 93 98.8 07/31/18 00:00 97.7 76 18 109/85 (93) 95 97.7 07/30/18 21:27 85 120/67 07/30/18 21:00 Room Air 07/30/18 20:00 98.2 85 17 120/67 (84) 95 98.2 07/30/18 16:00 98.3 85 20 120/72 (88) 97 98.3 07/30/18 12:00 97.9 79 20 110/64 (79) 96 97.9 07/30/18 12:00 82 07/30/18 09:00 Room Air 07/30/18 09:00 76 101/62 Intake and Output 07/30/18 07/31/18 19:00 07:00 Intake Total 460 ml 1000 ml Output Total 800 ml 700 ml Balance -340 ml 300 ml Intake Oral 460 ml Other 1000 ml Output Urine Total 800 ml 700 ml Laboratory Tests 07/30/18 19:00: Vitamin D 25-Hydroxy [Pending], 25-Hydroxy Vitamin D2 [Pending], 25-Hydroxy Vitamin D3 [Pending], Rapid Plasma Reagin Non reactive Height (Feet): 5 Height (Inches): 11.00 Weight (Pounds): 256 General Appearance: alert EENT: normal ENT inspection Neck: normal alignment Cardiovascular: normal peripheral pulses, normal rate, regular rhythm Respiratory/Chest: chest wall non-tender, lungs clear, normal breath sounds Abdomen: normal bowel sounds, non tender, soft Extremities: normal inspection Edema: no edema noted Arm (L), no edema noted Arm (R), no edema noted Leg (L), no edema noted Leg (R), no edema noted Pedal (L), no edema noted Pedal (R), no edema noted Generalized Neurologic: responsive, motor weakness Skin: normal pigmentation, warm/dry Aniceto Sepulveda DO Jul 31, 2018 08:28
[2018-07-31] MEDS: Aspirin EC 81mg tab ORAL SCH (08:41)
[2018-07-31] MEDS: Depakote 500mg tab ORAL SCH ×2 (08:41→21:42)
[2018-07-31] MEDS: Metoprolol Succinate XL 25mg tab ORAL SCH ×2 (08:47→21:41)
[2018-07-31] MEDS: Heparin 5000 units/ml inj SUBQ SCH ×2 (08:47→21:00)
[2018-07-31 09:34] LABS: BASOPHILS % (AUTO) 0.8 % (0.0-2.0); EOSINOPHILS % (AUTO) 2.4 % (0.0-3.0); HEMATOCRIT 41.2 % (42.0-52.0); HEMOGLOBIN 14.5 G/DL (14.2-18.0); MEAN CORPUSCULAR VOLUME 86 FL (80-99); NEUTROPHILS % (AUTO) 58.7 % (45.0-75.0); PLATELET COUNT 166 K/UL (150-450); RED CELL DISTRIBUTION WIDTH 12.4 % (11.6-14.8); WHITE BLOOD COUNT 7.4 K/UL (4.8-10.8)
[2018-07-31 10:03] LABS: ANION GAP 11 mmol/L (5-15); BLOOD UREA NITROGEN 14 mg/dL (7-18); CALCIUM 8.8 MG/DL (8.5-10.1); CARBON DIOXIDE 25 MMOL/L (21-32); CHLORIDE 106 MMOL/L (98-107); POTASSIUM 4.2 MMOL/L (3.5-5.1); SODIUM 142 MMOL/L (136-145)
[2018-07-31 12:00] VITALS: BP 111/70
--- NOTE | 2018-07-31 12:02 | Pulmonology Progress Note ---
Assessment/Plan Problems: (1) Uncontrolled seizures (2) Noncompliance (3) COPD (chronic obstructive pulmonary disease) (4) HTN (hypertension) (5) Psychosomatic disorder (6) Anxiety Assessment/Plan no more seizures adjust meds respiratory treatment titrate fio2 to sat of 92% monitor BP f/u psych recommendations. Subjective ROS Limited/Unobtainable: No Constitutional: Reports: no symptoms HEENT: Repors: no symptoms Respiratory: Reports: no symptoms Allergies: Coded Allergies: HALOPERIDOL (Verified Allergy, Unknown, 07/30/18) Objective Last 24 Hour Vital Signs Date Time Temp Pulse Resp B/P (MAP) Pulse Ox O2 Delivery O2 Flow Rate FiO2 07/31/18 09:00 Room Air 07/31/18 08:47 82 112/64 07/31/18 08:00 98.3 82 20 112/64 (80) 94 98.3 07/31/18 05:12 82 20 Room Air 21 07/31/18 04:00 98.8 72 21 99/63 (75) 93 98.8 07/31/18 00:00 97.7 76 18 109/85 (93) 95 97.7 07/30/18 21:27 85 120/67 07/30/18 21:00 Room Air 07/30/18 20:00 98.2 85 17 120/67 (84) 95 98.2 07/30/18 16:00 98.3 85 20 120/72 (88) 97 98.3 Intake and Output 07/30/18 07/31/18 19:00 07:00 Intake Total 460 ml 1000 ml Output Total 800 ml 700 ml Balance -340 ml 300 ml Intake Oral 460 ml Other 1000 ml Output Urine Total 800 ml 700 ml General Appearance: WD/WN HEENT: normocephalic, atraumatic Respiratory/Chest: chest wall non-tender, lungs clear Cardiovascular: normal peripheral pulses, regular rhythm Abdomen: soft, non tender, no organomegaly Genitourinary: normal external genitalia Extremities: no clubbing Skin: no lesions Microbiology Date/Time Source Procedure Growth Status 07/29/18 21:20 Nasal Nares MRSA Culture - Final Staphylococcus Aureus - Mrsa Complete Laboratory Tests 07/30/18 19:00: Vitamin D 25-Hydroxy [Pending], 25-Hydroxy Vitamin D2 [Pending], 25-Hydroxy Vitamin D3 [Pending], Rapid Plasma Reagin Non reactive 10/6/18 09:05: White Blood Count 7.4, Red Blood Count 4.80, Hemoglobin 14.5, Hematocrit 41.2L, Mean Corpuscular Volume 86#, Mean Corpuscular Hemoglobin 30.2, Mean Corpuscular Hemoglobin Concent 35.2, Red Cell Distribution Width 12.4, Platelet Count 166, Mean Platelet Volume 7.8, Neutrophils (%) (Auto) 58.7, Lymphocytes (%) (Auto) 31.0, Monocytes (%) (Auto) 7.0, Eosinophils (%) (Auto) 2.4, Basophils (%) (Auto ) 0.8, Sodium Level 142, Potassium Level 4.2, Chloride Level 106, Carbon Dioxide Level 25, Anion Gap 11, Blood Urea Nitrogen 14, Creatinine 1.0, Estimat Glomerular Filtration Rate > 60, Glucose Level 163H, Calcium Level 8.8, Valproic Acid (Depakene) Level 65 Current Medications Medications (Trade) Dose Ordered Sig/Sofia Route PRN Reason Start Time Stop Time Status Last Admin Dose Admin Acetaminophen (Tylenol) 650 mg Q4H PRN ORAL fever 07/30/18 15:30 08/28/18 15:29 Al Hydroxide/Mg Hydroxide (Mylanta II) 30 ml Q6H PRN ORAL dyspepsia 07/30/18 15:30 08/28/18 15:29 Albuterol/ Ipratropium (Albuterol/ Ipratropium) 3 ml Q4H PRN HHN Shortness of Breath 07/30/18 15:30 08/03/18 15:29 Aspirin (Ecotrin) 81 mg DAILY ORAL 07/31/18 09:00 08/29/18 08:59 07/31/18 08:41 Clonidine HCl (Catapres Tab) 0.1 mg Q4H PRN ORAL For High Blood Pressure 07/30/18 15:30 08/28/18 15:29 Dextrose (Dextrose 50%) 25 ml Q30M PRN IV Hypoglycemia 07/30/18 15:30 08/28/18 15:29 Dextrose (Dextrose 50%) 50 ml Q30M PRN IV Hypoglycemia 07/30/18 15:30 08/28/18 15:29 Divalproex Sodium (Depakote) 500 mg Q12HR ORAL 07/30/18 21:00 08/28/18 20:59 07/31/18 08:41 Escitalopram Oxalate (Lexapro) 10 mg DAILY ORAL 07/31/18 09:00 08/29/18 08:59 07/31/18 08:41 Gadobutrol (Gadavist) 7.5 mmol NOW PRN IV Radiology Procedure 07/30/18 16:16 07/31/18 16:15 Heparin Sodium (Porcine) (Heparin 5000 units/ml) 5,000 units EVERY 12 HOURS SUBQ 07/30/18 21:00 08/28/18 20:59 07/31/18 08:47 Insulin Aspart (NovoLOG) BEFORE MEALS AND HS SUBQ 07/30/18 16:30 08/29/18 11:29 Lorazepam (Ativan 2mg/ml 1ml) 0.5 mg Q4H PRN IV For Anxiety 07/30/18 15:30 08/05/18 15:29 Metoprolol Succinate (Toprol XL) 25 mg Q12HR ORAL 07/30/18 21:00 08/29/18 08:59 07/30/18 21:27 Morphine Sulfate (Morphine Sulfate) 1 mg Q4H PRN IVP For Pain 7-10 07/30/18 18:30 08/05/18 18:29 07/31/18 09:25 Nicotine (Nicoderm) 1 patch Q24H TDERMAL 07/30/18 17:30 08/29/18 17:29 07/30/18 18:29 Nitroglycerin (Ntg) 0.4 mg Q5M X 3 DOSES PRN SL Prn Chest Pain 07/30/18 15:45 08/28/18 20:59 Ondansetron HCl (Zofran) 4 mg Q4H PRN IVP Nausea & Vomiting 07/30/18 21:00 08/29/18 20:59 07/30/18 21:26 Polyethylene Glycol (Miralax) 17 gm HSPRN PRN ORAL Constipation 07/30/18 21:00 08/28/18 20:59 Promethazine HCl/ Codeine (Phenergan with Codeine) 5 ml Q4H PRN ORAL For Cough 07/30/18 16:00 08/28/18 15:59 Quetiapine Fumarate (SEROquel) 200 mg BEDTIME ORAL 07/30/18 21:00 08/28/18 20:59 07/30/18 21:26 Temazepam (Restoril) 15 mg HSPRN PRN ORAL Insomnia 07/30/18 21:00 08/05/18 20:59 Lashanda Pham MD Jul 31, 2018 12:02
--- NOTE | 2018-07-31 14:50 | Neurology Progress Note ---
Interim History Interim History Interim History Mr. Chopra feels better. He has had no further seizures. The MRI of the brain did not reveal any acute pathology. An old left sub-occipital craniectomy and left cerebellar encephalomalacia was seen. The mind is clearer today. He still feels weak on the left and continues to embellish the amount of weakness. Review of Systems Neuro Review of Systems Benign. Objective Physical Exam Last Vital Signs Date Time Temp Pulse Resp B/P (MAP) Pulse Ox O2 Delivery O2 Flow Rate FiO2 07/31/18 09:00 Room Air 07/31/18 08:47 82 112/64 07/31/18 08:00 98.3 20 94 98.3 07/31/18 05:12 21 Laboratory Tests Test 07/30/18 19:00 07/31/18 09:05 Vitamin D 25-Hydroxy Pending 25-Hydroxy Vitamin D2 Pending 25-Hydroxy Vitamin D3 Pending Rapid Plasma Reagin Non reactive (Non Reactive) White Blood Count 7.4 K/UL (4.8-10.8) Red Blood Count 4.80 M/UL (4.70-6.10) Hemoglobin 14.5 G/DL (14.2-18.0) Hematocrit 41.2 % (42.0-52.0) L Mean Corpuscular Volume 86 FL (80-99) # Mean Corpuscular Hemoglobin 30.2 PG (27.0-31.0) Mean Corpuscular Hemoglobin Concent 35.2 G/DL (32.0-36.0) Red Cell Distribution Width 12.4 % (11.6-14.8) Platelet Count 166 K/UL (150-450) Mean Platelet Volume 7.8 FL (6.5-10.1) Neutrophils (%) (Auto) 58.7 % (45.0-75.0) Lymphocytes (%) (Auto) 31.0 % (20.0-45.0) Monocytes (%) (Auto) 7.0 % (1.0-10.0) Eosinophils (%) (Auto) 2.4 % (0.0-3.0) Basophils (%) (Auto) 0.8 % (0.0-2.0) Sodium Level 142 MMOL/L (136-145) Potassium Level 4.2 MMOL/L (3.5-5.1) Chloride Level 106 MMOL/L (98-107) Carbon Dioxide Level 25 MMOL/L (21-32) Anion Gap 11 mmol/L (5-15) Blood Urea Nitrogen 14 mg/dL (7-18) Creatinine 1.0 MG/DL (0.55-1.30) Estimat Glomerular Filtration Rate > 60 mL/min (>60) Glucose Level 163 MG/DL (74-106) H Calcium Level 8.8 MG/DL (8.5-10.1) Valproic Acid (Depakene) Level 65 MCG/ML (50-100) Neurologic Exam Objective PHYSICAL EXAMINATION: GENERAL: He is a well-developed, well-nourished, obese, gentleman, lying in bed, in no acute distress. HEAD: Normocephalic and atraumatic. EENT: Examination benign. NECK: No neck rigidity was observed. NEUROLOGICAL EXAMINATION: MENTAL STATUS EXAMINATION: He was awake and alert. He was oriented to person, place, and time except for the exact date. He was able to recall 3/3 words immediately, but could only remember 2/3 words in 1 minute and 3 minutes. He was able to remember Presidents Trump and Obama, but could not remember Presidents prior to that. His mathematical skills were impaired except when he used his phone as a calculator. His visuospatial function was also impaired. SPEECH: He had a mild dysarthria. LANGUAGE: He had anomia for low-frequency words. CRANIAL NERVE EXAMINATION: II: The visual wilson were intact on confrontation testing. III, IV & : The external ocular movements were full and the pupils 3 mm in diameter, equal, round, regular, and reactive to light. V: He had normal facial sensations, and the temporales, masseters, and pterygoids functioned normally. VII: He had normal facial expressions and no facial asymmetry. VIII: He was able to hear well bilaterally and had no nystagmus. IX: The palate moved symmetrically on phonation. X: He had no hoarseness of voice. XI: The sternocleidomastoids and trapezii functioned normally. XII: The tongue was in the midline without any fasciculations or atrophy. MOTOR SYSTEM: Tone was normal in all four extremities. Examination of muscle mass revealed no focal wasting. Examination of power revealed G 5/5 power on the right side. On the left side, power was exceedingly difficult to test because he exhibited significant give-way weakness. SENSORY EXAMINATION: He had intact sensations to pinprick, light touch, and graphesthesia. COORDINATION: He performed well on [id number] and [id number] testing on the right side. On the left side, these were performed in a very erratic manner. REFLEXES: 0 at the biceps, triceps, brachioradialis, knees and ankles. The plantar responses were flexor bilaterally. STANCE: He stood up with support. After he had been standing for a few seconds , he exhibited unusual movements of his left leg, which he attributed to weakness. GAIT: He was able to take a few steps, but then exhibited some left leg collapse as a result of which he was made to back up, which he did quite well and sit in bed. Impression/Recommendations Diagnostic Impression 1. Mr. Chucky Chopra is a 37-year-old, right-handed, , gentleman, with a long history of obesity, bipolar affective disorder, hypertension, diabetes mellitus, chronic obstructive pulmonary disease, tobacco abuse, seizures of an unknown type, and strokes of an unknown type, who was hospitalized on 07/29/2018 for speech problems, increased left-sided weakness, and questionable seizures when he had run out of [facility]. 2. He feels better. He has had no further seizures. The MRI of the brain did not reveal any acute pathology. An old left sub-occipital craniectomy and left cerebellar encephalomalacia was seen. The mind is clearer today. He still feels weak on the left and continues to embellish the amount of weakness. 3. On neurological examination at this time, he does demonstrate problems with orientation, recent and remote memory, higher cognitive function, and language. He also exhibits significant give-way weakness on the left side making it impossible to determine the amount of strength on that side. He has globally absent deep tendon reflexes and when he is made to stand and walk, he exhibits left leg collapse. However when he is made to back up, he does that quite well. 4. He did have a CT scan of the brain performed on 07/29/2018 and it revealed findings consistent with suboccipital craniectomy, but no other intracranial pathology was discovered. 5. The MRI of the brain done on 07/30/18 did not reveal any acute pathology. An old left sub-occipital craniectomy and left cerebellar encephalomalacia was seen. 6. Laboratory data obtained thus far have revealed a relatively normal CBC, chemistry panel with an elevated blood glucose at 135 when he came in. Relatively normal lipid panel. His valproic acid level was 53 - it is unclear if this was random, trough, or peak level. 7. A repeat trough valproic acid level was ordered for 07/31/18 but unfortunately his level was drawn after he was dosed. The level was 65. 8. The patient's history, neurological examination, laboratory data, and imaging studies are most compatible with underlying bipolar affective disorder, hypertension, diabetes mellitus, smoking, strokes, and seizures. It is unclear if the patient's increased left-sided weakness is due to embellishment or due to true weakness. It is also unclear as to what type of seizure disorder he has. Recommendations 1. Continue present management. 2. Continue Depakote 500 mg q.12 h. for seizure prophylaxis. 3. We will re-order trough valproic acid level. 4. Await EEG to evaluate the patient for the type of seizure disorder. 5. Mobilized rapidly. Tanna Brady M.D., M.S.P.Hayde. TANNA BRADY Jul 31, 2018 14:50
[2018-07-31 16:00] VITALS: BP 112/69
[2018-07-31 20:00] VITALS: BP 123/70
[2018-07-31] MEDS: QUEtiapine 200mg tab ORAL SCH (21:41)
--- NOTE | 2018-07-31 22:30 | Progress Note ---
DATE: 07/31/2018 NOTE: "VERY POOR AUDIO QUALITY/INCOMPREHENSIBLE" SUBJECTIVE: This is a 37-year-old male patient with cerebrovascular accident. The patient is confused and disorganized with mood lability. He has got no logical plan for his own self-care. He has got feelings of helplessness, hopelessness, low energy, poor appetite, and loss of interest in activity. The patient is confused, disorganized, and mood labile. MENTAL STATUS EXAMINATION: This is a 37-year-old male. Appearance is disheveled. Attitude, irritable and agitated. Affect, guarded and restricted. Intellect poor. Mood depressed and anxious. Motor activity, psychomotor agitation. Attention span is poor. Orientation x2. Speech is pressured. Thought process, disorganized and illogical. Thought content, auditory hallucinations and paranoid delusions. Insight and judgment is poor. DIAGNOSIS: Bipolar 2. PLAN: Treat him with Seroquel mg nightly, Depakote 500 mg q.12 hours, Lexapro 10 mg a day, Ativan 0.5 mg every four hours p.r.n. anxiety and agitation. Provided 20 minutes of cognitive behavioral therapy to help him identify automatic negative thoughts and help him to convert the automatic negative thoughts to more positive thoughts to reduce depression and suicidality. Seen and assessed at bedside. 20 minutes of cognitive behavioral therapy provided. Chart reviewed. Discussed with staff. Seen and assessed in his room. Charmaine Victor M.D. DR: MARY JOB#: [id number] CC:
[2018-08-01] VITALS: BP 103/66
[2018-08-01] MEDS: Morphine Sulfate 2mg/ml Inj IVP PRN ×5 (03:30→20:03)
[2018-08-01 04:00] VITALS: BP 115/97
[2018-08-01] MEDS: NovoLOG Insulin Flexpen SUBQ SCH ×4 (06:30→21:00)
[2018-08-01 07:27] LABS: BASOPHILS % (AUTO) 0.7 % (0.0-2.0); EOSINOPHILS % (AUTO) 2.1 % (0.0-3.0); HEMATOCRIT 40.2 % (42.0-52.0); HEMOGLOBIN 14.5 G/DL (14.2-18.0); MEAN CORPUSCULAR VOLUME 84 FL (80-99); MONOCYTES % (AUTO) 8.3 % (1.0-10.0); NEUTROPHILS % (AUTO) 62.9 % (45.0-75.0); PLATELET COUNT 172 K/UL (150-450); RED BLOOD COUNT 4.77 M/UL (4.70-6.10); WHITE BLOOD COUNT 8.8 K/UL (4.8-10.8)
[2018-08-01 07:55] LABS: ANION GAP 9 mmol/L (5-15); BLOOD UREA NITROGEN 12 mg/dL (7-18); CALCIUM 8.4 MG/DL (8.5-10.1); CARBON DIOXIDE 25 MMOL/L (21-32); CHLORIDE 104 MMOL/L (98-107); CREATININE 0.8 MG/DL (0.55-1.30); SODIUM 138 MMOL/L (136-145)
[2018-08-01 08:00] VITALS: BP 125/68
[2018-08-01] MEDS: Aspirin EC 81mg tab ORAL SCH (08:02)
[2018-08-01] MEDS: Depakote 500mg tab ORAL SCH ×2 (08:02→21:33)
[2018-08-01] MEDS: Metoprolol Succinate XL 25mg tab ORAL SCH ×2 (08:02→21:33)
[2018-08-01] MEDS: Heparin 5000 units/ml inj SUBQ SCH ×2 (08:03→21:00)
--- NOTE | 2018-08-01 08:37 | General Progress Note ---
Assessment/Plan Problem List: (1) The administrative codes within the IMO content you are accessing may have as of 07/26/2018. Please contact your IT Dept/Help Desk and request the latest Regulatory release be installed. IT Dept/Help Desk- Please refer to our FAQ page ([email or web address] or contact [facility] Customer Support at [email or web address] (2) Malnutrition ICD Codes: E46 - Unspecified protein-calorie malnutrition SNOMED: 49603450 (3) CVA (cerebral vascular accident) ICD Codes: I63.9 - Cerebral infarction, unspecified SNOMED: 796615547 (4) COPD exacerbation ICD Codes: J44.1 - Chronic obstructive pulmonary disease with (acute) exacerbation SNOMED: 922233446, 558324572 (5) HTN (hypertension) ICD Codes: I10 - Essential (primary) hypertension SNOMED: 68326607 (6) Anxiety ICD Codes: F41.9 - Anxiety disorder, unspecified; Z68.41 - Body mass index (BMI ) 40.0-44.9, adult SNOMED: 28086804 (7) Diabetes mellitus ICD Codes: E11.9 - Diabetes mellitus SNOMED: 09696520 Status: stable, progressing Assessment/Plan ot pt diet abx dc plan snf Subjective Constitutional: Reports: weakness Allergies: Coded Allergies: HALOPERIDOL (Verified Allergy, Unknown, 07/30/18) All Systems: reviewed and negative except above Subjective calm in bed Objective Last 24 Hour Vital Signs Date Time Temp Pulse Resp B/P (MAP) Pulse Ox O2 Delivery O2 Flow Rate FiO2 08/01/18 08:02 82 125/68 08/01/18 04:00 98.6 90 18 115/97 (103) 99 98.6 08/01/18 03:30 98.0 08/01/18 00:00 98.0 83 18 103/66 (78) 95 98.0 07/31/18 21:41 83 123/70 07/31/18 21:00 Room Air 07/31/18 20:05 83 20 Room Air 21 07/31/18 20:00 98.6 88 18 123/70 (87) 99 98.6 07/31/18 16:16 81 20 Room Air 21 07/31/18 16:00 98.4 84 20 112/69 (83) 94 98.4 07/31/18 12:00 99.0 83 18 111/70 (84) 94 99.0 07/31/18 09:00 Room Air 07/31/18 08:47 82 112/64 Intake and Output 07/31/18 08/01/18 19:00 07:00 Intake Total 700 ml 1000 ml Output Total 1600 ml Balance 700 ml -600 ml Intake Oral 700 ml 1000 ml Output Urine Total 1600 ml # Voids 5 3 Laboratory Tests 07/31/18 09:05: White Blood Count 7.4, Red Blood Count 4.80, Hemoglobin 14.5, Hematocrit 41.2L, Mean Corpuscular Volume 86#, Mean Corpuscular Hemoglobin 30.2, Mean Corpuscular Hemoglobin Concent 35.2, Red Cell Distribution Width 12.4, Platelet Count 166, Mean Platelet Volume 7.8, Neutrophils (%) (Auto) 58.7, Lymphocytes (%) (Auto) 31.0, Monocytes (%) (Auto) 7.0, Eosinophils (%) (Auto) 2.4, Basophils (%) (Auto ) 0.8, Sodium Level 142, Potassium Level 4.2, Chloride Level 106, Carbon Dioxide Level 25, Anion Gap 11, Blood Urea Nitrogen 14, Creatinine 1.0, Estimat Glomerular Filtration Rate > 60, Glucose Level 163H, Calcium Level 8.8, Valproic Acid (Depakene) Level 65 07/31/18 19:35: Valproic Acid (Depakene) Level 54 08/01/18 07:10: White Blood Count 8.8, Red Blood Count 4.77, Hemoglobin 14.5, Hematocrit 40.2L, Mean Corpuscular Volume 84, Mean Corpuscular Hemoglobin 30.4, Mean Corpuscular Hemoglobin Concent 36.1H, Red Cell Distribution Width 12.0, Platelet Count 172, Mean Platelet Volume 7.5, Neutrophils (%) (Auto) 62.9, Lymphocytes (%) (Auto) 26.0, Monocytes (%) (Auto) 8.3, Eosinophils (%) (Auto) 2.1, Basophils (%) (Auto ) 0.7, Sodium Level 138, Potassium Level 4.0, Chloride Level 104, Carbon Dioxide Level 25, Anion Gap 9, Blood Urea Nitrogen 12, Creatinine 0.8, Estimat Glomerular Filtration Rate > 60, Glucose Level 97, Calcium Level 8.4L Height (Feet): 5 Height (Inches): 11.00 Weight (Pounds): 256 General Appearance: alert EENT: normal ENT inspection Neck: normal alignment Cardiovascular: normal peripheral pulses, normal rate, regular rhythm Respiratory/Chest: chest wall non-tender, lungs clear, normal breath sounds Abdomen: normal bowel sounds, non tender, soft Extremities: normal inspection Edema: no edema noted Arm (L), no edema noted Arm (R), no edema noted Leg (L), no edema noted Leg (R), no edema noted Pedal (L), no edema noted Pedal (R), no edema noted Generalized Neurologic: responsive, motor weakness Skin: normal pigmentation, warm/dry Aniceto Sepulveda DO Aug 01, 2018 08:37
[2018-08-01 12:00] VITALS: BP_SYST 103; BP_SYST 105; BP_DIAS 61; BP_DIAS 71
--- NOTE | 2018-08-01 14:00 | Neurology Progress Note ---
Interim History Interim History Interim History Mr. Chopra feels better generally. He has had no further seizures. The mind is clear. He still feels weak on the left and continues to embellish the amount of weakness. His left wrist is swollen from an infiltrated IV and more painful. He denies any new neurologic symptoms. Review of Systems Neuro Review of Systems Benign. Objective Physical Exam Last Vital Signs Date Time Temp Pulse Resp B/P (MAP) Pulse Ox O2 Delivery O2 Flow Rate FiO2 08/01/18 12:00 99.1 78 20 103/71 (82) 98 99.1 08/01/18 09:00 Room Air 08/01/18 08:15 21 Laboratory Tests Test 07/31/18 19:35 08/01/18 07:10 Valproic Acid (Depakene) Level 54 MCG/ML (50-100) White Blood Count 8.8 K/UL (4.8-10.8) Red Blood Count 4.77 M/UL (4.70-6.10) Hemoglobin 14.5 G/DL (14.2-18.0) Hematocrit 40.2 % (42.0-52.0) L Mean Corpuscular Volume 84 FL (80-99) Mean Corpuscular Hemoglobin 30.4 PG (27.0-31.0) Mean Corpuscular Hemoglobin Concent 36.1 G/DL (32.0-36.0) H Red Cell Distribution Width 12.0 % (11.6-14.8) Platelet Count 172 K/UL (150-450) Mean Platelet Volume 7.5 FL (6.5-10.1) Neutrophils (%) (Auto) 62.9 % (45.0-75.0) Lymphocytes (%) (Auto) 26.0 % (20.0-45.0) Monocytes (%) (Auto) 8.3 % (1.0-10.0) Eosinophils (%) (Auto) 2.1 % (0.0-3.0) Basophils (%) (Auto) 0.7 % (0.0-2.0) Sodium Level 138 MMOL/L (136-145) Potassium Level 4.0 MMOL/L (3.5-5.1) Chloride Level 104 MMOL/L (98-107) Carbon Dioxide Level 25 MMOL/L (21-32) Anion Gap 9 mmol/L (5-15) Blood Urea Nitrogen 12 mg/dL (7-18) Creatinine 0.8 MG/DL (0.55-1.30) Estimat Glomerular Filtration Rate > 60 mL/min (>60) Glucose Level 97 MG/DL (74-106) Calcium Level 8.4 MG/DL (8.5-10.1) L Neurologic Exam Objective PHYSICAL EXAMINATION: GENERAL: He is a well-developed, well-nourished, obese, gentleman, lying in bed, in no acute distress. HEAD: Normocephalic and atraumatic. EENT: Examination benign. NECK: No neck rigidity was observed. NEUROLOGICAL EXAMINATION: MENTAL STATUS EXAMINATION: He was awake and alert. He was oriented to person, place, and time except for the exact date. He was able to recall 3/3 words immediately, but could only remember 2/3 words in 1 minute and 3 minutes. He was able to remember Presidents Trump and Obama, but could not remember Presidents prior to that. His mathematical skills were impaired except when he used his phone as a calculator. His visuospatial function was also impaired. SPEECH: He had a mild dysarthria. LANGUAGE: He had anomia for low-frequency words. CRANIAL NERVE EXAMINATION: II: The visual wilson were intact on confrontation testing. III, IV & : The external ocular movements were full and the pupils 3 mm in diameter, equal, round, regular, and reactive to light. V: He had normal facial sensations, and the temporales, masseters, and pterygoids functioned normally. VII: He had normal facial expressions and no facial asymmetry. VIII: He was able to hear well bilaterally and had no nystagmus. IX: The palate moved symmetrically on phonation. X: He had no hoarseness of voice. XI: The sternocleidomastoids and trapezii functioned normally. XII: The tongue was in the midline without any fasciculations or atrophy. MOTOR SYSTEM: Tone was normal in all four extremities. Examination of muscle mass revealed no focal wasting. Examination of power revealed G 5/5 power on the right side. On the left side, power was exceedingly difficult to test because he exhibited significant give-way weakness. In addition the left wrist was swollen and he guarded against movement in the left wrist. SENSORY EXAMINATION: He had intact sensations to pinprick, light touch, and graphesthesia. COORDINATION: He performed well on [id number] and fygm-lw-[id number] testing on the right side. On the left side, these were performed in a very erratic manner. REFLEXES: 0 at the biceps, triceps, brachioradialis, knees and ankles. The plantar responses were flexor bilaterally. STANCE: He stood up with support. After he had been standing for a few seconds , he exhibited unusual movements of his left leg, which he attributed to weakness. GAIT: He was able to take a few steps, but then exhibited some left leg collapse as a result of which he was made to back up, which he did quite well and sit in bed. Impression/Recommendations Diagnostic Impression 1. Mr. Chucky Chopra is a 37-year-old, right-handed, , gentleman, with a long history of obesity, bipolar affective disorder, hypertension, diabetes mellitus, chronic obstructive pulmonary disease, tobacco abuse, seizures of an unknown type, and strokes of an unknown type, who was hospitalized on 07/29/2018 for speech problems, increased left-sided weakness, and questionable seizures when [facility] 2. He feels better. He has had no further seizures. The mind is clear. He still feels weak on the left and continues to embellish the amount of weakness. His left wrist is swollen from an infiltrated IV and more painful. He denies any new neurologic symptoms. 3. On neurological examination at this time, he does demonstrate problems with orientation, recent and remote memory, higher cognitive function, and language. He also exhibits significant give-way weakness on the left side making it impossible to determine the amount of strength on that side. He has globally absent deep tendon reflexes and when he is made to stand and walk, he exhibits left leg collapse. However when he is made to back up, he does that quite well. 4. He did have a CT scan of the brain performed on 07/29/2018 and it revealed findings consistent with suboccipital craniectomy, but no other intracranial pathology was discovered. 5. The MRI of the brain done on 07/30/18 did not reveal any acute pathology. An old left sub-occipital craniectomy and left cerebellar encephalomalacia was seen. 6. Laboratory data obtained thus far have revealed a relatively normal CBC, chemistry panel with an elevated blood glucose at 135 when he came in. Relatively normal lipid panel. His valproic acid level was 53 - it is unclear if this was random, trough, or peak level. 7. His trough valproic acid level on 07/31/18 was 54. 8. The patient's history, neurological examination, laboratory data, and imaging studies are most compatible with underlying bipolar affective disorder, hypertension, diabetes mellitus, smoking, strokes, and seizures. It is unclear if the patient's increased left-sided weakness is due to embellishment or due to true weakness. It is also unclear as to what type of seizure disorder he has. Recommendations 1. Continue present management. 2. Continue Depakote 500 mg q.12 h. for seizure prophylaxis. 3. Await EEG to evaluate the patient for the type of seizure disorder. 4. Mobilize rapidly. Tanna Brady M.D., M.S.P.H. TANNA BRADY Aug 01, 2018 14:00
--- NOTE | 2018-08-01 14:45 | Progress Note ---
DATE: 08/01/2018 SUBJECTIVE: This is a 37-year-old male patient with status post cerebrovascular accident. He is very confused, disorganized , mood lability, and agitation secondary to stress of his medical illness. That is why, his attending has requested daily psychiatric consultation. MENTAL STATUS EXAMINATION: This is a 37-year-old male. Appearance is disheveled. Attitude, irritable and agitated. Affect, guarded and restricted. Intellect poor. Mood depressed and anxious. Motor activity, psychomotor agitation. Attention span is poor. Orientation x2. Speech is pressured. Thought process, disorganized and illogical. Thought content, auditory hallucinations and paranoid delusions. Insight and judgment is poor. DIAGNOSIS: Bipolar 2. PLAN: Continue to treat this patient with Depakote to stabilize his mood and Lexapro for his depression and anxiety. Provided 20 minutes of cognitive behavioral therapy to help the patient identify his automatic negative thoughts and help him to convert the automatic negative thoughts to more positive thoughts to reduce depression, anxiety, and suicidality. A 20 minutes of cognitive behavioral therapy provided. Chart reviewed. Discussed with staff. Seen and assessed in his bedside. Charmaine Victor M.D. DR: MARY JOB#: [id number] CC:
[2018-08-01 16:00] VITALS: BP 110/64
[2018-08-01 20:00] VITALS: BP 126/84
[2018-08-01] MEDS: QUEtiapine 200mg tab ORAL SCH (21:33)
--- NOTE | 2018-08-01 22:10 | Infectious Diseases Prog Note ---
Assessment/Plan Assessment/Plan ASSESSMENT: The patient is a 37-year-old male with: Gastroenteritis, resolved. Afebrile. Normal WBC. Seizure disorder. Hypertension. CVA. History of obesity. History of back surgery. Diabetes. Anxiety. PLAN: - monitor the patient off of antibiotics. -Monitor screening cultures. -Monitor CBC. -Monitor BMP. -If the patient's symptoms worsen, he may develop diarrhea, may send stool for culture and C. difficile. Subjective Constitutional: Denies: no symptoms, fever, chills, fatigue, anorexia, drenching sweats, other Allergies: Coded Allergies: HALOPERIDOL (Verified Allergy, Unknown, 07/30/18) Objective Vital Signs Last 24 Hour Vital Signs Date Time Temp Pulse Resp B/P (MAP) Pulse Ox O2 Delivery O2 Flow Rate FiO2 08/01/18 21:33 90 126/84 08/01/18 20:00 99.0 90 18 126/84 (98) 94 99.0 08/01/18 19:55 78 18 Room Air 21 08/01/18 16:00 98.1 82 18 110/64 (79) 95 98.1 08/01/18 12:00 99.1 87 20 105/61 (76) 98 99.1 08/01/18 09:00 Room Air 08/01/18 08:15 80 20 Room Air 21 08/01/18 08:02 82 125/68 08/01/18 08:00 98.8 82 20 125/68 (87) 97 98.8 08/01/18 04:00 98.6 90 18 115/97 (103) 99 98.6 08/01/18 03:30 98.0 08/01/18 00:00 98.0 83 18 103/66 (78) 95 98.0 Height (Feet): 5 Height (Inches): 11.00 Weight (Pounds): 256 HEENT: atraumatic Respiratory/Chest: no respiratory distress Cardiovascular: regular rhythm Abdomen: no organomegaly Laboratory Tests Test 08/01/18 07:10 White Blood Count 8.8 K/UL (4.8-10.8) Red Blood Count 4.77 M/UL (4.70-6.10) Hemoglobin 14.5 G/DL (14.2-18.0) Hematocrit 40.2 % (42.0-52.0) L Mean Corpuscular Volume 84 FL (80-99) Mean Corpuscular Hemoglobin 30.4 PG (27.0-31.0) Mean Corpuscular Hemoglobin Concent 36.1 G/DL (32.0-36.0) H Red Cell Distribution Width 12.0 % (11.6-14.8) Platelet Count 172 K/UL (150-450) Mean Platelet Volume 7.5 FL (6.5-10.1) Neutrophils (%) (Auto) 62.9 % (45.0-75.0) Lymphocytes (%) (Auto) 26.0 % (20.0-45.0) Monocytes (%) (Auto) 8.3 % (1.0-10.0) Eosinophils (%) (Auto) 2.1 % (0.0-3.0) Basophils (%) (Auto) 0.7 % (0.0-2.0) Sodium Level 138 MMOL/L (136-145) Potassium Level 4.0 MMOL/L (3.5-5.1) Chloride Level 104 MMOL/L (98-107) Carbon Dioxide Level 25 MMOL/L (21-32) Anion Gap 9 mmol/L (5-15) Blood Urea Nitrogen 12 mg/dL (7-18) Creatinine 0.8 MG/DL (0.55-1.30) Estimat Glomerular Filtration Rate > 60 mL/min (>60) Glucose Level 97 MG/DL (74-106) Calcium Level 8.4 MG/DL (8.5-10.1) L Current Medications Medications (Trade) Dose Ordered Sig/Sofia Route PRN Reason Start Time Stop Time Status Last Admin Dose Admin Acetaminophen (Tylenol) 650 mg Q4H PRN ORAL fever 07/30/18 15:30 08/28/18 15:29 Al Hydroxide/Mg Hydroxide (Mylanta II) 30 ml Q6H PRN ORAL dyspepsia 07/30/18 15:30 08/28/18 15:29 Albuterol/ Ipratropium (Albuterol/ Ipratropium) 3 ml Q4H PRN HHN Shortness of Breath 07/30/18 15:30 08/03/18 15:29 Aspirin (Ecotrin) 81 mg DAILY ORAL 07/31/18 09:00 08/29/18 08:59 08/01/18 08:02 Clonidine HCl (Catapres Tab) 0.1 mg Q4H PRN ORAL For High Blood Pressure 07/30/18 15:30 08/28/18 15:29 Dextrose (Dextrose 50%) 25 ml Q30M PRN IV Hypoglycemia 07/30/18 15:30 08/28/18 15:29 Dextrose (Dextrose 50%) 50 ml Q30M PRN IV Hypoglycemia 07/30/18 15:30 08/28/18 15:29 Divalproex Sodium (Depakote) 500 mg Q12HR ORAL 07/30/18 21:00 08/28/18 20:59 08/01/18 21:33 Escitalopram Oxalate (Lexapro) 10 mg DAILY ORAL 07/31/18 09:00 08/29/18 08:59 08/01/18 08:02 Heparin Sodium (Porcine) (Heparin 5000 units/ml) 5,000 units EVERY 12 HOURS SUBQ 07/30/18 21:00 08/28/18 20:59 08/01/18 08:03 Insulin Aspart (NovoLOG) BEFORE MEALS AND HS SUBQ 07/30/18 16:30 08/29/18 11:29 08/01/18 17:35 Lorazepam (Ativan 2mg/ml 1ml) 0.5 mg Q4H PRN IV For Anxiety 07/30/18 15:30 08/05/18 15:29 Metoprolol Succinate (Toprol XL) 25 mg Q12HR ORAL 07/30/18 21:00 08/29/18 08:59 08/01/18 21:33 Morphine Sulfate (Morphine Sulfate) 2 mg Q4H PRN IVP For Pain 08/01/18 10:00 08/08/18 09:59 08/01/18 20:03 Nicotine (Nicoderm) 1 patch Q24H TDERMAL 07/30/18 17:30 08/29/18 17:29 08/01/18 17:32 Nitroglycerin (Ntg) 0.4 mg Q5M X 3 DOSES PRN SL Prn Chest Pain 07/30/18 15:45 08/28/18 20:59 Ondansetron HCl (Zofran) 4 mg Q4H PRN IVP Nausea & Vomiting 07/30/18 21:00 08/29/18 20:59 08/01/18 13:09 Polyethylene Glycol (Miralax) 17 gm HSPRN PRN ORAL Constipation 07/30/18 21:00 08/28/18 20:59 Promethazine HCl/ Codeine (Phenergan with Codeine) 5 ml Q4H PRN ORAL For Cough 07/30/18 16:00 08/28/18 15:59 Quetiapine Fumarate (SEROquel) 200 mg BEDTIME ORAL 07/30/18 21:00 08/28/18 20:59 08/01/18 21:33 Temazepam (Restoril) 15 mg HSPRN PRN ORAL Insomnia 07/30/18 21:00 08/05/18 20:59 Ellis Contreras MD Aug 01, 2018 22:10
[2018-08-02] MEDS: Morphine Sulfate 2mg/ml Inj IVP PRN ×5 (02:05→18:18)
[2018-08-02 04:00] VITALS: BP 116/81
[2018-08-02] MEDS: NovoLOG Insulin Flexpen SUBQ SCH ×3 (06:30→16:30)
[2018-08-02 08:00] VITALS: BP 110/63
[2018-08-02] MEDS: Heparin 5000 units/ml inj SUBQ SCH ×2 (09:00→09:12)
[2018-08-02] MEDS: Aspirin EC 81mg tab ORAL SCH (09:10)
[2018-08-02] MEDS: Metoprolol Succinate XL 25mg tab ORAL SCH (09:10)
[2018-08-02] MEDS: Depakote 500mg tab ORAL SCH (09:11)
--- NOTE | 2018-08-02 09:39 | Cardiology Report ---
APPROVED REPORT EXAM: Two-dimensional and M-mode echocardiogram with Doppler and color Doppler. INDICATION LV function M-Mode DIMENSIONS IVSd1.3 (0.7-1.1cm)Left Atrium (MM)3.0 (1.6-4.0cm) LVDd3.9 (3.5-5.6cm)Aortic Root3.4 (2.0-3.7cm) PWd1.3 (0.7-1.1cm)Aortic Cusp Exc.1.7 (1.5-2.0cm) LVDs2.8 (2.5-4.0cm) PWs1.9 cm Normal left ventricular chamber size, systolic function and wall motion. Left ventricular ejection fraction estimated to be 60 %. Borderline mild left ventricular hypertrophy. No evidence of pericardial effusion. All other cardiac chamber sizes are within normal limits. Mild focal aortic valve sclerosis with adequate cusp excursion. Mildly thickened mitral valve leaflets with normal excursion. Mitral annulus and aortic root calcification. Pulmonic valve not well visualized. Normal tricuspid valve structure. IVC dilated at 2.3 cm with physiologic collapse suggestive of mildly increased RA pressure. A color flow and spectral Doppler study was performed and revealed: Trace mitral regurgitation. Mitral inflow indicates normal left ventricular diastolic function. Trace tricuspid regurgitation. Tricuspid systolic velocities suggests peak right ventricular systolic pressure of 17 mmHg.
--- NOTE | 2018-08-02 09:45 | History and Physical Report ---
DATE OF ADMISSION: 07/29/2018 APPROXIMATE TIME: 1 p.m. CONSULTANTS: 1. Lashanda Pham M.D. 2. Dago Brady M.D. 3. Charmaine Victor M.D. CHIEF COMPLAINT: CVA, left-sided increased weakness, anxiety, and bipolar. BRIEF HISTORY: The patient is a 37-year-old male, who lives at a board and care, presented to [facility] last night with history of recent CVA with worsening left-sided weakness, diagnosed with the above and also anxiety and bipolar, admitted to the telemetry for further care. Currently, calm in bed, left-sided weakness. No complaint otherwise. PAST MEDICAL HISTORY: Includes seizure, diabetes, hypertension, cerebrovascular accident with left-sided weakness, and chronic obstructive pulmonary disease. PAST SURGICAL HISTORY: Neck and back surgery. MEDICATIONS: Include 01:35, aspirin, metoprolol, quetiapine, albuterol, morphine, Zofran, lorazepam, , dextrose, and promethazine. ALLERGIES: Haldol. SOCIAL HISTORY: Positive smoke. No alcohol. No intravenous drug abuse. FAMILY HISTORY: Noncontributory. REVIEW OF SYSTEMS: No chest pain. No shortness of breath. No nausea, vomiting, or diarrhea. PHYSICAL EXAMINATION: GENERAL: Calm in bed, oriented x3, in no acute distress. VITAL SIGNS: Temperature 97, pulse 89, respirations 20, and blood pressure 110/64. CARDIOVASCULAR: No murmurs. LUNGS: Distant and clear. ABDOMEN: Bowel sounds positive. Nontender. Nondistended. EXTREMITIES: Showed no cyanosis, clubbing, or edema. EXTREMITIES: No cyanosis, clubbing, or edema. NEUROLOGIC: Weakness x4 especially in the left side. LABORATORY DATA: Labs at this time show CBC is normal. BMP shows a potassium of 3.4 and glucose 113. Albumin 3.2. Otherwise, BMP is normal. INR is 0.9, PTT 21. Urine toxicology, valproic is 53. Urinalysis show 1+ leukocyte esterase. ASSESSMENT: 1. Cerebrovascular accident with left-sided weakness. 2. Anxiety. 3. Malnutrition. 4. Diabetes. 5. Hypertension. 6. Seizures. 7. Chronic obstructive pulmonary disease. 8. Bipolar. 9. Urinary tract infection. PLAN: 1. Continue previous medications. 2. OT, PT, and dietary evaluation. 3. CBC and BMP in the morning. 4. Blood pressure, blood sugar, and pain control. 5. Antibiotics per Infectious Disease. 6. Dr. Pham, Dr. Brady, Dr. Victor, and Dr. Contreras to consult. Aniceto Sepulveda D.O. DR: [place] JOB#: [id number] CC:
--- NOTE | 2018-08-02 10:41 | Diagnostic Imaging Report ---
Indication: Pain left wrist pain Findings: 3 views of the left wrist were obtained. No acute fractures, malalignment, erosions or periostitis are identified. Soft tissues are unremarkable. Impression: No acute findings.
--- NOTE | 2018-08-02 11:43 | General Progress Note ---
Assessment/Plan Problem List: (1) The administrative codes within the IMO content you are accessing may have as of 07/26/2018. Please contact your IT Dept/Help Desk and request the latest Regulatory release be installed. IT Dept/Help Desk- Please refer to our FAQ page ([email or web address] or contact [employer] Customer Support at [email or web address] (2) Malnutrition ICD Codes: E46 - Unspecified protein-calorie malnutrition SNOMED: 53449031 (3) CVA (cerebral vascular accident) ICD Codes: I63.9 - Cerebral infarction, unspecified SNOMED: 215315971 (4) COPD exacerbation ICD Codes: J44.1 - Chronic obstructive pulmonary disease with (acute) exacerbation SNOMED: 885994669, 804403017 (5) HTN (hypertension) ICD Codes: I10 - Essential (primary) hypertension SNOMED: 10056009 (6) Anxiety ICD Codes: F41.9 - Anxiety disorder, unspecified; Z68.41 - Body mass index (BMI ) 40.0-44.9, adult SNOMED: 67292978 (7) Diabetes mellitus ICD Codes: E11.9 - Diabetes mellitus SNOMED: 21480375 Status: unchanged Assessment/Plan ot pt diet abx cbc bmp am dc plan snf Subjective Constitutional: Reports: weakness Allergies: Coded Allergies: HALOPERIDOL (Verified Allergy, Unknown, 07/30/18) All Systems: reviewed and negative except above Subjective calm in bed Objective Last 24 Hour Vital Signs Date Time Temp Pulse Resp B/P (MAP) Pulse Ox O2 Delivery O2 Flow Rate FiO2 08/02/18 10:41 97.4 08/02/18 10:11 97.4 08/02/18 09:10 86 110/63 08/02/18 09:00 Room Air 08/02/18 08:00 97.4 86 18 110/63 (79) 94 97.4 08/02/18 04:00 98.7 86 16 116/81 (93) 96 98.7 08/01/18 21:33 90 126/84 08/01/18 21:00 Room Air 08/01/18 20:00 99.0 90 18 126/84 (98) 94 99.0 08/01/18 19:55 78 18 Room Air 21 08/01/18 16:00 98.1 82 18 110/64 (79) 95 98.1 08/01/18 12:00 99.1 87 20 105/61 (76) 98 99.1 Intake and Output 08/01/18 08/02/18 19:00 07:00 Intake Total 1000 ml 1500 ml Output Total 1000 ml Balance 1000 ml 500 ml Intake Oral 1000 ml 1500 ml Output Urine Total 1000 ml # Voids 5 3 Height (Feet): 5 Height (Inches): 11.00 Weight (Pounds): 256 General Appearance: alert EENT: normal ENT inspection Neck: normal alignment Cardiovascular: normal peripheral pulses, normal rate, regular rhythm Respiratory/Chest: chest wall non-tender, lungs clear, normal breath sounds Abdomen: normal bowel sounds, non tender, soft Extremities: normal inspection Edema: no edema noted Arm (L), no edema noted Arm (R), no edema noted Leg (L), no edema noted Leg (R), no edema noted Pedal (L), no edema noted Pedal (R), no edema noted Generalized Neurologic: motor weakness Skin: normal pigmentation, warm/dry Aniceto Sepulveda DO Aug 02, 2018 11:43
[2018-08-02 12:00] VITALS: BP 110/61
--- NOTE | 2018-08-02 12:58 | Infectious Diseases Prog Note ---
Assessment/Plan Assessment/Plan ASSESSMENT: The patient is a 37-year-old male with: Gastroenteritis, resolved. Afebrile. Normal WBC. -RPR neg Seizure disorder. Hypertension. CVA. History of obesity. History of back surgery. Diabetes. Anxiety. MRSA colonized PLAN: - monitor the patient off of antibiotics. -Monitor screening cultures. -Monitor CBC. -Monitor BMP. -If the patient's symptoms worsen, he may develop diarrhea, may send stool for culture and C. difficile. Subjective Allergies: Coded Allergies: HALOPERIDOL (Verified Allergy, Unknown, 07/30/18) Subjective afebrile no leukocytosis Objective Vital Signs Last 24 Hour Vital Signs Date Time Temp Pulse Resp B/P (MAP) Pulse Ox O2 Delivery O2 Flow Rate FiO2 08/02/18 12:00 98.2 79 18 110/61 (77) 95 98.2 08/02/18 10:41 97.4 08/02/18 10:11 97.4 08/02/18 09:10 86 110/63 08/02/18 09:00 Room Air 08/02/18 08:00 97.4 86 18 110/63 (79) 94 97.4 08/02/18 04:00 98.7 86 16 116/81 (93) 96 98.7 08/01/18 21:33 90 126/84 08/01/18 21:00 Room Air 08/01/18 20:00 99.0 90 18 126/84 (98) 94 99.0 08/01/18 19:55 78 18 Room Air 21 08/01/18 16:00 98.1 82 18 110/64 (79) 95 98.1 Height (Feet): 5 Height (Inches): 11.00 Weight (Pounds): 256 Objective General Appearance: alert EENT: normal ENT inspection Neck: normal alignment Cardiovascular: normal peripheral pulses, normal rate, regular rhythm Respiratory/Chest: chest wall non-tender, lungs clear, normal breath sounds Abdomen: normal bowel sounds, non tender, soft Extremities: normal inspection Edema: no edema noted Arm (L), no edema noted Arm (R), no edema noted Leg (L), no edema noted Leg (R), no edema noted Pedal (L), no edema noted Pedal (R), no edema noted Generalized Neurologic: motor weakness Skin: normal pigmentation, warm/dry Current Medications Medications (Trade) Dose Ordered Sig/Sofia Route PRN Reason Start Time Stop Time Status Last Admin Dose Admin Acetaminophen (Tylenol) 650 mg Q4H PRN ORAL fever 07/30/18 15:30 08/28/18 15:29 Al Hydroxide/Mg Hydroxide (Mylanta II) 30 ml Q6H PRN ORAL dyspepsia 07/30/18 15:30 08/28/18 15:29 Albuterol/ Ipratropium (Albuterol/ Ipratropium) 3 ml Q4H PRN HHN Shortness of Breath 07/30/18 15:30 08/03/18 15:29 Aspirin (Ecotrin) 81 mg DAILY ORAL 07/31/18 09:00 08/29/18 08:59 08/02/18 09:10 Clonidine HCl (Catapres Tab) 0.1 mg Q4H PRN ORAL For High Blood Pressure 07/30/18 15:30 08/28/18 15:29 Dextrose (Dextrose 50%) 25 ml Q30M PRN IV Hypoglycemia 07/30/18 15:30 08/28/18 15:29 Dextrose (Dextrose 50%) 50 ml Q30M PRN IV Hypoglycemia 07/30/18 15:30 08/28/18 15:29 Divalproex Sodium (Depakote) 500 mg Q12HR ORAL 07/30/18 21:00 08/28/18 20:59 08/02/18 09:11 Escitalopram Oxalate (Lexapro) 10 mg DAILY ORAL 07/31/18 09:00 08/29/18 08:59 08/02/18 09:09 Heparin Sodium (Porcine) (Heparin 5000 units/ml) 5,000 units EVERY 12 HOURS SUBQ 07/30/18 21:00 08/28/18 20:59 08/01/18 08:03 Insulin Aspart (NovoLOG) BEFORE MEALS AND HS SUBQ 07/30/18 16:30 08/29/18 11:29 08/01/18 17:35 Lorazepam (Ativan 2mg/ml 1ml) 0.5 mg Q4H PRN IV For Anxiety 07/30/18 15:30 08/05/18 15:29 Metoprolol Succinate (Toprol XL) 25 mg Q12HR ORAL 07/30/18 21:00 08/29/18 08:59 08/02/18 09:10 Morphine Sulfate (Morphine Sulfate) 2 mg Q4H PRN IVP For Pain 08/01/18 10:00 08/08/18 09:59 08/02/18 10:11 Nicotine (Nicoderm) 1 patch Q24H TDERMAL 07/30/18 17:30 08/29/18 17:29 08/01/18 17:32 Nitroglycerin (Ntg) 0.4 mg Q5M X 3 DOSES PRN SL Prn Chest Pain 07/30/18 15:45 08/28/18 20:59 Ondansetron HCl (Zofran) 4 mg Q4H PRN IVP Nausea & Vomiting 07/30/18 21:00 08/29/18 20:59 08/02/18 12:02 Polyethylene Glycol (Miralax) 17 gm HSPRN PRN ORAL Constipation 07/30/18 21:00 08/28/18 20:59 Promethazine HCl/ Codeine (Phenergan with Codeine) 5 ml Q4H PRN ORAL For Cough 07/30/18 16:00 08/28/18 15:59 Quetiapine Fumarate (SEROquel) 200 mg BEDTIME ORAL 07/30/18 21:00 08/28/18 20:59 08/01/18 21:33 Temazepam (Restoril) 15 mg HSPRN PRN ORAL Insomnia 07/30/18 21:00 08/05/18 20:59 Natalya Lopez M.D. Aug 02, 2018 12:58
--- NOTE | 2018-08-02 14:45 | Progress Note ---
DATE: 08/02/2018 SUBJECTIVE: This is a 37-year-old male patient, status post CVA, psychiatric followup. The patient still endorses some depression, anxiety, confusion, but he denies any suicidal or homicidal thoughts. Because of his altered mental status, his attending has requested daily psychiatric consultation. MENTAL STATUS EXAMINATION: This is a 37-year-old male. Appearance is disheveled. Attitude, irritable and agitated. Affect, guarded and restricted. Intellect poor. Mood depressed and anxious. Motor activity, psychomotor agitation. Attention span is poor. Orientation x2. Speech is low volume and slurred. Thought process, disorganized and illogical. Thought content, auditory hallucinations and paranoid delusions. Insight and judgment is poor DIAGNOSIS: Bipolar 2. PLAN: Treat him with Seroquel 200 mg at bedtime, Ativan 0.5 mg IV q.4 hours p.r.n. anxiety and agitation, Lexapro 10 mg daily, and Depakote 500 twice a day. Provided him with 20 minutes of cognitive behavioral therapy to identify his automatic negative thoughts and help him to convert his negative thoughts to more positive thoughts to reduce depression, anxiety, and suicidality. A 20 minutes of cognitive behavioral therapy. Chart reviewed. Discussed with staff. Seen and assessed in his room. Charmaine Victor M.D. DR: MARY JOB#: [id number] CC:
--- NOTE | 2018-08-02 14:53 | Cardiology Report ---
APPROVED REPORT EKG Measurement Heart [id number] Normal sinus rhythm Normal ECG
[2018-08-02 16:00] VITALS: BP 137/95
[2018-08-02] MEDS ORDERED: ACETAMINOPHEN325 M1 ORAL (17:40)
[2018-08-02] MEDS ORDERED: MYLANTA II30 ML PO (17:42)
[2018-08-02] MEDS ORDERED: CATAPRES0.1 MG ORAL (17:44)
[2018-08-02] MEDS ORDERED: DUONEB 0.5-3(2.53 ML HHN (17:48)
[2018-08-02] MEDS ORDERED: HEPARIN SO5000 UNIT2 SUBQ (17:49)
[2018-08-02] MEDS ORDERED: NOVOLOG100 UNITS1 SUBQ (17:50)
[2018-08-02] MEDS ORDERED: LORAZEPAM2 MG/1 M1 IV (17:54)
[2018-08-02] MEDS ORDERED: NICODERM CQ1 EAC1 TD (17:55)
[2018-08-02] MEDS ORDERED: MORPHINE 22 MG/1 ML IV (17:55)
[2018-08-02] MEDS ORDERED: NITROSTAT0.4 M2 SL (17:58)
[2018-08-02] MEDS ORDERED: ZOFRAN4 M3 ORAL (17:59)
[2018-08-02] MEDS ORDERED: POLYETHYLENE GL17 GM ORAL (18:00)
[2018-08-02] MEDS ORDERED: RESTORIL15 MG ORAL (18:01)
[2018-08-02 20:00] VITALS: BP 106/68
--- NOTE | 2018-08-03 02:45 | Electroencephalogram ---
DATE OF PROCEDURE: 08/01/2018 REQUESTING PHYSICIAN: Aniceto Sepulveda D.O. READING PHYSICIAN: Dago Brady M.D. PROCEDURE PERFORMED: EEG. HISTORY: This EEG was performed on a 37-year-old gentleman with a history of multiple medical problems who reports to us that he has had seizures in the past. The purpose of this EEG was to better delineate the type of seizure disorder. TECHNICAL NOTE: This EEG was performed on [employer] [facility] with electrodes placed on the scalp according to the International 10-20 system. Efekl-qm-cyyos and yvkva-cd-txs montages were used. The EEG was technically satisfactory and was performed in the awake, drowsy, and sleep states. OBSERVATIONS: In the best awake state, the background activity consisted of 7-7.5 Hz, posterior rhythmic theta activity. Drowsiness was characterized by slowing of the background in the 4-5 Hz theta range with some intermixed delta frequencies. Stage II sleep was characterized by further slowing of the background in the delta and theta range and the presence of vertex waves. No definite focal abnormalities or epileptiform discharges were seen. IMPRESSION: This is an abnormal EEG characterized by slowing of the background in the 7-7.5 Hz theta range in the best awake state. COMMENT: This study is consistent with an encephalopathy of a zlvz-mx-oyhzwqhk degree. Please note that no interictal discharges were seen during this EEG. Dago Brady M.D., M.S.P.H. DR: NELDA JOB#: [id number] [facility]
--- NOTE | 2018-08-03 04:15 | Progress Note ---
DATE: 08/01/2018 PSYCHOTHERAPY CONSULTATION PROGRESS NOTE TREATING ATTENDING PHYSICIAN: Aniceto Sepulveda D.O. SUBJECTIVE: The patient is a 37-year-old male patient who is from a board and care facility . The patient was admitted to the hospital for a cerebrovascular accident and this patient has a long-term history of mental health including a diagnosis of schizoaffective disorder, bipolar type. Upon admission, the patient has been confused and moods have been fluctuating, he is labile, anxious, and for these reasons, he was referred for psychotherapeutic services. This clinician assessed the patient. He states that he has been feeling anxious because he is very reluctant to go to rehab facility in order to rehabilitate him from his last stroke. He states that he will miss his and is having a difficult time with this. He states that he has been in and out of the hospital several times. Tends to get frustrated and irritated. He states that he does not need his psychotropic medication because . He is very cooperative, very confused; however, able to articulate . The patient has been participating in his treatment. This clinician assessed this patient. The patient denies suicidal or homicidal thoughts of ideation. Denies any auditory or visual hallucinations at this time. He is cooperative. PAST MEDICAL HISTORY: Includes a history of COPD, CVA, obesity, and hypertension. ALLERGIES: Haldol. SUBSTANCE ABUSE HISTORY: The patient does have a history of substance use including alcohol and marijuana use; however, he states that he does not use any significant drugs this time or within the last year. SOCIAL HISTORY: The patient is a 37-year-old patient who states he is . He states he lives in a board and care facility. Financially sustained through [employer]. MENTAL STATUS EXAMINATION: The patient is alert and oriented to person and place. Mood is anxious. Affect blunted. Thought process is disorganized. The patient has poor attention and concentration. Poor insight, judgment, and impulse control. This clinician assessed this patient, assessed the patient's mental status. Provided him with supportive psychotherapy, encouraging the patient and provided with reality orientation. Explained coping skills such as his anxiety. Continue behavioral management. DIAGNOSIS: [place] I: Schizoaffective disorder, bipolar type. Continue behavioral management. This clinician has reviewed the patient's chart and discussed the treatment with the treatment team. Juan Chinchilla PsyD. DR: PRISCILLA JOB#: [id number] CC:
--- NOTE | 2018-08-04 01:00 | Progress Note ---
DATE: 08/02/2018 "NOTE: POOR AUDIO QUALITY" PSYCHOTHERAPY CONSULTATION PROGRESS NOTE TREATING ATTENDING PHYSICIAN: Aniceto Sepulveda D.O. SUBJECTIVE: This is a 37-year-old attack. The patient has been very depressed and hopeless. Disorganized in his thought process and anxious. The patient states that he has treatment at this time. MENTAL STATUS EXAMINATION: The patient is alert and oriented to person, place, and time, and he relates that his mood is anxious. Affect is blunted. Thought process . The patient is cooperative. DIAGNOSIS: . PLAN: . Provide the patient with supportive psychotherapy and coping skills. Encouraging the patient to participate in treatment milieu. . The patient states that . Discussed the treatment with treatment team . Juan Chinchilla PsyD. DR: BESSIE JOB#: [id number] CC:
--- NOTE | 2018-08-04 15:05 | Diagnostic Imaging Report ---
APPROVED REPORT CPT Code: 24332 Present Symptoms Left Comments: LEFT ARM PAIN. LEFT UPPER EXTREMITY: Venous imaging reveals patency of the internal jugular, subclavian, axillary and brachial veins. The cephalic and basilic veins are also patent. Doppler indicates normal spontaneous flow within these venous segments.
--- NOTE | 2018-08-04 15:06 | Diagnostic Imaging Report ---
APPROVED REPORT CPT Code: 82591 Present Symptoms Lower Extremity Pain: Bilateral BILATERAL: Imaging reveals a patent deep venous system bilaterally. There is no evidence of thrombus within the femoral, popliteal or tibial segments. The greater saphenous veins are also within normal limits. Doppler indicates normal spontaneous flow within these segments.
--- NOTE | 2018-08-04 15:06 | Diagnostic Imaging Report ---
APPROVED REPORT CPT Code: 81509 Vascular Symptoms CVA/TIA: CAROTID (BILATERAL) - Imaging reveals no significant plaque within the right and left extracranial carotid arteries. The Doppler spectral flow analysis is within normal limits throughout the extracranial carotid arteries bilaterally. VERTEBRAL- The vertebral arteries are within normal limits.
--- NOTE | 2018-08-05 12:11 | Discharge Summary ---
Discharge Summary Discharge Summary _ DATE OF ADMISSION: 07/29/2018 DATE OF DISCHARGE: 08/02/2018 REASON FOR ADMISSION: 37 years old male with past medical history of seizure disorder, diabetes mellitus, hypertension, tobacco use, presented with left-sided weakness and mild dysarthria for one week. He reported that he was not sure when it started, but symptoms were present for about one week. He saw his doctor earlier that day, who recommended him to go to emergency room for further evaluation. Upon physical examination patient showed t,o left-sided deficit. Laboratory workup revealed no leukocytosis stable hemoglobin and hematocrit. Stable coagulation profile. Stable renal parameters and electrolytes. Troponin negative. CT of the head revealed evidence of prior suboccipital craniectomy. Negative for acute intracranial bleeding or mass effect. Chest x-ray revealed no acute cardiopulmonary pathology. Since symptoms were present for about for one week , patient was not a candidate for TPA . Aspirin was given in ED. Patient was admitted for further management with diagnosis of CVA. CONSULTANTS: neurologist Dr. Dillard pulmonary Dr. Pham ID specialist Dr. Contreras psychiatrist Dr. Victor [facility]: Patient admitted. Neurology evaluation was requested. Carotid duplex was essentially negative. Venous duplex bilateral lower extremity revealed no evidence of acute DVT. Echocardiogram revealed preserved ejection fraction of 60% and no wall motion abnormality. Right ventricular systolic pressure of 17. Patient was continued on antiplatelet therapy. Lipid panel revealed elevated triglycerides , and stable LDL and total cholesterol. Patient was educated on ow-cholesterol low-fat diabetic diet. Blood pressure was managed with beta kaila and remained stable. Blood sugar was managed with sliding scale of insulin as needed . Hemoglobin A1c at goal -6.5. Neurologist seen and evaluated patient. Seizure precautions maintained. Depakote continued. EEG subsequently was done and revealed encephalopathy of zygw-vd-knziuuve decrease. No interictal discharges were seen during this EEG. According to neurologist patient's history, neurological examination, laboratory data, and imaging studies were most compatible with underlying bipolar affective disorder, hypertension, diabetes mellitus, smoking, stroke, and seizure disorder. Per neurologist, it was unclear if the patient's increased left-sided weakness was due to embellishment or due to true weakness. It was also unclear as to what type of seizure disorder he had. Supplemental oxygen was on board as needed to keep pulse oximetry above 92%. Pulmonary toilet provided as needed. Patient started on nicotine patch. Patient counseled on smoking cessation. Patient complained of pain and numbness in the left arm. X-ray of the left wrist revealed no evidence of acute findings, and venous duplex of left upper extremity revealed no evidence of acute DVT. Psychiatrist closely followed and diagnosed patient with bipolar disorder type II . Psychiatric medication regimen was optimized . Activity was gradually increased. Patient was working with speech therapist on dysarthria. Patient was stable for discharge to [facility] for further rehabilitation FINAL DIAGNOSES: Cerebrovascular accident with left-sided weakness Seizure disorder Encephalopathy Hypertension Diabetes mellitus Tobacco use COPD Bipolar disorder type II Anxiety DISCHARGE MEDICATIONS: See Medication Reconciliation list. DISCHARGE INSTRUCTIONS: [facility] Follow up with medical doctor at the facility. I have been assigned to dictate discharge summary for this account. I was not involved in the patient's management. Elisa Antony NP Aug 05, 2018 12:11
== END 2018-08-02 20:30 | DRG 65 ==
LOC: EMR 19:35 → 2E 19:41 → EDBEDREQ 19:47 → 2E 23:19 → 4E 07-30 15:35
DX: I63.9 Cerebral infarction, unspecified (principal); G81.94 Hemiplegia, unspecified affecting left nondominant side; G40.919 Epilepsy, unspecified, intractable, without status epilepticus; E46 Unspecified protein-calorie malnutrition; N39.0 Urinary tract infection, site not specified; F31.81 Bipolar II disorder; G93.40 Encephalopathy, unspecified; K52.9 Noninfective gastroenteritis and colitis, unspecified; I10 Essential (primary) hypertension; J44.9 Chronic obstructive pulmonary disease, unspecified; Z88.8 Allergy status to other drugs, medicaments and biological substances; F41.9 Anxiety disorder, unspecified; G62.9 Polyneuropathy, unspecified; Z91.19 Patient's noncompliance with other medical treatment and regimen; G40.909 Epilepsy, unspecified, not intractable, without status epilepticus; E11.9 Type 2 diabetes mellitus without complications; F17.200 Nicotine dependence, unspecified, uncomplicated; Z22.322 Carrier or suspected carrier of Methicillin resistant Staphylococcus aureus; F10.21 Alcohol dependence, in remission; Z91.14 Patient's other noncompliance with medication regimen
CPT/HCPCS: 36415; 70450; 70553; 71045; 80048; 80053; 80061; 80164; 81003; 82140; 82306; 82607; 82746; 82962; 83036; 84443; 84484; 85025; 85610; 85651; 85730; 86592; 87081; 90732; 93005; 93306; 93880; 93970; 93971; 94664; 95819; A9585; J1815; J2405; J8499

== ENCOUNTER 2018-08-24 17:13 | Inpatient (IN) | payer MEDICARE, OTHER ==
[~2018-08-24] VITALS: Ht 180.3 cm; Wt 119.5 kg
[~2018-08-24 17:13] MED LIST changes: +CATAPRES0.1 MG ORAL; +HEPARIN SO5000 UNIT2 SUBQ; +LEXAPRO10 MG ORAL; +LORAZEPAM2 MG/1 M1 IV; +METOPROLOL SUCC25 MG ORAL; +MORPHINE 22 MG/1 ML IV; +MYLANTA II30 ML PO; +NITROSTAT0.4 M2 SL; +NOVOLOG100 UNITS1 SUBQ; +POLYETHYLENE GL17 GM ORAL; +RESTORIL15 MG ORAL; +ZOFRAN4 M3 ORAL
[2018-08-24 17:20] VITALS: BP 101/61
[2018-08-24] MEDS ORDERED: NORCO 10-325 T1 EACH ORAL (17:24)
[2018-08-24] MEDS ORDERED: Morphine Sulfate 4mg/ml Inj (IV/IM USE ONLY) IVP ONE (17:45)
[2018-08-24 18:04] LABS: ANION GAP 6 mmol/L (5-15); BLOOD UREA NITROGEN 15 mg/dL (7-18); CALCIUM 9.2 MG/DL (8.5-10.1); CARBON DIOXIDE 30 MMOL/L (21-32); CHLORIDE 100 MMOL/L (98-107); CREATININE 0.9 MG/DL (0.55-1.30); SODIUM 136 MMOL/L (136-145)
[2018-08-24] MEDS ORDERED: DEPAKOTE500 MG PO (18:06)
[2018-08-24] MEDS ORDERED: LORAZEPAM1 MG ORAL (18:06)
[2018-08-24 18:09] LABS: ALANINE AMINOTRANSFERASE 24 U/L (12-78); ALBUMIN 3.2 G/DL (3.4-5.0); ALKALINE PHOSPHATASE 60 U/L (46-116); ASPARTATE AMINO TRANSFERASE 13 U/L (15-37); BILIRUBIN,TOTAL 0.3 MG/DL (0.2-1.0)
[2018-08-24 18:28] LABS: APPEARANCE,URINE CLEAR; BILIRUBIN, URINE NEGATIVE (NEGATIVE); COLOR,URINE PALE YELLOW; GLUCOSE, URINE (UA) NEGATIVE (NEGATIVE); KETONES,URINE NEGATIVE (NEGATIVE); LEUKOCYTE ESTERASE ,URINE NEGATIVE (NEGATIVE); NITRITE,URINE NEGATIVE (NEGATIVE); PH,URINE 7 (4.5-8.0); PROTEIN,URINE NEGATIVE (NEGATIVE); UROBILINOGEN,URINE NORMAL MG/DL (0.0-1.0)
[2018-08-24 18:30] LABS: BASOPHILS % (AUTO) 1.5 % (0.0-2.0); EOSINOPHILS % (AUTO) 2.4 % (0.0-3.0); HEMOGLOBIN 13.9 G/DL (14.2-18.0); LYMPHOCYTES % (AUTO) 33.3 % (20.0-45.0); MEAN CORPUSCULAR VOLUME 84 FL (80-99); MONOCYTES % (AUTO) 8.8 % (1.0-10.0); PLATELET COUNT 198 K/UL (150-450); RED BLOOD COUNT 4.65 M/UL (4.70-6.10); RED CELL DISTRIBUTION WIDTH 11.7 % (11.6-14.8)
--- NOTE | 2018-08-24 19:33 | Emergency Room Report ---
History of Present Illness General Chief Complaint: General Complaint Source: Patient, Medical Record, EMS Present Illness HPI Patient is a 37-year-old male type I diabetic who presented after increased generalized weakness and inability to eat. The patient reports having had a diminished appetite. He denies any fever. He reports having subjective chills. He denies any vomiting or diarrhea. The patient prior history of CVA as well as chronic low back pain. Allergies: Coded Allergies: HALOPERIDOL (Verified Allergy, Unknown, 07/30/18) Patient History Past Medical History: see triage record, DM Reviewed Nursing Documentation: PMH: Agreed; PSxH: Agreed Nursing Documentation-PM Past Medical History: No History, Except For Hx Hypertension: Yes Hx COPD: Yes Hx Diabetes: Yes - DM2 Hx Cancer: No Hx Gastrointestinal Problems: Yes Hx Neurological Problems: Yes Hx Cerebrovascular Accident: Yes - early Jul 2018 Hx Seizures: Yes Hx Peripheral Neuropathy: Yes Hx Head Trauma: Yes Hx Dizziness: Yes Hx Headaches: Yes Hx Weakness: Yes - left arm, left leg Review of Systems All Other Systems: negative except mentioned in HPI Physical Exam Vital Signs Date Time Temp Pulse Resp B/P (MAP) Pulse Ox O2 Delivery O2 Flow Rate FiO2 08/24/18 16:59 98.6 92 20 111/67 92 Room Air Sp02 EP Interpretation: reviewed, normal General Appearance: normal inspection, well appearing, no apparent distress, alert, obese Head: atraumatic ENT: normal ENT inspection, hearing grossly normal, normal voice Neck: normal inspection, full range of motion, supple, no bony tend Respiratory: normal inspection, lungs clear, normal breath sounds, no respiratory distress, no retraction, no wheezing Cardiovascular #1: regular rate, rhythm, no edema Gastrointestinal: normal inspection, normal bowel sounds, non tender, soft, no guarding, no hernia Genitourinary: no CVA tenderness Musculoskeletal: normal inspection, back normal, normal range of motion Neurologic: normal inspection, alert, oriented x3, responsive, manager center III-XII nml as tested, speech normal Psychiatric: normal inspection, judgement/insight normal, mood/affect normal Skin: normal inspection, normal color, no rash Medical Decision Making Diagnostic Impression: Primary Impression: Diabetes mellitus Additional Impression: Abdominal pain of unknown etiology ER Course Patient presented for generalized weakness. Differential diagnosis included was not limited to anemia, urinary tract infection, electrolyte abnormality, hypothyroidism, myocardial infarction, myasthenia gravis, dehydration, among others. Because of complexity of patient's case laboratory testing and imaging studies were ordered EKG ind by me showed normal sinus rhythm with a rate of [address] or T wave changes.Laboratory testing was notable for hyperglycemia. Patient did not appear to be in diabetic ketoacidosis. Dr. Aniceto Sepulveda was contacted for inpatient management. Labs Test 08/24/18 17:30 White Blood Count 9.0 K/UL (4.8-10.8) Red Blood Count 4.65 M/UL (4.70-6.10) Hemoglobin 13.9 G/DL (14.2-18.0) Hematocrit 39.0 % (42.0-52.0) Mean Corpuscular Volume 84 FL (80-99) Mean Corpuscular Hemoglobin 29.9 PG (27.0-31.0) Mean Corpuscular Hemoglobin Concent 35.7 G/DL (32.0-36.0) Red Cell Distribution Width 11.7 % (11.6-14.8) Platelet Count 198 K/UL (150-450) Mean Platelet Volume 7.7 FL (6.5-10.1) Neutrophils (%) (Auto) 54.0 % (45.0-75.0) Lymphocytes (%) (Auto) 33.3 % (20.0-45.0) Monocytes (%) (Auto) 8.8 % (1.0-10.0) Eosinophils (%) (Auto) 2.4 % (0.0-3.0) Basophils (%) (Auto) 1.5 % (0.0-2.0) Urine Color Pale yellow Urine Appearance Clear Urine pH 7 (4.5-8.0) Urine Specific [place] 1.005 (1.005-1.035) Urine Protein Negative (NEGATIVE) Urine Glucose (UA) Negative (NEGATIVE) Urine Ketones Negative (NEGATIVE) Urine Blood Negative (NEGATIVE) Urine Nitrite Negative (NEGATIVE) Urine Bilirubin Negative (NEGATIVE) Urine Urobilinogen Normal MG/DL (0.0-1.0) Urine Leukocyte Esterase Negative (NEGATIVE) Sodium Level 136 MMOL/L (136-145) Potassium Level 4.0 MMOL/L (3.5-5.1) Chloride Level 100 MMOL/L (98-107) Carbon Dioxide Level 30 MMOL/L (21-32) Anion Gap 6 mmol/L (5-15) Blood Urea Nitrogen 15 mg/dL (7-18) Creatinine 0.9 MG/DL (0.55-1.30) Estimat Glomerular Filtration Rate > 60 mL/min (>60) Glucose Level 240 MG/DL (74-106) Calcium Level 9.2 MG/DL (8.5-10.1) Magnesium Level 1.7 MG/DL (1.8-2.4) Total Bilirubin 0.3 MG/DL (0.2-1.0) Aspartate Amino Transf (AST/SGOT) 13 U/L (15-37) Alanine Aminotransferase (ALT/SGPT) 24 U/L (12-78) Alkaline Phosphatase 60 U/L (46-116) Total Protein 6.5 G/DL (6.4-8.2) Albumin 3.2 G/DL (3.4-5.0) Globulin 3.3 g/dL Albumin/Globulin Ratio 1.0 (1.0-2.7) Acetone Level Negative (NEGATIVE) EKG Diagnostic Results Rate: normal Rhythm: NSR ST Segments: no acute changes Rhythm Strip Diag. Results EP Interpretation: yes Rhythm: NSR, no PVC's, no ectopy Last Vital Signs Date Time Temp Pulse Resp B/P (MAP) Pulse Ox O2 Delivery O2 Flow Rate FiO2 08/24/18 18:25 98.6 08/24/18 17:20 20 101/61 95 Room Air 08/24/18 17:20 95 Status: unchanged Disposition: ADMITTED INPATIENT Condition: Stable Referrals: Aniceto Sepulveda DO (PCP) Prakash Martinez MD Aug 24, 2018 19:33
[2018-08-24 20:50] VITALS: BP 104/60
[2018-08-24] MEDS ORDERED: Morphine Sulfate 2mg/ml Inj IVP PRN (22:15)
[2018-08-24] MEDS ORDERED: Miralax 17gm pkt ORAL PRN ×2 (22:15→23:00)
[2018-08-24] MEDS ORDERED: Zolpidem 5mg tab ORAL PRN (22:15)
[2018-08-24] MEDS ORDERED: Mylanta II UD 30ml ORAL PRN (22:15)
[2018-08-24] MEDS ORDERED: LORazepam Inj 2mg/ml 1ml IV PRN (22:15)
[2018-08-24] MEDS: QUEtiapine 200mg tab ORAL SCH (22:32)
[2018-08-24] MEDS ORDERED: HYDROcodone/Acetamin 10/325 tab ORAL PRN (23:00)
[2018-08-24] MEDS ORDERED: Albuterol/Ipratropium 3ml neb HHN PRN (23:00)
[2018-08-24] MEDS ORDERED: Heparin 5000 units/ml inj SUBQ SCH (23:15)
[2018-08-25] VITALS: BP 105/65
[2018-08-25] MEDS: Morphine Sulfate 2mg/ml Inj IVP PRN ×5 (03:40→21:00)
[2018-08-25 04:00] VITALS: BP 106/52
[2018-08-25] MEDS: NovoLOG Insulin Flexpen SUBQ SCH ×4 (06:25→21:04)
[2018-08-25 08:00] VITALS: BP 128/64
[2018-08-25] MEDS: Aspirin EC 81mg tab ORAL SCH (08:29)
[2018-08-25] MEDS: Depakote 500mg tab ORAL SCH (08:29)
[2018-08-25] MEDS: Metoprolol Succinate XL 25mg tab ORAL SCH (08:34)
[2018-08-25] MEDS: Heparin 5000 units/ml inj SUBQ SCH ×3 (08:36→21:00)
--- NOTE | 2018-08-25 10:59 | GI Initial Consult Note ---
History of Present Illness General Date patient seen: Aug 25, 2018 Time patient seen: 10:51 Reason for Hospitalization: General Complaint Referring physician: INDU KEEN Reason for Consultation: VOMITING Present Illness HPI Patient is a 37-year-old male type I diabetic who presented after increased generalized weakness and inability to eat. The patient reports having had a diminished appetite. He denies any fever. He reports having subjective chills. He denies any vomiting or diarrhea. The patient prior history of CVA as well as chronic low back pain. GI consulted for persistent N/V resulting in decrease PO intake. Pt seen, awake A&Ox4 NAD with no active s/sx of N/V/D. At this time, patient states he was unable to eat anything because it caused him to vomit. He denied any hematemesis or coffee grounds. The patient denies any recent use of tobacco, IVDA or ETOH use. He has a history of diabetes, but is unsure if it is being controlled or not. The patient had a colonoscopy performed back in 2014, noted with an anal fissure and hemorrhoids. Labs reviewed show low magnesium, otherwise unremarkable. Home Meds Reported Medications Divalproex Sodium (Depakote) 500 Mg Tablet.dr, 500 MG PO EVERY MORNING for SEIZURE DISORDER, TAB 08/24/18 Lorazepam* (LORAZEPAM*) 1 Mg Tablet, 1 MG ORAL Q4HR PRN for For Anxiety, TAB 08/24/18 Hydrocodone Bit/Acetaminophen 10-325* (NORCO 10-325*) 1 Each Tablet, 1 TAB ORAL Q4H PRN for For Pain, TAB 0 Refills PRN PAIN 08/24/18 Temazepam* (RESTORIL*) 15 Mg Capsule, 15 MG ORAL BEDTIME PRN for Insomnia, CAP 08/02/18 Polyethylene Glycol 3350* (POLYETHYLENE GLYCOL 3350*) 17 Gm Powd.pack, 17 GM ORAL BEDTIME PRN for Constipation, PACKET 08/02/18 Ondansetron* (ZOFRAN*) 4 Mg Tablet, 4 MG ORAL Q4HR PRN for Nausea & Vomiting, TAB 08/02/18 Nitroglycerin (Nitrostat) 0.4 Mg Tab.subl, 0.4 MG SL q5min x3 doses PRN for Prn Chest Pain, TAB 08/02/18 Insulin Aspart (Novolog Flexpen) 100 Unit/1 Ml Insuln.pen, SUBQ before meals and HS 08/02/18 Heparin Sod (Porcine) (HEPARIN SODIUM*) 5 000/1 Ml Vial, 5000 UNITS SUBQ EVERY 12 HOURS, VIAL 08/02/18 Ipratropium/Albuterol Sulfate (DuoNeb 0.5-3(2.5)mg/3ml) 3 Ml Ampul.neb, 3 ML HHN Q4HR PRN for Shortness of Breath, EA 08/02/18 Clonidine Hcl* (CATAPRES*) 0.1 Mg Tablet, 0.1 MG ORAL Q4HR PRN for For High Blood Pressure, TAB 08/02/18 Acetaminophen* (ACETAMINOPHEN 325MG TABLET*) 325 Mg Tablet, 650 MG ORAL Q4H PRN for fever, TAB 08/02/18 Aspirin* (ASPIR 81*) 81 Mg Tablet.dr, 81 MG ORAL DAILY, TAB 07/29/18 Escitalopram Oxalate* (LEXAPRO*) 10 Mg Tablet, 10 MG ORAL DAILY, TAB 07/29/18 Metoprolol Succinate* (METOPROLOL SUCCINATE*) 25 Mg Tab.er.24h, 25 MG ORAL DAILY 07/29/18 Quetiapine Fumarate* (SEROQUEL*) 200 Mg Tablet, 200 MG ORAL BEDTIME, TAB 04/17/18 Divalproex Sodium* (DEPAKOTE*) 250 Mg Tablet.dr, 500 MG PO BEDTIME for seizure disorder, TAB 07/28/17 Discontinued Reported Medications Nicotine 14MG Patch* (NICODERM CQ 14MG*) 1 Each Patch.td24, 1 EACH TD DAILY, EA 08/02/18 Morphine Sulfate* (MORPHINE SULFATE*) 2 Mg/1 Ml Cartridge, 2 MG IV Q4HR for pain , EA 08/02/18 Lorazepam* (LORAZEPAM*) 2 Mg/1 Ml Vial, 0.5 MG IV Q4H PRN for For Anxiety, VIAL 08/02/18 Al Hydroxide/mg Hydroxide (Mag-Al Plus Suspension) 30 Ml Oral.susp, 30 ML PO Q6HR PRN for UPSET STOMACH, ML 08/02/18 Med list reviewed/reconciled: Yes Allergies: Coded Allergies: HALOPERIDOL (Verified Allergy, Unknown, 07/30/18) Patient History History Provided By: Patient, Medical Record PMH Narrative Past Medical History: see triage record, DM Reviewed Nursing Documentation: PMH: Agreed; PSxH: Agreed Nursing Documentation-PMH Past Medical History: No History, Except For Hx Hypertension: Yes Hx COPD: Yes Hx Diabetes: Yes - DM2 Hx Cancer: No Hx Gastrointestinal Problems: Yes Hx Neurological Problems: Yes Hx Cerebrovascular Accident: Yes - early Jul 2018 Hx Seizures: Yes Hx Peripheral Neuropathy: Yes Hx Head Trauma: Yes Hx Dizziness: Yes Hx Headaches: Yes Hx Weakness: Yes - left arm, left leg Social History: Denies: smoking, alcohol use, drug use, other Review of Systems All Other Systems: negative except mentioned in HPI Physical Exam Vital Signs Date Time Temp Pulse Resp B/P (MAP) Pulse Ox O2 Delivery O2 Flow Rate FiO2 08/24/18 16:59 98.6 92 20 111/67 92 Room Air Sp02 EP Interpretation: reviewed, normal Labs Laboratory Tests Test 08/24/18 17:30 White Blood Count 9.0 K/UL (4.8-10.8) Red Blood Count 4.65 M/UL (4.70-6.10) L Hemoglobin 13.9 G/DL (14.2-18.0) L Hematocrit 39.0 % (42.0-52.0) L Mean Corpuscular Volume 84 FL (80-99) Mean Corpuscular Hemoglobin 29.9 PG (27.0-31.0) Mean Corpuscular Hemoglobin Concent 35.7 G/DL (32.0-36.0) Red Cell Distribution Width 11.7 % (11.6-14.8) Platelet Count 198 K/UL (150-450) Mean Platelet Volume 7.7 FL (6.5-10.1) Neutrophils (%) (Auto) 54.0 % (45.0-75.0) Lymphocytes (%) (Auto) 33.3 % (20.0-45.0) Monocytes (%) (Auto) 8.8 % (1.0-10.0) Eosinophils (%) (Auto) 2.4 % (0.0-3.0) Basophils (%) (Auto) 1.5 % (0.0-2.0) Urine Color Pale yellow Urine Appearance Clear Urine pH 7 (4.5-8.0) Urine Specific [place] 1.005 (1.005-1.035) Urine Protein Negative (NEGATIVE) Urine Glucose (UA) Negative (NEGATIVE) Urine Ketones Negative (NEGATIVE) Urine Blood Negative (NEGATIVE) Urine Nitrite Negative (NEGATIVE) Urine Bilirubin Negative (NEGATIVE) Urine Urobilinogen Normal MG/DL (0.0-1.0) Urine Leukocyte Esterase Negative (NEGATIVE) Sodium Level 136 MMOL/L (136-145) Potassium Level 4.0 MMOL/L (3.5-5.1) Chloride Level 100 MMOL/L (98-107) Carbon Dioxide Level 30 MMOL/L (21-32) Anion Gap 6 mmol/L (5-15) Blood Urea Nitrogen 15 mg/dL (7-18) Creatinine 0.9 MG/DL (0.55-1.30) Estimat Glomerular Filtration Rate > 60 mL/min (>60) Glucose Level 240 MG/DL (74-106) H Calcium Level 9.2 MG/DL (8.5-10.1) Magnesium Level 1.7 MG/DL (1.8-2.4) L Total Bilirubin 0.3 MG/DL (0.2-1.0) Aspartate Amino Transf (AST/SGOT) 13 U/L (15-37) L Alanine Aminotransferase (ALT/SGPT) 24 U/L (12-78) Alkaline Phosphatase 60 U/L (46-116) Total Protein 6.5 G/DL (6.4-8.2) Albumin 3.2 G/DL (3.4-5.0) L Globulin 3.3 g/dL Albumin/Globulin Ratio 1.0 (1.0-2.7) Acetone Level Negative (NEGATIVE) General Appearance: well appearing, no apparent distress, alert Head: normocephalic EENT: PERRL/EOMI, normal ENT inspection Neck: supple Respiratory: normal breath sounds, no respiratory distress Cardiovascular: normal rate Gastrointestinal: normal inspection, non tender, soft, normal bowel sounds, non -distended Rectal: deferred Genitourinary: deferred Musculoskeletal: normal inspection, back normal Neurologic: normal inspection, alert, oriented x3, responsive Psychiatric: normal inspection, judgement/insight normal, memory normal Skin: normal inspection, normal color, no rash, warm/dry, palpation normal, well hydrated Lymphatic: normal inspection, no adenopathy Current Medications Current Medications Medications (Trade) Dose Ordered Sig/Sofia Route PRN Reason Start Time Stop Time Status Last Admin Dose Admin Acetaminophen (Tylenol) 650 mg Q4H PRN ORAL fever 08/24/18 22:15 09/23/18 22:14 Acetaminophen/ Hydrocodone Bitart ([place] 10325) 1 tab Q4H PRN ORAL Pain 4-6 08/25/18 00:45 09/01/18 00:44 Al Hydroxide/Mg Hydroxide (Mylanta II) 30 ml Q6H PRN ORAL dyspepsia 08/24/18 22:15 09/23/18 22:14 Albuterol/ Ipratropium (Albuterol/ Ipratropium) 3 ml Q4HR PRN HHN Shortness of Breath 08/24/18 23:00 08/29/18 22:59 Aspirin (Ecotrin) 81 mg DAILY ORAL 08/25/18 09:00 09/24/18 08:59 08/25/18 08:29 Clonidine HCl (Catapres Tab) 0.1 mg Q4H PRN ORAL For High Blood Pressure 08/24/18 22:15 09/23/18 22:14 Dextrose (Dextrose 50%) STAT PRN IV Hypoglycemia 08/24/18 22:15 09/23/18 22:14 Dextrose (Dextrose 50%) STAT PRN IV Hypoglycemia 08/24/18 22:15 09/23/18 22:14 Divalproex Sodium (Depakote) 500 mg DAILY ORAL 08/25/18 09:00 09/24/18 08:59 08/25/18 08:29 Escitalopram Oxalate (Lexapro) 10 mg DAILY ORAL 08/25/18 09:00 09/24/18 08:59 08/25/18 08:29 Heparin Sodium (Porcine) (Heparin 5000 units/ml) 5,000 units EVERY 12 HOURS SUBQ 08/25/18 09:00 09/24/18 08:59 Insulin Aspart (NovoLOG) BEFORE MEALS AND HS SUBQ 08/25/18 06:30 09/24/18 06:29 08/25/18 06:25 Lorazepam (Ativan 2mg/ml 1ml) 0.5 mg Q4H PRN IV For Anxiety 08/24/18 22:15 08/31/18 22:14 Metoprolol Succinate (Toprol XL) 25 mg DAILY ORAL 08/25/18 09:00 09/24/18 08:59 08/25/18 08:34 Morphine Sulfate (Morphine Sulfate) 1 mg Q4H PRN IVP Pain 7-10 08/25/18 00:30 09/01/18 00:29 08/25/18 08:34 Ondansetron HCl (Zofran) 4 mg Q6H PRN IVP Nausea & Vomiting 08/24/18 22:15 09/23/18 22:14 Polyethylene Glycol (Miralax) 17 gm BEDTIME PRN ORAL Constipation 08/24/18 23:00 09/23/18 22:59 Quetiapine Fumarate (SEROquel) 200 mg BEDTIME ORAL 08/24/18 22:30 09/23/18 22:29 08/24/18 22:32 Sodium Chloride 1,000 ml @ 60 mls/hr [id number] IV 08/24/18 23:45 09/23/18 23:44 08/24/18 23:55 Temazepam (Restoril) 15 mg BEDTIME PRN ORAL Insomnia 08/25/18 06:34 09/01/18 06:33 Zolpidem Tartrate (Ambien) 5 mg HSPRN PRN ORAL Insomnia 08/24/18 22:15 08/31/18 22:14 GI: Plan Problems: (1) Gastroparesis due to DM (2) Malnutrition (3) General weakness (4) Dehydration (5) Intractable abdominal pain (6) Gastroenteritis (7) Opioid dependence Plan symptomatic treatment, will consider endoscopy if vomiting not controlled by medical management ADA diet zofran prn, reglan for persistent vomiting PO/IV hydration + electrolyte correction ppi fu labs, HgA1C, lipase, utox Discussed with Dr. Strange. Thank you for this patient referral, we will follow. The patient was seen and examined at bedside and all new and available data was reviewed in the patients chart. I agree with the above findings, impression and plan. (Patient seen earlier today. Signature stamp does not reflect patient encounter time.). - MD Breanne Martinez,[facility] [employer] Aug 25, 2018 10:59
--- NOTE | 2018-08-25 11:20 | Consultation ---
History of Present Illness General Date patient seen: Aug 25, 2018 Chief Complaint: General Complaint Referring physician: INDU KEEN Reason for Consultation: VOMITING Present Illness HPI 37-year-old male with hx of type I diabetic, seizure disorder, psychiatric history presented ot ER after increased generalized weakness and inability to eat. The patient reports having had a diminished appetite. He denies any fever. He reports having subjective chills. He denies any vomiting or diarrhea. pt is admitted for further work up. Allergies: Coded Allergies: HALOPERIDOL (Verified Allergy, Unknown, 07/30/18) Medication History Scheduled Aspirin* (Aspir 81*), 81 MG ORAL DAILY, (Reported) Divalproex Sodium (Depakote), 500 MG PO EVERY MORNING , (Reported) Divalproex Sodium* (Depakote*), 500 MG PO BEDTIME, (Reported) Escitalopram Oxalate* (Lexapro*), 10 MG ORAL DAILY, (Reported) Heparin Sod (Porcine) (Heparin Sodium*), 5,000 UNITS SUBQ EVERY 12 HOURS, ( Reported) Metoprolol Succinate* (Metoprolol Succinate*), 25 MG ORAL DAILY , (Reported) Quetiapine Fumarate* (Seroquel*), 200 MG ORAL BEDTIME, (Reported) Scheduled PRN Acetaminophen* (Acetaminophen 325MG Tablet*), 650 MG ORAL Q4H PRN for fever, ( Reported) Clonidine Hcl* (Catapres*), 0.1 MG ORAL Q4HR PRN for For High Blood Pressure, ( Reported) Hydrocodone Bit/Acetaminophen 10-325* ([place] 10-325*), 1 TAB ORAL Q4H PRN for For Pain, (Reported) Ipratropium/Albuterol Sulfate (DuoNeb 0.5-3(2.5)mg/3ml), 3 ML HHN Q4HR PRN for Shortness of Breath, (Reported) Lorazepam* (Lorazepam*), 1 MG ORAL Q4HR PRN for For Anxiety, (Reported) Nitroglycerin (Nitrostat), 0.4 MG SL q5min x3 doses PRN for Prn Chest Pain, ( Reported) Ondansetron* (Zofran*), 4 MG ORAL Q4HR PRN for Nausea & Vomiting, (Reported) Polyethylene Glycol 3350* (Polyethylene Glycol 3350*), 17 GM ORAL BEDTIME PRN for Constipation, (Reported) Temazepam* (Restoril*), 15 MG ORAL BEDTIME PRN for Insomnia, (Reported) Miscellaneous Medications Insulin Aspart (Novolog Flexpen), SUBQ, (Reported) Discontinued Medications Al Hydroxide/mg Hydroxide (Mag-Al Plus Suspension), 30 ML PO Q6HR PRN for UPSET STOMACH, (Reported) Discontinued Reason: Pt stopped taking med Lorazepam* (Lorazepam*), 0.5 MG IV Q4H PRN for For Anxiety, (Reported) Discontinued Reason: Prescription changed Morphine Sulfate* (Morphine Sulfate*), 2 MG IV Q4HR, (Reported) Discontinued Reason: Therapy completed Nicotine 14MG Patch* (Nicoderm Cq 14MG*), 1 EACH TD DAILY, (Reported) Discontinued Reason: Therapy completed Patient History Healthcare decision maker Resuscitation status Full Code Advanced Directive on File No Past Medical/Surgical History Past Medical/Surgical History: (1) Gastroparesis due to DM (2) Noncompliance (3) CVA (cerebral vascular accident) (4) COPD (chronic obstructive pulmonary disease) (5) Psychosomatic disorder (6) Anxiety (7) Diabetes mellitus Review of Systems Constitutional: Reports: malaise, weakness Physical Exam General Appearance: WD/WN, alert Lines, tubes and drains: peripheral HEENT: normocephalic, atraumatic Neck: non-tender, normal alignment Respiratory/Chest: chest wall non-tender, lungs clear Breasts: no masses Cardiovascular/Chest: normal peripheral pulses Abdomen: normal bowel sounds, non tender Genitourinary/Rectal: normal rectal exam Extremities: normal range of motion Last 24 Hour Vital Signs Date Time Temp Pulse Resp B/P (MAP) Pulse Ox O2 Delivery O2 Flow Rate FiO2 08/25/18 08:34 87 128/67 08/25/18 08:00 97.0 87 18 128/64 (85) 97 08/25/18 07:43 89 18 Room Air 08/25/18 04:00 98.2 87 20 106/52 (70) 99 08/25/18 00:00 98.6 85 19 105/65 (78) 95 08/24/18 21:38 Room Air 08/24/18 20:50 97.7 79 19 104/60 (75) 94 08/24/18 20:50 97.8 78 19 102/61 94 Room Air 08/24/18 18:25 98.6 08/24/18 17:20 98.6 20 101/61 95 Room Air 08/24/18 17:20 95 20 Room Air 08/24/18 16:59 98.6 92 20 111/67 92 Room Air Intake and Output 08/24/18 08/25/18 19:00 07:00 Intake Total 0 ml 1020 ml Output Total 800 ml 1100 ml Balance -800 ml -80 ml Intake Oral 0 ml 450 ml IV Total 420 ml Tube Feeding 150 ml Output Urine Total 800 ml 1100 ml Laboratory Tests Test 08/24/18 17:30 White Blood Count 9.0 K/UL (4.8-10.8) Red Blood Count 4.65 M/UL (4.70-6.10) L Hemoglobin 13.9 G/DL (14.2-18.0) L Hematocrit 39.0 % (42.0-52.0) L Mean Corpuscular Volume 84 FL (80-99) Mean Corpuscular Hemoglobin 29.9 PG (27.0-31.0) Mean Corpuscular Hemoglobin Concent 35.7 G/DL (32.0-36.0) Red Cell Distribution Width 11.7 % (11.6-14.8) Platelet Count 198 K/UL (150-450) Mean Platelet Volume 7.7 FL (6.5-10.1) Neutrophils (%) (Auto) 54.0 % (45.0-75.0) Lymphocytes (%) (Auto) 33.3 % (20.0-45.0) Monocytes (%) (Auto) 8.8 % (1.0-10.0) Eosinophils (%) (Auto) 2.4 % (0.0-3.0) Basophils (%) (Auto) 1.5 % (0.0-2.0) Urine Color Pale yellow Urine Appearance Clear Urine pH 7 (4.5-8.0) Urine Specific [place] 1.005 (1.005-1.035) Urine Protein Negative (NEGATIVE) Urine Glucose (UA) Negative (NEGATIVE) Urine Ketones Negative (NEGATIVE) Urine Blood Negative (NEGATIVE) Urine Nitrite Negative (NEGATIVE) Urine Bilirubin Negative (NEGATIVE) Urine Urobilinogen Normal MG/DL (0.0-1.0) Urine Leukocyte Esterase Negative (NEGATIVE) Sodium Level 136 MMOL/L (136-145) Potassium Level 4.0 MMOL/L (3.5-5.1) Chloride Level 100 MMOL/L (98-107) Carbon Dioxide Level 30 MMOL/L (21-32) Anion Gap 6 mmol/L (5-15) Blood Urea Nitrogen 15 mg/dL (7-18) Creatinine 0.9 MG/DL (0.55-1.30) Estimat Glomerular Filtration Rate > 60 mL/min (>60) Glucose Level 240 MG/DL (74-106) H Calcium Level 9.2 MG/DL (8.5-10.1) Magnesium Level 1.7 MG/DL (1.8-2.4) L Total Bilirubin 0.3 MG/DL (0.2-1.0) Aspartate Amino Transf (AST/SGOT) 13 U/L (15-37) L Alanine Aminotransferase (ALT/SGPT) 24 U/L (12-78) Alkaline Phosphatase 60 U/L (46-116) Total Protein 6.5 G/DL (6.4-8.2) Albumin 3.2 G/DL (3.4-5.0) L Globulin 3.3 g/dL Albumin/Globulin Ratio 1.0 (1.0-2.7) Acetone Level Negative (NEGATIVE) Height (Feet): 5 Height (Inches): 11.00 Weight (Pounds): 263 Medications Current Medications Medications (Trade) Dose Ordered Sig/Sofia Route PRN Reason Start Time Stop Time Status Last Admin Dose Admin Acetaminophen (Tylenol) 650 mg Q4H PRN ORAL fever 08/24/18 22:15 09/23/18 22:14 Acetaminophen/ Hydrocodone Bitart ([place] 10) 1 tab Q4H PRN ORAL Pain 4-6 08/25/18 00:45 09/01/18 00:44 Al Hydroxide/Mg Hydroxide (Mylanta II) 30 ml Q6H PRN ORAL dyspepsia 08/24/18 22:15 09/23/18 22:14 Albuterol/ Ipratropium (Albuterol/ Ipratropium) 3 ml Q4HR PRN HHN Shortness of Breath 08/24/18 23:00 08/29/18 22:59 Aspirin (Ecotrin) 81 mg DAILY ORAL 08/25/18 09:00 09/24/18 08:59 08/25/18 08:29 Clonidine HCl (Catapres Tab) 0.1 mg Q4H PRN ORAL For High Blood Pressure 08/24/18 22:15 09/23/18 22:14 Dextrose (Dextrose 50%) STAT PRN IV Hypoglycemia 08/24/18 22:15 09/23/18 22:14 Dextrose (Dextrose 50%) STAT PRN IV Hypoglycemia 08/24/18 22:15 09/23/18 22:14 Divalproex Sodium (Depakote) 500 mg DAILY ORAL 08/25/18 09:00 09/24/18 08:59 08/25/18 08:29 Escitalopram Oxalate (Lexapro) 10 mg DAILY ORAL 08/25/18 09:00 09/24/18 08:59 08/25/18 08:29 Heparin Sodium (Porcine) (Heparin 5000 units/ml) 5,000 units EVERY 12 HOURS SUBQ 08/25/18 09:00 09/24/18 08:59 Insulin Aspart (NovoLOG) BEFORE MEALS AND HS SUBQ 08/25/18 06:30 09/24/18 06:29 08/25/18 06:25 Lorazepam (Ativan 2mg/ml 1ml) 0.5 mg Q4H PRN IV For Anxiety 08/24/18 22:15 08/31/18 22:14 Magnesium Sulfate 100 ml @ 100 mls/hr Q1H IVPB 08/25/18 11:30 08/25/18 13:29 Metoprolol Succinate (Toprol XL) 25 mg DAILY ORAL 08/25/18 09:00 09/24/18 08:59 08/25/18 08:34 Morphine Sulfate (Morphine Sulfate) 1 mg Q4H PRN IVP Pain 7-10 08/25/18 00:30 09/01/18 00:29 08/25/18 08:34 Ondansetron HCl (Zofran) 4 mg Q6H PRN IVP Nausea & Vomiting 08/24/18 22:15 09/23/18 22:14 Polyethylene Glycol (Miralax) 17 gm BEDTIME PRN ORAL Constipation 08/24/18 23:00 09/23/18 22:59 Quetiapine Fumarate (SEROquel) 200 mg BEDTIME ORAL 08/24/18 22:30 09/23/18 22:29 08/24/18 22:32 Sodium Chloride 1,000 ml @ 60 mls/hr [id number] IV 08/24/18 23:45 09/23/18 23:44 08/24/18 23:55 Temazepam (Restoril) 15 mg BEDTIME PRN ORAL Insomnia 08/25/18 06:34 09/01/18 06:33 Zolpidem Tartrate (Ambien) 5 mg HSPRN PRN ORAL Insomnia 08/24/18 22:15 08/31/18 22:14 Assessment/Plan Problem List: (1) COPD (chronic obstructive pulmonary disease) ICD Codes: J44.9 - Chronic obstructive pulmonary disease, unspecified SNOMED: 66998431 (2) Psychosomatic disorder ICD Codes: F45.9 - Somatoform disorder, unspecified SNOMED: 66718774 (3) Diabetes mellitus ICD Codes: E11.9 - Diabetes mellitus SNOMED: 38884652 (4) Peripheral neuropathy ICD Codes: G62.9 - Peripheral neuropathy SNOMED: 48191951 (5) Morbid obesity with BMI of 40.0-44.9, adult ICD Codes: E66.01 - Morbid (severe) obesity due to excess calories; Z68.41 - Body mass index (BMI) 40.0-44.9, adult SNOMED: 798093454 (6) Gastroparesis due to DM ICD Codes: E11.43 - Type 2 diabetes mellitus with diabetic autonomic (poly) neuropathy; K31.84 - Gastroparesis SNOMED: 25861162, 878299807 (7) Noncompliance ICD Codes: Z91.19 - Patient's noncompliance with other medical treatment and regimen SNOMED: 8474006 Assessment/Plan respiratory treatment symptomatic treatment GI evaluation sliding scale dvt prophylaxis/ Lashanda Pham MD Aug 25, 2018 11:20
[2018-08-25 12:00] VITALS: BP 113/81
[2018-08-25 12:01] LABS: EOSINOPHILS % (AUTO) 2.4 % (0.0-3.0); HEMATOCRIT 40.1 % (42.0-52.0); HEMOGLOBIN 14.3 G/DL (14.2-18.0); LYMPHOCYTES % (AUTO) 31.2 % (20.0-45.0); MEAN CORPUSCULAR VOLUME 84 FL (80-99); MONOCYTES % (AUTO) 9.5 % (1.0-10.0); PLATELET COUNT 179 K/UL (150-450); RED BLOOD COUNT 4.78 M/UL (4.70-6.10); RED CELL DISTRIBUTION WIDTH 11.7 % (11.6-14.8); WHITE BLOOD COUNT 7.6 K/UL (4.8-10.8)
[2018-08-25 12:18] LABS: ALANINE AMINOTRANSFERASE 24 U/L (12-78); ALBUMIN 3.1 G/DL (3.4-5.0); ALBUMIN/GLOBULIN RATIO 0.9 (1.0-2.7); ALKALINE PHOSPHATASE 59 U/L (46-116); ANION GAP 8 mmol/L (5-15); ASPARTATE AMINO TRANSFERASE 12 U/L (15-37); BILIRUBIN,TOTAL 0.3 MG/DL (0.2-1.0); BLOOD UREA NITROGEN 17 mg/dL (7-18); CALCIUM 8.5 MG/DL (8.5-10.1); CARBON DIOXIDE 26 MMOL/L (21-32); CHLORIDE 102 MMOL/L (98-107); CHOLESTEROL 102 MG/DL (< 200); CREATININE 0.9 MG/DL (0.55-1.30); HDL CHOLESTEROL 29 MG/DL (40-60); POTASSIUM 4.2 MMOL/L (3.5-5.1); SODIUM 136 MMOL/L (136-145); TRIGLYCERIDES 139 MG/DL (30-150)
--- NOTE | 2018-08-25 15:30 | Diagnostic Imaging Report ---
APPROVED REPORT CPT Code: 65342 Present Symptoms Comments: Pain BILATERAL: Imaging reveals a patent deep venous system bilaterally. There is no evidence of thrombus within the femoral, popliteal or tibial segments. The greater saphenous veins are also within normal limits. Doppler indicates normal spontaneous flow within these segments.
[2018-08-25 16:00] VITALS: BP 110/63
[2018-08-25 20:00] VITALS: BP 122/67
[2018-08-25] MEDS: QUEtiapine 200mg tab ORAL SCH ×2 (21:01→22:08)
--- NOTE | 2018-08-25 21:30 | History and Physical Report ---
DATE OF ADMISSION: 08/24/2018 TIME SEEN: On 08/25/2018 at 1 p.m. CONSULTANTS: 1. Lashanda Pham M.D. 2. Antonio Napier M.D. 3. Robin Strange M.D. 4. Charmaine Victor M.D. CHIEF COMPLAINT: Nausea and vomiting for 4 days, failure to thrive, weakness. BRIEF HISTORY: This is a 37-year-old male from [facility], who presents with the above-mentioned diagnoses, seen in the ER, admitted to medical floor for further treatment. Currently, slightly weak, slight nausea and vomiting, no diarrhea. PAST MEDICAL HISTORY: Includes hypertension, COPD, diabetes, and CVA. PAST SURGICAL HISTORY: Back and neck. ALLERGIES: Haldol. MEDICATIONS: Include magnesium, aspirin, divalproex, escitalopram, metoprolol, heparin, temazepam, insulin, hydrocodone, morphine, albuterol, quetiapine. SOCIAL HISTORY: Positive smoking. No alcohol. No intravenous drug abuse. FAMILY HISTORY: Noncontributory. PHYSICAL EXAMINATION: GENERAL: calm in bed, oriented x3, slight distress. VITAL SIGNS: Temperature is 97 degrees, pulse 85, respirations 18, blood pressure 113/81. CARDIOVASCULAR: No murmur. LUNGS: Distant and clear. ABDOMEN: Bowel sounds positive. Nontender, nondistended. EXTREMITIES: Show no cyanosis or edema. NEUROLOGIC: The patient moves all extremities, slightly weak. LABORATORY AND DIAGNOSTIC DATA: Labs at this time show CBC is normal. Glucose is 234, otherwise BMP is normal. Albumin 3.1. Urinalysis is negative. Urine-tox acetone is negative. ASSESSMENT: Nausea, vomiting, failure to thrive, weakness, back pain, hypertension, diabetes, CVA, COPD. PLAN: OT, PT, dietary evaluation. Pain control. CBC and BMP in the morning. Jb haney Blood pressure and blood sugar control. We will continue to follow this patient. Aniceto Sepulveda D.O. DR: Keri JOB#: [id number] CC:
[2018-08-26] MEDS: Morphine Sulfate 2mg/ml Inj IVP PRN ×6 (01:57→22:08)
[2018-08-26 04:00] VITALS: BP 109/59
[2018-08-26] MEDS: NovoLOG Insulin Flexpen SUBQ SCH ×5 (06:00→21:29)
--- NOTE | 2018-08-26 06:30 | Consultation ---
DATE OF CONSULTATION: 08/25/2018 PSYCHOTHERAPY CONSULTATION PROGRESS NOTE CONSULTING PHYSICIAN: Juan Chinchilla PsyD. TREATING ATTENDING PHYSICIAN: Aniceto Sepulveda D.O. HISTORY OF PRESENT ILLNESS: This patient is a 37-year-old male patient. The patient is brought into the hospital for weakness. He does have a history of schizoaffective disorder, bipolar type. This patient has , and for these reasons, he was referred for psychotherapeutic services. Since , the patient states that he is not doing well. He states that very weak. He is sleep. His mood has been very down and that he has been very helpless, hopeless, does not and is very tearful with this. He denies any suicidal or homicidal thoughts of ideation. Denies any auditory or visual hallucinations at this time. He . The patient is still confused, cooperative . Denies . The patient at this time . PAST MEDICAL HISTORY: Includes a history of lower back pain and CVA. ALLERGIES: The patient is allergic to haloperidol. SUBSTANCE ABUSE HISTORY: There is no history of alcohol use or illicit substance use . PSYCHIATRIC HISTORY: The patient has a history of schizoaffective disorder and has been treated with psychotropic medications in the past. SOCIAL HISTORY: The patient is a 37-year-old male patient financially sustained through [employer]. MENTAL STATUS EXAMINATION: The patient is alert and oriented to person and place. Mood is dysphoric. Affect is blunted. Thought process is disorganized. Thought content poor attention and concentration. Poor insight, judgment, and impulse control. DIAGNOSES: AXIS I Schizoaffective disorder, bipolar type. AXIS II Deferred. AXIS III Per H and P. PLAN: This clinician assessed this patient, provided the patient with supportive psychotherapy and coping skills such as . This clinician has reviewed the patient's chart and discussed the treatment with treatment team. Juan Chinchilla PsyD. DR: BESSIE JOB#: [id number] CC:
[2018-08-26 08:00] VITALS: BP 107/62
[2018-08-26] MEDS: Metoprolol Succinate XL 25mg tab ORAL SCH (08:40)
[2018-08-26] MEDS: Depakote 500mg tab ORAL SCH (08:40)
[2018-08-26] MEDS: Aspirin EC 81mg tab ORAL SCH (08:40)
[2018-08-26] MEDS: HYDROcodone/Acetamin 10/325 tab ORAL PRN (08:41)
[2018-08-26] MEDS: Heparin 5000 units/ml inj SUBQ SCH ×2 (08:42→21:29)
--- NOTE | 2018-08-26 08:48 | General Progress Note ---
Assessment/Plan Assessment/Plan (1) Chiari malformation type II (2) Degenerative disc disease, cervical (3) Lumbar degenerative disc disease (4) Arthritis, lumbar spine (5) Peripheral neuropathy (6) Hydrocephalus (7) Diabetes mellitus Pt will be continued on Morphine and [place]. Pt was d/w Dr. Napier and he concurred. Subjective Date patient seen: Aug 26, 2018 Time patient seen: 07:00 - am Allergies: Coded Allergies: HALOPERIDOL (Verified Allergy, Unknown, 07/30/18) Subjective Constitutional: Reports: weakness, Denies: chills, diaphoresis, fever, malaise , no symptoms, other HEENT: Denies: blurred vision, double vision, ear discharge, ear pain, eye pain , mouth pain, mouth swelling, no symptoms, nose congestion, nose pain, other, tearing, throat pain, throat swelling Cardiovascular: Denies: chest pain, edema, irregular heart rate, lightheadedness, no symptoms, other, palpitations, syncope Respiratory: Denies: SOB at rest, SOB with excertion, cough, no symptoms, orthopnea, other, shortness of breath, sputum, stridor, wheezing Gastrointestinal/Abdominal: Denies: abdomen distended, abdominal pain, black stools, blood in stool, constipated, diarrhea, difficulty swallowing, nausea, no symptoms, other, poor appetite, poor fluid intake, rectal bleeding, tarry stools, vomiting Genitourinary: Denies: burning, discharge, flank pain, frequency, hematuria, incontinence, no symptoms, other, pain, urgency Neurologic/Psychiatric: Reports: headache, numbness, tingling, weakness, Denies : anxiety, depressed, emotional problems, no symptoms, other, paresthesia, pre- existing deficit, seizure, tremors Endocrine: Denies: excessive sweating, flushing, increased hunger, increased thirst, increased urine, intolerance to cold, intolerance to heat, no symptoms, other, unexplained weight gain, unexplained weight loss Hematologic/Lymphatic: Denies: anemia, easy bleeding, easy bruising, no symptoms, other Subjective Patient is a known patient and has been admitted under the care of Dr. Sepulveda. C/ o pain, Started on Morphine 1mg IV Q4H PRN severe pain and [place] 10/325mg PO 1 tab Q4H PRN moderate pain. Pain is tolerated on the medications. Objective Last 24 Hour Vital Signs Date Time Temp Pulse Resp B/P (MAP) Pulse Ox O2 Delivery O2 Flow Rate FiO2 08/26/18 08:40 82 107/62 08/26/18 08:05 Room Air 08/26/18 08:00 97.7 82 20 107/62 (77) 94 08/26/18 04:00 76 20 109/59 (76) 95 08/25/18 21:00 Room Air 08/25/18 20:08 82 16 Room Air 08/25/18 20:00 98.0 86 20 122/67 (85) 96 08/25/18 16:00 97.0 83 18 110/63 (79) 95 08/25/18 12:00 97.9 85 18 113/81 (92) 95 08/25/18 09:00 Room Air Intake and Output 08/25/18 08/26/18 19:00 07:00 Intake Total 1036 ml 720 ml Output Total 725 ml 1200 ml Balance 311 ml -480 ml Intake Oral 236 ml IV Total 800 ml 720 ml Output Urine Total 725 ml 1200 ml # Voids 1 3 Laboratory Tests 08/25/18 11:35: White Blood Count 7.6, Red Blood Count 4.78, Hemoglobin 14.3, Hematocrit 40.1L, Mean Corpuscular Volume 84, Mean Corpuscular Hemoglobin 29.8, Mean Corpuscular Hemoglobin Concent 35.6, Red Cell Distribution Width 11.7, Platelet Count 179, Mean Platelet Volume 8.0, Neutrophils (%) (Auto) 56.0, Lymphocytes (%) (Auto) 31.2, Monocytes (%) (Auto) 9.5, Eosinophils (%) (Auto) 2.4, Basophils (%) (Auto ) 1.0, Sodium Level 136, Potassium Level 4.2, Chloride Level 102, Carbon Dioxide Level 26, Anion Gap 8, Blood Urea Nitrogen 17, Creatinine 0.9, Estimat Glomerular Filtration Rate > 60, Glucose Level 234H, Calcium Level 8.5, Total Bilirubin 0.3, Aspartate Amino Transf (AST/SGOT) 12L, Alanine Aminotransferase ( ALT/SGPT) 24, Alkaline Phosphatase 59, Total Protein 6.4, Albumin 3.1L, Globulin 3.3, Albumin/Globulin Ratio 0.9L, Triglycerides Level 139, Cholesterol Level 102, LDL Cholesterol 55, HDL Cholesterol 29L, Cholesterol/HDL Ratio 3.5, Thyroid Stimulating Hormone (TSH) 1.416 08/25/18 19:02: Urine Opiates Screen Negative, Urine Barbiturates Screen Negative, Phencyclidine (PCP) Screen Negative, Urine Amphetamines Screen Negative, Urine Benzodiazepines Screen Negative, Urine Cocaine Screen Negative, Urine Marijuana (THC) Screen Negative Height (Feet): 5 Height (Inches): 11.00 Weight (Pounds): 263 Joao Munoz Aug 26, 2018 08:48
[2018-08-26 09:34] LABS: BASOPHILS % (AUTO) 0.7 % (0.0-2.0); EOSINOPHILS % (AUTO) 2.1 % (0.0-3.0); HEMATOCRIT 40.8 % (42.0-52.0); HEMOGLOBIN 14.2 G/DL (14.2-18.0); LYMPHOCYTES % (AUTO) 29.2 % (20.0-45.0); MEAN CORPUSCULAR VOLUME 84 FL (80-99); MONOCYTES % (AUTO) 7.2 % (1.0-10.0); NEUTROPHILS % (AUTO) 60.8 % (45.0-75.0); PLATELET COUNT 158 K/UL (150-450); RED BLOOD COUNT 4.88 M/UL (4.70-6.10); RED CELL DISTRIBUTION WIDTH 11.8 % (11.6-14.8); WHITE BLOOD COUNT 8.8 K/UL (4.8-10.8)
[2018-08-26 10:13] LABS: ALANINE AMINOTRANSFERASE 24 U/L (12-78); ALBUMIN/GLOBULIN RATIO 0.9 (1.0-2.7); ALKALINE PHOSPHATASE 60 U/L (46-116); ANION GAP 6 mmol/L (5-15); ASPARTATE AMINO TRANSFERASE 13 U/L (15-37); BILIRUBIN,TOTAL 0.4 MG/DL (0.2-1.0); BLOOD UREA NITROGEN 18 mg/dL (7-18); CALCIUM 8.6 MG/DL (8.5-10.1); CARBON DIOXIDE 27 MMOL/L (21-32); CHLORIDE 101 MMOL/L (98-107); CREATININE 0.9 MG/DL (0.55-1.30); POTASSIUM 3.7 MMOL/L (3.5-5.1); SODIUM 134 MMOL/L (136-145)
--- NOTE | 2018-08-26 11:24 | GI Progress Note ---
Assessment/Plan Problems: (1) Dehydration ICD Codes: E86.0 - Dehydration SNOMED: 27953209 (2) Intractable abdominal pain ICD Codes: R10.9 - Unspecified abdominal pain SNOMED: 94887303 (3) Gastroenteritis ICD Codes: K52.9 - Gastroenteritis SNOMED: 94664061 (4) Gastroparesis due to DM ICD Codes: E11.43 - Type 2 diabetes mellitus with diabetic autonomic (poly) neuropathy; K31.84 - Gastroparesis SNOMED: 30093961, 820662879 (5) Diabetes mellitus ICD Codes: E11.9 - Diabetes mellitus SNOMED: 83250050 Status: stable Status Narrative Discussed with Dr. Strange. Assessment/Plan utox negative lipase negative symptomatic treatment, will consider endoscopy if vomiting not controlled by medical management ADA diet DM management zofran prn, reglan for persistent vomiting PO/IV hydration + electrolyte correction ppi fu labs The patient was seen and examined at bedside and all new and available data was reviewed in the patients chart. I agree with the above findings, impression and plan. (Patient seen earlier today. Signature stamp does not reflect patient encounter time.). - Robin Strange MD Subjective Gastrointestinal/Abdominal: Reports: nausea Objective Last 24 Hour Vital Signs Date Time Temp Pulse Resp B/P (MAP) Pulse Ox O2 Delivery O2 Flow Rate FiO2 08/26/18 08:40 82 107/62 08/26/18 08:05 Room Air 08/26/18 08:00 97.7 82 20 107/62 (77) 94 08/26/18 07:26 86 18 Room Air 08/26/18 04:00 76 20 109/59 (76) 95 08/25/18 21:00 Room Air 08/25/18 20:08 82 16 Room Air 08/25/18 20:00 98.0 86 20 122/67 (85) 96 08/25/18 16:00 97.0 83 18 110/63 (79) 95 08/25/18 12:00 97.9 85 18 113/81 (92) 95 Intake and Output 08/25/18 08/26/18 19:00 07:00 Intake Total 1036 ml 720 ml Output Total 725 ml 1200 ml Balance 311 ml -480 ml Intake Oral 236 ml IV Total 800 ml 720 ml Output Urine Total 725 ml 1200 ml # Voids 1 3 Laboratory Tests Test 08/25/18 11:35 08/25/18 19:02 08/26/18 09:25 White Blood Count 7.6 K/UL (4.8-10.8) 8.8 K/UL (4.8-10.8) Red Blood Count 4.78 M/UL (4.70-6.10) 4.88 M/UL (4.70-6.10) Hemoglobin 14.3 G/DL (14.2-18.0) 14.2 G/DL (14.2-18.0) Hematocrit 40.1 % (42.0-52.0) L 40.8 % (42.0-52.0) L Mean Corpuscular Volume 84 FL (80-99) 84 FL (80-99) Mean Corpuscular Hemoglobin 29.8 PG (27.0-31.0) 29.1 PG (27.0-31.0) Mean Corpuscular Hemoglobin Concent 35.6 G/DL (32.0-36.0) 34.7 G/DL (32.0-36.0) Red Cell Distribution Width 11.7 % (11.6-14.8) 11.8 % (11.6-14.8) Platelet Count 179 K/UL (150-450) 158 K/UL (150-450) Mean Platelet Volume 8.0 FL (6.5-10.1) 7.5 FL (6.5-10.1) Neutrophils (%) (Auto) 56.0 % (45.0-75.0) 60.8 % (45.0-75.0) Lymphocytes (%) (Auto) 31.2 % (20.0-45.0) 29.2 % (20.0-45.0) Monocytes (%) (Auto) 9.5 % (1.0-10.0) 7.2 % (1.0-10.0) Eosinophils (%) (Auto) 2.4 % (0.0-3.0) 2.1 % (0.0-3.0) Basophils (%) (Auto) 1.0 % (0.0-2.0) 0.7 % (0.0-2.0) Sodium Level 136 MMOL/L (136-145) 134 MMOL/L (136-145) L Potassium Level 4.2 MMOL/L (3.5-5.1) 3.7 MMOL/L (3.5-5.1) Chloride Level 102 MMOL/L (98-107) 101 MMOL/L (98-107) Carbon Dioxide Level 26 MMOL/L (21-32) 27 MMOL/L (21-32) Anion Gap 8 mmol/L (5-15) 6 mmol/L (5-15) Blood Urea Nitrogen 17 mg/dL (7-18) 18 mg/dL (7-18) Creatinine 0.9 MG/DL (0.55-1.30) 0.9 MG/DL (0.55-1.30) Estimat Glomerular Filtration Rate > 60 mL/min (>60) > 60 mL/min (>60) Glucose Level 234 MG/DL (74-106) H 289 MG/DL (74-106) H Calcium Level 8.5 MG/DL (8.5-10.1) 8.6 MG/DL (8.5-10.1) Total Bilirubin 0.3 MG/DL (0.2-1.0) 0.4 MG/DL (0.2-1.0) Aspartate Amino Transf (AST/SGOT) 12 U/L (15-37) L 13 U/L (15-37) L Alanine Aminotransferase (ALT/SGPT) 24 U/L (12-78) 24 U/L (12-78) Alkaline Phosphatase 59 U/L (46-116) 60 U/L (46-116) Total Protein 6.4 G/DL (6.4-8.2) 6.3 G/DL (6.4-8.2) L Albumin 3.1 G/DL (3.4-5.0) L 3.0 G/DL (3.4-5.0) L Globulin 3.3 g/dL 3.3 g/dL Albumin/Globulin Ratio 0.9 (1.0-2.7) L 0.9 (1.0-2.7) L Triglycerides Level 139 MG/DL (30-150) Cholesterol Level 102 MG/DL (< 200) LDL Cholesterol 55 mg/dL (<100) HDL Cholesterol 29 MG/DL (40-60) L Cholesterol/HDL Ratio 3.5 (3.3-4.4) Thyroid Stimulating Hormone (TSH) 1.416 uiU/mL (0.358-3.740) Urine Opiates Screen Negative (NEGATIVE) Urine Barbiturates Screen Negative (NEGATIVE) Phencyclidine (PCP) Screen Negative (NEGATIVE) Urine Amphetamines Screen Negative (NEGATIVE) Urine Benzodiazepines Screen Negative (NEGATIVE) Urine Cocaine Screen Negative (NEGATIVE) Urine Marijuana (THC) Screen Negative (NEGATIVE) Erythrocyte Sedimentation Rate 5 MM/HR (0-15) Hemoglobin A1c 7.3 % (4.3-6.0) H Phosphorus Level 2.7 MG/DL (2.5-4.9) Magnesium Level 1.8 MG/DL (1.8-2.4) Lipase 155 U/L (73-393) Height (Feet): 5 Height (Inches): 11.00 Weight (Pounds): 263 General Appearance: WD/WN, no apparent distress, alert Cardiovascular: normal rate Respiratory/Chest: normal breath sounds, no respiratory distress Abdominal Exam: normal bowel sounds, non tender, soft Extremities: normal range of motion, non-tender Robert Raymundo NP Aug 26, 2018 11:24
[2018-08-26 12:00] VITALS: BP 109/66
--- NOTE | 2018-08-26 12:29 | Pulmonology Progress Note ---
Assessment/Plan Problems: (1) COPD (chronic obstructive pulmonary disease) (2) Psychosomatic disorder (3) Diabetes mellitus (4) Peripheral neuropathy (5) Morbid obesity with BMI of 40.0-44.9, adult (6) Gastroparesis due to DM (7) Noncompliance Assessment/Plan improving more awake sliding scale f/u psych recommendations neuro f/u Subjective ROS Limited/Unobtainable: Yes Constitutional: Reports: no symptoms HEENT: Repors: no symptoms Respiratory: Reports: no symptoms Allergies: Coded Allergies: HALOPERIDOL (Verified Allergy, Unknown, 07/30/18) Objective Last 24 Hour Vital Signs Date Time Temp Pulse Resp B/P (MAP) Pulse Ox O2 Delivery O2 Flow Rate FiO2 08/26/18 08:40 82 107/62 08/26/18 08:05 Room Air 08/26/18 08:00 97.7 82 20 107/62 (77) 94 08/26/18 07:26 86 18 Room Air 08/26/18 04:00 76 20 109/59 (76) 95 08/25/18 21:00 Room Air 08/25/18 20:08 82 16 Room Air 08/25/18 20:00 98.0 86 20 122/67 (85) 96 08/25/18 16:00 97.0 83 18 110/63 (79) 95 Intake and Output 08/25/18 08/26/18 19:00 07:00 Intake Total 1036 ml 720 ml Output Total 725 ml 1200 ml Balance 311 ml -480 ml Intake Oral 236 ml IV Total 800 ml 720 ml Output Urine Total 725 ml 1200 ml # Voids 1 3 General Appearance: WD/WN HEENT: normocephalic, anicteric Respiratory/Chest: chest wall non-tender, lungs clear Cardiovascular: normal peripheral pulses, normal rate Abdomen: normal bowel sounds, soft, non tender Neurologic/Psychiatric: pet resort concierge II-XII grossly normal Lymphatic: no neck adenopathy Microbiology Date/Time Source Procedure Growth Status 08/24/18 18:37 Nasal Nares MRSA Culture - Final Staphylococcus Aureus - Mrsa Complete Laboratory Tests 08/25/18 19:02: Urine Opiates Screen Negative, Urine Barbiturates Screen Negative, Phencyclidine (PCP) Screen Negative, Urine Amphetamines Screen Negative, Urine Benzodiazepines Screen Negative, Urine Cocaine Screen Negative, Urine Marijuana (THC) Screen Negative 08/26/18 09:25: White Blood Count 8.8, Red Blood Count 4.88, Hemoglobin 14.2, Hematocrit 40.8L, Mean Corpuscular Volume 84, Mean Corpuscular Hemoglobin 29.1, Mean Corpuscular Hemoglobin Concent 34.7, Red Cell Distribution Width 11.8, Platelet Count 158, Mean Platelet Volume 7.5, Neutrophils (%) (Auto) 60.8, Lymphocytes (%) (Auto) 29.2, Monocytes (%) (Auto) 7.2, Eosinophils (%) (Auto) 2.1, Basophils (%) (Auto ) 0.7, Erythrocyte Sedimentation Rate 5, Sodium Level 134L, Potassium Level 3.7 , Chloride Level 101, Carbon Dioxide Level 27, Anion Gap 6, Blood Urea Nitrogen 18, Creatinine 0.9, Estimat Glomerular Filtration Rate > 60, Glucose Level 289H , Hemoglobin A1c 7.3H, Calcium Level 8.6, Phosphorus Level 2.7, Magnesium Level 1.8, Total Bilirubin 0.4, Aspartate Amino Transf (AST/SGOT) 13L, Alanine Aminotransferase (ALT/SGPT) 24, Alkaline Phosphatase 60, Total Protein 6.3L, Albumin 3.0L, Globulin 3.3, Albumin/Globulin Ratio 0.9L, Lipase 155 Current Medications Medications (Trade) Dose Ordered Sig/Sofia Route PRN Reason Start Time Stop Time Status Last Admin Dose Admin Acetaminophen (Tylenol) 650 mg Q4H PRN ORAL fever 08/24/18 22:15 09/23/18 22:14 Acetaminophen/ Hydrocodone Bitart ([place] 10/325) 1 tab Q4H PRN ORAL Pain 4-6 08/25/18 00:45 09/01/18 00:44 08/26/18 08:41 Al Hydroxide/Mg Hydroxide (Mylanta II) 30 ml Q6H PRN ORAL dyspepsia 08/24/18 22:15 09/23/18 22:14 Albuterol/ Ipratropium (Albuterol/ Ipratropium) 3 ml Q4HR PRN HHN Shortness of Breath 08/24/18 23:00 08/29/18 22:59 Aspirin (Ecotrin) 81 mg DAILY ORAL 08/25/18 09:00 09/24/18 08:59 08/26/18 08:40 Clonidine HCl (Catapres Tab) 0.1 mg Q4H PRN ORAL For High Blood Pressure 08/24/18 22:15 09/23/18 22:14 Dextrose (Dextrose 50%) STAT PRN IV Hypoglycemia 08/24/18 22:15 09/23/18 22:14 Dextrose (Dextrose 50%) STAT PRN IV Hypoglycemia 08/24/18 22:15 09/23/18 22:14 Divalproex Sodium (Depakote) 500 mg DAILY ORAL 08/25/18 09:00 09/24/18 08:59 08/26/18 08:40 Escitalopram Oxalate (Lexapro) 10 mg DAILY ORAL 08/25/18 09:00 09/24/18 08:59 08/26/18 08:40 Heparin Sodium (Porcine) (Heparin 5000 units/ml) 5,000 units EVERY 12 HOURS SUBQ 08/25/18 09:00 09/24/18 08:59 Insulin Aspart (NovoLOG) BEFORE MEALS AND HS SUBQ 08/25/18 06:30 09/24/18 06:29 08/26/18 12:22 Lorazepam (Ativan 2mg/ml 1ml) 0.5 mg Q4H PRN IV For Anxiety 08/24/18 22:15 08/31/18 22:14 Metoprolol Succinate (Toprol XL) 25 mg DAILY ORAL 08/25/18 09:00 09/24/18 08:59 08/26/18 08:40 Morphine Sulfate (Morphine Sulfate) 1 mg Q4H PRN IVP Pain 7-10 08/25/18 00:30 09/01/18 00:29 08/26/18 10:11 Ondansetron HCl (Zofran) 4 mg Q6H PRN IVP Nausea & Vomiting 08/24/18 22:15 09/23/18 22:14 Polyethylene Glycol (Miralax) 17 gm BEDTIME PRN ORAL Constipation 08/24/18 23:00 09/23/18 22:59 Quetiapine Fumarate (SEROquel) 200 mg BEDTIME ORAL 08/24/18 22:30 09/23/18 22:29 08/25/18 22:08 Sodium Chloride 1,000 ml @ 60 mls/hr [id number] IV 08/24/18 23:45 09/23/18 23:44 08/26/18 10:09 Temazepam (Restoril) 15 mg BEDTIME PRN ORAL Insomnia 08/25/18 06:34 09/01/18 06:33 Zolpidem Tartrate (Ambien) 5 mg HSPRN PRN ORAL Insomnia 08/24/18 22:15 08/31/18 22:14 Lashanda Pham MD Aug 26, 2018 12:29
--- NOTE | 2018-08-26 14:04 | General Progress Note ---
Assessment/Plan Problem List: (1) Nausea & vomiting ICD Codes: R11.2 - Nausea with vomiting, unspecified SNOMED: 54239011 (2) Diabetes ICD Codes: E11.9 - Type 2 diabetes mellitus without complications SNOMED: 28567980 (3) CVA (cerebral vascular accident) ICD Codes: I63.9 - Cerebral infarction, unspecified SNOMED: 261445016 (4) Weak ICD Codes: R53.1 - Weakness SNOMED: 84414531 (5) Back pain ICD Codes: M54.9 - Dorsalgia, unspecified SNOMED: 628308921 (6) Diabetes mellitus ICD Codes: E11.9 - Diabetes mellitus SNOMED: 09016224 (7) Anxiety ICD Codes: F41.9 - Anxiety disorder, unspecified; Z68.41 - Body mass index (BMI ) 40.0-44.9, adult SNOMED: 57031303 (8) COPD exacerbation ICD Codes: J44.1 - Chronic obstructive pulmonary disease with (acute) exacerbation SNOMED: 532845371, 441418353 Status: unchanged Assessment/Plan ot pt diet gi f/u pain control cbc bmp am Subjective Constitutional: Reports: weakness Gastrointestinal/Abdominal: Reports: nausea, vomiting Allergies: Coded Allergies: HALOPERIDOL (Verified Allergy, Unknown, 07/30/18) All Systems: reviewed and negative except above Subjective weak in bed Objective Last 24 Hour Vital Signs Date Time Temp Pulse Resp B/P (MAP) Pulse Ox O2 Delivery O2 Flow Rate FiO2 08/26/18 12:00 97.7 80 20 109/66 (80) 95 08/26/18 08:40 82 107/62 08/26/18 08:05 Room Air 08/26/18 08:00 97.7 82 20 107/62 (77) 94 08/26/18 07:26 86 18 Room Air 08/26/18 04:00 76 20 109/59 (76) 95 08/25/18 21:00 Room Air 08/25/18 20:08 82 16 Room Air 08/25/18 20:00 98.0 86 20 122/67 (85) 96 08/25/18 16:00 97.0 83 18 110/63 (79) 95 Intake and Output 08/25/18 08/26/18 19:00 07:00 Intake Total 1036 ml 720 ml Output Total 725 ml 1200 ml Balance 311 ml -480 ml Intake Oral 236 ml IV Total 800 ml 720 ml Output Urine Total 725 ml 1200 ml # Voids 1 3 Laboratory Tests 08/25/18 19:02: Urine Opiates Screen Negative, Urine Barbiturates Screen Negative, Phencyclidine (PCP) Screen Negative, Urine Amphetamines Screen Negative, Urine Benzodiazepines Screen Negative, Urine Cocaine Screen Negative, Urine Marijuana (THC) Screen Negative 08/26/18 09:25: White Blood Count 8.8, Red Blood Count 4.88, Hemoglobin 14.2, Hematocrit 40.8L, Mean Corpuscular Volume 84, Mean Corpuscular Hemoglobin 29.1, Mean Corpuscular Hemoglobin Concent 34.7, Red Cell Distribution Width 11.8, Platelet Count 158, Mean Platelet Volume 7.5, Neutrophils (%) (Auto) 60.8, Lymphocytes (%) (Auto) 29.2, Monocytes (%) (Auto) 7.2, Eosinophils (%) (Auto) 2.1, Basophils (%) (Auto ) 0.7, Erythrocyte Sedimentation Rate 5, Sodium Level 134L, Potassium Level 3.7 , Chloride Level 101, Carbon Dioxide Level 27, Anion Gap 6, Blood Urea Nitrogen 18, Creatinine 0.9, Estimat Glomerular Filtration Rate > 60, Glucose Level 289H , Hemoglobin A1c 7.3H, Calcium Level 8.6, Phosphorus Level 2.7, Magnesium Level 1.8, Total Bilirubin 0.4, Aspartate Amino Transf (AST/SGOT) 13L, Alanine Aminotransferase (ALT/SGPT) 24, Alkaline Phosphatase 60, Total Protein 6.3L, Albumin 3.0L, Globulin 3.3, Albumin/Globulin Ratio 0.9L, Lipase 155 Height (Feet): 5 Height (Inches): 11.00 Weight (Pounds): 263 General Appearance: lethargic EENT: normal ENT inspection Neck: normal alignment Cardiovascular: normal peripheral pulses, normal rate, regular rhythm Respiratory/Chest: chest wall non-tender, lungs clear, normal breath sounds Abdomen: normal bowel sounds, non tender, soft Extremities: normal inspection Edema: no edema noted Arm (L), no edema noted Arm (R), no edema noted Leg (L), no edema noted Leg (R), no edema noted Pedal (L), no edema noted Pedal (R), no edema noted Generalized Neurologic: responsive, motor weakness Skin: normal pigmentation, warm/dry Aniceto Sepulveda DO Aug 26, 2018 14:04
[2018-08-26 16:00] VITALS: BP 120/74
[2018-08-26 20:00] VITALS: BP_SYST 110; BP_SYST 155; BP_DIAS 67; BP_DIAS 73
[2018-08-26] MEDS: QUEtiapine 200mg tab ORAL SCH (21:27)
[2018-08-27] VITALS: BP 109/80
[2018-08-27] MEDS: Morphine Sulfate 2mg/ml Inj IVP PRN ×4 (02:09→15:03)
[2018-08-27 04:00] VITALS: BP 106/59
[2018-08-27 06:14] LABS: BASOPHILS % (AUTO) 0.7 % (0.0-2.0); HEMATOCRIT 40.3 % (42.0-52.0); HEMOGLOBIN 14.2 G/DL (14.2-18.0); LYMPHOCYTES % (AUTO) 27.5 % (20.0-45.0); MEAN CORPUSCULAR VOLUME 84 FL (80-99); MONOCYTES % (AUTO) 8.3 % (1.0-10.0); NEUTROPHILS % (AUTO) 61.5 % (45.0-75.0); PLATELET COUNT 175 K/UL (150-450); RED BLOOD COUNT 4.78 M/UL (4.70-6.10); WHITE BLOOD COUNT 8.1 K/UL (4.8-10.8)
[2018-08-27] MEDS: NovoLOG Insulin Flexpen SUBQ SCH ×2 (06:14→11:33)
[2018-08-27 06:25] LABS: ANION GAP 9 mmol/L (5-15); BLOOD UREA NITROGEN 15 mg/dL (7-18); CALCIUM 8.6 MG/DL (8.5-10.1); CARBON DIOXIDE 24 MMOL/L (21-32); CHLORIDE 101 MMOL/L (98-107); CREATININE 0.9 MG/DL (0.55-1.30); POTASSIUM 3.9 MMOL/L (3.5-5.1); SODIUM 134 MMOL/L (136-145)
[2018-08-27 08:11] VITALS: BP 100/61
[2018-08-27] MEDS: Aspirin EC 81mg tab ORAL SCH (08:50)
[2018-08-27] MEDS: Metoprolol Succinate XL 25mg tab ORAL SCH (08:51)
[2018-08-27] MEDS: HYDROcodone/Acetamin 10/325 tab ORAL PRN ×2 (08:52→12:50)
[2018-08-27] MEDS: Heparin 5000 units/ml inj SUBQ SCH (08:56)
[2018-08-27] MEDS: Depakote 500mg tab ORAL SCH (08:57)
--- NOTE | 2018-08-27 08:59 | General Progress Note ---
Assessment/Plan Assessment/Plan (1) Chiari malformation type II (2) Degenerative disc disease, cervical (3) Lumbar degenerative disc disease (4) Arthritis, lumbar spine (5) Peripheral neuropathy (6) Hydrocephalus (7) Diabetes mellitus Pt will be continued on Morphine and [place]. Pt was d/w Dr. Napier and he concurred. Subjective Date patient seen: Aug 27, 2018 Time patient seen: 07:00 - am Allergies: Coded Allergies: HALOPERIDOL (Verified Allergy, Unknown, 07/30/18) Subjective Constitutional: Reports: weakness, Denies: chills, diaphoresis, fever, malaise , no symptoms, other HEENT: Denies: blurred vision, double vision, ear discharge, ear pain, eye pain , mouth pain, mouth swelling, no symptoms, nose congestion, nose pain, other, tearing, throat pain, throat swelling Cardiovascular: Denies: chest pain, edema, irregular heart rate, lightheadedness, no symptoms, other, palpitations, syncope Respiratory: Denies: SOB at rest, SOB with excertion, cough, no symptoms, orthopnea, other, shortness of breath, sputum, stridor, wheezing Gastrointestinal/Abdominal: Denies: abdomen distended, abdominal pain, black stools, blood in stool, constipated, diarrhea, difficulty swallowing, nausea, no symptoms, other, poor appetite, poor fluid intake, rectal bleeding, tarry stools, vomiting Genitourinary: Denies: burning, discharge, flank pain, frequency, hematuria, incontinence, no symptoms, other, pain, urgency Neurologic/Psychiatric: Reports: headache, numbness, tingling, weakness, Denies : anxiety, depressed, emotional problems, no symptoms, other, paresthesia, pre- existing deficit, seizure, tremors Endocrine: Denies: excessive sweating, flushing, increased hunger, increased thirst, increased urine, intolerance to cold, intolerance to heat, no symptoms, other, unexplained weight gain, unexplained weight loss Hematologic/Lymphatic: Denies: anemia, easy bleeding, easy bruising, no symptoms, other Subjective Patient laying in bed and reports pain has mark unchanged and reduced on the morphine and norco. He has no new complaints. Objective Last 24 Hour Vital Signs Date Time Temp Pulse Resp B/P (MAP) Pulse Ox O2 Delivery O2 Flow Rate FiO2 08/27/18 08:51 73 100/61 08/27/18 08:51 89 18 98 Room Air 21 08/27/18 08:42 36 08/27/18 08:42 89 20 98 Room Air 21 08/27/18 08:11 97.6 73 20 100/61 (74) 98 08/27/18 07:38 88 18 Room Air 21 08/27/18 04:00 97.9 75 20 106/59 (75) 98 08/27/18 00:00 99.0 81 20 109/80 (90) 95 08/26/18 21:00 Room Air 08/26/18 20:00 98.8 85 19 110/67 (81) 97 08/26/18 18:43 91 20 Room Air 21 08/26/18 16:00 97.5 90 20 120/74 (89) 95 08/26/18 12:00 97.7 80 20 109/66 (80) 95 Intake and Output 08/26/18 08/27/18 18:59 06:59 Intake Total 1440 ml 590 ml Output Total 2100 ml Balance -660 ml 590 ml Intake Oral 660 ml 350 ml IV Total 780 ml 240 ml Output Urine Total 2100 ml # Voids 2 Laboratory Tests 08/26/18 09:25: White Blood Count 8.8, Red Blood Count 4.88, Hemoglobin 14.2, Hematocrit 40.8L, Mean Corpuscular Volume 84, Mean Corpuscular Hemoglobin 29.1, Mean Corpuscular Hemoglobin Concent 34.7, Red Cell Distribution Width 11.8, Platelet Count 158, Mean Platelet Volume 7.5, Neutrophils (%) (Auto) 60.8, Lymphocytes (%) (Auto) 29.2, Monocytes (%) (Auto) 7.2, Eosinophils (%) (Auto) 2.1, Basophils (%) (Auto ) 0.7, Erythrocyte Sedimentation Rate 5, Sodium Level 134L, Potassium Level 3.7 , Chloride Level 101, Carbon Dioxide Level 27, Anion Gap 6, Blood Urea Nitrogen 18, Creatinine 0.9, Estimat Glomerular Filtration Rate > 60, Glucose Level 289H , Hemoglobin A1c 7.3H, Calcium Level 8.6, Phosphorus Level 2.7, Magnesium Level 1.8, Total Bilirubin 0.4, Aspartate Amino Transf (AST/SGOT) 13L, Alanine Aminotransferase (ALT/SGPT) 24, Alkaline Phosphatase 60, Total Protein 6.3L, Albumin 3.0L, Globulin 3.3, Albumin/Globulin Ratio 0.9L, Lipase 155 08/27/18 06:00: White Blood Count 8.1, Red Blood Count 4.78, Hemoglobin 14.2, Hematocrit 40.3L, Mean Corpuscular Volume 84, Mean Corpuscular Hemoglobin 29.8, Mean Corpuscular Hemoglobin Concent 35.3, Red Cell Distribution Width 12.0, Platelet Count 175, Mean Platelet Volume 7.5, Neutrophils (%) (Auto) 61.5, Lymphocytes (%) (Auto) 27.5, Monocytes (%) (Auto) 8.3, Eosinophils (%) (Auto) 2.0, Basophils (%) (Auto ) 0.7, Sodium Level 134L, Potassium Level 3.9, Chloride Level 101, Carbon Dioxide Level 24, Anion Gap 9, Blood Urea Nitrogen 15, Creatinine 0.9, Estimat Glomerular Filtration Rate > 60, Glucose Level 282H, Calcium Level 8.6 Height (Feet): 5 Height (Inches): 11.00 Weight (Pounds): 263 Joao Munoz Aug 27, 2018 08:59
[2018-08-27 12:00] VITALS: BP 125/84
--- NOTE | 2018-08-27 12:21 | Pulmonology Progress Note ---
Assessment/Plan Problems: (1) COPD (chronic obstructive pulmonary disease) (2) Psychosomatic disorder (3) Diabetes mellitus (4) Peripheral neuropathy (5) Morbid obesity with BMI of 40.0-44.9, adult (6) Gastroparesis due to DM (7) Noncompliance Assessment/Plan eating better improving more awake sliding scale f/u psych recommendations neuro f/u dc planning Subjective ROS Limited/Unobtainable: No HEENT: Repors: no symptoms Respiratory: Reports: no symptoms Allergies: Coded Allergies: HALOPERIDOL (Verified Allergy, Unknown, 07/30/18) Objective Last 24 Hour Vital Signs Date Time Temp Pulse Resp B/P (MAP) Pulse Ox O2 Delivery O2 Flow Rate FiO2 08/27/18 09:20 Room Air 08/27/18 08:51 73 100/61 08/27/18 08:51 89 18 98 Room Air 21 08/27/18 08:42 36 08/27/18 08:42 89 20 98 Room Air 21 08/27/18 08:11 97.6 73 20 100/61 (74) 98 08/27/18 07:38 88 18 Room Air 21 08/27/18 04:00 97.9 75 20 106/59 (75) 98 08/27/18 00:00 99.0 81 20 109/80 (90) 95 08/26/18 21:00 Room Air 08/26/18 20:00 98.8 85 19 110/67 (81) 97 08/26/18 18:43 91 20 Room Air 21 08/26/18 16:00 97.5 90 20 120/74 (89) 95 Intake and Output 08/26/18 08/27/18 19:00 07:00 Intake Total 1500 ml 530 ml Output Total 2100 ml Balance -600 ml 530 ml Intake Oral 660 ml 350 ml IV Total 840 ml 180 ml Output Urine Total 2100 ml # Voids 2 General Appearance: WD/WN HEENT: normocephalic, atraumatic Respiratory/Chest: chest wall non-tender, lungs clear Cardiovascular: normal peripheral pulses, normal rate Abdomen: normal bowel sounds, soft, non tender Genitourinary: normal external genitalia Skin: no rash, no lesions Microbiology Date/Time Source Procedure Growth Status 08/24/18 18:37 Nasal Nares MRSA Culture - Final Staphylococcus Aureus - Mrsa Complete Laboratory Tests 08/27/18 06:00: White Blood Count 8.1, Red Blood Count 4.78, Hemoglobin 14.2, Hematocrit 40.3L, Mean Corpuscular Volume 84, Mean Corpuscular Hemoglobin 29.8, Mean Corpuscular Hemoglobin Concent 35.3, Red Cell Distribution Width 12.0, Platelet Count 175, Mean Platelet Volume 7.5, Neutrophils (%) (Auto) 61.5, Lymphocytes (%) (Auto) 27.5, Monocytes (%) (Auto) 8.3, Eosinophils (%) (Auto) 2.0, Basophils (%) (Auto ) 0.7, Sodium Level 134L, Potassium Level 3.9, Chloride Level 101, Carbon Dioxide Level 24, Anion Gap 9, Blood Urea Nitrogen 15, Creatinine 0.9, Estimat Glomerular Filtration Rate > 60, Glucose Level 282H, Calcium Level 8.6 Current Medications Medications (Trade) Dose Ordered Sig/Sofia Route PRN Reason Start Time Stop Time Status Last Admin Dose Admin Acetaminophen (Tylenol) 650 mg Q4H PRN ORAL fever 08/24/18 22:15 09/23/18 22:14 Acetaminophen/ Hydrocodone Bitart ([place] ) 1 tab Q4H PRN ORAL Pain 4-6 08/25/18 00:45 09/01/18 00:44 08/27/18 08:52 Al Hydroxide/Mg Hydroxide (Mylanta II) 30 ml Q6H PRN ORAL dyspepsia 08/24/18 22:15 09/23/18 22:14 Albuterol/ Ipratropium (Albuterol/ Ipratropium) 3 ml Q4HR PRN HHN Shortness of Breath 08/24/18 23:00 08/29/18 22:59 08/27/18 08:49 Aspirin (Ecotrin) 81 mg DAILY ORAL 08/25/18 09:00 09/24/18 08:59 08/27/18 08:50 Clonidine HCl (Catapres Tab) 0.1 mg Q4H PRN ORAL For High Blood Pressure 08/24/18 22:15 09/23/18 22:14 Dextrose (Dextrose 50%) STAT PRN IV Hypoglycemia 08/24/18 22:15 09/23/18 22:14 Dextrose (Dextrose 50%) STAT PRN IV Hypoglycemia 08/24/18 22:15 09/23/18 22:14 Divalproex Sodium (Depakote) 500 mg DAILY ORAL 08/25/18 09:00 09/24/18 08:59 08/27/18 08:57 Escitalopram Oxalate (Lexapro) 10 mg DAILY ORAL 08/25/18 09:00 09/24/18 08:59 08/27/18 08:50 Heparin Sodium (Porcine) (Heparin 5000 units/ml) 5,000 units EVERY 12 HOURS SUBQ 08/25/18 09:00 09/24/18 08:59 08/27/18 08:56 Insulin Aspart (NovoLOG) BEFORE MEALS AND HS SUBQ 08/25/18 06:30 09/24/18 06:29 08/27/18 11:33 Lorazepam (Ativan 2mg/ml 1ml) 0.5 mg Q4H PRN IV For Anxiety 08/24/18 22:15 08/31/18 22:14 Metoprolol Succinate (Toprol XL) 25 mg DAILY ORAL 08/25/18 09:00 09/24/18 08:59 08/27/18 08:51 Morphine Sulfate (Morphine Sulfate) 1 mg Q4H PRN IVP Pain 7-10 08/25/18 00:30 09/01/18 00:29 08/27/18 10:26 Ondansetron HCl (Zofran) 4 mg Q6H PRN IVP Nausea & Vomiting 08/24/18 22:15 09/23/18 22:14 08/27/18 10:25 Polyethylene Glycol (Miralax) 17 gm BEDTIME PRN ORAL Constipation 08/24/18 23:00 09/23/18 22:59 Quetiapine Fumarate (SEROquel) 200 mg BEDTIME ORAL 08/24/18 22:30 09/23/18 22:29 08/26/18 21:27 Sodium Chloride 1,000 ml @ 60 mls/hr [id number] IV 08/24/18 23:45 09/23/18 23:44 08/27/18 06:15 Temazepam (Restoril) 15 mg BEDTIME PRN ORAL Insomnia 08/25/18 06:34 09/01/18 06:33 Zolpidem Tartrate (Ambien) 5 mg HSPRN PRN ORAL Insomnia 08/24/18 22:15 08/31/18 22:14 Lashanda Pham MD Aug 27, 2018 12:21
--- NOTE | 2018-08-27 13:16 | General Progress Note ---
Assessment/Plan Problem List: (1) Nausea & vomiting ICD Codes: R11.2 - Nausea with vomiting, unspecified SNOMED: 44947231 (2) Diabetes ICD Codes: E11.9 - Type 2 diabetes mellitus without complications SNOMED: 90511132 (3) CVA (cerebral vascular accident) ICD Codes: I63.9 - Cerebral infarction, unspecified SNOMED: 688803401 (4) Weak ICD Codes: R53.1 - Weakness SNOMED: 24885740 (5) Back pain ICD Codes: M54.9 - Dorsalgia, unspecified SNOMED: 742247005 (6) Diabetes mellitus ICD Codes: E11.9 - Diabetes mellitus SNOMED: 69191247 (7) Anxiety ICD Codes: F41.9 - Anxiety disorder, unspecified; Z68.41 - Body mass index (BMI ) 40.0-44.9, adult SNOMED: 46234589 (8) COPD exacerbation ICD Codes: J44.1 - Chronic obstructive pulmonary disease with (acute) exacerbation SNOMED: 050368183, 546983379 Assessment/Plan ot pt diet gi f/u pain control dc to snf Subjective Constitutional: Reports: weakness Allergies: Coded Allergies: HALOPERIDOL (Verified Allergy, Unknown, 07/30/18) All Systems: reviewed and negative except above Subjective feeling better in bed Objective Last 24 Hour Vital Signs Date Time Temp Pulse Resp B/P (MAP) Pulse Ox O2 Delivery O2 Flow Rate FiO2 08/27/18 09:20 Room Air 08/27/18 08:51 73 100/61 08/27/18 08:51 89 18 98 Room Air 21 08/27/18 08:42 36 08/27/18 08:42 89 20 98 Room Air 21 08/27/18 08:11 97.6 73 20 100/61 (74) 98 08/27/18 07:38 88 18 Room Air 08/27/18 04:00 97.9 75 20 106/59 (75) 98 08/27/18 00:00 99.0 81 20 109/80 (90) 95 08/26/18 21:00 Room Air 08/26/18 20:00 98.8 85 19 110/67 (81) 97 08/26/18 18:43 91 20 Room Air 21 08/26/18 16:00 97.5 90 20 120/74 (89) 95 Intake and Output 08/26/18 08/27/18 19:00 07:00 Intake Total 1500 ml 530 ml Output Total 2100 ml Balance -600 ml 530 ml Intake Oral 660 ml 350 ml IV Total 840 ml 180 ml Output Urine Total 2100 ml # Voids 2 Laboratory Tests 08/27/18 06:00: White Blood Count 8.1, Red Blood Count 4.78, Hemoglobin 14.2, Hematocrit 40.3L, Mean Corpuscular Volume 84, Mean Corpuscular Hemoglobin 29.8, Mean Corpuscular Hemoglobin Concent 35.3, Red Cell Distribution Width 12.0, Platelet Count 175, Mean Platelet Volume 7.5, Neutrophils (%) (Auto) 61.5, Lymphocytes (%) (Auto) 27.5, Monocytes (%) (Auto) 8.3, Eosinophils (%) (Auto) 2.0, Basophils (%) (Auto ) 0.7, Sodium Level 134L, Potassium Level 3.9, Chloride Level 101, Carbon Dioxide Level 24, Anion Gap 9, Blood Urea Nitrogen 15, Creatinine 0.9, Estimat Glomerular Filtration Rate > 60, Glucose Level 282H, Calcium Level 8.6 Height (Feet): 5 Height (Inches): 11.00 Weight (Pounds): 263 General Appearance: alert EENT: normal ENT inspection Neck: normal alignment Cardiovascular: normal peripheral pulses, normal rate, regular rhythm Respiratory/Chest: chest wall non-tender, lungs clear, normal breath sounds Abdomen: normal bowel sounds, non tender, soft Extremities: normal inspection Edema: no edema noted Arm (L), no edema noted Arm (R), no edema noted Leg (L), no edema noted Leg (R), no edema noted Pedal (L), no edema noted Pedal (R), no edema noted Generalized Neurologic: responsive, motor weakness Skin: normal pigmentation, warm/dry Aniceto Sepulveda DO Aug 27, 2018 13:16
--- NOTE | 2018-08-27 13:46 | GI Progress Note ---
Assessment/Plan Problems: (1) Dehydration ICD Codes: E86.0 - Dehydration SNOMED: 11505976 (2) Intractable abdominal pain ICD Codes: R10.9 - Unspecified abdominal pain SNOMED: 48036550 (3) Gastroenteritis ICD Codes: K52.9 - Gastroenteritis SNOMED: 24713725 (4) Gastroparesis due to DM ICD Codes: E11.43 - Type 2 diabetes mellitus with diabetic autonomic (poly) neuropathy; K31.84 - Gastroparesis SNOMED: 57873245, 034766588 (5) Diabetes mellitus ICD Codes: E11.9 - Diabetes mellitus SNOMED: 22319688 Status: stable Status Narrative Discussed with Dr. Strange. Assessment/Plan utox negative lipase negative okay for DC per GI standpoint symptomatic treatment ADA diet DM management zofran prn, reglan for persistent vomiting PO/IV hydration + electrolyte correction ppi fu labs The patient was seen and examined at bedside and all new and available data was reviewed in the patients chart. I agree with the above findings, impression and plan. (Patient seen earlier today. Signature stamp does not reflect patient encounter time.). - Robin Strange MD Subjective Gastrointestinal/Abdominal: Reports: no symptoms Objective Last 24 Hour Vital Signs Date Time Temp Pulse Resp B/P (MAP) Pulse Ox O2 Delivery O2 Flow Rate FiO2 08/27/18 12:00 98.2 81 20 125/84 (98) 95 08/27/18 09:20 Room Air 08/27/18 08:51 73 100/61 08/27/18 08:51 89 18 98 Room Air 08/27/18 08:42 36 08/27/18 08:42 89 20 98 Room Air 21 08/27/18 08:11 97.6 73 20 100/61 (74) 98 08/27/18 07:38 88 18 Room Air 08/27/18 04:00 97.9 75 20 106/59 (75) 98 08/27/18 00:00 99.0 81 20 109/80 (90) 95 08/26/18 21:00 Room Air 08/26/18 20:00 98.8 85 19 110/67 (81) 97 08/26/18 18:43 91 20 Room Air 21 08/26/18 16:00 97.5 90 20 120/74 (89) 95 Intake and Output 08/26/18 08/27/18 19:00 07:00 Intake Total 1500 ml 530 ml Output Total 2100 ml Balance -600 ml 530 ml Intake Oral 660 ml 350 ml IV Total 840 ml 180 ml Output Urine Total 2100 ml # Voids 2 Laboratory Tests Test 08/27/18 06:00 White Blood Count 8.1 K/UL (4.8-10.8) Red Blood Count 4.78 M/UL (4.70-6.10) Hemoglobin 14.2 G/DL (14.2-18.0) Hematocrit 40.3 % (42.0-52.0) L Mean Corpuscular Volume 84 FL (80-99) Mean Corpuscular Hemoglobin 29.8 PG (27.0-31.0) Mean Corpuscular Hemoglobin Concent 35.3 G/DL (32.0-36.0) Red Cell Distribution Width 12.0 % (11.6-14.8) Platelet Count 175 K/UL (150-450) Mean Platelet Volume 7.5 FL (6.5-10.1) Neutrophils (%) (Auto) 61.5 % (45.0-75.0) Lymphocytes (%) (Auto) 27.5 % (20.0-45.0) Monocytes (%) (Auto) 8.3 % (1.0-10.0) Eosinophils (%) (Auto) 2.0 % (0.0-3.0) Basophils (%) (Auto) 0.7 % (0.0-2.0) Sodium Level 134 MMOL/L (136-145) L Potassium Level 3.9 MMOL/L (3.5-5.1) Chloride Level 101 MMOL/L (98-107) Carbon Dioxide Level 24 MMOL/L (21-32) Anion Gap 9 mmol/L (5-15) Blood Urea Nitrogen 15 mg/dL (7-18) Creatinine 0.9 MG/DL (0.55-1.30) Estimat Glomerular Filtration Rate > 60 mL/min (>60) Glucose Level 282 MG/DL (74-106) H Calcium Level 8.6 MG/DL (8.5-10.1) Height (Feet): 5 Height (Inches): 11.00 Weight (Pounds): 263 General Appearance: WD/WN, no apparent distress, alert Cardiovascular: normal rate Respiratory/Chest: normal breath sounds, no respiratory distress Abdominal Exam: normal bowel sounds, non tender, soft Extremities: normal range of motion, non-tender Robert Raymundo NP Aug 27, 2018 13:46
--- NOTE | 2018-08-27 16:00 | Cardiology Report ---
APPROVED REPORT EKG Measurement Heart [id number] Normal sinus rhythm Normal ECG
[2018-08-27] MEDS ORDERED: 1/2 NS 1000ml IV ONE (17:19)
--- NOTE | 2018-08-30 14:31 | Discharge Summary ---
Discharge Summary Discharge Summary _ DATE OF ADMISSION: 08/24/2018 DATE OF DISCHARGE: 08/27/2018 REASON FOR ADMISSION: 37 years old male with past medical history of Chiari malformation type II, CVA with left-sided weakness, COPD, diabetes mellitus type 1, degenerative disc disease lumbar and cervical spine, morbid obesity, seizure disorder, psychiatric history, presented to emergency department with generalized weakness and inability to eat. Patient reported diminished appetite. He denied fever , but reported subjective chills. No vomiting, no diarrhea. Upon evaluation vital signs were stable. Laboratory workup revealed no leukocytosis, stable hemoglobin and hematocrit. Stable electrolytes and LFT. Urinalysis revealed no evidence of UTI. Elevated blood glucose . Patient admitted with diagnosis of gastroparesis likely due to diabetes mellitus , diabetes mellitus type 1 with peripheral neuropathy, COPD. morbid obesity, dehydration. CONSULTANTS: pulmonary Dr. Pham GI specialist Dr. Strange psychiatrist Dr. Victor pain specialist Dr. Napier HOSPITAL COURSE: Patient admitted to the floor and started on IV fluids. GI and pulmonology specialist closely followed. Supplemental oxygen provided as needed to keep pulse oximetry above 92%, pulmonary toilet was provided with bronchodilator on as needed basis. Venous duplex bilateral lower extremity revealed no evidence of acute DVT. Symptomatic treatment provided. Antiemetics provided as needed: Zofran on as needed basis and Reglan for persistent vomiting. Patient was on diabetic diet. Oral fluids were encouraged. Electrolytes were closely monitored and corrected as needed. Patient was on PPI. Urine toxicology screen was negative. Lipase was negative. Pain specialist closely followed. Pain management was provided as per pain specialist recommendations. According to GI specialist , patient likely had gastroenteritis and gastroparesis, contributing to abdominal pain. Blood sugar was managed with sliding scale of insulin. Hemoglobin A1c 7.3, near at goal. Psychiatrist seen and evaluated patient . Psychiatric medication regimen was optimized . DVT prophylaxis provided. Bowel regimen instituted. Patient was working with physical and occupational therapists. seizure precautions were maintained. No evidence of seizure activity while in the hospital. Depakote was continued. Symptoms resolved , patient stabilized. Patient was ready for discharge back to [facility] facility for continuation of care. FINAL DIAGNOSES: Gastroenteritis Gastroparesis secondary to diabetes mellitus Diabetes mellitus with peripheral neuropathy COPD Dehydration Morbid obesity Chiari malformation type II History of CVA Seizure disorder Cervical degenerative disc disease Schizoaffective disorder bipolar type DISCHARGE MEDICATIONS: See Medication Reconciliation list. DISCHARGE INSTRUCTIONS: Patient was discharged to the [facility] facility. Follow up with medical doctor at the facility. I have been assigned to dictate discharge summary for this account. I was not involved in the patient's management. Elisa Antony NP Aug 30, 2018 14:31
== END 2018-08-27 17:20 | disposition short-term general hospital (02) | DRG 74 ==
LOC: EDBD 17:13 → EDBEDREQ 17:25 → EMR 18:26 → 4E 18:31 → EDBEDREQ 20:08 → 4E 08-25 00:33
DX: E10.43 Type 1 diabetes mellitus with diabetic autonomic (poly)neuropathy (principal); E46 Unspecified protein-calorie malnutrition; F11.20 Opioid dependence, uncomplicated; Z68.41 Body mass index [BMI] 40.0-44.9, adult; Q07.02 Arnold-Chiari syndrome with hydrocephalus; J44.1 Chronic obstructive pulmonary disease with (acute) exacerbation; Z86.73 Personal history of transient ischemic attack (TIA), and cerebral infarction without residual deficits; I10 Essential (primary) hypertension; M50.30 Other cervical disc degeneration, unspecified cervical region; Z79.4 Long term (current) use of insulin; Z79.82 Long term (current) use of aspirin; Z88.8 Allergy status to other drugs, medicaments and biological substances; E66.01 Morbid (severe) obesity due to excess calories; G40.909 Epilepsy, unspecified, not intractable, without status epilepticus; F25.0 Schizoaffective disorder, bipolar type; F45.9 Somatoform disorder, unspecified; M46.86 Other specified inflammatory spondylopathies, lumbar region; Z91.19 Patient's noncompliance with other medical treatment and regimen; F41.9 Anxiety disorder, unspecified
CPT/HCPCS: 36415; 80048; 80053; 80061; 80307; 81003; 82009; 82962; 83036; 83690; 83735; 84100; 84443; 85025; 85651; 87081; 93005; 93970; 94640; 94664; 96374; 97803; 99285; J1815; J2405; J7620

== ENCOUNTER 2018-10-04 01:41 | Inpatient (IN) | payer MEDICARE, MEDICAID ==
[2018-10-04] VITALS (7 sets, daily range): BP systolic 119–133; BP diastolic 60–88
[~2018-10-04] VITALS: Ht 180.3 cm; Wt 126.8 kg
[~2018-10-04 01:41] MED LIST changes: +NORCO 10-325 T1 EACH ORAL
--- NOTE | 2018-10-04 01:54 | Emergency Room Report ---
History of Present Illness General Chief Complaint: Abnormal Labs Present Illness HPI Mr. Chopra is a 38 yo male with hx of insulin-dependent diabetes, COPD, Chiari malformation, CVA, seizure disorder, schizoaffective disorder who presents from [facility] with hyperglycemia. Blood sugar was greater than 500. Blood sugar is now 400 receiving 14 units of insulin per nursing staff. Personal physician recommended evaluation in the emergency room. Mr. Chopra explains that he's been sick for several days. He's had nausea vomiting. He's had diarrhea. He denies abdominal pain. Allergies: Coded Allergies: HALOPERIDOL (Verified Allergy, Unknown, 07/30/18) Patient History Past Medical History: see triage record, old chart reviewed Past Surgical History: unable to obtain, other - SNF records reviewed Pertinent Family History: other - not pertinent to today's presentation Social History: Denies: alcohol use, drug use Reviewed Nursing Documentation: PMH: Agreed; PSxH: Agreed Nursing Documentation-PMH Hx Hypertension: Yes Hx COPD: Yes Hx Diabetes: Yes - DM2 Hx Cancer: No Hx Gastrointestinal Problems: Yes Hx Neurological Problems: Yes Hx Cerebrovascular Accident: Yes - early Jul 2018 Hx Seizures: Yes Hx Peripheral Neuropathy: Yes Hx Head Trauma: Yes Hx Dizziness: Yes Hx Headaches: Yes Hx Weakness: Yes - left arm, left leg Review of Systems Constitutional: Reports: malaise; Denies: fever Gastrointestinal: Reports: diarrhea, nausea, vomiting Musculoskeletal: Reports: back pain Neurological: Reports: headache All Other Systems: negative except mentioned in HPI Physical Exam Vital Signs Date Time Temp Pulse Resp B/P (MAP) Pulse Ox O2 Delivery O2 Flow Rate FiO2 10/04/18 01:45 98.1 88 16 136/82 24 Room Air Sp02 EP Interpretation: reviewed, normal General Appearance: no apparent distress, alert, GCS 15, non-toxic, Chronically Ill Head: normocephalic, atraumatic Eyes: bilateral eye normal inspection ENT: hearing grossly normal, normal pharynx, no angioedema, normal voice, dry mucus membranes Neck: full range of motion, supple/symm/no masses Respiratory: chest non-tender, lungs clear, normal breath sounds, no rhonchi, no respiratory distress, no retraction, no accessory muscle use, speaking full sentences Cardiovascular #1: regular rate, rhythm, no edema, no gallop, no JVD, no murmur , no rub Gastrointestinal: normal bowel sounds, non tender, soft, no mass, no organomegaly, no peritonitis, no bruit, non-distended, no guarding, no rebound Rectal: deferred Genitourinary: normal inspection, no CVA tenderness Musculoskeletal: normal range of motion, non-tender Neurologic: alert, oriented x3, responsive, motor strength/tone normal, sensory intact, speech normal Psychiatric: judgement/insight normal, memory normal, mood/affect normal Skin: normal color, no rash, warm/dry, well hydrated Medical Decision Making Diagnostic Impression: Primary Impression: Dehydration ER Course Mr. Chopra presents to ER from [facility] with hyperglycemia refractory to Insulin provided at SNF and here in ED. Admitted for IV hydration and BG management. Dr. Sepulveda notified and accepted admission. Labs Test 10/04/18 02:09 White Blood Count 10.2 K/UL (4.8-10.8) Red Blood Count 5.02 M/UL (4.70-6.10) Hemoglobin 14.7 G/DL (14.2-18.0) Hematocrit 41.8 % (42.0-52.0) Mean Corpuscular Volume 83 FL (80-99) Mean Corpuscular Hemoglobin 29.2 PG (27.0-31.0) Mean Corpuscular Hemoglobin Concent 35.1 G/DL (32.0-36.0) Red Cell Distribution Width 11.4 % (11.6-14.8) Platelet Count 169 K/UL (150-450) Mean Platelet Volume 9.0 FL (6.5-10.1) Neutrophils (%) (Auto) 56.4 % (45.0-75.0) Lymphocytes (%) (Auto) 33.7 % (20.0-45.0) Monocytes (%) (Auto) 7.4 % (1.0-10.0) Eosinophils (%) (Auto) 1.7 % (0.0-3.0) Basophils (%) (Auto) 0.7 % (0.0-2.0) Urine Color Pale yellow Urine Appearance Clear Urine pH 6.5 (4.5-8.0) Urine Specific [place] 1.010 (1.005-1.035) Urine Protein Negative (NEGATIVE) Urine Glucose (UA) 4+ (NEGATIVE) Urine Ketones Negative (NEGATIVE) Urine Blood Negative (NEGATIVE) Urine Nitrite Negative (NEGATIVE) Urine Bilirubin Negative (NEGATIVE) Urine Urobilinogen Normal MG/DL (0.0-1.0) Urine Leukocyte Esterase Negative (NEGATIVE) Sodium Level 130 MMOL/L (136-145) Potassium Level 4.5 MMOL/L (3.5-5.1) Chloride Level 96 MMOL/L (98-107) Carbon Dioxide Level 25 MMOL/L (21-32) Anion Gap 9 mmol/L (5-15) Blood Urea Nitrogen 18 mg/dL (7-18) Creatinine 1.1 MG/DL (0.55-1.30) Estimat Glomerular Filtration Rate > 60 mL/min (>60) Glucose Level 527 MG/DL (74-106) Calcium Level 8.8 MG/DL (8.5-10.1) Magnesium Level 1.4 MG/DL (1.8-2.4) Total Bilirubin 0.2 MG/DL (0.2-1.0) Aspartate Amino Transf (AST/SGOT) 11 U/L (15-37) Alanine Aminotransferase (ALT/SGPT) 34 U/L (12-78) Alkaline Phosphatase 65 U/L (46-116) Total Protein 6.7 G/DL (6.4-8.2) Albumin 3.3 G/DL (3.4-5.0) Globulin 3.4 g/dL Albumin/Globulin Ratio 1.0 (1.0-2.7) Acetone Level Negative (NEGATIVE) Last Vital Signs Date Time Temp Pulse Resp B/P (MAP) Pulse Ox O2 Delivery O2 Flow Rate FiO2 10/04/18 01:45 98.1 88 16 136/82 24 Room Air Disposition: ADMITTED INPATIENT Condition: Stable Remedios Landers MD Oct 04, 2018 01:54
[2018-10-04 02:22] LABS: APPEARANCE,URINE CLEAR; BILIRUBIN, URINE NEGATIVE (NEGATIVE); COLOR,URINE PALE YELLOW; GLUCOSE, URINE (UA) 4+ (NEGATIVE); KETONES,URINE NEGATIVE (NEGATIVE); LEUKOCYTE ESTERASE ,URINE NEGATIVE (NEGATIVE); NITRITE,URINE NEGATIVE (NEGATIVE); PH,URINE 6.5 (4.5-8.0); PROTEIN,URINE NEGATIVE (NEGATIVE); UROBILINOGEN,URINE NORMAL MG/DL (0.0-1.0)
[2018-10-04 02:24] LABS: BASOPHILS % (AUTO) 0.7 % (0.0-2.0); EOSINOPHILS % (AUTO) 1.7 % (0.0-3.0); HEMATOCRIT 41.8 % (42.0-52.0); HEMOGLOBIN 14.7 G/DL (14.2-18.0); LYMPHOCYTES % (AUTO) 33.7 % (20.0-45.0); MEAN CORPUSCULAR VOLUME 83 FL (80-99); MONOCYTES % (AUTO) 7.4 % (1.0-10.0); NEUTROPHILS % (AUTO) 56.4 % (45.0-75.0); PLATELET COUNT 169 K/UL (150-450); RED BLOOD COUNT 5.02 M/UL (4.70-6.10); RED CELL DISTRIBUTION WIDTH 11.4 % (11.6-14.8); WHITE BLOOD COUNT 10.2 K/UL (4.8-10.8)
[2018-10-04 02:41] LABS: ALANINE AMINOTRANSFERASE 34 U/L (12-78); ALBUMIN 3.3 G/DL (3.4-5.0); ALKALINE PHOSPHATASE 65 U/L (46-116); ANION GAP 9 mmol/L (5-15); ASPARTATE AMINO TRANSFERASE 11 U/L (15-37); BILIRUBIN,TOTAL 0.2 MG/DL (0.2-1.0); BLOOD UREA NITROGEN 18 mg/dL (7-18); CALCIUM 8.8 MG/DL (8.5-10.1); CARBON DIOXIDE 25 MMOL/L (21-32); CHLORIDE 96 MMOL/L (98-107); CREATININE 1.1 MG/DL (0.55-1.30); POTASSIUM 4.5 MMOL/L (3.5-5.1); SODIUM 130 MMOL/L (136-145)
[2018-10-04] MEDS ORDERED: Insulin Human Regular 100units/ml 3ml IV ONE ×2 (03:15→03:45)
[2018-10-04] MEDS ORDERED: Sodium Chloride 500ML 500 ML IVLG SCH (03:51)
[2018-10-04] MEDS ORDERED: ALPRAZolam 0.5mg tab ORAL PRN (05:15)
[2018-10-04] MEDS ORDERED: LORazepam 1mg tab ORAL PRN (06:45)
[2018-10-04] MEDS ORDERED: Ketorolac 30mg Inj IV PRN (07:00)
[2018-10-04] MEDS ORDERED: Miralax 17gm pkt ORAL PRN (07:00)
[2018-10-04] MEDS ORDERED: Albuterol/Ipratropium 3ml neb HHN PRN (07:00)
[2018-10-04] MEDS ORDERED: Mylanta II UD 30ml ORAL PRN (07:00)
[2018-10-04] MEDS ORDERED: Nitroglycerin Subl 0.4mg tab SL PRN (07:00)
[2018-10-04] MEDS: Heparin 5000 units/ml inj SUBQ SCH ×2 (09:00→20:39)
[2018-10-04] MEDS ORDERED: Depakote 500mg tab ORAL SCH (09:00)
[2018-10-04] MEDS: Depakote 500mg tab ORAL SCH ×2 (09:38→20:35)
[2018-10-04] MEDS: Morphine Sulfate 2mg/ml Inj IVP PRN ×4 (09:41→22:07)
[2018-10-04] MEDS: NovoLOG Insulin Flexpen SUBQ SCH ×3 (12:30→20:36)
--- NOTE | 2018-10-04 12:56 | Consultation ---
History of Present Illness General Date patient seen: Oct 04, 2018 Chief Complaint: Abnormal Labs Present Illness HPI 38 yo male with hx of insulin-dependent diabetes, COPD, Chiari malformation, CVA, seizure disorder, schizoaffective disorder who presents from [facility] with hyperglycemia. His Blood sugar was greater than 500. Blood sugar was in ER 400 after receiving 14 units of insulin per nursing staff. He has been sick for several days. He's had nausea vomiting diarrhea. He is admitted for further evaluation. Allergies: Coded Allergies: HALOPERIDOL (Verified Allergy, Unknown, 07/30/18) Medication History Scheduled Aspirin* (Aspir 81*), 81 MG ORAL DAILY, (Reported) Divalproex Sodium (Depakote), 500 MG PO EVERY MORNING , (Reported) Divalproex Sodium* (Depakote*), 500 MG PO BEDTIME, (Reported) Escitalopram Oxalate* (Lexapro*), 10 MG ORAL DAILY, (Reported) Heparin Sod (Porcine) (Heparin Sodium*), 5,000 UNITS SUBQ EVERY 12 HOURS, ( Reported) Metoprolol Succinate* (Metoprolol Succinate*), 25 MG ORAL DAILY , (Reported) Quetiapine Fumarate* (Seroquel*), 200 MG ORAL BEDTIME, (Reported) Scheduled PRN Acetaminophen* (Acetaminophen 325MG Tablet*), 650 MG ORAL Q4H PRN for fever, ( Reported) Clonidine Hcl* (Catapres*), 0.1 MG ORAL Q4HR PRN for For High Blood Pressure, ( Reported) Hydrocodone Bit/Acetaminophen 10-325* ([place] 10-325*), 1 TAB ORAL Q4H PRN for For Pain, (Reported) Ipratropium/Albuterol Sulfate (DuoNeb 0.5-3(2.5)mg/3ml), 3 ML HHN Q4HR PRN for Shortness of Breath, (Reported) Lorazepam* (Lorazepam*), 1 MG ORAL Q4HR PRN for For Anxiety, (Reported) Nitroglycerin (Nitrostat), 0.4 MG SL q5min x3 doses PRN for Prn Chest Pain, ( Reported) Ondansetron* (Zofran*), 4 MG ORAL Q4HR PRN for Nausea & Vomiting, (Reported) Polyethylene Glycol 3350* (Polyethylene Glycol 3350*), 17 GM ORAL BEDTIME PRN for Constipation, (Reported) Temazepam* (Restoril*), 15 MG ORAL BEDTIME PRN for Insomnia, (Reported) Miscellaneous Medications Insulin Aspart (Novolog Flexpen), SUBQ, (Reported) Patient History Healthcare decision maker Resuscitation status Full Code Advanced Directive on File Past Medical/Surgical History Past Medical/Surgical History: (1) Hydrocephalus (2) Chiari malformation type II (3) Degenerative disc disease, cervical (4) Peripheral neuropathy (5) Diabetes mellitus (6) COPD (chronic obstructive pulmonary disease) (7) Psychosomatic disorder (8) Noncompliance Review of Systems All Other Systems: negative except mentioned in HPI Physical Exam General Appearance: WD/WN Lines, tubes and drains: peripheral HEENT: normocephalic Respiratory/Chest: chest wall non-tender, lungs clear Breasts: no masses Cardiovascular/Chest: normal rate Abdomen: normal bowel sounds Genitourinary/Rectal: normal genital exam, normal rectal exam 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 Last 24 Hour Vital Signs Date Time Temp Pulse Resp B/P (MAP) Pulse Ox O2 Delivery O2 Flow Rate FiO2 10/04/18 12:00 96.8 83 20 121/78 (92) 97 10/04/18 10:11 98.6 10/04/18 09:00 Room Air 10/04/18 08:00 98.6 80 20 131/77 (95) 97 10/04/18 06:20 Room Air 10/04/18 06:17 Room Air 10/04/18 05:10 98.0 89 18 119/60 (79) 95 10/04/18 05:05 98.2 80 18 133/75 99 Room Air 10/04/18 04:40 98.2 80 18 133/75 99 Room Air 10/04/18 01:48 98.4 75 18 130/88 22 Room Air 10/04/18 01:45 98.1 88 16 136/82 24 Room Air Intake and Output 10/03/18 10/04/18 19:00 07:00 Output Total 1100 ml Balance -1100 ml Output Urine Total 1100 ml # Voids 1 Laboratory Tests Test 10/04/18 02:09 White Blood Count 10.2 K/UL (4.8-10.8) Red Blood Count 5.02 M/UL (4.70-6.10) Hemoglobin 14.7 G/DL (14.2-18.0) Hematocrit 41.8 % (42.0-52.0) L Mean Corpuscular Volume 83 FL (80-99) Mean Corpuscular Hemoglobin 29.2 PG (27.0-31.0) Mean Corpuscular Hemoglobin Concent 35.1 G/DL (32.0-36.0) Red Cell Distribution Width 11.4 % (11.6-14.8) L Platelet Count 169 K/UL (150-450) Mean Platelet Volume 9.0 FL (6.5-10.1) Neutrophils (%) (Auto) 56.4 % (45.0-75.0) Lymphocytes (%) (Auto) 33.7 % (20.0-45.0) Monocytes (%) (Auto) 7.4 % (1.0-10.0) Eosinophils (%) (Auto) 1.7 % (0.0-3.0) Basophils (%) (Auto) 0.7 % (0.0-2.0) Urine Color Pale yellow Urine Appearance Clear Urine pH 6.5 (4.5-8.0) Urine Specific [place] 1.010 (1.005-1.035) Urine Protein Negative (NEGATIVE) Urine Glucose (UA) 4+ (NEGATIVE) H Urine Ketones Negative (NEGATIVE) Urine Blood Negative (NEGATIVE) Urine Nitrite Negative (NEGATIVE) Urine Bilirubin Negative (NEGATIVE) Urine Urobilinogen Normal MG/DL (0.0-1.0) Urine Leukocyte Esterase Negative (NEGATIVE) Sodium Level 130 MMOL/L (136-145) L Potassium Level 4.5 MMOL/L (3.5-5.1) Chloride Level 96 MMOL/L (98-107) L Carbon Dioxide Level 25 MMOL/L (21-32) Anion Gap 9 mmol/L (5-15) Blood Urea Nitrogen 18 mg/dL (7-18) Creatinine 1.1 MG/DL (0.55-1.30) Estimat Glomerular Filtration Rate > 60 mL/min (>60) Glucose Level 527 MG/DL (74-106) *H Calcium Level 8.8 MG/DL (8.5-10.1) Magnesium Level 1.4 MG/DL (1.8-2.4) L Total Bilirubin 0.2 MG/DL (0.2-1.0) Aspartate Amino Transf (AST/SGOT) 11 U/L (15-37) L Alanine Aminotransferase (ALT/SGPT) 34 U/L (12-78) Alkaline Phosphatase 65 U/L (46-116) Total Protein 6.7 G/DL (6.4-8.2) Albumin 3.3 G/DL (3.4-5.0) L Globulin 3.4 g/dL Albumin/Globulin Ratio 1.0 (1.0-2.7) Acetone Level Negative (NEGATIVE) Height (Feet): 5 Height (Inches): 11.00 Weight (Pounds): 235 Medications Current Medications Medications (Trade) Dose Ordered Sig/Sofia Route PRN Reason Start Time Stop Time Status Last Admin Dose Admin Acetaminophen (Tylenol) 650 mg Q4H PRN ORAL fever 10/04/18 07:00 11/03/18 06:59 Al Hydroxide/Mg Hydroxide (Mylanta II) 30 ml Q6H PRN ORAL dyspepsia 10/04/18 07:00 11/03/18 06:59 Albuterol/ Ipratropium (Albuterol/ Ipratropium) 3 ml Q4H PRN HHN Shortness of Breath 10/04/18 07:00 10/09/18 06:59 Alprazolam (Xanax) 0.5 mg Q6H PRN ORAL For Anxiety 10/04/18 05:15 10/11/18 05:14 Clonidine HCl (Catapres Tab) 0.1 mg Q4H PRN ORAL SBP more than 160mmHg 10/04/18 07:00 11/03/18 06:59 Dextrose (Dextrose 50%) 25 ml Q30M PRN IV Hypoglycemia 10/04/18 07:00 11/03/18 06:59 Dextrose (Dextrose 50%) 50 ml Q30M PRN IV Hypoglycemia 10/04/18 07:00 11/03/18 06:59 Divalproex Sodium (Depakote) 1,000 mg EVERY 12 HOURS ORAL 10/04/18 09:00 11/03/18 08:59 10/04/18 09:38 Escitalopram Oxalate (Lexapro) 10 mg DAILY ORAL 10/04/18 09:00 11/03/18 08:59 10/04/18 09:38 Heparin Sodium (Porcine) (Heparin 5000 units/ml) 5,000 units EVERY 12 HOURS SUBQ 10/04/18 09:00 11/03/18 08:59 Insulin Aspart (NovoLOG) BEFORE MEALS AND HS SUBQ 10/04/18 11:30 11/03/18 11:29 10/04/18 12:30 Ketorolac Tromethamine (Toradol 30mg) 30 mg Q6H PRN IV moderate pain 4-6 10/04/18 07:00 10/09/18 06:59 Morphine Sulfate (Morphine Sulfate) 2 mg Q4H PRN IVP severe pain 7-10 10/04/18 07:00 10/11/18 06:59 10/04/18 09:41 Nitroglycerin (Ntg) 0.4 mg Q5M X 3 DOSES PRN SL Prn Chest Pain 10/04/18 07:00 11/03/18 06:59 Ondansetron HCl (Zofran) 4 mg Q6H PRN IVP Nausea & Vomiting 10/04/18 07:00 11/03/18 06:59 Polyethylene Glycol (Miralax) 17 gm HSPRN PRN ORAL Constipation 10/04/18 07:00 11/03/18 06:59 Quetiapine Fumarate (SEROquel) 200 mg QHS ORAL 10/04/18 21:00 11/03/18 20:59 Sodium Chloride 1,000 ml @ 100 mls/hr Q10H IVLG 10/04/18 07:00 11/03/18 06:59 10/04/18 07:00 Temazepam (Restoril) 15 mg HSPRN PRN ORAL Insomnia 10/04/18 21:00 10/11/18 20:59 Assessment/Plan Problem List: (1) Hyperglycemia due to type 2 diabetes mellitus ICD Codes: E11.65 - Type 2 diabetes mellitus with hyperglycemia SNOMED: 363548918791586 (2) COPD (chronic obstructive pulmonary disease) ICD Codes: J44.9 - Chronic obstructive pulmonary disease, unspecified SNOMED: 04308091 (3) Peripheral neuropathy ICD Codes: G62.9 - Peripheral neuropathy SNOMED: 15249410 (4) Lumbar degenerative disc disease ICD Codes: M51.36 - Lumbar degenerative disc disease SNOMED: 00131150 (5) CVA (cerebral vascular accident) ICD Codes: I63.9 - Cerebral infarction, unspecified SNOMED: 236628636 (6) Psychosomatic disorder ICD Codes: F45.9 - Somatoform disorder, unspecified SNOMED: 64922785 (7) Noncompliance ICD Codes: Z91.19 - Patient's noncompliance with other medical treatment and regimen SNOMED: 2016065 (8) Diabetes mellitus ICD Codes: E11.9 - Diabetes mellitus SNOMED: 60394747 Assessment/Plan sliding scale diabetic diet Endo evaluation symptomatic treatment Lashanda Pham MD Oct 04, 2018 12:56
--- NOTE | 2018-10-04 14:57 | Consultation ---
Consult Note Consult Note asked to eval for hypoNatremia Mr. Chopra is a 38 yo male with hx of insulin-dependent diabetes, COPD, Chiari malformation, CVA, seizure disorder, schizoaffective disorder who presents from [facility] with hyperglycemia. Blood sugar was greater than 500. Blood sugar is now 400 receiving 14 units of insulin per nursing staff. Personal physician recommended evaluation in the emergency room. Mr. Chopra explains that he's been sick for several days. He's had nausea vomiting. He's had diarrhea. He denies abdominal pain. Allergies: HALOPERIDOL (Verified Allergy, Unknown, 07/30/18) Hx Hypertension: Yes Hx COPD: Yes Hx Diabetes: Yes - DM2 Hx Gastrointestinal Problems: Yes Hx Neurological Problems: Yes Hx Cerebrovascular Accident: Yes - early Jul 2018 Hx Seizures: Yes Hx Peripheral Neuropathy: Yes Hx Head Trauma: Yes Hx Dizziness: Yes Hx Headaches: Yes Hx Weakness: Yes - left arm, left leg examined data reviewed Assessment/Plan Hyperglycemia due to type 2 diabetes mellitus Hyponatremia due to high blood sugar COPD (chronic obstructive pulmonary disease Peripheral neuropathy Lumbar degenerative disc disease CVA (cerebral vascular accident) Psychosomatic disorder Noncompliance Hydrocephalus Hydrate- BS control monitor electroltes per orders Sai Merino MD Oct 04, 2018 14:57
--- NOTE | 2018-10-04 17:15 | Consultation ---
DATE OF CONSULTATION: 10/04/2018 HISTORY OF PRESENT ILLNESS: This is a 38-year-old patient with hypoglycemia. The patient continues to have some confusion and disorganized thought process. because he has hypoglycemia, but he does have some mood lability, confusion, disorganized thought process. He has previous diagnosis of schizoaffective, bipolar type. He is having increased depression and mood lability worsened by stress of his medical illness. That is why his attending has requested daily psychiatric consultation for this patient. The patient feels depressed because his blood sugar has been dropping and he has had really bad health problems. He insists "I just feel like crap because my health is going down the drain" because of sleep complaint. MEDICAL PROBLEMS: He has hypoglycemia. Please see Internal Medicine note for other medical issues. ALLERGIES: No known drug allergies. MEDICATIONS: Psychotropic medications on admission, Seroquel 200 at bedtime, Depakote 1000 mg at bedtime, Xanax 0.5 mg every 6 hours p.r.n. anxiety and agitation. SUBSTANCE ABUSE HISTORY: Denies any recent drug and alcohol use. PAIN ASSESSMENT: pain. DEVELOPMENTAL PROBLEMS: Denies. SOCIAL HISTORY: The patient lives in [facility]. Financially supported by [employer] and Medicare. PSYCHIATRIC HISTORY: History of schizoaffective, bipolar type. He has had multiple psychiatric admissions. STRENGTHS: He is motivated to get better and has a place to live. WEAKNESSES AND LIABILITIES: He has poor finances. No social support network. MENTAL STATUS EXAMINATION: The patient is a 38-year-old male. Appearance is disheveled. Attitude, irritable and agitated. Affect, guarded and restricted. Intellect poor. Mood depressed and anxious. Motor activity, psychomotor agitation. Attention span is poor. Orientation x2. Speech is pressured. Thought process, disorganized and illogical. Thought content, auditory hallucinations and paranoid delusions. Insight and judgment is poor. DIAGNOSES: 1. Schizoaffective, bipolar type. 2. Medical, . 3. Psychosocial stressors, financial. PLAN: Treat him with Seroquel 200 at bedtime, Depakote 1000 mg at bedtime, Xanax 0.5 mg every 6 hours p.r.n. anxiety and agitation. Also provide him with 20 minutes of cognitive behavioral therapy to help him identify his automatic negative thoughts and help to convert those negative thoughts to more positive thinking to reduce depression and anxiety. Chart reviewed and discussed with staff. Seen and assessed in his room. Charmaine Victor M.D. DR: Shania JOB#: [id number] CC:
--- NOTE | 2018-10-04 20:15 | History and Physical Report ---
DATE OF ADMISSION: 10/04/2018 CONSULTANTS: 1. Lashanda Pham M.D. 2. Charmaine Victor M.D. 3. Tavo Malhotra M.D. 4. Antonio Napier M.D. CHIEF COMPLAINT: 1. Diabetes. 2. Hyperglycemia. 3. Low back pain. BRIEF HISTORY: This is a 38-year-old male from [facility], presented with the above-mentioned diagnosis, blood sugar up in the 400. The patient is admitted to medical floor for above-mentioned diagnosis and treated. Currently, calm in bed. No complaint. Slight back pain. No chest pain. No shortness of breath. No nausea, vomiting, or diarrhea. PAST MEDICAL HISTORY: Diabetes, hypertension, low back pain, depression, chronic obstructive pulmonary disease, CVA, and seizure. PAST SURGICAL HISTORY: Back and neck surgery. MEDICATION: Include Seroquel, Restoril, NovoLog, Depakote, Lexapro, heparin, albuterol, and Tylenol. ALLERGIES: Haldol. SOCIAL HISTORY: Positive smoke. No alcohol. No intravenous drug abuse. FAMILY HISTORY: Noncontributory. PHYSICAL EXAMINATION: GENERAL: Calm in bed, oriented x3, and in no acute distress. VITAL SIGNS: Temperature 96, pulse 83, respirations 20, and blood pressure 121/78. CARDIOVASCULAR: There is no murmur. LUNGS: Distant and clear. ABDOMEN: Bowel sounds positive. Nontender. Nondistended. EXTREMITIES: Show no cyanosis or edema. NEUROLOGIC: The patient moves all extremities, slightly weak. LABORATORY AND DIAGNOSTIC DATA: Labs, at this time, show CBC is normal. BMP show sodium 130, chloride 96, and glucose 527. Urine tox is negative. Urinalysis, 4+ glucose. ASSESSMENT: 1. Diabetes. 2. Hyperglycemia. 3. Hypertension. 4. Renal insufficiency. 5. Chronic obstructive pulmonary disease. 6. Cerebrovascular accident. 7. Seizure. 8. Low back pain. 9. Depression. PLAN: 1. OT, PT, and dietary followup. 2. Blood sugar control. 3. Pain control. 4. Blood pressure control. 5. Resume home medications. 6. Seizure control. 7. We will add Dr. Merino for Nephrology consult. Aniceto Sepulveda D.O. DR: MAR[place]ETTA JOB#: [id number] CC:
[2018-10-04] MEDS: QUEtiapine 200mg tab ORAL SCH (20:34)
[2018-10-04] MEDS ORDERED: QUEtiapine 200mg tab ORAL SCH (21:00)
[2018-10-05] VITALS: BP 113/73
[2018-10-05] MEDS: Morphine Sulfate 2mg/ml Inj IVP PRN ×3 (02:19→18:40)
[2018-10-05 04:00] VITALS: BP 126/77
[2018-10-05] MEDS: NovoLOG Insulin Flexpen SUBQ SCH ×6 (06:33→20:31)
[2018-10-05 08:00] VITALS: BP 115/68
[2018-10-05] MEDS: Depakote 500mg tab ORAL SCH ×2 (08:35→20:28)
[2018-10-05] MEDS: Heparin 5000 units/ml inj SUBQ SCH ×2 (08:37→20:31)
--- NOTE | 2018-10-05 09:45 | General Progress Note ---
Assessment/Plan Problem List: (1) COPD (chronic obstructive pulmonary disease) ICD Codes: J44.9 - Chronic obstructive pulmonary disease, unspecified SNOMED: 77533861 (2) Uncontrolled seizures ICD Codes: R56.9 - Unspecified convulsions SNOMED: 28186595 (3) Noncompliance ICD Codes: Z91.19 - Patient's noncompliance with other medical treatment and regimen SNOMED: 2266698 Assessment/Plan add Levemir 24 untis qam add Novolog 8 units ac tid continue NISS ac / hs Subjective Allergies: Coded Allergies: HALOPERIDOL (Verified Allergy, Unknown, 07/30/18) All Systems: reviewed and negative except above Subjective Mr. Chopra is a 38 yo male with hx of insulin-dependent diabetes, COPD, Chiari malformation, CVA, seizure disorder, schizoaffective disorder who presents from [facility] with hyperglycemia. Blood sugar was greater than 500. Blood sugar is now 400 receiving 14 units of insulin per nursing staff Objective Last 24 Hour Vital Signs Date Time Temp Pulse Resp B/P (MAP) Pulse Ox O2 Delivery O2 Flow Rate FiO2 10/05/18 08:00 97.7 90 20 115/68 (84) 96 10/05/18 04:00 98.2 86 20 126/77 (93) 96 10/05/18 00:00 98.4 84 20 113/73 (86) 96 10/04/18 21:00 Room Air 10/04/18 20:00 98.5 86 20 128/76 (93) 96 10/04/18 18:32 96.3 10/04/18 16:00 96.3 97 17 121/79 (93) 96 10/04/18 12:00 96.8 83 20 121/78 (92) 97 Intake and Output 10/04/18 10/05/18 19:00 07:00 Intake Total 2280 ml 1580 ml Output Total 1800 ml 2425 ml Balance 480 ml -845 ml Intake Oral 1080 ml 480 ml IV Total 1200 ml 1100 ml Output Urine Total 1800 ml 2425 ml Height (Feet): 5 Height (Inches): 11.00 Weight (Pounds): 235 General Appearance: no apparent distress Neck: normal alignment Cardiovascular: normal rate Respiratory/Chest: lungs clear Abdomen: normal bowel sounds Pelvis: normal external exam Objective Current Medications Medications (Trade) Dose Ordered Sig/Sofia Route PRN Reason Start Time Stop Time Status Last Admin Dose Admin Acetaminophen (Tylenol) 650 mg Q4H PRN ORAL fever 10/04/18 07:00 11/03/18 06:59 Albuterol/ Ipratropium (Albuterol/ Ipratropium) 3 ml Q4H PRN HHN Shortness of Breath 10/04/18 07:00 10/09/18 06:59 Alprazolam (Xanax) 0.5 mg Q6H PRN ORAL For Anxiety 10/04/18 05:15 10/11/18 05:14 Clonidine HCl (Catapres Tab) 0.1 mg Q4H PRN ORAL SBP more than 160mmHg 10/04/18 07:00 11/03/18 06:59 Dextrose (Dextrose 50%) 25 ml Q30M PRN IV Hypoglycemia 10/04/18 07:00 11/03/18 06:59 Dextrose (Dextrose 50%) 50 ml Q30M PRN IV Hypoglycemia 10/04/18 07:00 11/03/18 06:59 Divalproex Sodium (Depakote) 1,000 mg EVERY 12 HOURS ORAL 10/04/18 09:00 11/03/18 08:59 10/05/18 08:35 Escitalopram Oxalate (Lexapro) 10 mg DAILY ORAL 10/04/18 09:00 11/03/18 08:59 10/05/18 08:35 Heparin Sodium (Porcine) (Heparin 5000 units/ml) 5,000 units EVERY 12 HOURS SUBQ 10/04/18 09:00 11/03/18 08:59 Insulin Aspart (NovoLOG) BEFORE MEALS AND HS SUBQ 10/04/18 11:30 11/03/18 11:29 10/05/18 06:33 Morphine Sulfate (Morphine Sulfate) 4 mg Q4H PRN IVP Severe Pain (Pain Scale 7-10) 10/05/18 08:30 10/12/18 08:29 Nitroglycerin (Ntg) 0.4 mg Q5M X 3 DOSES PRN SL Prn Chest Pain 10/04/18 07:00 11/03/18 06:59 Ondansetron HCl (Zofran) 4 mg Q6H PRN IVP Nausea & Vomiting 10/04/18 07:00 11/03/18 06:59 Pantoprazole (Protonix) 40 mg EVERY 12 HOURS ORAL 10/04/18 21:00 11/03/18 20:59 10/05/18 08:35 Polyethylene Glycol (Miralax) 17 gm HSPRN PRN ORAL Constipation 10/04/18 07:00 11/03/18 06:59 Quetiapine Fumarate (SEROquel) 200 mg QHS ORAL 10/04/18 21:00 11/03/18 20:59 10/04/18 20:34 Sodium Chloride 1,000 ml @ 100 mls/hr Q10H IVLG 10/04/18 07:00 11/03/18 06:59 10/05/18 02:19 Temazepam (Restoril) 15 mg HSPRN PRN ORAL Insomnia 10/04/18 21:00 10/11/18 20:59 Item Value Date Time Bedside Blood Glucose 284 mg/dl H 10/05/18 0633 Bedside Blood Glucose 277 mg/dl H 10/04/18 2100 Bedside Blood Glucose 398 mg/dl H 10/04/18 1634 Bedside Blood Glucose 327 mg/dl H 10/04/18 1230 Bedside Blood Glucose 356 mg/dl H 10/04/18 0451 Tavo Malhotra MD Oct 05, 2018 09:45
[2018-10-05 10:03] LABS: BASOPHILS % (AUTO) 0.9 % (0.0-2.0); EOSINOPHILS % (AUTO) 2.1 % (0.0-3.0); HEMATOCRIT 40.3 % (42.0-52.0); HEMOGLOBIN 14.2 G/DL (14.2-18.0); LYMPHOCYTES % (AUTO) 37.7 % (20.0-45.0); MEAN CORPUSCULAR VOLUME 84 FL (80-99); MONOCYTES % (AUTO) 7.9 % (1.0-10.0); NEUTROPHILS % (AUTO) 51.5 % (45.0-75.0); PLATELET COUNT 147 K/UL (150-450); RED BLOOD COUNT 4.79 M/UL (4.70-6.10); WHITE BLOOD COUNT 8.6 K/UL (4.8-10.8)
[2018-10-05] MEDS: Morphine Sulfate 4mg/ml Inj (IV/IM USE ONLY) IVP PRN ×2 (10:28→14:30)
[2018-10-05 10:34] LABS: ALANINE AMINOTRANSFERASE 38 U/L (12-78); ALBUMIN/GLOBULIN RATIO 0.9 (1.0-2.7); ALKALINE PHOSPHATASE 57 U/L (46-116); ANION GAP 7 mmol/L (5-15); ASPARTATE AMINO TRANSFERASE 18 U/L (15-37); BILIRUBIN,TOTAL 0.3 MG/DL (0.2-1.0); BLOOD UREA NITROGEN 12 mg/dL (7-18); CALCIUM 8.3 MG/DL (8.5-10.1); CARBON DIOXIDE 26 MMOL/L (21-32); CHLORIDE 101 MMOL/L (98-107); CHOLESTEROL 100 MG/DL (< 200); CREATININE 0.9 MG/DL (0.55-1.30); HDL CHOLESTEROL 28 MG/DL (40-60); POTASSIUM 3.8 MMOL/L (3.5-5.1); SODIUM 134 MMOL/L (136-145); TRIGLYCERIDES 335 MG/DL (30-150)
[2018-10-05] MEDS: Levemir Flexpen SUBQ SCH (10:39)
[2018-10-05 10:44] LABS: PHOSPHORUS 2.5 MG/DL (2.5-4.9)
[2018-10-05 12:00] VITALS: BP 129/76
--- NOTE | 2018-10-05 12:01 | Pulmonology Progress Note ---
Assessment/Plan Problems: (1) Hyperglycemia due to type 2 diabetes mellitus (2) COPD (chronic obstructive pulmonary disease) (3) Peripheral neuropathy (4) Lumbar degenerative disc disease (5) CVA (cerebral vascular accident) (6) Psychosomatic disorder (7) Noncompliance (8) Diabetes mellitus Assessment/Plan sliding scale diabetic diet respiratory treatment sliding scale dvt prophylaxis pt/ot Subjective ROS Limited/Unobtainable: No Constitutional: Reports: no symptoms HEENT: Repors: no symptoms Respiratory: Reports: no symptoms Allergies: Coded Allergies: HALOPERIDOL (Verified Allergy, Unknown, 07/30/18) Objective Last 24 Hour Vital Signs Date Time Temp Pulse Resp B/P (MAP) Pulse Ox O2 Delivery O2 Flow Rate FiO2 10/05/18 09:00 Room Air 10/05/18 08:00 97.7 90 20 115/68 (84) 96 10/05/18 04:00 98.2 86 20 126/77 (93) 96 10/05/18 00:00 98.4 84 20 113/73 (86) 96 10/04/18 21:00 Room Air 10/04/18 20:00 98.5 86 20 128/76 (93) 96 10/04/18 18:32 96.3 10/04/18 16:00 96.3 97 17 121/79 (93) 96 10/04/18 12:00 96.8 83 20 121/78 (92) 97 Intake and Output 10/04/18 10/05/18 19:00 07:00 Intake Total 2280 ml 1580 ml Output Total 1800 ml 2425 ml Balance 480 ml -845 ml Intake Oral 1080 ml 480 ml IV Total 1200 ml 1100 ml Output Urine Total 1800 ml 2425 ml General Appearance: WD/WN HEENT: normocephalic, atraumatic Respiratory/Chest: chest wall non-tender, lungs clear Cardiovascular: normal peripheral pulses, normal rate Abdomen: normal bowel sounds, soft, non tender Genitourinary: normal external genitalia Extremities: no clubbing 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 Laboratory Tests 10/05/18 09:40: White Blood Count 8.6, Red Blood Count 4.79, Hemoglobin 14.2, Hematocrit 40.3L, Mean Corpuscular Volume 84, Mean Corpuscular Hemoglobin 29.7, Mean Corpuscular Hemoglobin Concent 35.3, Red Cell Distribution Width 12.0, Platelet Count 147L, Mean Platelet Volume 8.3, Neutrophils (%) (Auto) 51.5, Lymphocytes (%) (Auto) 37.7, Monocytes (%) (Auto) 7.9, Eosinophils (%) (Auto) 2.1, Basophils (%) (Auto ) 0.9, Sodium Level 134L, Potassium Level 3.8, Chloride Level 101, Carbon Dioxide Level 26, Anion Gap 7, Blood Urea Nitrogen 12, Creatinine 0.9, Estimat Glomerular Filtration Rate > 60, Glucose Level 365#H, Hemoglobin A1c 9.9H, Uric Acid 7.1, Calcium Level 8.3L, Phosphorus Level 2.5, Magnesium Level 1.5L, Total Bilirubin 0.3, Aspartate Amino Transf (AST/SGOT) 18, Alanine Aminotransferase ( ALT/SGPT) 38, Alkaline Phosphatase 57, C-Reactive Protein, Quantitative 0.5, Total Protein 6.2L, Albumin 3.0L, Globulin 3.2, Albumin/Globulin Ratio 0.9L, Triglycerides Level 335H, Cholesterol Level 100, LDL Cholesterol 57, HDL Cholesterol 28L, Cholesterol/HDL Ratio 3.6, Vitamin B12 Level 638, Folate 16.8, Thyroid Stimulating Hormone (TSH) 3.081 Current Medications Medications (Trade) Dose Ordered Sig/Sofia Route PRN Reason Start Time Stop Time Status Last Admin Dose Admin Acetaminophen (Tylenol) 650 mg Q4H PRN ORAL fever 10/04/18 07:00 11/03/18 06:59 Albuterol/ Ipratropium (Albuterol/ Ipratropium) 3 ml Q4H PRN HHN Shortness of Breath 10/04/18 07:00 10/09/18 06:59 Alprazolam (Xanax) 0.5 mg Q6H PRN ORAL For Anxiety 10/04/18 05:15 10/11/18 05:14 Clonidine HCl (Catapres Tab) 0.1 mg Q4H PRN ORAL SBP more than 160mmHg 10/04/18 07:00 11/03/18 06:59 Dextrose (Dextrose 50%) 25 ml Q30M PRN IV Hypoglycemia 10/05/18 09:45 11/04/18 09:44 Dextrose (Dextrose 50%) 50 ml Q30M PRN IV Hypoglycemia 10/05/18 09:45 11/04/18 09:44 Divalproex Sodium (Depakote) 1,000 mg EVERY 12 HOURS ORAL 10/04/18 09:00 11/03/18 08:59 10/05/18 08:35 Escitalopram Oxalate (Lexapro) 10 mg DAILY ORAL 10/04/18 09:00 11/03/18 08:59 10/05/18 08:35 Heparin Sodium (Porcine) (Heparin 5000 units/ml) 5,000 units EVERY 12 HOURS SUBQ 10/04/18 09:00 11/03/18 08:59 Insulin Aspart (NovoLOG) BEFORE MEALS AND HS SUBQ 10/04/18 11:30 11/03/18 11:29 10/05/18 06:33 Insulin Aspart (NovoLOG) 8 units NOVOTIAC SUBQ 10/05/18 11:50 11/04/18 11:49 Insulin Detemir (Levemir) 24 units DAILY SUBQ 10/05/18 11:00 11/04/18 10:59 10/05/18 10:39 Morphine Sulfate (Morphine Sulfate) 4 mg Q4H PRN IVP Severe Pain (Pain Scale 7-10) 10/05/18 08:30 10/12/18 08:29 10/05/18 10:28 Nitroglycerin (Ntg) 0.4 mg Q5M X 3 DOSES PRN SL Prn Chest Pain 10/04/18 07:00 11/03/18 06:59 Ondansetron HCl (Zofran) 4 mg Q6H PRN IVP Nausea & Vomiting 10/04/18 07:00 11/03/18 06:59 Pantoprazole (Protonix) 40 mg EVERY 12 HOURS ORAL 10/04/18 21:00 11/03/18 20:59 10/05/18 08:35 Polyethylene Glycol (Miralax) 17 gm HSPRN PRN ORAL Constipation 10/04/18 07:00 11/03/18 06:59 Quetiapine Fumarate (SEROquel) 200 mg QHS ORAL 10/04/18 21:00 11/03/18 20:59 10/04/18 20:34 Sodium Chloride 1,000 ml @ 100 mls/hr Q10H IVLG 10/04/18 07:00 11/03/18 06:59 10/05/18 02:19 Temazepam (Restoril) 15 mg HSPRN PRN ORAL Insomnia 10/04/18 21:00 10/11/18 20:59 Lashanda Pham MD Oct 05, 2018 12:01
--- NOTE | 2018-10-05 13:53 | Nephrology Progress Note ---
Assessment/Plan Problem List: (1) Hyperglycemia due to type 2 diabetes mellitus (2) Hyponatremia (3) COPD exacerbation Assessment Hyperglycemia due to type 2 diabetes mellitus Hyponatremia due to high blood sugar COPD (chronic obstructive pulmonary disease Peripheral neuropathy Lumbar degenerative disc disease CVA (cerebral vascular accident) Psychosomatic disorder Noncompliance Hydrocephalus Plan Hydrate- BS control monitor electroltes per orders Objective Objective Last 24 Hour Vital Signs Date Time Temp Pulse Resp B/P (MAP) Pulse Ox O2 Delivery O2 Flow Rate FiO2 10/05/18 12:00 98.1 90 18 129/76 (93) 96 10/05/18 09:00 Room Air 10/05/18 08:00 97.7 90 20 115/68 (84) 96 10/05/18 04:00 98.2 86 20 126/77 (93) 96 10/05/18 00:00 98.4 84 20 113/73 (86) 96 10/04/18 21:00 Room Air 10/04/18 20:00 98.5 86 20 128/76 (93) 96 10/04/18 18:32 96.3 10/04/18 16:00 96.3 97 17 121/79 (93) 96 Intake and Output 10/04/18 10/05/18 19:00 07:00 Intake Total 2280 ml 1580 ml Output Total 1800 ml 2425 ml Balance 480 ml -845 ml Intake Oral 1080 ml 480 ml IV Total 1200 ml 1100 ml Output Urine Total 1800 ml 2425 ml Laboratory Tests 10/05/18 09:40: White Blood Count 8.6, Red Blood Count 4.79, Hemoglobin 14.2, Hematocrit 40.3L, Mean Corpuscular Volume 84, Mean Corpuscular Hemoglobin 29.7, Mean Corpuscular Hemoglobin Concent 35.3, Red Cell Distribution Width 12.0, Platelet Count 147L, Mean Platelet Volume 8.3, Neutrophils (%) (Auto) 51.5, Lymphocytes (%) (Auto) 37.7, Monocytes (%) (Auto) 7.9, Eosinophils (%) (Auto) 2.1, Basophils (%) (Auto ) 0.9, Sodium Level 134L, Potassium Level 3.8, Chloride Level 101, Carbon Dioxide Level 26, Anion Gap 7, Blood Urea Nitrogen 12, Creatinine 0.9, Estimat Glomerular Filtration Rate > 60, Glucose Level 365#H, Hemoglobin A1c 9.9H, Uric Acid 7.1, Calcium Level 8.3L, Phosphorus Level 2.5, Magnesium Level 1.5L, Total Bilirubin 0.3, Aspartate Amino Transf (AST/SGOT) 18, Alanine Aminotransferase ( ALT/SGPT) 38, Alkaline Phosphatase 57, C-Reactive Protein, Quantitative 0.5, Total Protein 6.2L, Albumin 3.0L, Globulin 3.2, Albumin/Globulin Ratio 0.9L, Triglycerides Level 335H, Cholesterol Level 100, LDL Cholesterol 57, HDL Cholesterol 28L, Cholesterol/HDL Ratio 3.6, Vitamin B12 Level 638, Folate 16.8, Thyroid Stimulating Hormone (TSH) 3.081 Height (Feet): 5 Height (Inches): 11.00 Weight (Pounds): 235 Sai Merino MD Oct 05, 2018 13:53
--- NOTE | 2018-10-05 15:13 | General Progress Note ---
Assessment/Plan Problem List: (1) Renal insufficiency ICD Codes: N28.9 - Disorder of kidney and ureter, unspecified SNOMED: 828422581, 752398385 (2) Depressed ICD Codes: F32.9 - Major depressive disorder, single episode, unspecified SNOMED: 33136375 (3) Seizure ICD Codes: R56.9 - Unspecified convulsions SNOMED: 83293645 (4) Hyperglycemia due to type 2 diabetes mellitus ICD Codes: E11.65 - Type 2 diabetes mellitus with hyperglycemia SNOMED: 838584474615045 (5) Diabetes mellitus ICD Codes: E11.9 - Diabetes mellitus SNOMED: 41381429 (6) COPD (chronic obstructive pulmonary disease) ICD Codes: J44.9 - Chronic obstructive pulmonary disease, unspecified SNOMED: 46918135 (7) CVA (cerebral vascular accident) ICD Codes: I63.9 - Cerebral infarction, unspecified SNOMED: 186108153 Status: unchanged Assessment/Plan ot pt diet bs bp pain control cbc bmp am Subjective Constitutional: Reports: weakness Allergies: Coded Allergies: HALOPERIDOL (Verified Allergy, Unknown, 07/30/18) All Systems: reviewed and negative except above Subjective sl back pain Objective Last 24 Hour Vital Signs Date Time Temp Pulse Resp B/P (MAP) Pulse Ox O2 Delivery O2 Flow Rate FiO2 10/05/18 12:00 98.1 90 18 129/76 (93) 96 10/05/18 09:00 Room Air 10/05/18 08:00 97.7 90 20 115/68 (84) 96 10/05/18 04:00 98.2 86 20 126/77 (93) 96 10/05/18 00:00 98.4 84 20 113/73 (86) 96 10/04/18 21:00 Room Air 10/04/18 20:00 98.5 86 20 128/76 (93) 96 10/04/18 18:32 96.3 10/04/18 16:00 96.3 97 17 121/79 (93) 96 Intake and Output 10/04/18 10/05/18 19:00 07:00 Intake Total 2280 ml 1580 ml Output Total 1800 ml 2425 ml Balance 480 ml -845 ml Intake Oral 1080 ml 480 ml IV Total 1200 ml 1100 ml Output Urine Total 1800 ml 2425 ml Laboratory Tests 10/05/18 09:40: White Blood Count 8.6, Red Blood Count 4.79, Hemoglobin 14.2, Hematocrit 40.3L, Mean Corpuscular Volume 84, Mean Corpuscular Hemoglobin 29.7, Mean Corpuscular Hemoglobin Concent 35.3, Red Cell Distribution Width 12.0, Platelet Count 147L, Mean Platelet Volume 8.3, Neutrophils (%) (Auto) 51.5, Lymphocytes (%) (Auto) 37.7, Monocytes (%) (Auto) 7.9, Eosinophils (%) (Auto) 2.1, Basophils (%) (Auto ) 0.9, Sodium Level 134L, Potassium Level 3.8, Chloride Level 101, Carbon Dioxide Level 26, Anion Gap 7, Blood Urea Nitrogen 12, Creatinine 0.9, Estimat Glomerular Filtration Rate > 60, Glucose Level 365#H, Hemoglobin A1c 9.9H, Uric Acid 7.1, Calcium Level 8.3L, Phosphorus Level 2.5, Magnesium Level 1.5L, Total Bilirubin 0.3, Aspartate Amino Transf (AST/SGOT) 18, Alanine Aminotransferase ( ALT/SGPT) 38, Alkaline Phosphatase 57, C-Reactive Protein, Quantitative 0.5, Total Protein 6.2L, Albumin 3.0L, Globulin 3.2, Albumin/Globulin Ratio 0.9L, Triglycerides Level 335H, Cholesterol Level 100, LDL Cholesterol 57, HDL Cholesterol 28L, Cholesterol/HDL Ratio 3.6, Vitamin B12 Level 638, Folate 16.8, Thyroid Stimulating Hormone (TSH) 3.081 Height (Feet): 5 Height (Inches): 11.00 Weight (Pounds): 235 General Appearance: alert EENT: normal ENT inspection Neck: normal alignment Cardiovascular: normal peripheral pulses, normal rate, regular rhythm Respiratory/Chest: chest wall non-tender, lungs clear, normal breath sounds Abdomen: normal bowel sounds, non tender, soft Extremities: normal inspection Edema: no edema noted Arm (L), no edema noted Arm (R), no edema noted Leg (L), no edema noted Leg (R), no edema noted Pedal (L), no edema noted Pedal (R), no edema noted Generalized Neurologic: responsive, motor weakness Skin: normal pigmentation, warm/dry Aniceto Sepulveda DO Oct 05, 2018 15:13
[2018-10-05 16:00] VITALS: BP 136/78
--- NOTE | 2018-10-05 17:10 | General Progress Note ---
Assessment/Plan Assessment/Plan (1) Chiari malformation type II (2) Degenerative disc disease, cervical (3) Lumbar degenerative disc disease (4) Arthritis, lumbar spine (5) Peripheral neuropathy (6) Hydrocephalus (7) Diabetes mellitus Pt will be reduced on the Morphine 1mg IV Q6H PRN breakthrough pain and started on Trappe 10/325mg PO 1 tab Q4H PRN severe pain. Pt was d/w Dr. Napier and he concurred. Subjective Date patient seen: Oct 05, 2018 Time patient seen: 04:45 - pm Allergies: Coded Allergies: HALOPERIDOL (Verified Allergy, Unknown, 07/30/18) Subjective Constitutional: Reports: weakness, Denies: chills, diaphoresis, fever, malaise , no symptoms, other HEENT: Denies: blurred vision, double vision, ear discharge, ear pain, eye pain , mouth pain, mouth swelling, no symptoms, nose congestion, nose pain, other, tearing, throat pain, throat swelling Cardiovascular: Denies: chest pain, edema, irregular heart rate, lightheadedness, no symptoms, other, palpitations, syncope Respiratory: Denies: SOB at rest, SOB with excertion, cough, no symptoms, orthopnea, other, shortness of breath, sputum, stridor, wheezing Gastrointestinal/Abdominal: Denies: abdomen distended, abdominal pain, black stools, blood in stool, constipated, diarrhea, difficulty swallowing, nausea, no symptoms, other, poor appetite, poor fluid intake, rectal bleeding, tarry stools, vomiting Genitourinary: Denies: burning, discharge, flank pain, frequency, hematuria, incontinence, no symptoms, other, pain, urgency Neurologic/Psychiatric: Reports: headache, numbness, tingling, weakness, Denies : anxiety, depressed, emotional problems, no symptoms, other, paresthesia, pre- existing deficit, seizure, tremors Endocrine: Denies: excessive sweating, flushing, increased hunger, increased thirst, increased urine, intolerance to cold, intolerance to heat, no symptoms, other, unexplained weight gain, unexplained weight loss Hematologic/Lymphatic: Denies: anemia, easy bleeding, easy bruising, no symptoms, other Subjective Patient is a known patient and has been admitted under the care of Dr. Sepulveda. C/ o pain, Started on Morphine 4mg IV Q4H PRN severe pain and I d/w him about reducing the Morphine to 1mg IV Q6H PRN severe pain and starting the Trappe 10/325mg PO 1 tab Q4H PRN severe pain. Patient understands. Objective Last 24 Hour Vital Signs Date Time Temp Pulse Resp B/P (MAP) Pulse Ox O2 Delivery O2 Flow Rate FiO2 10/05/18 16:00 98.1 94 18 136/78 (97) 96 10/05/18 12:00 98.1 90 18 129/76 (93) 96 10/05/18 09:00 Room Air 10/05/18 08:00 97.7 90 20 115/68 (84) 96 10/05/18 04:00 98.2 86 20 126/77 (93) 96 10/05/18 00:00 98.4 84 20 113/73 (86) 96 10/04/18 21:00 Room Air 10/04/18 20:00 98.5 86 20 128/76 (93) 96 10/04/18 18:32 96.3 Intake and Output 10/04/18 10/05/18 19:00 07:00 Intake Total 2280 ml 1580 ml Output Total 1800 ml 2425 ml Balance 480 ml -845 ml Intake Oral 1080 ml 480 ml IV Total 1200 ml 1100 ml Output Urine Total 1800 ml 2425 ml Laboratory Tests 10/05/18 09:40: White Blood Count 8.6, Red Blood Count 4.79, Hemoglobin 14.2, Hematocrit 40.3L, Mean Corpuscular Volume 84, Mean Corpuscular Hemoglobin 29.7, Mean Corpuscular Hemoglobin Concent 35.3, Red Cell Distribution Width 12.0, Platelet Count 147L, Mean Platelet Volume 8.3, Neutrophils (%) (Auto) 51.5, Lymphocytes (%) (Auto) 37.7, Monocytes (%) (Auto) 7.9, Eosinophils (%) (Auto) 2.1, Basophils (%) (Auto ) 0.9, Sodium Level 134L, Potassium Level 3.8, Chloride Level 101, Carbon Dioxide Level 26, Anion Gap 7, Blood Urea Nitrogen 12, Creatinine 0.9, Estimat Glomerular Filtration Rate > 60, Glucose Level 365#H, Hemoglobin A1c 9.9H, Uric Acid 7.1, Calcium Level 8.3L, Phosphorus Level 2.5, Magnesium Level 1.5L, Total Bilirubin 0.3, Aspartate Amino Transf (AST/SGOT) 18, Alanine Aminotransferase ( ALT/SGPT) 38, Alkaline Phosphatase 57, C-Reactive Protein, Quantitative 0.5, Total Protein 6.2L, Albumin 3.0L, Globulin 3.2, Albumin/Globulin Ratio 0.9L, Triglycerides Level 335H, Cholesterol Level 100, LDL Cholesterol 57, HDL Cholesterol 28L, Cholesterol/HDL Ratio 3.6, Vitamin B12 Level 638, Folate 16.8, Thyroid Stimulating Hormone (TSH) 3.081 Height (Feet): 5 Height (Inches): 11.00 Weight (Pounds): 235 General Appearance: no apparent distress, alert EENT: PERRL/EOMI, normal ENT inspection Neck: normal alignment, supple Cardiovascular: normal rate, regular rhythm Respiratory/Chest: lungs clear, normal breath sounds Abdomen: non tender, soft Extremities: non-tender Edema: trace edema Neurologic: alert, responsive Skin: warm/dry Joao Munoz Oct 05, 2018 17:10
--- NOTE | 2018-10-05 18:00 | Progress Note ---
DATE: 10/05/2018 SUBJECTIVE: The patient is a 38-year-old male patient with hypoglycemia. He is confused and disorganized. Mood labile. He has got no logical plan for his own self-care. Still it looks like he is in lot of depression, anxiety, mood lability. That is why attending has requested daily psychiatric consultation. As far as his symptoms, the patient has an increased mood lability worsened by his hypoglycemic confusion, disorganized thought process. MENTAL STATUS EXAMINATION: The patient is a 38-year-old male. Appearance is disheveled. Attitude, irritable and agitated. Affect guarded and restricted. Intellect poor. Mood depressed and anxious. Motor activity, psychomotor agitation. Attention span is poor. Orientation x2. Speech is pressured. Thought process, disorganized and illogical. Thought content, auditory hallucinations and paranoid delusions. Insight and judgment is poor. DIAGNOSIS: Schizoaffective, bipolar type. PLAN: Treat this patient with a combination of Seroquel and Depakote. Provided him with 20 minutes of supportive psychotherapy as well as cognitive . He is very confused and disorganized, mood labile, racing thoughts, but continues Depakote and Seroquel along with 20 minutes of cognitive behavior therapy to help him identify his automatic negative thoughts and help him to convert his negative thoughts to more positive thinking to reduce depression, anxiety, and suicidality. Chart reviewed. Discussed with staff. Seen and assessed at bedside. Charmaine Victor M.D. DR: Shania JOB#: [id number] CC:
[2018-10-05 20:00] VITALS: BP 124/73
[2018-10-05] MEDS: QUEtiapine 200mg tab ORAL SCH (20:27)
[2018-10-06] VITALS: BP 118/68
[2018-10-06] MEDS: Morphine Sulfate 2mg/ml Inj IVP PRN ×4 (00:43→18:45)
--- NOTE | 2018-10-06 02:15 | Consultation ---
DATE OF CONSULTATION: 10/04/2018 NOTE: POOR AUDIO PSYCHOTHERAPY CONSULTATION PROGRESS NOTE CONSULTING PHYSICIAN: Juan Chinchilla PsyD. TREATING ATTENDING PHYSICIAN: Aniceto Sepulveda D.O. HISTORY OF PRESENT ILLNESS: The patient is a 38-year-old male patient from [facility]. The patient presents to the hospital for hyperglycemia. He has had labile mood. He has been disoriented for this reason, he was referred for psychotherapeutic services. This clinician assessed this patient. The patient states that he has been feeling depressed. He states that he is depressed. in the hospital. The patient has been very restless, helpless, hopeless, and anxious. This clinician assessed this patient. The patient denies suicidal or homicidal thoughts of ideation. The patient denies any auditory or visual hallucinations. He states he continues to remain anxious his current medical condition. PAST MEDICAL HISTORY: Includes a history of diabetes, hypertension, lower back pain, COPD, CVA, and seizures. ALLERGIES: The patient is allergic to Haldol. SUBSTANCE ABUSE HISTORY: The patient denies history of alcohol use or illicit substance use. The patient has history of smoking cigarettes. PSYCHIATRIC HISTORY: The patient has a history of schizoaffective disorder . SOCIAL HISTORY: The patient is a 38-year-old male, lives in [facility]. Financially sustained through [facility]. MENTAL STATUS EXAMINATION: The patient is alert and oriented to person and place. Mood is anxious. Affect labile. Thought process, disorganized. Poor attention and concentration. The patient poor insight, judgment, and impulse control. DIAGNOSES: 1. Schizoaffective disorder, bipolar type. 2. History of diabetes, hypertension, low back pain, depression, COPD, CVA, and seizures. 3. Psychosocial stressors, moderate. PLAN: This clinician assessed this patient and assessed the patient's mental status. Provide the patient with supportive psychotherapy cognitive behavioral therapy positive coping skills continue with behavioral management. This clinician has reviewed the patient's chart and discussed the treatment with treatment team. minutes. Juan Chinchilla PsyD. DR: Vitor JOB#: [id number] CC:
[2018-10-06 04:00] VITALS: BP 131/77
[2018-10-06] MEDS: NovoLOG Insulin Flexpen SUBQ SCH ×7 (06:43→21:10)
[2018-10-06 08:00] VITALS: BP 130/75
[2018-10-06] MEDS: Depakote 500mg tab ORAL SCH ×2 (08:53→21:05)
[2018-10-06] MEDS: Heparin 5000 units/ml inj SUBQ SCH ×2 (08:53→21:00)
[2018-10-06] MEDS: Levemir Flexpen SUBQ SCH (08:54)
[2018-10-06 09:15] LABS: ALANINE AMINOTRANSFERASE 36 U/L (12-78); ALBUMIN 3.1 G/DL (3.4-5.0); ALBUMIN/GLOBULIN RATIO 0.8 (1.0-2.7); ALKALINE PHOSPHATASE 58 U/L (46-116); ANION GAP 9 mmol/L (5-15); ASPARTATE AMINO TRANSFERASE 19 U/L (15-37); BILIRUBIN,TOTAL 0.3 MG/DL (0.2-1.0); BLOOD UREA NITROGEN 14 mg/dL (7-18); CALCIUM 8.3 MG/DL (8.5-10.1); CARBON DIOXIDE 23 MMOL/L (21-32); CHLORIDE 101 MMOL/L (98-107); CREATININE 0.9 MG/DL (0.55-1.30); PHOSPHORUS 2.9 MG/DL (2.5-4.9); POTASSIUM 3.9 MMOL/L (3.5-5.1); SODIUM 133 MMOL/L (136-145)
[2018-10-06 09:19] LABS: BASOPHILS % (AUTO) 0.7 % (0.0-2.0); EOSINOPHILS % (AUTO) 1.7 % (0.0-3.0); HEMATOCRIT 39.7 % (42.0-52.0); MEAN CORPUSCULAR VOLUME 84 FL (80-99); MONOCYTES % (AUTO) 7.5 % (1.0-10.0); PLATELET COUNT 149 K/UL (150-450); RED CELL DISTRIBUTION WIDTH 11.8 % (11.6-14.8); WHITE BLOOD COUNT 8.1 K/UL (4.8-10.8)
--- NOTE | 2018-10-06 11:49 | General Progress Note ---
Assessment/Plan Problem List: (1) COPD (chronic obstructive pulmonary disease) ICD Codes: J44.9 - Chronic obstructive pulmonary disease, unspecified SNOMED: 28997283 (2) Uncontrolled seizures ICD Codes: R56.9 - Unspecified convulsions SNOMED: 42274704 (3) Noncompliance ICD Codes: Z91.19 - Patient's noncompliance with other medical treatment and regimen SNOMED: 6704974 Assessment/Plan increase Levemir to 32 units daily increase Novolog to 12 units ac tid continue NISS ac / hs Subjective Allergies: Coded Allergies: HALOPERIDOL (Verified Allergy, Unknown, 07/30/18) All Systems: reviewed and negative except above Subjective events noted Objective Last 24 Hour Vital Signs Date Time Temp Pulse Resp B/P (MAP) Pulse Ox O2 Delivery O2 Flow Rate FiO2 10/06/18 09:00 Room Air 10/06/18 08:00 98.6 82 19 130/75 (93) 96 10/06/18 04:00 98.2 79 19 131/77 (95) 96 10/06/18 00:00 98.2 84 18 118/68 (85) 97 10/05/18 21:00 Room Air 10/05/18 20:20 92 20 Room Air 10/05/18 20:00 98.0 86 20 124/73 (90) 96 10/05/18 16:00 98.1 94 18 136/78 (97) 96 10/05/18 12:00 98.1 90 18 129/76 (93) 96 Intake and Output 10/05/18 10/06/18 19:00 07:00 Intake Total 3300 ml 1980 ml Output Total 4100 ml Balance -800 ml 1980 ml Intake Oral 2200 ml 780 ml IV Total 1100 ml 1200 ml Output Urine Total 4100 ml # Voids 3 Laboratory Tests 10/06/18 08:35: White Blood Count 8.1, Red Blood Count 4.70, Hemoglobin 14.0L, Hematocrit 39.7L , Mean Corpuscular Volume 84, Mean Corpuscular Hemoglobin 29.8, Mean Corpuscular Hemoglobin Concent 35.3, Red Cell Distribution Width 11.8, Platelet Count 149L, Mean Platelet Volume 8.8, Neutrophils (%) (Auto) 57.0, Lymphocytes ( %) (Auto) 33.0, Monocytes (%) (Auto) 7.5, Eosinophils (%) (Auto) 1.7, Basophils (%) (Auto) 0.7, Sodium Level 133L, Potassium Level 3.9, Chloride Level 101, Carbon Dioxide Level 23, Anion Gap 9, Blood Urea Nitrogen 14, Creatinine 0.9, Estimat Glomerular Filtration Rate > 60, Glucose Level 412H, Calcium Level 8.3L , Phosphorus Level 2.9, Magnesium Level 1.5L, Total Bilirubin 0.3, Aspartate Amino Transf (AST/SGOT) 19, Alanine Aminotransferase (ALT/SGPT) 36, Alkaline Phosphatase 58, Total Protein 6.8, Albumin 3.1L, Globulin 3.7, Albumin/Globulin Ratio 0.8L Height (Feet): 5 Height (Inches): 11.00 Weight (Pounds): 279 General Appearance: no apparent distress Neck: normal alignment Cardiovascular: normal rate Respiratory/Chest: normal breath sounds Abdomen: normal bowel sounds Objective Current Medications Medications (Trade) Dose Ordered Sig/Sofia Route PRN Reason Start Time Stop Time Status Last Admin Dose Admin Acetaminophen (Tylenol) 650 mg Q4H PRN ORAL fever 10/04/18 07:00 11/03/18 06:59 Acetaminophen/ Hydrocodone Bitart ([place] 10) 1 tab Q4H PRN ORAL Severe Pain (Pain Scale 7-10) 10/05/18 17:15 10/12/18 17:14 Albuterol/ Ipratropium (Albuterol/ Ipratropium) 3 ml Q4H PRN HHN Shortness of Breath 10/04/18 07:00 10/09/18 06:59 Alprazolam (Xanax) 0.5 mg Q6H PRN ORAL For Anxiety 10/04/18 05:15 10/11/18 05:14 Clonidine HCl (Catapres Tab) 0.1 mg Q4H PRN ORAL SBP more than 160mmHg 10/04/18 07:00 11/03/18 06:59 Dextrose (Dextrose 50%) 25 ml Q30M PRN IV Hypoglycemia 10/05/18 09:45 11/04/18 09:44 Dextrose (Dextrose 50%) 50 ml Q30M PRN IV Hypoglycemia 10/05/18 09:45 11/04/18 09:44 Divalproex Sodium (Depakote) 1,000 mg EVERY 12 HOURS ORAL 10/04/18 09:00 11/03/18 08:59 10/06/18 08:53 Escitalopram Oxalate (Lexapro) 10 mg DAILY ORAL 10/04/18 09:00 11/03/18 08:59 10/06/18 08:53 Heparin Sodium (Porcine) (Heparin 5000 units/ml) 5,000 units EVERY 12 HOURS SUBQ 10/04/18 09:00 11/03/18 08:59 Insulin Aspart (NovoLOG) BEFORE MEALS AND HS SUBQ 10/04/18 11:30 11/03/18 11:29 10/06/18 06:43 Insulin Aspart (NovoLOG) 8 units NOVOTIAC SUBQ 10/05/18 11:50 11/04/18 11:49 10/06/18 06:44 Insulin Detemir (Levemir) 24 units DAILY SUBQ 10/05/18 11:00 11/04/18 10:59 10/06/18 08:54 Morphine Sulfate (Morphine Sulfate) 1 mg Q6H PRN IVP breakthrough severe pain 10/05/18 17:30 10/12/18 17:29 10/06/18 06:45 Nitroglycerin (Ntg) 0.4 mg Q5M X 3 DOSES PRN SL Prn Chest Pain 10/04/18 07:00 11/03/18 06:59 Ondansetron HCl (Zofran) 4 mg Q6H PRN IVP Nausea & Vomiting 10/04/18 07:00 11/03/18 06:59 Pantoprazole (Protonix) 40 mg EVERY 12 HOURS ORAL 10/04/18 21:00 11/03/18 20:59 10/06/18 08:53 Polyethylene Glycol (Miralax) 17 gm HSPRN PRN ORAL Constipation 10/04/18 07:00 11/03/18 06:59 Quetiapine Fumarate (SEROquel) 200 mg QHS ORAL 10/04/18 21:00 11/03/18 20:59 10/05/18 20:27 Sodium Chloride 1,000 ml @ 100 mls/hr Q10H IVLG 10/04/18 07:00 11/03/18 06:59 10/06/18 08:53 Temazepam (Restoril) 15 mg HSPRN PRN ORAL Insomnia 10/04/18 21:00 10/11/18 20:59 Item Value Date Time Bedside Blood Glucose 298 mg/dl H 10/06/18 1130 Bedside Blood Glucose 381 mg/dl H 10/06/18 0854 Bedside Blood Glucose 253 mg/dl H 10/06/18 0644 Bedside Blood Glucose 308 mg/dl H 10/05/18 2100 Bedside Blood Glucose 344 mg/dl H 10/05/18 1710 Bedside Blood Glucose 299 mg/dl H 10/05/18 1206 Bedside Blood Glucose 353 mg/dl H 10/05/18 1039 Tavo Malhotra MD Oct 06, 2018 11:49
[2018-10-06 12:00] VITALS: BP 144/88
--- NOTE | 2018-10-06 12:24 | General Progress Note ---
Assessment/Plan Problem List: (1) Renal insufficiency ICD Codes: N28.9 - Disorder of kidney and ureter, unspecified SNOMED: 068600079, 128850928 (2) Depressed ICD Codes: F32.9 - Major depressive disorder, single episode, unspecified SNOMED: 43843474 (3) Seizure ICD Codes: R56.9 - Unspecified convulsions SNOMED: 79027956 (4) Hyperglycemia due to type 2 diabetes mellitus ICD Codes: E11.65 - Type 2 diabetes mellitus with hyperglycemia SNOMED: 461609588237016 (5) Diabetes mellitus ICD Codes: E11.9 - Diabetes mellitus SNOMED: 30395486 (6) COPD (chronic obstructive pulmonary disease) ICD Codes: J44.9 - Chronic obstructive pulmonary disease, unspecified SNOMED: 84972268 (7) CVA (cerebral vascular accident) ICD Codes: I63.9 - Cerebral infarction, unspecified SNOMED: 968095215 Status: stable, progressing Assessment/Plan ot pt diet bs bp pain control cbc bmp am dc plan if clear Subjective Constitutional: Reports: weakness Allergies: Coded Allergies: HALOPERIDOL (Verified Allergy, Unknown, 07/30/18) All Systems: reviewed and negative except above Subjective sl back pain Objective Last 24 Hour Vital Signs Date Time Temp Pulse Resp B/P (MAP) Pulse Ox O2 Delivery O2 Flow Rate FiO2 10/06/18 09:00 Room Air 10/06/18 08:00 98.6 82 19 130/75 (93) 96 10/06/18 04:00 98.2 79 19 131/77 (95) 96 10/06/18 00:00 98.2 84 18 118/68 (85) 97 10/05/18 21:00 Room Air 10/05/18 20:20 92 20 Room Air 10/05/18 20:00 98.0 86 20 124/73 (90) 96 10/05/18 16:00 98.1 94 18 136/78 (97) 96 Intake and Output 10/05/18 10/06/18 19:00 07:00 Intake Total 3300 ml 1980 ml Output Total 4100 ml Balance -800 ml 1980 ml Intake Oral 2200 ml 780 ml IV Total 1100 ml 1200 ml Output Urine Total 4100 ml # Voids 3 Laboratory Tests 10/06/18 08:35: White Blood Count 8.1, Red Blood Count 4.70, Hemoglobin 14.0L, Hematocrit 39.7L , Mean Corpuscular Volume 84, Mean Corpuscular Hemoglobin 29.8, Mean Corpuscular Hemoglobin Concent 35.3, Red Cell Distribution Width 11.8, Platelet Count 149L, Mean Platelet Volume 8.8, Neutrophils (%) (Auto) 57.0, Lymphocytes ( %) (Auto) 33.0, Monocytes (%) (Auto) 7.5, Eosinophils (%) (Auto) 1.7, Basophils (%) (Auto) 0.7, Sodium Level 133L, Potassium Level 3.9, Chloride Level 101, Carbon Dioxide Level 23, Anion Gap 9, Blood Urea Nitrogen 14, Creatinine 0.9, Estimat Glomerular Filtration Rate > 60, Glucose Level 412H, Calcium Level 8.3L , Phosphorus Level 2.9, Magnesium Level 1.5L, Total Bilirubin 0.3, Aspartate Amino Transf (AST/SGOT) 19, Alanine Aminotransferase (ALT/SGPT) 36, Alkaline Phosphatase 58, Total Protein 6.8, Albumin 3.1L, Globulin 3.7, Albumin/Globulin Ratio 0.8L Height (Feet): 5 Height (Inches): 11.00 Weight (Pounds): 279 General Appearance: alert EENT: normal ENT inspection Neck: normal alignment Cardiovascular: normal peripheral pulses, normal rate, regular rhythm Respiratory/Chest: chest wall non-tender, lungs clear, normal breath sounds Abdomen: normal bowel sounds, non tender, soft Extremities: normal inspection Edema: no edema noted Arm (L), no edema noted Arm (R), no edema noted Leg (L), no edema noted Leg (R), no edema noted Pedal (L), no edema noted Pedal (R), no edema noted Generalized Neurologic: responsive, motor weakness Skin: normal pigmentation, warm/dry Aniceto Sepulveda DO Oct 06, 2018 12:24
--- NOTE | 2018-10-06 13:11 | Pulmonology Progress Note ---
Assessment/Plan Problems: (1) Hyperglycemia due to type 2 diabetes mellitus (2) COPD (chronic obstructive pulmonary disease) (3) Peripheral neuropathy (4) Lumbar degenerative disc disease (5) CVA (cerebral vascular accident) (6) Psychosomatic disorder (7) Noncompliance (8) Diabetes mellitus Assessment/Plan pain better controlled sliding scale diabetic diet respiratory treatment sliding scale dvt prophylaxis pt/ot Subjective ROS Limited/Unobtainable: No Constitutional: Reports: no symptoms HEENT: Repors: no symptoms Respiratory: Reports: no symptoms Allergies: Coded Allergies: HALOPERIDOL (Verified Allergy, Unknown, 07/30/18) Objective Last 24 Hour Vital Signs Date Time Temp Pulse Resp B/P (MAP) Pulse Ox O2 Delivery O2 Flow Rate FiO2 10/06/18 09:00 Room Air 10/06/18 08:00 98.6 82 19 130/75 (93) 96 10/06/18 04:00 98.2 79 19 131/77 (95) 96 10/06/18 00:00 98.2 84 18 118/68 (85) 97 10/05/18 21:00 Room Air 10/05/18 20:20 92 20 Room Air 10/05/18 20:00 98.0 86 20 124/73 (90) 96 10/05/18 16:00 98.1 94 18 136/78 (97) 96 Intake and Output 10/05/18 10/06/18 19:00 07:00 Intake Total 3300 ml 1980 ml Output Total 4100 ml Balance -800 ml 1980 ml Intake Oral 2200 ml 780 ml IV Total 1100 ml 1200 ml Output Urine Total 4100 ml # Voids 3 Objective General Appearance: WD/WN HEENT: normocephalic Respiratory/Chest: chest wall non-tender, lungs clear, normal breath sounds Cardiovascular: normal peripheral pulses, normal rate Abdomen: normal bowel sounds, soft, non tender Genitourinary: normal external genitalia Extremities: no clubbing Skin: no rash Microbiology Date/Time Source Procedure Growth Status 10/04/18 04:30 Nose MRSA Culture - Final Staphylococcus Aureus - Mrsa Complete Laboratory Tests 10/06/18 08:35: White Blood Count 8.1, Red Blood Count 4.70, Hemoglobin 14.0L, Hematocrit 39.7L , Mean Corpuscular Volume 84, Mean Corpuscular Hemoglobin 29.8, Mean Corpuscular Hemoglobin Concent 35.3, Red Cell Distribution Width 11.8, Platelet Count 149L, Mean Platelet Volume 8.8, Neutrophils (%) (Auto) 57.0, Lymphocytes ( %) (Auto) 33.0, Monocytes (%) (Auto) 7.5, Eosinophils (%) (Auto) 1.7, Basophils (%) (Auto) 0.7, Sodium Level 133L, Potassium Level 3.9, Chloride Level 101, Carbon Dioxide Level 23, Anion Gap 9, Blood Urea Nitrogen 14, Creatinine 0.9, Estimat Glomerular Filtration Rate > 60, Glucose Level 412H, Calcium Level 8.3L , Phosphorus Level 2.9, Magnesium Level 1.5L, Total Bilirubin 0.3, Aspartate Amino Transf (AST/SGOT) 19, Alanine Aminotransferase (ALT/SGPT) 36, Alkaline Phosphatase 58, Total Protein 6.8, Albumin 3.1L, Globulin 3.7, Albumin/Globulin Ratio 0.8L Current Medications Medications (Trade) Dose Ordered Sig/Sofia Route PRN Reason Start Time Stop Time Status Last Admin Dose Admin Acetaminophen (Tylenol) 650 mg Q4H PRN ORAL fever 10/04/18 07:00 11/03/18 06:59 Acetaminophen/ Hydrocodone Bitart ([place] ) 1 tab Q4H PRN ORAL Severe Pain (Pain Scale 7-10) 10/05/18 17:15 10/12/18 17:14 Albuterol/ Ipratropium (Albuterol/ Ipratropium) 3 ml Q4H PRN HHN Shortness of Breath 10/04/18 07:00 10/09/18 06:59 Alprazolam (Xanax) 0.5 mg Q6H PRN ORAL For Anxiety 10/04/18 05:15 10/11/18 05:14 Clonidine HCl (Catapres Tab) 0.1 mg Q4H PRN ORAL SBP more than 160mmHg 10/04/18 07:00 11/03/18 06:59 Dextrose (Dextrose 50%) 25 ml Q30M PRN IV Hypoglycemia 10/05/18 09:45 11/04/18 09:44 Dextrose (Dextrose 50%) 50 ml Q30M PRN IV Hypoglycemia 10/05/18 09:45 11/04/18 09:44 Divalproex Sodium (Depakote) 1,000 mg EVERY 12 HOURS ORAL 10/04/18 09:00 11/03/18 08:59 10/06/18 08:53 Escitalopram Oxalate (Lexapro) 10 mg DAILY ORAL 10/04/18 09:00 11/03/18 08:59 10/06/18 08:53 Heparin Sodium (Porcine) (Heparin 5000 units/ml) 5,000 units EVERY 12 HOURS SUBQ 10/04/18 09:00 11/03/18 08:59 Insulin Aspart (NovoLOG) BEFORE MEALS AND HS SUBQ 10/04/18 11:30 11/03/18 11:29 10/06/18 11:55 Insulin Aspart (NovoLOG) 12 units NOVOTIAC SUBQ 10/06/18 11:50 11/04/18 11:49 10/06/18 12:13 Insulin Detemir (Levemir) 32 units DAILY SUBQ 10/07/18 09:00 11/04/18 10:59 Morphine Sulfate (Morphine Sulfate) 1 mg Q6H PRN IVP breakthrough severe pain 10/05/18 17:30 10/12/18 17:29 10/06/18 12:55 Nitroglycerin (Ntg) 0.4 mg Q5M X 3 DOSES PRN SL Prn Chest Pain 10/04/18 07:00 11/03/18 06:59 Ondansetron HCl (Zofran) 4 mg Q6H PRN IVP Nausea & Vomiting 10/04/18 07:00 11/03/18 06:59 Pantoprazole (Protonix) 40 mg EVERY 12 HOURS ORAL 10/04/18 21:00 11/03/18 20:59 10/06/18 08:53 Polyethylene Glycol (Miralax) 17 gm HSPRN PRN ORAL Constipation 10/04/18 07:00 11/03/18 06:59 Quetiapine Fumarate (SEROquel) 200 mg QHS ORAL 10/04/18 21:00 11/03/18 20:59 10/05/18 20:27 Sodium Chloride 1,000 ml @ 100 mls/hr Q10H IVLG 10/04/18 07:00 11/03/18 06:59 10/06/18 08:53 Temazepam (Restoril) 15 mg HSPRN PRN ORAL Insomnia 10/04/18 21:00 10/11/18 20:59 Lashanda Pham MD Oct 06, 2018 13:11
--- NOTE | 2018-10-06 14:00 | Nephrology Progress Note ---
Assessment/Plan Problem List: (1) Hyperglycemia due to type 2 diabetes mellitus (2) Hyponatremia (3) COPD exacerbation Assessment Hyperglycemia due to type 2 diabetes mellitus Hyponatremia due to high blood sugar COPD (chronic obstructive pulmonary disease Peripheral neuropathy Lumbar degenerative disc disease CVA (cerebral vascular accident) Psychosomatic disorder Noncompliance Hydrocephalus Plan Hydrate- BS control monitor electroltes per orders Subjective ROS Limited/Unobtainable: No Constitutional: Reports: malaise Objective Objective Last 24 Hour Vital Signs Date Time Temp Pulse Resp B/P (MAP) Pulse Ox O2 Delivery O2 Flow Rate FiO2 10/06/18 12:00 98.6 85 20 144/88 (106) 96 10/06/18 09:00 Room Air 10/06/18 08:00 98.6 82 19 130/75 (93) 96 10/06/18 04:00 98.2 79 19 131/77 (95) 96 10/06/18 00:00 98.2 84 18 118/68 (85) 97 10/05/18 21:00 Room Air 10/05/18 20:20 92 20 Room Air 10/05/18 20:00 98.0 86 20 124/73 (90) 96 10/05/18 16:00 98.1 94 18 136/78 (97) 96 Intake and Output 10/05/18 10/06/18 19:00 07:00 Intake Total 3300 ml 1980 ml Output Total 4100 ml Balance -800 ml 1980 ml Intake Oral 2200 ml 780 ml IV Total 1100 ml 1200 ml Output Urine Total 4100 ml # Voids 3 Laboratory Tests 10/06/18 08:35: White Blood Count 8.1, Red Blood Count 4.70, Hemoglobin 14.0L, Hematocrit 39.7L , Mean Corpuscular Volume 84, Mean Corpuscular Hemoglobin 29.8, Mean Corpuscular Hemoglobin Concent 35.3, Red Cell Distribution Width 11.8, Platelet Count 149L, Mean Platelet Volume 8.8, Neutrophils (%) (Auto) 57.0, Lymphocytes ( %) (Auto) 33.0, Monocytes (%) (Auto) 7.5, Eosinophils (%) (Auto) 1.7, Basophils (%) (Auto) 0.7, Sodium Level 133L, Potassium Level 3.9, Chloride Level 101, Carbon Dioxide Level 23, Anion Gap 9, Blood Urea Nitrogen 14, Creatinine 0.9, Estimat Glomerular Filtration Rate > 60, Glucose Level 412H, Calcium Level 8.3L , Phosphorus Level 2.9, Magnesium Level 1.5L, Total Bilirubin 0.3, Aspartate Amino Transf (AST/SGOT) 19, Alanine Aminotransferase (ALT/SGPT) 36, Alkaline Phosphatase 58, Total Protein 6.8, Albumin 3.1L, Globulin 3.7, Albumin/Globulin Ratio 0.8L Height (Feet): 5 Height (Inches): 11.00 Weight (Pounds): 279 General Appearance: no apparent distress Objective no change Sai Merino MD Oct 06, 2018 14:00
[2018-10-06] MEDS: HYDROcodone/Acetamin 10/325 tab ORAL PRN (15:50)
[2018-10-06 16:00] VITALS: BP 131/77
--- NOTE | 2018-10-06 18:24 | General Progress Note ---
Assessment/Plan Assessment/Plan (1) Chiari malformation type II (2) Degenerative disc disease, cervical (3) Lumbar degenerative disc disease (4) Arthritis, lumbar spine (5) Peripheral neuropathy (6) Hydrocephalus (7) Diabetes mellitus Pt will be continued on the Morphine and [place]. Pt was d/w Dr. Napier and he concurred. Subjective Date patient seen: Oct 06, 2018 Time patient seen: 05:45 - pm Allergies: Coded Allergies: HALOPERIDOL (Verified Allergy, Unknown, 07/30/18) Subjective Constitutional: Reports: weakness, Denies: chills, diaphoresis, fever, malaise , no symptoms, other HEENT: Denies: blurred vision, double vision, ear discharge, ear pain, eye pain , mouth pain, mouth swelling, no symptoms, nose congestion, nose pain, other, tearing, throat pain, throat swelling Cardiovascular: Denies: chest pain, edema, irregular heart rate, lightheadedness, no symptoms, other, palpitations, syncope Respiratory: Denies: SOB at rest, SOB with excertion, cough, no symptoms, orthopnea, other, shortness of breath, sputum, stridor, wheezing Gastrointestinal/Abdominal: Denies: abdomen distended, abdominal pain, black stools, blood in stool, constipated, diarrhea, difficulty swallowing, nausea, no symptoms, other, poor appetite, poor fluid intake, rectal bleeding, tarry stools, vomiting Genitourinary: Denies: burning, discharge, flank pain, frequency, hematuria, incontinence, no symptoms, other, pain, urgency Neurologic/Psychiatric: Reports: headache, numbness, tingling, weakness, Denies : anxiety, depressed, emotional problems, no symptoms, other, paresthesia, pre- existing deficit, seizure, tremors Endocrine: Denies: excessive sweating, flushing, increased hunger, increased thirst, increased urine, intolerance to cold, intolerance to heat, no symptoms, other, unexplained weight gain, unexplained weight loss Hematologic/Lymphatic: Denies: anemia, easy bleeding, easy bruising, no symptoms, other Subjective Patient is comfortable in bed no signs of pain or distress. Pain has been stable on the Morphine and [place]. Objective Last 24 Hour Vital Signs Date Time Temp Pulse Resp B/P (MAP) Pulse Ox O2 Delivery O2 Flow Rate FiO2 10/06/18 16:00 98.9 77 22 131/77 (95) 96 10/06/18 12:00 98.6 85 20 144/88 (106) 96 10/06/18 09:41 88 20 Room Air 10/06/18 09:00 Room Air 10/06/18 08:00 98.6 82 19 130/75 (93) 96 10/06/18 04:00 98.2 79 19 131/77 (95) 96 10/06/18 00:00 98.2 84 18 118/68 (85) 97 10/05/18 21:00 Room Air 10/05/18 20:20 92 20 Room Air 10/05/18 20:00 98.0 86 20 124/73 (90) 96 Intake and Output 10/05/18 10/06/18 19:00 07:00 Intake Total 3300 ml 2080 ml Output Total 4100 ml Balance -800 ml 2080 ml Intake Oral 2200 ml 780 ml IV Total 1100 ml 1300 ml Output Urine Total 4100 ml # Voids 3 Laboratory Tests 10/06/18 08:35: White Blood Count 8.1, Red Blood Count 4.70, Hemoglobin 14.0L, Hematocrit 39.7L , Mean Corpuscular Volume 84, Mean Corpuscular Hemoglobin 29.8, Mean Corpuscular Hemoglobin Concent 35.3, Red Cell Distribution Width 11.8, Platelet Count 149L, Mean Platelet Volume 8.8, Neutrophils (%) (Auto) 57.0, Lymphocytes ( %) (Auto) 33.0, Monocytes (%) (Auto) 7.5, Eosinophils (%) (Auto) 1.7, Basophils (%) (Auto) 0.7, Sodium Level 133L, Potassium Level 3.9, Chloride Level 101, Carbon Dioxide Level 23, Anion Gap 9, Blood Urea Nitrogen 14, Creatinine 0.9, Estimat Glomerular Filtration Rate > 60, Glucose Level 412H, Calcium Level 8.3L , Phosphorus Level 2.9, Magnesium Level 1.5L, Total Bilirubin 0.3, Aspartate Amino Transf (AST/SGOT) 19, Alanine Aminotransferase (ALT/SGPT) 36, Alkaline Phosphatase 58, Total Protein 6.8, Albumin 3.1L, Globulin 3.7, Albumin/Globulin Ratio 0.8L Height (Feet): 5 Height (Inches): 11.00 Weight (Pounds): 279 Zedner,Joao N. PA Oct 06, 2018 18:24
[2018-10-06 20:00] VITALS: BP 135/79
--- NOTE | 2018-10-06 20:15 | Progress Note ---
DATE: 10/06/2018 SUBJECTIVE: The patient is a 38-year-old male patient with hypoglycemia. This patient continues to have some mood lability, worsened by stress of his medical illness and also has multiple instances of decline in cognition below his baseline and that is why his attending is requesting daily psychiatric consultation for this patient. MENTAL STATUS EXAMINATION: This is a 38-year-old. Appearance is disheveled. Attitude, irritable and agitated. Affect guarded and restricted. Intellect poor. Mood depressed and anxious. Motor activity, psychomotor agitation. Attention is poor. Orientation x2. Speech is pressured. Thought process, disorganized and illogical. Thought content, auditory hallucinations and paranoid delusions. Insight and judgment is poor. DIAGNOSIS: Schizoaffective, bipolar type. PLAN: Treat him with Seroquel at a dose of 200 mg p.o. at bedtime and Depakote at a dose of 1000 mg q.12 h. and Lexapro 10 mg daily. Provided him with 20 minutes of cognitive behavioral therapy. Provided with to help him identify his automatic negative thoughts and help him to convert his negative thoughts to more positive thoughts to reduce depression, anxiety, and suicidality and also to help him have . Chart reviewed. Discussed with staff. Seen and assessed at bedside. Charmaine Victor M.D. DR: SHELIA JOB#: [id number] CC:
[2018-10-06] MEDS: QUEtiapine 200mg tab ORAL SCH (21:04)
[2018-10-07] VITALS: BP 129/72
[2018-10-07] MEDS: Morphine Sulfate 2mg/ml Inj IVP PRN ×4 (00:42→19:21)
[2018-10-07 04:00] VITALS: BP 120/75
[2018-10-07] MEDS: NovoLOG Insulin Flexpen SUBQ SCH ×7 (06:40→21:36)
--- NOTE | 2018-10-07 07:11 | General Progress Note ---
Assessment/Plan Problem List: (1) COPD (chronic obstructive pulmonary disease) ICD Codes: J44.9 - Chronic obstructive pulmonary disease, unspecified SNOMED: 28075146 (2) Uncontrolled seizures ICD Codes: R56.9 - Unspecified convulsions SNOMED: 21219076 (3) Noncompliance ICD Codes: Z91.19 - Patient's noncompliance with other medical treatment and regimen SNOMED: 1954899 Assessment/Plan increase Levemir to 40 units daily increase Novolog to 15 units ac tid continue NISS ac / hs Subjective Allergies: Coded Allergies: HALOPERIDOL (Verified Allergy, Unknown, 07/30/18) All Systems: reviewed and negative except above Subjective events noted - glucose values still elevated Objective Last 24 Hour Vital Signs Date Time Temp Pulse Resp B/P (MAP) Pulse Ox O2 Delivery O2 Flow Rate FiO2 10/07/18 04:00 98.0 81 18 120/75 (90) 96 10/07/18 00:00 98.3 75 19 129/72 (91) 96 10/06/18 21:00 Room Air 10/06/18 20:15 72 20 Room Air 21 10/06/18 20:00 98.9 80 19 135/79 (97) 98 10/06/18 16:00 98.9 77 22 131/77 (95) 96 10/06/18 12:00 98.6 85 20 144/88 (106) 96 10/06/18 09:41 88 20 Room Air 10/06/18 09:00 Room Air 10/06/18 08:00 98.6 82 19 130/75 (93) 96 Intake and Output 10/06/18 10/07/18 18:59 06:59 Intake Total 2580 ml 1600 ml Balance 2580 ml 1600 ml Intake Oral 1480 ml 600 ml IV Total 1100 ml 1000 ml # Voids 7 5 Laboratory Tests 10/06/18 08:35: White Blood Count 8.1, Red Blood Count 4.70, Hemoglobin 14.0L, Hematocrit 39.7L , Mean Corpuscular Volume 84, Mean Corpuscular Hemoglobin 29.8, Mean Corpuscular Hemoglobin Concent 35.3, Red Cell Distribution Width 11.8, Platelet Count 149L, Mean Platelet Volume 8.8, Neutrophils (%) (Auto) 57.0, Lymphocytes ( %) (Auto) 33.0, Monocytes (%) (Auto) 7.5, Eosinophils (%) (Auto) 1.7, Basophils (%) (Auto) 0.7, Sodium Level 133L, Potassium Level 3.9, Chloride Level 101, Carbon Dioxide Level 23, Anion Gap 9, Blood Urea Nitrogen 14, Creatinine 0.9, Estimat Glomerular Filtration Rate > 60, Glucose Level 412H, Calcium Level 8.3L , Phosphorus Level 2.9, Magnesium Level 1.5L, Total Bilirubin 0.3, Aspartate Amino Transf (AST/SGOT) 19, Alanine Aminotransferase (ALT/SGPT) 36, Alkaline Phosphatase 58, Total Protein 6.8, Albumin 3.1L, Globulin 3.7, Albumin/Globulin Ratio 0.8L Height (Feet): 5 Height (Inches): 11.00 Weight (Pounds): 279 General Appearance: no apparent distress Neck: normal alignment Cardiovascular: normal rate Respiratory/Chest: lungs clear Abdomen: normal bowel sounds Objective Current Medications Medications (Trade) Dose Ordered Sig/Sofia Route PRN Reason Start Time Stop Time Status Last Admin Dose Admin Acetaminophen (Tylenol) 650 mg Q4H PRN ORAL fever 10/04/18 07:00 11/03/18 06:59 Acetaminophen/ Hydrocodone Bitart ([place] 10/325) 1 tab Q4H PRN ORAL Severe Pain (Pain Scale 7-10) 10/05/18 17:15 10/12/18 17:14 10/06/18 15:50 Albuterol/ Ipratropium (Albuterol/ Ipratropium) 3 ml Q4H PRN HHN Shortness of Breath 10/04/18 07:00 10/09/18 06:59 Alprazolam (Xanax) 0.5 mg Q6H PRN ORAL For Anxiety 10/04/18 05:15 10/11/18 05:14 Clonidine HCl (Catapres Tab) 0.1 mg Q4H PRN ORAL SBP more than 160mmHg 10/04/18 07:00 11/03/18 06:59 Dextrose (Dextrose 50%) 25 ml Q30M PRN IV Hypoglycemia 10/05/18 09:45 11/04/18 09:44 Dextrose (Dextrose 50%) 50 ml Q30M PRN IV Hypoglycemia 10/05/18 09:45 11/04/18 09:44 Divalproex Sodium (Depakote) 1,000 mg EVERY 12 HOURS ORAL 10/04/18 09:00 11/03/18 08:59 10/06/18 21:05 Escitalopram Oxalate (Lexapro) 10 mg DAILY ORAL 10/04/18 09:00 11/03/18 08:59 10/06/18 08:53 Heparin Sodium (Porcine) (Heparin 5000 units/ml) 5,000 units EVERY 12 HOURS SUBQ 10/04/18 09:00 11/03/18 08:59 Insulin Aspart (NovoLOG) BEFORE MEALS AND HS SUBQ 10/04/18 11:30 11/03/18 11:29 10/07/18 06:40 Insulin Aspart (NovoLOG) 12 units NOVOTIAC SUBQ 10/06/18 11:50 11/04/18 11:49 10/07/18 06:40 Insulin Detemir (Levemir) 32 units DAILY SUBQ 10/07/18 09:00 11/04/18 10:59 Morphine Sulfate (Morphine Sulfate) 1 mg Q6H PRN IVP breakthrough severe pain 10/05/18 17:30 10/12/18 17:29 10/07/18 06:41 Nitroglycerin (Ntg) 0.4 mg Q5M X 3 DOSES PRN SL Prn Chest Pain 10/04/18 07:00 11/03/18 06:59 Ondansetron HCl (Zofran) 4 mg Q6H PRN IVP Nausea & Vomiting 10/04/18 07:00 11/03/18 06:59 Pantoprazole (Protonix) 40 mg EVERY 12 HOURS ORAL 10/04/18 21:00 11/03/18 20:59 10/06/18 21:04 Polyethylene Glycol (Miralax) 17 gm HSPRN PRN ORAL Constipation 10/04/18 07:00 11/03/18 06:59 Quetiapine Fumarate (SEROquel) 200 mg QHS ORAL 10/04/18 21:00 11/03/18 20:59 10/06/18 21:04 Sodium Chloride 1,000 ml @ 100 mls/hr Q10H IVLG 10/04/18 07:00 11/03/18 06:59 10/06/18 18:53 Temazepam (Restoril) 15 mg HSPRN PRN ORAL Insomnia 10/04/18 21:00 10/11/18 20:59 Item Value Date Time Bedside Blood Glucose 261 mg/dl H 10/07/18 0640 Bedside Blood Glucose 326 mg/dl H 10/06/18 2110 Bedside Blood Glucose 229 mg/dl H 10/06/18 1714 Bedside Blood Glucose 298 mg/dl H 10/06/18 1213 Bedside Blood Glucose 381 mg/dl H 10/06/18 0854 Bedside Blood Glucose 253 mg/dl H 10/06/18 0644 Tavo Malhotra MD Oct 07, 2018 07:11
[2018-10-07 08:00] VITALS: BP 125/76
--- NOTE | 2018-10-07 08:53 | General Progress Note ---
Assessment/Plan Assessment/Plan (1) Chiari malformation type II (2) Degenerative disc disease, cervical (3) Lumbar degenerative disc disease (4) Arthritis, lumbar spine (5) Peripheral neuropathy (6) Hydrocephalus (7) Diabetes mellitus Pt will be continued on the Morphine and [place]. Pt was d/w Dr. Napier and he concurred. Subjective Date patient seen: Oct 07, 2018 Time patient seen: 07:00 - am Allergies: Coded Allergies: HALOPERIDOL (Verified Allergy, Unknown, 07/30/18) Subjective Constitutional: Reports: weakness, Denies: chills, diaphoresis, fever, malaise , no symptoms, other HEENT: Denies: blurred vision, double vision, ear discharge, ear pain, eye pain , mouth pain, mouth swelling, no symptoms, nose congestion, nose pain, other, tearing, throat pain, throat swelling Cardiovascular: Denies: chest pain, edema, irregular heart rate, lightheadedness, no symptoms, other, palpitations, syncope Respiratory: Denies: SOB at rest, SOB with excertion, cough, no symptoms, orthopnea, other, shortness of breath, sputum, stridor, wheezing Gastrointestinal/Abdominal: Denies: abdomen distended, abdominal pain, black stools, blood in stool, constipated, diarrhea, difficulty swallowing, nausea, no symptoms, other, poor appetite, poor fluid intake, rectal bleeding, tarry stools, vomiting Genitourinary: Denies: burning, discharge, flank pain, frequency, hematuria, incontinence, no symptoms, other, pain, urgency Neurologic/Psychiatric: Reports: headache, numbness, tingling, weakness, Denies : anxiety, depressed, emotional problems, no symptoms, other, paresthesia, pre- existing deficit, seizure, tremors Endocrine: Denies: excessive sweating, flushing, increased hunger, increased thirst, increased urine, intolerance to cold, intolerance to heat, no symptoms, other, unexplained weight gain, unexplained weight loss Hematologic/Lymphatic: Denies: anemia, easy bleeding, easy bruising, no symptoms, other Subjective Patient is in bed doing well tolerating the pain on the [place] and Morphine. Has no new complaints at this time. Objective Last 24 Hour Vital Signs Date Time Temp Pulse Resp B/P (MAP) Pulse Ox O2 Delivery O2 Flow Rate FiO2 10/07/18 08:00 97.8 90 20 125/76 (92) 95 10/07/18 04:00 98.0 81 18 120/75 (90) 96 10/07/18 00:00 98.3 75 19 129/72 (91) 96 10/06/18 21:00 Room Air 10/06/18 20:15 72 20 Room Air 21 10/06/18 20:00 98.9 80 19 135/79 (97) 98 10/06/18 16:00 98.9 77 22 131/77 (95) 96 10/06/18 12:00 98.6 85 20 144/88 (106) 96 10/06/18 09:41 88 20 Room Air 10/06/18 09:00 Room Air Intake and Output 10/06/18 10/07/18 19:00 07:00 Intake Total 2480 ml 1600 ml Balance 2480 ml 1600 ml Intake Oral 1480 ml 600 ml IV Total 1000 ml 1000 ml # Voids 7 5 Height (Feet): 5 Height (Inches): 11.00 Weight (Pounds): 279 Joao Munoz Oct 07, 2018 08:53
[2018-10-07] MEDS ORDERED: Levemir Flexpen SUBQ SCH (09:00)
[2018-10-07] MEDS: Heparin 5000 units/ml inj SUBQ SCH ×2 (09:00→21:00)
[2018-10-07] MEDS: Depakote 500mg tab ORAL SCH ×2 (09:10→21:32)
[2018-10-07] MEDS: Levemir Flexpen SUBQ SCH (09:13)
[2018-10-07] MEDS: HYDROcodone/Acetamin 10/325 tab ORAL PRN ×2 (09:28→17:19)
[2018-10-07 09:45] LABS: BASOPHILS % (AUTO) 0.7 % (0.0-2.0); EOSINOPHILS % (AUTO) 2.2 % (0.0-3.0); HEMATOCRIT 39.3 % (42.0-52.0); HEMOGLOBIN 13.9 G/DL (14.2-18.0); MEAN CORPUSCULAR VOLUME 84 FL (80-99); MONOCYTES % (AUTO) 6.6 % (1.0-10.0); NEUTROPHILS % (AUTO) 53.5 % (45.0-75.0); PLATELET COUNT 139 K/UL (150-450); RED BLOOD COUNT 4.69 M/UL (4.70-6.10); RED CELL DISTRIBUTION WIDTH 11.6 % (11.6-14.8)
[2018-10-07 10:08] LABS: ANION GAP 7 mmol/L (5-15); BLOOD UREA NITROGEN 14 mg/dL (7-18); CALCIUM 8.4 MG/DL (8.5-10.1); CARBON DIOXIDE 28 MMOL/L (21-32); CHLORIDE 98 MMOL/L (98-107); CREATININE 0.9 MG/DL (0.55-1.30); SODIUM 132 MMOL/L (136-145)
[2018-10-07 12:00] VITALS: BP 119/76
--- NOTE | 2018-10-07 13:02 | Pulmonology Progress Note ---
Assessment/Plan Problems: (1) Hyperglycemia due to type 2 diabetes mellitus (2) COPD (chronic obstructive pulmonary disease) (3) Peripheral neuropathy (4) Lumbar degenerative disc disease (5) CVA (cerebral vascular accident) (6) Psychosomatic disorder (7) Noncompliance (8) Diabetes mellitus Assessment/Plan Bs was 400 this mroning pain better controlled sliding scale diabetic diet respiratory treatment sliding scale dvt prophylaxis pt/ot Subjective ROS Limited/Unobtainable: No Constitutional: Reports: no symptoms HEENT: Repors: no symptoms Respiratory: Reports: no symptoms, other Allergies: Coded Allergies: HALOPERIDOL (Verified Allergy, Unknown, 07/30/18) Objective Last 24 Hour Vital Signs Date Time Temp Pulse Resp B/P (MAP) Pulse Ox O2 Delivery O2 Flow Rate FiO2 10/07/18 12:00 98.9 89 20 119/76 (90) 94 10/07/18 09:58 97.8 10/07/18 08:00 97.8 90 20 125/76 (92) 95 10/07/18 04:00 98.0 81 18 120/75 (90) 96 10/07/18 00:00 98.3 75 19 129/72 (91) 96 10/06/18 21:00 Room Air 10/06/18 20:15 72 20 Room Air 21 10/06/18 20:00 98.9 80 19 135/79 (97) 98 10/06/18 16:00 98.9 77 22 131/77 (95) 96 Intake and Output 10/06/18 10/07/18 19:00 07:00 Intake Total 2480 ml 1600 ml Balance 2480 ml 1600 ml Intake Oral 1480 ml 600 ml IV Total 1000 ml 1000 ml # Voids 7 5 Objective General Appearance: WD/WN HEENT: normocephalic Respiratory/Chest: chest wall non-tender, lungs clear, normal breath sounds Cardiovascular: normal peripheral pulses, normal rate Abdomen: normal bowel sounds, soft, non tender Genitourinary: normal external genitalia Extremities: no clubbing Skin: no rash Laboratory Tests 10/07/18 09:35: White Blood Count 7.0, Red Blood Count 4.69L, Hemoglobin 13.9L, Hematocrit 39.3L , Mean Corpuscular Volume 84, Mean Corpuscular Hemoglobin 29.7, Mean Corpuscular Hemoglobin Concent 35.5, Red Cell Distribution Width 11.6, Platelet Count 139L, Mean Platelet Volume 8.6, Neutrophils (%) (Auto) 53.5, Lymphocytes ( %) (Auto) 37.0, Monocytes (%) (Auto) 6.6, Eosinophils (%) (Auto) 2.2, Basophils (%) (Auto) 0.7, Sodium Level 132L, Potassium Level 4.0, Chloride Level 98, Carbon Dioxide Level 28, Anion Gap 7, Blood Urea Nitrogen 14, Creatinine 0.9, Estimat Glomerular Filtration Rate > 60, Glucose Level 403H, Calcium Level 8.4L Current Medications Medications (Trade) Dose Ordered Sig/Sofia Route PRN Reason Start Time Stop Time Status Last Admin Dose Admin Acetaminophen (Tylenol) 650 mg Q4H PRN ORAL fever 10/04/18 07:00 11/03/18 06:59 Acetaminophen/ Hydrocodone Bitart ([place] 10) 1 tab Q4H PRN ORAL Severe Pain (Pain Scale 7-10) 10/05/18 17:15 10/12/18 17:14 10/07/18 09:28 Albuterol/ Ipratropium (Albuterol/ Ipratropium) 3 ml Q4H PRN HHN Shortness of Breath 10/04/18 07:00 10/09/18 06:59 Alprazolam (Xanax) 0.5 mg Q6H PRN ORAL For Anxiety 10/04/18 05:15 10/11/18 05:14 Clonidine HCl (Catapres Tab) 0.1 mg Q4H PRN ORAL SBP more than 160mmHg 10/04/18 07:00 11/03/18 06:59 Dextrose (Dextrose 50%) 25 ml Q30M PRN IV Hypoglycemia 10/05/18 09:45 11/04/18 09:44 Dextrose (Dextrose 50%) 50 ml Q30M PRN IV Hypoglycemia 10/05/18 09:45 11/04/18 09:44 Divalproex Sodium (Depakote) 1,000 mg EVERY 12 HOURS ORAL 10/04/18 09:00 11/03/18 08:59 10/07/18 09:10 Escitalopram Oxalate (Lexapro) 10 mg DAILY ORAL 10/04/18 09:00 11/03/18 08:59 10/07/18 09:10 Heparin Sodium (Porcine) (Heparin 5000 units/ml) 5,000 units EVERY 12 HOURS SUBQ 10/04/18 09:00 11/03/18 08:59 Insulin Aspart (NovoLOG) BEFORE MEALS AND HS SUBQ 10/04/18 11:30 11/03/18 11:29 10/07/18 11:55 Insulin Aspart (NovoLOG) 15 units NOVOTIAC SUBQ 10/07/18 11:50 11/04/18 11:49 10/07/18 11:54 Insulin Detemir (Levemir) 40 units DAILY SUBQ 10/07/18 09:00 11/04/18 10:59 10/07/18 09:13 Morphine Sulfate (Morphine Sulfate) 1 mg Q6H PRN IVP breakthrough severe pain 10/05/18 17:30 10/12/18 17:29 10/07/18 06:41 Nitroglycerin (Ntg) 0.4 mg Q5M X 3 DOSES PRN SL Prn Chest Pain 10/04/18 07:00 11/03/18 06:59 Ondansetron HCl (Zofran) 4 mg Q6H PRN IVP Nausea & Vomiting 10/04/18 07:00 11/03/18 06:59 10/07/18 11:19 Pantoprazole (Protonix) 40 mg EVERY 12 HOURS ORAL 10/04/18 21:00 11/03/18 20:59 10/07/18 09:11 Polyethylene Glycol (Miralax) 17 gm HSPRN PRN ORAL Constipation 10/04/18 07:00 11/03/18 06:59 Quetiapine Fumarate (SEROquel) 200 mg QHS ORAL 10/04/18 21:00 11/03/18 20:59 10/06/18 21:04 Sodium Chloride 1,000 ml @ 100 mls/hr Q10H IVLG 10/04/18 07:00 11/03/18 06:59 10/06/18 18:53 Temazepam (Restoril) 15 mg HSPRN PRN ORAL Insomnia 10/04/18 21:00 10/11/18 20:59 Lashanda Pham MD Oct 07, 2018 13:02
--- NOTE | 2018-10-07 13:13 | Nephrology Progress Note ---
Assessment/Plan Problem List: (1) Hyperglycemia due to type 2 diabetes mellitus (2) Hyponatremia (3) COPD exacerbation Assessment Hyperglycemia due to type 2 diabetes mellitus Hyponatremia due to high blood sugar COPD (chronic obstructive pulmonary disease Peripheral neuropathy Lumbar degenerative disc disease CVA (cerebral vascular accident) Psychosomatic disorder Noncompliance Hydrocephalus Plan Hydrate- BS control monitor electroltes per orders Subjective ROS Limited/Unobtainable: No Objective Objective Last 24 Hour Vital Signs Date Time Temp Pulse Resp B/P (MAP) Pulse Ox O2 Delivery O2 Flow Rate FiO2 10/07/18 12:00 98.9 89 20 119/76 (90) 94 10/07/18 09:58 97.8 10/07/18 08:00 97.8 90 20 125/76 (92) 95 10/07/18 04:00 98.0 81 18 120/75 (90) 96 10/07/18 00:00 98.3 75 19 129/72 (91) 96 10/06/18 21:00 Room Air 10/06/18 20:15 72 20 Room Air 21 10/06/18 20:00 98.9 80 19 135/79 (97) 98 10/06/18 16:00 98.9 77 22 131/77 (95) 96 Intake and Output 10/06/18 10/07/18 19:00 07:00 Intake Total 2480 ml 1600 ml Balance 2480 ml 1600 ml Intake Oral 1480 ml 600 ml IV Total 1000 ml 1000 ml # Voids 7 5 Laboratory Tests 10/07/18 09:35: White Blood Count 7.0, Red Blood Count 4.69L, Hemoglobin 13.9L, Hematocrit 39.3L , Mean Corpuscular Volume 84, Mean Corpuscular Hemoglobin 29.7, Mean Corpuscular Hemoglobin Concent 35.5, Red Cell Distribution Width 11.6, Platelet Count 139L, Mean Platelet Volume 8.6, Neutrophils (%) (Auto) 53.5, Lymphocytes ( %) (Auto) 37.0, Monocytes (%) (Auto) 6.6, Eosinophils (%) (Auto) 2.2, Basophils (%) (Auto) 0.7, Sodium Level 132L, Potassium Level 4.0, Chloride Level 98, Carbon Dioxide Level 28, Anion Gap 7, Blood Urea Nitrogen 14, Creatinine 0.9, Estimat Glomerular Filtration Rate > 60, Glucose Level 403H, Calcium Level 8.4L Height (Feet): 5 Height (Inches): 11.00 Weight (Pounds): 279 General Appearance: no apparent distress Objective no change Sai Merino MD Oct 07, 2018 13:13
--- NOTE | 2018-10-07 13:29 | General Progress Note ---
Assessment/Plan Problem List: (1) Renal insufficiency ICD Codes: N28.9 - Disorder of kidney and ureter, unspecified SNOMED: 274965451, 867230716 (2) Depressed ICD Codes: F32.9 - Major depressive disorder, single episode, unspecified SNOMED: 75142605 (3) Seizure ICD Codes: R56.9 - Unspecified convulsions SNOMED: 41097568 (4) Hyperglycemia due to type 2 diabetes mellitus ICD Codes: E11.65 - Type 2 diabetes mellitus with hyperglycemia SNOMED: 896632552275743 (5) Diabetes mellitus ICD Codes: E11.9 - Diabetes mellitus SNOMED: 15319645 (6) COPD (chronic obstructive pulmonary disease) ICD Codes: J44.9 - Chronic obstructive pulmonary disease, unspecified SNOMED: 91256995 (7) CVA (cerebral vascular accident) ICD Codes: I63.9 - Cerebral infarction, unspecified SNOMED: 101251506 Status: stable, progressing Assessment/Plan ot pt diet bs bp pain control cbc bmp am dc plan if clear Subjective Constitutional: Reports: weakness Allergies: Coded Allergies: HALOPERIDOL (Verified Allergy, Unknown, 07/30/18) All Systems: reviewed and negative except above Subjective sl back pain Objective Last 24 Hour Vital Signs Date Time Temp Pulse Resp B/P (MAP) Pulse Ox O2 Delivery O2 Flow Rate FiO2 10/07/18 13:25 78 20 Room Air 21 10/07/18 12:00 98.9 89 20 119/76 (90) 94 10/07/18 09:58 97.8 10/07/18 08:00 97.8 90 20 125/76 (92) 95 10/07/18 04:00 98.0 81 18 120/75 (90) 96 10/07/18 00:00 98.3 75 19 129/72 (91) 96 10/06/18 21:00 Room Air 10/06/18 20:15 72 20 Room Air 21 10/06/18 20:00 98.9 80 19 135/79 (97) 98 10/06/18 16:00 98.9 77 22 131/77 (95) 96 Intake and Output 10/06/18 10/07/18 19:00 07:00 Intake Total 2480 ml 1600 ml Balance 2480 ml 1600 ml Intake Oral 1480 ml 600 ml IV Total 1000 ml 1000 ml # Voids 7 5 Laboratory Tests 10/07/18 09:35: White Blood Count 7.0, Red Blood Count 4.69L, Hemoglobin 13.9L, Hematocrit 39.3L , Mean Corpuscular Volume 84, Mean Corpuscular Hemoglobin 29.7, Mean Corpuscular Hemoglobin Concent 35.5, Red Cell Distribution Width 11.6, Platelet Count 139L, Mean Platelet Volume 8.6, Neutrophils (%) (Auto) 53.5, Lymphocytes ( %) (Auto) 37.0, Monocytes (%) (Auto) 6.6, Eosinophils (%) (Auto) 2.2, Basophils (%) (Auto) 0.7, Sodium Level 132L, Potassium Level 4.0, Chloride Level 98, Carbon Dioxide Level 28, Anion Gap 7, Blood Urea Nitrogen 14, Creatinine 0.9, Estimat Glomerular Filtration Rate > 60, Glucose Level 403H, Calcium Level 8.4L Height (Feet): 5 Height (Inches): 11.00 Weight (Pounds): 279 General Appearance: alert EENT: normal ENT inspection Neck: normal alignment Cardiovascular: normal peripheral pulses, normal rate, regular rhythm Respiratory/Chest: chest wall non-tender, lungs clear, normal breath sounds Abdomen: normal bowel sounds, non tender, soft Extremities: normal inspection Edema: no edema noted Arm (L), no edema noted Arm (R), no edema noted Leg (L), no edema noted Leg (R), no edema noted Pedal (L), no edema noted Pedal (R), no edema noted Generalized Neurologic: responsive, motor weakness Skin: normal pigmentation, warm/dry Aniceto Sepulveda DO Oct 07, 2018 13:29
[2018-10-07 16:00] VITALS: BP 129/77
[2018-10-07 20:00] VITALS: BP 124/70
[2018-10-07] MEDS: QUEtiapine 200mg tab ORAL SCH (21:31)
[2018-10-08] VITALS: BP 118/72
[2018-10-08] MEDS: Morphine Sulfate 2mg/ml Inj IVP PRN ×3 (02:18→09:27)
[2018-10-08 04:00] VITALS: BP 122/75
[2018-10-08] MEDS: NovoLOG Insulin Flexpen SUBQ SCH ×4 (06:28→11:45)
--- NOTE | 2018-10-08 07:27 | General Progress Note ---
Assessment/Plan Problem List: (1) COPD (chronic obstructive pulmonary disease) ICD Codes: J44.9 - Chronic obstructive pulmonary disease, unspecified SNOMED: 45885968 (2) Uncontrolled seizures ICD Codes: R56.9 - Unspecified convulsions SNOMED: 01342637 (3) Noncompliance ICD Codes: Z91.19 - Patient's noncompliance with other medical treatment and regimen SNOMED: 1883921 Assessment/Plan continue Levemir 40 units daily continue Novolog 15 units ac tid continue NISS ac / hs Subjective Allergies: Coded Allergies: HALOPERIDOL (Verified Allergy, Unknown, 07/30/18) All Systems: reviewed and negative except above Subjective events noted - glucose values improving Objective Last 24 Hour Vital Signs Date Time Temp Pulse Resp B/P (MAP) Pulse Ox O2 Delivery O2 Flow Rate FiO2 10/08/18 06:57 80 16 Room Air 21 10/08/18 04:00 97.9 79 18 122/75 (91) 97 10/08/18 00:00 97.0 81 20 118/72 (87) 96 10/07/18 21:00 Room Air 10/07/18 20:32 92 20 Room Air 21 10/07/18 20:00 97.7 93 19 124/70 (88) 95 10/07/18 17:49 97.8 10/07/18 16:00 97.8 98 19 129/77 (94) 94 10/07/18 13:37 98.9 10/07/18 13:25 78 20 Room Air 21 10/07/18 12:00 98.9 89 20 119/76 (90) 94 10/07/18 09:00 Room Air 10/07/18 08:00 97.8 90 20 125/76 (92) 95 Intake and Output 10/07/18 10/08/18 18:59 06:59 Intake Total 2000 ml 1700 ml Balance 2000 ml 1700 ml Intake Oral 800 ml 500 ml IV Total 1200 ml 1200 ml # Voids 3 5 Laboratory Tests 10/07/18 09:35: White Blood Count 7.0, Red Blood Count 4.69L, Hemoglobin 13.9L, Hematocrit 39.3L , Mean Corpuscular Volume 84, Mean Corpuscular Hemoglobin 29.7, Mean Corpuscular Hemoglobin Concent 35.5, Red Cell Distribution Width 11.6, Platelet Count 139L, Mean Platelet Volume 8.6, Neutrophils (%) (Auto) 53.5, Lymphocytes ( %) (Auto) 37.0, Monocytes (%) (Auto) 6.6, Eosinophils (%) (Auto) 2.2, Basophils (%) (Auto) 0.7, Sodium Level 132L, Potassium Level 4.0, Chloride Level 98, Carbon Dioxide Level 28, Anion Gap 7, Blood Urea Nitrogen 14, Creatinine 0.9, Estimat Glomerular Filtration Rate > 60, Glucose Level 403H, Calcium Level 8.4L Height (Feet): 5 Height (Inches): 11.00 Weight (Pounds): 279 General Appearance: no apparent distress Neck: normal alignment Cardiovascular: normal rate Respiratory/Chest: lungs clear Abdomen: normal bowel sounds Objective Current Medications Medications (Trade) Dose Ordered Sig/Sofia Route PRN Reason Start Time Stop Time Status Last Admin Dose Admin Acetaminophen (Tylenol) 650 mg Q4H PRN ORAL fever 10/04/18 07:00 11/03/18 06:59 Acetaminophen/ Hydrocodone Bitart ([place] 10/325) 1 tab Q4H PRN ORAL Severe Pain (Pain Scale 7-10) 10/05/18 17:15 10/12/18 17:14 10/07/18 17:19 Albuterol/ Ipratropium (Albuterol/ Ipratropium) 3 ml Q4H PRN HHN Shortness of Breath 10/04/18 07:00 10/09/18 06:59 Alprazolam (Xanax) 0.5 mg Q6H PRN ORAL For Anxiety 10/04/18 05:15 10/11/18 05:14 Clonidine HCl (Catapres Tab) 0.1 mg Q4H PRN ORAL SBP more than 160mmHg 10/04/18 07:00 11/03/18 06:59 Dextrose (Dextrose 50%) 25 ml Q30M PRN IV Hypoglycemia 10/05/18 09:45 11/04/18 09:44 Dextrose (Dextrose 50%) 50 ml Q30M PRN IV Hypoglycemia 10/05/18 09:45 11/04/18 09:44 Divalproex Sodium (Depakote) 1,000 mg EVERY 12 HOURS ORAL 10/04/18 09:00 11/03/18 08:59 10/07/18 21:32 Escitalopram Oxalate (Lexapro) 10 mg DAILY ORAL 10/04/18 09:00 11/03/18 08:59 10/07/18 09:10 Heparin Sodium (Porcine) (Heparin 5000 units/ml) 5,000 units EVERY 12 HOURS SUBQ 10/04/18 09:00 11/03/18 08:59 Insulin Aspart (NovoLOG) BEFORE MEALS AND HS SUBQ 10/04/18 11:30 11/03/18 11:29 10/08/18 06:28 Insulin Aspart (NovoLOG) 15 units NOVOTIAC SUBQ 10/07/18 11:50 11/04/18 11:49 10/08/18 06:28 Insulin Detemir (Levemir) 40 units DAILY SUBQ 10/07/18 09:00 11/04/18 10:59 10/07/18 09:13 Morphine Sulfate (Morphine Sulfate) 1 mg Q6H PRN IVP breakthrough severe pain 10/05/18 17:30 10/12/18 17:29 10/08/18 02:18 Nitroglycerin (Ntg) 0.4 mg Q5M X 3 DOSES PRN SL Prn Chest Pain 10/04/18 07:00 11/03/18 06:59 Ondansetron HCl (Zofran) 4 mg Q6H PRN IVP Nausea & Vomiting 10/04/18 07:00 11/03/18 06:59 10/07/18 18:09 Pantoprazole (Protonix) 40 mg EVERY 12 HOURS ORAL 10/04/18 21:00 11/03/18 20:59 10/07/18 21:32 Polyethylene Glycol (Miralax) 17 gm HSPRN PRN ORAL Constipation 10/04/18 07:00 11/03/18 06:59 Quetiapine Fumarate (SEROquel) 200 mg QHS ORAL 10/04/18 21:00 11/03/18 20:59 10/07/18 21:31 Sodium Chloride 1,000 ml @ 100 mls/hr Q10H IVLG 10/04/18 07:00 11/03/18 06:59 10/08/18 01:20 Temazepam (Restoril) 15 mg HSPRN PRN ORAL Insomnia 10/04/18 21:00 10/11/18 20:59 Item Value Date Time Bedside Blood Glucose 296 mg/dl H 10/07/18 2136 Bedside Blood Glucose 170 mg/dl H 10/07/18 1645 Bedside Blood Glucose 290 mg/dl H 10/07/18 1155 Bedside Blood Glucose 261 mg/dl H 10/07/18 0913 Bedside Blood Glucose 261 mg/dl H 10/07/18 0640 Tavo Malhotra MD Oct 08, 2018 07:27
[2018-10-08 08:00] VITALS: BP 122/71
[2018-10-08] MEDS: Depakote 500mg tab ORAL SCH (08:44)
[2018-10-08] MEDS: Levemir Flexpen SUBQ SCH (08:50)
[2018-10-08] MEDS: Heparin 5000 units/ml inj SUBQ SCH (08:52)
--- NOTE | 2018-10-08 09:02 | General Progress Note ---
Assessment/Plan Assessment/Plan (1) Chiari malformation type II (2) Degenerative disc disease, cervical (3) Lumbar degenerative disc disease (4) Arthritis, lumbar spine (5) Peripheral neuropathy (6) Hydrocephalus (7) Diabetes mellitus Pt will be continued on the Morphine and [place]. We will start Robaxin 500mg PO 1 tab Q8H PRN muscle spasm. Pt was d/w Dr. Napier and he concurred. Subjective Date patient seen: Oct 08, 2018 Time patient seen: 07:00 - am Allergies: Coded Allergies: HALOPERIDOL (Verified Allergy, Unknown, 07/30/18) Subjective Constitutional: Reports: weakness, Denies: chills, diaphoresis, fever, malaise , no symptoms, other HEENT: Denies: blurred vision, double vision, ear discharge, ear pain, eye pain , mouth pain, mouth swelling, no symptoms, nose congestion, nose pain, other, tearing, throat pain, throat swelling Cardiovascular: Denies: chest pain, edema, irregular heart rate, lightheadedness, no symptoms, other, palpitations, syncope Respiratory: Denies: SOB at rest, SOB with excertion, cough, no symptoms, orthopnea, other, shortness of breath, sputum, stridor, wheezing Gastrointestinal/Abdominal: Denies: abdomen distended, abdominal pain, black stools, blood in stool, constipated, diarrhea, difficulty swallowing, nausea, no symptoms, other, poor appetite, poor fluid intake, rectal bleeding, tarry stools, vomiting Genitourinary: Denies: burning, discharge, flank pain, frequency, hematuria, incontinence, no symptoms, other, pain, urgency Neurologic/Psychiatric: Reports: headache, numbness, tingling, weakness, Denies : anxiety, depressed, emotional problems, no symptoms, other, paresthesia, pre- existing deficit, seizure, tremors Endocrine: Denies: excessive sweating, flushing, increased hunger, increased thirst, increased urine, intolerance to cold, intolerance to heat, no symptoms, other, unexplained weight gain, unexplained weight loss Hematologic/Lymphatic: Denies: anemia, easy bleeding, easy bruising, no symptoms, other Subjective Patient is walking and standing. He reports that the pain has been tolerated on the [place] and Morphine. Is c/o spasms in his back. Objective Last 24 Hour Vital Signs Date Time Temp Pulse Resp B/P (MAP) Pulse Ox O2 Delivery O2 Flow Rate FiO2 10/08/18 06:57 80 16 Room Air 21 10/08/18 04:00 97.9 79 18 122/75 (91) 97 10/08/18 00:00 97.0 81 20 118/72 (87) 96 10/07/18 21:00 Room Air 10/07/18 20:32 92 20 Room Air 21 10/07/18 20:00 97.7 93 19 124/70 (88) 95 10/07/18 17:49 97.8 10/07/18 16:00 97.8 98 19 129/77 (94) 94 10/07/18 13:37 98.9 10/07/18 13:25 78 20 Room Air 21 10/07/18 12:00 98.9 89 20 119/76 (90) 94 Intake and Output 10/07/18 10/08/18 18:59 06:59 Intake Total 2000 ml 1700 ml Balance 2000 ml 1700 ml Intake Oral 800 ml 500 ml IV Total 1200 ml 1200 ml # Voids 3 5 Laboratory Tests 10/07/18 09:35: White Blood Count 7.0, Red Blood Count 4.69L, Hemoglobin 13.9L, Hematocrit 39.3L , Mean Corpuscular Volume 84, Mean Corpuscular Hemoglobin 29.7, Mean Corpuscular Hemoglobin Concent 35.5, Red Cell Distribution Width 11.6, Platelet Count 139L, Mean Platelet Volume 8.6, Neutrophils (%) (Auto) 53.5, Lymphocytes ( %) (Auto) 37.0, Monocytes (%) (Auto) 6.6, Eosinophils (%) (Auto) 2.2, Basophils (%) (Auto) 0.7, Sodium Level 132L, Potassium Level 4.0, Chloride Level 98, Carbon Dioxide Level 28, Anion Gap 7, Blood Urea Nitrogen 14, Creatinine 0.9, Estimat Glomerular Filtration Rate > 60, Glucose Level 403H, Calcium Level 8.4L Height (Feet): 5 Height (Inches): 11.00 Weight (Pounds): 279 Joao Munoz Oct 08, 2018 09:02
[2018-10-08] MEDS ORDERED: Methocarbamol 500mg tab ORAL PRN (09:15)
[2018-10-08 10:58] LABS: HEMATOCRIT 39.3 % (42.0-52.0); HEMOGLOBIN 14.1 G/DL (14.2-18.0); LYMPHOCYTES % (AUTO) 31.2 % (20.0-45.0); MEAN CORPUSCULAR VOLUME 84 FL (80-99); MONOCYTES % (AUTO) 9.7 % (1.0-10.0); NEUTROPHILS % (AUTO) 56.1 % (45.0-75.0); PLATELET COUNT 152 K/UL (150-450); RED BLOOD COUNT 4.66 M/UL (4.70-6.10); RED CELL DISTRIBUTION WIDTH 11.8 % (11.6-14.8); WHITE BLOOD COUNT 8.2 K/UL (4.8-10.8)
[2018-10-08 11:08] LABS: ANION GAP 9 mmol/L (5-15); BLOOD UREA NITROGEN 14 mg/dL (7-18); CALCIUM 8.5 MG/DL (8.5-10.1); CARBON DIOXIDE 26 MMOL/L (21-32); CHLORIDE 103 MMOL/L (98-107); CREATININE 0.9 MG/DL (0.55-1.30); POTASSIUM 3.8 MMOL/L (3.5-5.1); SODIUM 137 MMOL/L (136-145)
--- NOTE | 2018-10-08 11:21 | General Progress Note ---
Assessment/Plan Problem List: (1) Renal insufficiency ICD Codes: N28.9 - Disorder of kidney and ureter, unspecified SNOMED: 183506150, 291984357 (2) Depressed ICD Codes: F32.9 - Major depressive disorder, single episode, unspecified SNOMED: 10984287 (3) Seizure ICD Codes: R56.9 - Unspecified convulsions SNOMED: 71858652 (4) Hyperglycemia due to type 2 diabetes mellitus ICD Codes: E11.65 - Type 2 diabetes mellitus with hyperglycemia SNOMED: 579654963817976 (5) Diabetes mellitus ICD Codes: E11.9 - Diabetes mellitus SNOMED: 91948255 (6) COPD (chronic obstructive pulmonary disease) ICD Codes: J44.9 - Chronic obstructive pulmonary disease, unspecified SNOMED: 86775793 (7) CVA (cerebral vascular accident) ICD Codes: I63.9 - Cerebral infarction, unspecified SNOMED: 161490264 Assessment/Plan ot pt diet bs bp pain control cbc bmp am dc if clear Subjective Constitutional: Reports: weakness Allergies: Coded Allergies: HALOPERIDOL (Verified Allergy, Unknown, 07/30/18) All Systems: reviewed and negative except above Subjective sl back pain Objective Last 24 Hour Vital Signs Date Time Temp Pulse Resp B/P (MAP) Pulse Ox O2 Delivery O2 Flow Rate FiO2 10/08/18 09:57 98.5 10/08/18 09:00 Room Air 10/08/18 08:00 98.5 91 20 122/71 (88) 94 10/08/18 06:57 80 16 Room Air 10/08/18 04:00 97.9 79 18 122/75 (91) 97 10/08/18 00:00 97.0 81 20 118/72 (87) 96 10/07/18 21:00 Room Air 10/07/18 20:32 92 20 Room Air 21 10/07/18 20:00 97.7 93 19 124/70 (88) 95 10/07/18 17:49 97.8 10/07/18 16:00 97.8 98 19 129/77 (94) 94 10/07/18 13:25 78 20 Room Air 21 10/07/18 12:00 98.9 89 20 119/76 (90) 94 Intake and Output 10/07/18 10/08/18 19:00 07:00 Intake Total 2000 ml 1600 ml Balance 2000 ml 1600 ml Intake Oral 800 ml 500 ml IV Total 1200 ml 1100 ml # Voids 3 5 Laboratory Tests 10/08/18 10:35: White Blood Count 8.2, Red Blood Count 4.66L, Hemoglobin 14.1L, Hematocrit 39.3L , Mean Corpuscular Volume 84, Mean Corpuscular Hemoglobin 30.2, Mean Corpuscular Hemoglobin Concent 35.8, Red Cell Distribution Width 11.8, Platelet Count 152, Mean Platelet Volume 8.4, Neutrophils (%) (Auto) 56.1, Lymphocytes (% ) (Auto) 31.2, Monocytes (%) (Auto) 9.7, Eosinophils (%) (Auto) 2.0, Basophils ( %) (Auto) 1.0, Sodium Level 137, Potassium Level 3.8, Chloride Level 103, Carbon Dioxide Level 26, Anion Gap 9, Blood Urea Nitrogen 14, Creatinine 0.9, Estimat Glomerular Filtration Rate > 60, Glucose Level 218#H, Calcium Level 8.5 Height (Feet): 5 Height (Inches): 11.00 Weight (Pounds): 279 General Appearance: alert EENT: normal ENT inspection Neck: normal alignment Cardiovascular: normal peripheral pulses, normal rate, regular rhythm Respiratory/Chest: chest wall non-tender, lungs clear, normal breath sounds Abdomen: normal bowel sounds, non tender, soft Extremities: normal inspection Edema: no edema noted Arm (L), no edema noted Arm (R), no edema noted Leg (L), no edema noted Leg (R), no edema noted Pedal (L), no edema noted Pedal (R), no edema noted Generalized Neurologic: responsive, motor weakness Skin: normal pigmentation, warm/dry Aniceto Sepulveda DO Oct 08, 2018 11:21
[2018-10-08 12:00] VITALS: BP 142/72
[2018-10-08] MEDS ORDERED: ALPRAZOLAM0.5 MG PO (12:31)
[2018-10-08] MEDS ORDERED: DIVALPROEX SOD500 MG PO (12:32)
[2018-10-08] MEDS ORDERED: NOVOLOG100 UNIT/4 SQ (12:36)
[2018-10-08] MEDS ORDERED: METHOCARBAMOL500 M1 PO (12:37)
[2018-10-08] MEDS ORDERED: PANTOPRAZOLE SO20 MG ORAL (12:39)
[2018-10-08] MEDS: HYDROcodone/Acetamin 10/325 tab ORAL PRN (14:14)
--- NOTE | 2018-10-08 14:50 | Nephrology Progress Note ---
Assessment/Plan Problem List: (1) Hyperglycemia due to type 2 diabetes mellitus (2) Hyponatremia (3) COPD exacerbation Assessment Hyperglycemia due to type 2 diabetes mellitus Hyponatremia due to high blood sugar COPD (chronic obstructive pulmonary disease Peripheral neuropathy Lumbar degenerative disc disease CVA (cerebral vascular accident) Psychosomatic disorder Noncompliance Hydrocephalus Plan Hydrate- BS control monitor electroltes per orders DC planning Subjective ROS Limited/Unobtainable: No Objective Objective Last 24 Hour Vital Signs Date Time Temp Pulse Resp B/P (MAP) Pulse Ox O2 Delivery O2 Flow Rate FiO2 10/08/18 12:00 98.1 89 19 142/72 (95) 95 10/08/18 09:57 98.5 10/08/18 09:00 Room Air 10/08/18 08:00 98.5 91 20 122/71 (88) 94 10/08/18 06:57 80 16 Room Air 21 10/08/18 04:00 97.9 79 18 122/75 (91) 97 10/08/18 00:00 97.0 81 20 118/72 (87) 96 10/07/18 21:00 Room Air 10/07/18 20:32 92 20 Room Air 21 10/07/18 20:00 97.7 93 19 124/70 (88) 95 10/07/18 17:49 97.8 10/07/18 16:00 97.8 98 19 129/77 (94) 94 Intake and Output 10/07/18 10/08/18 19:00 07:00 Intake Total 2000 ml 1600 ml Balance 2000 ml 1600 ml Intake Oral 800 ml 500 ml IV Total 1200 ml 1100 ml # Voids 3 5 Laboratory Tests 10/08/18 10:35: White Blood Count 8.2, Red Blood Count 4.66L, Hemoglobin 14.1L, Hematocrit 39.3L , Mean Corpuscular Volume 84, Mean Corpuscular Hemoglobin 30.2, Mean Corpuscular Hemoglobin Concent 35.8, Red Cell Distribution Width 11.8, Platelet Count 152, Mean Platelet Volume 8.4, Neutrophils (%) (Auto) 56.1, Lymphocytes (% ) (Auto) 31.2, Monocytes (%) (Auto) 9.7, Eosinophils (%) (Auto) 2.0, Basophils ( %) (Auto) 1.0, Sodium Level 137, Potassium Level 3.8, Chloride Level 103, Carbon Dioxide Level 26, Anion Gap 9, Blood Urea Nitrogen 14, Creatinine 0.9, Estimat Glomerular Filtration Rate > 60, Glucose Level 218#H, Calcium Level 8.5 Height (Feet): 5 Height (Inches): 11.00 Weight (Pounds): 279 General Appearance: no apparent distress Objective no change Sai Merino MD Oct 08, 2018 14:50
--- NOTE | 2018-10-08 21:15 | Progress Note ---
DATE: 10/07/2018 SUBJECTIVE: This is a 38-year-old male patient. The patient is diagnosed with schizoaffective bipolar type. This patient is still very confused, disorganized, hypoglycemic, . That is why the attending has requested daily psychiatric consultation to prevent any further decline in his cognition. MENTAL STATUS EXAMINATION: This is a 38-year-old male. Appearance is disheveled. Attitude, irritable and agitated. Affect, guarded and restricted. Intellect poor. Mood, depressed and anxious. Motor activity, psychomotor agitation. Attention span is poor. Orientation x2. Speech is pressured. Thought process, disorganized and illogical. Thought content, auditory hallucinations and paranoid delusions. Insight and judgment are poor. DIAGNOSIS: Schizoaffective, bipolar type. PLAN: Treat him with Seroquel 200 mg nightly, Depakote 500 mg twice a day, and Celexa 20 mg daily. Also, 20 minutes of cognitive behavioral therapy provided to help the patient identify his automatic negative thoughts and help him to convert his automatic negative thoughts to more positive thoughts to reduce depression, anxiety, and mood lability. 20 minutes of cognitive behavioral therapy also provided to have a more adaptive behavior pattern and . Charmaine Victor M.D. DR: LEROY JOB#: [id number] CC:
--- NOTE | 2018-10-08 21:30 | Progress Note ---
DATE: 10/08/2018 SUBJECTIVE: This 38-year-old male patient is seen this morning with hypoglycemia. He also has increased mood lability and diagnosed with bipolar II, rule out schizoaffective disorder. So, his attending has continued to request daily psychiatric consultation to help manage the patient's hypoglycemia and mood lability, which is worsened secondary to the stress of his medical illness. MENTAL STATUS EXAMINATION: The patient is a 38-year-old male. Appearance is disheveled. Attitude, irritable and agitated. Affect guarded and restricted. Intellect poor. Mood depressed and anxious. Motor activity, psychomotor agitation. Attention span is poor. Orientation x2. Speech is low volume and slurred. Thought process, disorganized and illogical. Insight and judgment are poor. DIAGNOSIS: Schizoaffective, bipolar type. PLAN: Treat him with Seroquel 200 mg nightly, Depakote 500 mg p.o. q.12 h., and Celexa 10 mg daily. Also, provided him 20 minutes of cognitive behavior therapy to help him identify automatic negative thoughts and help him to convert his negative thoughts to more positive thinking to reduce depression, anxiety, and suicidality. Chart reviewed and discussed with staff. Seen and assessed at bedside. Charmaine Victor M.D. DR: GLYNN JOB#: [id number] CC:
--- NOTE | 2018-10-09 02:15 | Progress Note ---
DATE: 10/07/2018 NOTE: POOR AUDIO PSYCHOTHERAPY CONSULTATION PROGRESS NOTE TREATING ATTENDING PHYSICIAN: Aniceto Sepulveda D.O. SUBJECTIVE: The patient is a 38-year-old male patient who has a diagnosis of schizoaffective disorder, bipolar type. This patient is feeling very helpless due to her medical condition and states that he does not feel well. continues to complaining of anxiety and and agitation. This clinician assessed this patient. MENTAL STATUS EXAMINATION: The patient is alert and oriented to person, place, and time. His mood is irritable. Affect is anxious. Thought process, organized. Thought content, linear. Fair attention and concentration. Fair insight, judgment, and impulse control. DIAGNOSIS: Schizoaffective disorder, bipolar type. PLAN: The patient is provided with supportive psychotherapy. The patient . Today, the patient's thoughts anxiety and the patient is emotionally distressed due to his medical condition. Provided the patient with cognitive behavioral therapy ability and working on identifying his positive coping skills to address the patient's restlessness and anxiety. the patient's negative and catastrophic thoughts get better and providing him with more positive coping skills and relaxation exercises. Continue with behavioral management. This clinician has reviewed the patient's chart and discussed the treatment with treatment team. Juan Chinchilla PsyD. DR: EDMAR JOB#: [id number] CC:
--- NOTE | 2018-10-11 09:25 | Discharge Summary ---
Discharge Summary Discharge Summary _ DATE OF ADMISSION: 10/04/2018 DATE OF DISCHARGE: 10/08/2018 DISCHARGED BY: Dr. Sepulveda REASON FOR ADMISSION: 38 years old male with past medical history of insulin-dependent diabetes mellitus, COPD, Chiari malformation, CVA, seizure disorder, schizoaffective disorder, presented from the longterm facility with hyperglycemia. Vital signs are stable. Laboratory workup revealed no leukocytosis, stable hemoglobin hematocrit. Glucose 527. Sable anion gap ,potassium and CO2. Magnesium 1.4 Urinalysis revealed +4glucose , but was negative for ketones. CONSULTANTS: pulmonary Dr. Pham gis engineer Dr. Merino psychiatrist Dr. Victor house wrecker Dr. Malhotra pain specialist Dr. Napier HOSPITAL COURSE: Patient was admitted and started on generous IV hydration and blood sugar management. Fast Food Crew Member consulted. Blood sugar was managed with long-acting Levemir and pre-meal insulin. Sliding scale of insulin was implemented on as needed basis. Hemoglobin A1c - 9.9 ,clearly not at goal. Patient apparently noncompliant with treatment at the facility. Patient was counseled on compliance with medication regimen and diabetic diet. Supplemental oxygen provided as needed to keep pulse oximetry above 92%. Pulmonary toilet was on standby as needed. Respiratory status was stable , with no evidence of COPD exacerbation. Housing Officer followed. Renal parameters and electrolytes were closely monitored. Electrolytes corrected as needed. Nephrotoxins were avoided. TSH within normal limits. Lipid panel with stable LDL and elevated triglycerides 335 . Patient was educated on low-fat low-cholesterol diabetic diet. Hyponatremia was likely due to dehydration and resolved with IV hydration. Prior to discharge sodium 137. DVT and GI prophylaxis provided. Patient with degenerative disc disease of cervical and lumbar spine as well as the arthritis, peripheral neuropathy and Chiari malformation type II. Pain management was provided as per pain specialist recommendations. Pain was controlled. Psychiatrist followed. Psychiatrist diagnosed patient with schizoaffective disorder bipolar type. Psychiatric medication regimen was optimized. Patient was on Seroquel, Depakote and Celexa. Patient received cognitive behavioral therapy. Patient clinically stabilized, blood sugar controlled. Patient was ready for transfer back to longterm [facility] [place] for continuation of care FINAL DIAGNOSES: Hyperglycemia due to type 2 diabetes mellitus Noncompliance COPD Chiari malformation type II Degenerative disc disease, cervical Lumbar degenerative disc disease Arthritis, lumbar spine Peripheral neuropathy Hyponatremia History of CVA Schizoaffective disorder bipolar typeSchizo DISCHARGE MEDICATIONS: See Medication Reconciliation list. DISCHARGE INSTRUCTIONS: Patient was discharged to the longterm facility. Follow up with medical doctor at the facility. I have been assigned to dictate discharge summary for this account. I was not involved in the patient's management. Elisa Antony NP Oct 11, 2018 09:25
== END 2018-10-08 15:19 | DRG 638 ==
LOC: EDUNIT# 01:41 → EDBD 01:41 → EMR 01:55 → 4E 03:23 → EDBEDREQ 04:29
DX: E11.65 Type 2 diabetes mellitus with hyperglycemia (principal); E87.1 Hypo-osmolality and hyponatremia; Q07.02 Arnold-Chiari syndrome with hydrocephalus; J44.9 Chronic obstructive pulmonary disease, unspecified; I10 Essential (primary) hypertension; Z88.8 Allergy status to other drugs, medicaments and biological substances; Z79.4 Long term (current) use of insulin; Z86.73 Personal history of transient ischemic attack (TIA), and cerebral infarction without residual deficits; Z91.19 Patient's noncompliance with other medical treatment and regimen; M51.36 Other intervertebral disc degeneration, lumbar region; M50.30 Other cervical disc degeneration, unspecified cervical region; M46.96 Unspecified inflammatory spondylopathy, lumbar region; G62.9 Polyneuropathy, unspecified; F25.0 Schizoaffective disorder, bipolar type; F45.9 Somatoform disorder, unspecified; F32.9 Major depressive disorder, single episode, unspecified; E86.0 Dehydration
CPT/HCPCS: 36415; 80048; 80053; 80061; 81003; 82009; 82607; 82746; 82962; 83036; 83735; 84100; 84443; 84550; 85025; 86140; 87081; 94664; 96361; 96374; 99285; J1815; J2405; S5561

== ENCOUNTER 2018-11-30 16:58 | Inpatient (IN) | payer MEDICARE, MEDICAID ==
[~2018-11-30] VITALS: Ht 180.3 cm; Wt 121.1 kg
[~2018-11-30 16:58] MED LIST changes: +ALPRAZOLAM0.5 MG PO; +DIVALPROEX SOD500 MG PO; +METHOCARBAMOL500 M1 PO; +NOVOLOG100 UNIT/4 SQ; +PANTOPRAZOLE SO20 MG ORAL
[2018-11-30] MEDS ORDERED: DEPAKOTE250 MG PO (17:05)
--- NOTE | 2018-11-30 17:12 | NUR ---
ED Nurse Note: Pt came into the ER w/ complaints of generalized weakness x 3 days. According to the pt, pt has been vomiting the food he ate x 6 times over the last 3 days. Pt is comlpaining of generalized body pain. Rating the pain an 8/10. Pt is pt of Dr. Aniceto Sepulveda. A + O x4. Ambulatory. Skin warm to touch.
[2018-11-30 17:14] VITALS: BP 99/74
[2018-11-30] MEDS ORDERED: Insulin Human Regular 100units/ml 3ml IV ONE (17:45)
[2018-11-30 18:17] LABS: APPEARANCE,URINE CLEAR; BILIRUBIN, URINE NEGATIVE (NEGATIVE); GLUCOSE, URINE (UA) 2+ (NEGATIVE); KETONES,URINE NEGATIVE (NEGATIVE); LEUKOCYTE ESTERASE ,URINE 1+ (NEGATIVE); NITRITE,URINE NEGATIVE (NEGATIVE); PH,URINE 7 (4.5-8.0); PROTEIN,URINE 2+ (NEGATIVE); UROBILINOGEN,URINE 4 MG/DL (0.0-1.0)
[2018-11-30 18:20] LABS: BASOPHILS % (AUTO) 1.5 % (0.0-2.0); EOSINOPHILS % (AUTO) 0.6 % (0.0-3.0); HEMATOCRIT 42.2 % (42.0-52.0); HEMOGLOBIN 14.6 G/DL (14.2-18.0); LYMPHOCYTES % (AUTO) 24.9 % (20.0-45.0); MEAN CORPUSCULAR VOLUME 87 FL (80-99); MONOCYTES % (AUTO) 6.6 % (1.0-10.0); NEUTROPHILS % (AUTO) 66.3 % (45.0-75.0); PLATELET COUNT 125 K/UL (150-450); RED BLOOD COUNT 4.83 M/UL (4.70-6.10); RED CELL DISTRIBUTION WIDTH 12.6 % (11.6-14.8); WHITE BLOOD COUNT 12.4 K/UL (4.8-10.8)
[2018-11-30 18:23] LABS: COLOR,URINE YELLOW
[2018-11-30] MEDS ORDERED: NOVOLOG100 UNIT/5 SQ (18:26)
[2018-11-30] MEDS ORDERED: LANTUS SOL100 UNIT/1 SUBQ (18:26)
[2018-11-30] MEDS ORDERED: ASPIRIN81 MG ORAL (18:27)
--- NOTE | 2018-11-30 18:40 | NUR ---
ED Nurse Note: Resent green and red top. Awaiting results.
--- NOTE | 2018-11-30 18:52 | NUR ---
ED Nurse Note: Gave report to JAKE Sher.
[2018-11-30 19:03] LABS: ANION GAP 8 mmol/L (5-15); BLOOD UREA NITROGEN 14 mg/dL (7-18); CALCIUM 8.2 MG/DL (8.5-10.1); CARBON DIOXIDE 24 MMOL/L (21-32); CHLORIDE 104 MMOL/L (98-107); CREATININE 0.7 MG/DL (0.55-1.30); POTASSIUM 4.1 MMOL/L (3.5-5.1); SODIUM 136 MMOL/L (136-145)
--- NOTE | 2018-11-30 19:07 | NUR ---
HAND-OFF: Report given to JAKE Beebe.
[2018-11-30 19:08] LABS: ALANINE AMINOTRANSFERASE 46 U/L (12-78); ALBUMIN 3.4 G/DL (3.4-5.0); ALBUMIN/GLOBULIN RATIO 1.1 (1.0-2.7); ALKALINE PHOSPHATASE 63 U/L (46-116); ASPARTATE AMINO TRANSFERASE 40 U/L (15-37); BILIRUBIN,TOTAL 0.4 MG/DL (0.2-1.0)
[2018-11-30] MEDS ORDERED: ALPRAZolam 0.5mg tab ORAL PRN (19:15)
[2018-11-30] MEDS ORDERED: Mylanta II UD 30ml ORAL PRN (19:30)
[2018-11-30] MEDS ORDERED: Nitroglycerin Subl 0.4mg tab SL PRN (19:30)
[2018-11-30] MEDS ORDERED: Albuterol/Ipratropium 3ml neb HHN PRN (19:30)
[2018-11-30] MEDS ORDERED: Miralax 17gm pkt ORAL PRN (19:30)
--- NOTE | 2018-11-30 19:45 | NUR ---
ED Nurse Note: Received report from Abiel, report already given to tele prior to shift. patient went up to floor with RNa nd automobile glass technician
--- NOTE | 2018-11-30 19:50 | NUR ---
NURSE NOTES: NEW ADMISSION. Pt arrived to floor at 1930. Admitting Dr Sepulveda/ Dr Pham. Admitting Dx: Uncontrolled Diabetes and dehydration. Pt ambulated on to the bed. heat treat technician was placed and VS were taken. orders were entered by DR Pham. Orders were acknowledged. belongings were reviewed with ER nurse. IV site is c/d/i and running NS @100cc/hr per admitting order. Pt is on accu checks AC+HS. HS sugar 332- pt received 10 units of novolog and 40 units of levemir. Pt is on room air with no sign of sob or resp distress. Bed in lowest locked position, Will continue with plan of care.
[2018-11-30 20:00] VITALS: BP 121/73
[2018-11-30] MEDS: Heparin 5000 units/ml inj SUBQ SCH (20:28)
[2018-11-30] MEDS: Depakote 500mg tab ORAL SCH (20:34)
[2018-11-30] MEDS: Morphine Sulfate 2mg/ml Inj(IV/IM USE ONLY) IVP PRN (20:35)
[2018-11-30] MEDS: NovoLOG Insulin Flexpen SUBQ SCH (20:54)
[2018-11-30] MEDS ORDERED: QUEtiapine 200mg tab ORAL SCH (21:00)
[2018-11-30] MEDS ORDERED: Levemir Flexpen SUBQ SCH (22:00)
--- NOTE | 2018-11-30 22:12 | Emergency Room Report ---
History of Present Illness General Chief Complaint: General Complaint Source: Patient Present Illness HPI Patient is a 38-year-old male presented after increased generalized weakness and increased falling. Patient had prior history of diabetes. Patient had reportedly had increased blood sugars. He is insulin-dependent type 1 he denies any recent fevers. He had prior history of chronic back pain. Patient had previous CVA as well as history of chronic pain. Allergies: Coded Allergies: HALOPERIDOL (Verified Allergy, Unknown, 11/30/18) Patient History Past Medical History: see triage record, DM Reviewed Nursing Documentation: PMH: Agreed; PSxH: Agreed Nursing Documentation-PMH Past Medical History: No History, Except For Hx Hypertension: Yes Hx COPD: Yes Hx Diabetes: Yes Hx Cancer: No Hx Gastrointestinal Problems: Yes Hx Neurological Problems: Yes Hx Cerebrovascular Accident: Yes - Jul 2018 Hx Seizures: Yes Hx Peripheral Neuropathy: Yes Hx Head Trauma: Yes Hx Dizziness: Yes Hx Headaches: Yes Hx Weakness: Yes - left arm, left leg Review of Systems All Other Systems: negative except mentioned in HPI Physical Exam Vital Signs Date Time Temp Pulse Resp B/P (MAP) Pulse Ox O2 Delivery O2 Flow Rate FiO2 11/30/18 17:00 98.8 108 16 151/85 95 Room Air 11/30/18 17:14 97 Sp02 EP Interpretation: reviewed, normal General Appearance: normal inspection, well appearing, no apparent distress, alert, obese, Chronically Ill Head: atraumatic ENT: normal ENT inspection, hearing grossly normal, normal voice Neck: normal inspection, full range of motion, supple, no bony tend Respiratory: normal inspection, lungs clear, normal breath sounds, no respiratory distress, no retraction, no wheezing Cardiovascular #1: regular rate, rhythm, no edema Gastrointestinal: normal inspection, normal bowel sounds, non tender, soft, no guarding, no hernia Genitourinary: no CVA tenderness Musculoskeletal: normal inspection, back normal, normal range of motion Neurologic: normal inspection, alert, oriented x3, responsive, staff weapons officer III-XII nml as tested, speech normal Psychiatric: normal inspection, judgement/insight normal, mood/affect normal Skin: normal inspection, normal color, no rash Medical Decision Making Diagnostic Impression: Primary Impression: Abdominal pain of unknown etiology Additional Impression: Uncontrolled diabetes mellitus ER Course Patient presented for generalized weakness. Differential diagnosis included was not limited to anemia, urinary tract infection, electrolyte abnormality, hypothyroidism, myocardial infarction, myasthenia gravis, dehydration, among others. Because of complexity of patient's case laboratory testing and imaging studies were ordered. EKG interpreted by me showed sinus tachycardia with a rate of [address] or T wave changes. Patient started on IV fluids. He was given IV insulin. Dr. Aniceto Sepulveda was contacted for inpatient management due to primary care physician. Labs Test 11/30/18 17:45 11/30/18 18:35 White Blood Count 12.4 K/UL (4.8-10.8) Red Blood Count 4.83 M/UL (4.70-6.10) Hemoglobin 14.6 G/DL (14.2-18.0) Hematocrit 42.2 % (42.0-52.0) Mean Corpuscular Volume 87 FL (80-99) Mean Corpuscular Hemoglobin 30.3 PG (27.0-31.0) Mean Corpuscular Hemoglobin Concent 34.7 G/DL (32.0-36.0) Red Cell Distribution Width 12.6 % (11.6-14.8) Platelet Count 125 K/UL (150-450) Mean Platelet Volume 10.3 FL (6.5-10.1) Neutrophils (%) (Auto) 66.3 % (45.0-75.0) Lymphocytes (%) (Auto) 24.9 % (20.0-45.0) Monocytes (%) (Auto) 6.6 % (1.0-10.0) Eosinophils (%) (Auto) 0.6 % (0.0-3.0) Basophils (%) (Auto) 1.5 % (0.0-2.0) Urine Color Yellow Urine Appearance Clear Urine pH 7 (4.5-8.0) Urine Specific [place] 1.015 (1.005-1.035) Urine Protein 2+ (NEGATIVE) Urine Glucose (UA) 2+ (NEGATIVE) Urine Ketones Negative (NEGATIVE) Urine Blood Negative (NEGATIVE) Urine Nitrite Negative (NEGATIVE) Urine Bilirubin Negative (NEGATIVE) Urine Urobilinogen 4 MG/DL (0.0-1.0) Urine Leukocyte Esterase 1+ (NEGATIVE) Urine RBC 0-2 /HPF (0 - 0) Urine WBC 2-4 /HPF (0 - 0) Urine Squamous Epithelial Cells None /LPF (NONE/OCC) Urine Bacteria Few /HPF (NONE) Sodium Level 136 MMOL/L (136-145) Potassium Level 4.1 MMOL/L (3.5-5.1) Chloride Level 104 MMOL/L (98-107) Carbon Dioxide Level 24 MMOL/L (21-32) Anion Gap 8 mmol/L (5-15) Blood Urea Nitrogen 14 mg/dL (7-18) Creatinine 0.7 MG/DL (0.55-1.30) Estimat Glomerular Filtration Rate > 60 mL/min (>60) Glucose Level 281 MG/DL (74-106) Calcium Level 8.2 MG/DL (8.5-10.1) Total Bilirubin 0.4 MG/DL (0.2-1.0) Aspartate Amino Transf (AST/SGOT) 40 U/L (15-37) Alanine Aminotransferase (ALT/SGPT) 46 U/L (12-78) Alkaline Phosphatase 63 U/L (46-116) Total Protein 6.4 G/DL (6.4-8.2) Albumin 3.4 G/DL (3.4-5.0) Globulin 3.0 g/dL Albumin/Globulin Ratio 1.1 (1.0-2.7) Acetone Level Negative (NEGATIVE) EKG Diagnostic Results Rate: tachycardiac Rhythm: NSR ST Segments: no acute changes Last Vital Signs Date Time Temp Pulse Resp B/P (MAP) Pulse Ox O2 Delivery O2 Flow Rate FiO2 11/30/18 21:05 98.7 11/30/18 19:46 106 26 99/74 97 Room Air 97 Status: unchanged Disposition: ADMITTED INPATIENT Condition: Serious Referrals: Aniceto Sepulveda DO (PCP) Prakash Martinez MD Nov 30, 2018 22:12
[2018-12-01] VITALS: BP 121/74
[2018-12-01 04:00] VITALS: BP 118/75
[2018-12-01] MEDS: Morphine Sulfate 2mg/ml Inj(IV/IM USE ONLY) IVP PRN ×5 (05:50→22:59)
[2018-12-01] MEDS ORDERED: ALPRAZolam 0.5mg tab ORAL PRN (06:00)
[2018-12-01] MEDS: NovoLOG Insulin Flexpen SUBQ SCH ×7 (06:32→21:00)
--- NOTE | 2018-12-01 07:22 | NUR ---
HAND-OFF: Report given to Carla RN.
--- NOTE | 2018-12-01 07:23 | NUR ---
NURSE NOTES: Pt received from JAKE Lopez alert and oriented x4 with no complaints or s/s of pain, SOB, or n/v. No acute distress. Bed in lowest position, call light and belongings within reach. IV site asymptomatic and patent.
[2018-12-01 08:00] VITALS: BP 112/70
[2018-12-01] MEDS: Depakote 500mg tab ORAL SCH ×2 (08:26→23:00)
[2018-12-01] MEDS: Heparin 5000 units/ml inj SUBQ SCH ×2 (08:32→21:00)
[2018-12-01 08:41] LABS: BASOPHILS % (AUTO) 0.7 % (0.0-2.0); HEMATOCRIT 38.3 % (42.0-52.0); HEMOGLOBIN 13.6 G/DL (14.2-18.0); LYMPHOCYTES % (AUTO) 37.7 % (20.0-45.0); MEAN CORPUSCULAR VOLUME 85 FL (80-99); MONOCYTES % (AUTO) 7.5 % (1.0-10.0); NEUTROPHILS % (AUTO) 51.2 % (45.0-75.0); PLATELET COUNT 179 K/UL (150-450); RED BLOOD COUNT 4.49 M/UL (4.70-6.10); RED CELL DISTRIBUTION WIDTH 12.5 % (11.6-14.8); WHITE BLOOD COUNT 9.3 K/UL (4.8-10.8)
[2018-12-01] MEDS ORDERED: Aspirin Baby 81mg ORAL SCH (09:00)
[2018-12-01 09:13] LABS: ALANINE AMINOTRANSFERASE 47 U/L (12-78); ALBUMIN 3.2 G/DL (3.4-5.0); ALBUMIN/GLOBULIN RATIO 1.2 (1.0-2.7); ALKALINE PHOSPHATASE 60 U/L (46-116); ANION GAP 9 mmol/L (5-15); ASPARTATE AMINO TRANSFERASE 20 U/L (15-37); BILIRUBIN,TOTAL 0.5 MG/DL (0.2-1.0); BLOOD UREA NITROGEN 10 mg/dL (7-18); CALCIUM 8.1 MG/DL (8.5-10.1); CARBON DIOXIDE 25 MMOL/L (21-32); CHLORIDE 108 MMOL/L (98-107); CHOLESTEROL 82 MG/DL (< 200); CREATININE 0.7 MG/DL (0.55-1.30); HDL CHOLESTEROL 25 MG/DL (40-60); PHOSPHORUS 2.9 MG/DL (2.5-4.9); POTASSIUM 3.6 MMOL/L (3.5-5.1); SODIUM 142 MMOL/L (136-145); TRIGLYCERIDES 87 MG/DL (30-150)
--- NOTE | 2018-12-01 10:50 | NUR ---
Social Service Note SW met with patient to assess for homelessness. Patient is alert, oriented and verbally responsive. SW very familiar with this patient from multiple previous admissions. Patient is chronically homeless. Patient was moving between [place] and [place]. Patient receives income however doesn't like paying monthly rent to a board and care or independent living. Patient has been placed in a [facility] program and was unwilling to work with staff in program for housing. Patient returned to the street. Patient has been placed in multiple facilities and then walks away with no alternative housing options. Patient has frequent multiple hospitals and psychiatric facilities. Patient denies any psychiatric crisis at this time. Patient most recently was placed at [facility] 10/08 and walked away from facility. Patient states he is unable to reside with his mother Eda Mckenna [phone] or sister Tram Siddiqui [phone]. Patient didn't want to discuss placement further with SW at this time. Patient states he will discuss with Dr. Sepulveda and Dr. Victor. SW notified Dr. Sepulveda and Dr. Victor. Patient not interested in completing application for bridge/interim housing program from [facility]. Will continue to monitor.
--- NOTE | 2018-12-01 11:31 | Consultation ---
History of Present Illness General Date patient seen: Dec 01, 2018 Chief Complaint: General Complaint Present Illness HPI 38-year-old male with hx of COPD, DM, HTN, CVA, psychosis, presented to ER with cc of generalized weakness and recurrent falling. His BS was critically elevated in ER therefore he is admitted to telemetry for further work up. Allergies: Coded Allergies: HALOPERIDOL (Verified Allergy, Unknown, 11/30/18) Medication History Scheduled Aspirin* (Aspirin*), 81 MG ORAL DAILY, (Reported) Divalproex Sodium* (Depakote*), 500 MG PO Q12HR, (Reported) Escitalopram Oxalate* (Lexapro*), 10 MG ORAL DAILY, (Reported) Insulin Aspart (Novolog), 15 UNIT SQ BEFORE MEALS, (Reported) Insulin Glargine (Lantus), 30 UNITS SUBQ BEDTIME, (Reported) Quetiapine Fumarate* (Seroquel*), 200 MG ORAL BEDTIME, (Reported) Scheduled PRN Alprazolam* (Xanax*), 0.5 MG PO Q6HR PRN for For Anxiety, (Reported) Clonidine Hcl* (Catapres*), 0.1 MG ORAL Q4HR PRN for For High Blood Pressure, ( Reported) Insulin Aspart (Novolog), 0 SQ BEFORE MEALS PRN for Sliding Scale, (Reported) Ipratropium/Albuterol Sulfate (DuoNeb 0.5-3(2.5)mg/3ml), 3 ML HHN Q4HR PRN for Shortness of Breath, (Reported) Discontinued Medications Acetaminophen* (Acetaminophen 325MG Tablet*), 650 MG ORAL Q4H PRN for fever, ( Reported) Discontinued Reason: Pt stopped taking med Divalproex Sodium (Divalproex Sodium), 1,000 MG PO Q12HR, (Reported) Discontinued Reason: Medication dose changed Hydrocodone Bit/Acetaminophen 10-325* ([place] 10-325*), 1 TAB ORAL Q4H PRN for For Pain, (Reported) Discontinued Reason: Pt stopped taking med Methocarbamol (Methocarbamol), 500 MG PO Q8HR PRN for Severe Breakthru Pain (>7) , (Reported) Discontinued Reason: Pt stopped taking med Nitroglycerin (Nitrostat), 0.4 MG SL q5min x3 doses PRN for Prn Chest Pain, ( Reported) Discontinued Reason: Pt stopped taking med Ondansetron* (Zofran*), 4 MG ORAL Q4HR PRN for Nausea & Vomiting, (Reported) Discontinued Reason: Pt stopped taking med Pantoprazole (Pantoprazole), 40 MG ORAL EVERY 12 HOURS, (Reported) Discontinued Reason: Pt stopped taking med Polyethylene Glycol 3350* (Polyethylene Glycol 3350*), 17 GM ORAL BEDTIME PRN for Constipation, (Reported) Discontinued Reason: Pt stopped taking med Temazepam* (Restoril*), 15 MG ORAL BEDTIME PRN for Insomnia, (Reported) Discontinued Reason: Pt stopped taking med Patient History Healthcare decision maker Resuscitation status Full Code Advanced Directive on File No Past Medical/Surgical History Past Medical/Surgical History: (1) Lumbar degenerative disc disease (2) Peripheral neuropathy (3) Diabetes mellitus (4) COPD (chronic obstructive pulmonary disease) (5) CVA (cerebral vascular accident) (6) Noncompliance (7) Gastroparesis due to DM Review of Systems All Other Systems: negative except mentioned in HPI Physical Exam General Appearance: WD/WN Lines, tubes and drains: peripheral HEENT: normocephalic, atraumatic Neck: non-tender, normal alignment Respiratory/Chest: chest wall non-tender, lungs clear Breasts: no masses Cardiovascular/Chest: normal peripheral pulses, normal rate Abdomen: normal bowel sounds, non tender Genitourinary/Rectal: normal genital exam, normal rectal exam Skin Exam: normal pigmentation Neurologic: hypnotherapist II-XII grossly normal Last 24 Hour Vital Signs Date Time Temp Pulse Resp B/P (MAP) Pulse Ox O2 Delivery O2 Flow Rate FiO2 12/01/18 08:00 98.2 79 20 112/70 (84) 96 12/01/18 08:00 73 12/01/18 06:20 97.6 12/01/18 04:00 81 12/01/18 04:00 97.6 80 17 118/75 (89) 99 12/01/18 00:00 98.4 79 18 121/74 (90) 98 12/01/18 00:00 84 11/30/18 22:24 Room Air 11/30/18 20:00 98.6 80 19 121/73 (89) 98 11/30/18 19:46 98.7 106 26 99/74 97 Room Air 97 11/30/18 17:14 106 26 97 11/30/18 17:14 98.7 106 26 99/74 97 Room Air 11/30/18 17:00 98.8 108 16 151/85 95 Room Air Intake and Output 11/30/18 12/01/18 19:00 07:00 Intake Total 1800 ml Output Total 1000 ml Balance 800 ml Intake Oral 800 ml IV Total 1000 ml Output Urine Total 1000 ml # Voids 1 Laboratory Tests Test 11/30/18 17:45 11/30/18 18:35 12/01/18 08:25 12/01/18 10:30 White Blood Count 12.4 K/UL (4.8-10.8) H 9.3 K/UL (4.8-10.8) Red Blood Count 4.83 M/UL (4.70-6.10) 4.49 M/UL (4.70-6.10) L Hemoglobin 14.6 G/DL (14.2-18.0) 13.6 G/DL (14.2-18.0) L Hematocrit 42.2 % (42.0-52.0) 38.3 % (42.0-52.0) L Mean Corpuscular Volume 87 FL (80-99) 85 FL (80-99) Mean Corpuscular Hemoglobin 30.3 PG (27.0-31.0) 30.2 PG (27.0-31.0) Mean Corpuscular Hemoglobin Concent 34.7 G/DL (32.0-36.0) 35.4 G/DL (32.0-36.0) Red Cell Distribution Width 12.6 % (11.6-14.8) 12.5 % (11.6-14.8) Platelet Count 125 K/UL (150-450) L 179 K/UL (150-450) Mean Platelet Volume 10.3 FL (6.5-10.1) H 8.5 FL (6.5-10.1) Neutrophils (%) (Auto) 66.3 % (45.0-75.0) 51.2 % (45.0-75.0) Lymphocytes (%) (Auto) 24.9 % (20.0-45.0) 37.7 % (20.0-45.0) Monocytes (%) (Auto) 6.6 % (1.0-10.0) 7.5 % (1.0-10.0) Eosinophils (%) (Auto) 0.6 % (0.0-3.0) 3.0 % (0.0-3.0) Basophils (%) (Auto) 1.5 % (0.0-2.0) 0.7 % (0.0-2.0) Urine Color Yellow Urine Appearance Clear Urine pH 7 (4.5-8.0) Urine Specific Nelson 1.015 (1.005-1.035) Urine Protein 2+ (NEGATIVE) H Urine Glucose (UA) 2+ (NEGATIVE) H Urine Ketones Negative (NEGATIVE) Urine Blood Negative (NEGATIVE) Urine Nitrite Negative (NEGATIVE) Urine Bilirubin Negative (NEGATIVE) Urine Urobilinogen 4 MG/DL (0.0-1.0) H Urine Leukocyte Esterase 1+ (NEGATIVE) H Urine RBC 0-2 /HPF (0 - 0) H Urine WBC 2-4 /HPF (0 - 0) Urine Squamous Epithelial Cells None /LPF (NONE/OCC) Urine Bacteria Few /HPF (NONE) Sodium Level 136 MMOL/L (136-145) 142 MMOL/L (136-145) Potassium Level 4.1 MMOL/L (3.5-5.1) 3.6 MMOL/L (3.5-5.1) Chloride Level 104 MMOL/L (98-107) 108 MMOL/L (98-107) H Carbon Dioxide Level 24 MMOL/L (21-32) 25 MMOL/L (21-32) Anion Gap 8 mmol/L (5-15) 9 mmol/L (5-15) Blood Urea Nitrogen 14 mg/dL (7-18) 10 mg/dL (7-18) Creatinine 0.7 MG/DL (0.55-1.30) 0.7 MG/DL (0.55-1.30) Estimat Glomerular Filtration Rate > 60 mL/min (>60) > 60 mL/min (>60) Glucose Level 281 MG/DL (74-106) H 67 MG/DL (74-106) #L Calcium Level 8.2 MG/DL (8.5-10.1) L 8.1 MG/DL (8.5-10.1) L Total Bilirubin 0.4 MG/DL (0.2-1.0) 0.5 MG/DL (0.2-1.0) Aspartate Amino Transf (AST/SGOT) 40 U/L (15-37) H 20 U/L (15-37) Alanine Aminotransferase (ALT/SGPT) 46 U/L (12-78) 47 U/L (12-78) Alkaline Phosphatase 63 U/L (46-116) 60 U/L (46-116) Total Protein 6.4 G/DL (6.4-8.2) 5.9 G/DL (6.4-8.2) L Albumin 3.4 G/DL (3.4-5.0) 3.2 G/DL (3.4-5.0) L Globulin 3.0 g/dL 2.7 g/dL Albumin/Globulin Ratio 1.1 (1.0-2.7) 1.2 (1.0-2.7) Acetone Level Negative (NEGATIVE) Hemoglobin A1c Pending Phosphorus Level 2.9 MG/DL (2.5-4.9) Magnesium Level 1.9 MG/DL (1.8-2.4) Triglycerides Level 87 MG/DL (30-150) Cholesterol Level 82 MG/DL (< 200) LDL Cholesterol 49 mg/dL (<100) HDL Cholesterol 25 MG/DL (40-60) L Cholesterol/HDL Ratio 3.3 (3.3-4.4) Thyroid Stimulating Hormone (TSH) 2.581 uiU/mL (0.358-3.740) Arterial Blood pH 7.414 (7.350-7.450) Arterial Blood Partial Pressure CO2 32.7 mmHg (35.0-45.0) L Arterial Blood Partial Pressure O2 88.9 mmHg (75.0-100.0) Arterial Blood HCO3 20.4 mmol/L (22.0-26.0) L Arterial Blood Oxygen Saturation 96.6 % (95-100) Arterial Blood Base Excess -3.2 (-2-2) L Anson Test Positive Height (Feet): 5 Height (Inches): 11.00 Weight (Pounds): 267 Medications Current Medications Medications (Trade) Dose Ordered Sig/Sofia Route PRN Reason Start Time Stop Time Status Last Admin Dose Admin Acetaminophen (Tylenol) 650 mg Q4H PRN ORAL fever (temp>100.5F) 11/30/18 19:30 12/30/18 19:29 Al Hydroxide/Mg Hydroxide (Mylanta II) 30 ml Q6H PRN ORAL dyspepsia 11/30/18 19:30 12/30/18 19:29 Albuterol/ Ipratropium (Albuterol/ Ipratropium) 3 ml Q4H PRN HHN Shortness of Breath 11/30/18 19:30 12/05/18 19:29 Alprazolam (Xanax) 1 mg Q6H PRN ORAL For Anxiety 12/01/18 06:00 12/08/18 05:59 Aspirin (ASA) 81 mg DAILY ORAL 12/01/18 09:00 12/31/18 08:59 12/01/18 08:26 Clonidine HCl (Catapres Tab) 0.1 mg Q4H PRN ORAL sbp more than 160 11/30/18 19:30 12/30/18 19:29 Dextrose (Dextrose 50%) 25 ml Q30M PRN IV Hypoglycemia 11/30/18 21:45 12/30/18 21:44 Dextrose (Dextrose 50%) 50 ml Q30M PRN IV Hypoglycemia 11/30/18 21:45 12/30/18 21:44 Divalproex Sodium (Depakote) 500 mg Q12HR ORAL 11/30/18 21:00 12/30/18 20:59 12/01/18 08:26 Escitalopram Oxalate (Lexapro) 10 mg DAILY ORAL 12/01/18 09:00 12/31/18 08:59 12/01/18 08:26 Heparin Sodium (Porcine) (Heparin 5000 units/ml) 5,000 units EVERY 12 HOURS SUBQ 11/30/18 21:00 12/30/18 20:59 Insulin Aspart (NovoLOG) BEFORE MEALS AND HS SUBQ 11/30/18 21:00 12/30/18 20:59 12/01/18 06:33 Insulin Aspart (NovoLOG) 15 units NOVOTIAC SUBQ 12/01/18 06:30 12/31/18 06:29 12/01/18 06:32 Insulin Detemir (Levemir) 40 units BEDTIME SUBQ 11/30/18 22:00 12/30/18 21:59 11/30/18 23:02 Morphine Sulfate (Morphine Sulfate) 2 mg Q4H PRN IVP severe pain 7-10 11/30/18 19:30 12/07/18 19:29 12/01/18 09:59 Nitroglycerin (Ntg) 0.4 mg Q5M X 3 DOSES PRN SL Prn Chest Pain 11/30/18 19:30 12/30/18 19:29 Ondansetron HCl (Zofran) 4 mg Q6H PRN IVP Nausea & Vomiting 11/30/18 19:30 12/30/18 19:29 12/01/18 08:26 Polyethylene Glycol (Miralax) 17 gm HSPRN PRN ORAL Constipation 11/30/18 19:30 12/30/18 19:29 Quetiapine Fumarate (SEROquel) 200 mg BEDTIME ORAL 11/30/18 21:00 12/30/18 20:59 11/30/18 20:26 Sodium Chloride 1,000 ml @ 100 mls/hr Q10H IVLG 11/30/18 19:30 12/30/18 19:29 12/01/18 05:50 Temazepam (Restoril) 15 mg HSPRN PRN ORAL Insomnia 11/30/18 19:30 12/07/18 19:29 Assessment/Plan Problem List: (1) Recurrent falls ICD Codes: R29.6 - Repeated falls SNOMED: 815134939 (2) Uncontrolled diabetes mellitus ICD Codes: E11.65 - Type 2 diabetes mellitus with hyperglycemia SNOMED: 17075992, 534584541 (3) CVA (cerebral vascular accident) ICD Codes: I63.9 - Cerebral infarction, unspecified SNOMED: 922280550 (4) COPD (chronic obstructive pulmonary disease) ICD Codes: J44.9 - Chronic obstructive pulmonary disease, unspecified SNOMED: 40323133 Assessment/Plan sliding scale diabetic diet diabetic education respiratory treatment symptomatic treatment check electrolytes check HemA1C Lasahnda Pham MD Dec 01, 2018 11:31
[2018-12-01 12:00] VITALS: BP 138/85
--- NOTE | 2018-12-01 12:06 | NUR ---
CASE MANAGEMENT: REVIEW 38/M PRESENTED TO ED FROM STREETS CC: VOMITING . SI: UNCONTROLLED DM . DEHYDRATION T 98.8 HR 108 RR 26 BP 99/74 SAT 95% ROOM AIR WBC 12.4 GLUCOSE 281 ALT 40 IS: NS IVF BOLUS X1 NOVOLIN R 8UNITS IV X1 INTERQUAL CRITERIA MET: PATIENT ADMITTED TO MED/SURG UNIT 11/30/2018 DCP: PATIENT REPORTS BEING HOMELESS
--- NOTE | 2018-12-01 13:22 | Diagnostic Imaging Report ---
Indication: Dyspnea Comparison: 07/29/2018 A single view chest radiograph was obtained. Findings: Cardiomediastinal appearance is within normal limits for age. The lungs are clear. Pulmonary vascularity is appropriate. The diaphragmatic contour is smooth and costophrenic angles are sharp. No pleural effusions are identified. The bones are unremarkable. Impression: No acute findings
--- NOTE | 2018-12-01 15:45 | NUR ---
TRANSFER TO FLOOR: Patient transferred to [facility]-, per Dr. Pham. Report given to JAKE Blanchard. Belongings and medications given to JAKE Blanchard. Family and or S/O informed of transfer.
[2018-12-01 16:00] VITALS: BP 141/87
--- NOTE | 2018-12-01 16:00 | NUR ---
NURSE NOTES: Patient transferred to floor via bed at 1545. Received report from Osbaldo JOSEPH. Patient stable on arrival, no s/s acute distress noted. IV intact and asymptomatic, running IVF per order. Belongings checked and verified at bedside. Skin intact. Fall and seizure precautions maintained, bed rails padded. Side rails upx3, bed low and locked, call light in reach. Will continue to monitor.
[2018-12-01] MEDS ORDERED: Mylanta II UD 30ml ORAL PRN (16:30)
[2018-12-01] MEDS ORDERED: Albuterol/Ipratropium 3ml neb HHN PRN (16:30)
[2018-12-01] MEDS ORDERED: Nitroglycerin Subl 0.4mg tab SL PRN (16:30)
--- NOTE | 2018-12-01 17:42 | NUR ---
NURSE NOTES: Insulin pen just arrived from pharmacy. Will administer insulin as ordered.
--- NOTE | 2018-12-01 18:00 | Consultation ---
DATE OF CONSULTATION: 12/01/2018 INITIAL PSYCHIATRIC EVALUATION: CONSULTING PHYSICIAN: Charmaine Victor M.D. HISTORY OF PRESENT ILLNESS: This is a 38-year-old male patient with uncontrolled dizziness. He has uncontrolled dizziness and mood lability. He has got no logical plan for his own self-care, but this patient came in because he had overlying diagnosis of schizoaffective, bipolar type. So, his attending has requested daily psychiatric consultation because this patient has mood lability, worsened by stress of his medical illness. I saw and assessed the patient at bedside. He says, "I'm very anxious my Xanax. I don't know what to do." MEDICAL PROBLEMS: He has diabetes, dizziness, neuropathy. ALLERGIES: To Haldol. PSYCHOTROPIC MEDICATIONS ON ADMISSION: Seroquel 200 mg at bedtime, Depakote 500 twice a day. SUBSTANCE USE HISTORY: Denies any recent drug or alcohol use. FAMILY PSYCHIATRIC HISTORY: Denies. PAIN ASSESSMENT: 01/02 pain. DEVELOPMENTAL PROBLEMS: None. SOCIAL HISTORY: He is homeless. Financially supported by [employer] and Medicare. PSYCHIATRIC HISTORY: Schizoaffective, bipolar type. Multiple psychiatric admissions. STRENGTHS: He is motivated to get better. He is healthy. WEAKNESSES: He is impulsive and no support system. MENTAL STATUS EXAMINATION: This is a 38-year-old male. Appearance is disheveled. Attitude, irritable and agitated. Affect, guarded and restricted. Intellect poor. Mood, depressed. Motor activity, psychomotor agitation. Attention span is poor. Orientation x2. Speech is pressured. Thought process, disorganized and logical. Thought content, auditory hallucinations and paranoid delusions. Insight and judgment is poor. DIAGNOSES: 1. Schizoaffective, bipolar type. 2. Medical, dizziness. 3. Psychosocial stressors, financial. PLAN: I am going to continue this patient on Depakote 500 twice a day to stabilize his mood and Seroquel 200 mg at bedtime for insomnia and mood stabilization. I will also provide him with 20 minutes of cognitive behavioral therapy to help him identify automatic negative thoughts and help him convert those negative thoughts to more positive thoughts to reduce depression, anxiety, and suicidality. Chart reviewed. Discussed with staff. Seen and assessed in his room. 20 minutes of cognitive behavioral therapy provided. Charmaine Victor M.D. DR: SHELIA JOB#: [id number] CC:
--- NOTE | 2018-12-01 18:03 | Cardiology Report ---
APPROVED REPORT EKG Measurement Heart [id number] Sinus tachycardia Otherwise normal ECG
--- NOTE | 2018-12-01 18:30 | History and Physical Report ---
DATE OF ADMISSION: 11/30/2018 TIME SEEN: 4 p.m. CONSULTANTS: 1. Tavo Malhotra M.D. 2. Lashanda Pham M.D. 3. Charmaine Victor M.D. CHIEF COMPLAINT: Diabetes, hyperglycemia, leukocytosis, nausea and vomiting, psych history. BRIEF HISTORY: This is a 38-year-old male from [facility]. Apparently went was arrested overnight, facility refused to take him back. The patient was sent to [facility], diagnosed with diabetes, hyperglycemia, leukocytosis, admitted to medical floor for further treatment. Currently, calm, in bed. No complaint. No chest pain. No shortness of breath. No nausea, vomiting, or diarrhea. PAST MEDICAL HISTORY: Includes COPD, psych history, CVA, and seizure. PAST SURGICAL HISTORY: Neck. MEDICATIONS: Include aspirin, Lexapro, Depakote, heparin, Levemir, MiraLAX, NovoLog, Mylanta, Xanax, morphine. ALLERGIES: Haldol. SOCIAL HISTORY: Positive smoking. No alcohol. No intravenous drug abuse. FAMILY HISTORY: Noncontributory. PHYSICAL EXAMINATION: GENERAL: Calm in bed, oriented x3, no acute distress. VITAL SIGNS: Temperature is 98 degrees, pulse 98, respiratory rate 19, blood pressure 141/87. CARDIOVASCULAR: No murmur. LUNGS: Distant and clear. ABDOMEN: Bowel sound positive. Nontender. Nondistended. EXTREMITIES: No cyanosis or edema. NEUROLOGIC: The patient moves all extremities, slightly weak. LABORATORY DATA: Show initial white count 12.4, now 9.3, hemoglobin and hematocrit 12.6/30, otherwise CBC is normal. BMP show chloride is 108, glucose 67, initially was 281. Albumin 3.2. ASSESSMENT: 1. Diabetes. 2. Hyperglycemia. 3. Leukocytosis which has resolved. 4. Nausea and vomiting. 5. Malnutrition. 6. Psych history. 7. COPD. 8. CVA. 9. Seizure. PLAN: 1. Resume home medications. 2. Blood sugar control. 3. O2 and pulmonary treatment as needed. 4. Seizure control. 5. Dietary followup. 6. CBC and BMP in the morning. 7. Discharge plan. 8. We will continue to follow the patient. Aniceto Sepulveda D.O. DR: Jordan JOB#: [id number] CC:
--- NOTE | 2018-12-01 19:00 | NUR ---
Pt received in stable condition. Pt sitting in semi-fowlers with padded side rails, upx3. Bed locked, in lowest position. Call light is within reach as well as personal belongings including his phone. Pt in no acute distress. Pt was educated to call us using the call light for assistance. Addendum: 12/02/18 at [address] RN Fall precautions instituted and maintained. Skin intact. Iv site, patent, intact with IVF running NS at 100 ml./h.
--- NOTE | 2018-12-01 19:22 | NUR ---
HAND-OFF: Report given to Lizzie JOSEPH. Patient in stable condition.
[2018-12-01 20:00] VITALS: BP 118/78
[2018-12-01] MEDS ORDERED: Levemir Flexpen SUBQ SCH (21:00)
[2018-12-01] MEDS ORDERED: Miralax 17gm pkt ORAL PRN (21:00)
--- NOTE | 2018-12-01 22:00 | NUR ---
NURSE NOTE: Pt refused heparin stating he had "bleeding earlier." No s/sx of bleeding, bruising observed upon assessment. Pt educated on purpose of heparin for anticoagulation, DVT prophylaxis.
[2018-12-01] MEDS: QUEtiapine 200mg tab ORAL SCH (22:59)
[2018-12-02] VITALS: BP 111/68
[2018-12-02] MEDS: Morphine Sulfate 2mg/ml Inj(IV/IM USE ONLY) IVP PRN ×6 (02:56→20:06)
[2018-12-02 04:00] VITALS: BP 121/57
[2018-12-02] MEDS: NovoLOG Insulin Flexpen SUBQ SCH ×7 (06:30→20:32)
--- NOTE | 2018-12-02 06:53 | General Progress Note ---
Assessment/Plan Problem List: (1) COPD (chronic obstructive pulmonary disease) ICD Codes: J44.9 - Chronic obstructive pulmonary disease, unspecified SNOMED: 90851855 (2) Diabetes mellitus ICD Codes: E11.9 - Diabetes mellitus SNOMED: 90102092 (3) Peripheral neuropathy ICD Codes: G62.9 - Peripheral neuropathy SNOMED: 02265122 Assessment/Plan reduce Levemir to 30 units qhs reduce Novolog to 10 units ac tid + SSI Subjective Allergies: Coded Allergies: HALOPERIDOL (Verified Allergy, Unknown, 11/30/18) All Systems: reviewed and negative except above Subjective events noted Objective Last 24 Hour Vital Signs Date Time Temp Pulse Resp B/P (MAP) Pulse Ox O2 Delivery O2 Flow Rate FiO2 12/02/18 04:00 98.2 79 22 121/57 (78) 95 12/02/18 00:00 98.5 80 20 111/68 (82) 100 12/01/18 21:00 Room Air 12/01/18 20:00 98.7 81 20 118/78 (91) 98 12/01/18 19:26 98.3 12/01/18 16:00 98.3 98 19 141/87 (105) 96 12/01/18 12:00 90 12/01/18 12:00 98.8 96 19 138/85 (102) 95 12/01/18 09:00 Room Air 12/01/18 08:00 98.2 79 20 112/70 (84) 96 12/01/18 08:00 73 Intake and Output 12/01/18 12/02/18 19:00 07:00 Intake Total 1134 ml 2700 ml Output Total 2200 ml 3700 ml Balance -1066 ml -1000 ml Intake Oral 834 ml IV Total 300 ml 1100 ml Other 1600 ml Output Urine Total 2200 ml 3700 ml # Voids 3 1 # Bowel Movements 1 Laboratory Tests 12/01/18 08:25: White Blood Count 9.3, Red Blood Count 4.49L, Hemoglobin 13.6L, Hematocrit 38.3L , Mean Corpuscular Volume 85, Mean Corpuscular Hemoglobin 30.2, Mean Corpuscular Hemoglobin Concent 35.4, Red Cell Distribution Width 12.5, Platelet Count 179, Mean Platelet Volume 8.5, Neutrophils (%) (Auto) 51.2, Lymphocytes (% ) (Auto) 37.7, Monocytes (%) (Auto) 7.5, Eosinophils (%) (Auto) 3.0, Basophils ( %) (Auto) 0.7, Sodium Level 142, Potassium Level 3.6, Chloride Level 108H, Carbon Dioxide Level 25, Anion Gap 9, Blood Urea Nitrogen 10, Creatinine 0.7, Estimat Glomerular Filtration Rate > 60, Glucose Level 67#L, Hemoglobin A1c 8.3H , Calcium Level 8.1L, Phosphorus Level 2.9, Magnesium Level 1.9, Total Bilirubin 0.5, Aspartate Amino Transf (AST/SGOT) 20, Alanine Aminotransferase ( ALT/SGPT) 47, Alkaline Phosphatase 60, Total Protein 5.9L, Albumin 3.2L, Globulin 2.7, Albumin/Globulin Ratio 1.2, Triglycerides Level 87, Cholesterol Level 82, LDL Cholesterol 49, HDL Cholesterol 25L, Cholesterol/HDL Ratio 3.3, Thyroid Stimulating Hormone (TSH) 2.581 12/01/18 10:30: Arterial Blood pH 7.414, Arterial Blood Partial Pressure CO2 32.7L, Arterial Blood Partial Pressure O2 88.9, Arterial Blood HCO3 20.4L, Arterial Blood Oxygen Saturation 96.6, Arterial Blood Base Excess -3.2L, Anson Test Positive Height (Feet): 5 Height (Inches): 11.00 Weight (Pounds): 267 General Appearance: no apparent distress Neck: normal alignment Cardiovascular: normal rate Respiratory/Chest: normal breath sounds Abdomen: normal bowel sounds Objective Current Medications Medications (Trade) Dose Ordered Sig/Sofia Route PRN Reason Start Time Stop Time Status Last Admin Dose Admin Acetaminophen (Tylenol) 650 mg Q4H PRN ORAL fever (temp>100.5F) 12/01/18 16:30 12/30/18 16:29 Al Hydroxide/Mg Hydroxide (Mylanta II) 30 ml Q6H PRN ORAL dyspepsia 12/01/18 16:30 12/30/18 16:29 Albuterol/ Ipratropium (Albuterol/ Ipratropium) 3 ml Q4H PRN HHN Shortness of Breath 12/01/18 16:30 12/05/18 16:29 Alprazolam (Xanax) 1 mg Q6H PRN ORAL For Anxiety 12/01/18 16:30 12/08/18 16:29 Aspirin (ASA) 81 mg DAILY ORAL 12/02/18 09:00 12/31/18 08:59 Clonidine HCl (Catapres Tab) 0.1 mg Q4H PRN ORAL sbp more than 160 12/01/18 16:30 12/30/18 16:29 Dextrose (Dextrose 50%) 25 ml Q30M PRN IV Hypoglycemia 12/01/18 16:15 12/30/18 21:44 Dextrose (Dextrose 50%) 50 ml Q30M PRN IV Hypoglycemia 12/01/18 16:15 12/30/18 21:44 Divalproex Sodium (Depakote) 500 mg Q12HR ORAL 12/01/18 21:00 12/30/18 20:59 12/01/18 23:00 Escitalopram Oxalate (Lexapro) 10 mg DAILY ORAL 12/02/18 09:00 12/31/18 08:59 Heparin Sodium (Porcine) (Heparin 5000 units/ml) 5,000 units EVERY 12 HOURS SUBQ 12/01/18 21:00 12/30/18 20:59 Insulin Aspart (NovoLOG) BEFORE MEALS AND HS SUBQ 12/01/18 17:30 12/30/18 17:29 12/01/18 17:45 Insulin Aspart (NovoLOG) 15 units NOVOTIAC SUBQ 12/01/18 16:50 12/31/18 06:29 12/01/18 17:45 Insulin Detemir (Levemir) 40 units BEDTIME SUBQ 12/01/18 21:00 12/30/18 21:59 12/01/18 22:04 Morphine Sulfate (Morphine Sulfate) 2 mg Q4H PRN IVP Severe Pain (Pain Scale 7-10) 12/01/18 16:30 12/07/18 16:29 12/02/18 02:56 Nitroglycerin (Ntg) 0.4 mg Q5M X 3 DOSES PRN SL Prn Chest Pain 12/01/18 16:30 12/30/18 16:29 Ondansetron HCl (Zofran) 4 mg Q6H PRN IVP Nausea & Vomiting 12/01/18 16:30 12/30/18 16:29 12/01/18 22:59 Polyethylene Glycol (Miralax) 17 gm HSPRN PRN ORAL Constipation 12/01/18 21:00 12/30/18 20:59 Quetiapine Fumarate (SEROquel) 200 mg BEDTIME ORAL 12/01/18 21:00 12/30/18 20:59 12/01/18 22:59 Sodium Chloride 1,000 ml @ 100 mls/hr Q10H IVLG 12/01/18 16:15 12/30/18 19:29 12/01/18 23:02 Temazepam (Restoril) 15 mg HSPRN PRN ORAL Insomnia 12/01/18 21:00 12/07/18 20:59 Item Value Date Time Bedside Blood Glucose 104 mg/dl 12/02/18 0630 Bedside Blood Glucose 104 mg/dl 12/01/18 2217 Bedside Blood Glucose 120 mg/dl 12/01/18 1745 Bedside Blood Glucose 127 mg/dl H 12/01/18 1153 Bedside Blood Glucose 115 mg/dl 12/01/18 0633 Bedside Blood Glucose 332 mg/dl H 11/30/18 2302 Tavo Malhotra MD Dec 02, 2018 06:53
--- NOTE | 2018-12-02 07:18 | NUR ---
HANDOFF- NURSE Pt endorsed to JAKE Parada. Pt was resting after receiving last pain med dose. Bed is locked in lowest op Addendum: 12/02/18 at [address] RN Bed locked, in lowest position, side rails upx3, fall precautions instituted. Seizure precautions and padded side rails.
[2018-12-02 08:00] VITALS: BP 110/61
--- NOTE | 2018-12-02 08:04 | NUR ---
NURSE NOTES: Received report from JAKE Samuel. Pt is in the bed, eating breakfast, AAO. On the RA. No s.s of respiratory distress or discomfort noted. Bed is in the lowest position. Call light is within the reach. Will continue to monitor
[2018-12-02] MEDS: Depakote 500mg tab ORAL SCH ×2 (08:39→20:40)
[2018-12-02] MEDS: Aspirin Baby 81mg ORAL SCH (08:39)
[2018-12-02] MEDS: Heparin 5000 units/ml inj SUBQ SCH ×2 (08:40→21:00)
[2018-12-02 09:25] LABS: BASOPHILS % (AUTO) 0.5 % (0.0-2.0); EOSINOPHILS % (AUTO) 2.7 % (0.0-3.0); HEMATOCRIT 38.1 % (42.0-52.0); HEMOGLOBIN 13.6 G/DL (14.2-18.0); LYMPHOCYTES % (AUTO) 32.4 % (20.0-45.0); MEAN CORPUSCULAR VOLUME 86 FL (80-99); MONOCYTES % (AUTO) 7.2 % (1.0-10.0); NEUTROPHILS % (AUTO) 57.2 % (45.0-75.0); PLATELET COUNT 173 K/UL (150-450); RED BLOOD COUNT 4.42 M/UL (4.70-6.10); RED CELL DISTRIBUTION WIDTH 12.6 % (11.6-14.8); WHITE BLOOD COUNT 8.4 K/UL (4.8-10.8)
[2018-12-02 09:40] LABS: ANION GAP 8 mmol/L (5-15); BLOOD UREA NITROGEN 11 mg/dL (7-18); CALCIUM 8.8 MG/DL (8.5-10.1); CARBON DIOXIDE 26 MMOL/L (21-32); CHLORIDE 105 MMOL/L (98-107); CREATININE 0.9 MG/DL (0.55-1.30); POTASSIUM 3.5 MMOL/L (3.5-5.1); SODIUM 139 MMOL/L (136-145)
--- NOTE | 2018-12-02 10:12 | NUR ---
REHAB MED PT NOTE CONSULT NIC MAR, PATIENT AT BASELINE LEVEL OF FUNCTION. NO SKILLED NEEDS. DC PT ORDER. TIBURCIO PONCE PT DPT Addendum: 12/02/18 at 1012 by TIBURCIO PONCE PT Amended: Links added.
[2018-12-02 12:00] VITALS: BP 121/72
--- NOTE | 2018-12-02 12:11 | Pulmonology Progress Note ---
Assessment/Plan Problems: (1) Recurrent falls (2) Uncontrolled diabetes mellitus (3) CVA (cerebral vascular accident) (4) COPD (chronic obstructive pulmonary disease) Assessment/Plan pt , OT check sputum add abx for bronchitis check electrolytes Subjective ROS Limited/Unobtainable: No Constitutional: Reports: no symptoms Allergies: Coded Allergies: HALOPERIDOL (Verified Allergy, Unknown, 11/30/18) Objective Last 24 Hour Vital Signs Date Time Temp Pulse Resp B/P (MAP) Pulse Ox O2 Delivery O2 Flow Rate FiO2 12/02/18 09:00 Room Air 12/02/18 08:00 98.4 79 19 110/61 (77) 95 12/02/18 04:00 98.2 79 22 121/57 (78) 95 12/02/18 00:00 98.5 80 20 111/68 (82) 100 12/01/18 21:00 Room Air 12/01/18 20:00 98.7 81 20 118/78 (91) 98 12/01/18 19:26 98.3 12/01/18 16:00 98.3 98 19 141/87 (105) 96 Intake and Output 12/01/18 12/02/18 19:00 07:00 Intake Total 1134 ml 2700 ml Output Total 2200 ml 3700 ml Balance -1066 ml -1000 ml Intake Oral 834 ml IV Total 300 ml 1100 ml Other 1600 ml Output Urine Total 2200 ml 3700 ml # Voids 3 1 # Bowel Movements 1 General Appearance: WD/WN HEENT: normocephalic Respiratory/Chest: chest wall non-tender, lungs clear Cardiovascular: normal peripheral pulses, normal rate Abdomen: normal bowel sounds, soft, non tender Extremities: no cyanosis Skin: no rash Microbiology Date/Time Source Procedure Growth Status 11/30/18 18:40 Rectum VRE Culture Pending Resulted 11/30/18 18:40 Rectum - Preliminary Resulted Laboratory Tests 12/02/18 08:35: White Blood Count 8.4, Red Blood Count 4.42L, Hemoglobin 13.6L, Hematocrit 38.1L , Mean Corpuscular Volume 86, Mean Corpuscular Hemoglobin 30.7, Mean Corpuscular Hemoglobin Concent 35.6, Red Cell Distribution Width 12.6, Platelet Count 173, Mean Platelet Volume 8.9, Neutrophils (%) (Auto) 57.2, Lymphocytes (% ) (Auto) 32.4, Monocytes (%) (Auto) 7.2, Eosinophils (%) (Auto) 2.7, Basophils ( %) (Auto) 0.5, Sodium Level 139, Potassium Level 3.5, Chloride Level 105, Carbon Dioxide Level 26, Anion Gap 8, Blood Urea Nitrogen 11, Creatinine 0.9, Estimat Glomerular Filtration Rate > 60, Glucose Level 159H, Calcium Level 8.8 Current Medications Medications (Trade) Dose Ordered Sig/Sofia Route PRN Reason Start Time Stop Time Status Last Admin Dose Admin Acetaminophen (Tylenol) 650 mg Q4H PRN ORAL fever (temp>100.5F) 12/01/18 16:30 12/30/18 16:29 Al Hydroxide/Mg Hydroxide (Mylanta II) 30 ml Q6H PRN ORAL dyspepsia 12/01/18 16:30 12/30/18 16:29 Albuterol/ Ipratropium (Albuterol/ Ipratropium) 3 ml Q4H PRN HHN Shortness of Breath 12/01/18 16:30 12/05/18 16:29 Alprazolam (Xanax) 1 mg Q6H PRN ORAL For Anxiety 12/01/18 16:30 12/08/18 16:29 Aspirin (ASA) 81 mg DAILY ORAL 12/02/18 09:00 12/31/18 08:59 12/02/18 08:39 Clonidine HCl (Catapres Tab) 0.1 mg Q4H PRN ORAL sbp more than 160 12/01/18 16:30 12/30/18 16:29 Dextrose (Dextrose 50%) 25 ml Q30M PRN IV Hypoglycemia 12/01/18 16:15 12/30/18 21:44 Dextrose (Dextrose 50%) 50 ml Q30M PRN IV Hypoglycemia 12/01/18 16:15 12/30/18 21:44 Divalproex Sodium (Depakote) 500 mg Q12HR ORAL 12/01/18 21:00 12/30/18 20:59 12/02/18 08:39 Escitalopram Oxalate (Lexapro) 10 mg DAILY ORAL 12/02/18 09:00 12/31/18 08:59 12/02/18 08:39 Heparin Sodium (Porcine) (Heparin 5000 units/ml) 5,000 units EVERY 12 HOURS SUBQ 2/6/19 21:00 12/30/18 20:59 Insulin Aspart (NovoLOG) BEFORE MEALS AND HS SUBQ 12/01/18 17:30 12/30/18 17:29 12/01/18 17:45 Insulin Aspart (NovoLOG) 10 units NOVOTIAC SUBQ 12/02/18 11:50 12/31/18 06:29 Insulin Detemir (Levemir) 30 units BEDTIME SUBQ 12/02/18 21:00 12/30/18 21:59 Morphine Sulfate (Morphine Sulfate) 2 mg Q4H PRN IVP Severe Pain (Pain Scale 7-10) 12/01/18 16:30 12/07/18 16:29 12/02/18 11:41 Nitroglycerin (Ntg) 0.4 mg Q5M X 3 DOSES PRN SL Prn Chest Pain 12/01/18 16:30 12/30/18 16:29 Ondansetron HCl (Zofran) 4 mg Q6H PRN IVP Nausea & Vomiting 12/01/18 16:30 12/30/18 16:29 12/02/18 08:43 Polyethylene Glycol (Miralax) 17 gm HSPRN PRN ORAL Constipation 12/01/18 21:00 12/30/18 20:59 Quetiapine Fumarate (SEROquel) 200 mg BEDTIME ORAL 12/01/18 21:00 12/30/18 20:59 12/01/18 22:59 Sodium Chloride 1,000 ml @ 100 mls/hr Q10H IVLG 12/01/18 16:15 12/30/18 19:29 12/02/18 08:46 Temazepam (Restoril) 15 mg HSPRN PRN ORAL Insomnia 12/01/18 21:00 12/07/18 20:59 Lashanda Pham MD Dec 02, 2018 12:11
[2018-12-02] MEDS ORDERED: Promethazine/Codeine 5ml UD ORAL PRN (12:15)
--- NOTE | 2018-12-02 12:28 | General Progress Note ---
Assessment/Plan Problem List: (1) COPD (chronic obstructive pulmonary disease) ICD Codes: J44.9 - Chronic obstructive pulmonary disease, unspecified SNOMED: 97780228 (2) Diabetes mellitus ICD Codes: E11.9 - Diabetes mellitus SNOMED: 66204610 (3) CVA (cerebral vascular accident) ICD Codes: I63.9 - Cerebral infarction, unspecified SNOMED: 386043693 (4) Uncontrolled seizures ICD Codes: R56.9 - Unspecified convulsions SNOMED: 75054689 Status: unchanged Assessment/Plan pt diet bs control cbc bmp am dc plan snf Subjective Constitutional: Reports: weakness Allergies: Coded Allergies: HALOPERIDOL (Verified Allergy, Unknown, 11/30/18) All Systems: reviewed and negative except above Subjective tired in bed Objective Last 24 Hour Vital Signs Date Time Temp Pulse Resp B/P (MAP) Pulse Ox O2 Delivery O2 Flow Rate FiO2 12/02/18 09:00 Room Air 12/02/18 08:00 98.4 79 19 110/61 (77) 95 12/02/18 04:00 98.2 79 22 121/57 (78) 95 12/02/18 00:00 98.5 80 20 111/68 (82) 100 12/01/18 21:00 Room Air 12/01/18 20:00 98.7 81 20 118/78 (91) 98 12/01/18 19:26 98.3 12/01/18 16:00 98.3 98 19 141/87 (105) 96 Intake and Output 12/01/18 12/02/18 19:00 07:00 Intake Total 1134 ml 2700 ml Output Total 2200 ml 3700 ml Balance -1066 ml -1000 ml Intake Oral 834 ml IV Total 300 ml 1100 ml Other 1600 ml Output Urine Total 2200 ml 3700 ml # Voids 3 1 # Bowel Movements 1 Laboratory Tests 12/02/18 08:35: White Blood Count 8.4, Red Blood Count 4.42L, Hemoglobin 13.6L, Hematocrit 38.1L , Mean Corpuscular Volume 86, Mean Corpuscular Hemoglobin 30.7, Mean Corpuscular Hemoglobin Concent 35.6, Red Cell Distribution Width 12.6, Platelet Count 173, Mean Platelet Volume 8.9, Neutrophils (%) (Auto) 57.2, Lymphocytes (% ) (Auto) 32.4, Monocytes (%) (Auto) 7.2, Eosinophils (%) (Auto) 2.7, Basophils ( %) (Auto) 0.5, Sodium Level 139, Potassium Level 3.5, Chloride Level 105, Carbon Dioxide Level 26, Anion Gap 8, Blood Urea Nitrogen 11, Creatinine 0.9, Estimat Glomerular Filtration Rate > 60, Glucose Level 159H, Calcium Level 8.8 Height (Feet): 5 Height (Inches): 11.00 Weight (Pounds): 267 General Appearance: lethargic EENT: normal ENT inspection Neck: normal alignment Cardiovascular: normal peripheral pulses, normal rate, regular rhythm Respiratory/Chest: chest wall non-tender, lungs clear, normal breath sounds Abdomen: normal bowel sounds, non tender, soft Extremities: normal inspection Edema: no edema noted Arm (L), no edema noted Arm (R), no edema noted Leg (L), no edema noted Leg (R), no edema noted Pedal (L), no edema noted Pedal (R), no edema noted Generalized Neurologic: responsive, motor weakness Skin: normal pigmentation, warm/dry Aniceto Sepulveda DO Dec 02, 2018 12:28
[2018-12-02] MEDS: Albuterol/Ipratropium 3ml neb HHN SCH ×2 (13:00→20:31)
[2018-12-02 16:00] VITALS: BP 121/76
[2018-12-02] MEDS ORDERED: Tubing IV Secondary IV ONE (16:47)
--- NOTE | 2018-12-02 19:30 | NUR ---
NURSE NOTES: Received patient AOx4, in bed, able to verbalize needs, c/o headache, will give PRN pain med when due, patient verbalized understanding. IV site L FA running NS at 100ml/hr. Urinal emptied. Bed on lowest position, 2 side rails up, seizure precautions, call light and belongings within reach. Will monitor blood sugar closely.
--- NOTE | 2018-12-02 19:31 | NUR ---
HAND-OFF: Report given to JAKE Dempsey. Addendum: 12/02/18 at 1937 by Karma Cameron RN HAND-OFF: Report given to JAKE Arias.
--- NOTE | 2018-12-02 19:45 | Progress Note ---
DATE: 12/02/2018 SUBJECTIVE: This is a 38-year-old male patient with uncontrolled dizziness. He is confused. He is disorganized. He has got mood lability. He has got no logical plan for his own self-care, but this patient does have some mood lability, confusion, and disorganized thought process that is why he does require acute inpatient treatment. He has feelings of helplessness, hopelessness, low energy, poor appetite, attending physician has requested daily psychiatric consultation. MENTAL STATUS EXAMINATION: This is a 38-year-old male. Appearance is disheveled. Attitude, irritable and agitated. Affect, guarded and restricted. Intellect poor. Mood depressed and anxious. Motor activity, psychomotor agitation. Attention span is poor. Orientation x2. Speech is slightly pressured. Thought process, disorganized and illogical. Thought content, auditory hallucinations and paranoid delusions. Insight and judgment is poor. DIAGNOSIS: Schizoaffective, bipolar type. PLAN: Plan for this patient is to treat him with a psychotropic medication regimen consisting of Lexapro 10 mg daily, Depakote 500 mg q.12 h., Seroquel at a dose of 200 mg at bedtime, and Xanax 1 mg every six hours p.r.n. anxiety and agitation. Provided him with 20 minutes of cognitive behavioral therapy to help him identify his automatic negative thoughts and help him convert those negative thoughts to more positive thoughts reduce depression, anxiety, and suicidality. Chart reviewed. Discussed with staff. A 20 minutes of cognitive behavioral therapy provided. Charmaine Victor M.D. DR: Shania JOB#: [id number] CC:
[2018-12-02 20:00] VITALS: BP 117/74
[2018-12-02] MEDS: QUEtiapine 200mg tab ORAL SCH (20:40)
[2018-12-02] MEDS: Levemir Flexpen SUBQ SCH (22:27)
[2018-12-03] VITALS: BP 109/51
[2018-12-03] MEDS: Albuterol/Ipratropium 3ml neb HHN SCH ×5 (01:07→23:37)
[2018-12-03] MEDS: Morphine Sulfate 2mg/ml Inj(IV/IM USE ONLY) IVP PRN ×6 (01:11→21:20)
[2018-12-03 04:00] VITALS: BP 111/53
[2018-12-03] MEDS: NovoLOG Insulin Flexpen SUBQ SCH ×7 (06:43→21:12)
--- NOTE | 2018-12-03 07:17 | NUR ---
HAND-OFF: Report given to JAKE Parada.
--- NOTE | 2018-12-03 07:42 | NUR ---
NURSE NOTES: Received report from JAKE Arias. Pt is in the bed. On the RA. No s/s of respiratory distress or discomfort noted. Bed is in the lowest position. Call light is within the reach. Will continue to monitor
[2018-12-03 08:00] VITALS: BP 124/60
[2018-12-03] MEDS: Heparin 5000 units/ml inj SUBQ SCH ×3 (09:00→21:02)
[2018-12-03] MEDS: Depakote 500mg tab ORAL SCH ×2 (09:01→21:00)
[2018-12-03] MEDS: Aspirin Baby 81mg ORAL SCH (09:01)
--- NOTE | 2018-12-03 09:04 | General Progress Note ---
Assessment/Plan Problem List: (1) COPD (chronic obstructive pulmonary disease) ICD Codes: J44.9 - Chronic obstructive pulmonary disease, unspecified SNOMED: 14338589 (2) Diabetes mellitus ICD Codes: E11.9 - Diabetes mellitus SNOMED: 36157645 (3) CVA (cerebral vascular accident) ICD Codes: I63.9 - Cerebral infarction, unspecified SNOMED: 425443800 (4) Uncontrolled seizures ICD Codes: R56.9 - Unspecified convulsions SNOMED: 16556652 Status: stable, progressing Assessment/Plan pt diet bs control cbc bmp am dc to snf if clear Subjective Constitutional: Reports: weakness Allergies: Coded Allergies: HALOPERIDOL (Verified Allergy, Unknown, 11/30/18) All Systems: reviewed and negative except above Subjective calm in bed sleepy Objective Last 24 Hour Vital Signs Date Time Temp Pulse Resp B/P (MAP) Pulse Ox O2 Delivery O2 Flow Rate FiO2 12/03/18 08:00 98.2 100 20 124/60 (81) 95 12/03/18 07:35 101 18 95 Room Air 21 12/03/18 07:24 106 18 93 Room Air 21 12/03/18 04:00 98.1 65 18 111/53 (72) 100 12/03/18 01:17 77 18 99 Room Air 21 12/03/18 01:07 73 18 97 Room Air 21 12/03/18 00:00 98.9 70 18 109/51 (70) 95 12/02/18 21:00 Room Air 12/02/18 20:40 75 18 100 Room Air 21 12/02/18 20:36 97.6 12/02/18 20:33 78 18 98 Room Air 21 12/02/18 20:33 78 18 Room Air 21 12/02/18 20:00 99.4 90 20 117/74 (88) 96 12/02/18 16:00 97.6 84 20 121/76 (91) 96 12/02/18 12:00 98.2 77 21 121/72 (88) 97 12/02/18 11:48 75 20 21 Intake and Output 12/02/18 12/03/18 19:00 07:00 Intake Total 2400 ml 1750 ml Output Total 4000 ml 1600 ml Balance -1600 ml 150 ml Intake Oral 1200 ml 650 ml IV Total 1200 ml 1100 ml Output Urine Total 4000 ml 1600 ml # Voids 6 Height (Feet): 5 Height (Inches): 11.00 Weight (Pounds): 267 General Appearance: lethargic EENT: normal ENT inspection Neck: normal alignment Cardiovascular: normal peripheral pulses, normal rate, regular rhythm Respiratory/Chest: chest wall non-tender, lungs clear, normal breath sounds Abdomen: normal bowel sounds, non tender, soft Extremities: normal inspection Edema: no edema noted Arm (L), no edema noted Arm (R), no edema noted Leg (L), no edema noted Leg (R), no edema noted Pedal (L), no edema noted Pedal (R), no edema noted Generalized Neurologic: motor weakness Skin: normal pigmentation, warm/dry Aniceto Sepulveda DO Dec 03, 2018 09:04
--- NOTE | 2018-12-03 09:21 | NUR ---
*-* DISCHARGE PLANNING *-* PATIENT HAS BEEN REFERRED TO: [facility] P:[phone] F:[phone] EFAX: [phone]
--- NOTE | 2018-12-03 10:21 | Consultation ---
History of Present Illness General Date patient seen: Dec 03, 2018 Chief Complaint: General Complaint Reason for Consultation: Leukocytosis Present Illness HPI Mr. Chopra is a 38 yo male from a [facility] who was arrested and then his fdc refused to take him back. He presented to the ED with hyperglycemia and mild leukocytosis. He reported no complaints and deneis, N/V/D , F/C abdominal pain and bleeding. He was aferbile in the ED. Significant positive finding included WBCs of 12 and Glu 281. He was started on levofloxacin and his leukocytosis has resolved. He reports that his last seizure was on thursday. ID consulted for leukocytosis PMHx/PSHx COPD Psych history CVA Seizure DM1 Neck surgery SocHx Active smoker No E/D FamHx Not contributory Allergies: Coded Allergies: HALOPERIDOL (Verified Allergy, Unknown, 11/30/18) Medication History Scheduled Aspirin* (Aspirin*), 81 MG ORAL DAILY, (Reported) Divalproex Sodium* (Depakote*), 500 MG PO Q12HR, (Reported) Escitalopram Oxalate* (Lexapro*), 10 MG ORAL DAILY, (Reported) Insulin Aspart (Novolog), 15 UNIT SQ BEFORE MEALS, (Reported) Insulin Glargine (Lantus), 30 UNITS SUBQ BEDTIME, (Reported) Quetiapine Fumarate* (Seroquel*), 200 MG ORAL BEDTIME, (Reported) Scheduled PRN Alprazolam* (Xanax*), 0.5 MG PO Q6HR PRN for For Anxiety, (Reported) Clonidine Hcl* (Catapres*), 0.1 MG ORAL Q4HR PRN for For High Blood Pressure, ( Reported) Insulin Aspart (Novolog), 0 SQ BEFORE MEALS PRN for Sliding Scale, (Reported) Ipratropium/Albuterol Sulfate (DuoNeb 0.5-3(2.5)mg/3ml), 3 ML HHN Q4HR PRN for Shortness of Breath, (Reported) Discontinued Medications Acetaminophen* (Acetaminophen 325MG Tablet*), 650 MG ORAL Q4H PRN for fever, ( Reported) Discontinued Reason: Pt stopped taking med Divalproex Sodium (Divalproex Sodium), 1,000 MG PO Q12HR, (Reported) Discontinued Reason: Medication dose changed Hydrocodone Bit/Acetaminophen 10-325* ([place] 10-325*), 1 TAB ORAL Q4H PRN for For Pain, (Reported) Discontinued Reason: Pt stopped taking med Methocarbamol (Methocarbamol), 500 MG PO Q8HR PRN for Severe Breakthru Pain (>7) , (Reported) Discontinued Reason: Pt stopped taking med Nitroglycerin (Nitrostat), 0.4 MG SL q5min x3 doses PRN for Prn Chest Pain, ( Reported) Discontinued Reason: Pt stopped taking med Ondansetron* (Zofran*), 4 MG ORAL Q4HR PRN for Nausea & Vomiting, (Reported) Discontinued Reason: Pt stopped taking med Pantoprazole (Pantoprazole), 40 MG ORAL EVERY 12 HOURS, (Reported) Discontinued Reason: Pt stopped taking med Polyethylene Glycol 3350* (Polyethylene Glycol 3350*), 17 GM ORAL BEDTIME PRN for Constipation, (Reported) Discontinued Reason: Pt stopped taking med Temazepam* (Restoril*), 15 MG ORAL BEDTIME PRN for Insomnia, (Reported) Discontinued Reason: Pt stopped taking med Patient History Healthcare decision maker Resuscitation status Full Code Advanced Directive on File No Review of Systems ROS Narrative 12 point ROS negative except as note in the HPI. Physical Exam Last 24 Hour Vital Signs Date Time Temp Pulse Resp B/P (MAP) Pulse Ox O2 Delivery O2 Flow Rate FiO2 12/03/18 08:00 98.2 100 20 124/60 (81) 95 12/03/18 07:35 101 18 95 Room Air 12/03/18 07:24 106 18 93 Room Air 12/03/18 04:00 98.1 65 18 111/53 (72) 100 12/03/18 01:17 77 18 99 Room Air 12/03/18 01:07 73 18 97 Room Air 12/03/18 00:00 98.9 70 18 109/51 (70) 95 12/02/18 21:00 Room Air 12/02/18 20:40 75 18 100 Room Air 12/02/18 20:36 97.6 12/02/18 20:33 78 18 98 Room Air 21 12/02/18 20:33 78 18 Room Air 21 12/02/18 20:00 99.4 90 20 117/74 (88) 96 12/02/18 16:00 97.6 84 20 121/76 (91) 96 12/02/18 12:00 98.2 77 21 121/72 (88) 97 12/02/18 11:48 75 20 21 Intake and Output 12/02/18 12/03/18 19:00 07:00 Intake Total 2400 ml 1750 ml Output Total 4000 ml 1600 ml Balance -1600 ml 150 ml Intake Oral 1200 ml 650 ml IV Total 1200 ml 1100 ml Output Urine Total 4000 ml 1600 ml # Voids 6 Height (Feet): 5 Height (Inches): 11.00 Weight (Pounds): 267 Medications Current Medications Medications (Trade) Dose Ordered Sig/Sofia Route PRN Reason Start Time Stop Time Status Last Admin Dose Admin Acetaminophen (Tylenol) 650 mg Q4H PRN ORAL fever (temp>100.5F) 12/01/18 16:30 12/30/18 16:29 Al Hydroxide/Mg Hydroxide (Mylanta II) 30 ml Q6H PRN ORAL dyspepsia 12/01/18 16:30 12/30/18 16:29 Albuterol/ Ipratropium (Albuterol/ Ipratropium) 3 ml Q4H PRN HHN Shortness of Breath 12/01/18 16:30 12/05/18 16:29 Albuterol/ Ipratropium (Albuterol/ Ipratropium) 3 ml Q6HRT HHN 12/02/18 13:00 12/07/18 12:59 12/03/18 07:24 Alprazolam (Xanax) 1 mg Q6H PRN ORAL For Anxiety 12/01/18 16:30 12/08/18 16:29 Aspirin (ASA) 81 mg DAILY ORAL 12/02/18 09:00 12/31/18 08:59 12/03/18 09:01 Clonidine HCl (Catapres Tab) 0.1 mg Q4H PRN ORAL sbp more than 160 12/01/18 16:30 12/30/18 16:29 Dextrose (Dextrose 50%) 25 ml Q30M PRN IV Hypoglycemia 12/01/18 16:15 12/30/18 21:44 Dextrose (Dextrose 50%) 50 ml Q30M PRN IV Hypoglycemia 12/01/18 16:15 12/30/18 21:44 Divalproex Sodium (Depakote) 500 mg Q12HR ORAL 12/01/18 21:00 12/30/18 20:59 12/03/18 09:01 Escitalopram Oxalate (Lexapro) 10 mg DAILY ORAL 12/02/18 09:00 12/31/18 08:59 12/03/18 09:01 Heparin Sodium (Porcine) (Heparin 5000 units/ml) 5,000 units EVERY 12 HOURS SUBQ 12/01/18 21:00 12/30/18 20:59 Insulin Aspart (NovoLOG) BEFORE MEALS AND HS SUBQ 12/01/18 17:30 12/30/18 17:29 12/03/18 06:44 Insulin Aspart (NovoLOG) 10 units NOVOTIAC SUBQ 12/02/18 11:50 12/31/18 06:29 12/03/18 06:43 Insulin Detemir (Levemir) 30 units BEDTIME SUBQ 12/02/18 21:00 12/30/18 21:59 12/02/18 22:27 Levofloxacin 100 ml @ 100 mls/hr Q24H IVPB 12/02/18 14:00 12/09/18 13:59 12/02/18 14:01 Morphine Sulfate (Morphine Sulfate) 2 mg Q4H PRN IVP Severe Pain (Pain Scale 7-10) 12/01/18 16:30 12/07/18 16:29 12/03/18 09:05 Nitroglycerin (Ntg) 0.4 mg Q5M X 3 DOSES PRN SL Prn Chest Pain 12/01/18 16:30 12/30/18 16:29 Ondansetron HCl (Zofran) 4 mg Q6H PRN IVP Nausea & Vomiting 12/01/18 16:30 12/30/18 16:29 12/02/18 20:41 Polyethylene Glycol (Miralax) 17 gm HSPRN PRN ORAL Constipation 12/01/18 21:00 12/30/18 20:59 Promethazine HCl/ Codeine (Phenergan with Codeine) 5 ml Q4H PRN ORAL For Cough 12/02/18 12:15 01/01/19 12:14 Quetiapine Fumarate (SEROquel) 200 mg BEDTIME ORAL 12/01/18 21:00 12/30/18 20:59 12/02/18 20:40 Sodium Chloride 1,000 ml @ 100 mls/hr Q10H IVLG 12/01/18 16:15 12/30/18 19:29 12/03/18 09:01 Temazepam (Restoril) 15 mg HSPRN PRN ORAL Insomnia 12/01/18 21:00 12/07/18 20:59 Objective Narrative Gen: NAD, well appearing, alert HEENT: NCAT, MMM, EOMI, PERRL, No Oral lesion, no scleral icterus NECK: full range of motion, supple, no meningismus, No LAD, No JVD LUNGS: CTAB, No W/C, No Accessory muscle use CARDS: RRR, S1, S2, No M/R/G, ABD: Soft, NT, ND, No R/G, + BS, No HSM, No Masses : Deferred Ext: C/C/E, Pulses 2+ B/L (DP, Rad): NEURO: A/O x 4, Strength and Sensation Grossly intact PSYCH: Mood/affect normal SKIN: Warm/dry, No rashes Assessment/Plan Assessment/Plan 38 yo male from a fdc who was arrested and then his fdc refused to take him back. Leukocytosis Likely reactive (Seizures, Trauma, Increased Glu) No clear sign of infection Afebrile Neg UA CXR neg COPD Saturation well on RA Psych history CVA Seizure DM1 Neck surgery PLAN - D/C Levofloxacin #2 - Monitor off abx - Monitor CBC and temps Thank you for this consult. We will continue to follow the patient during this hospitalization. Will Castillo MD Dec 03, 2018 10:21
[2018-12-03 12:00] VITALS: BP 118/68
[2018-12-03 12:24] LABS: BASOPHILS % (AUTO) 0.6 % (0.0-2.0); HEMATOCRIT 38.3 % (42.0-52.0); HEMOGLOBIN 13.5 G/DL (14.2-18.0); LYMPHOCYTES % (AUTO) 20.7 % (20.0-45.0); MEAN CORPUSCULAR VOLUME 87 FL (80-99); MONOCYTES % (AUTO) 8.6 % (1.0-10.0); NEUTROPHILS % (AUTO) 69.2 % (45.0-75.0); PLATELET COUNT 179 K/UL (150-450); RED BLOOD COUNT 4.43 M/UL (4.70-6.10); RED CELL DISTRIBUTION WIDTH 12.4 % (11.6-14.8); WHITE BLOOD COUNT 9.6 K/UL (4.8-10.8)
[2018-12-03 12:27] LABS: ANION GAP 8 mmol/L (5-15); BLOOD UREA NITROGEN 14 mg/dL (7-18); CALCIUM 8.8 MG/DL (8.5-10.1); CARBON DIOXIDE 27 MMOL/L (21-32); CHLORIDE 103 MMOL/L (98-107); CREATININE 0.8 MG/DL (0.55-1.30); POTASSIUM 3.7 MMOL/L (3.5-5.1); SODIUM 137 MMOL/L (136-145)
--- NOTE | 2018-12-03 13:45 | Pulmonology Progress Note ---
Assessment/Plan Problems: (1) Recurrent falls (2) Uncontrolled diabetes mellitus (3) CVA (cerebral vascular accident) (4) COPD (chronic obstructive pulmonary disease) Assessment/Plan pt , OT all reviewed check sputum add abx for bronchitis check electrolytes dvt prophylaxis Subjective ROS Limited/Unobtainable: No Constitutional: Reports: no symptoms HEENT: Repors: no symptoms Allergies: Coded Allergies: HALOPERIDOL (Verified Allergy, Unknown, 11/30/18) Objective Last 24 Hour Vital Signs Date Time Temp Pulse Resp B/P (MAP) Pulse Ox O2 Delivery O2 Flow Rate FiO2 12/03/18 12:40 102 18 97 Room Air 21 12/03/18 12:28 89 20 95 Room Air 21 12/03/18 12:00 98.6 87 20 118/68 (85) 95 12/03/18 09:00 Room Air 12/03/18 08:00 98.2 100 20 124/60 (81) 95 12/03/18 07:35 101 18 95 Room Air 21 12/03/18 07:24 106 18 93 Room Air 21 12/03/18 04:00 98.1 65 18 111/53 (72) 100 12/03/18 01:17 77 18 99 Room Air 21 12/03/18 01:07 73 18 97 Room Air 21 12/03/18 00:00 98.9 70 18 109/51 (70) 95 12/02/18 21:00 Room Air 12/02/18 20:40 75 18 100 Room Air 12/02/18 20:36 97.6 12/02/18 20:33 78 18 98 Room Air 21 12/02/18 20:33 78 18 Room Air 21 12/02/18 20:00 99.4 90 20 117/74 (88) 96 12/02/18 16:00 97.6 84 20 121/76 (91) 96 Intake and Output 12/02/18 12/03/18 19:00 07:00 Intake Total 2400 ml 1750 ml Output Total 4000 ml 1600 ml Balance -1600 ml 150 ml Intake Oral 1200 ml 650 ml IV Total 1200 ml 1100 ml Output Urine Total 4000 ml 1600 ml # Voids 6 Microbiology Date/Time Source Procedure Growth Status 11/30/18 18:40 Nasal Nares MRSA Culture - Final Staphylococcus Aureus - Mrsa Complete 11/30/18 18:40 Rectum 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 Complete 11/30/18 18:40 Rectum - Final NO CARBAPENEM-RESISTANT ENTEROBACTERI... Complete Laboratory Tests 12/03/18 12:10: White Blood Count 9.6, Red Blood Count 4.43L, Hemoglobin 13.5L, Hematocrit 38.3L , Mean Corpuscular Volume 87, Mean Corpuscular Hemoglobin 30.5, Mean Corpuscular Hemoglobin Concent 35.2, Red Cell Distribution Width 12.4, Platelet Count 179, Mean Platelet Volume 8.2, Neutrophils (%) (Auto) 69.2, Lymphocytes (% ) (Auto) 20.7, Monocytes (%) (Auto) 8.6, Eosinophils (%) (Auto) 1.0, Basophils ( %) (Auto) 0.6, Sodium Level 137, Potassium Level 3.7, Chloride Level 103, Carbon Dioxide Level 27, Anion Gap 8, Blood Urea Nitrogen 14, Creatinine 0.8, Estimat Glomerular Filtration Rate > 60, Glucose Level 200H, Calcium Level 8.8 Current Medications Medications (Trade) Dose Ordered Sig/Sofia Route PRN Reason Start Time Stop Time Status Last Admin Dose Admin Acetaminophen (Tylenol) 650 mg Q4H PRN ORAL fever (temp>100.5F) 12/01/18 16:30 12/30/18 16:29 Al Hydroxide/Mg Hydroxide (Mylanta II) 30 ml Q6H PRN ORAL dyspepsia 12/01/18 16:30 12/30/18 16:29 Albuterol/ Ipratropium (Albuterol/ Ipratropium) 3 ml Q4H PRN HHN Shortness of Breath 12/01/18 16:30 12/05/18 16:29 Albuterol/ Ipratropium (Albuterol/ Ipratropium) 3 ml Q6HRT HHN 12/02/18 13:00 12/07/18 12:59 12/03/18 12:28 Alprazolam (Xanax) 1 mg Q6H PRN ORAL For Anxiety 12/01/18 16:30 12/08/18 16:29 Aspirin (ASA) 81 mg DAILY ORAL 12/02/18 09:00 12/31/18 08:59 12/03/18 09:01 Clonidine HCl (Catapres Tab) 0.1 mg Q4H PRN ORAL sbp more than 160 12/01/18 16:30 12/30/18 16:29 Dextrose (Dextrose 50%) 25 ml Q30M PRN IV Hypoglycemia 12/01/18 16:15 12/30/18 21:44 Dextrose (Dextrose 50%) 50 ml Q30M PRN IV Hypoglycemia 12/01/18 16:15 12/30/18 21:44 Divalproex Sodium (Depakote) 500 mg Q12HR ORAL 12/01/18 21:00 12/30/18 20:59 12/03/18 09:01 Escitalopram Oxalate (Lexapro) 10 mg DAILY ORAL 12/02/18 09:00 12/31/18 08:59 12/03/18 09:01 Furosemide (Lasix) 20 mg ONCE ORAL 12/03/18 13:43 12/03/18 14:43 Heparin Sodium (Porcine) (Heparin 5000 units/ml) 5,000 units EVERY 12 HOURS SUBQ 12/01/18 21:00 12/30/18 20:59 Insulin Aspart (NovoLOG) BEFORE MEALS AND HS SUBQ 12/01/18 17:30 12/30/18 17:29 12/03/18 12:05 Insulin Aspart (NovoLOG) 10 units NOVOTIAC SUBQ 12/02/18 11:50 12/31/18 06:29 12/03/18 12:04 Insulin Detemir (Levemir) 30 units BEDTIME SUBQ 12/02/18 21:00 12/30/18 21:59 12/02/18 22:27 Morphine Sulfate (Morphine Sulfate) 2 mg Q4H PRN IVP Severe Pain (Pain Scale 7-10) 12/01/18 16:30 12/07/18 16:29 12/03/18 13:02 Nitroglycerin (Ntg) 0.4 mg Q5M X 3 DOSES PRN SL Prn Chest Pain 12/01/18 16:30 12/30/18 16:29 Ondansetron HCl (Zofran) 4 mg Q6H PRN IVP Nausea & Vomiting 12/01/18 16:30 12/30/18 16:29 12/03/18 10:10 Polyethylene Glycol (Miralax) 17 gm HSPRN PRN ORAL Constipation 12/01/18 21:00 12/30/18 20:59 Promethazine HCl/ Codeine (Phenergan with Codeine) 5 ml Q4H PRN ORAL For Cough 12/02/18 12:15 01/01/19 12:14 Quetiapine Fumarate (SEROquel) 200 mg BEDTIME ORAL 12/01/18 21:00 12/30/18 20:59 12/02/18 20:40 Sodium Chloride 1,000 ml @ 100 mls/hr Q10H IVLG 12/01/18 16:15 12/30/18 19:29 12/03/18 09:01 Temazepam (Restoril) 15 mg HSPRN PRN ORAL Insomnia 12/01/18 21:00 12/07/18 20:59 Lashanda Pham MD Dec 03, 2018 13:45
[2018-12-03 16:00] VITALS: BP 132/75
--- NOTE | 2018-12-03 18:15 | Progress Note ---
DATE: 12/03/2018 SUBJECTIVE: This is a 38-year-old male patient with uncontrolled dizziness and diabetes, but this patient continues to have some mood lability and confusion worsened by stress of his medical illness. That is why, his attending has requested daily psychiatric consultation. MENTAL STATUS EXAMINATION: This is a 38-year-old male. Appearance is disheveled. Attitude, irritable and agitated. Affect, guarded and restricted. Intellect poor. Mood depressed and anxious. Motor activity, psychomotor agitation. Attention span is poor. Orientation x2. Speech is pressured. Thought process, disorganized, logical. Thought content, auditory hallucinations and paranoid delusions. Insight and judgment is poor. DIAGNOSIS: Schizoaffective, bipolar type. PLAN: Treat him with Seroquel 200 mg at bedtime, Depakote 500 mg q.12 hours, Lexapro 10 mg daily. Provide him with 20 minutes of cognitive behavioral therapy to optimize the negative thoughts and help him to convert those thought processes to more positive thinking to reduce depression, anxiety, suicidality help him to have more adaptive behavior better. Chart reviewed. Discussed with staff. Charmaine Victor M.D. DR: SHELIA JOB#: [id number] CC:
--- NOTE | 2018-12-03 19:19 | NUR ---
NURSE NOTES: Received patient in bed, awake, alert, oriented, no acute distress noted, will continue to monitor. Call light is within reach, bed is in low position and locked, alarm is on.
--- NOTE | 2018-12-03 19:38 | NUR ---
HAND-OFF: Report given to JAKE Blount.
[2018-12-03 20:00] VITALS: BP 135/71
[2018-12-03] MEDS: QUEtiapine 200mg tab ORAL SCH (21:00)
[2018-12-03] MEDS: Levemir Flexpen SUBQ SCH (21:12)
--- NOTE | 2018-12-03 23:30 | Consultation ---
DATE OF CONSULTATION: 12/02/2018 NOTE: UNCLEAR AUDIO PSYCHOTHERAPY CONSULTATION PROGRESS NOTE CONSULTING PHYSICIAN: Juan Chinchilla PsyD TREATING ATTENDING PHYSICIAN: Aniceto Sepulveda D.O. HISTORY OF PRESENT ILLNESS: The patient is a 38-year-old male patient from [place], [place]. The patient has extensive history of mental illness. He was brought into the hospital for treatment from his nursing facility with hyperglycemia and mild leukocytosis. The patient has been feeling helpless, he is not able to return back to his nursing facility. He has a long-term history of schizoaffective disorder, bipolar type, and the patient has felt helpless and anxious and for these reasons, he is also referred for psychotherapeutic services. The patient he does feel helpless and hopeless. He states that he does not know if he is going to be able to go back to his nursing facility and states he does not feel well. He feels sick. He states that he has diabetes and everything he states has been going wrong according to his self report. The patient feels very helpless at this time, however, denies suicidal or homicidal thoughts of ideation. Denies auditory or visual hallucinations. He states that he does have anxiety and difficulty sleeping. PAST MEDICAL HISTORY: Includes a history of COPD, CVA, and frequent allergies. ALLERGIES: The patient is allergic to Haldol. SUBSTANCE ABUSE HISTORY: The patient does have a history of smoking cigarettes. Denies history of alcohol use or illicit substance use. PAST PSYCHIATRIC HISTORY: The patient has history of schizoaffective disorder, bipolar type and has been treated with psychotropic medications in the past. SOCIAL HISTORY: The patient is a 38-year-old male patient. He is currently at [facility] facility, however, apparently refusing to take him back. Financially sustained . MENTAL STATUS EXAMINATION: The patient is alert and oriented to person, place, and time. Mood is irritable. Affect is congruent. Thought process is negative and catastrophic. There is poor attention and concentration. Poor insight, judgment, and impulse control. Reality orientation, which is focused on cognitive function level , person, place, time, and situation. Provide the patient with cognitive behavioral interventions, focused on the insight that this is assisted living and problems with mobility and assisting with feeling anxiety and restlessness. Provided with positive mood status, positive self talk, positive coping skills. Encouraging the patient to continue with . The patient's affect is blunted. Psychoeducation on mental health symptoms and continues to . DIAGNOSES: 1. Schizoaffective disorder, bipolar type. 2. medication compliance, thoughts with coping skills. psychotherapy for assistance at this time. Juan Chinchilla PsyD. DR: TERESA JOB#: [id number] CC:
[2018-12-04] VITALS: BP 123/71
[2018-12-04] MEDS: Morphine Sulfate 2mg/ml Inj(IV/IM USE ONLY) IVP PRN ×5 (01:25→22:20)
[2018-12-04 04:28] VITALS: BP 125/83
[2018-12-04] MEDS: NovoLOG Insulin Flexpen SUBQ SCH ×7 (06:09→20:34)
--- NOTE | 2018-12-04 07:20 | NUR ---
HAND-OFF: Report given to Chris JOSEPH.
--- NOTE | 2018-12-04 07:30 | NUR ---
NURSE NOTES: Received pt from JAKE DAVIES. Pt is alert and orient x4. No SOB or acute respiratory distress noted. pt has intact iv access LFA 22g SL. pt is eating breakfast by him self. all needs attended, bed is locked and is in the lowest position. call light within easy reach. will continue to monitor.
[2018-12-04] MEDS ORDERED: Tubing IV Secondary IV ONE (07:43)
--- NOTE | 2018-12-04 07:43 | General Progress Note ---
Assessment/Plan Problem List: (1) COPD (chronic obstructive pulmonary disease) ICD Codes: J44.9 - Chronic obstructive pulmonary disease, unspecified SNOMED: 62786171 (2) Diabetes mellitus ICD Codes: E11.9 - Diabetes mellitus SNOMED: 55479581 (3) Peripheral neuropathy ICD Codes: G62.9 - Peripheral neuropathy SNOMED: 07905997 Assessment/Plan continue Levemir 30 units qhs continue Novolog 10 units ac tid continue NSSI ac / hs Subjective Allergies: Coded Allergies: HALOPERIDOL (Verified Allergy, Unknown, 11/30/18) All Systems: reviewed and negative except above Subjective events noted he is feeling better having breakfast glucose values improved Item Value Date Time Bedside Blood Glucose 156 mg/dl H 12/04/18 0610 Bedside Blood Glucose 189 mg/dl H 12/03/18 2155 Bedside Blood Glucose 223 mg/dl H 12/03/18 1655 Bedside Blood Glucose 201 mg/dl H 12/03/18 1205 Objective Last 24 Hour Vital Signs Date Time Temp Pulse Resp B/P (MAP) Pulse Ox O2 Delivery O2 Flow Rate FiO2 12/04/18 05:26 93 18 99 Room Air 21 12/04/18 05:15 90 18 96 Room Air 12/04/18 04:28 98.7 87 18 125/83 (97) 12/04/18 00:00 98.1 72 19 123/71 (88) 12/03/18 23:45 88 18 100 Room Air 12/03/18 23:38 87 18 97 Room Air 21 12/03/18 21:54 Room Air 12/03/18 20:00 98.3 109 19 135/71 (92) 12/03/18 19:08 96 20 99 Room Air 21 12/03/18 19:01 90 18 97 Room Air 21 12/03/18 16:00 98.8 95 20 132/75 (94) 96 12/03/18 12:40 102 18 97 Room Air 12/03/18 12:28 89 20 95 Room Air 21 12/03/18 12:00 98.6 87 20 118/68 (85) 95 12/03/18 09:00 Room Air 12/03/18 08:00 98.2 100 20 124/60 (81) 95 Intake and Output 12/03/18 12/04/18 18:59 06:59 Intake Total 2690 ml 800 ml Output Total 4050 ml 1800 ml Balance -1360 ml -1000 ml Intake Oral 1490 ml IV Total 1200 ml 800 ml Output Urine Total 4050 ml 1800 ml Laboratory Tests 12/03/18 12:10: White Blood Count 9.6, Red Blood Count 4.43L, Hemoglobin 13.5L, Hematocrit 38.3L , Mean Corpuscular Volume 87, Mean Corpuscular Hemoglobin 30.5, Mean Corpuscular Hemoglobin Concent 35.2, Red Cell Distribution Width 12.4, Platelet Count 179, Mean Platelet Volume 8.2, Neutrophils (%) (Auto) 69.2, Lymphocytes (% ) (Auto) 20.7, Monocytes (%) (Auto) 8.6, Eosinophils (%) (Auto) 1.0, Basophils ( %) (Auto) 0.6, Sodium Level 137, Potassium Level 3.7, Chloride Level 103, Carbon Dioxide Level 27, Anion Gap 8, Blood Urea Nitrogen 14, Creatinine 0.8, Estimat Glomerular Filtration Rate > 60, Glucose Level 200H, Calcium Level 8.8 Height (Feet): 5 Height (Inches): 11.00 Weight (Pounds): 267 General Appearance: no apparent distress Neck: normal alignment Cardiovascular: normal rate Respiratory/Chest: lungs clear Abdomen: normal bowel sounds Pelvis: normal external exam Objective Current Medications Medications (Trade) Dose Ordered Sig/Sofia Route PRN Reason Start Time Stop Time Status Last Admin Dose Admin Acetaminophen (Tylenol) 650 mg Q4H PRN ORAL fever (temp>100.5F) 12/01/18 16:30 12/30/18 16:29 Al Hydroxide/Mg Hydroxide (Mylanta II) 30 ml Q6H PRN ORAL dyspepsia 12/01/18 16:30 12/30/18 16:29 Albuterol/ Ipratropium (Albuterol/ Ipratropium) 3 ml Q4H PRN HHN Shortness of Breath 12/01/18 16:30 12/05/18 16:29 12/04/18 05:15 Albuterol/ Ipratropium (Albuterol/ Ipratropium) 3 ml Q6HRT HHN 12/02/18 13:00 12/07/18 12:59 12/03/18 23:37 Alprazolam (Xanax) 1 mg Q6H PRN ORAL For Anxiety 12/01/18 16:30 12/08/18 16:29 Aspirin (ASA) 81 mg DAILY ORAL 12/02/18 09:00 12/31/18 08:59 12/03/18 09:01 Clonidine HCl (Catapres Tab) 0.1 mg Q4H PRN ORAL sbp more than 160 12/01/18 16:30 12/30/18 16:29 Dextrose (Dextrose 50%) 25 ml Q30M PRN IV Hypoglycemia 12/01/18 16:15 12/30/18 21:44 Dextrose (Dextrose 50%) 50 ml Q30M PRN IV Hypoglycemia 12/01/18 16:15 12/30/18 21:44 Divalproex Sodium (Depakote) 500 mg Q12HR ORAL 12/01/18 21:00 12/30/18 20:59 12/03/18 21:00 Escitalopram Oxalate (Lexapro) 10 mg DAILY ORAL 12/02/18 09:00 12/31/18 08:59 12/03/18 09:01 Heparin Sodium (Porcine) (Heparin 5000 units/ml) 5,000 units EVERY 12 HOURS SUBQ 12/01/18 21:00 12/30/18 20:59 Insulin Aspart (NovoLOG) BEFORE MEALS AND HS SUBQ 12/01/18 17:30 12/30/18 17:29 12/04/18 06:09 Insulin Aspart (NovoLOG) 10 units NOVOTIAC SUBQ 12/02/18 11:50 12/31/18 06:29 12/04/18 06:09 Insulin Detemir (Levemir) 30 units BEDTIME SUBQ 12/02/18 21:00 12/30/18 21:59 12/03/18 21:12 Morphine Sulfate (Morphine Sulfate) 2 mg Q4H PRN IVP Severe Pain (Pain Scale 7-10) 12/01/18 16:30 12/07/18 16:29 12/04/18 01:25 Nicotine (Nicoderm) 1 patch Q24H TDERMAL 12/03/18 20:00 01/02/19 19:59 12/03/18 20:06 Nitroglycerin (Ntg) 0.4 mg Q5M X 3 DOSES PRN SL Prn Chest Pain 12/01/18 16:30 12/30/18 16:29 Ondansetron HCl (Zofran) 4 mg Q6H PRN IVP Nausea & Vomiting 12/01/18 16:30 12/30/18 16:29 12/03/18 10:10 Polyethylene Glycol (Miralax) 17 gm HSPRN PRN ORAL Constipation 12/01/18 21:00 12/30/18 20:59 Promethazine HCl/ Codeine (Phenergan with Codeine) 5 ml Q4H PRN ORAL For Cough 12/02/18 12:15 01/01/19 12:14 Quetiapine Fumarate (SEROquel) 200 mg BEDTIME ORAL 12/01/18 21:00 12/30/18 20:59 12/03/18 21:00 Sodium Chloride 1,000 ml @ 100 mls/hr Q10H IVLG 12/01/18 16:15 12/30/18 19:29 12/04/18 03:14 Temazepam (Restoril) 15 mg HSPRN PRN ORAL Insomnia 12/01/18 21:00 12/07/18 20:59 Tavo Malhotra MD Dec 04, 2018 07:43
[2018-12-04] MEDS: Albuterol/Ipratropium 3ml neb HHN SCH ×3 (07:56→19:50)
[2018-12-04 08:00] VITALS: BP 122/71
--- NOTE | 2018-12-04 08:15 | NUR ---
NURSE NOTES: Received patient on bed, awake. IV site intact and patent. Bed in low and locked position. Patient denies shortness of breath. Room board updated, will continue to monitor.
--- NOTE | 2018-12-04 08:30 | NUR ---
HAND-OFF: Report given to JAKE MOJICA.Pt is stable.
[2018-12-04] MEDS: Aspirin Baby 81mg ORAL SCH (09:41)
[2018-12-04] MEDS: Depakote 500mg tab ORAL SCH ×2 (09:42→22:20)
[2018-12-04] MEDS: Heparin 5000 units/ml inj SUBQ SCH ×2 (09:43→21:00)
[2018-12-04 12:00] VITALS: BP 126/73
--- NOTE | 2018-12-04 12:00 | Progress Note ---
DATE: 12/04/2018 SUBJECTIVE: This is a 38-year-old male patient. He continued to have some confusion because he has uncontrolled diabetes and dehydration and he also has altered mental status, confusion, and mood lability. MENTAL STATUS EXAMINATION: This is a 38-year-old male. Appearance is disheveled. Attitude, irritable and agitated. Affect, guarded and restricted. Intellect poor. Mood depressed and anxious. Motor activity, psychomotor agitation. Attention span is poor. Orientation x2. Speech is pressured. Thought process, disorganized and illogical. Thought content, auditory hallucinations and paranoid delusions. Insight and judgment is poor. DIAGNOSIS: Schizoaffective, bipolar type. PLAN: Treat him with a medication regimen with Seroquel 200 mg nightly, Depakote 500 mg q.12 hours. Provided him with 20 minutes of reality-based supportive psychotherapy and encouraged him to interact appropriately with staff and other patients. A 20 minutes of cognitive behavioral therapy provided. Provided him with 20 minutes of cognitive behavioral therapy to help him identify his automatic negative thoughts and help him convert those negative thoughts to more positive thoughts to reduce depression, anxiety, and suicidality. Chart reviewed. Discussed with staff. Seen and assessed in his room. Charmaine Victor M.D. DR: MARY JOB#: [id number] CC:
--- NOTE | 2018-12-04 12:04 | NUR ---
CHARGE NURSE NOTE: Spoke with . Pt is ready for discharge.
--- NOTE | 2018-12-04 12:14 | NUR ---
CASE MANAGEMENT: REVIEW SI: UNCONTROLLED DM . DEHYDRATION T 98.0 HR 95 RR 18 BP 122/71 SAT 95% ROOM AIR IS: ASA PO QD DEPAKOTE PO Q12HR NOVOLOG SQ ACHS NS IVF @100ML/HR MED/SURG STATUS DCP: PATIENT REPORTS BEING HOMELESS
--- NOTE | 2018-12-04 13:16 | Pulmonology Progress Note ---
Assessment/Plan Problems: (1) Recurrent falls (2) Uncontrolled diabetes mellitus (3) CVA (cerebral vascular accident) (4) COPD (chronic obstructive pulmonary disease) Assessment/Plan might need ortho to evaluate the right effusion all reviewed check sputum add abx for bronchitis check electrolytes dvt prophylaxis Subjective Constitutional: Reports: no symptoms Respiratory: Reports: no symptoms Allergies: Coded Allergies: HALOPERIDOL (Verified Allergy, Unknown, 11/30/18) Objective Last 24 Hour Vital Signs Date Time Temp Pulse Resp B/P (MAP) Pulse Ox O2 Delivery O2 Flow Rate FiO2 12/04/18 13:11 92 18 96 Room Air 21 12/04/18 09:00 Room Air 12/04/18 08:02 90 18 99 Room Air 21 12/04/18 08:00 98.0 95 18 122/71 (88) 95 12/04/18 07:56 88 18 97 Room Air 21 12/04/18 05:26 93 18 99 Room Air 21 12/04/18 05:15 90 18 96 Room Air 21 12/04/18 04:28 98.7 87 18 125/83 (97) 12/04/18 00:00 98.1 72 19 123/71 (88) 12/03/18 23:45 88 18 100 Room Air 21 12/03/18 23:38 87 18 97 Room Air 21 12/03/18 21:54 Room Air 12/03/18 20:00 98.3 109 19 135/71 (92) 12/03/18 19:08 96 20 99 Room Air 21 12/03/18 19:01 90 18 97 Room Air 21 12/03/18 16:00 98.8 95 20 132/75 (94) 96 Intake and Output 12/03/18 12/04/18 19:00 07:00 Intake Total 2690 ml 700 ml Output Total 4050 ml 1800 ml Balance -1360 ml -1100 ml Intake Oral 1490 ml IV Total 1200 ml 700 ml Output Urine Total 4050 ml 1800 ml Objective General Appearance: WD/WN HEENT: normocephalic Respiratory/Chest: chest wall non-tender, lungs clear Cardiovascular: normal peripheral pulses, normal rate Abdomen: normal bowel sounds, soft, non tender Extremities: no cyanosis, right knee effusion/swelling Skin: no rash Microbiology Date/Time Source Procedure Growth Status 12/02/18 23:00 Sputum Gram Stain - Final Resulted 12/02/18 23:00 Sputum Sputum Culture - Preliminary NORMAL UPPER RESPIRATORY MAURICIO AT 24 ... Resulted Current Medications Medications (Trade) Dose Ordered Sig/Sofia Route PRN Reason Start Time Stop Time Status Last Admin Dose Admin Acetaminophen (Tylenol) 650 mg Q4H PRN ORAL fever (temp>100.5F) 12/01/18 16:30 12/30/18 16:29 Al Hydroxide/Mg Hydroxide (Mylanta II) 30 ml Q6H PRN ORAL dyspepsia 12/01/18 16:30 12/30/18 16:29 Albuterol/ Ipratropium (Albuterol/ Ipratropium) 3 ml Q4H PRN HHN Shortness of Breath 12/01/18 16:30 12/05/18 16:29 12/04/18 05:15 Albuterol/ Ipratropium (Albuterol/ Ipratropium) 3 ml Q6HRT HHN 12/02/18 13:00 12/07/18 12:59 12/04/18 13:10 Alprazolam (Xanax) 1 mg Q6H PRN ORAL For Anxiety 12/01/18 16:30 12/08/18 16:29 Aspirin (ASA) 81 mg DAILY ORAL 12/02/18 09:00 12/31/18 08:59 12/04/18 09:41 Clonidine HCl (Catapres Tab) 0.1 mg Q4H PRN ORAL sbp more than 160 12/01/18 16:30 12/30/18 16:29 Dextrose (Dextrose 50%) 25 ml Q30M PRN IV Hypoglycemia 12/01/18 16:15 12/30/18 21:44 Dextrose (Dextrose 50%) 50 ml Q30M PRN IV Hypoglycemia 12/01/18 16:15 12/30/18 21:44 Divalproex Sodium (Depakote) 500 mg Q12HR ORAL 12/01/18 21:00 12/30/18 20:59 12/04/18 09:42 Escitalopram Oxalate (Lexapro) 10 mg DAILY ORAL 12/02/18 09:00 12/31/18 08:59 12/04/18 09:42 Heparin Sodium (Porcine) (Heparin 5000 units/ml) 5,000 units EVERY 12 HOURS SUBQ 12/01/18 21:00 12/30/18 20:59 12/04/18 09:43 Insulin Aspart (NovoLOG) BEFORE MEALS AND HS SUBQ 12/01/18 17:30 12/30/18 17:29 12/04/18 12:10 Insulin Aspart (NovoLOG) 10 units NOVOTIAC SUBQ 12/02/18 11:50 12/31/18 06:29 12/04/18 12:11 Insulin Detemir (Levemir) 30 units BEDTIME SUBQ 12/02/18 21:00 12/30/18 21:59 12/03/18 21:12 Morphine Sulfate (Morphine Sulfate) 2 mg Q4H PRN IVP Severe Pain (Pain Scale 7-10) 12/01/18 16:30 12/07/18 16:29 12/04/18 09:43 Nicotine (Nicoderm) 1 patch Q24H TDERMAL 12/03/18 20:00 01/02/19 19:59 12/03/18 20:06 Nitroglycerin (Ntg) 0.4 mg Q5M X 3 DOSES PRN SL Prn Chest Pain 12/01/18 16:30 12/30/18 16:29 Ondansetron HCl (Zofran) 4 mg Q6H PRN IVP Nausea & Vomiting 12/01/18 16:30 12/30/18 16:29 12/04/18 13:06 Polyethylene Glycol (Miralax) 17 gm HSPRN PRN ORAL Constipation 12/01/18 21:00 12/30/18 20:59 Promethazine HCl/ Codeine (Phenergan with Codeine) 5 ml Q4H PRN ORAL For Cough 12/02/18 12:15 01/01/19 12:14 Quetiapine Fumarate (SEROquel) 200 mg BEDTIME ORAL 12/01/18 21:00 12/30/18 20:59 12/03/18 21:00 Sodium Chloride 1,000 ml @ 100 mls/hr Q10H IVLG 12/01/18 16:15 12/30/18 19:29 12/04/18 03:14 Temazepam (Restoril) 15 mg HSPRN PRN ORAL Insomnia 12/01/18 21:00 12/07/18 20:59 Lashanda Pham MD Dec 04, 2018 13:16
--- NOTE | 2018-12-04 13:25 | NUR ---
CHARGE NURSE NOTE: Spoke with , pt i cleared from his point of view.
[2018-12-04 16:00] VITALS: BP 119/69
--- NOTE | 2018-12-04 18:15 | General Progress Note ---
Assessment/Plan Problem List: (1) Diabetes mellitus ICD Codes: E11.9 - Diabetes mellitus SNOMED: 29348204 (2) Chiari malformation type II ICD Codes: Q07.00 - Chiari malformation type II SNOMED: 372910897 (3) Lumbar degenerative disc disease ICD Codes: M51.36 - Lumbar degenerative disc disease SNOMED: 49756915 (4) Peripheral neuropathy ICD Codes: G62.9 - Peripheral neuropathy SNOMED: 03276164 (5) COPD (chronic obstructive pulmonary disease) ICD Codes: J44.9 - Chronic obstructive pulmonary disease, unspecified SNOMED: 52547962 (6) CVA (cerebral vascular accident) ICD Codes: I63.9 - Cerebral infarction, unspecified SNOMED: 060498475 (7) Noncompliance ICD Codes: Z91.19 - Patient's noncompliance with other medical treatment and regimen SNOMED: 5383984 (8) Uncontrolled diabetes mellitus ICD Codes: E11.65 - Type 2 diabetes mellitus with hyperglycemia SNOMED: 58166565, 968785315 (9) Gastroparesis due to DM ICD Codes: E11.43 - Type 2 diabetes mellitus with diabetic autonomic (poly) neuropathy; K31.84 - Gastroparesis SNOMED: 39767445, 858165097 Status: progressing Assessment/Plan afebrile uncontrolled diabetes cva copd no wheezing reviewed chart and labs Subjective ROS Limited/Unobtainable: Yes Allergies: Coded Allergies: HALOPERIDOL (Verified Allergy, Unknown, 11/30/18) Objective Last 24 Hour Vital Signs Date Time Temp Pulse Resp B/P (MAP) Pulse Ox O2 Delivery O2 Flow Rate FiO2 12/04/18 16:00 97.7 102 18 119/69 (86) 95 12/04/18 13:18 91 18 97 Room Air 12/04/18 13:11 92 18 96 Room Air 12/04/18 12:00 99.5 88 18 126/73 (90) 95 12/04/18 09:00 Room Air 12/04/18 08:02 90 18 99 Room Air 12/04/18 08:00 98.0 95 18 122/71 (88) 95 12/04/18 07:56 88 18 97 Room Air 12/04/18 05:26 93 18 99 Room Air 12/04/18 05:15 90 18 96 Room Air 12/04/18 04:28 98.7 87 18 125/83 (97) 12/04/18 00:00 98.1 72 19 123/71 (88) 12/03/18 23:45 88 18 100 Room Air 21 12/03/18 23:38 87 18 97 Room Air 21 12/03/18 21:54 Room Air 12/03/18 20:00 98.3 109 19 135/71 (92) 12/03/18 19:08 96 20 99 Room Air 21 12/03/18 19:01 90 18 97 Room Air 21 Intake and Output 12/03/18 12/04/18 19:00 07:00 Intake Total 2690 ml 700 ml Output Total 4050 ml 1800 ml Balance -1360 ml -1100 ml Intake Oral 1490 ml IV Total 1200 ml 700 ml Output Urine Total 4050 ml 1800 ml Height (Feet): 5 Height (Inches): 11.00 Weight (Pounds): 267 Neck: supple Cardiovascular: normal rate Respiratory/Chest: lungs clear Abdomen: soft Cory Aggarwal MD Dec 04, 2018 18:15
--- NOTE | 2018-12-04 19:45 | NUR ---
HAND-OFF: Report given to JKAE Banks.
--- NOTE | 2018-12-04 19:50 | NUR ---
NURSE NOTES: Received report from JAKE Solis. Patient A&Ox4. On room room air, no signs of distress or labored breathing. IV intact, patent, and infusing IV fluids. Bed in lowest position with call light in reach. Will continue with plan of care.
[2018-12-04 20:00] VITALS: BP 116/63
[2018-12-04] MEDS: Levemir Flexpen SUBQ SCH (20:35)
[2018-12-04] MEDS: QUEtiapine 200mg tab ORAL SCH (22:20)
[2018-12-05] VITALS: BP 120/70
[2018-12-05] MEDS: Albuterol/Ipratropium 3ml neb HHN SCH ×4 (01:47→22:03)
[2018-12-05 04:00] VITALS: BP 114/73
[2018-12-05] MEDS: Morphine Sulfate 2mg/ml Inj(IV/IM USE ONLY) IVP PRN ×5 (04:45→21:24)
[2018-12-05] MEDS: NovoLOG Insulin Flexpen SUBQ SCH ×7 (06:30→21:23)
--- NOTE | 2018-12-05 07:48 | NUR ---
HAND-OFF: Report given to Yajaira Brennan RN.
--- NOTE | 2018-12-05 07:50 | NUR ---
NURSE NOTES: Received patient in bed, awake, oriented, able to make needs known, On room room air, no signs of distress or labored breathing, IV intact and patent with infusing IV fluids. Bed in lowest position and locked, Call light and needs with in reach. Will continue to monitor.
[2018-12-05 08:00] VITALS: BP 123/71
--- NOTE | 2018-12-05 08:04 | General Progress Note ---
Assessment/Plan Problem List: (1) COPD (chronic obstructive pulmonary disease) ICD Codes: J44.9 - Chronic obstructive pulmonary disease, unspecified SNOMED: 58440676 (2) Diabetes mellitus ICD Codes: E11.9 - Diabetes mellitus SNOMED: 03044755 (3) Peripheral neuropathy ICD Codes: G62.9 - Peripheral neuropathy SNOMED: 59036572 Assessment/Plan continue Levemir 30 units qhs continue Novolog 10 units ac tid continue NSSI ac / hs stable for discharge from DM stand point Subjective Allergies: Coded Allergies: HALOPERIDOL (Verified Allergy, Unknown, 11/30/18) All Systems: reviewed and negative except above Subjective events noted glucose in better control Item Value Date Time Bedside Blood Glucose 123 mg/dl H 12/05/18 0631 Bedside Blood Glucose 185 mg/dl H 12/04/18 2035 Bedside Blood Glucose 170 mg/dl H 12/04/18 1702 Bedside Blood Glucose 178 mg/dl H 12/04/18 1211 Bedside Blood Glucose 156 mg/dl H 12/04/18 0610 Objective Last 24 Hour Vital Signs Date Time Temp Pulse Resp B/P (MAP) Pulse Ox O2 Delivery O2 Flow Rate FiO2 12/05/18 04:00 98.8 69 17 114/73 (87) 96 12/05/18 01:58 98 18 98 Room Air 21 12/05/18 01:47 83 18 94 Room Air 21 12/05/18 00:00 98.2 95 17 120/70 (87) 94 12/04/18 21:00 Room Air 12/04/18 20:02 95 18 99 Room Air 21 12/04/18 20:00 98.1 109 18 116/63 (80) 92 12/04/18 19:51 84 18 95 Room Air 21 12/04/18 16:00 97.7 102 18 119/69 (86) 95 12/04/18 13:18 91 18 97 Room Air 21 12/04/18 13:11 92 18 96 Room Air 21 12/04/18 12:00 99.5 88 18 126/73 (90) 95 12/04/18 09:00 Room Air Intake and Output 12/04/18 12/05/18 18:59 06:59 Intake Total 1480 ml 100 ml Output Total 3850 ml 2750 ml Balance -2370 ml -2650 ml Intake Oral 1080 ml IV Total 400 ml 100 ml Output Urine Total 3850 ml 2750 ml Height (Feet): 5 Height (Inches): 11.00 Weight (Pounds): 267 General Appearance: no apparent distress Neck: normal alignment Cardiovascular: normal rate Respiratory/Chest: lungs clear Abdomen: normal bowel sounds Objective Current Medications Medications (Trade) Dose Ordered Sig/Sofia Route PRN Reason Start Time Stop Time Status Last Admin Dose Admin Acetaminophen (Tylenol) 650 mg Q4H PRN ORAL fever (temp>100.5F) 12/01/18 16:30 12/30/18 16:29 Al Hydroxide/Mg Hydroxide (Mylanta II) 30 ml Q6H PRN ORAL dyspepsia 12/01/18 16:30 12/30/18 16:29 Albuterol/ Ipratropium (Albuterol/ Ipratropium) 3 ml Q4H PRN HHN Shortness of Breath 12/01/18 16:30 12/05/18 16:29 12/04/18 05:15 Albuterol/ Ipratropium (Albuterol/ Ipratropium) 3 ml Q6HRT HHN 12/02/18 13:00 12/07/18 12:59 12/05/18 07:24 Alprazolam (Xanax) 1 mg Q6H PRN ORAL For Anxiety 12/01/18 16:30 12/08/18 16:29 Aspirin (ASA) 81 mg DAILY ORAL 12/02/18 09:00 12/31/18 08:59 12/04/18 09:41 Clonidine HCl (Catapres Tab) 0.1 mg Q4H PRN ORAL sbp more than 160 12/01/18 16:30 12/30/18 16:29 Dextrose (Dextrose 50%) 25 ml Q30M PRN IV Hypoglycemia 12/01/18 16:15 12/30/18 21:44 Dextrose (Dextrose 50%) 50 ml Q30M PRN IV Hypoglycemia 12/01/18 16:15 12/30/18 21:44 Divalproex Sodium (Depakote) 500 mg Q12HR ORAL 12/01/18 21:00 12/30/18 20:59 12/04/18 22:20 Escitalopram Oxalate (Lexapro) 10 mg DAILY ORAL 12/02/18 09:00 12/31/18 08:59 12/04/18 09:42 Heparin Sodium (Porcine) (Heparin 5000 units/ml) 5,000 units EVERY 12 HOURS SUBQ 12/01/18 21:00 12/30/18 20:59 12/04/18 09:43 Insulin Aspart (NovoLOG) BEFORE MEALS AND HS SUBQ 12/01/18 17:30 12/30/18 17:29 12/05/18 06:31 Insulin Aspart (NovoLOG) 10 units NOVOTIAC SUBQ 12/02/18 11:50 12/31/18 06:29 12/05/18 06:30 Insulin Detemir (Levemir) 30 units BEDTIME SUBQ 12/02/18 21:00 12/30/18 21:59 12/04/18 20:35 Morphine Sulfate (Morphine Sulfate) 2 mg Q4H PRN IVP Severe Pain (Pain Scale 7-10) 12/01/18 16:30 12/07/18 16:29 12/05/18 04:45 Nicotine (Nicoderm) 1 patch Q24H TDERMAL 12/03/18 20:00 01/02/19 19:59 12/04/18 20:36 Nitroglycerin (Ntg) 0.4 mg Q5M X 3 DOSES PRN SL Prn Chest Pain 12/01/18 16:30 12/30/18 16:29 Ondansetron HCl (Zofran) 4 mg Q6H PRN IVP Nausea & Vomiting 12/01/18 16:30 12/30/18 16:29 12/04/18 13:06 Polyethylene Glycol (Miralax) 17 gm HSPRN PRN ORAL Constipation 12/01/18 21:00 12/30/18 20:59 Promethazine HCl/ Codeine (Phenergan with Codeine) 5 ml Q4H PRN ORAL For Cough 12/02/18 12:15 01/01/19 12:14 Quetiapine Fumarate (SEROquel) 200 mg BEDTIME ORAL 12/01/18 21:00 12/30/18 20:59 12/04/18 22:20 Sodium Chloride 1,000 ml @ 100 mls/hr Q10H IVLG 12/01/18 16:15 12/30/18 19:29 12/05/18 00:22 Temazepam (Restoril) 15 mg HSPRN PRN ORAL Insomnia 12/01/18 21:00 12/07/18 20:59 Tavo Malhotra MD Dec 05, 2018 08:03
--- NOTE | 2018-12-05 08:29 | Infectious Diseases Prog Note ---
Assessment/Plan Assessment/Plan 38 yo male [place] [facility] who [place] [facility] [place] [facility] [place]. Leukocytosis Likely reactive (Seizures, Trauma, Increased Glu) No clear sign of infection Afebrile Neg UA CXR neg COPD Saturation well on RA Psych history CVA Seizure DM1 Neck surgery PLAN - Monitor off abx - 12/03/18 SP Levofloxacin #2 - Monitor CBC and temps Thank you for this consult. We will continue to follow the patient during this hospitalization. Subjective Allergies: Coded Allergies: HALOPERIDOL (Verified Allergy, Unknown, 11/30/18) Subjective Afebrile No leukocytosis Objective Vital Signs Last 24 Hour Vital Signs Date Time Temp Pulse Resp B/P (MAP) Pulse Ox O2 Delivery O2 Flow Rate FiO2 12/05/18 04:00 98.8 69 17 114/73 (87) 96 12/05/18 01:58 98 18 98 Room Air 21 12/05/18 01:47 83 18 94 Room Air 21 12/05/18 00:00 98.2 95 17 120/70 (87) 94 12/04/18 21:00 Room Air 12/04/18 20:02 95 18 99 Room Air 21 12/04/18 20:00 98.1 109 18 116/63 (80) 92 12/04/18 19:51 84 18 95 Room Air 21 12/04/18 16:00 97.7 102 18 119/69 (86) 95 12/04/18 13:18 91 18 97 Room Air 21 12/04/18 13:11 92 18 96 Room Air 21 12/04/18 12:00 99.5 88 18 126/73 (90) 95 12/04/18 09:00 Room Air Height (Feet): 5 Height (Inches): 11.00 Weight (Pounds): 267 Objective Gen: NAD, well appearing, alert HEENT: NCAT, MMM, EOMI LUNGS: CTAB, No W CARDS: RRR, S1, S2, No M ABD: Soft, NT, ND, + BS Ext: C/C/E, Pulses 2+ B/L (DP, Rad): NEURO: A/O x 4, Strength and Sensation Grossly intact Microbiology Date/Time Source Procedure Growth Status 12/02/18 23:00 Sputum Gram Stain - Final Complete 12/02/18 23:00 Sputum Sputum Culture - Final NORMAL UPPER RESPIRATORY MAURICIO AT 48 ... Complete Current Medications Medications (Trade) Dose Ordered Sig/Sofia Route PRN Reason Start Time Stop Time Status Last Admin Dose Admin Acetaminophen (Tylenol) 650 mg Q4H PRN ORAL fever (temp>100.5F) 12/01/18 16:30 12/30/18 16:29 Al Hydroxide/Mg Hydroxide (Mylanta II) 30 ml Q6H PRN ORAL dyspepsia 12/01/18 16:30 12/30/18 16:29 Albuterol/ Ipratropium (Albuterol/ Ipratropium) 3 ml Q4H PRN HHN Shortness of Breath 12/01/18 16:30 12/05/18 16:29 12/04/18 05:15 Albuterol/ Ipratropium (Albuterol/ Ipratropium) 3 ml Q6HRT HHN 12/02/18 13:00 12/07/18 12:59 12/05/18 07:24 Alprazolam (Xanax) 1 mg Q6H PRN ORAL For Anxiety 12/01/18 16:30 12/08/18 16:29 Aspirin (ASA) 81 mg DAILY ORAL 12/02/18 09:00 12/31/18 08:59 12/04/18 09:41 Clonidine HCl (Catapres Tab) 0.1 mg Q4H PRN ORAL sbp more than 160 12/01/18 16:30 12/30/18 16:29 Dextrose (Dextrose 50%) 25 ml Q30M PRN IV Hypoglycemia 12/01/18 16:15 12/30/18 21:44 Dextrose (Dextrose 50%) 50 ml Q30M PRN IV Hypoglycemia 12/01/18 16:15 12/30/18 21:44 Divalproex Sodium (Depakote) 500 mg Q12HR ORAL 12/01/18 21:00 12/30/18 20:59 12/04/18 22:20 Escitalopram Oxalate (Lexapro) 10 mg DAILY ORAL 12/02/18 09:00 12/31/18 08:59 12/04/18 09:42 Heparin Sodium (Porcine) (Heparin 5000 units/ml) 5,000 units EVERY 12 HOURS SUBQ 12/01/18 21:00 12/30/18 20:59 12/04/18 09:43 Insulin Aspart (NovoLOG) BEFORE MEALS AND HS SUBQ 12/01/18 17:30 12/30/18 17:29 12/05/18 06:31 Insulin Aspart (NovoLOG) 10 units NOVOTIAC SUBQ 12/02/18 11:50 12/31/18 06:29 12/05/18 06:30 Insulin Detemir (Levemir) 30 units BEDTIME SUBQ 12/02/18 21:00 12/30/18 21:59 12/04/18 20:35 Morphine Sulfate (Morphine Sulfate) 2 mg Q4H PRN IVP Severe Pain (Pain Scale 7-10) 12/01/18 16:30 12/07/18 16:29 12/05/18 04:45 Nicotine (Nicoderm) 1 patch Q24H TDERMAL 12/03/18 20:00 01/02/19 19:59 12/04/18 20:36 Nitroglycerin (Ntg) 0.4 mg Q5M X 3 DOSES PRN SL Prn Chest Pain 12/01/18 16:30 12/30/18 16:29 Ondansetron HCl (Zofran) 4 mg Q6H PRN IVP Nausea & Vomiting 12/01/18 16:30 12/30/18 16:29 12/04/18 13:06 Polyethylene Glycol (Miralax) 17 gm HSPRN PRN ORAL Constipation 12/01/18 21:00 12/30/18 20:59 Promethazine HCl/ Codeine (Phenergan with Codeine) 5 ml Q4H PRN ORAL For Cough 12/02/18 12:15 01/01/19 12:14 Quetiapine Fumarate (SEROquel) 200 mg BEDTIME ORAL 12/01/18 21:00 12/30/18 20:59 12/04/18 22:20 Sodium Chloride 1,000 ml @ 100 mls/hr Q10H IVLG 12/01/18 16:15 12/30/18 19:29 12/05/18 00:22 Temazepam (Restoril) 15 mg HSPRN PRN ORAL Insomnia 12/01/18 21:00 12/07/18 20:59 Will Castillo MD Dec 05, 2018 08:29
[2018-12-05] MEDS: Depakote 500mg tab ORAL SCH ×2 (08:48→21:17)
[2018-12-05] MEDS: Aspirin Baby 81mg ORAL SCH (08:48)
[2018-12-05] MEDS: Heparin 5000 units/ml inj SUBQ SCH ×2 (09:00→21:00)
--- NOTE | 2018-12-05 09:03 | NUR ---
NURSE NOTES: Patient refused Heparin injection scheduled at 9AM, explained benefit and risk, but patient still refused, No sign and symptom of SOB nor bleeding noted. Will continue to monitor.
[2018-12-05 12:00] VITALS: BP 126/74
[2018-12-05] MEDS: ALPRAZolam 0.5mg tab ORAL PRN (15:42)
[2018-12-05 16:00] VITALS: BP 127/78
--- NOTE | 2018-12-05 18:15 | Progress Note ---
DATE: 12/05/2018 SUBJECTIVE: This is a 38-year-old male patient with dehydration and diabetes. He continues to have extreme mood lability, confusion, and disorganized thought process. MENTAL STATUS EXAMINATION: This is a 38-year-old male. Appearance is disheveled. Attitude, irritable and agitated. Affect, guarded and restricted. Intellect poor. Mood depressed and anxious. Motor activity, psychomotor agitation. Attention span is poor. Orientation x2. Speech is pressured. Thought process, disorganized and illogical. Thought content, auditory hallucinations and paranoid delusions. Insight and judgment is poor. DIAGNOSIS: Schizoaffective, bipolar type. PLAN: Treat him on dose of Seroquel 200 mg at bedtime and Depakote 500 mg twice a day. Provide him with 20 minutes of cognitive behavioral therapy to optimize the negative thoughts and help him to convert those thought processes to more positive thinking to reduce depression, anxiety, suicidality. Chart reviewed. Discussed with staff. Seen and assessed in his room. Charmaine Victor M.D. DR: GLYNN JOB#: [id number] CC:
--- NOTE | 2018-12-05 19:36 | NUR ---
HAND-OFF: Report given to Fernanda.
--- NOTE | 2018-12-05 19:45 | NUR ---
NURSE NOTES: Received report from Yajaira Brennan RN and JAKE Banegas. Patient A&Ox4 on room air. On room air, no signs of distress or labored breathing. IV intact, patent, and infusing IV fluids. Complains of pain. Bed in lowest position with call light in reach. Will continue with plan care.
[2018-12-05 20:00] VITALS: BP 136/77
--- NOTE | 2018-12-05 20:20 | Pulmonology Progress Note ---
Assessment/Plan Problems: (1) Recurrent falls (2) Uncontrolled diabetes mellitus (3) CVA (cerebral vascular accident) (4) COPD (chronic obstructive pulmonary disease) Assessment/Plan might need ortho to evaluate the right effusion all reviewed check sputum add abx for bronchitis check electrolytes dvt prophylaxis Subjective Allergies: Coded Allergies: HALOPERIDOL (Verified Allergy, Unknown, 11/30/18) Objective Last 24 Hour Vital Signs Date Time Temp Pulse Resp B/P (MAP) Pulse Ox O2 Delivery O2 Flow Rate FiO2 12/05/18 16:00 98.3 95 20 127/78 (94) 97 12/05/18 13:16 102 18 96 Room Air 21 12/05/18 13:06 92 18 96 Room Air 21 12/05/18 12:00 97.7 88 20 126/74 (91) 95 12/05/18 09:00 Room Air 12/05/18 08:00 99.0 99 21 123/71 (88) 95 12/05/18 07:31 92 18 98 Room Air 21 12/05/18 07:24 80 18 95 Room Air 21 12/05/18 04:00 98.8 69 17 114/73 (87) 96 12/05/18 01:58 98 18 98 Room Air 21 12/05/18 01:47 83 18 94 Room Air 21 12/05/18 00:00 98.2 95 17 120/70 (87) 94 12/04/18 21:00 Room Air Intake and Output 12/04/18 12/05/18 19:00 07:00 Intake Total 1480 ml 100 ml Output Total 3850 ml 2750 ml Balance -2370 ml -2650 ml Intake Oral 1080 ml IV Total 400 ml 100 ml Output Urine Total 3850 ml 2750 ml Objective General Appearance: WD/WN HEENT: normocephalic Respiratory/Chest: chest wall non-tender, lungs clear Cardiovascular: normal peripheral pulses, normal rate Abdomen: normal bowel sounds, soft, non tender Extremities: no cyanosis, right knee effusion/swelling Skin: no rash Microbiology Date/Time Source Procedure Growth Status 12/02/18 23:00 Sputum Gram Stain - Final Complete 12/02/18 23:00 Sputum Sputum Culture - Final NORMAL UPPER RESPIRATORY MAURICIO AT 48 ... Complete Current Medications Medications (Trade) Dose Ordered Sig/Sofia Route PRN Reason Start Time Stop Time Status Last Admin Dose Admin Acetaminophen (Tylenol) 650 mg Q4H PRN ORAL fever (temp>100.5F) 12/01/18 16:30 12/30/18 16:29 Al Hydroxide/Mg Hydroxide (Mylanta II) 30 ml Q6H PRN ORAL dyspepsia 12/01/18 16:30 12/30/18 16:29 Albuterol/ Ipratropium (Albuterol/ Ipratropium) 3 ml Q6HRT HHN 12/02/18 13:00 12/07/18 12:59 12/05/18 13:06 Alprazolam (Xanax) 1 mg Q6H PRN ORAL For Anxiety 12/01/18 16:30 12/08/18 16:29 12/05/18 15:42 Aspirin (ASA) 81 mg DAILY ORAL 12/02/18 09:00 12/31/18 08:59 12/05/18 08:48 Clonidine HCl (Catapres Tab) 0.1 mg Q4H PRN ORAL sbp more than 160 12/01/18 16:30 12/30/18 16:29 Dextrose (Dextrose 50%) 25 ml Q30M PRN IV Hypoglycemia 12/01/18 16:15 12/30/18 21:44 Dextrose (Dextrose 50%) 50 ml Q30M PRN IV Hypoglycemia 12/01/18 16:15 12/30/18 21:44 Divalproex Sodium (Depakote) 500 mg Q12HR ORAL 12/01/18 21:00 12/30/18 20:59 12/05/18 08:48 Escitalopram Oxalate (Lexapro) 10 mg DAILY ORAL 12/02/18 09:00 12/31/18 08:59 12/05/18 08:48 Heparin Sodium (Porcine) (Heparin 5000 units/ml) 5,000 units EVERY 12 HOURS SUBQ 12/01/18 21:00 12/30/18 20:59 12/04/18 09:43 Insulin Aspart (NovoLOG) BEFORE MEALS AND HS SUBQ 12/01/18 17:30 12/30/18 17:29 12/05/18 16:58 Insulin Aspart (NovoLOG) 10 units NOVOTIAC SUBQ 12/02/18 11:50 12/31/18 06:29 12/05/18 16:58 Insulin Detemir (Levemir) 30 units BEDTIME SUBQ 12/02/18 21:00 12/30/18 21:59 12/04/18 20:35 Morphine Sulfate (Morphine Sulfate) 2 mg Q4H PRN IVP Severe Pain (Pain Scale 7-10) 12/01/18 16:30 12/07/18 16:29 12/05/18 16:52 Nicotine (Nicoderm) 1 patch Q24H TDERMAL 12/03/18 20:00 01/02/19 19:59 12/04/18 20:36 Nitroglycerin (Ntg) 0.4 mg Q5M X 3 DOSES PRN SL Prn Chest Pain 12/01/18 16:30 12/30/18 16:29 Ondansetron HCl (Zofran) 4 mg Q6H PRN IVP Nausea & Vomiting 12/01/18 16:30 12/30/18 16:29 12/05/18 14:49 Polyethylene Glycol (Miralax) 17 gm HSPRN PRN ORAL Constipation 12/01/18 21:00 12/30/18 20:59 Promethazine HCl/ Codeine (Phenergan with Codeine) 5 ml Q4H PRN ORAL For Cough 12/02/18 12:15 01/01/19 12:14 Quetiapine Fumarate (SEROquel) 200 mg BEDTIME ORAL 12/01/18 21:00 12/30/18 20:59 12/04/18 22:20 Sodium Chloride 1,000 ml @ 100 mls/hr Q10H IVLG 12/01/18 16:15 12/30/18 19:29 12/05/18 10:10 Temazepam (Restoril) 15 mg HSPRN PRN ORAL Insomnia 12/01/18 21:00 12/07/18 20:59 Lashanda Pham MD Dec 05, 2018 20:20
--- NOTE | 2018-12-05 21:00 | NUR ---
NURSE NOTES: Patient ordered outside food to eat. Nurse explained risk of doing so, especially with uncontrolled diabetes and CCHO med diet. Despite education, patient became agitated and was rude to RN, verbalizing that he will do as he pleases. Charge nurse aware.
[2018-12-05] MEDS: QUEtiapine 200mg tab ORAL SCH (21:17)
--- NOTE | 2018-12-05 21:19 | General Progress Note ---
Assessment/Plan Problem List: (1) Diabetes mellitus ICD Codes: E11.9 - Diabetes mellitus SNOMED: 86167400 (2) Chiari malformation type II ICD Codes: Q07.00 - Chiari malformation type II SNOMED: 443031356 (3) Lumbar degenerative disc disease ICD Codes: M51.36 - Lumbar degenerative disc disease SNOMED: 50856177 (4) Peripheral neuropathy ICD Codes: G62.9 - Peripheral neuropathy SNOMED: 29062209 (5) COPD (chronic obstructive pulmonary disease) ICD Codes: J44.9 - Chronic obstructive pulmonary disease, unspecified SNOMED: 81150412 (6) CVA (cerebral vascular accident) ICD Codes: I63.9 - Cerebral infarction, unspecified SNOMED: 626878971 (7) Noncompliance ICD Codes: Z91.19 - Patient's noncompliance with other medical treatment and regimen SNOMED: 0498298 (8) Uncontrolled diabetes mellitus ICD Codes: E11.65 - Type 2 diabetes mellitus with hyperglycemia SNOMED: 68259700, 027305305 (9) Gastroparesis due to DM ICD Codes: E11.43 - Type 2 diabetes mellitus with diabetic autonomic (poly) neuropathy; K31.84 - Gastroparesis SNOMED: 59845197, 640605550 Status: progressing Assessment/Plan sugar is improving no acute events vitals stable uncontrolled diabetes reviewed chart and labs Subjective ROS Limited/Unobtainable: Yes Allergies: Coded Allergies: HALOPERIDOL (Verified Allergy, Unknown, 11/30/18) Objective Last 24 Hour Vital Signs Date Time Temp Pulse Resp B/P (MAP) Pulse Ox O2 Delivery O2 Flow Rate FiO2 12/05/18 16:00 98.3 95 20 127/78 (94) 97 12/05/18 13:16 102 18 96 Room Air 21 12/05/18 13:06 92 18 96 Room Air 21 12/05/18 12:00 97.7 88 20 126/74 (91) 95 12/05/18 09:00 Room Air 12/05/18 08:00 99.0 99 21 123/71 (88) 95 12/05/18 07:31 92 18 98 Room Air 21 12/05/18 07:24 80 18 95 Room Air 21 12/05/18 04:00 98.8 69 17 114/73 (87) 96 12/05/18 01:58 98 18 98 Room Air 21 12/05/18 01:47 83 18 94 Room Air 21 12/05/18 00:00 98.2 95 17 120/70 (87) 94 Intake and Output 12/04/18 12/05/18 19:00 07:00 Intake Total 1480 ml 100 ml Output Total 3850 ml 2750 ml Balance -2370 ml -2650 ml Intake Oral 1080 ml IV Total 400 ml 100 ml Output Urine Total 3850 ml 2750 ml Height (Feet): 5 Height (Inches): 11.00 Weight (Pounds): 267 Neck: supple Cardiovascular: normal rate Respiratory/Chest: lungs clear Abdomen: soft Cory Aggarwal MD Dec 05, 2018 21:19
[2018-12-05] MEDS: Levemir Flexpen SUBQ SCH (21:24)
[2018-12-05] MEDS ORDERED: Albuterol/Ipratropium 3ml neb ONE (21:52)
[2018-12-06] VITALS: BP 110/68
[2018-12-06] MEDS: Albuterol/Ipratropium 3ml neb HHN SCH ×2 (01:24→07:00)
[2018-12-06] MEDS: Morphine Sulfate 2mg/ml Inj(IV/IM USE ONLY) IVP PRN ×3 (03:56→12:15)
[2018-12-06 04:00] VITALS: BP 117/79
[2018-12-06] MEDS: NovoLOG Insulin Flexpen SUBQ SCH ×4 (06:45→11:54)
--- NOTE | 2018-12-06 06:59 | General Progress Note ---
Assessment/Plan Problem List: (1) COPD (chronic obstructive pulmonary disease) ICD Codes: J44.9 - Chronic obstructive pulmonary disease, unspecified SNOMED: 28194698 (2) Diabetes mellitus ICD Codes: E11.9 - Diabetes mellitus SNOMED: 67326535 (3) Peripheral neuropathy ICD Codes: G62.9 - Peripheral neuropathy SNOMED: 87466083 Assessment/Plan increase Levemir to 38 units qhs continue Novolog 10 units ac tid continue NSSI ac / hs stable for discharge from DM stand point Subjective Allergies: Coded Allergies: HALOPERIDOL (Verified Allergy, Unknown, 11/30/18) Subjective events noted fasting glucose is elevated Item Value Date Time Bedside Blood Glucose 254 mg/dl H 12/06/18 0645 Bedside Blood Glucose 289 mg/dl H 12/05/18 2124 Bedside Blood Glucose 206 mg/dl H 12/05/18 1658 Bedside Blood Glucose 185 mg/dl H 12/05/18 1208 Bedside Blood Glucose 123 mg/dl H 12/05/18 0631 Objective Last 24 Hour Vital Signs Date Time Temp Pulse Resp B/P (MAP) Pulse Ox O2 Delivery O2 Flow Rate FiO2 12/06/18 01:36 89 16 97 Room Air 21 12/06/18 01:24 95 16 93 Room Air 21 12/06/18 00:00 98.2 91 19 110/68 (82) 92 12/05/18 22:10 105 20 92 Room Air 21 12/05/18 22:02 103 20 93 Room Air 21 12/05/18 22:02 103 20 Room Air 21 12/05/18 21:00 Room Air 12/05/18 20:00 98.3 91 19 136/77 (96) 96 12/05/18 16:00 98.3 95 20 127/78 (94) 97 12/05/18 13:16 102 18 96 Room Air 21 12/05/18 13:06 92 18 96 Room Air 21 12/05/18 12:00 97.7 88 20 126/74 (91) 95 12/05/18 09:00 Room Air 12/05/18 08:00 99.0 99 21 123/71 (88) 95 12/05/18 07:31 92 18 98 Room Air 21 12/05/18 07:24 80 18 95 Room Air 21 Intake and Output 12/05/18 12/06/18 19:00 07:00 Intake Total 1600 ml 100 ml Output Total 2000 ml Balance -400 ml 100 ml Intake Oral 800 ml IV Total 800 ml 100 ml Output Urine Total 2000 ml Height (Feet): 5 Height (Inches): 11.00 Weight (Pounds): 267 General Appearance: no apparent distress Neck: normal alignment Cardiovascular: normal rate Respiratory/Chest: lungs clear Abdomen: normal bowel sounds Edema: no edema noted Arm (L), no edema noted Arm (R), no edema noted Leg (L), no edema noted Leg (R), no edema noted Pedal (L), no edema noted Pedal (R), no edema noted Generalized Objective Current Medications Medications (Trade) Dose Ordered Sig/Sofia Route PRN Reason Start Time Stop Time Status Last Admin Dose Admin Acetaminophen (Tylenol) 650 mg Q4H PRN ORAL fever (temp>100.5F) 12/01/18 16:30 12/30/18 16:29 Al Hydroxide/Mg Hydroxide (Mylanta II) 30 ml Q6H PRN ORAL dyspepsia 12/01/18 16:30 12/30/18 16:29 Albuterol/ Ipratropium (Albuterol/ Ipratropium) 3 ml Q6HRT HHN 12/02/18 13:00 12/07/18 12:59 12/06/18 01:24 Alprazolam (Xanax) 1 mg Q6H PRN ORAL For Anxiety 12/01/18 16:30 12/08/18 16:29 12/05/18 15:42 Aspirin (ASA) 81 mg DAILY ORAL 12/02/18 09:00 12/31/18 08:59 12/05/18 08:48 Clonidine HCl (Catapres Tab) 0.1 mg Q4H PRN ORAL sbp more than 160 12/01/18 16:30 12/30/18 16:29 Dextrose (Dextrose 50%) 25 ml Q30M PRN IV Hypoglycemia 12/01/18 16:15 12/30/18 21:44 Dextrose (Dextrose 50%) 50 ml Q30M PRN IV Hypoglycemia 12/01/18 16:15 12/30/18 21:44 Divalproex Sodium (Depakote) 500 mg Q12HR ORAL 12/01/18 21:00 12/30/18 20:59 12/05/18 21:17 Escitalopram Oxalate (Lexapro) 10 mg DAILY ORAL 12/02/18 09:00 12/31/18 08:59 12/05/18 08:48 Heparin Sodium (Porcine) (Heparin 5000 units/ml) 5,000 units EVERY 12 HOURS SUBQ 12/01/18 21:00 12/30/18 20:59 12/04/18 09:43 Insulin Aspart (NovoLOG) BEFORE MEALS AND HS SUBQ 12/01/18 17:30 12/30/18 17:29 12/06/18 06:45 Insulin Aspart (NovoLOG) 10 units NOVOTIAC SUBQ 12/02/18 11:50 12/31/18 06:29 12/06/18 06:45 Insulin Detemir (Levemir) 30 units BEDTIME SUBQ 12/02/18 21:00 12/30/18 21:59 12/05/18 21:24 Morphine Sulfate (Morphine Sulfate) 2 mg Q4H PRN IVP Severe Pain (Pain Scale 7-10) 12/01/18 16:30 12/07/18 16:29 12/06/18 03:56 Nicotine (Nicoderm) 1 patch Q24H TDERMAL 12/03/18 20:00 01/02/19 19:59 12/05/18 21:18 Nitroglycerin (Ntg) 0.4 mg Q5M X 3 DOSES PRN SL Prn Chest Pain 12/01/18 16:30 12/30/18 16:29 Ondansetron HCl (Zofran) 4 mg Q6H PRN IVP Nausea & Vomiting 12/01/18 16:30 12/30/18 16:29 12/05/18 14:49 Polyethylene Glycol (Miralax) 17 gm HSPRN PRN ORAL Constipation 12/01/18 21:00 12/30/18 20:59 Promethazine HCl/ Codeine (Phenergan with Codeine) 5 ml Q4H PRN ORAL For Cough 12/02/18 12:15 01/01/19 12:14 Quetiapine Fumarate (SEROquel) 200 mg BEDTIME ORAL 12/01/18 21:00 12/30/18 20:59 12/05/18 21:17 Sodium Chloride 1,000 ml @ 100 mls/hr Q10H IVLG 12/01/18 16:15 12/30/18 19:29 12/06/18 06:46 Temazepam (Restoril) 15 mg HSPRN PRN ORAL Insomnia 12/01/18 21:00 12/07/18 20:59 Tavo Malhotra MD Dec 06, 2018 06:59
--- NOTE | 2018-12-06 07:54 | NUR ---
NURSE NOTES: Patient received in stable condition, eating breakfast in bed. Alert and oriented, breathing unlabored on room air. IV site on left forearm patent and intact, fluids at 100cc/hr. Inquired about last BM, patient confirmed last BM was 5-6 days ago. Refuses medication for constipation. Call light within reach, will continue to monitor.
[2018-12-06 08:00] VITALS: BP 114/76
[2018-12-06] MEDS: Aspirin Baby 81mg ORAL SCH (08:10)
[2018-12-06] MEDS: Depakote 500mg tab ORAL SCH (08:10)
--- NOTE | 2018-12-06 08:13 | NUR ---
HAND-OFF: Report given to JAKE Garcia.
[2018-12-06] MEDS: Heparin 5000 units/ml inj SUBQ SCH (09:00)
[2018-12-06] MEDS: ALPRAZolam 0.5mg tab ORAL PRN (09:08)
--- NOTE | 2018-12-06 10:53 | NUR ---
VERIFICATION REP NOTES PT ACCEPTED AT [facility] 9 BED C. SKILLED. [facility] TO TRANSPORT PT.
[2018-12-06 12:00] VITALS: BP 131/79
--- NOTE | 2018-12-06 12:10 | Infectious Diseases Prog Note ---
Assessment/Plan Assessment/Plan 38 yo male from a fdc who was arrested and then his fdc refused to take him back. Leukocytosis, SP (off abx) Likely reactive (Seizures, Trauma, Increased Glu) No clear sign of infection Afebrile Neg UA CXR neg COPD Saturation well on RA Psych history CVA Seizure DM1 Neck surgery PLAN - Monitor off abx - 12/03/18 SP Levofloxacin #2 - Monitor CBC and temps Thank you for this consult. We will continue to follow the patient during this hospitalization. Subjective Allergies: Coded Allergies: HALOPERIDOL (Verified Allergy, Unknown, 11/30/18) Subjective afebrile no leuokcytosis off abx Objective Vital Signs Last 24 Hour Vital Signs Date Time Temp Pulse Resp B/P (MAP) Pulse Ox O2 Delivery O2 Flow Rate FiO2 12/06/18 09:00 Room Air 12/06/18 08:00 98.3 94 19 114/76 (89) 94 12/06/18 07:57 111 16 93 Room Air 21 12/06/18 07:37 85 16 93 Room Air 21 12/06/18 04:00 98.2 95 19 117/79 (92) 92 12/06/18 01:36 89 16 97 Room Air 21 12/06/18 01:24 95 16 93 Room Air 21 12/06/18 00:00 98.2 91 19 110/68 (82) 92 12/05/18 22:10 105 20 92 Room Air 21 12/05/18 22:02 103 20 93 Room Air 21 12/05/18 22:02 103 20 Room Air 21 12/05/18 21:00 Room Air 12/05/18 20:00 98.3 91 19 136/77 (96) 96 12/05/18 16:00 98.3 95 20 127/78 (94) 97 12/05/18 13:16 102 18 96 Room Air 21 12/05/18 13:06 92 18 96 Room Air 21 Height (Feet): 5 Height (Inches): 11.00 Weight (Pounds): 267 Objective Gen: NAD, well appearing, alert HEENT: NCAT, MMM, EOMI LUNGS: CTAB, No W CARDS: RRR, S1, S2, No M ABD: Soft, NT, ND, + BS Ext: C/C/E, Pulses 2+ B/L (DP, Rad): NEURO: A/O x 4, Strength and Sensation Grossly intact Current Medications Medications (Trade) Dose Ordered Sig/Sofai Route PRN Reason Start Time Stop Time Status Last Admin Dose Admin Acetaminophen (Tylenol) 650 mg Q4H PRN ORAL fever (temp>100.5F) 12/01/18 16:30 12/30/18 16:29 Al Hydroxide/Mg Hydroxide (Mylanta II) 30 ml Q6H PRN ORAL dyspepsia 12/01/18 16:30 12/30/18 16:29 Albuterol/ Ipratropium (Albuterol/ Ipratropium) 3 ml Q6HRT HHN 12/02/18 13:00 12/07/18 12:59 12/06/18 07:00 Alprazolam (Xanax) 1 mg Q6H PRN ORAL For Anxiety 12/01/18 16:30 12/08/18 16:29 12/06/18 09:08 Aspirin (ASA) 81 mg DAILY ORAL 12/02/18 09:00 12/31/18 08:59 12/06/18 08:10 Clonidine HCl (Catapres Tab) 0.1 mg Q4H PRN ORAL sbp more than 160 12/01/18 16:30 12/30/18 16:29 Dextrose (Dextrose 50%) 25 ml Q30M PRN IV Hypoglycemia 12/01/18 16:15 12/30/18 21:44 Dextrose (Dextrose 50%) 50 ml Q30M PRN IV Hypoglycemia 12/01/18 16:15 12/30/18 21:44 Divalproex Sodium (Depakote) 500 mg Q12HR ORAL 12/01/18 21:00 12/30/18 20:59 12/06/18 08:10 Escitalopram Oxalate (Lexapro) 10 mg DAILY ORAL 12/02/18 09:00 12/31/18 08:59 12/06/18 08:10 Heparin Sodium (Porcine) (Heparin 5000 units/ml) 5,000 units EVERY 12 HOURS SUBQ 12/01/18 21:00 12/30/18 20:59 12/04/18 09:43 Insulin Aspart (NovoLOG) BEFORE MEALS AND HS SUBQ 12/01/18 17:30 12/30/18 17:29 12/06/18 11:53 Insulin Aspart (NovoLOG) 10 units NOVOTIAC SUBQ 12/02/18 11:50 12/31/18 06:29 12/06/18 11:54 Insulin Detemir (Levemir) 38 units BEDTIME SUBQ 12/06/18 21:00 12/30/18 21:59 Morphine Sulfate (Morphine Sulfate) 2 mg Q4H PRN IVP Severe Pain (Pain Scale 7-10) 12/01/18 16:30 12/07/18 16:29 12/06/18 08:10 Nicotine (Nicoderm) 1 patch Q24H TDERMAL 12/03/18 20:00 01/02/19 19:59 12/05/18 21:18 Nitroglycerin (Ntg) 0.4 mg Q5M X 3 DOSES PRN SL Prn Chest Pain 12/01/18 16:30 12/30/18 16:29 Ondansetron HCl (Zofran) 4 mg Q6H PRN IVP Nausea & Vomiting 12/01/18 16:30 12/30/18 16:29 12/05/18 14:49 Polyethylene Glycol (Miralax) 17 gm HSPRN PRN ORAL Constipation 12/01/18 21:00 12/30/18 20:59 Promethazine HCl/ Codeine (Phenergan with Codeine) 5 ml Q4H PRN ORAL For Cough 12/02/18 12:15 01/01/19 12:14 Quetiapine Fumarate (SEROquel) 200 mg BEDTIME ORAL 12/01/18 21:00 12/30/18 20:59 12/05/18 21:17 Sodium Chloride 1,000 ml @ 100 mls/hr Q10H IVLG 12/01/18 16:15 12/30/18 19:29 12/06/18 06:46 Temazepam (Restoril) 15 mg HSPRN PRN ORAL Insomnia 12/01/18 21:00 12/07/18 20:59 Natalya Lopez M.D. Dec 06, 2018 12:10
--- NOTE | 2018-12-06 13:21 | General Progress Note ---
Assessment/Plan Problem List: (1) COPD (chronic obstructive pulmonary disease) ICD Codes: J44.9 - Chronic obstructive pulmonary disease, unspecified SNOMED: 71763161 (2) Diabetes mellitus ICD Codes: E11.9 - Diabetes mellitus SNOMED: 48243602 (3) CVA (cerebral vascular accident) ICD Codes: I63.9 - Cerebral infarction, unspecified SNOMED: 445922794 (4) Uncontrolled seizures ICD Codes: R56.9 - Unspecified convulsions SNOMED: 95916454 Status: stable, progressing Assessment/Plan pt diet bs control dc if clear Subjective Constitutional: Reports: weakness Allergies: Coded Allergies: HALOPERIDOL (Verified Allergy, Unknown, 11/30/18) All Systems: reviewed and negative except above Subjective calm in bed Objective Last 24 Hour Vital Signs Date Time Temp Pulse Resp B/P (MAP) Pulse Ox O2 Delivery O2 Flow Rate FiO2 12/06/18 12:00 98.2 85 20 131/79 (96) 94 12/06/18 09:00 Room Air 12/06/18 08:00 98.3 94 19 114/76 (89) 94 12/06/18 07:57 111 16 93 Room Air 21 12/06/18 07:37 85 16 93 Room Air 21 12/06/18 04:00 98.2 95 19 117/79 (92) 92 12/06/18 01:36 89 16 97 Room Air 21 12/06/18 01:24 95 16 93 Room Air 21 12/06/18 00:00 98.2 91 19 110/68 (82) 92 12/05/18 22:10 105 20 92 Room Air 21 12/05/18 22:02 103 20 93 Room Air 21 12/05/18 22:02 103 20 Room Air 21 12/05/18 21:00 Room Air 12/05/18 20:00 98.3 91 19 136/77 (96) 96 12/05/18 16:00 98.3 95 20 127/78 (94) 97 Intake and Output 12/05/18 12/06/18 18:59 06:59 Intake Total 1600 ml 100 ml Output Total 2000 ml 1200 ml Balance -400 ml -1100 ml Intake Oral 800 ml IV Total 800 ml 100 ml Output Urine Total 2000 ml 1200 ml Height (Feet): 5 Height (Inches): 11.00 Weight (Pounds): 267 General Appearance: alert EENT: normal ENT inspection Neck: normal alignment Cardiovascular: normal peripheral pulses, normal rate, regular rhythm Respiratory/Chest: chest wall non-tender, lungs clear, normal breath sounds Abdomen: normal bowel sounds, non tender, soft Extremities: normal inspection Edema: no edema noted Arm (L), no edema noted Arm (R), no edema noted Leg (L), no edema noted Leg (R), no edema noted Pedal (L), no edema noted Pedal (R), no edema noted Generalized Neurologic: responsive, motor weakness Skin: normal pigmentation, warm/dry Aniceto Sepulveda Dec 06, 2018 13:21
--- NOTE | 2018-12-06 14:14 | NUR ---
NURSE NOTES: Patient discharged to [facility] accompanied by [facility] ambulance personnel. Patient in stable condition, alert and oriented, responds appropriately. Breathing unlabored on room air. IV safely removed, IV site covered with gauze and tape. Report given to Bita JOSEPH at [facility]. Discharge packet given to ambulance personnel. Belongings reviewed and confirmed with patient at bedside.
[2018-12-06] MEDS ORDERED: Levemir Flexpen SUBQ SCH (21:00)
--- NOTE | 2018-12-07 03:45 | Consultation ---
DATE OF CONSULTATION: 12/06/2018 CHIEF COMPLAINT: Right knee pain. HISTORY OF PRESENT ILLNESS: The patient is a 38-year-old gentleman, who is admitted for uncontrolled diabetes. Reports approximately a week ago, he kind of fell on his right knee, subsequently he had pain on the lateral aspect of the knee, was admitted, orthopedic consultation obtained for further care and recommendation regarding the knee. PAST MEDICAL HISTORY: Reviewed per intake chart. PAST SURGICAL HISTORY: Reviewed per intake chart. MEDICATIONS: Reviewed per intake chart. PHYSICAL EXAMINATION: GENERAL: The patient is resting comfortably in exam bed. VITAL SIGNS: Afebrile. Stable vital signs. BMI was 40. EXTREMITIES: Right knee examination shows no knee effusion. No ecchymosis. There was some pain along the patellar tendon line insertion and tibial spine. There was also some swelling along the lateral aspect along the insertion of IT band and lateral tibial plateau. DIAGNOSTIC DATA: Imaging studies of the knee, posterior calf is soft. Four views of the right knee reviewed and showed no obvious lateral tibial plateau fracture joint space. ASSESSMENT: Right knee contusion, possible parapatellar bursitis versus traumatic iliotibial band tendinitis. DISCUSSION: At this point, some degree of patellar tendinosis as well as secondary patellar tendinitis parapatellar bursitis. Discussed at this point, recommend cryotherapy and NSAIDs. They should hopefully heal and can be weightbearing as tolerated. No restrictions healing at this point . Jose Nunez M.D. DR: PHIL JOB#: [id number] CC:
--- NOTE | 2018-12-07 03:45 | Progress Note ---
DATE: 12/06/2018 NOTE: POOR AUDIO SUBJECTIVE: This is a 38-year-old male patient with uncontrolled diabetes. He continued to be depressed, confused, mood labile. Continued to endorse pressured speech he denies suicidal ideations, but he is still confused, high level of anxiety and depression. MENTAL STATUS EXAMINATION: This is a 38-year-old male. Appearance is disheveled. Attitude, irritable and agitated. Affect, guarded and restricted. Intellect poor. Mood depressed and anxious. Motor activity, psychomotor agitation. Attention span is poor. Orientation x2. Speech is low volume and slurred. Thought process, disorganized and illogical. Insight and judgment is poor. DIAGNOSIS: Schizoaffective, bipolar type. PLAN: I am going to continue him on Depakote 500 mg twice a day, Seroquel 200 mg at bedtime, . Provided 20 minutes of cognitive behavioral therapy to help him identify his automatic negative thoughts and help him convert those negative thoughts to more positive thoughts to reduce depression, anxiety, and suicidality. . A 20 minutes of cognitive behavioral therapy provided. Chart reviewed. Discussed with staff. Seen and assessed in his room. Charmaine Victor M.D. DR: MARY JOB#: [id number] CC:
--- NOTE | 2018-12-07 08:51 | Discharge Summary ---
Discharge Summary Discharge Summary _ DATE OF ADMISSION: 11/30/2018 DATE OF DISCHARGE: 12/06/2018 DISCHARGED BY: Dr Sepulveda REASON FOR ADMISSION: 38 years old male with past medical history of COPD, hypertension, diabetes mellitus type 1 insulin-dependent, history of CVA in July 2018, seizure disorder, chronic back pain, psychosis, presented with increased generalized weakness, status post mechanical fall. Patient also reported increased blood sugars. He denied any recent fevers or chills. Upon evaluation vital signs revealed tachycardia . Pulse oximetry was stable on room air. Laboratory workup revealed leukocytosis WBC 12.4, stable hemoglobin and hematocrit. Urinalysis revealed +2 protein, +2 glucose, mild pyuria and few bacteria. Electrolytes and renal parameters were stable. Glucose 281. Troponin negative. EKG revealed sinus tachycardia , no acute ischemic changes. Chest x-ray showed no acute cardiopulmonary pathology. Patient was admitted for further management CONSULTANTS: pulmonary Dr. Pham ID specialist Dr. Contreras psychiatrist Dr. Victor orthopedic surgeon Dr. Nunez assistant credit manager Dr. Malhotra HOSPITAL COURSE: Patient was admitted to telemetry floor. Supplemental oxygen provided as needed to keep pulse oximetry above 92%. Pulmonary toilet provided as needed. Chest x-ray was negative. Patient was counseled on smoking cessation. Nicotine patch provided. No evidence of COPD exacerbation. [employer] followed for blood sugar management. Hemoglobin A1c -8.3. Anti-glycemic regimen was titrated as per assistant credit manager. Blood sugar was managed with long-acting Levemir at nighttime , pre-meal short acting NovoLog before meals and sliding scale of insulin was implemented as needed. Blood sugar stabilized. Patient was counseled on adherence with anti-glycemic regimen at the nursing facility and compliance with diabetic diet. Orthopedic surgeon seen and evaluated patient for complaints of right knee pain. Four views X ray of the right knee were reviewed by orthopedic surgeon, and showed no obvious lateral tibial plateau fracture . Per orthopedic surgeon , patient had right knee contusion, possibly patellar bursitis versus traumatic iliotibial band tendinitis. Physical examination revealed tenderness along the patellar tendon line insertion and tibial spine. Further plan of care was discussed with the patient. Orthopedic surgeon recommended cryotherapy and nonsteroidal anti-inflammatory medications for pain management. Weightbearing was allowed as tolerated , with no restriction. Patient was able to ambulate safely under nursing supervision. Fall precaution maintained. Seizure precautions were maintained. Depakote was continued. No evidence of seizure activity while in the hospital. Antiplatelet therapy with aspirin was continued. Lipid panel was stable. Blood pressure was closely monitored. Clonidine was on board as needed. Blood pressure remained stable. Infectious disease followed for leukocytosis. Patient had no clear signs of infection. Sputum culture was negative. Chest x-ray revealed no acute cardiopulmonary pathology , urinalysis revealed no evidence of UTI. Infectious disease doctor recommended to monitor patient off antibiotics. Leukocytosis was likely reactive and resolved. Patient was kept off antibiotics. Psychiatrist followed . Patient was diagnosed with schizoaffective disorder bipolar type. Psychiatric medication regimen was optimized as per psychiatrist. Cognitive behavioral therapy provided. Pain management was addressed , and pain was controlled. DVT prophylaxis provided. Bowel regimen instituted. Supportive care provided. Patient clinically stabilized and was ready for discharge to group home facility for continuation of care . FINAL DIAGNOSES: Diabetes mellitus out of control COPD History of CVA Right knee contusion, possible parapatellar bursitis versus traumatic iliotibial band tendinitis - due to fall Leukocytosis/resolved Seizure disorder s/p fall Schizoaffective disorder bipolar type DISCHARGE MEDICATIONS: See Medication Reconciliation list. DISCHARGE INSTRUCTIONS: Patient was discharged to the group home facility. Follow up with medical doctor at the facility. I have been assigned to dictate discharge summary for this account. I was not involved in the patient's management. Elisa Antony NP Dec 07, 2018 08:51
--- NOTE | 2018-12-16 15:07 | Diagnostic Imaging Report ---
APPROVED REPORT CPT Code: 33670 Present Symptoms Lower Extremity Pain: Right RIGHT LEG: Venous imaging reveals a patent deep venous system. There is no evidence of thrombus within the femoral, popliteal or tibial segments. The greater saphenous vein is also within normal limits. Doppler indicates normal spontaneous flow within these segments.
== END 2018-12-06 14:15 | DRG 639 ==
LOC: EDBEDREQ 17:37 → EMR 17:45 → 2E 17:47 → EDBEDREQ 18:14 → 4E 12-01 16:02
DX: E10.65 Type 1 diabetes mellitus with hyperglycemia (principal); E10.43 Type 1 diabetes mellitus with diabetic autonomic (poly)neuropathy; K31.84 Gastroparesis; Z79.4 Long term (current) use of insulin; Z86.73 Personal history of transient ischemic attack (TIA), and cerebral infarction without residual deficits; F25.0 Schizoaffective disorder, bipolar type; Z79.82 Long term (current) use of aspirin; Z88.8 Allergy status to other drugs, medicaments and biological substances; M51.36 Other intervertebral disc degeneration, lumbar region; J44.9 Chronic obstructive pulmonary disease, unspecified; G40.909 Epilepsy, unspecified, not intractable, without status epilepticus; S80.01XA Contusion of right knee, initial encounter; W19.XXXA Unspecified fall, initial encounter; M70.51 Other bursitis of knee, right knee; M76.31 Iliotibial band syndrome, right leg; G62.9 Polyneuropathy, unspecified; R42 Dizziness and giddiness; Z59.0 Homelessness; F17.200 Nicotine dependence, unspecified, uncomplicated; E86.0 Dehydration; Z91.19 Patient's noncompliance with other medical treatment and regimen; R29.6 Repeated falls; Q07.00 Arnold-Chiari syndrome without spina bifida or hydrocephalus
CPT/HCPCS: 36415; 36600; 71045; 80048; 80053; 80061; 81001; 82009; 82803; 82962; 83036; 83735; 84100; 84443; 85025; 87070; 87081; 87205; 93005; 93971; 94640; 94664; 96361; 96374; 99285; J1815; J2405; J7620; S5561

== ENCOUNTER 2019-01-06 13:29 | Inpatient (IN) | payer MEDICARE, MEDICAID ==
[~2019-01-06] VITALS: Ht 180.3 cm; Wt 119.7 kg
[~2019-01-06 13:29] MED LIST changes: +ASPIRIN81 MG ORAL; +NOVOLOG100 UNIT/5 SQ
[2019-01-06 13:55] VITALS: BP 136/80
--- NOTE | 2019-01-06 13:55 | NUR ---
ED Nurse Note: patient walked in by him self, complaining of chest pain. AAO x4, VSS at this time ,skin is dry intact. will continue to monitor.
--- NOTE | 2019-01-06 14:10 | Emergency Room Report ---
History of Present Illness General Chief Complaint: Chest Pain Source: Patient Present Illness HPI Patient presents with left-sided chest pain. He feels that sharp. Rated 10/ 10. He took aspirin and it didn't help. The patient has risk factors of hypertension,DM and smoking. Patient states the pain is worse with exertion. It's not positional. He's had this pain before. He had some cardiac procedure year ago he says. Patient denies any fevers, chills, nausea, vomiting, diarrhea, calf pain or leg swelling. H/O seizures - on Depakote H/O CVA H/O diabetes H/O chronic leg and arm weakness Forehead lesion Allergies: Coded Allergies: HALOPERIDOL (Verified Allergy, Unknown, 11/30/18) Patient History Past Medical History: see triage record, old chart reviewed Past Surgical History: other - back and neck surgeries Social History: Reports: smoking Social History Narrative at assisted living Reviewed Nursing Documentation: PMH: Agreed; PSxH: Agreed Nursing Documentation-PMH Past Medical History: No History, Except For Hx Hypertension: Yes Hx COPD: Yes Hx Diabetes: Yes Hx Cancer: No Hx Gastrointestinal Problems: Yes Hx Neurological Problems: Yes Hx Cerebrovascular Accident: Yes - 2018 Hx Seizures: Yes Hx Peripheral Neuropathy: Yes Hx Head Trauma: Yes Hx Dizziness: Yes Hx Headaches: Yes Hx Weakness: Yes - left arm, left leg Review of Systems All Other Systems: negative except mentioned in HPI Physical Exam Vital Signs Date Time Temp Pulse Resp B/P (MAP) Pulse Ox O2 Delivery O2 Flow Rate FiO2 01/06/19 13:36 98.2 103 18 137/80 95 Room Air Sp02 EP Interpretation: reviewed, normal General Appearance: well appearing, no apparent distress, GCS 15 Head: normocephalic, atraumatic Eyes: bilateral eye normal inspection, bilateral eye PERRL, bilateral eye EOMI ENT: moist mucus membranes Neck: supple Respiratory: chest non-tender, lungs clear, normal breath sounds Cardiovascular #1: regular rate, rhythm Cardiovascular #2: 2+ radial (R) Gastrointestinal: normal inspection, normal bowel sounds, non tender, no mass, non-distended Musculoskeletal: back normal, normal range of motion Neurologic: alert, oriented x3, cytotechnologist/cytology supervisor III-XII nml as tested, DTRs symmetric, motor weakness - L arm and leg (minimal) Psychiatric: mood/affect normal Skin: warm/dry, other - lesion L anterior scalp Medical Decision Making Diagnostic Impression: Primary Impression: Chest pain Qualified Codes: R07.9 - Chest pain, unspecified Additional Impression: Hyperglycemia ER Course Patient presents with left-sided chest pain. Differential includes acute coronary syndrome, acute myocardial infarction, muscle strain, costochondritis, anxiety, GERD amongst others. The patient will be evaluated with EKG, chest x- ray and labs. The patient will be given aspirin, nitroglycerin paste and morphine with Zofran. EKG without injury. CXR clear. Elevated glucose. Troponin initially normal. Patient required second dose of morphine. Improved but needs repeat troponin determinations as high risk patient. Admit tele Dr. Sepulveda. Laboratory Tests Test 01/06/19 14:30 White Blood Count 9.0 K/UL (4.8-10.8) Red Blood Count 4.91 M/UL (4.70-6.10) Hemoglobin 14.5 G/DL (14.2-18.0) Hematocrit 42.3 % (42.0-52.0) Mean Corpuscular Volume 86 FL (80-99) Mean Corpuscular Hemoglobin 29.6 PG (27.0-31.0) Mean Corpuscular Hemoglobin Concent 34.3 G/DL (32.0-36.0) Red Cell Distribution Width 12.6 % (11.6-14.8) Platelet Count 197 K/UL (150-450) Mean Platelet Volume 8.5 FL (6.5-10.1) Neutrophils (%) (Auto) 59.3 % (45.0-75.0) Lymphocytes (%) (Auto) 30.3 % (20.0-45.0) Monocytes (%) (Auto) 8.2 % (1.0-10.0) Eosinophils (%) (Auto) 1.2 % (0.0-3.0) Basophils (%) (Auto) 1.0 % (0.0-2.0) Prothrombin Time 9.5 SEC (9.30-11.50) Prothrombin Time INR 0.9 (0.9-1.1) PTT 25 SEC (23-33) Sodium Level 136 MMOL/L (136-145) Potassium Level 4.2 MMOL/L (3.5-5.1) Chloride Level 104 MMOL/L (98-107) Carbon Dioxide Level 26 MMOL/L (21-32) Anion Gap 6 mmol/L (5-15) Blood Urea Nitrogen 13 mg/dL (7-18) Creatinine 0.8 MG/DL (0.55-1.30) Estimate Glomerular Filtration Rate > 60 mL/min (>60) Glucose Level 255 MG/DL (74-106) H Calcium Level 9.1 MG/DL (8.5-10.1) Total Bilirubin 0.4 MG/DL (0.2-1.0) Aspartate Amino Transferase (AST) 23 U/L (15-37) Alanine Aminotransferase (ALT) 46 U/L (12-78) Alkaline Phosphatase 78 U/L (46-116) Total Creatine Kinase 312 U/L (26-308) H Troponin I 0.000 ng/mL (0.000-0.056) Pro-B-Type Natriuretic Peptide 117 pg/mL (0-125) Total Protein 6.6 G/DL (6.4-8.2) Albumin 3.6 G/DL (3.4-5.0) Globulin 3.0 g/dL Albumin/Globulin Ratio 1.2 (1.0-2.7) EKG Diagnostic Results Rate: normal Rhythm: NSR ST Segments: no acute changes Rhythm Strip Diag. Results EP Interpretation: yes Rhythm: NSR, no PVC's, no ectopy Chest X-Ray Diagnostic Results Chest X-Ray Diagnostic Results : Chest X-Ray Ordered: Yes # of Views/Limited/Complete: 1 View Indication: Chest Pain EP Interpretation: Yes Interpretation: no consolidation, no effusion, no pneumothorax Impression: No acute disease Electronically Signed by: Electronically signed by Will Fay MD Last Vital Signs Date Time Temp Pulse Resp B/P (MAP) Pulse Ox O2 Delivery O2 Flow Rate FiO2 01/06/19 14:28 93 18 100 Room Air 21 01/06/19 14:25 117/67 01/06/19 13:55 98.1 Status: improved Disposition: ADMITTED INPATIENT Condition: Serious Will Fay MD Jan 06, 2019 14:10
[2019-01-06] MEDS ORDERED: Nitroglycerin 2% oint pkt TOPIC ONE (14:15)
[2019-01-06] MEDS ORDERED: Albuterol ud Inhalation HHN ONE (14:15)
[2019-01-06] MEDS ORDERED: Morphine Sulfate 4mg/ml Inj (IV USE ONLY) IVP ONE (14:15)
[2019-01-06] MEDS ORDERED: Ipratropium 0.02% Inh Soln 2.5ml UD HHN ONE (14:15)
[2019-01-06 15:01] LABS: EOSINOPHILS % (AUTO) 1.2 % (0.0-3.0); HEMATOCRIT 42.3 % (42.0-52.0); HEMOGLOBIN 14.5 G/DL (14.2-18.0); LYMPHOCYTES % (AUTO) 30.3 % (20.0-45.0); MEAN CORPUSCULAR VOLUME 86 FL (80-99); MONOCYTES % (AUTO) 8.2 % (1.0-10.0); NEUTROPHILS % (AUTO) 59.3 % (45.0-75.0); PLATELET COUNT 197 K/UL (150-450); RED BLOOD COUNT 4.91 M/UL (4.70-6.10); RED CELL DISTRIBUTION WIDTH 12.6 % (11.6-14.8)
--- NOTE | 2019-01-06 15:04 | Diagnostic Imaging Report ---
Indication: Chest pain Technique: One view of the chest Comparison: 12/01/2018 Findings: Lungs and pleural spaces are clear. Heart size is normal . No significant interim change Impression: No acute process
[2019-01-06 15:11] LABS: INR 0.9 (0.9-1.1)
[2019-01-06 15:15] LABS: ANION GAP 6 mmol/L (5-15); BLOOD UREA NITROGEN 13 mg/dL (7-18); CALCIUM 9.1 MG/DL (8.5-10.1); CARBON DIOXIDE 26 MMOL/L (21-32); CHLORIDE 104 MMOL/L (98-107); CREATININE 0.8 MG/DL (0.55-1.30); POTASSIUM 4.2 MMOL/L (3.5-5.1); SODIUM 136 MMOL/L (136-145)
[2019-01-06 15:26] LABS: ALANINE AMINOTRANSFERASE 46 U/L (12-78); ALBUMIN 3.6 G/DL (3.4-5.0); ALBUMIN/GLOBULIN RATIO 1.2 (1.0-2.7); ALKALINE PHOSPHATASE 78 U/L (46-116); ASPARTATE AMINO TRANSFERASE 23 U/L (15-37); BILIRUBIN,TOTAL 0.4 MG/DL (0.2-1.0); CREATINE KINASE 312 U/L (26-308)
--- NOTE | 2019-01-06 16:43 | NUR ---
ED Nurse Note: tried to give report to Tele, per charge nurse there is no RN yet to take report
[2019-01-06] MEDS ORDERED: Morphine Sulfate 4mg/ml Inj (IV USE ONLY) IVP PRN (16:45)
--- NOTE | 2019-01-06 16:59 | NUR ---
ED Nurse Note: healing scar noticed on the right side of the head.
--- NOTE | 2019-01-06 17:25 | NUR ---
NURSE NOTES: Patient transferred from ED, Received report from Ed nurse Enriqueta RN. Patient is awake alert and oriented x4, Vital sign are stable. No distress/SOP noted at this time. inventory check done, Heart monitor placed. Paged Dr. Sepulveda and Awaiting for admission order.
[2019-01-06] MEDS ORDERED: Miralax 17gm pkt ORAL PRN (17:59)
[2019-01-06] MEDS ORDERED: Mylanta II UD 30ml ORAL PRN (18:00)
[2019-01-06] MEDS ORDERED: Albuterol/Ipratropium 3ml neb HHN PRN (18:00)
[2019-01-06] MEDS ORDERED: ALPRAZolam 0.5mg tab ORAL PRN (18:00)
[2019-01-06] MEDS ORDERED: LORazepam Inj 2mg/ml 1ml IV PRN (18:00)
[2019-01-06] MEDS ORDERED: Zolpidem 5mg tab ORAL PRN (18:00)
--- NOTE | 2019-01-06 19:34 | NUR ---
HAND-OFF: Report given to JAKE Antonio. Patient is in stable condition. Endorsed plan of care.
--- NOTE | 2019-01-06 19:35 | NUR ---
NURSE NOTES: Received report from Demarcus Farrar RN. Pt is resting in the bed w/o respiratory distress in 2L NC. Pt is able make needs known. IV site is asymptomatic. SR in the monitor. Pt c/o of noise from nesxt room. New room will be arranged later. Seizure precaution is done with suction, padded side rails up x2. Call light and side table are w/in reach. Bed is in the lowest position, bed alarm on and breaks are engaged. Will follow plans of care. Addendum: 01/06/19 at 2030 by KIP MONGE RN Pt was moved to 204-2 w/o incident. BS 407 is noted, will follow protocol and notify PCP.
[2019-01-06 20:00] VITALS: BP 125/70
--- NOTE | 2019-01-06 20:16 | Cardiology Progress Note ---
Assessment/Plan Assessment/Plan The patient is seen and examined, full consult note will be dictated. Objective Last 24 Hour Vital Signs Date Time Temp Pulse Resp B/P (MAP) Pulse Ox O2 Delivery O2 Flow Rate FiO2 01/06/19 18:21 97.7 98 18 95 01/06/19 17:53 Nasal Cannula 2.0 01/06/19 17:35 94 01/06/19 14:28 93 18 100 Room Air 21 01/06/19 14:25 117/67 01/06/19 14:21 90 18 Room Air 21 01/06/19 14:17 90 18 96 Room Air 21 01/06/19 13:55 100 20 Room Air 01/06/19 13:55 98.1 167 20 136/80 100 Room Air 01/06/19 13:36 98.2 103 18 137/80 95 Room Air Laboratory Tests Test 01/06/19 14:30 White Blood Count 9.0 K/UL (4.8-10.8) Red Blood Count 4.91 M/UL (4.70-6.10) Hemoglobin 14.5 G/DL (14.2-18.0) Hematocrit 42.3 % (42.0-52.0) Mean Corpuscular Volume 86 FL (80-99) Mean Corpuscular Hemoglobin 29.6 PG (27.0-31.0) Mean Corpuscular Hemoglobin Concent 34.3 G/DL (32.0-36.0) Red Cell Distribution Width 12.6 % (11.6-14.8) Platelet Count 197 K/UL (150-450) Mean Platelet Volume 8.5 FL (6.5-10.1) Neutrophils (%) (Auto) 59.3 % (45.0-75.0) Lymphocytes (%) (Auto) 30.3 % (20.0-45.0) Monocytes (%) (Auto) 8.2 % (1.0-10.0) Eosinophils (%) (Auto) 1.2 % (0.0-3.0) Basophils (%) (Auto) 1.0 % (0.0-2.0) Prothrombin Time 9.5 SEC (9.30-11.50) Prothromb Time International Ratio 0.9 (0.9-1.1) Activated Partial Thromboplast Time 25 SEC (23-33) Sodium Level 136 MMOL/L (136-145) Potassium Level 4.2 MMOL/L (3.5-5.1) Chloride Level 104 MMOL/L (98-107) Carbon Dioxide Level 26 MMOL/L (21-32) Anion Gap 6 mmol/L (5-15) Blood Urea Nitrogen 13 mg/dL (7-18) Creatinine 0.8 MG/DL (0.55-1.30) Estimat Glomerular Filtration Rate > 60 mL/min (>60) Glucose Level 255 MG/DL (74-106) H Calcium Level 9.1 MG/DL (8.5-10.1) Total Bilirubin 0.4 MG/DL (0.2-1.0) Aspartate Amino Transf (AST/SGOT) 23 U/L (15-37) Alanine Aminotransferase (ALT/SGPT) 46 U/L (12-78) Alkaline Phosphatase 78 U/L (46-116) Total Creatine Kinase 312 U/L (26-308) H Troponin I 0.000 ng/mL (0.000-0.056) Pro-B-Type Natriuretic Peptide 117 pg/mL (0-125) Total Protein 6.6 G/DL (6.4-8.2) Albumin 3.6 G/DL (3.4-5.0) Globulin 3.0 g/dL Albumin/Globulin Ratio 1.2 (1.0-2.7) Hayes Mae MD Jan 06, 2019 20:16
[2019-01-06] MEDS: QUEtiapine 200mg tab ORAL SCH (20:51)
[2019-01-06] MEDS: Depakote 500mg tab ORAL SCH (20:51)
[2019-01-06] MEDS: Morphine Sulfate 2mg/ml Inj(IV/IM USE ONLY) IVP PRN (20:52)
[2019-01-06] MEDS: Heparin 5000 units/ml inj SUBQ SCH (20:54)
[2019-01-06] MEDS ORDERED: NovoLOG Insulin Flexpen SUBQ SCH (21:00)
[2019-01-06] MEDS: Levemir Flexpen SUBQ SCH (22:30)
--- NOTE | 2019-01-07 | NUR ---
NURSE NOTES: BS 407, Novolog 14 unit was given at 2100,rechecked BS 326. Reported to PCP and Dr. Pham placed new Insulin orders. Order carried out. Also, pain med was given. Currently, pt is sleeping w/o distress in 2L NC. Will continue to monitor.
[2019-01-07] MEDS: Morphine Sulfate 2mg/ml Inj(IV/IM USE ONLY) IVP PRN ×5 (00:37→20:22)
--- NOTE | 2019-01-07 03:30 | Consultation ---
DATE OF CONSULTATION: 01/06/2019 CARDIOLOGY CONSULTATION NOTE: INCOMPLETE DICTATION CONSULTING PHYSICIAN: Hayes Mae M.D. REFERRING PHYSICIAN: Aniceto Sepulveda D.O. REASON FOR CONSULTATION: Management of chest pain. HISTORY OF PRESENT ILLNESS: The patient is a very unfortunate 38-year-old gentleman, who presented to the hospital with complaints of left-sided chest pain described as sharp, affecting the left upper precordial area, with intensity of 10/10, and worse with deep inspiration. It did not relieve with aspirin. The patient decided to come to the hospital for further evaluation and management of his condition. Cardiology consultation was made at the request of Dr. Sepulveda for evaluation and management of chest pain. The patient has risk factors of coronary artery disease includes a history of diabetes mellitus, history of hypertension, history of tobacco use about one pack per day, and prior history of cerebrovascular accident in 2018 with left hemiparesis. Initial blood pressure was 137/80 mmHg and pulse of 103. A 12-lead electrocardiogram revealed sinus rhythm with no acute ischemic features. Initial laboratory finding was significant for normal troponin I level at 0 as well as normal proBNP at 117. PAST MEDICAL HISTORY: Hypertension, COPD, diabetes mellitus, gastroesophageal reflux disease, CVA with left hemiparesis, history of seizures, history of peripheral neuropathy, history of head trauma, and history of headaches. PAST SURGICAL HISTORY: None. ALLERGIES: Haloperidol. SOCIAL HISTORY: He smokes about a pack a day. Denies any alcohol or illicit drug use. REVIEW OF SYSTEMS: HEENT: Denies any headache, diplopia, or blurred vision. CONSTITUTIONAL: Denies any fever, chills, night sweats, or weight loss. CARDIOVASCULAR: Complains of chest pain in the left upper precordial area. This is described as sharp. No associated shortness of breath, PND, or orthopnea. PULMONARY: Denies any cough, hemoptysis, or wheezing. GASTROINTESTINAL: Denies any nausea, vomiting, diarrhea, constipation, abdominal pain, or GI bleed. GENITOURINARY: Denies any hematuria, dysuria, or incontinence. NEUROLOGICAL: Denies any motor dysfunction, sensory deficit, or altered speech at this time, but the patient, however, had history of stroke with left hemiparesis. MEDICATIONS: List of medication in the outpatient setting includes Xanax 0.5 mg q.6 h. p.r.n. anxiety, aspirin 81 mg daily, clonidine 0.1 mg q.4 h. p.r.n. hypertension, Depakote 500 mg q.12 h., Lexapro 10 mg daily, insulin aspart 15 units subcutaneous before meals, insulin aspart subcutaneous before meals p.r.n., insulin glargine, Lantus 30 units subcutaneous at bedtime, DuoNeb 3 mL HHN q.4 h. p.r.n. shortness of breath, and Seroquel 200 mg nightly. PHYSICAL EXAMINATION: VITAL SIGNS: Blood pressure was 137/80, pulse 103, respirations 18, and temperature 98.2 degrees Fahrenheit. O2 saturation 95% on room air. GENERAL: The patient is a very unfortunate 38-year-old gentleman, in no apparent respiratory distress. Alert and oriented x4. HEENT: Atraumatic and normocephalic. Anicteric. Pupils are equal, round, and reactive to light and accommodation. Extraocular muscles intact. NECK: JVP less than 5 cm. No carotid bruit. Carotid upstroke is 2+ bilaterally. CARDIOVASCULAR: Normal S1, S2. Regular rate and rhythm. No murmurs, gallops, or rubs. LUNGS: Clear to auscultation bilaterally. ABDOMEN: Soft, nontender, and nondistended. No hepatosplenomegaly. Positive bowel sounds. EXTREMITIES: No evidence of edema, clubbing, or cyanosis. LABORATORY FINDINGS: WBC 9.3, hemoglobin 15.5, hematocrit 42.3% and platelet count 197. Sodium is 136, potassium 4.2, chloride 104, bicarbonate 26, BUN 13, and creatinine 0.8. Glucose is 255. Calcium is 9.1. Troponin I is 0. ProBNP is 117. IMAGING: Chest x-ray reveals no acute cardiopulmonary disease. ASSESSMENT AND PLAN: The patient is a very unfortunate 38-year-old gentleman, who is seen in Cardiology consultation. 1. Atypical/noncardiac chest pain. The patient has had full cardiac workup both in month of January 2018 as well as July 2018 including a nonischemic nuclear stress test in January 2018 as well as 2-D echocardiography later, which revealed normal LV systolic function with LVEF of about 60% to 65%. A 12-lead electrocardiogram this admission does not show any ischemic features. First troponin I level is negative. I would like to obtain another troponin I level to ultimately rule out myocardial infarction. Normal beta-natriuretic peptide also rules out congestive heart failure. 2. Continue with modification of the risk factors including diabetes mellitus, treatment of hypertension. . DICTATION ENDS ABRUPTLY Hayes Mae M.D. DR: JOSE E JOB#: [id number] CC:
[2019-01-07 04:00] VITALS: BP 105/68
--- NOTE | 2019-01-07 05:51 | NUR ---
NURSE NOTES: BS 181 noted, pt refused to have insulin at this time. Will continue to monitor.
[2019-01-07] MEDS: NovoLOG Insulin Flexpen SUBQ SCH ×6 (06:26→20:26)
--- NOTE | 2019-01-07 06:41 | General Progress Note ---
Assessment/Plan Problem List: (1) Chest pain ICD Codes: R07.9 - Chest pain, unspecified SNOMED: 75717425 Qualifiers: Qualified Codes: R07.9 - Chest pain, unspecified (2) Hyperglycemia ICD Codes: R73.9 - Hyperglycemia, unspecified SNOMED: 61743547 (3) COPD (chronic obstructive pulmonary disease) ICD Codes: J44.9 - Chronic obstructive pulmonary disease, unspecified SNOMED: 23954384 (4) Diabetes mellitus ICD Codes: E11.9 - Diabetes mellitus SNOMED: 69891348 Assessment/Plan continue Levemir 18 units bid add Novolog 7 units ac tid continue NISS ac / hs Subjective Allergies: Coded Allergies: HALOPERIDOL (Verified Allergy, Unknown, 11/30/18) All Systems: reviewed and negative except above Subjective presented with chest pain he is known to me hx of insulin dependent diabetes Item Value Date Time Bedside Blood Glucose 181 mg/dl H 01/07/19 0626 Bedside Blood Glucose 326 mg/dl H 01/06/19 2230 Objective Last 24 Hour Vital Signs Date Time Temp Pulse Resp B/P (MAP) Pulse Ox O2 Delivery O2 Flow Rate FiO2 01/07/19 00:44 74 01/06/19 21:00 Nasal Cannula 2.0 01/06/19 20:00 86 18 Room Air 21 01/06/19 19:01 93 01/06/19 18:21 97.7 98 18 95 01/06/19 17:53 Nasal Cannula 2.0 01/06/19 17:35 94 01/06/19 14:28 93 18 100 Room Air 21 01/06/19 14:25 117/67 01/06/19 14:21 90 18 Room Air 21 01/06/19 14:17 90 18 96 Room Air 21 01/06/19 13:55 100 20 Room Air 01/06/19 13:55 98.1 167 20 136/80 100 Room Air 01/06/19 13:36 98.2 103 18 137/80 95 Room Air Intake and Output 01/06/19 01/07/19 19:00 07:00 Output Total 0 ml Balance 0 ml Output Urine Total 0 ml # Voids 1 Laboratory Tests 01/06/19 14:30: White Blood Count 9.0, Red Blood Count 4.91, Hemoglobin 14.5, Hematocrit 42.3, Mean Corpuscular Volume 86, Mean Corpuscular Hemoglobin 29.6, Mean Corpuscular Hemoglobin Concent 34.3, Red Cell Distribution Width 12.6, Platelet Count 197, Mean Platelet Volume 8.5, Neutrophils (%) (Auto) 59.3, Lymphocytes (%) (Auto) 30.3, Monocytes (%) (Auto) 8.2, Eosinophils (%) (Auto) 1.2, Basophils (%) (Auto ) 1.0, Prothrombin Time 9.5, Prothromb Time International Ratio 0.9, Activated Partial Thromboplast Time 25, Sodium Level 136, Potassium Level 4.2, Chloride Level 104, Carbon Dioxide Level 26, Anion Gap 6, Blood Urea Nitrogen 13, Creatinine 0.8, Estimat Glomerular Filtration Rate > 60, Glucose Level 255H, Calcium Level 9.1, Total Bilirubin 0.4, Aspartate Amino Transf (AST/SGOT) 23, Alanine Aminotransferase (ALT/SGPT) 46, Alkaline Phosphatase 78, Total Creatine Kinase 312H, Troponin I 0.000, Pro-B-Type Natriuretic Peptide 117, Total Protein 6.6, Albumin 3.6, Globulin 3.0, Albumin/Globulin Ratio 1.2 Height (Feet): 5 Height (Inches): 11.00 Weight (Pounds): 261 General Appearance: no apparent distress Neck: normal alignment Cardiovascular: normal rate Respiratory/Chest: lungs clear Abdomen: normal bowel sounds Objective Current Medications Medications (Trade) Dose Ordered Sig/Sofia Route PRN Reason Start Time Stop Time Status Last Admin Dose Admin Acetaminophen (Tylenol) 650 mg Q4H PRN ORAL fever 01/06/19 18:00 02/05/19 17:59 Al Hydroxide/Mg Hydroxide (Mylanta II) 30 ml Q6H PRN ORAL dyspepsia 01/06/19 18:00 02/05/19 17:59 Albuterol/ Ipratropium (Albuterol/ Ipratropium) 3 ml Q4H PRN HHN Shortness of Breath 01/06/19 18:00 01/11/19 17:59 Alprazolam (Xanax) 0.5 mg Q6H PRN ORAL For Anxiety 01/06/19 18:00 01/13/19 17:59 Aspirin (ASA) 81 mg DAILY ORAL 01/07/19 09:00 02/06/19 08:59 Clonidine HCl (Catapres Tab) 0.1 mg Q4H PRN ORAL For High Blood Pressure 01/06/19 18:15 02/05/19 18:14 Dextrose (Dextrose 50%) 25 ml Q30M PRN IV Hypoglycemia 01/06/19 18:00 02/05/19 17:59 Dextrose (Dextrose 50%) 50 ml Q30M PRN IV Hypoglycemia 01/06/19 18:00 02/05/19 17:59 Divalproex Sodium (Depakote) 500 mg Q12HR ORAL 01/06/19 21:00 02/05/19 20:59 01/06/19 20:51 Escitalopram Oxalate (Lexapro) 10 mg DAILY ORAL 01/07/19 09:00 02/06/19 08:59 Heparin Sodium (Porcine) (Heparin 5000 units/ml) 5,000 units EVERY 12 HOURS SUBQ 01/06/19 21:00 02/05/19 20:59 01/06/19 20:54 Insulin Aspart (NovoLOG) BEFORE MEALS AND HS SUBQ 01/07/19 06:30 02/05/19 20:59 Insulin Detemir (Levemir) 18 units EVERY 12 HOURS SUBQ 01/06/19 22:30 02/05/19 22:29 01/06/19 22:30 Lorazepam (Ativan 2mg/ml 1ml) 0.5 mg Q4H PRN IV For Anxiety 01/06/19 18:00 01/13/19 17:59 Morphine Sulfate (Morphine Sulfate) 1 mg Q4H PRN IVP For Pain 01/06/19 18:00 01/13/19 17:59 01/07/19 05:48 Ondansetron HCl (Zofran) 4 mg Q6H PRN IVP Nausea & Vomiting 01/06/19 18:00 02/05/19 17:59 01/06/19 20:55 Polyethylene Glycol (Miralax) 17 gm HSPRN PRN ORAL Constipation 01/06/19 17:59 02/05/19 17:58 Quetiapine Fumarate (SEROquel) 200 mg BEDTIME ORAL 01/06/19 21:00 02/05/19 20:59 01/06/19 20:51 Zolpidem Tartrate (Ambien) 5 mg HSPRN PRN ORAL Insomnia 01/06/19 18:00 01/13/19 17:59 Tavo Malhotra MD Jan 07, 2019 06:41
--- NOTE | 2019-01-07 07:33 | NUR ---
HAND-OFF: Report given to Demarcus Rick RN. Endorsed that pt refused insulin, BS 181.
--- NOTE | 2019-01-07 07:42 | NUR ---
CASE MANAGEMENT:REVIEW 38 YR OLD MALE FROM HOME TO ER CC: CHEST PAIN RADIATING TO LT ARM SI: ACUTE CORONARY SYNDROME. HYPERGLYCEMIA 98.3 103 18 137/80 95% ON RA GLUCOSE+312 IS: DUONEB HHN ASA PO NITRO 1" IV MORPHINE IV ZOFRAN IV PEPCID CHEST XRAY : TO TELEMETRY
--- NOTE | 2019-01-07 07:48 | NUR ---
INTERQUAL CRITERIA MET FOR OBSERVATION
--- NOTE | 2019-01-07 07:59 | NUR ---
NURSE NOTES: Pt in bed, in low position, call light at bedside, bed alarm on, pt has bathroom privileges, pt Ox4, calm and cooperative, has history of readmissions and likes to leave the unit to smoke, pt IV LT F 20 g patent and asymptomatic, pt complains of pain and level reported by pt is 5 out of 10, MS given earlier, no s/s of distress or sob noted.
[2019-01-07 08:00] VITALS: BP 110/66
[2019-01-07] MEDS: Heparin 5000 units/ml inj SUBQ SCH ×2 (09:00→20:26)
[2019-01-07] MEDS ORDERED: Aspirin Baby 81mg ORAL SCH (09:00)
[2019-01-07] MEDS: Depakote 500mg tab ORAL SCH ×2 (09:20→20:22)
[2019-01-07] MEDS: Levemir Flexpen SUBQ SCH ×2 (09:25→20:26)
[2019-01-07 10:53] LABS: BASOPHILS % (AUTO) 0.9 % (0.0-2.0); EOSINOPHILS % (AUTO) 1.9 % (0.0-3.0); HEMATOCRIT 41.2 % (42.0-52.0); HEMOGLOBIN 14.2 G/DL (14.2-18.0); LYMPHOCYTES % (AUTO) 30.7 % (20.0-45.0); MEAN CORPUSCULAR VOLUME 87 FL (80-99); MONOCYTES % (AUTO) 7.3 % (1.0-10.0); NEUTROPHILS % (AUTO) 59.3 % (45.0-75.0); PLATELET COUNT 166 K/UL (150-450); RED BLOOD COUNT 4.74 M/UL (4.70-6.10); RED CELL DISTRIBUTION WIDTH 12.4 % (11.6-14.8); WHITE BLOOD COUNT 7.9 K/UL (4.8-10.8)
[2019-01-07 11:26] LABS: ALANINE AMINOTRANSFERASE 50 U/L (12-78); ALBUMIN 3.2 G/DL (3.4-5.0); ALBUMIN/GLOBULIN RATIO 1.1 (1.0-2.7); ALKALINE PHOSPHATASE 71 U/L (46-116); ANION GAP 7 mmol/L (5-15); ASPARTATE AMINO TRANSFERASE 24 U/L (15-37); BILIRUBIN,TOTAL 0.4 MG/DL (0.2-1.0); BLOOD UREA NITROGEN 11 mg/dL (7-18); CARBON DIOXIDE 28 MMOL/L (21-32); CHLORIDE 101 MMOL/L (98-107); CHOLESTEROL 120 MG/DL (< 200); HDL CHOLESTEROL 25 MG/DL (40-60); POTASSIUM 3.9 MMOL/L (3.5-5.1); SODIUM 136 MMOL/L (136-145); TRIGLYCERIDES 198 MG/DL (30-150)
[2019-01-07 12:00] VITALS: BP 121/73
--- NOTE | 2019-01-07 12:22 | Consultation ---
History of Present Illness General Chief Complaint: Chest Pain Present Illness Allergies: Coded Allergies: HALOPERIDOL (Verified Allergy, Unknown, 11/30/18) Medication History Scheduled Aspirin* (Aspirin*), 81 MG ORAL DAILY, (Reported) Divalproex Sodium* (Depakote*), 500 MG PO Q12HR, (Reported) Escitalopram Oxalate* (Lexapro*), 10 MG ORAL DAILY, (Reported) Insulin Aspart (Novolog), 15 UNIT SQ BEFORE MEALS, (Reported) Insulin Glargine (Lantus), 30 UNITS SUBQ BEDTIME, (Reported) Quetiapine Fumarate* (Seroquel*), 200 MG ORAL BEDTIME, (Reported) Scheduled PRN Alprazolam* (Xanax*), 0.5 MG PO Q6HR PRN for For Anxiety, (Reported) Clonidine Hcl* (Catapres*), 0.1 MG ORAL Q4HR PRN for For High Blood Pressure, ( Reported) Insulin Aspart (Novolog), 0 SQ BEFORE MEALS PRN for Sliding Scale, (Reported) Ipratropium/Albuterol Sulfate (DuoNeb 0.5-3(2.5)mg/3ml), 3 ML HHN Q4HR PRN for Shortness of Breath, (Reported) Patient History Healthcare decision maker Resuscitation status Advanced Directive on File Past Medical/Surgical History Past Medical/Surgical History: (1) Chiari malformation type II (2) Peripheral neuropathy (3) Diabetes mellitus (4) COPD (chronic obstructive pulmonary disease) (5) CVA (cerebral vascular accident) Review of Systems All Other Systems: negative except mentioned in HPI Physical Exam General Appearance: WD/WN Lines, tubes and drains: peripheral HEENT: normocephalic, atraumatic Neck: non-tender, normal alignment Respiratory/Chest: chest wall non-tender, lungs clear Breasts: no masses Cardiovascular/Chest: normal rate, no JVD Abdomen: normal bowel sounds, non tender Genitourinary/Rectal: normal genital exam Extremities: normal range of motion Skin Exam: normal pigmentation Last 24 Hour Vital Signs Date Time Temp Pulse Resp B/P (MAP) Pulse Ox O2 Delivery O2 Flow Rate FiO2 01/07/19 12:00 98.0 87 18 121/73 (89) 95 01/07/19 11:27 98.5 01/07/19 08:27 Nasal Cannula 2.0 01/07/19 08:00 98.5 87 20 110/66 (81) 94 01/07/19 07:48 87 01/07/19 04:00 74 01/07/19 04:00 97.4 75 22 105/68 (80) 97 01/07/19 00:44 74 01/06/19 21:00 Nasal Cannula 2.0 01/06/19 20:00 86 18 Room Air 21 01/06/19 20:00 98.7 91 22 125/70 (88) 100 01/06/19 19:01 93 01/06/19 18:21 97.7 98 18 95 01/06/19 17:53 Nasal Cannula 2.0 01/06/19 17:35 94 01/06/19 14:28 93 18 100 Room Air 21 01/06/19 14:25 117/67 01/06/19 14:21 90 18 Room Air 21 01/06/19 14:17 90 18 96 Room Air 21 01/06/19 13:55 100 20 Room Air 01/06/19 13:55 98.1 167 20 136/80 100 Room Air 01/06/19 13:36 98.2 103 18 137/80 95 Room Air Intake and Output 01/06/19 01/07/19 19:00 07:00 Output Total 0 ml Balance 0 ml Output Urine Total 0 ml # Voids 1 Laboratory Tests Test 01/06/19 14:30 01/07/19 10:40 White Blood Count 9.0 K/UL (4.8-10.8) 7.9 K/UL (4.8-10.8) Red Blood Count 4.91 M/UL (4.70-6.10) 4.74 M/UL (4.70-6.10) Hemoglobin 14.5 G/DL (14.2-18.0) 14.2 G/DL (14.2-18.0) Hematocrit 42.3 % (42.0-52.0) 41.2 % (42.0-52.0) L Mean Corpuscular Volume 86 FL (80-99) 87 FL (80-99) Mean Corpuscular Hemoglobin 29.6 PG (27.0-31.0) 30.0 PG (27.0-31.0) Mean Corpuscular Hemoglobin Concent 34.3 G/DL (32.0-36.0) 34.5 G/DL (32.0-36.0) Red Cell Distribution Width 12.6 % (11.6-14.8) 12.4 % (11.6-14.8) Platelet Count 197 K/UL (150-450) 166 K/UL (150-450) Mean Platelet Volume 8.5 FL (6.5-10.1) 8.6 FL (6.5-10.1) Neutrophils (%) (Auto) 59.3 % (45.0-75.0) 59.3 % (45.0-75.0) Lymphocytes (%) (Auto) 30.3 % (20.0-45.0) 30.7 % (20.0-45.0) Monocytes (%) (Auto) 8.2 % (1.0-10.0) 7.3 % (1.0-10.0) Eosinophils (%) (Auto) 1.2 % (0.0-3.0) 1.9 % (0.0-3.0) Basophils (%) (Auto) 1.0 % (0.0-2.0) 0.9 % (0.0-2.0) Prothrombin Time 9.5 SEC (9.30-11.50) Prothromb Time International Ratio 0.9 (0.9-1.1) Activated Partial Thromboplast Time 25 SEC (23-33) Sodium Level 136 MMOL/L (136-145) 136 MMOL/L (136-145) Potassium Level 4.2 MMOL/L (3.5-5.1) 3.9 MMOL/L (3.5-5.1) Chloride Level 104 MMOL/L (98-107) 101 MMOL/L (98-107) Carbon Dioxide Level 26 MMOL/L (21-32) 28 MMOL/L (21-32) Anion Gap 6 mmol/L (5-15) 7 mmol/L (5-15) Blood Urea Nitrogen 13 mg/dL (7-18) 11 mg/dL (7-18) Creatinine 0.8 MG/DL (0.55-1.30) 1.0 MG/DL (0.55-1.30) Estimat Glomerular Filtration Rate > 60 mL/min (>60) > 60 mL/min (>60) Glucose Level 255 MG/DL (74-106) H 255 MG/DL (74-106) H Calcium Level 9.1 MG/DL (8.5-10.1) 9.0 MG/DL (8.5-10.1) Total Bilirubin 0.4 MG/DL (0.2-1.0) 0.4 MG/DL (0.2-1.0) Aspartate Amino Transf (AST/SGOT) 23 U/L (15-37) 24 U/L (15-37) Alanine Aminotransferase (ALT/SGPT) 46 U/L (12-78) 50 U/L (12-78) Alkaline Phosphatase 78 U/L (46-116) 71 U/L (46-116) Total Creatine Kinase 312 U/L (26-308) H Troponin I 0.000 ng/mL (0.000-0.056) Pro-B-Type Natriuretic Peptide 117 pg/mL (0-125) Total Protein 6.6 G/DL (6.4-8.2) 6.2 G/DL (6.4-8.2) L Albumin 3.6 G/DL (3.4-5.0) 3.2 G/DL (3.4-5.0) L Globulin 3.0 g/dL 3.0 g/dL Albumin/Globulin Ratio 1.2 (1.0-2.7) 1.1 (1.0-2.7) Triglycerides Level 198 MG/DL (30-150) H Cholesterol Level 120 MG/DL (< 200) LDL Cholesterol 72 mg/dL (<100) HDL Cholesterol 25 MG/DL (40-60) L Cholesterol/HDL Ratio 4.8 (3.3-4.4) H Height (Feet): 5 Height (Inches): 11.00 Weight (Pounds): 261 Medications Current Medications Medications (Trade) Dose Ordered Sig/Sofia Route PRN Reason Start Time Stop Time Status Last Admin Dose Admin Acetaminophen (Tylenol) 650 mg Q4H PRN ORAL fever 01/06/19 18:00 02/05/19 17:59 Al Hydroxide/Mg Hydroxide (Mylanta II) 30 ml Q6H PRN ORAL dyspepsia 01/06/19 18:00 02/05/19 17:59 Albuterol/ Ipratropium (Albuterol/ Ipratropium) 3 ml Q4H PRN HHN Shortness of Breath 01/06/19 18:00 01/11/19 17:59 Alprazolam (Xanax) 0.5 mg Q6H PRN ORAL For Anxiety 01/06/19 18:00 01/13/19 17:59 Aspirin (ASA) 81 mg DAILY ORAL 01/07/19 09:00 02/06/19 08:59 01/07/19 09:20 Clonidine HCl (Catapres Tab) 0.1 mg Q4H PRN ORAL For High Blood Pressure 01/06/19 18:15 02/05/19 18:14 Dextrose (Dextrose 50%) 25 ml Q30M PRN IV Hypoglycemia 01/06/19 18:00 02/05/19 17:59 Dextrose (Dextrose 50%) 50 ml Q30M PRN IV Hypoglycemia 01/06/19 18:00 02/05/19 17:59 Divalproex Sodium (Depakote) 500 mg Q12HR ORAL 01/06/19 21:00 02/05/19 20:59 01/07/19 09:20 Escitalopram Oxalate (Lexapro) 10 mg DAILY ORAL 01/07/19 09:00 02/06/19 08:59 01/07/19 09:20 Heparin Sodium (Porcine) (Heparin 5000 units/ml) 5,000 units EVERY 12 HOURS SUBQ 01/06/19 21:00 02/05/19 20:59 01/06/19 20:54 Insulin Aspart (NovoLOG) BEFORE MEALS AND HS SUBQ 01/07/19 06:30 02/05/19 20:59 01/07/19 11:52 Insulin Aspart (NovoLOG) 7 units NOVOTIAC SUBQ 01/07/19 11:50 02/06/19 11:49 01/07/19 11:53 Insulin Detemir (Levemir) 18 units EVERY 12 HOURS SUBQ 01/06/19 22:30 02/05/19 22:29 01/07/19 09:25 Lorazepam (Ativan 2mg/ml 1ml) 0.5 mg Q4H PRN IV For Anxiety 01/06/19 18:00 01/13/19 17:59 Morphine Sulfate (Morphine Sulfate) 1 mg Q4H PRN IVP For Pain 01/06/19 18:00 01/13/19 17:59 01/07/19 10:57 Ondansetron HCl (Zofran) 4 mg Q6H PRN IVP Nausea & Vomiting 01/06/19 18:00 02/05/19 17:59 01/06/19 20:55 Polyethylene Glycol (Miralax) 17 gm HSPRN PRN ORAL Constipation 01/06/19 17:59 02/05/19 17:58 Quetiapine Fumarate (SEROquel) 200 mg BEDTIME ORAL 01/06/19 21:00 02/05/19 20:59 01/06/19 20:51 Zolpidem Tartrate (Ambien) 5 mg HSPRN PRN ORAL Insomnia 01/06/19 18:00 01/13/19 17:59 Assessment/Plan Problem List: (1) Costochondritis ICD Codes: M94.0 - Chondrocostal junction syndrome [Tietze] SNOMED: 29161917 (2) COPD (chronic obstructive pulmonary disease) ICD Codes: J44.9 - Chronic obstructive pulmonary disease, unspecified SNOMED: 25069566 (3) ACS (acute coronary syndrome) ICD Codes: I24.9 - Acute ischemic heart disease, unspecified SNOMED: 841492668 (4) Diabetes mellitus ICD Codes: E11.9 - Diabetes mellitus SNOMED: 83411922 (5) Noncompliance ICD Codes: Z91.19 - Patient's noncompliance with other medical treatment and regimen SNOMED: 6505263 Assessment/Plan respiratory treatment titrate fio2 to sat of 92% serial enzymes cardiology evaluation dvt prophylaxis pain management. Lashanda Pham MD Jan 07, 2019 12:22
[2019-01-07 16:17] VITALS: BP 146/73
--- NOTE | 2019-01-07 16:45 | Consultation ---
DATE OF CONSULTATION: 01/07/2019 NOTE: Poor Audio Quality CONSULTING PHYSICIAN: Charmaine Victor M.D. HISTORY OF PRESENT ILLNESS: The patient is a 38-year-old male patient. He has acute coronary syndrome, diabetes, COPD. The patient also has a history of seizure disorder, , and came into the hospital and complaining of acute coronary syndrome, chest pain, and he has been having extreme mood lability as a result has feelings of hopelessness, helplessness, low energy, poor appetite, loss of interest in activity, and extreme mood lability. He also has underlying diagnosis of schizoaffective, bipolar type. That is why, a psychiatric consultation requested for this patient. I saw and assessed him at bedside. The patient continues to have some confusion, some disorganized thought process, and mood lability. He denies any current suicidal or homicidal ideations. His chief complaint is "I am depressed because of medical problems." PAST MEDICAL HISTORY: He has a history of acute coronary syndrome, has a history of diabetes, and he also has history of seizure disorder. ALLERGIES: He has allergies to Haldol. PSYCHOTROPIC MEDICATIONS ON ADMISSION: He is on Depakote 500 mg q. 12 hours and Seroquel 200 mg at bedtime. He is also on Xanax 0.5 mg every 6 hours p.r.n. anxiety and agitation, Lexapro 10 mg daily. On the medication regimen . SUBSTANCE ABUSE HISTORY: He does have a history of polysubstance abuse details. FAMILY PSYCHIATRIC HISTORY: Denies. DEVELOPMENTAL PROBLEMS: Denies. SOCIAL HISTORY: The patient is currently living in financially supported by [employer] and Medicare. PSYCHIATRIC HISTORY: The patient has schizoaffective, bipolar type. He has had multiple psychiatric admissions. STRENGTHS: He is motivated to get better. . WEAKNESSES: He is impulsive and minimal support system. MENTAL STATUS EXAMINATION: This is a 38-year-old male patient. Appearance is disheveled. Attitude, irritable and agitated. Affect, guarded and restricted. Intellect poor. Mood, depressed and anxious. Motor activity, psychomotor agitation. Attention span is poor. Orientation x2. Speech is pressured. Thought process, disorganized and illogical. Thought content, denies auditory hallucinations or paranoid delusions. Insight and judgment is poor. DIAGNOSIS: Schizoaffective, bipolar type. PLAN: Plan for this patient is to treat him with Depakote 500 q.12 h., Seroquel 200 mg at bedtime, Xanax 0.5 mg every six hours as needed, and Lexapro 10 mg daily. Provided him with 20 minutes of reality-based supportive psychotherapy. I encouraged him to interact appropriately with staff and other patients. A 20 minutes of cognitive behavioral therapy to help him identify automatic negative thoughts and help him convert those negative thoughts to more positive thoughts to reduce depression, anxiety, and suicidality and 20 minutes of cognitive behavioral therapy provided. Chart reviewed. Discussed with staff. Seen and assessed in his room. He is continued to be followed by Psychiatry throughout the hospital course. A 20 minutes of cognitive behavioral therapy provided. I would like to thank Dr. Aniceto Sepulveda for this interesting consultation. Charmaine Victor M.D. DR: MARY JOB#: [id number] CC:
--- NOTE | 2019-01-07 19:22 | NUR ---
HAND-OFF: Report given to Jolanta Presley, transfer order in to [facility] but not bed yet.
--- NOTE | 2019-01-07 19:30 | NUR ---
NURSE NOTES: Report received from Duane JOSEPH. Pt is resting in bed in stable condition. Pt is awake, alert, and oriented x4. Pt is on 2L O2 via nasal cannula and breathing is even and unlabored. No acute distress noted. IV site is L FA #20g and is asymptomatic, patent, and intact. Seizure precautions noted to be in place - side rails padded and suction set up at bedside. Bed is in lowest position with brake engaged and side rails up x2. Call light and side table placed within reach. Will continue to monitor.
[2019-01-07 20:00] VITALS: BP 105/67
--- NOTE | 2019-01-07 20:30 | History and Physical Report ---
DATE OF ADMISSION: 01/06/2019 CONSULTANTS: 1. Hayes Mae M.D. 2. Lashanda Pham M.D. 3. Charmaine Victor M.D. 4. Tavo Malhotra M.D. CHIEF COMPLAINT: Chest pain, shortness of breath, and weakness. BRIEF HISTORY: This is a 38-year-old male, who lives at home, presented to [facility] yesterday with substernal chest pain, sharp, no loss of consciousness, slight dizziness, and no radiation intermittently. The patient diagnosed with the above and admitted to telemetry for further care. Currently, feeling better, slight chest pain, still no complaint otherwise. REVIEW OF SYSTEMS: Slight chest pain. Slight short of breath. No nausea, vomiting, or diarrhea. PAST MEDICAL HISTORY: Includes chronic obstructive pulmonary disease, diabetes, CVA with left-sided weakness, and bipolar. PAST SURGICAL HISTORY: Back surgery and neck surgery. MEDICATIONS: Include NovoLog, aspirin, Lexapro, Levemir, Depakote, Seroquel, heparin, Catapres, Xanax, albuterol, morphine, Ambien, and Ativan. ALLERGIES: Haldol. SOCIAL HISTORY: Positive smoking. No alcohol. No intravenous drug abuse. FAMILY HISTORY: Noncontributory. PHYSICAL EXAMINATION: GENERAL: Calm in bed, oriented x3, and in no acute distress. VITAL SIGNS: Temperature is 98 degrees, pulse 87, respirations 18, and blood pressure 121/73. CARDIOVASCULAR: No murmurs. LUNGS: Distant and clear. ABDOMEN: Bowel sounds positive. Nontender. Nondistended. EXTREMITIES: No cyanosis, clubbing, or edema. NEUROLOGIC: The patient moves all extremities, slightly weak. LABORATORY AND DIAGNOSTIC DATA: Labs, at this time, show CBC is normal. BMP shows glucose 255 and albumin 3.2. Troponin 0.00. INR is 0.9 and PTT is 25. ASSESSMENT: 1. Chest pain. 2. Diabetes. 3. Hyperglycemia. 4. Chronic obstructive pulmonary disease. 5. Malnutrition. 6. CVA with left-sided weakness. 7. Bipolar. PLAN: 1. PT and dietary evaluation. 2. Pain control. 3. CBC and BMP in the morning. 4. Troponin q. 8h. x3. 5. EKG in the a.m. 6. We will continue to follow this patient. 7. Resume home medications. Aniceto Sepulveda D.O. DR: MARIETTA JOB#: [id number] CC:
--- NOTE | 2019-01-07 21:00 | NUR ---
NURSE NOTES: Pending bed placement for patient transfer to med-surg. No bed available at this time. Will continue to monitor.
[2019-01-07] MEDS: QUEtiapine 200mg tab ORAL SCH (21:37)
[2019-01-08] VITALS (15 sets, daily range): BP systolic 89–138; BP diastolic 53–82
--- NOTE | 2019-01-08 | NUR ---
NURSE NOTES: Pending bed placement for patient transfer to med-surg. No bed available at this time. Will continue to monitor.
[2019-01-08] MEDS: Morphine Sulfate 2mg/ml Inj(IV/IM USE ONLY) IVP PRN ×4 (01:23→20:42)
[2019-01-08] MEDS: NovoLOG Insulin Flexpen SUBQ SCH ×5 (06:28→20:52)
--- NOTE | 2019-01-08 06:45 | NUR ---
TRANSFER TO FLOOR: Patient transferred to medical-surgical unit [id number], per MD Pham. Report given to Mor Good RN. cardiac monitor technician removed. Belongings transferred with patient and checked with receiving nurse and patient. Medications given to receiving nurse. Pt is in stable condition upon transfer. Pt is awake, alert, and oriented x4. Pt is on 2L O2 via nasal cannula and breathing is even and unlabored. No acute distress noted. IV site is asymptomatic, patent, and intact. Bed placed in lowest position with brake engaged and side rails up x2. Call light and side table placed within reach. Endorsed plan of care.
--- NOTE | 2019-01-08 06:46 | NUR ---
NURSE NOTES: Patient transferred from Tele unit. A&OX4. IV site patent and intact. Belongings are checked. Bed in lowest position. Call light within reach. Will continue to monitor.
[2019-01-08] MEDS ORDERED: LORazepam Inj 2mg/ml 1ml IV PRN ×3 (07:00→14:24)
[2019-01-08] MEDS ORDERED: Morphine Sulfate 2mg/ml Inj(IV/IM USE ONLY) IVP PRN (07:00)
[2019-01-08] MEDS ORDERED: Mylanta II UD 30ml ORAL PRN ×2 (07:00→14:23)
[2019-01-08] MEDS ORDERED: Zolpidem 5mg tab ORAL PRN ×2 (07:00→14:25)
[2019-01-08] MEDS ORDERED: Albuterol/Ipratropium 3ml neb HHN PRN ×2 (07:00→14:24)
[2019-01-08] MEDS ORDERED: ALPRAZolam 0.5mg tab ORAL PRN ×2 (07:00→14:23)
[2019-01-08] MEDS ORDERED: Miralax 17gm pkt ORAL PRN ×2 (07:00→14:25)
[2019-01-08 07:15] LABS: BASOPHILS % (AUTO) 1.1 % (0.0-2.0); EOSINOPHILS % (AUTO) 2.4 % (0.0-3.0); HEMATOCRIT 42.2 % (42.0-52.0); HEMOGLOBIN 14.7 G/DL (14.2-18.0); MEAN CORPUSCULAR VOLUME 87 FL (80-99); MONOCYTES % (AUTO) 8.9 % (1.0-10.0); NEUTROPHILS % (AUTO) 50.7 % (45.0-75.0); PLATELET COUNT 164 K/UL (150-450); RED BLOOD COUNT 4.87 M/UL (4.70-6.10); RED CELL DISTRIBUTION WIDTH 12.3 % (11.6-14.8); WHITE BLOOD COUNT 7.3 K/UL (4.8-10.8)
[2019-01-08 07:25] LABS: ANION GAP 6 mmol/L (5-15); BLOOD UREA NITROGEN 17 mg/dL (7-18); CALCIUM 9.1 MG/DL (8.5-10.1); CARBON DIOXIDE 28 MMOL/L (21-32); CHLORIDE 101 MMOL/L (98-107); POTASSIUM 3.7 MMOL/L (3.5-5.1); SODIUM 135 MMOL/L (136-145)
--- NOTE | 2019-01-08 07:28 | NUR ---
HAND-OFF: Report given to Connie JOSEPH.
--- NOTE | 2019-01-08 08:13 | NUR ---
NURSE NOTES: Received patient from Connie RN, patient is resting in bed comfortable, no distress noted, bed is locked and in lowest position, call light within reach, will continue to monitor.
--- NOTE | 2019-01-08 08:32 | General Progress Note ---
Assessment/Plan Problem List: (1) ACS (acute coronary syndrome) ICD Codes: I24.9 - Acute ischemic heart disease, unspecified SNOMED: 449781490 (2) Diabetes mellitus ICD Codes: E11.9 - Diabetes mellitus SNOMED: 35542539 (3) COPD (chronic obstructive pulmonary disease) ICD Codes: J44.9 - Chronic obstructive pulmonary disease, unspecified SNOMED: 66387768 (4) CVA (cerebral vascular accident) ICD Codes: I63.9 - Cerebral infarction, unspecified SNOMED: 394274485 Status: unchanged Assessment/Plan pt diet pain control cardio f/u bp bs control cbc bmp am dc plan Subjective Constitutional: Reports: weakness Allergies: Coded Allergies: HALOPERIDOL (Verified Allergy, Unknown, 11/30/18) All Systems: reviewed and negative except above Subjective sl sob sl cp Objective Last 24 Hour Vital Signs Date Time Temp Pulse Resp B/P (MAP) Pulse Ox O2 Delivery O2 Flow Rate FiO2 01/08/19 04:00 97.9 72 18 111/70 (84) 97 01/08/19 00:00 70 01/08/19 00:00 97.4 70 20 96/56 (69) 96 01/07/19 21:00 Nasal Cannula 2.0 01/07/19 20:11 83 18 Room Air 21 01/07/19 20:00 83 01/07/19 20:00 98.5 82 20 105/67 (80) 96 01/07/19 16:41 98.8 01/07/19 16:17 98.8 83 20 146/73 (97) 95 01/07/19 16:15 109 01/07/19 12:00 84 01/07/19 12:00 98.0 87 18 121/73 (89) 95 Intake and Output 01/07/19 01/08/19 19:00 07:00 Intake Total 1060 ml 360 ml Balance 1060 ml 360 ml Intake Oral 1060 ml 360 ml # Voids 1 1 Laboratory Tests 01/07/19 10:40: White Blood Count 7.9, Red Blood Count 4.74, Hemoglobin 14.2, Hematocrit 41.2L, Mean Corpuscular Volume 87, Mean Corpuscular Hemoglobin 30.0, Mean Corpuscular Hemoglobin Concent 34.5, Red Cell Distribution Width 12.4, Platelet Count 166, Mean Platelet Volume 8.6, Neutrophils (%) (Auto) 59.3, Lymphocytes (%) (Auto) 30.7, Monocytes (%) (Auto) 7.3, Eosinophils (%) (Auto) 1.9, Basophils (%) (Auto ) 0.9, Sodium Level 136, Potassium Level 3.9, Chloride Level 101, Carbon Dioxide Level 28, Anion Gap 7, Blood Urea Nitrogen 11, Creatinine 1.0, Estimat Glomerular Filtration Rate > 60, Glucose Level 255H, Calcium Level 9.0, Total Bilirubin 0.4, Aspartate Amino Transf (AST/SGOT) 24, Alanine Aminotransferase ( ALT/SGPT) 50, Alkaline Phosphatase 71, Total Protein 6.2L, Albumin 3.2L, Globulin 3.0, Albumin/Globulin Ratio 1.1, Triglycerides Level 198H, Cholesterol Level 120, LDL Cholesterol 72, HDL Cholesterol 25L, Cholesterol/HDL Ratio 4.8H 01/08/19 05:38: White Blood Count 7.3, Red Blood Count 4.87, Hemoglobin 14.7, Hematocrit 42.2, Mean Corpuscular Volume 87, Mean Corpuscular Hemoglobin 30.1, Mean Corpuscular Hemoglobin Concent 34.8, Red Cell Distribution Width 12.3, Platelet Count 164, Mean Platelet Volume 7.8, Neutrophils (%) (Auto) 50.7, Lymphocytes (%) (Auto) 37.0, Monocytes (%) (Auto) 8.9, Eosinophils (%) (Auto) 2.4, Basophils (%) (Auto ) 1.1, Sodium Level 135L, Potassium Level 3.7, Chloride Level 101, Carbon Dioxide Level 28, Anion Gap 6, Blood Urea Nitrogen 17, Creatinine 1.0, Estimat Glomerular Filtration Rate > 60, Glucose Level 266H, Calcium Level 9.1 Height (Feet): 5 Height (Inches): 11.00 Weight (Pounds): 261 General Appearance: lethargic EENT: normal ENT inspection Neck: normal alignment Cardiovascular: normal peripheral pulses, normal rate, regular rhythm Respiratory/Chest: chest wall non-tender, lungs clear, normal breath sounds Abdomen: normal bowel sounds, non tender, soft Extremities: normal inspection Edema: no edema noted Arm (L), no edema noted Arm (R), no edema noted Leg (L), no edema noted Leg (R), no edema noted Pedal (L), no edema noted Pedal (R), no edema noted Generalized Neurologic: responsive, motor weakness Skin: normal pigmentation, warm/dry Aniceto Sepulveda DO Jan 08, 2019 08:31
[2019-01-08] MEDS ORDERED: Aspirin Baby 81mg ORAL SCH (09:00)
[2019-01-08] MEDS ORDERED: Levemir Flexpen SUBQ SCH (09:00)
[2019-01-08] MEDS ORDERED: Depakote 500mg tab ORAL SCH (09:00)
[2019-01-08] MEDS: Heparin 5000 units/ml inj SUBQ SCH ×3 (10:03→20:33)
[2019-01-08] MEDS ORDERED: NovoLOG Insulin Flexpen SUBQ SCH ×2 (11:30→11:50)
--- NOTE | 2019-01-08 13:11 | General Progress Note ---
Assessment/Plan Problem List: (1) COPD (chronic obstructive pulmonary disease) ICD Codes: J44.9 - Chronic obstructive pulmonary disease, unspecified SNOMED: 06834188 (2) Diabetes mellitus ICD Codes: E11.9 - Diabetes mellitus SNOMED: 37892088 Assessment/Plan continue Levemir 18 units bid continuu Novolog 7 units ac tid continue NISS ac / hs Subjective Allergies: Coded Allergies: HALOPERIDOL (Verified Allergy, Unknown, 11/30/18) All Systems: reviewed and negative except above Subjective events noted Item Value Date Time Bedside Blood Glucose 180 mg/dl H 01/08/19 1204 Bedside Blood Glucose 248 mg/dl H 01/08/19 1004 Bedside Blood Glucose 248 mg/dl H 01/08/19 0630 Bedside Blood Glucose 324 mg/dl H 01/07/19 2100 Bedside Blood Glucose 121 mg/dl H 01/07/19 1650 Objective Last 24 Hour Vital Signs Date Time Temp Pulse Resp B/P (MAP) Pulse Ox O2 Delivery O2 Flow Rate FiO2 01/08/19 11:54 97.9 01/08/19 09:00 Nasal Cannula 2.0 01/08/19 08:28 79 18 Room Air 21 01/08/19 08:00 97.9 93 20 89/56 (67) 01/08/19 04:00 97.9 72 18 111/70 (84) 97 01/08/19 00:00 70 01/08/19 00:00 97.4 70 20 96/56 (69) 96 01/07/19 21:00 Nasal Cannula 2.0 01/07/19 20:11 83 18 Room Air 21 01/07/19 20:00 83 01/07/19 20:00 98.5 82 20 105/67 (80) 96 01/07/19 16:41 98.8 01/07/19 16:17 98.8 83 20 146/73 (97) 95 01/07/19 16:15 109 Intake and Output 01/07/19 01/08/19 19:00 07:00 Intake Total 1060 ml 360 ml Balance 1060 ml 360 ml Intake Oral 1060 ml 360 ml # Voids 1 1 Laboratory Tests 01/08/19 05:38: White Blood Count 7.3, Red Blood Count 4.87, Hemoglobin 14.7, Hematocrit 42.2, Mean Corpuscular Volume 87, Mean Corpuscular Hemoglobin 30.1, Mean Corpuscular Hemoglobin Concent 34.8, Red Cell Distribution Width 12.3, Platelet Count 164, Mean Platelet Volume 7.8, Neutrophils (%) (Auto) 50.7, Lymphocytes (%) (Auto) 37.0, Monocytes (%) (Auto) 8.9, Eosinophils (%) (Auto) 2.4, Basophils (%) (Auto ) 1.1, Sodium Level 135L, Potassium Level 3.7, Chloride Level 101, Carbon Dioxide Level 28, Anion Gap 6, Blood Urea Nitrogen 17, Creatinine 1.0, Estimat Glomerular Filtration Rate > 60, Glucose Level 266H, Calcium Level 9.1 Height (Feet): 5 Height (Inches): 11.00 Weight (Pounds): 261 General Appearance: no apparent distress Neck: normal alignment Cardiovascular: normal rate Respiratory/Chest: lungs clear Abdomen: normal bowel sounds Objective Current Medications Medications (Trade) Dose Ordered Sig/Sofia Route PRN Reason Start Time Stop Time Status Last Admin Dose Admin Acetaminophen (Tylenol) 650 mg Q4H PRN ORAL fever 01/08/19 10:00 02/05/19 17:59 Al Hydroxide/Mg Hydroxide (Mylanta II) 30 ml Q6H PRN ORAL dyspepsia 01/08/19 07:00 02/05/19 06:59 Albuterol/ Ipratropium (Albuterol/ Ipratropium) 3 ml Q4H PRN HHN Shortness of Breath 01/08/19 07:00 01/11/19 06:59 Alprazolam (Xanax) 0.5 mg Q6H PRN ORAL For Anxiety 01/08/19 07:00 01/13/19 06:59 Aspirin (ASA) 81 mg DAILY ORAL 01/08/19 09:00 02/06/19 08:59 01/08/19 10:01 Clonidine HCl (Catapres Tab) 0.1 mg Q4H PRN ORAL For High Blood Pressure 01/08/19 07:00 02/05/19 06:59 Dextrose (Dextrose 50%) 25 ml Q30M PRN IV Hypoglycemia 01/08/19 07:00 02/05/19 17:59 Dextrose (Dextrose 50%) 50 ml Q30M PRN IV Hypoglycemia 01/08/19 07:00 02/05/19 17:59 Divalproex Sodium (Depakote) 500 mg Q12HR ORAL 01/08/19 09:00 02/05/19 20:59 01/08/19 10:02 Escitalopram Oxalate (Lexapro) 10 mg DAILY ORAL 01/08/19 09:00 02/06/19 08:59 01/08/19 10:01 Heparin Sodium (Porcine) (Heparin 5000 units/ml) 5,000 units EVERY 12 HOURS SUBQ 01/08/19 09:00 02/05/19 20:59 Insulin Aspart (NovoLOG) BEFORE MEALS AND HS SUBQ 01/08/19 11:30 02/05/19 20:59 01/08/19 12:04 Insulin Aspart (NovoLOG) 7 units NOVOTIAC SUBQ 01/08/19 11:50 02/06/19 11:49 01/08/19 12:04 Insulin Detemir (Levemir) 18 units EVERY 12 HOURS SUBQ 01/08/19 09:00 02/05/19 22:29 01/08/19 10:04 Lorazepam (Ativan 2mg/ml 1ml) 0.5 mg Q4H PRN IV For Anxiety 01/08/19 07:00 01/13/19 06:59 Morphine Sulfate (Morphine Sulfate) 1 mg Q4H PRN IVP For Pain 01/08/19 07:00 01/13/19 06:59 01/08/19 11:24 Ondansetron HCl (Zofran) 4 mg Q6H PRN IVP Nausea & Vomiting 01/08/19 07:00 02/05/19 06:59 Polyethylene Glycol (Miralax) 17 gm HSPRN PRN ORAL Constipation 01/08/19 07:00 02/05/19 06:59 Quetiapine Fumarate (SEROquel) 200 mg BEDTIME ORAL 01/08/19 21:00 02/05/19 20:59 Zolpidem Tartrate (Ambien) 5 mg HSPRN PRN ORAL Insomnia 01/08/19 07:00 01/13/19 06:59 Tavo Malhotra MD Jan 08, 2019 13:11
--- NOTE | 2019-01-08 13:55 | NUR ---
CHARGE NURSE NOTES: OBTAINED ORDER FROM DR. KEEN TO CONTACT DR. SMITH AND KRISTEN FOR SEIZURE. DR. PETERSON WITH ORDERS TO DO STAT EEG, STAT CAT SCAN OF HEAD, DEPAKOTE 500MG IVP X1. TRANSFER TO ICU. NOTED, CARRIED OUT. CALLED [facility], PER HIM WILL SEE PATIENT IN AN HOUR. ICU NURSE MADE AWARE.
--- NOTE | 2019-01-08 14:00 | NUR ---
NURSE NOTES: Patient transferred from 4E to ICU for seizure activity. Patient now is awake, alert and oriented a bit drowsy. L FA 20G, ST on the monitor at 104. 138/69, 96% SpO2 while on 2L NC. Side rails are padded. Neurologist at bedside assessing patient. NAd at this time not seizure activity at this time.
--- NOTE | 2019-01-08 14:00 | NUR ---
At 1300 patient walked to nurses station and notified this RN that he felt as though he was going to have a seizure, this RN escorted patient back to his room and had the patient lie down on the bed, 1308 patient then proceeded to have a seizure, charge nurse notified and then rapid response called as seizure was continuing, loader malt house notified and rapid response team arrived, HR 113, R: 24, O2: 100 with non rebreather at 10LPM, unable to obtain BP due to movemenDr. Derick made aware and ordered us to call Dr. Pham and Dr. Maguire, charge nurse obtained order for ativan, ativan administered per rapid response override rules under direction of nursing bottle house cleaners supervisor Adrianne, seizure activity stopped at 1322 and patient was able to state name and place, and rapid response team left, RN stayed with patient and a second seizure began at 1325, second rapid response called, team arrived ativan administered, seizure activity stopped at 1340 patient alert and oriented x 3 with minimal pupillary response, HR: 106 R: 20, O2:100% 10L nonrebreather, order obtained to admit patient to ICU, patient transferred to ICU by RN, report given to Sai JOSEPH in ICU.
[2019-01-08] MEDS ORDERED: Valproate Sodium INJ 500 MG in D5W 55 ML IV SCH ×4 (15:00)
--- NOTE | 2019-01-08 15:00 | NUR ---
NURSE NOTES: Patient refusing MRSA screen and VRE screen as per ICU admission protocol.
--- NOTE | 2019-01-08 15:14 | Pulmonolgy Critical Care Note ---
Critical Care - Asmt/Plan Problems: (1) Uncontrolled seizures (2) COPD (chronic obstructive pulmonary disease) (3) Diabetes mellitus Respiratory: monitor respiratory rate, adjust FIO2, CXR Cardiac: continue to monitor HR/BP Renal: F/U I&O Infectious Disease: check cultures, continue antibiotics Gastrointestinal: hold feedings Endocrine: monitor blood sugar Hematologic: monitor H/H, transfuse if hgb<8.5 Neurologic: PRN Ativan, PRN Morphine, keep patient comfortable Affect: PRN ativan Prophylaxis: Heparin Time Spent (Minutes): 40 Notes Reviewed: cardio, ID, neuro Discussed with: nurses, consultants Critical Care - Objective Last 24 Hour Vital Signs Date Time Temp Pulse Resp B/P (MAP) Pulse Ox O2 Delivery O2 Flow Rate FiO2 01/08/19 14:05 98.4 111 19 128/82 (97) 100 01/08/19 14:00 98.6 125 30 138/69 (92) 96 01/08/19 12:00 98.1 89 19 116/63 (80) 89 01/08/19 11:54 97.9 01/08/19 09:00 Nasal Cannula 2.0 01/08/19 08:28 79 18 Room Air 21 01/08/19 08:00 97.9 93 20 89/56 (67) 01/08/19 04:00 97.9 72 18 111/70 (84) 97 01/08/19 00:00 70 01/08/19 00:00 97.4 70 20 96/56 (69) 96 01/07/19 21:00 Nasal Cannula 2.0 01/07/19 20:11 83 18 Room Air 21 01/07/19 20:00 83 01/07/19 20:00 98.5 82 20 105/67 (80) 96 01/07/19 16:41 98.8 01/07/19 16:17 98.8 83 20 146/73 (97) 95 01/07/19 16:15 109 Status: somnolent Condition: improving HEENT: atraumatic Neck: full ROM Lungs: clear Heart: HR/BP stable Abdomen: soft Extremities: no C/C/E Decubiti: stage Accucheck: 180 Critical Care - Subjective ROS Limited/Unobtainable: Yes Interval Events: transferred to ICU for recurrent seizures. FI02: 21 Sputum Amount: None I&O: Intake and Output 01/07/19 01/08/19 19:00 07:00 Intake Total 1060 ml 360 ml Balance 1060 ml 360 ml Intake Oral 1060 ml 360 ml # Voids 1 1 CXR: no changes Labs: Laboratory Tests Test 01/08/19 05:38 White Blood Count 7.3 K/UL (4.8-10.8) Red Blood Count 4.87 M/UL (4.70-6.10) Hemoglobin 14.7 G/DL (14.2-18.0) Hematocrit 42.2 % (42.0-52.0) Mean Corpuscular Volume 87 FL (80-99) Mean Corpuscular Hemoglobin 30.1 PG (27.0-31.0) Mean Corpuscular Hemoglobin Concent 34.8 G/DL (32.0-36.0) Red Cell Distribution Width 12.3 % (11.6-14.8) Platelet Count 164 K/UL (150-450) Mean Platelet Volume 7.8 FL (6.5-10.1) Neutrophils (%) (Auto) 50.7 % (45.0-75.0) Lymphocytes (%) (Auto) 37.0 % (20.0-45.0) Monocytes (%) (Auto) 8.9 % (1.0-10.0) Eosinophils (%) (Auto) 2.4 % (0.0-3.0) Basophils (%) (Auto) 1.1 % (0.0-2.0) Sodium Level 135 MMOL/L (136-145) L Potassium Level 3.7 MMOL/L (3.5-5.1) Chloride Level 101 MMOL/L (98-107) Carbon Dioxide Level 28 MMOL/L (21-32) Anion Gap 6 mmol/L (5-15) Blood Urea Nitrogen 17 mg/dL (7-18) Creatinine 1.0 MG/DL (0.55-1.30) Estimat Glomerular Filtration Rate > 60 mL/min (>60) Glucose Level 266 MG/DL (74-106) H Calcium Level 9.1 MG/DL (8.5-10.1) Lashanda Pham MD Jan 08, 2019 15:14
--- NOTE | 2019-01-08 15:20 | NUR ---
P.T Note: late entry 0845 P.T evaluation completed. Based on P.T evaluation, pt is currently at baseline independent with functional mobilities and gait/locomotion therefore skilled P.T service is not warranted at this time. PA P.T service. Thank you for this referral.
--- NOTE | 2019-01-08 16:00 | NUR ---
NURSE NOTES: Glucose 191, coverage provided, patient awake and eating dinner at this time. No seizure activity since admission to ICU.
--- NOTE | 2019-01-08 16:33 | Diagnostic Imaging Report ---
EXAM: CT Head Without Intravenous Contrast CLINICAL HISTORY: Seizure TECHNIQUE: Axial computed tomography images of the head/brain without intravenous contrast. CTDI is 70.53 mGy and DLP is 1425 mGy-cm. One or more of the following dose reduction techniques were used: automated exposure control, adjustment of the mA and/or kV according to patient size, use of iterative reconstruction technique. COMPARISON: Noncontrast head CT July 29, 2018 FINDINGS: Brain: The cerebella tonsils remain low-lying but no crowding of the foramen magnum is apparent. No evidence of an acute infarct. No hemorrhage. No significant white matter disease. Ventricles: Unremarkable. No ventriculomegaly. Bones/joints: Calvarium demonstrates stable surgical changes from a suboccipital craniectomy. No acute fracture. Soft tissues: Unremarkable. Sinuses: Unremarkable as visualized. No acute sinusitis. Mastoid air cells: Unremarkable as visualized. No mastoid effusion. Orbits: Orbits are intact. IMPRESSION: Stable postoperative changes from suboccipital craniectomy. No acute intracranial hemorrhage, infarct or mass effect.
--- NOTE | 2019-01-08 18:00 | NUR ---
NURSE NOTES: Patient eating and resting comfortably. No seizure activity scene yet since ICU admission. Vitals remains stable.
--- NOTE | 2019-01-08 18:15 | Progress Note ---
DATE: 01/08/2019 SUBJECTIVE: This is a 38-year-old male with acute coronary syndrome. Still very irritable, confused, disorganized, and mood labile worsened by stress of his medical illness. MENTAL STATUS EXAMINATION: This is a 38-year-old male. Appearance is disheveled. Attitude, irritable and agitated. Affect, guarded and restricted. Intellect poor. Mood, depressed and anxious. Motor activity, psychomotor agitation. Attention span is poor. Orientation x2. Speech is pressured. Thought process, disorganized and illogical. Insight and judgment is poor. DIAGNOSIS: Schizoaffective, bipolar type. PLAN: Treat this patient with Seroquel 200 mg p.o. nightly and treat this patient with Depakote 500 mg q.12 hours and Lexapro 10 mg daily. Provided him with 20 minutes of cognitive behavioral therapy to help him identify his automatic negative thoughts and help him convert those negative thoughts to more positive thoughts to reduce depression, anxiety, and suicidality. Chart was reviewed. Discussed with staff. Seen and assessed at bedside. Twenty minutes of cognitive behavioral therapy provided. Charmaine Victor M.D. DR: Michelle JOB#: [id number] CC:
--- NOTE | 2019-01-08 19:10 | NUR ---
NURSE NOTES: Report received from JAKE Ruth. Pt brought in earlier today as rapid response for seizure activity. Pt is A/Ox4 with no seizure activity experienced during stay in ICU. director of restaurant operations shows SR. Pt currently on 2L NC, O2 saturation at 95%. Tolerating well and showing no signs of cardiac or respiratory distress. Pt currently on a CCHO medicum diet. Uses urinal for excretion. Accuchecks ACHS. No skin issues noted. Pt has a LFA20g, patent and saline locked. Pt currently receiving EEG testing. Bed alarms placed, seizure precautions are set. Bed in lowest position, and call light within reach. Will continue to monitor and with patients plan of care.
[2019-01-08] MEDS: Depakote 500mg tab ORAL SCH (20:34)
[2019-01-08] MEDS: Levemir Flexpen SUBQ SCH (20:51)
[2019-01-08] MEDS ORDERED: QUEtiapine 200mg tab ORAL SCH ×2 (21:00)
[2019-01-08] MEDS: LORazepam Inj 2mg/ml 1ml IV PRN (21:46)
--- NOTE | 2019-01-08 22:00 | NUR ---
NURSE NOTES: Pt experienced seizure activity @ 2141. Aura experienced before hand, pt notified nursing staff. 2mg ativan administered, pt placed on left side, and monitored. Teeth clenching noticed and body rocking back and fourth. Seizure lasted approximately 6 minutes on and off. Pt now resting comfortably. Shows no signs of distress. Will continue to monitor. Seroquel held due to seizure activity and sedation.
[2019-01-09] VITALS (21 sets, daily range): BP systolic 102–132; BP diastolic 52–92
--- NOTE | 2019-01-09 | NUR ---
NURSE NOTES: Pt sleeping. VSS. Showing no signs of acute distress. Will continue to monitor.
[2019-01-09] MEDS: LORazepam Inj 2mg/ml 1ml IV PRN ×2 (02:14→05:36)
--- NOTE | 2019-01-09 02:19 | NUR ---
NURSE NOTES: Pt experienced seizure beginning at 0210. Seizure lasted 7 minutes. Ativan given, pt layed on side, two nurses at bedside monitoring. Pt stable, showing no sign of distress. Will continue to monitor.
--- NOTE | 2019-01-09 02:31 | NUR ---
NURSE NOTES: After seizure activity. Pt responsive to name, opens eyes spontaneously. HR maintained at 70's throughout seizure activity, BP WNL.
--- NOTE | 2019-01-09 02:45 | Consultation ---
DATE OF CONSULTATION: 01/08/2019 PSYCHOTHERAPY CONSULTATION PROGRESS NOTE CONSULTING PHYSICIAN: Juan Chinchilla PsyD. TREATING ATTENDING PHYSICIAN: Aniceto Sepulveda D.O. HISTORY OF PRESENT ILLNESS: This patient is a male patient. He has racing thoughts. He has a history of schizoaffective disorder, bipolar type. The patient has been admitted to the hospital for acute coronary syndrome and chest pain. The patient has been experiencing anxiety and irritability as well and restlessness, and for these reasons, he was referred for psychotherapeutic services. When assessed, the patient states that he is feeling restless and irritable. He states that he has been having chest pain. He states that no one knows why he is having this chest pain. He states that he is feeling anxious, restless, and irritable. He denies suicidal or homicidal thoughts of ideation. He denies any auditory or visual hallucinations. At this time, he states that he continues to feel very anxious because of his current situation. He states he does not know where he is going to live either and for these reasons, it caused him more anxiety. He is cooperative with this clinician and communicates well. This clinician assessed this patient. This patient is cooperative. PAST MEDICAL HISTORY: Includes a history of COPD, CVA, diabetes, and left-sided weakness. ALLERGIES: Haldol. SUBSTANCE ABUSE HISTORY: The patient has history of marijuana use, alcohol use, and smoking cigarettes. PSYCHIATRIC HISTORY: The patient does have a history of bipolar disorder and possible schizoaffective disorder and he has been treated with psychotropic medications in the past. SOCIAL HISTORY: This patient is a 38-year-old male patient. He states that now he lives in [place]; however, he states that he does not have housing anymore. Financially sustained through [facility]. MENTAL STATUS EXAMINATION: The patient is alert and oriented to person, place, time, and situation. Mood is anxious. Affect is congruent. Thought process is organized. Thought content is linear. He has fair attention and concentration. Fair insight, judgment, and impulse control. TODAY, I ASSESSED THIS PATIENT, PROVIDED THE PATIENT WITH: 1. Supportive psychotherapy, which provided for the patient's emotional outlet and means to cope with emotional distress. The patient is able to process his thoughts and feelings of anxiety and emotions in session. 2. Provided the patient with cognitive behavioral therapy, which can help with the range of problems that may involve patterns of thinking or acting there problematic and today addressing the patient's poor impulse control, addressing the patient's poor frustration tolerance and anxiety, providing the patient with psychoeducation on mental health symptoms, and providing the patient with coping skills including positive self-talk, positive thinking strategies, relaxation exercises, and being referred to [facility], and also working on rational and reality-based thoughts for this patient as he is very negative and catastrophic in his thought process. Continue with behavioral management for this patient. This clinician has reviewed the patient's chart and discussed treatment with treatment team and to maintain medication compliance with the progression of reality-based thoughts, discussing for positive coping skills, and stabilizing the thoughts and behavior. Psychotherapy service is 50 minutes. Juan Chinchilla PsyD. DR: Cas[place] JOB#: [id number] CC:
[2019-01-09] MEDS: Morphine Sulfate 2mg/ml Inj(IV/IM USE ONLY) IVP PRN ×5 (05:20→22:46)
[2019-01-09] MEDS: NovoLOG Insulin Flexpen SUBQ SCH ×7 (05:39→20:41)
--- NOTE | 2019-01-09 05:45 | NUR ---
NURSE NOTES: After pt's administration of morphine pt experienced seizure approximately 10 minutes after. Pt called nurse, was seen laying on his side and rocking back and fourth. After activity, pt was able to swiftly talk appropriately, answer questions, and follow commands. VSS. Showing no signs of distress. Will continue to monitor.
[2019-01-09 06:16] LABS: BASOPHILS % (AUTO) 0.5 % (0.0-2.0); EOSINOPHILS % (AUTO) 2.3 % (0.0-3.0); HEMATOCRIT 43.9 % (42.0-52.0); HEMOGLOBIN 15.3 G/DL (14.2-18.0); LYMPHOCYTES % (AUTO) 33.7 % (20.0-45.0); MEAN CORPUSCULAR VOLUME 87 FL (80-99); MONOCYTES % (AUTO) 7.5 % (1.0-10.0); NEUTROPHILS % (AUTO) 55.9 % (45.0-75.0); PLATELET COUNT 172 K/UL (150-450); RED BLOOD COUNT 5.07 M/UL (4.70-6.10); RED CELL DISTRIBUTION WIDTH 12.5 % (11.6-14.8); WHITE BLOOD COUNT 8.7 K/UL (4.8-10.8)
[2019-01-09 06:35] LABS: ALANINE AMINOTRANSFERASE 47 U/L (12-78); ALBUMIN 3.3 G/DL (3.4-5.0); ALBUMIN/GLOBULIN RATIO 1.1 (1.0-2.7); ALKALINE PHOSPHATASE 65 U/L (46-116); ANION GAP 6 mmol/L (5-15); ASPARTATE AMINO TRANSFERASE 17 U/L (15-37); BILIRUBIN,TOTAL 0.5 MG/DL (0.2-1.0); BLOOD UREA NITROGEN 15 mg/dL (7-18); CARBON DIOXIDE 30 MMOL/L (21-32); CHLORIDE 103 MMOL/L (98-107); CREATININE 0.9 MG/DL (0.55-1.30); POTASSIUM 3.9 MMOL/L (3.5-5.1); SODIUM 139 MMOL/L (136-145)
--- NOTE | 2019-01-09 07:20 | NUR ---
NURSE NOTES: Report received from JAKE Panchal. Patient was initially sleeping however woke up when entered the room. Patient is awake, alert and oriented x 4. Patient follows commands, speaks with clear verbal responses and does not appear in any acute or respiratory response. Patient is being monitored on the manager cardiac. VS are 125/82, HR 92, RR 23 SPO2 96%. Patient is SR. Patient is on 2L NC and tolerating. Patient has hypoactive bowel sounds. Patient is independent with use of urinal for voiding urine. Patient has skin that is intact. Patient has a LFA 20g that is TKO. Patient is very irritable and resistive to care. Safety measures in place with bed locked in the lowest position, sz precautions with padded side rails, bed alarms are set and call light within reach. Will continue to monitor and with patients plan of care.
--- NOTE | 2019-01-09 08:44 | General Progress Note ---
Assessment/Plan Problem List: (1) ACS (acute coronary syndrome) ICD Codes: I24.9 - Acute ischemic heart disease, unspecified SNOMED: 005632874 (2) Diabetes mellitus ICD Codes: E11.9 - Diabetes mellitus SNOMED: 75584152 (3) COPD (chronic obstructive pulmonary disease) ICD Codes: J44.9 - Chronic obstructive pulmonary disease, unspecified SNOMED: 97595428 (4) CVA (cerebral vascular accident) ICD Codes: I63.9 - Cerebral infarction, unspecified SNOMED: 353064953 (5) Uncontrolled seizures ICD Codes: R56.9 - Unspecified convulsions SNOMED: 00434698 Status: unchanged Assessment/Plan seizure control pt diet pain control cardio f/u bp bs control cbc bmp am Subjective Constitutional: Reports: weakness Allergies: Coded Allergies: HALOPERIDOL (Verified Allergy, Unknown, 11/30/18) All Systems: reviewed and negative except above Subjective had seizure yesterday sl sob sl chest painin icu Objective Last 24 Hour Vital Signs Date Time Temp Pulse Resp B/P (MAP) Pulse Ox O2 Delivery O2 Flow Rate FiO2 01/09/19 06:00 88 23 102/56 (71) 98 01/09/19 05:50 98.9 01/09/19 05:00 98.1 87 21 121/65 (83) 93 01/09/19 04:00 Nasal Cannula 2.0 01/09/19 04:00 83 01/09/19 04:00 80 18 106/74 (85) 95 01/09/19 03:00 91 20 121/92 (102) 95 01/09/19 02:00 85 24 104/72 (83) 94 01/09/19 01:00 79 19 118/79 (92) 96 01/09/19 00:00 Nasal Cannula 2.0 01/09/19 00:00 84 01/09/19 00:00 98.9 83 20 115/73 (87) 96 01/08/19 23:00 82 19 115/67 (83) 95 01/08/19 22:00 84 21 116/75 (89) 93 01/08/19 21:00 90 22 101/57 (72) 94 01/08/19 20:00 99 01/08/19 20:00 Nasal Cannula 2.0 01/08/19 20:00 98.5 100 20 120/76 (91) 94 3/16/19 19:34 88 20 Room Air 21 01/08/19 19:00 86 22 105/58 (74) 93 01/08/19 18:00 105 20 103/53 (70) 93 01/08/19 17:00 115 21 106/65 (79) 93 01/08/19 16:00 99 20 118/63 (81) 95 01/08/19 15:00 100 20 118/64 (82) 96 01/08/19 14:05 98.4 111 19 128/82 (97) 100 01/08/19 14:00 98.6 125 30 138/69 (92) 96 01/08/19 12:00 98.1 89 19 116/63 (80) 89 01/08/19 11:54 97.9 01/08/19 09:00 Nasal Cannula 2.0 Intake and Output 01/08/19 01/09/19 19:00 07:00 Intake Total 160 ml Output Total 700 ml 800 ml Balance -540 ml -800 ml Intake Oral 100 ml IV Total 60 ml Output Urine Total 700 ml 800 ml # Voids 1 Laboratory Tests 01/09/19 04:35: White Blood Count 8.7, Red Blood Count 5.07, Hemoglobin 15.3, Hematocrit 43.9, Mean Corpuscular Volume 87, Mean Corpuscular Hemoglobin 30.2, Mean Corpuscular Hemoglobin Concent 34.9, Red Cell Distribution Width 12.5, Platelet Count 172, Mean Platelet Volume 8.6, Neutrophils (%) (Auto) 55.9, Lymphocytes (%) (Auto) 33.7, Monocytes (%) (Auto) 7.5, Eosinophils (%) (Auto) 2.3, Basophils (%) (Auto ) 0.5, Sodium Level 139, Potassium Level 3.9, Chloride Level 103, Carbon Dioxide Level 30, Anion Gap 6, Blood Urea Nitrogen 15, Creatinine 0.9, Estimat Glomerular Filtration Rate > 60, Glucose Level 140#H, Calcium Level 9.0, Total Bilirubin 0.5, Aspartate Amino Transf (AST/SGOT) 17, Alanine Aminotransferase ( ALT/SGPT) 47, Alkaline Phosphatase 65, Pro-B-Type Natriuretic Peptide 24, Total Protein 6.4, Albumin 3.3L, Globulin 3.1, Albumin/Globulin Ratio 1.1 Height (Feet): 5 Height (Inches): 11.00 Weight (Pounds): 261 General Appearance: lethargic EENT: normal ENT inspection Neck: normal alignment Cardiovascular: normal peripheral pulses, normal rate, regular rhythm Respiratory/Chest: chest wall non-tender, lungs clear, normal breath sounds Abdomen: normal bowel sounds, non tender, soft Extremities: normal inspection Edema: no edema noted Arm (L), no edema noted Arm (R), no edema noted Leg (L), no edema noted Leg (R), no edema noted Pedal (L), no edema noted Pedal (R), no edema noted Generalized Neurologic: responsive, motor weakness Skin: normal pigmentation, warm/dry Aniceto Sepulveda DO Jan 09, 2019 08:44
[2019-01-09] MEDS: Heparin 5000 units/ml inj SUBQ SCH ×2 (09:00→20:35)
[2019-01-09] MEDS ORDERED: Aspirin Baby 81mg ORAL SCH (09:00)
[2019-01-09] MEDS: Depakote 500mg tab ORAL SCH ×2 (09:20→20:35)
[2019-01-09] MEDS: Levemir Flexpen SUBQ SCH ×2 (09:30→20:39)
--- NOTE | 2019-01-09 09:58 | Diagnostic Imaging Report ---
EXAM: XR Chest, 1 View CLINICAL HISTORY: DYSPNEA TECHNIQUE: Frontal view of the chest. COMPARISON: Chest x-ray dated 01/06/19 FINDINGS: Lungs: Unremarkable. The lungs appear clear. No focal consolidation. Pleural space: Unremarkable. The costophrenic angles are sharp. No visible pneumothorax. Heart: Unremarkable. No cardiomegaly. Mediastinum: Unremarkable. Bones/joints: Unremarkable. Tubes, lines and devices: Telemetry leads overlie the thorax. IMPRESSION: No acute findings.
--- NOTE | 2019-01-09 10:15 | NUR ---
NURSE NOTES: Patient used the call light to alert RN that patient was seeing an aura. Patient then with eyes closed began to roll head and body back and forth with no muscle tension whatsoever. Patient described aura as "flashing lights." RN asked patient if sz had begun and patient responded with a definitive yes. RN requested patient to squeeze hands and was able to squeeze Right hand tightly and less on the left. RN asked if sz was more involved on the left and patient stated "yes it is on the left more." The movement continued while RN timed for approximately 5.5 minutes. While RN stood outside of door, patient repositioned himself during episode. RN arrived with antianxiety medication and patient stated responded that he "I feel better." The dosage with the Ativan for anxiety vs seizure is considerably less. Patient responded quickly. The episode stopped immediately. Patient did not have any type of post ictal episode post sz like activity. Patient spoke without with issue, was not fatigued and did request his phone. Will continue to monitor and report findings to his MD and neuro. Addendum: 01/09/19 at 1120 by RIVAS WHITE RN during episode, there was no changes to VS throughout the entire episode.
--- NOTE | 2019-01-09 11:03 | General Progress Note ---
Assessment/Plan Assessment/Plan (1) Chiari malformation type II (2) Degenerative disc disease, cervical (3) Lumbar degenerative disc disease (4) Arthritis, lumbar spine (5) Peripheral neuropathy (6) Hydrocephalus (7) Diabetes mellitus Pt will be continued on the Morphine 1mg IV Q4H PRN pain and started on [place] 10/325mg PO 1 tab Q6H PRN severe pain. Pt was d/w Dr. Napier and he concurred. Subjective Date patient seen: Jan 09, 2019 Time patient seen: 10:30 - am Allergies: Coded Allergies: HALOPERIDOL (Verified Allergy, Unknown, 11/30/18) Subjective Constitutional: Reports: weakness, Denies: chills, diaphoresis, fever, malaise , no symptoms, other HEENT: Denies: blurred vision, double vision, ear discharge, ear pain, eye pain , mouth pain, mouth swelling, no symptoms, nose congestion, nose pain, other, tearing, throat pain, throat swelling Cardiovascular: Denies: chest pain, edema, irregular heart rate, lightheadedness, no symptoms, other, palpitations, syncope Respiratory: Denies: SOB at rest, SOB with excertion, cough, no symptoms, orthopnea, other, shortness of breath, sputum, stridor, wheezing Gastrointestinal/Abdominal: Denies: abdomen distended, abdominal pain, black stools, blood in stool, constipated, diarrhea, difficulty swallowing, nausea, no symptoms, other, poor appetite, poor fluid intake, rectal bleeding, tarry stools, vomiting Genitourinary: Denies: burning, discharge, flank pain, frequency, hematuria, incontinence, no symptoms, other, pain, urgency Neurologic/Psychiatric: Reports: headache, numbness, tingling, weakness, Denies : anxiety, depressed, emotional problems, no symptoms, other, paresthesia, pre- existing deficit, seizure, tremors Endocrine: Denies: excessive sweating, flushing, increased hunger, increased thirst, increased urine, intolerance to cold, intolerance to heat, no symptoms, other, unexplained weight gain, unexplained weight loss Hematologic/Lymphatic: Denies: anemia, easy bleeding, easy bruising, no symptoms, other Subjective Patient is a known patient and has been admitted under the care of Dr. Sepulveda. C/ o pain, Started on Morphine 1mg IV Q4H PRN severe pain and we were consulted so patient has adequate pain control while here in the hospital. Objective Last 24 Hour Vital Signs Date Time Temp Pulse Resp B/P (MAP) Pulse Ox O2 Delivery O2 Flow Rate FiO2 01/09/19 08:00 Venturi Mask 01/09/19 06:00 88 23 102/56 (71) 98 01/09/19 05:50 98.9 01/09/19 05:00 98.1 87 21 121/65 (83) 93 01/09/19 04:00 Nasal Cannula 2.0 01/09/19 04:00 83 01/09/19 04:00 80 18 106/74 (85) 95 01/09/19 03:00 91 20 121/92 (102) 95 01/09/19 02:00 85 24 104/72 (83) 94 01/09/19 01:00 79 19 118/79 (92) 96 01/09/19 00:00 Nasal Cannula 2.0 01/09/19 00:00 84 01/09/19 00:00 98.9 83 20 115/73 (87) 96 01/08/19 23:00 82 19 115/67 (83) 95 01/08/19 22:00 84 21 116/75 (89) 93 01/08/19 21:00 90 22 101/57 (72) 94 01/08/19 20:00 99 01/08/19 20:00 Nasal Cannula 2.0 01/08/19 20:00 98.5 100 20 120/76 (91) 94 01/08/19 19:34 88 20 Room Air 21 01/08/19 19:00 86 22 105/58 (74) 93 01/08/19 18:00 105 20 103/53 (70) 93 01/08/19 17:00 115 21 106/65 (79) 93 01/08/19 16:00 99 20 118/63 (81) 95 01/08/19 15:00 100 20 118/64 (82) 96 01/08/19 14:05 98.4 111 19 128/82 (97) 100 01/08/19 14:00 98.6 125 30 138/69 (92) 96 01/08/19 12:00 98.1 89 19 116/63 (80) 89 01/08/19 11:54 97.9 Intake and Output 01/08/19 01/09/19 19:00 07:00 Intake Total 160 ml Output Total 700 ml 800 ml Balance -540 ml -800 ml Intake Oral 100 ml IV Total 60 ml Output Urine Total 700 ml 800 ml # Voids 1 Laboratory Tests 01/09/19 04:35: White Blood Count 8.7, Red Blood Count 5.07, Hemoglobin 15.3, Hematocrit 43.9, Mean Corpuscular Volume 87, Mean Corpuscular Hemoglobin 30.2, Mean Corpuscular Hemoglobin Concent 34.9, Red Cell Distribution Width 12.5, Platelet Count 172, Mean Platelet Volume 8.6, Neutrophils (%) (Auto) 55.9, Lymphocytes (%) (Auto) 33.7, Monocytes (%) (Auto) 7.5, Eosinophils (%) (Auto) 2.3, Basophils (%) (Auto ) 0.5, Sodium Level 139, Potassium Level 3.9, Chloride Level 103, Carbon Dioxide Level 30, Anion Gap 6, Blood Urea Nitrogen 15, Creatinine 0.9, Estimat Glomerular Filtration Rate > 60, Glucose Level 140#H, Calcium Level 9.0, Total Bilirubin 0.5, Aspartate Amino Transf (AST/SGOT) 17, Alanine Aminotransferase ( ALT/SGPT) 47, Alkaline Phosphatase 65, Pro-B-Type Natriuretic Peptide 24, Total Protein 6.4, Albumin 3.3L, Globulin 3.1, Albumin/Globulin Ratio 1.1 Height (Feet): 5 Height (Inches): 11.00 Weight (Pounds): 261 Objective General Appearance: no apparent distress, alert EENT: PERRL/EOMI, normal ENT inspection Neck: normal alignment, supple Cardiovascular: normal rate, regular rhythm Respiratory/Chest: lungs clear, normal breath sounds Abdomen: non tender, soft Extremities: non-tender Edema: trace edema Neurologic: alert, responsive Skin: warm/dry Joao Munoz Jan 09, 2019 11:03
[2019-01-09] MEDS ORDERED: HYDROcodone/Acetamin 10/325 tab ORAL PRN ×2 (11:15→19:42)
--- NOTE | 2019-01-09 12:07 | NUR ---
NURSE NOTES: Patient becomes very irritable when pain meds are due. If pain meds are not on time, patient continuously calls on the call light until given. Patient calms when meds are given. Patient is AAO x 4. Patient makes his needs known, speaks with clear verbal responses and does not appear in any acute response. Patient is being monitored on the manager monitoring. VSS. Patient is on 2L NC and tolerating. Patient is independently uses urinal for voiding. Patient has a LFA 20g that is TKO. Safety measures in place with bed locked in the lowest position, sz precautions with padded side rails, bed alarms are set and call light within reach. Will continue to monitor and with patients plan of care.
--- NOTE | 2019-01-09 12:15 | General Progress Note ---
Assessment/Plan Problem List: (1) COPD (chronic obstructive pulmonary disease) ICD Codes: J44.9 - Chronic obstructive pulmonary disease, unspecified SNOMED: 26569368 (2) Diabetes mellitus ICD Codes: E11.9 - Diabetes mellitus SNOMED: 76814577 Assessment/Plan continue Levemir 18 units bid continuu Novolog 7 units ac tid continue NISS ac / hs Subjective ROS Limited/Unobtainable: Yes Allergies: Coded Allergies: HALOPERIDOL (Verified Allergy, Unknown, 11/30/18) Subjective transferred to ICU due to seizure awake glucose values improved Item Value Date Time Bedside Blood Glucose 128 mg/dl H 01/09/19 0930 Bedside Blood Glucose 139 mg/dl H 01/09/19 0630 Bedside Blood Glucose 225 mg/dl H 01/08/19 2100 Bedside Blood Glucose 191 mg/dl H 01/08/19 1630 Bedside Blood Glucose 180 mg/dl H 01/08/19 1204 Objective Last 24 Hour Vital Signs Date Time Temp Pulse Resp B/P (MAP) Pulse Ox O2 Delivery O2 Flow Rate FiO2 01/09/19 08:00 Venturi Mask 01/09/19 06:00 88 23 102/56 (71) 98 01/09/19 05:50 98.9 01/09/19 05:00 98.1 87 21 121/65 (83) 93 01/09/19 04:00 Nasal Cannula 2.0 01/09/19 04:00 83 01/09/19 04:00 80 18 106/74 (85) 95 01/09/19 03:00 91 20 121/92 (102) 95 01/09/19 02:00 85 24 104/72 (83) 94 01/09/19 01:00 79 19 118/79 (92) 96 01/09/19 00:00 Nasal Cannula 2.0 01/09/19 00:00 84 01/09/19 00:00 98.9 83 20 115/73 (87) 96 01/08/19 23:00 82 19 115/67 (83) 95 01/08/19 22:00 84 21 116/75 (89) 93 01/08/19 21:00 90 22 101/57 (72) 94 01/08/19 20:00 99 01/08/19 20:00 Nasal Cannula 2.0 01/08/19 20:00 98.5 100 20 120/76 (91) 94 3/16/19 19:34 88 20 Room Air 21 01/08/19 19:00 86 22 105/58 (74) 93 01/08/19 18:00 105 20 103/53 (70) 93 01/08/19 17:00 115 21 106/65 (79) 93 01/08/19 16:00 99 20 118/63 (81) 95 01/08/19 15:00 100 20 118/64 (82) 96 01/08/19 14:05 98.4 111 19 128/82 (97) 100 01/08/19 14:00 98.6 125 30 138/69 (92) 96 Intake and Output 01/08/19 01/09/19 19:00 07:00 Intake Total 160 ml Output Total 700 ml 800 ml Balance -540 ml -800 ml Intake Oral 100 ml IV Total 60 ml Output Urine Total 700 ml 800 ml # Voids 1 Laboratory Tests 01/09/19 04:35: White Blood Count 8.7, Red Blood Count 5.07, Hemoglobin 15.3, Hematocrit 43.9, Mean Corpuscular Volume 87, Mean Corpuscular Hemoglobin 30.2, Mean Corpuscular Hemoglobin Concent 34.9, Red Cell Distribution Width 12.5, Platelet Count 172, Mean Platelet Volume 8.6, Neutrophils (%) (Auto) 55.9, Lymphocytes (%) (Auto) 33.7, Monocytes (%) (Auto) 7.5, Eosinophils (%) (Auto) 2.3, Basophils (%) (Auto ) 0.5, Sodium Level 139, Potassium Level 3.9, Chloride Level 103, Carbon Dioxide Level 30, Anion Gap 6, Blood Urea Nitrogen 15, Creatinine 0.9, Estimat Glomerular Filtration Rate > 60, Glucose Level 140#H, Calcium Level 9.0, Total Bilirubin 0.5, Aspartate Amino Transf (AST/SGOT) 17, Alanine Aminotransferase ( ALT/SGPT) 47, Alkaline Phosphatase 65, Pro-B-Type Natriuretic Peptide 24, Total Protein 6.4, Albumin 3.3L, Globulin 3.1, Albumin/Globulin Ratio 1.1 Height (Feet): 5 Height (Inches): 11.00 Weight (Pounds): 261 General Appearance: no apparent distress Neck: normal alignment Cardiovascular: normal rate Respiratory/Chest: lungs clear Abdomen: normal bowel sounds Edema: 1+ Arm (L), 1+ Arm (R), 1+ Leg (L), 1+ Leg (R), 1+ Pedal (L), 1+ Pedal ( R), 1+ Generalized Objective Current Medications Medications (Trade) Dose Ordered Sig/Sofia Route PRN Reason Start Time Stop Time Status Last Admin Dose Admin Acetaminophen (Tylenol) 650 mg Q4H PRN ORAL fever 01/08/19 14:23 02/05/19 14:22 Acetaminophen/ Hydrocodone Bitart ([place] 10/325) 1 tab Q6H PRN ORAL moderate pain 01/09/19 11:15 01/16/19 11:14 Al Hydroxide/Mg Hydroxide (Mylanta II) 30 ml Q6H PRN ORAL dyspepsia 01/08/19 14:23 02/05/19 14:22 Albuterol/ Ipratropium (Albuterol/ Ipratropium) 3 ml Q4H PRN HHN Shortness of Breath 01/08/19 14:24 01/11/19 14:23 Alprazolam (Xanax) 0.5 mg Q6H PRN ORAL For Anxiety 01/08/19 14:23 01/13/19 14:22 Aspirin (ASA) 81 mg DAILY ORAL 01/09/19 09:00 02/06/19 08:59 01/09/19 09:20 Clonidine HCl (Catapres Tab) 0.1 mg Q4H PRN ORAL For High Blood Pressure 01/08/19 14:23 02/05/19 14:22 Dextrose (Dextrose 50%) 25 ml Q30M PRN IV Hypoglycemia 01/08/19 14:30 02/05/19 17:59 Dextrose (Dextrose 50%) 50 ml Q30M PRN IV Hypoglycemia 01/08/19 14:30 02/05/19 17:59 Divalproex Sodium (Depakote) 500 mg Q12HR ORAL 01/08/19 21:00 02/05/19 20:59 01/09/19 09:20 Escitalopram Oxalate (Lexapro) 10 mg DAILY ORAL 01/09/19 09:00 02/06/19 08:59 01/09/19 09:20 Heparin Sodium (Porcine) (Heparin 5000 units/ml) 5,000 units EVERY 12 HOURS SUBQ 01/08/19 21:00 02/05/19 20:59 Insulin Aspart (NovoLOG) BEFORE MEALS AND HS SUBQ 01/08/19 16:30 02/05/19 20:59 01/09/19 05:40 Insulin Aspart (NovoLOG) 7 units NOVOTIAC SUBQ 01/08/19 16:50 02/06/19 11:49 01/09/19 05:39 Insulin Detemir (Levemir) 18 units EVERY 12 HOURS SUBQ 01/08/19 21:00 02/05/19 22:29 01/09/19 09:30 Lorazepam (Ativan 2mg/ml 1ml) 0.5 mg Q4H PRN IV For Anxiety 01/08/19 14:24 01/13/19 14:23 01/09/19 10:07 Lorazepam (Ativan 2mg/ml 1ml) 2 mg Q2H PRN IV SEIZURE 01/08/19 14:25 01/15/19 14:24 01/09/19 05:36 Morphine Sulfate (Morphine Sulfate) 1 mg Q4H PRN IVP severe pain 01/09/19 14:25 01/13/19 14:24 Ondansetron HCl (Zofran) 4 mg Q6H PRN IVP Nausea & Vomiting 01/08/19 14:25 02/05/19 14:24 Polyethylene Glycol (Miralax) 17 gm HSPRN PRN ORAL Constipation 01/08/19 14:25 02/07/19 14:24 Quetiapine Fumarate (SEROquel) 200 mg BEDTIME ORAL 01/08/19 21:00 02/05/19 20:59 Zolpidem Tartrate (Ambien) 5 mg HSPRN PRN ORAL Insomnia 01/08/19 14:25 01/15/19 14:24 Tavo Malhotra MD Jan 09, 2019 12:15
--- NOTE | 2019-01-09 13:33 | Pulmonolgy Critical Care Note ---
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 Discussed with: nurses Critical Care - Objective Last 24 Hour Vital Signs Date Time Temp Pulse Resp B/P (MAP) Pulse Ox O2 Delivery O2 Flow Rate FiO2 01/09/19 13:00 100 21 120/76 (91) 96 01/09/19 12:00 98.2 99 21 126/78 (94) 97 01/09/19 11:00 100 22 124/52 (76) 97 01/09/19 10:00 101 21 113/76 (88) 95 01/09/19 09:00 108 20 119/84 (96) 95 01/09/19 08:00 98.1 103 21 123/76 (92) 95 01/09/19 08:00 Venturi Mask 01/09/19 07:00 92 23 125/82 (96) 96 01/09/19 06:00 88 23 102/56 (71) 98 01/09/19 05:50 98.9 01/09/19 05:00 98.1 87 21 121/65 (83) 93 01/09/19 04:00 Nasal Cannula 2.0 01/09/19 04:00 83 01/09/19 04:00 80 18 106/74 (85) 95 01/09/19 03:00 91 20 121/92 (102) 95 01/09/19 02:00 85 24 104/72 (83) 94 01/09/19 01:00 79 19 118/79 (92) 96 01/09/19 00:00 Nasal Cannula 2.0 01/09/19 00:00 84 01/09/19 00:00 98.9 83 20 115/73 (87) 96 01/08/19 23:00 82 19 115/67 (83) 95 01/08/19 22:00 84 21 116/75 (89) 93 01/08/19 21:00 90 22 101/57 (72) 94 01/08/19 20:00 99 01/08/19 20:00 Nasal Cannula 2.0 01/08/19 20:00 98.5 100 20 120/76 (91) 94 01/08/19 19:34 88 20 Room Air 21 01/08/19 19:00 86 22 105/58 (74) 93 01/08/19 18:00 105 20 103/53 (70) 93 01/08/19 17:00 115 21 106/65 (79) 93 01/08/19 16:00 99 20 118/63 (81) 95 01/08/19 15:00 100 20 118/64 (82) 96 01/08/19 14:05 98.4 111 19 128/82 (97) 100 01/08/19 14:00 98.6 125 30 138/69 (92) 96 Status: somnolent Condition: critical HEENT: atraumatic Neck: full ROM Lungs: chest wall tender Heart: HR/BP unstable Abdomen: soft, active bowel sounds, feeding tube Extremities: edema Accucheck: 164 Critical Care - Subjective ROS Limited/Unobtainable: No EKG Rhythm: V-Paced FI02: 21 Sputum Amount: None I&O: Intake and Output 01/08/19 01/09/19 19:00 07:00 Intake Total 160 ml Output Total 700 ml 800 ml Balance -540 ml -800 ml Intake Oral 100 ml IV Total 60 ml Output Urine Total 700 ml 800 ml # Voids 1 Labs: Laboratory Tests Test 01/09/19 04:35 White Blood Count 8.7 K/UL (4.8-10.8) Red Blood Count 5.07 M/UL (4.70-6.10) Hemoglobin 15.3 G/DL (14.2-18.0) Hematocrit 43.9 % (42.0-52.0) Mean Corpuscular Volume 87 FL (80-99) Mean Corpuscular Hemoglobin 30.2 PG (27.0-31.0) Mean Corpuscular Hemoglobin Concent 34.9 G/DL (32.0-36.0) Red Cell Distribution Width 12.5 % (11.6-14.8) Platelet Count 172 K/UL (150-450) Mean Platelet Volume 8.6 FL (6.5-10.1) Neutrophils (%) (Auto) 55.9 % (45.0-75.0) Lymphocytes (%) (Auto) 33.7 % (20.0-45.0) Monocytes (%) (Auto) 7.5 % (1.0-10.0) Eosinophils (%) (Auto) 2.3 % (0.0-3.0) Basophils (%) (Auto) 0.5 % (0.0-2.0) Sodium Level 139 MMOL/L (136-145) Potassium Level 3.9 MMOL/L (3.5-5.1) Chloride Level 103 MMOL/L (98-107) Carbon Dioxide Level 30 MMOL/L (21-32) Anion Gap 6 mmol/L (5-15) Blood Urea Nitrogen 15 mg/dL (7-18) Creatinine 0.9 MG/DL (0.55-1.30) Estimat Glomerular Filtration Rate > 60 mL/min (>60) Glucose Level 140 MG/DL (74-106) #H Calcium Level 9.0 MG/DL (8.5-10.1) Total Bilirubin 0.5 MG/DL (0.2-1.0) Aspartate Amino Transf (AST/SGOT) 17 U/L (15-37) Alanine Aminotransferase (ALT/SGPT) 47 U/L (12-78) Alkaline Phosphatase 65 U/L (46-116) Pro-B-Type Natriuretic Peptide 24 pg/mL (0-125) Total Protein 6.4 G/DL (6.4-8.2) Albumin 3.3 G/DL (3.4-5.0) L Globulin 3.1 g/dL Albumin/Globulin Ratio 1.1 (1.0-2.7) Lashanda Pham MD Jan 09, 2019 13:33
--- NOTE | 2019-01-09 13:45 | NUR ---
NURSE NOTES: Dr Pham assessed patient bedside. Per ok to transfer. Will await Neuro for transfer ok. Primary already gave ok. Waiting for Neuro. Will continue to monitor.
--- NOTE | 2019-01-09 14:45 | NUR ---
NURSE NOTES: Dr Maguire assessed patient bedside. Discussed results of diagnostic tests as well as episodes that were thought to be seizures. Patient is able to speak, follow commands and reposition during episodes. Per MD patient is ok to transfer, these are pseudoszs. Patient can be transferred out of ICU. Will continue to monitor.
--- NOTE | 2019-01-09 16:00 | NUR ---
NURSE NOTES: Patient is resting comfortably. Patient is AAO x 4 and has not had any sz like episodes all afternoon since Neuro MD has seen patient. Patient continues to request pain meds around the clock. Patient does not appear in any acute distress. Patient is being monitored on the monitoring manager. VSS. Patient is on 2L NC and tolerating. Patient uses urinal for voiding independently. Patient has a LFA 20g that is TKO. Safety measures in place with bed locked in the lowest position, sz precautions with padded side rails, bed alarms are set and call light within reach. Will continue to monitor and with patients plan of care.
--- NOTE | 2019-01-09 18:24 | NUR ---
NURSE NOTES: Patient has eaten well all shift, is now being prepped for transfer. Blood sugars now more under control. Will give pain meds prior to transfer.
--- NOTE | 2019-01-09 19:00 | Progress Note ---
DATE: 01/09/2019 SUBJECTIVE: This is a 38-year-old male patient with acute coronary syndrome, continues to have some confusion, disorganized thought process, mood lability, worsened by stress of his medical illness. That is why, his attending has requested daily psychiatric consultation. He continues to have mood lability, agitation, irritability, and confusion. . MENTAL STATUS EXAMINATION: This is a 38-year-old male patient. Appearance is disheveled. Attitude, . Intellect poor. Mood, depressed and anxious. Motor activity, psychomotor agitation. Attention span is poor. Orientation x2. Speech is pressured. Thought process, disorganized and illogical. Insight and judgment is poor DIAGNOSIS: Schizoaffective, bipolar type. PLAN: Treat him with a medication regimen consisting of Depakote 500 mg q.12 h. and also Seroquel 200 mg at bedtime and then also treat this patient is on Lexapro 10 mg daily and also treat this patient with Ativan 0.5 mg IV q.4 h. p.r.n. anxiety and agitation. Provided him with 20 minutes of cognitive behavioral therapy to help him identify his automatic negative thoughts and help him convert those negative thoughts to more positive thoughts to reduce depression, anxiety, and mood lability. Chart was reviewed. Discussed with staff. Seen and assessed at bedside. A 20 minutes of reality-based supportive psychotherapy provided. Charmaine Victor M.D. DR: MARY JOB#: [id number] CC:
[2019-01-09] MEDS ORDERED: NS 275ml ONE (19:14)
[2019-01-09] MEDS ORDERED: NS 500ML ONE (19:14)
[2019-01-09] MEDS ORDERED: Tubing IV Secondary IV ONE (19:14)
[2019-01-09] MEDS ORDERED: Mylanta II UD 30ml ORAL PRN (19:41)
[2019-01-09] MEDS ORDERED: Albuterol/Ipratropium 3ml neb HHN PRN (19:41)
[2019-01-09] MEDS ORDERED: ALPRAZolam 0.5mg tab ORAL PRN (19:41)
[2019-01-09] MEDS ORDERED: LORazepam Inj 2mg/ml 1ml IV PRN (19:42)
--- NOTE | 2019-01-09 19:42 | NUR ---
HAND-OFF: Report given to JAKE Orosco on 4th Floor Med/Surg. Patient with VSS and not in any acute distress. Patient stated that one of his [employer] phones was missing however, all phones x 3 including his field care manager now accounted for with his belongings.
--- NOTE | 2019-01-09 19:42 | NUR ---
NURSE NOTES: Pt received in stable condition from ICU from JAKE Sanford. Pt is sitting upright in bed, bed is locked in lowest position. side rails x2, seizure precautions in place with padded side rails. Will continue to monitor patient.
[2019-01-09] MEDS ORDERED: Miralax 17gm pkt ORAL PRN (19:43)
[2019-01-09] MEDS ORDERED: Zolpidem 5mg tab ORAL PRN (19:43)
[2019-01-09] MEDS: QUEtiapine 200mg tab ORAL SCH (22:44)
--- NOTE | 2019-01-10 00:30 | Progress Note ---
ADDENDUM The patient's EEG was in the normal range activity was 8 to 9 cycles per second. There was no epileptiform abnormality. There was "mild generalized slowing", however, normal EEG does not exclude a seizure disorder. Hansel Maguire MD DR: Mis JOB#: [id number] CC: JERALD
--- NOTE | 2019-01-10 02:00 | Progress Note ---
DATE: 01/09/2019 SUBJECTIVE: This morning, the patient had a "seizure." Apparently, he was talking during the seizure, rolling from one side to the other. During the seizure, rearranged his position, squeezed the nurse's hand to command. He is still on his medication. OBJECTIVE: VITAL SIGNS: Pulse is 100, respirations 20, blood pressure is 120/96, and temperature is 98.3 degrees. MENTAL STATUS EXAMINATION: He states he is in [facility], states it is January, but he is oriented to person. He still answers questions fairly normally, but with dysarthric speech. CRANIAL NERVE EXAMINATION: CRANIAL NERVES III, IV, AND : Intact. Pupils are approximately 5 mm wide and reactive. CRANIAL NERVE V: Facial strength 5/5. CRANIAL NERVE VII: No change. CRANIAL NERVES IX TO XII: Not tested. MUSCLE EXAMINATION: Muscle bulk and tone are normal. Strength is 5/5. Reflexes are 0 in the upper and lower extremities. IMPRESSION: Most part of the patient's seizures are pseudoseizures. Therefore, he really does not belong in the ICU He has pseudo seizures. The patient also has noncompliance with his medication. Therefore, I cannot rule out real seizures. PLAN: 1. Discharge from the ICU. 2. Continue his Depakote 500 mg b.i.d. Hansel Maguire MD DR: Mis JOB#: [id number] CC: JERALD
[2019-01-10 02:04] VITALS: BP 114/73
[2019-01-10 04:00] VITALS: BP 117/65
[2019-01-10] MEDS: NovoLOG Insulin Flexpen SUBQ SCH ×7 (06:21→21:39)
--- NOTE | 2019-01-10 06:23 | General Progress Note ---
Assessment/Plan Problem List: (1) COPD (chronic obstructive pulmonary disease) ICD Codes: J44.9 - Chronic obstructive pulmonary disease, unspecified SNOMED: 29718831 (2) Diabetes mellitus ICD Codes: E11.9 - Diabetes mellitus SNOMED: 18094510 Assessment/Plan continue Levemir 18 units bid continuu Novolog 7 units ac tid continue NISS ac / hs Subjective Allergies: Coded Allergies: HALOPERIDOL (Verified Allergy, Unknown, 11/30/18) All Systems: reviewed and negative except above Subjective transferred bed to [facility] surg glucose values are stable Item Value Date Time Bedside Blood Glucose 169 mg/dl H 01/10/19 0553 Bedside Blood Glucose 164 mg/dl H 01/09/19 2055 Bedside Blood Glucose 169 mg/dl H 01/09/19 1747 Bedside Blood Glucose 164 mg/dl H 01/09/19 1257 Bedside Blood Glucose 128 mg/dl H 01/09/19 0930 Bedside Blood Glucose 139 mg/dl H 01/09/19 0630 Objective Last 24 Hour Vital Signs Date Time Temp Pulse Resp B/P (MAP) Pulse Ox O2 Delivery O2 Flow Rate FiO2 01/10/19 04:00 Venturi Mask 01/10/19 04:00 98.1 81 20 117/65 (82) 95 01/10/19 02:04 97.9 94 18 114/73 (87) 96 01/10/19 00:05 96 20 Room Air 21 01/09/19 23:00 Venturi Mask 01/09/19 22:00 98.5 102 20 127/78 (94) 98 01/09/19 21:00 98.5 102 20 127/78 (94) 98 01/09/19 21:00 Venturi Mask 01/09/19 18:00 105 21 126/81 (96) 99 01/09/19 17:00 100 22 111/64 (80) 99 01/09/19 16:00 98.4 99 17 132/68 (89) 96 01/09/19 16:00 Venturi Mask 01/09/19 15:00 105 21 107/53 (71) 98 01/09/19 14:00 96 21 127/71 (89) 93 01/09/19 13:00 100 21 120/76 (91) 96 01/09/19 12:00 98.2 99 21 126/78 (94) 97 01/09/19 12:00 Venturi Mask 01/09/19 11:00 100 22 124/52 (76) 97 01/09/19 10:00 101 21 113/76 (88) 95 01/09/19 09:00 108 20 119/84 (96) 95 01/09/19 08:00 98.1 103 21 123/76 (92) 95 01/09/19 08:00 Venturi Mask 01/09/19 07:00 92 23 125/82 (96) 96 01/09/19 07:00 71 18 Room Air 21 Intake and Output 01/09/19 01/10/19 18:59 06:59 Intake Total 520 ml Output Total 2100 ml Balance -1580 ml Intake Oral 520 ml Output Urine Total 2100 ml # Voids 2 Height (Feet): 5 Height (Inches): 11.00 Weight (Pounds): 261 General Appearance: no apparent distress Neck: normal alignment Cardiovascular: normal rate Respiratory/Chest: lungs clear Abdomen: normal bowel sounds Pelvis: normal external exam Objective Current Medications Medications (Trade) Dose Ordered Sig/Sofia Route PRN Reason Start Time Stop Time Status Last Admin Dose Admin Acetaminophen (Tylenol) 650 mg Q4H PRN ORAL fever 01/09/19 19:40 02/05/19 19:39 Acetaminophen/ Hydrocodone Bitart ([place] 10/325) 1 tab Q6H PRN ORAL moderate pain 01/09/19 19:42 01/16/19 19:41 Al Hydroxide/Mg Hydroxide (Mylanta II) 30 ml Q6H PRN ORAL dyspepsia 01/09/19 19:41 02/05/19 19:40 Albuterol/ Ipratropium (Albuterol/ Ipratropium) 3 ml Q4H PRN HHN Shortness of Breath 01/09/19 19:41 01/11/19 19:40 Alprazolam (Xanax) 0.5 mg Q6H PRN ORAL For Anxiety 01/09/19 19:41 01/13/19 19:40 Aspirin (ASA) 81 mg DAILY ORAL 01/10/19 09:00 02/06/19 08:59 Clonidine HCl (Catapres Tab) 0.1 mg Q4H PRN ORAL For High Blood Pressure 01/09/19 19:41 02/05/19 19:40 Dextrose (Dextrose 50%) 25 ml Q30M PRN IV Hypoglycemia 01/09/19 20:00 02/05/19 17:59 Dextrose (Dextrose 50%) 50 ml Q30M PRN IV Hypoglycemia 01/09/19 20:00 02/05/19 17:59 Divalproex Sodium (Depakote) 500 mg Q12HR ORAL 01/09/19 21:00 02/05/19 20:59 01/09/19 20:35 Escitalopram Oxalate (Lexapro) 10 mg DAILY ORAL 01/10/19 09:00 02/06/19 08:59 Heparin Sodium (Porcine) (Heparin 5000 units/ml) 5,000 units EVERY 12 HOURS SUBQ 01/09/19 21:00 02/05/19 20:59 Insulin Aspart (NovoLOG) BEFORE MEALS AND HS SUBQ 01/09/19 21:00 02/05/19 20:59 01/09/19 20:41 Insulin Aspart (NovoLOG) 7 units NOVOTIAC SUBQ 01/10/19 06:30 02/06/19 11:49 Insulin Detemir (Levemir) 18 units EVERY 12 HOURS SUBQ 01/09/19 21:00 02/05/19 22:29 01/09/19 20:39 Lorazepam (Ativan 2mg/ml 1ml) 0.5 mg Q4H PRN IV For Anxiety 01/09/19 19:42 01/13/19 19:41 Lorazepam (Ativan 2mg/ml 1ml) 2 mg Q2H PRN IV SEIZURE 01/09/19 19:42 01/15/19 19:41 Morphine Sulfate (Morphine Sulfate) 1 mg Q4H PRN IVP severe pain 01/09/19 19:43 01/13/19 19:42 01/09/19 22:46 Ondansetron HCl (Zofran) 4 mg Q6H PRN IVP Nausea & Vomiting 01/09/19 20:30 02/05/19 14:24 Polyethylene Glycol (Miralax) 17 gm HSPRN PRN ORAL Constipation 01/09/19 19:43 02/08/19 19:42 Quetiapine Fumarate (SEROquel) 200 mg BEDTIME ORAL 01/09/19 21:00 02/05/19 20:59 01/09/19 22:44 Zolpidem Tartrate (Ambien) 5 mg HSPRN PRN ORAL Insomnia 01/09/19 19:43 01/16/19 19:42 Tavo Malhotra MD Jan 10, 2019 06:23
[2019-01-10] MEDS: Morphine Sulfate 2mg/ml Inj(IV/IM USE ONLY) IVP PRN ×5 (06:25→22:55)
--- NOTE | 2019-01-10 07:00 | Consultation ---
DATE OF CONSULTATION: 01/08/2019 CONSULTING PHYSICIAN: Hansel Maguire M.D. CHIEF COMPLAINT: The patient is a middle-aged male with acute coronary syndrome. I was asked to see the patient in neurologic consultation. HISTORY OF PRESENT ILLNESS: The patient is a middle-aged man with chest pain . normal CT of the chest. 03:14. Vital signs are all fine. the patient has generalized seizures. He is on Ativan 4 mg IV, Depakote He has neuropathy, syncopal episodes in the past. In November 2018, he was admitted to the hospital and discharged a few days later. CT scan, however, was negative. The patient denies any The patient's medication on presentation 0n Seroquel, Catapres, Lexapro, Levemir, NovoLog insulin, aspirin, Ativan as an outpatient. The patient has component of headaches, myalgias at times . He is lethargic after he is on Ativan. By the way, he is a 38-year-old left-handed white male.. The patient states he takes Depakote regularly and never skipped. He states he takes 5 tablets a day. There is no family history of neurologic disease. PAST MEDICAL HISTORY: 1. Hypertension. 2. Seizure. 3. Adult-onset diabetes mellitus, insulin-dependent. 4. Probable bipolar disorder. 5. Possible coronary artery disease. 6. Obesity. 7. Lumbar spine surgery, reason unknown. ALLERGIES: He is allergic to Haldol. SURGERIES: See above. SOCIAL HISTORY: He is alone. He has 1 child in good health. FAMILY HISTORY: He states his parents are in good health. REVIEW OF SYSTEMS: Cannot be obtained. PHYSICAL EXAMINATION: GENERAL: A well-developed obese man, lying in bed, in no acute distress. VITAL SIGNS: Blood pressure 128/82, pulse is 111 and regular, respiration is 19, temperature is 98.4 degrees. HEENT: Examination of head, ears, eyes, nose, mouth and throat reveals a scalp lesion in the right posterior frontal area. There is tenderness in the scalp. He has poor dentition. There is a large vertical suboccipital scar. NECK: Supple. Carotids are +2. I could not hear any bruit. I could not hear any carotid sounds. LUNGS: Lungs are clear to auscultation. CARDIOVASCULAR: PMI was in the fifth intercostal space, midclavicular line. JVP was not seen. Heart tones were distant. Normal S1 and S2. s3,s4 murmurs or rubs. ABDOMEN: His abdomen is obese. Bowel sounds are intact. There is no tenderness, masses, or organomegaly. BACK: There is no tenderness to percussion or muscle spasm. EXTREMITIES: There is no edema or erythema. Peripheral pulses in his arms and legs are +2. NEUROLOGIC EXAMINATION AND MENTAL STATUS: The patient is lethargic, falls asleep easily when not stimulated. If we touch him he will wake up and answer questions. Speech was dysarthric. Judgment: Judgment could not be tested. Affect: Affect was flat. Memory: Past memory was probably intact as well as Immediate recall 3 of 3 objects, recent recall 0 of 3 objects. Intellect: Not tested. Orientation: He thought the date was June 10, 2017. However, he knew he is in the [facility] and he is oriented to person. Language function: He could not spell world forwards or backwards. His speech was dysarthric. Comprehension was fair. There was right and left confusion and finger agnosia. However, he could repeat today is a nice day. CRANIAL NERVE EXAMINATION: Cranial Nerve II: Visual wilson are intact. Cranial Nerves III, IV, and : The patient has abnormal eye movements, _ and upgaze appear to be impaired. Pupils are 5 mm, round, and reactive to light, normal size. Cranial Nerve V: Facial sensation is intact to pinprick and probably to fine touch. Pterygoid strength is 5/5. Cranial Nerve VII: He has decreased left nasolabial fold. 1cranial 8 partially intact. CRANIAL NERVE 11: Is probable normal. Cranial Nerve XII: Tongue protrudes in the midline without fasciculations or atrophy. MUSCLE EXAMINATION: Muscle bulk is normal. Tone is decreased. Strength is generally 5/5 in all extremities. He did have a left pronator drift. Reflexes are 0 in the upper and lower extremities and probable downgoing toes and testing for Babinski response. Coordination, [id number] interestingly enough and done normally on the left. He had trouble on the right side. He could not touch his nose. [id number] testing is normal. SENSORY EXAMINATION: The patient is partially intact to pinprick in all 4 extremities including his feet. IMPRESSION: The patient has seizures I will continue him on Depakote 500 mg twice a day. I will obtain EEG and CT scan of brain and continue Depakote 500 mg bid and obtain EEG and CT scan of the brain. Hansel Maguire MD DR: MULU JOB#: [id number] CC: JERALD
--- NOTE | 2019-01-10 07:18 | NUR ---
HAND-OFF: Report given to Saranya Umana
[2019-01-10] MEDS: Depakote 500mg tab ORAL SCH ×2 (08:06→21:33)
[2019-01-10] MEDS: Heparin 5000 units/ml inj SUBQ SCH ×2 (08:07→21:00)
[2019-01-10] MEDS: Aspirin Baby 81mg ORAL SCH (08:07)
[2019-01-10] MEDS: Levemir Flexpen SUBQ SCH ×2 (08:15→21:40)
--- NOTE | 2019-01-10 08:46 | General Progress Note ---
Assessment/Plan Assessment/Plan (1) Chiari malformation type II (2) Degenerative disc disease, cervical (3) Lumbar degenerative disc disease (4) Arthritis, lumbar spine (5) Peripheral neuropathy (6) Hydrocephalus (7) Diabetes mellitus Pt will be continued on the Morphine and Paloma. Pt was d/w Dr. Napier and he concurred. Subjective Date patient seen: Jan 10, 2019 Time patient seen: 07:00 - am Allergies: Coded Allergies: HALOPERIDOL (Verified Allergy, Unknown, 11/30/18) Subjective Constitutional: Reports: weakness, Denies: chills, diaphoresis, fever, malaise , no symptoms, other HEENT: Denies: blurred vision, double vision, ear discharge, ear pain, eye pain , mouth pain, mouth swelling, no symptoms, nose congestion, nose pain, other, tearing, throat pain, throat swelling Cardiovascular: Denies: chest pain, edema, irregular heart rate, lightheadedness, no symptoms, other, palpitations, syncope Respiratory: Denies: SOB at rest, SOB with excertion, cough, no symptoms, orthopnea, other, shortness of breath, sputum, stridor, wheezing Gastrointestinal/Abdominal: Denies: abdomen distended, abdominal pain, black stools, blood in stool, constipated, diarrhea, difficulty swallowing, nausea, no symptoms, other, poor appetite, poor fluid intake, rectal bleeding, tarry stools, vomiting Genitourinary: Denies: burning, discharge, flank pain, frequency, hematuria, incontinence, no symptoms, other, pain, urgency Neurologic/Psychiatric: Reports: headache, numbness, tingling, weakness, Denies : anxiety, depressed, emotional problems, no symptoms, other, paresthesia, pre- existing deficit, seizure, tremors Endocrine: Denies: excessive sweating, flushing, increased hunger, increased thirst, increased urine, intolerance to cold, intolerance to heat, no symptoms, other, unexplained weight gain, unexplained weight loss Hematologic/Lymphatic: Denies: anemia, easy bleeding, easy bruising, no symptoms, other Subjective Patient is in bed and has no signs of pain or distress. Pain is tolerated on the Paloma and Morphine. No new complaints at this time. Objective Last 24 Hour Vital Signs Date Time Temp Pulse Resp B/P (MAP) Pulse Ox O2 Delivery O2 Flow Rate FiO2 01/10/19 04:00 Venturi Mask 3/18/19 04:00 98.1 81 20 117/65 (82) 95 01/10/19 02:04 97.9 94 18 114/73 (87) 96 01/10/19 00:05 96 20 Room Air 21 01/09/19 23:00 Venturi Mask 01/09/19 22:00 98.5 102 20 127/78 (94) 98 01/09/19 21:00 98.5 102 20 127/78 (94) 98 01/09/19 21:00 Venturi Mask 01/09/19 18:00 105 21 126/81 (96) 99 01/09/19 17:00 100 22 111/64 (80) 99 01/09/19 16:00 98.4 99 17 132/68 (89) 96 01/09/19 16:00 Venturi Mask 01/09/19 15:00 105 21 107/53 (71) 98 01/09/19 14:00 96 21 127/71 (89) 93 01/09/19 13:00 100 21 120/76 (91) 96 01/09/19 12:00 98.2 99 21 126/78 (94) 97 01/09/19 12:00 Venturi Mask 01/09/19 11:00 100 22 124/52 (76) 97 01/09/19 10:00 101 21 113/76 (88) 95 01/09/19 09:00 108 20 119/84 (96) 95 Intake and Output 01/09/19 01/10/19 19:00 07:00 Intake Total 520 ml Output Total 2100 ml Balance -1580 ml Intake Oral 520 ml Output Urine Total 2100 ml # Voids 2 Height (Feet): 5 Height (Inches): 11.00 Weight (Pounds): 261 Objective General Appearance: no apparent distress, alert EENT: PERRL/EOMI, normal ENT inspection Neck: normal alignment, supple Cardiovascular: normal rate, regular rhythm Respiratory/Chest: lungs clear, normal breath sounds Abdomen: non tender, soft Extremities: non-tender Edema: trace edema Neurologic: alert, responsive Skin: warm/dry Joao Munoz Jan 10, 2019 08:46
[2019-01-10 09:00] VITALS: BP 125/77
[2019-01-10 09:58] LABS: BASOPHILS % (AUTO) 1.1 % (0.0-2.0); EOSINOPHILS % (AUTO) 2.4 % (0.0-3.0); HEMOGLOBIN 14.6 G/DL (14.2-18.0); LYMPHOCYTES % (AUTO) 32.8 % (20.0-45.0); MEAN CORPUSCULAR VOLUME 85 FL (80-99); MONOCYTES % (AUTO) 5.8 % (1.0-10.0); NEUTROPHILS % (AUTO) 57.9 % (45.0-75.0); PLATELET COUNT 171 K/UL (150-450); RED CELL DISTRIBUTION WIDTH 12.3 % (11.6-14.8); WHITE BLOOD COUNT 7.6 K/UL (4.8-10.8)
[2019-01-10 10:10] LABS: ANION GAP 9 mmol/L (5-15); BLOOD UREA NITROGEN 17 mg/dL (7-18); CARBON DIOXIDE 27 MMOL/L (21-32); CHLORIDE 103 MMOL/L (98-107); CREATININE 0.9 MG/DL (0.55-1.30); POTASSIUM 3.8 MMOL/L (3.5-5.1); SODIUM 139 MMOL/L (136-145)
--- NOTE | 2019-01-10 10:38 | NUR ---
RECEIVED PATIENT IN BED AWAKE.. NO RESPIRATORY DISTRESS OR SOB DENIES NO CHEST PAIN OR DISCOMFORT... AMBULATING AROUND HALLWAY, GAIT STEADY INFORMED TO USE CALL LIGHT.. FOR NEEDS NOTED.. C/O MODERATED PAIN AND DISCOMFORT GENERALIZED.. PAIN MEDICATION GIVEN NOTED CALL LIGHT IN REACH
--- NOTE | 2019-01-10 12:25 | NUR ---
PATIENT HAS OPEN WOUND ON THE TOP OF HIS HEAD MD. AWARE.. NO OOZING OR BLEEDING NOTED
--- NOTE | 2019-01-10 12:44 | NUR ---
NO SEIZURE ACTIVITY AT THIS TIME.
--- NOTE | 2019-01-10 13:08 | Pulmonology Progress Note ---
Assessment/Plan Problems: (1) Costochondritis (2) COPD (chronic obstructive pulmonary disease) (3) ACS (acute coronary syndrome) (4) Diabetes mellitus (5) Noncompliance Assessment/Plan symptomatic treatment seizures or pseudo seizures better controlled sliding scale diabetic diet pain management doing better dc planning. Subjective ROS Limited/Unobtainable: No Constitutional: Reports: no symptoms Allergies: Coded Allergies: HALOPERIDOL (Verified Allergy, Unknown, 11/30/18) Objective Last 24 Hour Vital Signs Date Time Temp Pulse Resp B/P (MAP) Pulse Ox O2 Delivery O2 Flow Rate FiO2 01/10/19 12:00 Room Air 01/10/19 08:00 Room Air 01/10/19 04:00 Venturi Mask 01/10/19 04:00 98.1 81 20 117/65 (82) 95 01/10/19 02:04 97.9 94 18 114/73 (87) 96 01/10/19 00:05 96 20 Room Air 21 01/09/19 23:00 Venturi Mask 01/09/19 22:00 98.5 102 20 127/78 (94) 98 01/09/19 21:00 98.5 102 20 127/78 (94) 98 01/09/19 21:00 Venturi Mask 01/09/19 18:00 105 21 126/81 (96) 99 01/09/19 17:00 100 22 111/64 (80) 99 01/09/19 16:00 98.4 99 17 132/68 (89) 96 01/09/19 16:00 Venturi Mask 01/09/19 15:00 105 21 107/53 (71) 98 01/09/19 14:00 96 21 127/71 (89) 93 Intake and Output 01/09/19 01/10/19 19:00 07:00 Intake Total 520 ml Output Total 2100 ml Balance -1580 ml Intake Oral 520 ml Output Urine Total 2100 ml # Voids 2 General Appearance: WD/WN HEENT: normocephalic, atraumatic Respiratory/Chest: chest wall non-tender, lungs clear Cardiovascular: normal peripheral pulses, normal rate Abdomen: normal bowel sounds, soft, non tender Genitourinary: normal external genitalia Extremities: no clubbing Skin: no rash, no lesions, no ulcers Neurologic/Psychiatric: laboratory sampler II-XII grossly normal, no motor/sensory deficits, abnormal gait Lymphatic: no neck adenopathy Musculoskeletal: normal muscle bulk Laboratory Tests 01/10/19 09:45: White Blood Count 7.6, Red Blood Count 4.80, Hemoglobin 14.6, Hematocrit 41.0L, Mean Corpuscular Volume 85, Mean Corpuscular Hemoglobin 30.4, Mean Corpuscular Hemoglobin Concent 35.6, Red Cell Distribution Width 12.3, Platelet Count 171, Mean Platelet Volume 8.9, Neutrophils (%) (Auto) 57.9, Lymphocytes (%) (Auto) 32.8, Monocytes (%) (Auto) 5.8, Eosinophils (%) (Auto) 2.4, Basophils (%) (Auto ) 1.1, Sodium Level 139, Potassium Level 3.8, Chloride Level 103, Carbon Dioxide Level 27, Anion Gap 9, Blood Urea Nitrogen 17, Creatinine 0.9, Estimat Glomerular Filtration Rate > 60, Glucose Level 207H, Calcium Level 9.0 Current Medications Medications (Trade) Dose Ordered Sig/Sofia Route PRN Reason Start Time Stop Time Status Last Admin Dose Admin Acetaminophen (Tylenol) 650 mg Q4H PRN ORAL fever 01/09/19 19:40 02/05/19 19:39 Acetaminophen/ Hydrocodone Bitart ([place] 10/325) 1 tab Q6H PRN ORAL moderate pain 01/09/19 19:42 01/16/19 19:41 Al Hydroxide/Mg Hydroxide (Mylanta II) 30 ml Q6H PRN ORAL dyspepsia 01/09/19 19:41 02/05/19 19:40 Albuterol/ Ipratropium (Albuterol/ Ipratropium) 3 ml Q4H PRN HHN Shortness of Breath 01/09/19 19:41 01/11/19 19:40 Alprazolam (Xanax) 0.5 mg Q6H PRN ORAL For Anxiety 01/09/19 19:41 01/13/19 19:40 Aspirin (ASA) 81 mg DAILY ORAL 01/10/19 09:00 02/06/19 08:59 01/10/19 08:07 Clonidine HCl (Catapres Tab) 0.1 mg Q4H PRN ORAL For High Blood Pressure 01/09/19 19:41 02/05/19 19:40 Dextrose (Dextrose 50%) 25 ml Q30M PRN IV Hypoglycemia 3/17/19 20:00 02/05/19 17:59 Dextrose (Dextrose 50%) 50 ml Q30M PRN IV Hypoglycemia 01/09/19 20:00 02/05/19 17:59 Divalproex Sodium (Depakote) 500 mg Q12HR ORAL 01/09/19 21:00 02/05/19 20:59 01/10/19 08:06 Escitalopram Oxalate (Lexapro) 10 mg DAILY ORAL 01/10/19 09:00 02/06/19 08:59 01/10/19 08:06 Heparin Sodium (Porcine) (Heparin 5000 units/ml) 5,000 units EVERY 12 HOURS SUBQ 01/09/19 21:00 02/05/19 20:59 Insulin Aspart (NovoLOG) BEFORE MEALS AND HS SUBQ 01/09/19 21:00 02/05/19 20:59 01/10/19 12:11 Insulin Aspart (NovoLOG) 7 units NOVOTIAC SUBQ 01/10/19 06:30 02/06/19 11:49 01/10/19 12:12 Insulin Detemir (Levemir) 18 units EVERY 12 HOURS SUBQ 01/09/19 21:00 02/05/19 22:29 01/10/19 08:15 Lorazepam (Ativan 2mg/ml 1ml) 0.5 mg Q4H PRN IV For Anxiety 01/09/19 19:42 01/13/19 19:41 Lorazepam (Ativan 2mg/ml 1ml) 2 mg Q2H PRN IV SEIZURE 01/09/19 19:42 01/15/19 19:41 Morphine Sulfate (Morphine Sulfate) 1 mg Q4H PRN IVP severe pain 01/09/19 19:43 01/13/19 19:42 01/10/19 10:32 Ondansetron HCl (Zofran) 4 mg Q6H PRN IVP Nausea & Vomiting 01/09/19 20:30 02/05/19 14:24 01/10/19 12:34 Polyethylene Glycol (Miralax) 17 gm HSPRN PRN ORAL Constipation 01/09/19 19:43 02/08/19 19:42 Quetiapine Fumarate (SEROquel) 200 mg BEDTIME ORAL 01/09/19 21:00 02/05/19 20:59 01/09/19 22:44 Zolpidem Tartrate (Ambien) 5 mg HSPRN PRN ORAL Insomnia 01/09/19 19:43 01/16/19 19:42 Lashanda Pham MD Jan 10, 2019 13:08
--- NOTE | 2019-01-10 14:28 | General Progress Note ---
Assessment/Plan Problem List: (1) ACS (acute coronary syndrome) ICD Codes: I24.9 - Acute ischemic heart disease, unspecified SNOMED: 457679825 (2) Diabetes mellitus ICD Codes: E11.9 - Diabetes mellitus SNOMED: 48019703 (3) COPD (chronic obstructive pulmonary disease) ICD Codes: J44.9 - Chronic obstructive pulmonary disease, unspecified SNOMED: 51101510 (4) CVA (cerebral vascular accident) ICD Codes: I63.9 - Cerebral infarction, unspecified SNOMED: 328421831 (5) Uncontrolled seizures ICD Codes: R56.9 - Unspecified convulsions SNOMED: 24913199 Status: unchanged Assessment/Plan seizure control pt diet pain control cardio f/u bp bs control cbc bmp am dc plan if cler Subjective Constitutional: Reports: weakness Allergies: Coded Allergies: HALOPERIDOL (Verified Allergy, Unknown, 11/30/18) All Systems: reviewed and negative except above Subjective o2nc had seizure yesterday sl sob Objective Last 24 Hour Vital Signs Date Time Temp Pulse Resp B/P (MAP) Pulse Ox O2 Delivery O2 Flow Rate FiO2 01/10/19 12:00 Room Air 01/10/19 08:00 Room Air 01/10/19 07:00 83 18 Room Air 21 01/10/19 04:00 Venturi Mask 01/10/19 04:00 98.1 81 20 117/65 (82) 95 01/10/19 02:04 97.9 94 18 114/73 (87) 96 01/10/19 00:05 96 20 Room Air 21 01/09/19 23:00 Venturi Mask 01/09/19 22:00 98.5 102 20 127/78 (94) 98 01/09/19 21:00 98.5 102 20 127/78 (94) 98 01/09/19 21:00 Venturi Mask 01/09/19 18:00 105 21 126/81 (96) 99 01/09/19 17:00 100 22 111/64 (80) 99 01/09/19 16:00 98.4 99 17 132/68 (89) 96 01/09/19 16:00 Venturi Mask 01/09/19 15:00 105 21 107/53 (71) 98 Intake and Output 01/09/19 01/10/19 19:00 07:00 Intake Total 520 ml Output Total 2100 ml Balance -1580 ml Intake Oral 520 ml Output Urine Total 2100 ml # Voids 2 Laboratory Tests 01/10/19 09:45: White Blood Count 7.6, Red Blood Count 4.80, Hemoglobin 14.6, Hematocrit 41.0L, Mean Corpuscular Volume 85, Mean Corpuscular Hemoglobin 30.4, Mean Corpuscular Hemoglobin Concent 35.6, Red Cell Distribution Width 12.3, Platelet Count 171, Mean Platelet Volume 8.9, Neutrophils (%) (Auto) 57.9, Lymphocytes (%) (Auto) 32.8, Monocytes (%) (Auto) 5.8, Eosinophils (%) (Auto) 2.4, Basophils (%) (Auto ) 1.1, Sodium Level 139, Potassium Level 3.8, Chloride Level 103, Carbon Dioxide Level 27, Anion Gap 9, Blood Urea Nitrogen 17, Creatinine 0.9, Estimat Glomerular Filtration Rate > 60, Glucose Level 207H, Calcium Level 9.0 Height (Feet): 5 Height (Inches): 11.00 Weight (Pounds): 261 General Appearance: lethargic EENT: normal ENT inspection Neck: normal alignment Cardiovascular: normal peripheral pulses, normal rate, regular rhythm Respiratory/Chest: chest wall non-tender, lungs clear, normal breath sounds Abdomen: normal bowel sounds, non tender, soft Extremities: normal inspection Edema: no edema noted Arm (L), no edema noted Arm (R), no edema noted Leg (L), no edema noted Leg (R), no edema noted Pedal (L), no edema noted Pedal (R), no edema noted Generalized Neurologic: responsive, motor weakness Skin: normal pigmentation, warm/dry Aniceto Sepulveda DO Jan 10, 2019 14:28
[2019-01-10 15:24] VITALS: BP 117/80
--- NOTE | 2019-01-10 15:30 | Progress Note ---
DATE: 01/10/2019 SUBJECTIVE: This is a male patient. This patient continues to have some confusion, some mood lability, decline in cognition below his baseline. That is why, he does require daily psychiatric consultation. He continues to have mood lability secondary to acute coronary syndrome, diabetes, COPD. MENTAL STATUS EXAMINATION: This is a 38-year-old male. Appearance is disheveled. Attitude, irritable and agitated. Affect, guarded and restricted. Intellect poor. Mood depressed and anxious. Motor activity, psychomotor agitation. Attention span is poor. Orientation x2. Speech is pressured. Thought process, disorganized and illogical. Thought content, auditory hallucinations, paranoid delusions. Insight and judgment is poor. DIAGNOSIS: Schizoaffective, bipolar type. PLAN: Treat him with Depakote 500 mg q.12 h., Seroquel 200 mg at bedtime, Xanax 2.5 mg every 6 hours p.r.n. anxiety and agitation, Lexapro 10 mg daily. Provided him with 20 minutes of cognitive behavioral therapy to help him identify his automatic negative thoughts and help him convert those negative thoughts to more positive thoughts to reduce depression, anxiety, and suicidality. Chart reviewed. Discussed with staff. Seen and assessed at the bedside. 20 minutes of cognitive behavioral therapy provided. Charmaine Victor M.D. DR: SHELIA JOB#: [id number] CC:
--- NOTE | 2019-01-10 18:12 | NUR ---
PATIENT IS STABLE NO ACUTE DISTRESS PATIENT AMBULATING AROUND HALLWAY.. GAIT STEADY INFORMED PT OF FALL RISK PRECAUTION NOTED\ NO PAIN OR DISCOMFORT AT THIS TIME ALL SCHEDULED MEDICATION GIVEN CALL LIGHT IN REACH..
--- NOTE | 2019-01-10 19:25 | NUR ---
NURSE NOTES: PATIENT IS STABLE NO ACUTE DISTRESS PATIENT currently and frequently AMBULATING AROUND HALLWAY.. GAIT STEADY INFORMED PT OF FALL RISK PRECAUTION NOTED\ NO PAIN OR DISCOMFORT AT THIS TIME ALL SCHEDULED MEDICATION GIVEN CALL LIGHT IN REACH Continuing to monitor
[2019-01-10 20:00] VITALS: BP 109/67
[2019-01-10] MEDS: QUEtiapine 200mg tab ORAL SCH (22:55)
[2019-01-11] MEDS: Morphine Sulfate 2mg/ml Inj(IV/IM USE ONLY) IVP PRN ×5 (03:39→21:20)
[2019-01-11 04:02] VITALS: BP 113/62
[2019-01-11] MEDS: NovoLOG Insulin Flexpen SUBQ SCH ×7 (05:55→21:20)
--- NOTE | 2019-01-11 06:24 | General Progress Note ---
Assessment/Plan Problem List: (1) COPD (chronic obstructive pulmonary disease) ICD Codes: J44.9 - Chronic obstructive pulmonary disease, unspecified SNOMED: 03657977 (2) Diabetes mellitus ICD Codes: E11.9 - Diabetes mellitus SNOMED: 91556403 Assessment/Plan continue Levemir 18 units bid continuu Novolog 7 units ac tid continue NISS ac / hs Subjective Allergies: Coded Allergies: HALOPERIDOL (Verified Allergy, Unknown, 11/30/18) All Systems: reviewed and negative except above Subjective events noted Current Medications Medications (Trade) Dose Ordered Sig/Sofia Route PRN Reason Start Time Stop Time Status Last Admin Dose Admin Acetaminophen (Tylenol) 650 mg Q4H PRN ORAL fever 01/09/19 19:40 02/05/19 19:39 Acetaminophen/ Hydrocodone Bitart ([place] 10/325) 1 tab Q6H PRN ORAL moderate pain 01/09/19 19:42 01/16/19 19:41 Al Hydroxide/Mg Hydroxide (Mylanta II) 30 ml Q6H PRN ORAL dyspepsia 01/09/19 19:41 02/05/19 19:40 Albuterol/ Ipratropium (Albuterol/ Ipratropium) 3 ml Q4H PRN HHN Shortness of Breath 01/09/19 19:41 01/11/19 19:40 Alprazolam (Xanax) 0.5 mg Q6H PRN ORAL For Anxiety 01/09/19 19:41 01/13/19 19:40 Aspirin (ASA) 81 mg DAILY ORAL 01/10/19 09:00 02/06/19 08:59 01/10/19 08:07 Clonidine HCl (Catapres Tab) 0.1 mg Q4H PRN ORAL For High Blood Pressure 01/09/19 19:41 02/05/19 19:40 Dextrose (Dextrose 50%) 25 ml Q30M PRN IV Hypoglycemia 01/09/19 20:00 02/05/19 17:59 Dextrose (Dextrose 50%) 50 ml Q30M PRN IV Hypoglycemia 01/09/19 20:00 02/05/19 17:59 Divalproex Sodium (Depakote) 500 mg Q12HR ORAL 01/09/19 21:00 02/05/19 20:59 01/10/19 21:33 Escitalopram Oxalate (Lexapro) 10 mg DAILY ORAL 01/10/19 09:00 02/06/19 08:59 01/10/19 08:06 Heparin Sodium (Porcine) (Heparin 5000 units/ml) 5,000 units EVERY 12 HOURS SUBQ 01/09/19 21:00 02/05/19 20:59 Insulin Aspart (NovoLOG) BEFORE MEALS AND HS SUBQ 01/09/19 21:00 02/05/19 20:59 01/11/19 05:55 Insulin Aspart (NovoLOG) 7 units NOVOTIAC SUBQ 01/10/19 06:30 02/06/19 11:49 01/11/19 05:56 Insulin Detemir (Levemir) 18 units EVERY 12 HOURS SUBQ 01/09/19 21:00 02/05/19 22:29 01/10/19 21:40 Lorazepam (Ativan 2mg/ml 1ml) 0.5 mg Q4H PRN IV For Anxiety 01/09/19 19:42 01/13/19 19:41 Lorazepam (Ativan 2mg/ml 1ml) 2 mg Q2H PRN IV SEIZURE 01/09/19 19:42 01/15/19 19:41 Morphine Sulfate (Morphine Sulfate) 1 mg Q4H PRN IVP severe pain 01/09/19 19:43 01/13/19 19:42 01/11/19 03:39 Ondansetron HCl (Zofran) 4 mg Q6H PRN IVP Nausea & Vomiting 01/09/19 20:30 02/05/19 14:24 01/10/19 22:55 Polyethylene Glycol (Miralax) 17 gm HSPRN PRN ORAL Constipation 01/09/19 19:43 02/08/19 19:42 Quetiapine Fumarate (SEROquel) 200 mg BEDTIME ORAL 01/09/19 21:00 02/05/19 20:59 01/10/19 22:55 Zolpidem Tartrate (Ambien) 5 mg HSPRN PRN ORAL Insomnia 01/09/19 19:43 01/16/19 19:42 Objective Last 24 Hour Vital Signs Date Time Temp Pulse Resp B/P (MAP) Pulse Ox O2 Delivery O2 Flow Rate FiO2 01/11/19 04:11 Venturi Mask 01/11/19 04:02 97.6 70 19 113/62 (79) 97 01/11/19 00:00 Venturi Mask 01/10/19 21:00 Venturi Mask 01/10/19 20:57 63 20 Room Air 21 01/10/19 20:00 98.5 75 19 109/67 (81) 96 01/10/19 16:00 Room Air 01/10/19 15:24 98.3 108 20 117/80 (92) 01/10/19 15:22 98.1 01/10/19 12:00 Room Air 01/10/19 09:00 97.6 105 19 125/77 (93) 97 01/10/19 08:00 Room Air 01/10/19 07:00 83 18 Room Air 21 Intake and Output 01/10/19 01/11/19 18:59 06:59 Intake Total 2325 ml Balance 2325 ml Intake Oral 2325 ml # Voids 12 8 # Bowel Movements 4 Laboratory Tests 01/10/19 09:45: White Blood Count 7.6, Red Blood Count 4.80, Hemoglobin 14.6, Hematocrit 41.0L, Mean Corpuscular Volume 85, Mean Corpuscular Hemoglobin 30.4, Mean Corpuscular Hemoglobin Concent 35.6, Red Cell Distribution Width 12.3, Platelet Count 171, Mean Platelet Volume 8.9, Neutrophils (%) (Auto) 57.9, Lymphocytes (%) (Auto) 32.8, Monocytes (%) (Auto) 5.8, Eosinophils (%) (Auto) 2.4, Basophils (%) (Auto ) 1.1, Sodium Level 139, Potassium Level 3.8, Chloride Level 103, Carbon Dioxide Level 27, Anion Gap 9, Blood Urea Nitrogen 17, Creatinine 0.9, Estimat Glomerular Filtration Rate > 60, Glucose Level 207H, Calcium Level 9.0 Height (Feet): 5 Height (Inches): 11.00 Weight (Pounds): 261 General Appearance: no apparent distress Neck: normal alignment Cardiovascular: normal rate Respiratory/Chest: lungs clear Abdomen: normal bowel sounds Pelvis: normal external exam Objective Current Medications Medications (Trade) Dose Ordered Sig/Sofia Route PRN Reason Start Time Stop Time Status Last Admin Dose Admin Acetaminophen (Tylenol) 650 mg Q4H PRN ORAL fever 01/09/19 19:40 02/05/19 19:39 Acetaminophen/ Hydrocodone Bitart ([place] 10/325) 1 tab Q6H PRN ORAL moderate pain 01/09/19 19:42 01/16/19 19:41 Al Hydroxide/Mg Hydroxide (Mylanta II) 30 ml Q6H PRN ORAL dyspepsia 01/09/19 19:41 02/05/19 19:40 Albuterol/ Ipratropium (Albuterol/ Ipratropium) 3 ml Q4H PRN HHN Shortness of Breath 01/09/19 19:41 01/11/19 19:40 Alprazolam (Xanax) 0.5 mg Q6H PRN ORAL For Anxiety 01/09/19 19:41 01/13/19 19:40 Aspirin (ASA) 81 mg DAILY ORAL 01/10/19 09:00 02/06/19 08:59 01/10/19 08:07 Clonidine HCl (Catapres Tab) 0.1 mg Q4H PRN ORAL For High Blood Pressure 01/09/19 19:41 02/05/19 19:40 Dextrose (Dextrose 50%) 25 ml Q30M PRN IV Hypoglycemia 01/09/19 20:00 02/05/19 17:59 Dextrose (Dextrose 50%) 50 ml Q30M PRN IV Hypoglycemia 01/09/19 20:00 02/05/19 17:59 Divalproex Sodium (Depakote) 500 mg Q12HR ORAL 01/09/19 21:00 02/05/19 20:59 01/10/19 21:33 Escitalopram Oxalate (Lexapro) 10 mg DAILY ORAL 01/10/19 09:00 02/06/19 08:59 01/10/19 08:06 Heparin Sodium (Porcine) (Heparin 5000 units/ml) 5,000 units EVERY 12 HOURS SUBQ 01/09/19 21:00 02/05/19 20:59 Insulin Aspart (NovoLOG) BEFORE MEALS AND HS SUBQ 01/09/19 21:00 02/05/19 20:59 01/11/19 05:55 Insulin Aspart (NovoLOG) 7 units NOVOTIAC SUBQ 01/10/19 06:30 02/06/19 11:49 01/11/19 05:56 Insulin Detemir (Levemir) 18 units EVERY 12 HOURS SUBQ 01/09/19 21:00 02/05/19 22:29 01/10/19 21:40 Lorazepam (Ativan 2mg/ml 1ml) 0.5 mg Q4H PRN IV For Anxiety 01/09/19 19:42 01/13/19 19:41 Lorazepam (Ativan 2mg/ml 1ml) 2 mg Q2H PRN IV SEIZURE 01/09/19 19:42 01/15/19 19:41 Morphine Sulfate (Morphine Sulfate) 1 mg Q4H PRN IVP severe pain 01/09/19 19:43 01/13/19 19:42 01/11/19 03:39 Ondansetron HCl (Zofran) 4 mg Q6H PRN IVP Nausea & Vomiting 01/09/19 20:30 02/05/19 14:24 01/10/19 22:55 Polyethylene Glycol (Miralax) 17 gm HSPRN PRN ORAL Constipation 01/09/19 19:43 02/08/19 19:42 Quetiapine Fumarate (SEROquel) 200 mg BEDTIME ORAL 01/09/19 21:00 02/05/19 20:59 01/10/19 22:55 Zolpidem Tartrate (Ambien) 5 mg HSPRN PRN ORAL Insomnia 01/09/19 19:43 01/16/19 19:42 Item Value Date Time Bedside Blood Glucose 174 mg/dl H 01/11/19 0559 Bedside Blood Glucose 146 mg/dl H 01/10/19 2140 Bedside Blood Glucose 246 mg/dl H 01/10/19 1746 Bedside Blood Glucose 231 mg/dl H 01/10/19 1212 Bedside Blood Glucose 137 mg/dl H 01/10/19 0815 Bedside Blood Glucose 169 mg/dl H 01/10/19 0621 Tavo Malhotra MD Jan 11, 2019 06:24
--- NOTE | 2019-01-11 07:42 | NUR ---
HAND-OFF: Report given to JAKE Conde.
[2019-01-11] MEDS: Levemir Flexpen SUBQ SCH ×3 (08:21→21:19)
[2019-01-11] MEDS: Heparin 5000 units/ml inj SUBQ SCH ×2 (08:22→21:00)
[2019-01-11] MEDS: Depakote 500mg tab ORAL SCH ×2 (08:23→21:20)
[2019-01-11] MEDS: Aspirin Baby 81mg ORAL SCH (08:23)
--- NOTE | 2019-01-11 08:46 | General Progress Note ---
Assessment/Plan Assessment/Plan (1) Chiari malformation type II (2) Degenerative disc disease, cervical (3) Lumbar degenerative disc disease (4) Arthritis, lumbar spine (5) Peripheral neuropathy (6) Hydrocephalus (7) Diabetes mellitus Pt will be continued on the Morphine and [place]. Pt was d/w Dr. Napier and he concurred. Subjective Date patient seen: Jan 11, 2019 Time patient seen: 07:00 - am Allergies: Coded Allergies: HALOPERIDOL (Verified Allergy, Unknown, 11/30/18) Subjective Constitutional: Reports: weakness, Denies: chills, diaphoresis, fever, malaise , no symptoms, other HEENT: Denies: blurred vision, double vision, ear discharge, ear pain, eye pain , mouth pain, mouth swelling, no symptoms, nose congestion, nose pain, other, tearing, throat pain, throat swelling Cardiovascular: Denies: chest pain, edema, irregular heart rate, lightheadedness, no symptoms, other, palpitations, syncope Respiratory: Denies: SOB at rest, SOB with excertion, cough, no symptoms, orthopnea, other, shortness of breath, sputum, stridor, wheezing Gastrointestinal/Abdominal: Denies: abdomen distended, abdominal pain, black stools, blood in stool, constipated, diarrhea, difficulty swallowing, nausea, no symptoms, other, poor appetite, poor fluid intake, rectal bleeding, tarry stools, vomiting Genitourinary: Denies: burning, discharge, flank pain, frequency, hematuria, incontinence, no symptoms, other, pain, urgency Neurologic/Psychiatric: Reports: headache, numbness, tingling, weakness, Denies : anxiety, depressed, emotional problems, no symptoms, other, paresthesia, pre- existing deficit, seizure, tremors Endocrine: Denies: excessive sweating, flushing, increased hunger, increased thirst, increased urine, intolerance to cold, intolerance to heat, no symptoms, other, unexplained weight gain, unexplained weight loss Hematologic/Lymphatic: Denies: anemia, easy bleeding, easy bruising, no symptoms, other Subjective Patient is showing no signs of pain or distress. Pain has been tolerated on the Morphine and [place], no new complaints at this time. Objective Last 24 Hour Vital Signs Date Time Temp Pulse Resp B/P (MAP) Pulse Ox O2 Delivery O2 Flow Rate FiO2 3/19/19 04:11 Venturi Mask 01/11/19 04:02 97.6 70 19 113/62 (79) 97 01/11/19 00:00 Venturi Mask 01/10/19 21:00 Venturi Mask 01/10/19 20:57 63 20 Room Air 21 01/10/19 20:00 98.5 75 19 109/67 (81) 96 01/10/19 16:00 Room Air 01/10/19 15:24 98.3 108 20 117/80 (92) 01/10/19 15:22 98.1 01/10/19 12:00 Room Air 01/10/19 09:00 97.6 105 19 125/77 (93) 97 Intake and Output 01/10/19 01/11/19 18:59 06:59 Intake Total 2325 ml Balance 2325 ml Intake Oral 2325 ml # Voids 12 8 # Bowel Movements 4 Laboratory Tests 01/10/19 09:45: White Blood Count 7.6, Red Blood Count 4.80, Hemoglobin 14.6, Hematocrit 41.0L, Mean Corpuscular Volume 85, Mean Corpuscular Hemoglobin 30.4, Mean Corpuscular Hemoglobin Concent 35.6, Red Cell Distribution Width 12.3, Platelet Count 171, Mean Platelet Volume 8.9, Neutrophils (%) (Auto) 57.9, Lymphocytes (%) (Auto) 32.8, Monocytes (%) (Auto) 5.8, Eosinophils (%) (Auto) 2.4, Basophils (%) (Auto ) 1.1, Sodium Level 139, Potassium Level 3.8, Chloride Level 103, Carbon Dioxide Level 27, Anion Gap 9, Blood Urea Nitrogen 17, Creatinine 0.9, Estimat Glomerular Filtration Rate > 60, Glucose Level 207H, Calcium Level 9.0 Height (Feet): 5 Height (Inches): 11.00 Weight (Pounds): 261 Objective General Appearance: no apparent distress, alert EENT: PERRL/EOMI, normal ENT inspection Neck: normal alignment, supple Cardiovascular: normal rate, regular rhythm Respiratory/Chest: lungs clear, normal breath sounds Abdomen: non tender, soft Extremities: non-tender Edema: trace edema Neurologic: alert, responsive Skin: warm/dry Joao Munoz Jan 11, 2019 08:46
[2019-01-11] MEDS: LORazepam Inj 2mg/ml 1ml IV PRN (10:32)
[2019-01-11 11:23] LABS: EOSINOPHILS % (AUTO) 2.8 % (0.0-3.0); HEMATOCRIT 42.6 % (42.0-52.0); HEMOGLOBIN 14.6 G/DL (14.2-18.0); LYMPHOCYTES % (AUTO) 37.7 % (20.0-45.0); MEAN CORPUSCULAR VOLUME 87 FL (80-99); MONOCYTES % (AUTO) 6.1 % (1.0-10.0); NEUTROPHILS % (AUTO) 52.5 % (45.0-75.0); PLATELET COUNT 163 K/UL (150-450); RED BLOOD COUNT 4.91 M/UL (4.70-6.10); RED CELL DISTRIBUTION WIDTH 12.1 % (11.6-14.8); WHITE BLOOD COUNT 7.4 K/UL (4.8-10.8)
[2019-01-11 11:35] LABS: ANION GAP 10 mmol/L (5-15); BLOOD UREA NITROGEN 17 mg/dL (7-18); CARBON DIOXIDE 26 MMOL/L (21-32); CHLORIDE 100 MMOL/L (98-107); CREATININE 0.8 MG/DL (0.55-1.30); POTASSIUM 4.1 MMOL/L (3.5-5.1); SODIUM 136 MMOL/L (136-145)
--- NOTE | 2019-01-11 12:28 | Pulmonology Progress Note ---
Assessment/Plan Problems: (1) Costochondritis (2) COPD (chronic obstructive pulmonary disease) (3) ACS (acute coronary syndrome) (4) Diabetes mellitus (5) Noncompliance Assessment/Plan wants more morphine symptomatic treatment seizures or pseudo seizures better controlled sliding scale diabetic diet pain management doing better dc planning. Subjective ROS Limited/Unobtainable: No Constitutional: Reports: no symptoms HEENT: Repors: no symptoms Allergies: Coded Allergies: HALOPERIDOL (Verified Allergy, Unknown, 11/30/18) Objective Last 24 Hour Vital Signs Date Time Temp Pulse Resp B/P (MAP) Pulse Ox O2 Delivery O2 Flow Rate FiO2 01/11/19 08:54 97.6 01/11/19 08:00 Venturi Mask 01/11/19 04:11 Venturi Mask 01/11/19 04:02 97.6 70 19 113/62 (79) 97 01/11/19 00:00 Venturi Mask 01/10/19 21:00 Venturi Mask 01/10/19 20:57 63 20 Room Air 21 01/10/19 20:00 98.5 75 19 109/67 (81) 96 01/10/19 16:00 Room Air 01/10/19 15:24 98.3 108 20 117/80 (92) Intake and Output 01/10/19 01/11/19 19:00 07:00 Intake Total 2325 ml Balance 2325 ml Intake Oral 2325 ml # Voids 12 8 # Bowel Movements 4 Objective General Appearance: WD/WN HEENT: normocephalic, atraumatic Respiratory/Chest: chest wall non-tender, lungs clear Cardiovascular: normal peripheral pulses, normal rate Abdomen: normal bowel sounds, soft, non tender Genitourinary: normal external genitalia Extremities: no clubbing Skin: no rash, no lesions, no ulcers Neurologic/Psychiatric: body bumper II-XII grossly normal, no motor/sensory deficits, abnormal gait Lymphatic: no neck adenopathy Musculoskeletal: normal muscle bulk Laboratory Tests 01/11/19 11:10: White Blood Count 7.4, Red Blood Count 4.91, Hemoglobin 14.6, Hematocrit 42.6, Mean Corpuscular Volume 87, Mean Corpuscular Hemoglobin 29.7, Mean Corpuscular Hemoglobin Concent 34.2, Red Cell Distribution Width 12.1, Platelet Count 163, Mean Platelet Volume 7.7, Neutrophils (%) (Auto) 52.5, Lymphocytes (%) (Auto) 37.7, Monocytes (%) (Auto) 6.1, Eosinophils (%) (Auto) 2.8, Basophils (%) (Auto ) 1.0, Sodium Level 136, Potassium Level 4.1, Chloride Level 100, Carbon Dioxide Level 26, Anion Gap 10, Blood Urea Nitrogen 17, Creatinine 0.8, Estimat Glomerular Filtration Rate > 60, Glucose Level 184H, Calcium Level 9.0 Current Medications Medications (Trade) Dose Ordered Sig/Sofia Route PRN Reason Start Time Stop Time Status Last Admin Dose Admin Acetaminophen (Tylenol) 650 mg Q4H PRN ORAL fever 01/09/19 19:40 02/05/19 19:39 Acetaminophen/ Hydrocodone Bitart ([place] 10/325) 1 tab Q6H PRN ORAL moderate pain 01/09/19 19:42 01/16/19 19:41 Al Hydroxide/Mg Hydroxide (Mylanta II) 30 ml Q6H PRN ORAL dyspepsia 01/09/19 19:41 02/05/19 19:40 Albuterol/ Ipratropium (Albuterol/ Ipratropium) 3 ml Q4H PRN HHN Shortness of Breath 01/09/19 19:41 01/11/19 19:40 Alprazolam (Xanax) 0.5 mg Q6H PRN ORAL For Anxiety 01/09/19 19:41 01/13/19 19:40 Aspirin (ASA) 81 mg DAILY ORAL 01/10/19 09:00 02/06/19 08:59 01/11/19 08:23 Clonidine HCl (Catapres Tab) 0.1 mg Q4H PRN ORAL For High Blood Pressure 01/09/19 19:41 02/05/19 19:40 Dextrose (Dextrose 50%) 25 ml Q30M PRN IV Hypoglycemia 01/09/19 20:00 02/05/19 17:59 Dextrose (Dextrose 50%) 50 ml Q30M PRN IV Hypoglycemia 01/09/19 20:00 02/05/19 17:59 Divalproex Sodium (Depakote) 500 mg Q12HR ORAL 01/09/19 21:00 02/05/19 20:59 01/11/19 08:23 Escitalopram Oxalate (Lexapro) 10 mg DAILY ORAL 3/18/19 09:00 02/06/19 08:59 01/11/19 08:23 Heparin Sodium (Porcine) (Heparin 5000 units/ml) 5,000 units EVERY 12 HOURS SUBQ 01/09/19 21:00 02/05/19 20:59 Insulin Aspart (NovoLOG) BEFORE MEALS AND HS SUBQ 01/09/19 21:00 02/05/19 20:59 01/11/19 11:42 Insulin Aspart (NovoLOG) 7 units NOVOTIAC SUBQ 01/10/19 06:30 02/06/19 11:49 01/11/19 11:40 Insulin Detemir (Levemir) 18 units EVERY 12 HOURS SUBQ 01/09/19 21:00 02/05/19 22:29 01/11/19 08:31 Lorazepam (Ativan 2mg/ml 1ml) 0.5 mg Q4H PRN IV For Anxiety 01/09/19 19:42 01/13/19 19:41 01/11/19 10:32 Lorazepam (Ativan 2mg/ml 1ml) 2 mg Q2H PRN IV SEIZURE 01/09/19 19:42 01/15/19 19:41 Morphine Sulfate (Morphine Sulfate) 1 mg Q4H PRN IVP severe pain 01/09/19 19:43 01/13/19 19:42 01/11/19 08:24 Ondansetron HCl (Zofran) 4 mg Q6H PRN IVP Nausea & Vomiting 01/09/19 20:30 02/05/19 14:24 01/10/19 22:55 Polyethylene Glycol (Miralax) 17 gm HSPRN PRN ORAL Constipation 01/09/19 19:43 02/08/19 19:42 Quetiapine Fumarate (SEROquel) 200 mg BEDTIME ORAL 01/09/19 21:00 02/05/19 20:59 01/10/19 22:55 Zolpidem Tartrate (Ambien) 5 mg HSPRN PRN ORAL Insomnia 01/09/19 19:43 01/16/19 19:42 Lashanda Pham MD Jan 11, 2019 12:28
--- NOTE | 2019-01-11 14:16 | General Progress Note ---
Assessment/Plan Problem List: (1) ACS (acute coronary syndrome) ICD Codes: I24.9 - Acute ischemic heart disease, unspecified SNOMED: 188069941 (2) Diabetes mellitus ICD Codes: E11.9 - Diabetes mellitus SNOMED: 04435486 (3) COPD (chronic obstructive pulmonary disease) ICD Codes: J44.9 - Chronic obstructive pulmonary disease, unspecified SNOMED: 53431013 (4) CVA (cerebral vascular accident) ICD Codes: I63.9 - Cerebral infarction, unspecified SNOMED: 910268470 (5) Uncontrolled seizures ICD Codes: R56.9 - Unspecified convulsions SNOMED: 94219231 Status: stable, progressing Assessment/Plan seizure control pt diet pain control cardio f/u bp bs control cbc bmp am dc plan if clear Subjective Constitutional: Reports: weakness Allergies: Coded Allergies: HALOPERIDOL (Verified Allergy, Unknown, 11/30/18) All Systems: reviewed and negative except above Subjective had seizure yesterday Objective Last 24 Hour Vital Signs Date Time Temp Pulse Resp B/P (MAP) Pulse Ox O2 Delivery O2 Flow Rate FiO2 01/11/19 13:29 97.6 01/11/19 08:00 Venturi Mask 01/11/19 04:11 Venturi Mask 01/11/19 04:02 97.6 70 19 113/62 (79) 97 01/11/19 00:00 Venturi Mask 01/10/19 21:00 Venturi Mask 01/10/19 20:57 63 20 Room Air 21 01/10/19 20:00 98.5 75 19 109/67 (81) 96 01/10/19 16:00 Room Air 01/10/19 15:24 98.3 108 20 117/80 (92) Intake and Output 01/10/19 01/11/19 19:00 07:00 Intake Total 2325 ml Balance 2325 ml Intake Oral 2325 ml # Voids 12 8 # Bowel Movements 4 Laboratory Tests 01/11/19 11:10: White Blood Count 7.4, Red Blood Count 4.91, Hemoglobin 14.6, Hematocrit 42.6, Mean Corpuscular Volume 87, Mean Corpuscular Hemoglobin 29.7, Mean Corpuscular Hemoglobin Concent 34.2, Red Cell Distribution Width 12.1, Platelet Count 163, Mean Platelet Volume 7.7, Neutrophils (%) (Auto) 52.5, Lymphocytes (%) (Auto) 37.7, Monocytes (%) (Auto) 6.1, Eosinophils (%) (Auto) 2.8, Basophils (%) (Auto ) 1.0, Sodium Level 136, Potassium Level 4.1, Chloride Level 100, Carbon Dioxide Level 26, Anion Gap 10, Blood Urea Nitrogen 17, Creatinine 0.8, Estimat Glomerular Filtration Rate > 60, Glucose Level 184H, Calcium Level 9.0 Height (Feet): 5 Height (Inches): 11.00 Weight (Pounds): 261 General Appearance: lethargic EENT: normal ENT inspection Neck: normal alignment Cardiovascular: normal peripheral pulses, normal rate, regular rhythm Respiratory/Chest: chest wall non-tender, lungs clear, normal breath sounds Abdomen: normal bowel sounds, non tender, soft Extremities: normal inspection Edema: no edema noted Arm (L), no edema noted Arm (R), no edema noted Leg (L), no edema noted Leg (R), no edema noted Pedal (L), no edema noted Pedal (R), no edema noted Generalized Neurologic: responsive, motor weakness Skin: normal pigmentation, warm/dry Aniceto Sepulveda DO Jan 11, 2019 14:16
--- NOTE | 2019-01-11 15:49 | NUR ---
Social Service Note SW familiar with patient from multiple admissions. Upon previous discharge patient was placed at [facility]. While out on pass patient was detained and held by [employer]. Since patient didn't communicate with facility and didn't return, patient was deemed an AMA. [facility] will not accept patient back. Patient is chronically homeless. Patient doesn't have medicare days or a skilled need to justify SNF placement. Patient is an over utilizer of the healthcare system for housing. Patient states he has exhausted his income for this month. SW addressed board and care/independent living. Patient understands he requires to use his income for housing. Patient referred to [facility] [phone] (p), (f). Referral received and being reviewed. Will follow up.
--- NOTE | 2019-01-11 17:45 | Progress Note ---
DATE: 01/11/2019 SUBJECTIVE: This is a male patient, who is 38-year-old. He has acute coronary syndrome, diabetes, COPD, and seizure disorder. He has increased mood lability, worsened by stress of his medical illness. That is why his attending has requested daily psychiatric consultation for this patient. He continues to have mood lability, agitation, and irritability. MENTAL STATUS EXAMINATION: This is a 38-year-old male. Appearance is disheveled. Attitude, irritable and agitated. Affect, guarded and restricted. Intellect, poor. Mood, depressed and anxious. Motor activity, psychomotor agitation. Attention is poor. Orientation x2. Speech is pressured. Thought process, disorganized and illogical. Insight and judgment is poor. DIAGNOSIS: Schizoaffective, bipolar type. PLAN: Treat him with Seroquel 200 mg nightly, Depakote 500 mg q.12 h., Xanax 0.5 mg every six hours p.r.n. anxiety and agitation, and Lexapro 10 mg daily. Provided him with 20 minutes of cognitive behavioral therapy to help him identify his automatic negative thoughts and help him convert those negative thoughts to more positive thoughts to reduce depression, anxiety, and suicidality. 20 minutes of cognitive behavioral therapy also provided to help him have a more adaptive behavior pattern. Chart was reviewed. Discussed with staff. Charmaine Victor M.D. DR: HARIS JOB#: [id number] CC:
--- NOTE | 2019-01-11 18:01 | NUR ---
CASE MANAGEMENT: REVIEW 01/11/2019 SI: ACUTE CORONARY SYNDROME. HYPERGLYCEMIA T 97.6 HR 70 RR 19 B/P 113/62 SATS 97% ON VENTURI MASK GLU 184 IS: LEVEMIR SUBQ Q12H ASA PO QD LEXAPRO PO QD NOVOLOG SUBQ TIAC DEPAKOTE PO Q12H : MED/SURG STATUS
--- NOTE | 2019-01-11 18:39 | NUR ---
NURSE NOTES: Received patient from Makenzie JOSEPH, patient is up in bed, no distress noted, bed is locked and in lowest position, call light within reach, will continue to monitor. Addendum: 01/11/19 at 1840 by ROBERT MOORE RN [id number]
--- NOTE | 2019-01-11 19:17 | NUR ---
HAND-OFF: Report given to Sabrina JOSEPH.
--- NOTE | 2019-01-11 19:57 | NUR ---
NURSE NOTES: Patient ambulating in hallway, no s/s distress noted. Able to make needs known. Siderails padded, seizure precaution maintained. Call light within reach.
[2019-01-11 20:00] VITALS: BP 115/61
[2019-01-11] MEDS: QUEtiapine 200mg tab ORAL SCH (21:19)
--- NOTE | 2019-01-11 23:15 | Electroencephalogram ---
DATE OF PROCEDURE: 01/08/2019 REQUESTING PHYSICIANS: Hansel Maguire M.D. & Aniceto Sepulveda D.O. READING PHYSICIAN: Dago Brady M.D. PROCEDURE PERFORMED: Electroencephalogram. HISTORY: This EEG was performed on a 38-year-old gentleman with a history of seizures and a craniotomy in the past. The purpose of this EEG was to evaluate the patient for the degree and type of cerebral dysfunction. TECHNICAL NOTE: This EEG was performed on a [email or web address] with electrodes placed on the scalp according to the International 10-20 system. [id number] and [id number] montages were used. The EEG was technically satisfactory and was performed in the awake, drowsy, and sleep states. OBSERVATIONS: In the best awake state, the background activity consisted of 7.5-8 Hz posterior rhythmic activity. Drowsiness was characterized by irregular 5-6 hertz theta activity. Stage II sleep was characterized by further slowing of the background in the delta and theta range, the presence of vertex waves, and 12-14 Hz sleep spindles. No focal abnormalities or epileptiform discharges were seen. IMPRESSION: This is an abnormal EEG characterized by slowing of the background in the 7.5-8 Hz range in the best awake state. COMMENT: This study is consistent with an encephalopathy of a mild degree. Clinical correlation is recommended. Dago Brady M.D., M.S.P.H. DR: MARILEE/BK JOB#: [id number] [facility]ENTER[facility]anae
--- NOTE | 2019-01-11 23:52 | Cardiology Progress Note ---
Assessment/Plan Assessment/Plan 1. Atypical/noncardiac chest pain, nonischemic nuclear stress test in January 2018 , normal LV systolic function with LVEF of about 60% to 65%. A 12-lead electrocardiogram this admission does not show any ischemic features. 2. Hx of Hypertension, diet only. 3. Diabetes mellitus, continue ASA and atorvastatin. 4. CVA with left hemiparesis, continue ASA, will add statins. Subjective Subjective No cardiac events reported. Objective Last 24 Hour Vital Signs Date Time Temp Pulse Resp B/P (MAP) Pulse Ox O2 Delivery O2 Flow Rate FiO2 01/11/19 21:38 103 20 Room Air 21 01/11/19 21:00 Room Air 01/11/19 20:00 98.2 61 20 115/61 (79) 96 01/11/19 17:43 97.6 01/11/19 08:00 Venturi Mask 01/11/19 04:11 Venturi Mask 01/11/19 04:02 97.6 70 19 113/62 (79) 97 01/11/19 00:00 Venturi Mask Intake and Output 01/10/19 01/11/19 19:00 07:00 Intake Total 2325 ml Balance 2325 ml Intake Oral 2325 ml # Voids 12 8 # Bowel Movements 4 Laboratory Tests Test 01/11/19 11:10 White Blood Count 7.4 K/UL (4.8-10.8) Red Blood Count 4.91 M/UL (4.70-6.10) Hemoglobin 14.6 G/DL (14.2-18.0) Hematocrit 42.6 % (42.0-52.0) Mean Corpuscular Volume 87 FL (80-99) Mean Corpuscular Hemoglobin 29.7 PG (27.0-31.0) Mean Corpuscular Hemoglobin Concent 34.2 G/DL (32.0-36.0) Red Cell Distribution Width 12.1 % (11.6-14.8) Platelet Count 163 K/UL (150-450) Mean Platelet Volume 7.7 FL (6.5-10.1) Neutrophils (%) (Auto) 52.5 % (45.0-75.0) Lymphocytes (%) (Auto) 37.7 % (20.0-45.0) Monocytes (%) (Auto) 6.1 % (1.0-10.0) Eosinophils (%) (Auto) 2.8 % (0.0-3.0) Basophils (%) (Auto) 1.0 % (0.0-2.0) Sodium Level 136 MMOL/L (136-145) Potassium Level 4.1 MMOL/L (3.5-5.1) Chloride Level 100 MMOL/L (98-107) Carbon Dioxide Level 26 MMOL/L (21-32) Anion Gap 10 mmol/L (5-15) Blood Urea Nitrogen 17 mg/dL (7-18) Creatinine 0.8 MG/DL (0.55-1.30) Estimat Glomerular Filtration Rate > 60 mL/min (>60) Glucose Level 184 MG/DL (74-106) H Calcium Level 9.0 MG/DL (8.5-10.1) Objective HEENT: Atraumatic and normocephalic. Anicteric. Pupils are equal, round, and reactive to light and accommodation. Extraocular muscles intact. NECK: JVP less than 5 cm. No carotid bruit. Carotid upstroke is 2+ bilaterally. CARDIOVASCULAR: Normal S1, S2. Regular rate and rhythm. Tachycardic. No murmurs, gallops, or rubs. LUNGS: Clear to auscultation bilaterally. ABDOMEN: Soft, nontender, and nondistended. No hepatosplenomegaly. Positive bowel sounds. EXTREMITIES: No evidence of edema, clubbing, or cyanosis. Hayes Mae MD Jan 11, 2019 23:52
[2019-01-12] MEDS: Morphine Sulfate 2mg/ml Inj(IV/IM USE ONLY) IVP PRN ×6 (01:57→23:54)
[2019-01-12 04:00] VITALS: BP 110/60
--- NOTE | 2019-01-12 06:04 | General Progress Note ---
Assessment/Plan Problem List: (1) COPD (chronic obstructive pulmonary disease) ICD Codes: J44.9 - Chronic obstructive pulmonary disease, unspecified SNOMED: 92859754 (2) Diabetes mellitus ICD Codes: E11.9 - Diabetes mellitus SNOMED: 95313885 Assessment/Plan continue Levemir 18 units bid continuu Novolog 7 units ac tid continue NISS ac / hs Subjective Allergies: Coded Allergies: HALOPERIDOL (Verified Allergy, Unknown, 11/30/18) All Systems: reviewed and negative except above Subjective events noted Item Value Date Time Bedside Blood Glucose 148 mg/dl H 01/11/19 2120 Bedside Blood Glucose 208 mg/dl H 01/11/19 1658 Bedside Blood Glucose 159 mg/dl H 01/11/19 1142 Bedside Blood Glucose 174 mg/dl H 01/11/19 0831 Bedside Blood Glucose 174 mg/dl H 01/11/19 0559 Objective Last 24 Hour Vital Signs Date Time Temp Pulse Resp B/P (MAP) Pulse Ox O2 Delivery O2 Flow Rate FiO2 01/12/19 04:00 98.4 65 18 110/60 (77) 97 01/11/19 21:38 103 20 Room Air 21 01/11/19 21:00 Room Air 01/11/19 20:00 98.2 61 20 115/61 (79) 96 01/11/19 17:43 97.6 01/11/19 08:00 Venturi Mask Intake and Output 01/11/19 01/12/19 19:00 07:00 Intake Total 1080 ml Balance 1080 ml Intake Oral 1080 ml Laboratory Tests 01/11/19 11:10: White Blood Count 7.4, Red Blood Count 4.91, Hemoglobin 14.6, Hematocrit 42.6, Mean Corpuscular Volume 87, Mean Corpuscular Hemoglobin 29.7, Mean Corpuscular Hemoglobin Concent 34.2, Red Cell Distribution Width 12.1, Platelet Count 163, Mean Platelet Volume 7.7, Neutrophils (%) (Auto) 52.5, Lymphocytes (%) (Auto) 37.7, Monocytes (%) (Auto) 6.1, Eosinophils (%) (Auto) 2.8, Basophils (%) (Auto ) 1.0, Sodium Level 136, Potassium Level 4.1, Chloride Level 100, Carbon Dioxide Level 26, Anion Gap 10, Blood Urea Nitrogen 17, Creatinine 0.8, Estimat Glomerular Filtration Rate > 60, Glucose Level 184H, Calcium Level 9.0 Height (Feet): 5 Height (Inches): 11.00 Weight (Pounds): 261 General Appearance: no apparent distress Neck: normal alignment Cardiovascular: normal rate Respiratory/Chest: normal breath sounds Abdomen: normal bowel sounds Objective Current Medications Medications (Trade) Dose Ordered Sig/Sofia Route PRN Reason Start Time Stop Time Status Last Admin Dose Admin Acetaminophen (Tylenol) 650 mg Q4H PRN ORAL fever 01/09/19 19:40 02/05/19 19:39 Acetaminophen/ Hydrocodone Bitart ([place] 10/325) 1 tab Q6H PRN ORAL moderate pain 01/09/19 19:42 01/16/19 19:41 Al Hydroxide/Mg Hydroxide (Mylanta II) 30 ml Q6H PRN ORAL dyspepsia 01/09/19 19:41 02/05/19 19:40 Alprazolam (Xanax) 0.5 mg Q6H PRN ORAL For Anxiety 01/09/19 19:41 01/13/19 19:40 Aspirin (ASA) 81 mg DAILY ORAL 01/10/19 09:00 02/06/19 08:59 01/11/19 08:23 Clonidine HCl (Catapres Tab) 0.1 mg Q4H PRN ORAL For High Blood Pressure 01/09/19 19:41 02/05/19 19:40 Dextrose (Dextrose 50%) 25 ml Q30M PRN IV Hypoglycemia 01/09/19 20:00 02/05/19 17:59 Dextrose (Dextrose 50%) 50 ml Q30M PRN IV Hypoglycemia 01/09/19 20:00 02/05/19 17:59 Divalproex Sodium (Depakote) 500 mg Q12HR ORAL 01/09/19 21:00 02/05/19 20:59 01/11/19 21:20 Escitalopram Oxalate (Lexapro) 10 mg DAILY ORAL 01/10/19 09:00 02/06/19 08:59 01/11/19 08:23 Heparin Sodium (Porcine) (Heparin 5000 units/ml) 5,000 units EVERY 12 HOURS SUBQ 01/09/19 21:00 02/05/19 20:59 Insulin Aspart (NovoLOG) BEFORE MEALS AND HS SUBQ 01/09/19 21:00 02/05/19 20:59 01/11/19 21:20 Insulin Aspart (NovoLOG) 7 units NOVOTIAC SUBQ 01/10/19 06:30 02/06/19 11:49 01/11/19 16:58 Insulin Detemir (Levemir) 18 units EVERY 12 HOURS SUBQ 01/09/19 21:00 02/05/19 22:29 01/11/19 21:19 Lorazepam (Ativan 2mg/ml 1ml) 0.5 mg Q4H PRN IV For Anxiety 01/09/19 19:42 01/13/19 19:41 01/11/19 10:32 Lorazepam (Ativan 2mg/ml 1ml) 2 mg Q2H PRN IV SEIZURE 01/09/19 19:42 01/15/19 19:41 Morphine Sulfate (Morphine Sulfate) 1 mg Q4H PRN IVP severe pain 01/09/19 19:43 01/13/19 19:42 01/12/19 01:57 Ondansetron HCl (Zofran) 4 mg Q6H PRN IVP Nausea & Vomiting 01/09/19 20:30 02/05/19 14:24 01/11/19 14:41 Polyethylene Glycol (Miralax) 17 gm HSPRN PRN ORAL Constipation 01/09/19 19:43 02/08/19 19:42 Quetiapine Fumarate (SEROquel) 200 mg BEDTIME ORAL 01/09/19 21:00 02/05/19 20:59 01/11/19 21:19 Zolpidem Tartrate (Ambien) 5 mg HSPRN PRN ORAL Insomnia 01/09/19 19:43 01/16/19 19:42 Tavo Malhotra MD Jan 12, 2019 06:04
[2019-01-12] MEDS: NovoLOG Insulin Flexpen SUBQ SCH ×7 (06:16→20:40)
--- NOTE | 2019-01-12 07:20 | NUR ---
HAND-OFF: Report given to Srikanth JOSEPH.
[2019-01-12 08:00] VITALS: BP 125/72
--- NOTE | 2019-01-12 08:38 | General Progress Note ---
Assessment/Plan Assessment/Plan (1) Chiari malformation type II (2) Degenerative disc disease, cervical (3) Lumbar degenerative disc disease (4) Arthritis, lumbar spine (5) Peripheral neuropathy (6) Hydrocephalus (7) Diabetes mellitus Pt will be continued on the Morphine and [place]. Pt was d/w Dr. Napier and he concurred. Subjective Date patient seen: Jan 12, 2019 Time patient seen: 07:15 - am Allergies: Coded Allergies: HALOPERIDOL (Verified Allergy, Unknown, 11/30/18) Subjective Constitutional: Reports: weakness, Denies: chills, diaphoresis, fever, malaise , no symptoms, other HEENT: Denies: blurred vision, double vision, ear discharge, ear pain, eye pain , mouth pain, mouth swelling, no symptoms, nose congestion, nose pain, other, tearing, throat pain, throat swelling Cardiovascular: Denies: chest pain, edema, irregular heart rate, lightheadedness, no symptoms, other, palpitations, syncope Respiratory: Denies: SOB at rest, SOB with excertion, cough, no symptoms, orthopnea, other, shortness of breath, sputum, stridor, wheezing Gastrointestinal/Abdominal: Denies: abdomen distended, abdominal pain, black stools, blood in stool, constipated, diarrhea, difficulty swallowing, nausea, no symptoms, other, poor appetite, poor fluid intake, rectal bleeding, tarry stools, vomiting Genitourinary: Denies: burning, discharge, flank pain, frequency, hematuria, incontinence, no symptoms, other, pain, urgency Neurologic/Psychiatric: Reports: headache, numbness, tingling, weakness, Denies : anxiety, depressed, emotional problems, no symptoms, other, paresthesia, pre- existing deficit, seizure, tremors Endocrine: Denies: excessive sweating, flushing, increased hunger, increased thirst, increased urine, intolerance to cold, intolerance to heat, no symptoms, other, unexplained weight gain, unexplained weight loss Hematologic/Lymphatic: Denies: anemia, easy bleeding, easy bruising, no symptoms, other Subjective Patient is standing walking around with no signs of pain His pain has been tolerated on the [place] and Morphine. No new complaints at this time. Objective Last 24 Hour Vital Signs Date Time Temp Pulse Resp B/P (MAP) Pulse Ox O2 Delivery O2 Flow Rate FiO2 01/12/19 07:45 79 20 Room Air 21 01/12/19 04:00 98.4 65 18 110/60 (77) 97 01/11/19 21:38 103 20 Room Air 21 01/11/19 21:00 Room Air 01/11/19 20:00 98.2 61 20 115/61 (79) 96 01/11/19 17:43 97.6 Intake and Output 01/11/19 01/12/19 18:59 06:59 Intake Total 1080 ml Balance 1080 ml Intake Oral 1080 ml Laboratory Tests 01/11/19 11:10: White Blood Count 7.4, Red Blood Count 4.91, Hemoglobin 14.6, Hematocrit 42.6, Mean Corpuscular Volume 87, Mean Corpuscular Hemoglobin 29.7, Mean Corpuscular Hemoglobin Concent 34.2, Red Cell Distribution Width 12.1, Platelet Count 163, Mean Platelet Volume 7.7, Neutrophils (%) (Auto) 52.5, Lymphocytes (%) (Auto) 37.7, Monocytes (%) (Auto) 6.1, Eosinophils (%) (Auto) 2.8, Basophils (%) (Auto ) 1.0, Sodium Level 136, Potassium Level 4.1, Chloride Level 100, Carbon Dioxide Level 26, Anion Gap 10, Blood Urea Nitrogen 17, Creatinine 0.8, Estimat Glomerular Filtration Rate > 60, Glucose Level 184H, Calcium Level 9.0 Height (Feet): 5 Height (Inches): 11.00 Weight (Pounds): 264 Objective General Appearance: no apparent distress, alert EENT: PERRL/EOMI, normal ENT inspection Neck: normal alignment, supple Cardiovascular: normal rate, regular rhythm Respiratory/Chest: lungs clear, normal breath sounds Abdomen: non tender, soft Extremities: non-tender Edema: trace edema Neurologic: alert, responsive Skin: warm/dry Joao Munoz Jan 12, 2019 08:38
[2019-01-12] MEDS: Aspirin Baby 81mg ORAL SCH (09:01)
[2019-01-12] MEDS: Depakote 500mg tab ORAL SCH ×2 (09:01→20:37)
[2019-01-12] MEDS: HYDROcodone/Acetamin 10/325 tab ORAL PRN ×2 (09:02→17:01)
[2019-01-12 09:15] LABS: BASOPHILS % (AUTO) 0.9 % (0.0-2.0); EOSINOPHILS % (AUTO) 2.9 % (0.0-3.0); HEMATOCRIT 39.7 % (42.0-52.0); HEMOGLOBIN 13.5 G/DL (14.2-18.0); LYMPHOCYTES % (AUTO) 36.4 % (20.0-45.0); MEAN CORPUSCULAR VOLUME 87 FL (80-99); MONOCYTES % (AUTO) 9.1 % (1.0-10.0); NEUTROPHILS % (AUTO) 50.8 % (45.0-75.0); PLATELET COUNT 139 K/UL (150-450); RED BLOOD COUNT 4.57 M/UL (4.70-6.10); RED CELL DISTRIBUTION WIDTH 12.2 % (11.6-14.8); WHITE BLOOD COUNT 7.8 K/UL (4.8-10.8)
[2019-01-12] MEDS: Heparin 5000 units/ml inj SUBQ SCH ×2 (09:31→20:41)
[2019-01-12] MEDS: Levemir Flexpen SUBQ SCH ×2 (09:36→20:41)
[2019-01-12 09:39] LABS: ANION GAP 10 mmol/L (5-15); BLOOD UREA NITROGEN 19 mg/dL (7-18); CALCIUM 9.2 MG/DL (8.5-10.1); CARBON DIOXIDE 26 MMOL/L (21-32); CHLORIDE 101 MMOL/L (98-107); CREATININE 0.9 MG/DL (0.55-1.30); SODIUM 137 MMOL/L (136-145)
--- NOTE | 2019-01-12 10:00 | NUR ---
NURSE NOTES: PT AXOX4, ARGUES WITH NURSE. STATES HE CAN GET NORCO 10/325 BETWEEN MORPHINE 1MG DOSES. RN EXPLAINED TO PT, THE NORCO ORDER IS NOT FOR BREAKTHROUGH PAIN. RN CLARIFIED WITH TREE SINGLETON AND APPROVED CHANGING NORCO TO BREAKTHROUGH PAIN PRN. PT IN NO APPARENT DISTRESS AT THIS TIME.
[2019-01-12 12:00] VITALS: BP 114/63
--- NOTE | 2019-01-12 12:46 | Pulmonology Progress Note ---
Assessment/Plan Problems: (1) Costochondritis (2) COPD (chronic obstructive pulmonary disease) (3) ACS (acute coronary syndrome) (4) Diabetes mellitus (5) Noncompliance Assessment/Plan no new complains symptomatic treatment seizures or pseudo seizures better controlled sliding scale diabetic diet pain management doing better dc planning. Subjective ROS Limited/Unobtainable: No Constitutional: Reports: no symptoms HEENT: Repors: no symptoms Allergies: Coded Allergies: HALOPERIDOL (Verified Allergy, Unknown, 11/30/18) Objective Last 24 Hour Vital Signs Date Time Temp Pulse Resp B/P (MAP) Pulse Ox O2 Delivery O2 Flow Rate FiO2 01/12/19 08:00 93 22 125/72 (89) 95 93 01/12/19 07:45 79 20 Room Air 21 01/12/19 04:00 98.4 65 18 110/60 (77) 97 01/11/19 21:38 103 20 Room Air 21 01/11/19 21:00 Room Air 01/11/19 20:00 98.2 61 20 115/61 (79) 96 01/11/19 17:43 97.6 Intake and Output 01/11/19 01/12/19 18:59 06:59 Intake Total 1080 ml Balance 1080 ml Intake Oral 1080 ml Objective General Appearance: WD/WN HEENT: normocephalic, atraumatic Respiratory/Chest: chest wall non-tender, lungs clear Cardiovascular: normal peripheral pulses, normal rate Abdomen: normal bowel sounds, soft, non tender Genitourinary: normal external genitalia Extremities: no clubbing Skin: no rash, no lesions, no ulcers Neurologic/Psychiatric: dynamics ax consultant II-XII grossly normal, no motor/sensory deficits, abnormal gait Lymphatic: no neck adenopathy Musculoskeletal: normal muscle bulk Laboratory Tests 01/12/19 08:55: White Blood Count 7.8, Red Blood Count 4.57L, Hemoglobin 13.5L, Hematocrit 39.7L , Mean Corpuscular Volume 87, Mean Corpuscular Hemoglobin 29.6, Mean Corpuscular Hemoglobin Concent 34.1, Red Cell Distribution Width 12.2, Platelet Count 139L, Mean Platelet Volume 8.0, Neutrophils (%) (Auto) 50.8, Lymphocytes ( %) (Auto) 36.4, Monocytes (%) (Auto) 9.1, Eosinophils (%) (Auto) 2.9, Basophils (%) (Auto) 0.9, Sodium Level 137, Potassium Level 4.0, Chloride Level 101, Carbon Dioxide Level 26, Anion Gap 10, Blood Urea Nitrogen 19H, Creatinine 0.9, Estimat Glomerular Filtration Rate > 60, Glucose Level 209H, Calcium Level 9.2 Current Medications Medications (Trade) Dose Ordered Sig/Sofia Route PRN Reason Start Time Stop Time Status Last Admin Dose Admin Acetaminophen (Tylenol) 650 mg Q4H PRN ORAL fever 01/09/19 19:40 02/05/19 19:39 Acetaminophen/ Hydrocodone Bitart ([place] 10/325) 1 tab Q6H PRN ORAL moderate breakthrough pain 01/12/19 09:00 01/16/19 08:59 01/12/19 09:02 Al Hydroxide/Mg Hydroxide (Mylanta II) 30 ml Q6H PRN ORAL dyspepsia 01/09/19 19:41 02/05/19 19:40 Alprazolam (Xanax) 0.5 mg Q6H PRN ORAL For Anxiety 01/09/19 19:41 01/13/19 19:40 Aspirin (ASA) 81 mg DAILY ORAL 01/10/19 09:00 02/06/19 08:59 01/12/19 09:01 Clonidine HCl (Catapres Tab) 0.1 mg Q4H PRN ORAL For High Blood Pressure 01/09/19 19:41 02/05/19 19:40 Dextrose (Dextrose 50%) 25 ml Q30M PRN IV Hypoglycemia 01/09/19 20:00 02/05/19 17:59 Dextrose (Dextrose 50%) 50 ml Q30M PRN IV Hypoglycemia 01/09/19 20:00 02/05/19 17:59 Divalproex Sodium (Depakote) 500 mg Q12HR ORAL 01/09/19 21:00 02/05/19 20:59 01/12/19 09:01 Escitalopram Oxalate (Lexapro) 10 mg DAILY ORAL 01/10/19 09:00 02/06/19 08:59 01/12/19 09:01 Heparin Sodium (Porcine) (Heparin 5000 units/ml) 5,000 units EVERY 12 HOURS SUBQ 01/09/19 21:00 02/05/19 20:59 Insulin Aspart (NovoLOG) BEFORE MEALS AND HS SUBQ 01/09/19 21:00 02/05/19 20:59 01/12/19 12:13 Insulin Aspart (NovoLOG) 7 units NOVOTIAC SUBQ 01/10/19 06:30 02/06/19 11:49 01/12/19 12:12 Insulin Detemir (Levemir) 18 units EVERY 12 HOURS SUBQ 01/09/19 21:00 02/05/19 22:29 01/12/19 09:36 Lorazepam (Ativan 2mg/ml 1ml) 0.5 mg Q4H PRN IV For Anxiety 01/09/19 19:42 01/13/19 19:41 01/11/19 10:32 Lorazepam (Ativan 2mg/ml 1ml) 2 mg Q2H PRN IV SEIZURE 01/09/19 19:42 01/15/19 19:41 Morphine Sulfate (Morphine Sulfate) 1 mg Q4H PRN IVP Severe Pain (Pain Scale 7-10) 01/12/19 10:15 01/19/19 10:14 01/12/19 10:18 Ondansetron HCl (Zofran) 4 mg Q6H PRN IVP Nausea & Vomiting 01/09/19 20:30 02/05/19 14:24 01/12/19 10:18 Polyethylene Glycol (Miralax) 17 gm HSPRN PRN ORAL Constipation 01/09/19 19:43 02/08/19 19:42 Quetiapine Fumarate (SEROquel) 200 mg BEDTIME ORAL 01/09/19 21:00 02/05/19 20:59 01/11/19 21:19 Zolpidem Tartrate (Ambien) 5 mg HSPRN PRN ORAL Insomnia 01/09/19 19:43 01/16/19 19:42 Lashanda Pham MD Jan 12, 2019 12:46
[2019-01-12] MEDS ORDERED: LEVEMIR FL100 UNIT/1 SUBQ (13:14)
--- NOTE | 2019-01-12 14:32 | Consultation ---
History of Present Illness General Date patient seen: Jan 12, 2019 Chief Complaint: Chest Pain Present Illness HPI 38 y/o M with hx of syncopal episodes, neuropathy, COPD, CVA w/ left side weakness, Dm2, CAD, lumbar spine surgery, obesity, bipolar disorder, seizure disorder, HTN presents to ED on 01/06 with chest pain and seizures. Patient had a scalp scab resultant from injury after seizure. NO signs of infection. It is itchy Denied HICKEY, f/c, SOB, n/v/d upon admission Allergies: Coded Allergies: HALOPERIDOL (Verified Allergy, Unknown, 11/30/18) Medication History Scheduled Aspirin* (Aspirin*), 81 MG ORAL DAILY, (Reported) Divalproex Sodium* (Depakote*), 500 MG PO Q12HR, (Reported) Escitalopram Oxalate* (Lexapro*), 10 MG ORAL DAILY, (Reported) Insulin Aspart (Novolog), 15 UNIT SQ BEFORE MEALS, (Reported) Insulin Detemir (Levemir Flexpen), 18 UNITS SUBQ EVERY 12 HOURS Insulin Glargine (Lantus), 30 UNITS SUBQ BEDTIME, (Reported) Quetiapine Fumarate* (Seroquel*), 200 MG ORAL BEDTIME, (Reported) Scheduled PRN Alprazolam* (Xanax*), 0.5 MG PO Q6HR PRN for For Anxiety, (Reported) Clonidine Hcl* (Catapres*), 0.1 MG ORAL Q4HR PRN for For High Blood Pressure, ( Reported) Insulin Aspart (Novolog), 0 SQ BEFORE MEALS PRN for Sliding Scale, (Reported) Ipratropium/Albuterol Sulfate (DuoNeb 0.5-3(2.5)mg/3ml), 3 ML HHN Q4HR PRN for Shortness of Breath, (Reported) Patient History Healthcare decision maker Resuscitation status Advanced Directive on File Patient History Narrative Pmhx: as above Shx: The patient has history of marijuana use, alcohol use, and smoking cigarettes. He smokes about a pack a day. Fhx non contributory Review of Systems All Other Systems: negative except mentioned in HPI Physical Exam Physical Exam Narrative GENERAL: Calm in bed, oriented x3, and in no acute distress. CARDIOVASCULAR: No murmurs. LUNGS: Distant and clear. ABDOMEN: Bowel sounds positive. Nontender. Nondistended. EXTREMITIES: No cyanosis, clubbing, or edema. NEUROLOGIC: The patient moves all extremities, slightly weak Last 24 Hour Vital Signs Date Time Temp Pulse Resp B/P (MAP) Pulse Ox O2 Delivery O2 Flow Rate FiO2 01/12/19 12:00 97.9 74 16 114/63 (80) 98 01/12/19 08:00 93 22 125/72 (89) 95 93 01/12/19 07:45 79 20 Room Air 21 01/12/19 04:00 98.4 65 18 110/60 (77) 97 01/11/19 21:38 103 20 Room Air 21 01/11/19 21:00 Room Air 01/11/19 20:00 98.2 61 20 115/61 (79) 96 01/11/19 17:43 97.6 Intake and Output 01/11/19 01/12/19 18:59 06:59 Intake Total 1080 ml Balance 1080 ml Intake Oral 1080 ml Laboratory Tests Test 01/12/19 08:55 White Blood Count 7.8 K/UL (4.8-10.8) Red Blood Count 4.57 M/UL (4.70-6.10) L Hemoglobin 13.5 G/DL (14.2-18.0) L Hematocrit 39.7 % (42.0-52.0) L Mean Corpuscular Volume 87 FL (80-99) Mean Corpuscular Hemoglobin 29.6 PG (27.0-31.0) Mean Corpuscular Hemoglobin Concent 34.1 G/DL (32.0-36.0) Red Cell Distribution Width 12.2 % (11.6-14.8) Platelet Count 139 K/UL (150-450) L Mean Platelet Volume 8.0 FL (6.5-10.1) Neutrophils (%) (Auto) 50.8 % (45.0-75.0) Lymphocytes (%) (Auto) 36.4 % (20.0-45.0) Monocytes (%) (Auto) 9.1 % (1.0-10.0) Eosinophils (%) (Auto) 2.9 % (0.0-3.0) Basophils (%) (Auto) 0.9 % (0.0-2.0) Sodium Level 137 MMOL/L (136-145) Potassium Level 4.0 MMOL/L (3.5-5.1) Chloride Level 101 MMOL/L (98-107) Carbon Dioxide Level 26 MMOL/L (21-32) Anion Gap 10 mmol/L (5-15) Blood Urea Nitrogen 19 mg/dL (7-18) H Creatinine 0.9 MG/DL (0.55-1.30) Estimat Glomerular Filtration Rate > 60 mL/min (>60) Glucose Level 209 MG/DL (74-106) H Calcium Level 9.2 MG/DL (8.5-10.1) Height (Feet): 5 Height (Inches): 11.00 Weight (Pounds): 264 Medications Current Medications Medications (Trade) Dose Ordered Sig/Sofia Route PRN Reason Start Time Stop Time Status Last Admin Dose Admin Acetaminophen (Tylenol) 650 mg Q4H PRN ORAL fever 01/09/19 19:40 02/05/19 19:39 Acetaminophen/ Hydrocodone Bitart ([place] 10/325) 1 tab Q6H PRN ORAL moderate breakthrough pain 01/12/19 09:00 01/16/19 08:59 01/12/19 09:02 Al Hydroxide/Mg Hydroxide (Mylanta II) 30 ml Q6H PRN ORAL dyspepsia 01/09/19 19:41 02/05/19 19:40 Alprazolam (Xanax) 0.5 mg Q6H PRN ORAL For Anxiety 01/09/19 19:41 01/13/19 19:40 Aspirin (ASA) 81 mg DAILY ORAL 01/10/19 09:00 02/06/19 08:59 01/12/19 09:01 Clonidine HCl (Catapres Tab) 0.1 mg Q4H PRN ORAL For High Blood Pressure 01/09/19 19:41 02/05/19 19:40 Dextrose (Dextrose 50%) 25 ml Q30M PRN IV Hypoglycemia 01/09/19 20:00 02/05/19 17:59 Dextrose (Dextrose 50%) 50 ml Q30M PRN IV Hypoglycemia 01/09/19 20:00 02/05/19 17:59 Divalproex Sodium (Depakote) 500 mg Q12HR ORAL 01/09/19 21:00 02/05/19 20:59 01/12/19 09:01 Escitalopram Oxalate (Lexapro) 10 mg DAILY ORAL 01/10/19 09:00 02/06/19 08:59 01/12/19 09:01 Heparin Sodium (Porcine) (Heparin 5000 units/ml) 5,000 units EVERY 12 HOURS SUBQ 01/09/19 21:00 02/05/19 20:59 Insulin Aspart (NovoLOG) BEFORE MEALS AND HS SUBQ 01/09/19 21:00 02/05/19 20:59 01/12/19 12:13 Insulin Aspart (NovoLOG) 7 units NOVOTIAC SUBQ 01/10/19 06:30 02/06/19 11:49 01/12/19 12:12 Insulin Detemir (Levemir) 18 units EVERY 12 HOURS SUBQ 01/09/19 21:00 02/05/19 22:29 01/12/19 09:36 Lorazepam (Ativan 2mg/ml 1ml) 0.5 mg Q4H PRN IV For Anxiety 01/09/19 19:42 01/13/19 19:41 01/11/19 10:32 Lorazepam (Ativan 2mg/ml 1ml) 2 mg Q2H PRN IV SEIZURE 01/09/19 19:42 01/15/19 19:41 Morphine Sulfate (Morphine Sulfate) 1 mg Q4H PRN IVP Severe Pain (Pain Scale 7-10) 01/12/19 10:15 01/19/19 10:14 01/12/19 10:18 Ondansetron HCl (Zofran) 4 mg Q6H PRN IVP Nausea & Vomiting 01/09/19 20:30 02/05/19 14:24 01/12/19 10:18 Polyethylene Glycol (Miralax) 17 gm HSPRN PRN ORAL Constipation 01/09/19 19:43 02/08/19 19:42 Quetiapine Fumarate (SEROquel) 200 mg BEDTIME ORAL 01/09/19 21:00 02/05/19 20:59 01/11/19 21:19 Zolpidem Tartrate (Ambien) 5 mg HSPRN PRN ORAL Insomnia 01/09/19 19:43 01/16/19 19:42 Assessment/Plan Assessment/Plan Abx: None Assessment: Scalp superficial wound- not infected Chest pain- suspected 2ry to costochondritis 01/08 CXR: No acute findings. Afebrile No leukocytosis- no evidence of active infectious process Seizures episodes hx of syncopal episodes neuropathy COPD CVA w/ left side weakness Dm2 CAD lumbar spine surgery obesity bipolar disorder seizure disorder HTN Plan: -Continue to monitor off abx -f.u cx -Monitor CBC/CMP, temperatures -aspiration precautions -Cards, neuro f/u -local wound care per hospital protocol Thank you for this consultation. Will continue to follow along with you. Natalya Lopez M.D. Jan 12, 2019 14:32
--- NOTE | 2019-01-12 14:38 | General Progress Note ---
Assessment/Plan Problem List: (1) ACS (acute coronary syndrome) ICD Codes: I24.9 - Acute ischemic heart disease, unspecified SNOMED: 133658327 (2) Diabetes mellitus ICD Codes: E11.9 - Diabetes mellitus SNOMED: 07675490 (3) COPD (chronic obstructive pulmonary disease) ICD Codes: J44.9 - Chronic obstructive pulmonary disease, unspecified SNOMED: 24225219 (4) CVA (cerebral vascular accident) ICD Codes: I63.9 - Cerebral infarction, unspecified SNOMED: 436676450 (5) Uncontrolled seizures ICD Codes: R56.9 - Unspecified convulsions SNOMED: 98446988 Status: stable, progressing Assessment/Plan seizure control pt diet pain control cardio f/u bp bs control cbc bmp am dc plan if clear Subjective Constitutional: Reports: weakness Allergies: Coded Allergies: HALOPERIDOL (Verified Allergy, Unknown, 11/30/18) All Systems: reviewed and negative except above Subjective calm in bed Objective Last 24 Hour Vital Signs Date Time Temp Pulse Resp B/P (MAP) Pulse Ox O2 Delivery O2 Flow Rate FiO2 01/12/19 12:00 97.9 74 16 114/63 (80) 98 01/12/19 09:00 Room Air 01/12/19 08:00 93 22 125/72 (89) 95 93 01/12/19 07:45 79 20 Room Air 21 01/12/19 04:00 98.4 65 18 110/60 (77) 97 01/11/19 21:38 103 20 Room Air 21 01/11/19 21:00 Room Air 01/11/19 20:00 98.2 61 20 115/61 (79) 96 01/11/19 17:43 97.6 Intake and Output 01/11/19 01/12/19 18:59 06:59 Intake Total 1080 ml Balance 1080 ml Intake Oral 1080 ml Laboratory Tests 01/12/19 08:55: White Blood Count 7.8, Red Blood Count 4.57L, Hemoglobin 13.5L, Hematocrit 39.7L , Mean Corpuscular Volume 87, Mean Corpuscular Hemoglobin 29.6, Mean Corpuscular Hemoglobin Concent 34.1, Red Cell Distribution Width 12.2, Platelet Count 139L, Mean Platelet Volume 8.0, Neutrophils (%) (Auto) 50.8, Lymphocytes ( %) (Auto) 36.4, Monocytes (%) (Auto) 9.1, Eosinophils (%) (Auto) 2.9, Basophils (%) (Auto) 0.9, Sodium Level 137, Potassium Level 4.0, Chloride Level 101, Carbon Dioxide Level 26, Anion Gap 10, Blood Urea Nitrogen 19H, Creatinine 0.9, Estimat Glomerular Filtration Rate > 60, Glucose Level 209H, Calcium Level 9.2 Height (Feet): 5 Height (Inches): 11.00 Weight (Pounds): 264 General Appearance: lethargic EENT: normal ENT inspection Neck: normal alignment Cardiovascular: normal peripheral pulses, normal rate, regular rhythm Respiratory/Chest: chest wall non-tender, lungs clear, normal breath sounds Abdomen: normal bowel sounds, non tender, soft Extremities: normal inspection Edema: no edema noted Arm (L), no edema noted Arm (R), no edema noted Leg (L), no edema noted Leg (R), no edema noted Pedal (L), no edema noted Pedal (R), no edema noted Generalized Neurologic: responsive, motor weakness Skin: normal pigmentation, warm/dry Aniceto Sepulveda DO Jan 12, 2019 14:38
--- NOTE | 2019-01-12 15:00 | NUR ---
NURSE NOTES: RN SPOKE TO TREE SINGLETON AND MADE AWARE FOR CASE MANAGEMENT PLANS FOR [facility]. NEEDS PRESCRIPTIONS FOR PAIN MEDS.; PER TREE SINGLETON, HE WILL CALL IN TO [facility]. CRN MADE AWARE.
[2019-01-12 16:00] VITALS: BP 129/70
[2019-01-12] MEDS ORDERED: Hydrocortisone 1% Cr 30gm TOPIC PRN (16:30)
--- NOTE | 2019-01-12 16:45 | Progress Note ---
DATE: 01/12/2019 SUBJECTIVE: This is a 38-year-old male patient with acute coronary syndrome. He has altered mental status, confusion, declined in cognition below his baseline so his attending has requested daily psychiatric consultation. MENTAL STATUS EXAMINATION: The patient is a 38-year-old male. Appearance is disheveled. Attitude, irritable and agitated. Affect, guarded and restricted. Intellect poor. Mood depressed and anxious. Motor activity, psychomotor agitation. Attention is poor. Orientation x2. Speech is low volume and slurred. Thought process, disorganized and illogical. Insight and judgment is poor. DIAGNOSIS: Schizoaffective, bipolar type. PLAN: Treat him with Depakote 500 mg q.12 h., Xanax 0.5 every six hours p.r.n. anxiety and agitation, Lexapro 10 mg q.a.m., Seroquel 200 at bedtime. Provided him with 20 minutes of cognitive behavioral therapy to help him identify his automatic negative thoughts and help him convert those negative thoughts to more positive thinking automatically in order to reduce depression, anxiety, and help him have more adaptive behavioral pattern. Chart was reviewed. Discussed with staff. Seen and assessed at bedside. Charmaine Victor M.D. DR: Shania JOB#: [id number] CC:
--- NOTE | 2019-01-12 18:29 | NUR ---
NURSE NOTES: RN LEFT MESSAGE FOR DR. VALENCIA REGARDING PT REQUIRING PRESCRIPTIONS FOR GLUCOMETER, STRIPS, AND NOVOLOG DUE TO PLANS FOR PT BEING DISCHARGED TO [facility], [facility].
--- NOTE | 2019-01-12 19:37 | NUR ---
HAND-OFF: Report given to Estefania SORENSEN RN.
--- NOTE | 2019-01-12 19:37 | NUR ---
NURSE NOTES: Received patient on bed awake, no s/s of any distress, denies pain as of this time, IV line patent and intact, side rails are padded, Bed in low position and locked, call light within reach, will continue to monitor.
[2019-01-12 20:00] VITALS: BP 118/71
[2019-01-12] MEDS: LORazepam Inj 2mg/ml 1ml IV PRN (21:48)
[2019-01-12] MEDS: QUEtiapine 200mg tab ORAL SCH (22:04)
--- NOTE | 2019-01-12 23:51 | Cardiology Progress Note ---
Assessment/Plan Assessment/Plan The patient is seen and examined, full consult note will be dictated. Objective Last 24 Hour Vital Signs Date Time Temp Pulse Resp B/P (MAP) Pulse Ox O2 Delivery O2 Flow Rate FiO2 01/12/19 21:00 Room Air 01/12/19 20:50 78 20 Nasal Cannula 2.0 28 01/12/19 20:00 98.2 79 18 118/71 (87) 94 01/12/19 16:00 98.2 97 19 129/70 (89) 96 01/12/19 12:00 97.9 74 16 114/63 (80) 98 01/12/19 09:00 Room Air 01/12/19 08:00 93 22 125/72 (89) 95 93 01/12/19 07:45 79 20 Room Air 21 01/12/19 04:00 98.4 65 18 110/60 (77) 97 Intake and Output 01/11/19 01/12/19 19:00 07:00 Intake Total 1080 ml Balance 1080 ml Intake Oral 1080 ml Laboratory Tests Test 01/12/19 08:55 White Blood Count 7.8 K/UL (4.8-10.8) Red Blood Count 4.57 M/UL (4.70-6.10) L Hemoglobin 13.5 G/DL (14.2-18.0) L Hematocrit 39.7 % (42.0-52.0) L Mean Corpuscular Volume 87 FL (80-99) Mean Corpuscular Hemoglobin 29.6 PG (27.0-31.0) Mean Corpuscular Hemoglobin Concent 34.1 G/DL (32.0-36.0) Red Cell Distribution Width 12.2 % (11.6-14.8) Platelet Count 139 K/UL (150-450) L Mean Platelet Volume 8.0 FL (6.5-10.1) Neutrophils (%) (Auto) 50.8 % (45.0-75.0) Lymphocytes (%) (Auto) 36.4 % (20.0-45.0) Monocytes (%) (Auto) 9.1 % (1.0-10.0) Eosinophils (%) (Auto) 2.9 % (0.0-3.0) Basophils (%) (Auto) 0.9 % (0.0-2.0) Sodium Level 137 MMOL/L (136-145) Potassium Level 4.0 MMOL/L (3.5-5.1) Chloride Level 101 MMOL/L (98-107) Carbon Dioxide Level 26 MMOL/L (21-32) Anion Gap 10 mmol/L (5-15) Blood Urea Nitrogen 19 mg/dL (7-18) H Creatinine 0.9 MG/DL (0.55-1.30) Estimat Glomerular Filtration Rate > 60 mL/min (>60) Glucose Level 209 MG/DL (74-106) H Calcium Level 9.2 MG/DL (8.5-10.1) Hayes Mae MD Jan 12, 2019 23:51
[2019-01-13] VITALS: BP 110/65
[2019-01-13] MEDS ORDERED: Depakote 500mg tab ORAL SCH
[2019-01-13] MEDS: HYDROcodone/Acetamin 10/325 tab ORAL PRN (02:33)
[2019-01-13] MEDS: Morphine Sulfate 2mg/ml Inj(IV/IM USE ONLY) IVP PRN ×3 (03:56→12:17)
[2019-01-13 04:00] VITALS: BP 106/59
[2019-01-13] MEDS: LORazepam Inj 2mg/ml 1ml IV PRN ×3 (05:49→14:05)
[2019-01-13] MEDS: NovoLOG Insulin Flexpen SUBQ SCH ×4 (05:54→12:27)
--- NOTE | 2019-01-13 06:40 | General Progress Note ---
Assessment/Plan Problem List: (1) COPD (chronic obstructive pulmonary disease) ICD Codes: J44.9 - Chronic obstructive pulmonary disease, unspecified SNOMED: 36415556 (2) Diabetes mellitus ICD Codes: E11.9 - Diabetes mellitus SNOMED: 06150819 Assessment/Plan continue Levemir 18 units bid continuu Novolog 7 units ac tid continue NISS ac / hs Subjective Allergies: Coded Allergies: HALOPERIDOL (Verified Allergy, Unknown, 11/30/18) All Systems: reviewed and negative except above Subjective events noted Item Value Date Time Bedside Blood Glucose 280 mg/dl H 01/13/19 0601 Bedside Blood Glucose 302 mg/dl H 01/12/19 2100 Bedside Blood Glucose 259 mg/dl H 01/12/19 1705 Bedside Blood Glucose 152 mg/dl H 01/12/19 1213 Bedside Blood Glucose 183 mg/dl H 01/12/19 0936 Bedside Blood Glucose 183 mg/dl H 01/12/19 0630 Objective Last 24 Hour Vital Signs Date Time Temp Pulse Resp B/P (MAP) Pulse Ox O2 Delivery O2 Flow Rate FiO2 01/13/19 04:00 98.2 82 20 106/59 (75) 94 01/13/19 00:00 98.4 72 18 110/65 (80) 95 01/12/19 21:00 Room Air 01/12/19 20:50 78 20 Nasal Cannula 2.0 28 01/12/19 20:00 98.2 79 18 118/71 (87) 94 01/12/19 16:00 98.2 97 19 129/70 (89) 96 01/12/19 12:00 97.9 74 16 114/63 (80) 98 01/12/19 09:00 Room Air 01/12/19 08:00 93 22 125/72 (89) 95 93 01/12/19 07:45 79 20 Room Air 21 Intake and Output 01/12/19 01/13/19 19:00 07:00 Intake Total 960 ml 480 ml Balance 960 ml 480 ml Intake Oral 960 ml 480 ml Laboratory Tests 01/12/19 08:55: White Blood Count 7.8, Red Blood Count 4.57L, Hemoglobin 13.5L, Hematocrit 39.7L , Mean Corpuscular Volume 87, Mean Corpuscular Hemoglobin 29.6, Mean Corpuscular Hemoglobin Concent 34.1, Red Cell Distribution Width 12.2, Platelet Count 139L, Mean Platelet Volume 8.0, Neutrophils (%) (Auto) 50.8, Lymphocytes ( %) (Auto) 36.4, Monocytes (%) (Auto) 9.1, Eosinophils (%) (Auto) 2.9, Basophils (%) (Auto) 0.9, Sodium Level 137, Potassium Level 4.0, Chloride Level 101, Carbon Dioxide Level 26, Anion Gap 10, Blood Urea Nitrogen 19H, Creatinine 0.9, Estimat Glomerular Filtration Rate > 60, Glucose Level 209H, Calcium Level 9.2 Height (Feet): 5 Height (Inches): 11.00 Weight (Pounds): 264 General Appearance: no apparent distress Neck: normal alignment Respiratory/Chest: lungs clear Abdomen: normal bowel sounds Objective Current Medications Medications (Trade) Dose Ordered Sig/Sofia Route PRN Reason Start Time Stop Time Status Last Admin Dose Admin Acetaminophen (Tylenol) 650 mg Q4H PRN ORAL fever 01/09/19 19:40 02/05/19 19:39 Acetaminophen/ Hydrocodone Bitart ([place] 10/325) 1 tab Q6H PRN ORAL moderate breakthrough pain 01/12/19 09:00 01/16/19 08:59 01/13/19 02:33 Al Hydroxide/Mg Hydroxide (Mylanta II) 30 ml Q6H PRN ORAL dyspepsia 01/09/19 19:41 02/05/19 19:40 Alprazolam (Xanax) 0.5 mg Q6H PRN ORAL For Anxiety 01/09/19 19:41 01/13/19 19:40 01/12/19 14:14 Aspirin (ASA) 81 mg DAILY ORAL 01/10/19 09:00 02/06/19 08:59 01/12/19 09:01 Atorvastatin Calcium (Lipitor) 20 mg BEDTIME ORAL 01/13/19 21:00 02/12/19 20:59 Clonidine HCl (Catapres Tab) 0.1 mg Q4H PRN ORAL For High Blood Pressure 01/09/19 19:41 02/05/19 19:40 Dextrose (Dextrose 50%) 25 ml Q30M PRN IV Hypoglycemia 01/09/19 20:00 02/05/19 17:59 Dextrose (Dextrose 50%) 50 ml Q30M PRN IV Hypoglycemia 01/09/19 20:00 02/05/19 17:59 Divalproex Sodium (Depakote) 500 mg Q12HR ORAL 01/09/19 21:00 02/05/19 20:59 01/12/19 20:37 Escitalopram Oxalate (Lexapro) 10 mg DAILY ORAL 01/10/19 09:00 02/06/19 08:59 01/12/19 09:01 Heparin Sodium (Porcine) (Heparin 5000 units/ml) 5,000 units EVERY 12 HOURS SUBQ 01/09/19 21:00 02/05/19 20:59 Hydrocortisone (Hydrocortisone) 1 applic BIDPRN PRN TOPIC Itching 01/12/19 16:30 02/11/19 16:29 Insulin Aspart (NovoLOG) BEFORE MEALS AND HS SUBQ 01/09/19 21:00 02/05/19 20:59 01/13/19 05:54 Insulin Aspart (NovoLOG) 7 units NOVOTIAC SUBQ 01/10/19 06:30 02/06/19 11:49 01/13/19 05:54 Insulin Detemir (Levemir) 18 units EVERY 12 HOURS SUBQ 01/09/19 21:00 02/05/19 22:29 01/12/19 20:41 Lorazepam (Ativan 2mg/ml 1ml) 0.5 mg Q4H PRN IV For Anxiety 01/09/19 19:42 01/13/19 19:41 01/13/19 05:49 Lorazepam (Ativan 2mg/ml 1ml) 2 mg Q2H PRN IV SEIZURE 01/09/19 19:42 01/15/19 19:41 Morphine Sulfate (Morphine Sulfate) 1 mg Q4H PRN IVP Severe Pain (Pain Scale 7-10) 01/12/19 10:15 01/19/19 10:14 01/13/19 03:56 Mupirocin (Bactroban Oint) 1 applic THREE TIMES A DAY TOPIC 01/12/19 18:00 01/17/19 17:59 01/12/19 18:19 Ondansetron HCl (Zofran) 4 mg Q6H PRN IVP Nausea & Vomiting 01/09/19 20:30 02/05/19 14:24 01/13/19 03:56 Polyethylene Glycol (Miralax) 17 gm HSPRN PRN ORAL Constipation 01/09/19 19:43 02/08/19 19:42 Quetiapine Fumarate (SEROquel) 200 mg BEDTIME ORAL 01/09/19 21:00 02/05/19 20:59 01/12/19 22:04 Zolpidem Tartrate (Ambien) 5 mg HSPRN PRN ORAL Insomnia 01/09/19 19:43 01/16/19 19:42 Tavo Malhotra MD Jan 13, 2019 06:40
--- NOTE | 2019-01-13 07:30 | NUR ---
NURSE NOTES: Received pt from JAKE WOOD. Pt is alert and orient x4. pt is in RA. No SOB or acute respiratory distress noted. pt has intact iv access R wrist 20G SL. pt is eating breakfast. all needs attended, bed is locked and is in the lowest position. call light within easy reach. will continue to monitor.
--- NOTE | 2019-01-13 07:43 | NUR ---
HAND-OFF: Report given to Chris JOSEPH.
[2019-01-13 08:00] VITALS: BP 110/63
[2019-01-13] MEDS: Aspirin Baby 81mg ORAL SCH (08:12)
[2019-01-13] MEDS: Heparin 5000 units/ml inj SUBQ SCH (08:13)
[2019-01-13] MEDS: Depakote 500mg tab ORAL SCH (08:13)
[2019-01-13] MEDS: Levemir Flexpen SUBQ SCH (08:25)
--- NOTE | 2019-01-13 11:30 | NUR ---
Social Service Note Patient accepted at [facility] [address] [address], . Discharge plan discussed with patient who is agreeable to dc location. Homeless discharge check list completed and provided to charge nurse. Pending medication delivery from [facility]. Patient will transfer via taxi to location. Will continue to be available as needed.
[2019-01-13 12:00] VITALS: BP 125/71
--- NOTE | 2019-01-13 12:37 | Pulmonology Progress Note ---
Assessment/Plan Problems: (1) Costochondritis (2) COPD (chronic obstructive pulmonary disease) (3) ACS (acute coronary syndrome) (4) Diabetes mellitus (5) Noncompliance Assessment/Plan no new complains symptomatic treatment seizures or pseudo seizures better controlled sliding scale diabetic diet pain management doing better dc planning. Subjective ROS Limited/Unobtainable: No Constitutional: Reports: no symptoms HEENT: Repors: no symptoms Allergies: Coded Allergies: HALOPERIDOL (Verified Allergy, Unknown, 11/30/18) Objective Last 24 Hour Vital Signs Date Time Temp Pulse Resp B/P (MAP) Pulse Ox O2 Delivery O2 Flow Rate FiO2 01/13/19 12:00 98.5 84 20 125/71 (89) 99 01/13/19 09:00 Room Air 01/13/19 08:40 98.0 01/13/19 08:00 98.0 73 19 110/63 (79) 96 01/13/19 04:00 98.2 82 20 106/59 (75) 94 01/13/19 00:00 98.4 72 18 110/65 (80) 95 01/12/19 21:00 Room Air 01/12/19 20:50 78 20 Nasal Cannula 2.0 28 01/12/19 20:00 98.2 79 18 118/71 (87) 94 01/12/19 16:00 98.2 97 19 129/70 (89) 96 Intake and Output 01/12/19 01/13/19 18:59 06:59 Intake Total 960 ml 480 ml Balance 960 ml 480 ml Intake Oral 960 ml 480 ml Objective General Appearance: WD/WN HEENT: normocephalic, atraumatic Respiratory/Chest: chest wall non-tender, lungs clear Cardiovascular: normal peripheral pulses, normal rate Abdomen: normal bowel sounds, soft, non tender Genitourinary: normal external genitalia Extremities: no clubbing Skin: no rash, no lesions, no ulcers 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, no motor/sensory deficits, abnormal gait Lymphatic: no neck adenopathy Musculoskeletal: normal muscle bulk Current Medications Medications (Trade) Dose Ordered Sig/Sofia Route PRN Reason Start Time Stop Time Status Last Admin Dose Admin Acetaminophen (Tylenol) 650 mg Q4H PRN ORAL fever 01/09/19 19:40 02/05/19 19:39 Acetaminophen/ Hydrocodone Bitart ([place] 10/325) 1 tab Q6H PRN ORAL moderate breakthrough pain 01/12/19 09:00 01/16/19 08:59 01/13/19 02:33 Al Hydroxide/Mg Hydroxide (Mylanta II) 30 ml Q6H PRN ORAL dyspepsia 01/09/19 19:41 02/05/19 19:40 Alprazolam (Xanax) 0.5 mg Q6H PRN ORAL For Anxiety 01/09/19 19:41 01/13/19 19:40 01/12/19 14:14 Aspirin (ASA) 81 mg DAILY ORAL 01/10/19 09:00 02/06/19 08:59 01/13/19 08:12 Atorvastatin Calcium (Lipitor) 20 mg BEDTIME ORAL 01/13/19 21:00 02/12/19 20:59 Clonidine HCl (Catapres Tab) 0.1 mg Q4H PRN ORAL For High Blood Pressure 01/09/19 19:41 02/05/19 19:40 Dextrose (Dextrose 50%) 25 ml Q30M PRN IV Hypoglycemia 01/09/19 20:00 02/05/19 17:59 Dextrose (Dextrose 50%) 50 ml Q30M PRN IV Hypoglycemia 01/09/19 20:00 02/05/19 17:59 Divalproex Sodium (Depakote) 500 mg Q12HR ORAL 01/09/19 21:00 02/05/19 20:59 01/13/19 08:13 Escitalopram Oxalate (Lexapro) 10 mg DAILY ORAL 01/10/19 09:00 02/06/19 08:59 01/13/19 08:12 Heparin Sodium (Porcine) (Heparin 5000 units/ml) 5,000 units EVERY 12 HOURS SUBQ 01/09/19 21:00 02/05/19 20:59 Hydrocortisone (Hydrocortisone) 1 applic BIDPRN PRN TOPIC Itching 01/12/19 16:30 02/11/19 16:29 01/13/19 12:18 Insulin Aspart (NovoLOG) BEFORE MEALS AND HS SUBQ 01/09/19 21:00 02/05/19 20:59 01/13/19 12:26 Insulin Aspart (NovoLOG) 7 units NOVOTIAC SUBQ 01/10/19 06:30 02/06/19 11:49 01/13/19 12:27 Insulin Detemir (Levemir) 18 units EVERY 12 HOURS SUBQ 01/09/19 21:00 02/05/19 22:29 01/13/19 08:25 Lorazepam (Ativan 2mg/ml 1ml) 0.5 mg Q4H PRN IV For Anxiety 01/09/19 19:42 01/13/19 19:41 01/13/19 10:02 Lorazepam (Ativan 2mg/ml 1ml) 2 mg Q2H PRN IV SEIZURE 01/09/19 19:42 01/15/19 19:41 Morphine Sulfate (Morphine Sulfate) 1 mg Q4H PRN IVP Severe Pain (Pain Scale 7-10) 01/12/19 10:15 01/19/19 10:14 01/13/19 12:17 Mupirocin (Bactroban Oint) 1 applic THREE TIMES A DAY TOPIC 01/12/19 18:00 01/17/19 17:59 01/13/19 12:18 Ondansetron HCl (Zofran) 4 mg Q6H PRN IVP Nausea & Vomiting 01/09/19 20:30 02/05/19 14:24 01/13/19 12:17 Polyethylene Glycol (Miralax) 17 gm HSPRN PRN ORAL Constipation 01/09/19 19:43 02/08/19 19:42 Quetiapine Fumarate (SEROquel) 200 mg BEDTIME ORAL 01/09/19 21:00 02/05/19 20:59 01/12/19 22:04 Zolpidem Tartrate (Ambien) 5 mg HSPRN PRN ORAL Insomnia 01/09/19 19:43 01/16/19 19:42 Lashanda Pham MD Jan 13, 2019 12:37
--- NOTE | 2019-01-13 13:41 | Infectious Diseases Prog Note ---
Assessment/Plan Assessment/Plan Abx: None Assessment: Scalp superficial wound- not infected Chest pain- suspected 2ry to costochondritis 01/08 CXR: No acute findings. Afebrile No leukocytosis- no evidence of active infectious process Seizures episodes hx of syncopal episodes neuropathy COPD CVA w/ left side weakness Dm2 CAD lumbar spine surgery obesity bipolar disorder seizure disorder HTN Plan: -Continue to monitor off abx -f.u cx -Monitor CBC/CMP, temperatures -aspiration precautions -Cards, neuro f/u -local wound care per hospital protocol Thank you for this consultation. Will continue to follow along with you. Subjective Allergies: Coded Allergies: HALOPERIDOL (Verified Allergy, Unknown, 11/30/18) Subjective afebrile no leukocytosis discharge planning Objective Vital Signs Last 24 Hour Vital Signs Date Time Temp Pulse Resp B/P (MAP) Pulse Ox O2 Delivery O2 Flow Rate FiO2 01/13/19 12:47 98.5 01/13/19 12:00 98.5 84 20 125/71 (89) 99 01/13/19 09:00 Room Air 01/13/19 08:00 98.0 73 19 110/63 (79) 96 01/13/19 04:00 98.2 82 20 106/59 (75) 94 01/13/19 00:00 98.4 72 18 110/65 (80) 95 01/12/19 21:00 Room Air 01/12/19 20:50 78 20 Nasal Cannula 2.0 28 01/12/19 20:00 98.2 79 18 118/71 (87) 94 01/12/19 16:00 98.2 97 19 129/70 (89) 96 Height (Feet): 5 Height (Inches): 11.00 Weight (Pounds): 264 Objective GENERAL: Calm in bed, oriented x3, and in no acute distress. Head: scap in R frontal area on scalp- some scabbing from scathing, no signs of infection CARDIOVASCULAR: No murmurs. LUNGS: Distant and clear. ABDOMEN: Bowel sounds positive. Nontender. Nondistended. EXTREMITIES: No cyanosis, clubbing, or edema. NEUROLOGIC: The patient moves all extremities, slightly weak Current Medications Medications (Trade) Dose Ordered Sig/Sofia Route PRN Reason Start Time Stop Time Status Last Admin Dose Admin Acetaminophen (Tylenol) 650 mg Q4H PRN ORAL fever 01/09/19 19:40 02/05/19 19:39 Acetaminophen/ Hydrocodone Bitart ([place] 10/325) 1 tab Q6H PRN ORAL moderate breakthrough pain 01/12/19 09:00 01/16/19 08:59 01/13/19 02:33 Al Hydroxide/Mg Hydroxide (Mylanta II) 30 ml Q6H PRN ORAL dyspepsia 01/09/19 19:41 02/05/19 19:40 Alprazolam (Xanax) 0.5 mg Q6H PRN ORAL For Anxiety 01/09/19 19:41 01/13/19 19:40 01/12/19 14:14 Aspirin (ASA) 81 mg DAILY ORAL 01/10/19 09:00 02/06/19 08:59 01/13/19 08:12 Atorvastatin Calcium (Lipitor) 20 mg BEDTIME ORAL 01/13/19 21:00 02/12/19 20:59 Clonidine HCl (Catapres Tab) 0.1 mg Q4H PRN ORAL For High Blood Pressure 01/09/19 19:41 02/05/19 19:40 Dextrose (Dextrose 50%) 25 ml Q30M PRN IV Hypoglycemia 01/09/19 20:00 02/05/19 17:59 Dextrose (Dextrose 50%) 50 ml Q30M PRN IV Hypoglycemia 01/09/19 20:00 02/05/19 17:59 Divalproex Sodium (Depakote) 500 mg Q12HR ORAL 01/09/19 21:00 02/05/19 20:59 01/13/19 08:13 Escitalopram Oxalate (Lexapro) 10 mg DAILY ORAL 01/10/19 09:00 02/06/19 08:59 01/13/19 08:12 Heparin Sodium (Porcine) (Heparin 5000 units/ml) 5,000 units EVERY 12 HOURS SUBQ 01/09/19 21:00 02/05/19 20:59 Hydrocortisone (Hydrocortisone) 1 applic BIDPRN PRN TOPIC Itching 01/12/19 16:30 02/11/19 16:29 01/13/19 12:18 Insulin Aspart (NovoLOG) BEFORE MEALS AND HS SUBQ 01/09/19 21:00 02/05/19 20:59 01/13/19 12:26 Insulin Aspart (NovoLOG) 7 units NOVOTIAC SUBQ 01/10/19 06:30 02/06/19 11:49 01/13/19 12:27 Insulin Detemir (Levemir) 18 units EVERY 12 HOURS SUBQ 01/09/19 21:00 02/05/19 22:29 01/13/19 08:25 Lorazepam (Ativan 2mg/ml 1ml) 0.5 mg Q4H PRN IV For Anxiety 01/09/19 19:42 01/13/19 19:41 01/13/19 10:02 Lorazepam (Ativan 2mg/ml 1ml) 2 mg Q2H PRN IV SEIZURE 01/09/19 19:42 01/15/19 19:41 Morphine Sulfate (Morphine Sulfate) 1 mg Q4H PRN IVP Severe Pain (Pain Scale 7-10) 01/12/19 10:15 01/19/19 10:14 01/13/19 12:17 Mupirocin (Bactroban Oint) 1 applic THREE TIMES A DAY TOPIC 01/12/19 18:00 01/17/19 17:59 01/13/19 12:18 Ondansetron HCl (Zofran) 4 mg Q6H PRN IVP Nausea & Vomiting 01/09/19 20:30 02/05/19 14:24 01/13/19 12:17 Polyethylene Glycol (Miralax) 17 gm HSPRN PRN ORAL Constipation 01/09/19 19:43 02/08/19 19:42 Quetiapine Fumarate (SEROquel) 200 mg BEDTIME ORAL 01/09/19 21:00 02/05/19 20:59 01/12/19 22:04 Zolpidem Tartrate (Ambien) 5 mg HSPRN PRN ORAL Insomnia 01/09/19 19:43 01/16/19 19:42 Natalya Lopez M.D. Jan 13, 2019 13:41
--- NOTE | 2019-01-13 14:38 | General Progress Note ---
Assessment/Plan Problem List: (1) ACS (acute coronary syndrome) ICD Codes: I24.9 - Acute ischemic heart disease, unspecified SNOMED: 849479450 (2) Diabetes mellitus ICD Codes: E11.9 - Diabetes mellitus SNOMED: 83644247 (3) COPD (chronic obstructive pulmonary disease) ICD Codes: J44.9 - Chronic obstructive pulmonary disease, unspecified SNOMED: 71672519 (4) CVA (cerebral vascular accident) ICD Codes: I63.9 - Cerebral infarction, unspecified SNOMED: 806026015 (5) Uncontrolled seizures ICD Codes: R56.9 - Unspecified convulsions SNOMED: 69685471 Assessment/Plan seizure control pt diet pain control cardio f/u dc if clear Subjective Constitutional: Reports: weakness Allergies: Coded Allergies: HALOPERIDOL (Verified Allergy, Unknown, 11/30/18) All Systems: reviewed and negative except above Subjective calm in bed Objective Last 24 Hour Vital Signs Date Time Temp Pulse Resp B/P (MAP) Pulse Ox O2 Delivery O2 Flow Rate FiO2 01/13/19 12:47 98.5 01/13/19 12:00 98.5 84 20 125/71 (89) 99 01/13/19 09:00 Room Air 01/13/19 08:00 98.0 73 19 110/63 (79) 96 01/13/19 04:00 98.2 82 20 106/59 (75) 94 01/13/19 00:00 98.4 72 18 110/65 (80) 95 01/12/19 21:00 Room Air 01/12/19 20:50 78 20 Nasal Cannula 2.0 28 01/12/19 20:00 98.2 79 18 118/71 (87) 94 01/12/19 16:00 98.2 97 19 129/70 (89) 96 Intake and Output 01/12/19 01/13/19 18:59 06:59 Intake Total 960 ml 480 ml Balance 960 ml 480 ml Intake Oral 960 ml 480 ml Height (Feet): 5 Height (Inches): 11.00 Weight (Pounds): 264 General Appearance: alert EENT: normal ENT inspection Neck: normal alignment Cardiovascular: normal peripheral pulses, normal rate, regular rhythm Respiratory/Chest: chest wall non-tender, lungs clear, normal breath sounds Abdomen: normal bowel sounds, non tender, soft Extremities: normal inspection Edema: no edema noted Arm (L), no edema noted Arm (R), no edema noted Leg (L), no edema noted Leg (R), no edema noted Pedal (L), no edema noted Pedal (R), no edema noted Generalized Neurologic: responsive, motor weakness Skin: normal pigmentation, warm/dry Aniceto Sepulveda DO Jan 13, 2019 14:38
--- NOTE | 2019-01-13 15:30 | NUR ---
NURSE NOTES: Dr harris and Dr monroy visited pt. Received D/C order, all D/C assessments and instructions done. pt is stable, V/S stable, all prescribed meds received from PHARMACY and given to pt and instructed to pt about time, route, dose of meds and pt is aware to check BS before injecting Levemir and hold Levemir if BS is low. pt verbally confirmed to understand all. all belongings are with pt and iv access D/C , hospital prepared a cab for pt and pt left hospital.
--- NOTE | 2019-01-13 19:30 | Progress Note ---
DATE: 01/13/2019 SUBJECTIVE: This is a male patient who is 38 years old. He continues to have some acute coronary syndrome. He has got a lot of mood lability and agitation, worsened by stress of his medical illness that is why his attending physician has requested daily psychiatric consultation at this time. DIAGNOSIS: Schizoaffective bipolar type . PLAN: Treat him with Depakote 500 mg q.12 h., Seroquel 200 mg at bedtime, Xanax 0.5 mg every six hours p.r.n. anxiety and agitation, and Lexapro 10 mg daily. Provided him with 20 minutes of reality-based supportive psychotherapy. A 20 minutes of cognitive behavioral therapy to help him identify his automatic negative thoughts and help him convert those negative thoughts to more positive thoughts to reduce depression, anxiety, and suicidality. Chart was reviewed. Discussed with staff. Seen and assessed in his room. Charmaine Victor M.D. DR: Shania JOB#: [id number] CC:
[2019-01-13] MEDS ORDERED: Atorvastatin 20mg tab ORAL SCH (21:00)
--- NOTE | 2019-01-14 13:49 | Discharge Summary ---
Discharge Summary Discharge Summary _ DATE OF ADMISSION: 01/06/2019 DATE OF DISCHARGE: 01/13/2019 DISCHARGED BY: Dr. Aniceto Sepulveda CONSULTANTS: Dr. Natalya Chinchilla, [facility] COURSE: Patient is a 38-year-old male, who lives at home, presented to ED complaining of substernal chest pain, described to be sharp, 10 out of 10. Pain was worse with exertion. He took aspirin and it did not help. He denied fever or chills. He denied vomiting, diarrhea, calf pain or leg swelling. He has history of seizure disorder, diabetes mellitus, CVA, hypertension, chronic back pain and psychosis. On evaluation at ED, vital signs were stable. Blood work showed glucose level of 255. Troponin was negative. Electrolytes were normal. EKG done showed normal sinus rhythm with no acute changes. Chest x-ray was negative. He was given aspirin, nitroglycerin paste, morphine and Zofran. He was admitted for evaluation of ACS. Cardiac enzymes were monitored. He was seen by ekg monitor. Patient had full cardiac workup done from prior admissions. He had a nonischemic nuclear stress done last January 2018. Twelve-lead electrocardiogram upon admission did not show any ischemic features. He had an echocardiogram done on July 2018 that showed normal LV systolic function with LVEF of about 60-65%. He was continued on aspirin. Lipid panel was elevated. He was given Lipitor 20 mg nightly. Patient has a history of insulin-dependent diabetes. Blood glucose was monitored. He was continued on Levemir 18 units twice daily. NovoLog dose was titrated. He was given additional 7 units ac tid. He was noncompliant with diet and medication. He has history of schizoaffective disorder. He was seen by psychiatrist. He was continued on Depakote 500 mg 12 hours, Seroquel 200 mg nightly, Lexapro 10 mg daily and Xanax 0.5 mg every 6 hours prn. Pain management was consulted. He was given morphine and [place]. Patient has history of seizure disorder. Neuro evaluation was done. He was continued on Depakote 500 mg twice a day. On 01/08/2019, he apparently had a seizure episode. He was transferred to ICU. He was placed on seizure precautions EEG showed encephalopathy of mild degree. EEG was in normal range activity. There was no epileptiform abnormality. Head CT showed stable postoperative changes from suboccipital craniectomy. There was no acute intracranial hemorrhage, infarct or mass. 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 Patient was noncompliant with his medications. He was transferred out of ICU. Patient had a scalp wound resultant from seizure. ID was called to evaluate the wounds. There were no signs of infection. There was no leukocytosis, scalp superficial wound did not seem infected. He was recommended off antibiotics. He was given local wound care per protocol. He was given topical mupirocin ointment for the wound. Social service was consulted regarding discharge plans. Patient was homeless and was accepted at [facility]. He was provided with discharge medications and transportation. Patient was eventually discharged. FINAL DIAGNOSES: Chest pain, suspect secondary to costochondritis Seizure disorder Schizoaffective disorder bipolar type Superficial scalp wound COPD CVA with left-sided hemiparesis Dependent diabetes mellitus Coronary artery disease Hypertension History of lumbar spine surgery Neuropathy Noncompliance DISPOSITION: Patient was discharged home. DISCHARGE MEDICATIONS: Refer to Discharge Medication List. DISCHARGE INSTRUCTIONS: Follow-up in a week. I have been assigned to complete a discharge summary on this account, I was not involved with the patient's management. Jocy Valdes NP Jan 14, 2019 13:49
== END 2019-01-13 15:36 | disposition home or self-care (01) | DRG 206 ==
LOC: EMR 14:10 → 2E 15:25 → EDBEDREQ 15:34 → 2E 20:14 → 4E 01-08 06:34 → ICU 01-08 13:45 → 4E 01-09 19:00
PROC: 4A00X4Z Measurement of Central Nervous Electrical Activity, External Approach (ICD-10-PCS; principal; 2019-01-11)
DX: M94.0 Chondrocostal junction syndrome [Tietze] (principal); I69.954 Hemiplegia and hemiparesis following unspecified cerebrovascular disease affecting left non-dominant side; J44.9 Chronic obstructive pulmonary disease, unspecified; F25.0 Schizoaffective disorder, bipolar type; G40.909 Epilepsy, unspecified, not intractable, without status epilepticus; E11.40 Type 2 diabetes mellitus with diabetic neuropathy, unspecified; K21.9 Gastro-esophageal reflux disease without esophagitis; I10 Essential (primary) hypertension; E66.9 Obesity, unspecified; I25.10 Atherosclerotic heart disease of native coronary artery without angina pectoris; Z79.4 Long term (current) use of insulin; Z91.14 Patient's other noncompliance with medication regimen; Z79.82 Long term (current) use of aspirin; Z68.36 Body mass index [BMI] 36.0-36.9, adult
CPT/HCPCS: 36415; 70450; 71045; 80048; 80053; 80061; 82550; 82962; 83880; 84484; 85025; 85610; 85730; 93005; 94640; 94664; 95819; 96374; 96375; 99285; J1815; J2405; S5561